=== PATIENT | female | born 1985 | race Caucasian/White ===

== ENCOUNTER 2022-01-23 22:54 | Emergency (ER) | payer OTHER, SELFPAY ==
[2022-01-23 22:58] VITALS: BP 123/83; PULSE 98; RESP 18; TEMP 36.6; O2SAT 100; BMI 31.1
--- NOTE | 2022-01-23 23:16 | ED.CHESTPAIN ---
HPI - Chest Pain General Time Seen by Provider: 23:16 Date Seen: 01/23/22 Chief Complaint: Chest Pain Stated Complaint: Chest Pain Time Seen by Provider: 01/23/22 23:16 Source: patient, RN notes reviewed and old records reviewed Mode of arrival: ambulatory Limitations: no limitations History of Present Illness HPI narrative: Noa is a very pleasant 36-year-old female not with a history of migraines who comes to the emergency room with chest pain. Patient notes that she has had lifelong episodes of chest pain that she cause anginal pains. She notes that when this happens she gets pain in her left anterior chest and it becomes hard to breathe. Traditionally these ring for approximately 1 minute. However she notes that over the past year she has had increasing pain. In the past 1-1/2 months she has had chest pain daily at baseline. She notes that pain will suddenly increased and she has caught her her heart rate exceeding 100 while at rest. This is been lasting up to 30 minutes. She states that she gets the ?bad pain? approximately 1 to 3 times a day. She did arrives it as sharp and under her left chest. She notes that she has never seen Cardiology nor has she had a stress test. This is associated with shortness of breath when it is at its worst. No nausea vomiting. Tonight approximately 2200 hours she awoke with pain in her chest radiating into her left shoulder and down her arm. She describes pins and needles in her arm and fingers. She states that this is persisting. She denies any neck pain. She has not had any trauma. She did have recent viral illness in early December. She describes this is a cold that was waxing and waning. She tested negative for COVID. She denies any lower extremity leg swelling history of DVT unusual cough. She has not had fever or chills. Patient also notes that she had a persistent migraine from December of 2020 until September of 2021. She states that during that time they tried multiple medications in the hopes that her headaches would improve. She did have chest pain at that time and the pain was blamed on medication. Related Data Home Medications Medication Instructions Recorded Confirmed clonazepam 1 mg tablet mg 01/23/22 duloxetine 20 mg capsule,delayed mg PO 01/23/22 release eletriptan 40 mg tablet mg 01/23/22 eptinezumab-jjmr 100 mg/mL mg IV 01/23/22 intravenous solution (Vyepti) escitalopram oxalate 5 mg tablet mg 01/23/22 hydroxyzine HCl 25 mg tablet mg 01/23/22 naproxen 500 mg tablet mg 01/23/22 olanzapine 10 mg tablet mg 01/23/22 onabotulinumtoxinA 200 unit unit 01/23/22 solution for injection (Botox) ondansetron 4 mg disintegrating mg 01/23/22 tablet promethazine 25 mg tablet mg 01/23/22 Allergies Allergy/AdvReac Type Severity Reaction Status Date / Time No Known Drug Allergies Allergy Verified 01/23/22 23:04 Review of Systems Status of ROS Reports: 10 or more systems reviewed and unremarkable except as noted in History and below PFSH [facility] Social History Smoking Status: Never smoker How often do you have a drink containing alcohol: monthly or less AUDIT-C Alcohol total score: 1 Non-prescribed substance use: denies use Exam Narrative 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 No tobacco or alcohol use No drug use Const Vital Signs, click to edit/add: Vital Signs - 24 hr 01/23/22 22:58 Temperature 97.8 F Pulse Rate [Left Pulse Oximeter] 98 Respiratory Rate 18 Blood Pressure [Right Upper Arm] 123/83 Pulse Oximetry 100 Oxygen Delivery Method Room Air Documenting provider has reviewed patient's vital signs: yes Common normals: no apparent distress, average body habitus, oriented x3 and no limitations General appearance: cooperative, comfortable and well kempt [facility] Common normals: head/scalp atraumatic Head and scalp: atraumatic Eye Common normals: PERRL General eye: normal appearance of both eyes Pupil: PERRL Neck & C-Spine Common normals: full ROM and supple Cervical spine: cervical ROM normal; no cervical spine tenderness Resp Common normals: normal respiratory effort and clear to auscultation bilaterally Effort & inspection: able to speak in complete sentences Auscultation: clear to auscultation bilaterally Cardio Common normals: regular rate and regular rhythm Rate: regular rate Rhythm: regular rhythm Heart sounds: no rubs Other: Patient did not note relief of her chest pain my leaning forward. No rub GI Common normals: soft to palpation Palpation: soft Common normals: no CVA tenderness Bladder/kidney exam: no CVA tenderness Back & Pelvis Common normals: no CVA tenderness Extremity Common normals: normal to inspection Neuro Common normals: oriented x3 Psych Common normals: mental status grossly normal and thought process normal Appearance: well kempt Thought process: normal thought process Course Course Hospital Course: Patient notes lifelong episodes of chest discomfort. Notes increasing episodes of this over the past 1 and half months with associated tachycardia but normal oximetry. We will do a rule out protocol with EKG and troponin x2. Will also check CBC, CRP, D-dimer, comprehensive panel and urinalysis. Chest x-ray pending. Will use Toradol 15 mg IV after initial troponin is negative. Vital Signs Vital signs: Initial Vital Signs Temperature 97.8 F 01/23/22 22:58 Temperature Source Temporal Artery Scan 01/23/22 22:58 Pulse Rate 98 01/23/22 22:58 Respiratory Rate 18 01/23/22 22:58 Blood Pressure 123/83 01/23/22 22:58 Blood Pressure Mean 96 01/23/22 22:58 Blood Pressure Position Sitting 01/23/22 22:58 Pulse Oximetry 100 01/23/22 22:58 Oxygen Delivery Method 01/23/22 22:58 Vital Signs Temperature 97.8 F 01/23/22 22:58 Pulse Rate 98 01/23/22 22:58 Respiratory Rate 18 01/23/22 22:58 Blood Pressure 123/83 01/23/22 22:58 Pulse Oximetry 100 01/23/22 22:58 Oxygen Delivery Method 01/23/22 22:58 Temperature 97.8 F 01/23/22 22:58 Pulse Rate 98 01/23/22 22:58 Respiratory Rate 18 01/23/22 22:58 Blood Pressure 123/83 01/23/22 22:58 Pulse Oximetry 100 01/23/22 22:58 Oxygen Delivery Method 01/23/22 22:58 MDM - Chest Pain MDM Narrative Medical decision making narrative: 1. Chest pain-patient has reassuring initial EKG and negative troponin. She is receiving Toradol at this time. No evidence of pericarditis, acute coronary syndrome. Awaiting D-dimer and inflammatory markers. If negative recommend follow-up with primary MD for stress test. Further disposition per my partner Dr. Barrientos. Medical Records Data Attestation: I reviewed the patient's medical records. Lab Data Attestation: I reviewed the patient's lab results. Labs: Lab Results 01/23/22 01/23/22 01/23/22 Range/Units 23:31 23:42 23:42 WBC 10.50 (4.50-11.00) K/uL RBC 4.46 (4.00-5.20) m/uL Hgb 13.0 (12.0-16.0) gm/dL Hct 38.8 (33.0-51.0) % MCV 87 (80-100) fL MCH 29 (26-34) pg MCHC 34 (32-36) gm/dL RDW Coeff of Yohan 13.1 (11.5-15.5) % Plt Count 373 (140-440) K/uL Neut % (Auto) 58.3 (42.0-72.0) % Lymph % (Auto) 29.0 (20-44) % Price % (Auto) 9.9 (0.0-11.0) % Eos % (Auto) 2.0 (0.0-7.0) % Baso % (Auto) 0.5 (0.0-3.0) % Neut # (Auto) 6.12 (1.7-7.0) K/uL Lymph # (Auto) 3.05 H (0.90-2.90) K/uL Price # (Auto) 1.00 H (0.00-0.90) K/UL Eos # (Auto) 0.21 (0.00-0.50) K/uL Baso # (Auto) 0.05 (0.00-0.30) K/uL Abs Immat Gran (auto) 0.03 (0.00-0.30) K/uL D-Dimer Quant (PE/DVT) 0.34 (0.00-0.50) ug/ml Sodium (135-149) mmol/L Potassium (3.6-5.1) mmol/L Chloride (96-114) mmol/L Carbon Dioxide (20-32) mmol/L BUN (5-24) mg/dL Creatinine (0.5-1.5) mg/dL Estimated Creat Clear Estimated GFR ml/min Glucose (60-115) mg/dL Calcium (8.4-10.6) mg/dL Total Bilirubin (0.1-1.5) mg/dL AST (12-35) U/L ALT (4-35) U/L Alkaline Phosphatase (40-150) U/L C-Reactive Protein (0.5-1.0) mg/dL Total Protein (6.0-8.3) g/dL Albumin (3.3-5.0) g/dL POC Troponin I 0.01 (0.01-0.04) ng/ml 01/23/22 Range/Units 23:42 WBC (4.50-11.00) K/uL RBC (4.00-5.20) m/uL Hgb (12.0-16.0) gm/dL Hct (33.0-51.0) % MCV (80-100) fL MCH (26-34) pg MCHC (32-36) gm/dL RDW Coeff of Yohan (11.5-15.5) % Plt Count (140-440) K/uL Neut % (Auto) (42.0-72.0) % Lymph % (Auto) (20-44) % Price % (Auto) (0.0-11.0) % Eos % (Auto) (0.0-7.0) % Baso % (Auto) (0.0-3.0) % Neut # (Auto) (1.7-7.0) K/uL Lymph # (Auto) (0.90-2.90) K/uL Price # (Auto) (0.00-0.90) K/UL Eos # (Auto) (0.00-0.50) K/uL Baso # (Auto) (0.00-0.30) K/uL Abs Immat Gran (auto) (0.00-0.30) K/uL D-Dimer Quant (PE/DVT) (0.00-0.50) ug/ml Sodium 138 (135-149) mmol/L Potassium 3.5 L (3.6-5.1) mmol/L Chloride 106 (96-114) mmol/L Carbon Dioxide 23 (20-32) mmol/L BUN 14 (5-24) mg/dL Creatinine 0.7 (0.5-1.5) mg/dL Estimated Creat Clear 89.56 Estimated GFR 116 ml/min Glucose 101 (60-115) mg/dL Calcium 10.2 (8.4-10.6) mg/dL Total Bilirubin 0.1 (0.1-1.5) mg/dL AST 25 (12-35) U/L ALT 25 (4-35) U/L Alkaline Phosphatase 71 (40-150) U/L C-Reactive Protein 1.1 H (0.5-1.0) mg/dL Total Protein 7.2 (6.0-8.3) g/dL Albumin 4.5 (3.3-5.0) g/dL POC Troponin I (0.01-0.04) ng/ml Imaging Data Chest x-ray: Attestation: I have reviewed the pertinent imaging results. My impression: No acute infiltrates or mediastinal widening. Radiologist's impression: INDINGS: The sensitivity and specificity of the exam are moderately limited by the patient`s body habitus.? Mediastinum: The mediastinum is normal in appearance. The heart silhouette is normal in size and morphology. Lung: Both lungs are unremarkable in appearance. The right apex is excluded. No sign of pleural effusion seen. No pneumothorax is identified. Bone and Soft tissue: Unremarkable for age. IMPRESSION: 1. No acute cardiopulmonary disease is seen. ECG Data Attestation: I personally reviewed and interpreted this ECG as follows: ECG interpretation date: 01/24/22 Interpretation: EKG 1. By my read shows sinus rhythm at a rate of 89. Isolated Q-wave in [address] or T-wave changes. No evidence of pericarditis or acute coronary syndrome. Discharge Plan Discharge Clinical Impression: Atypical chest pain Patient Disposition: Home, Self-Care Condition: Improved Additional Instructions: Follow-up with your primary MD or clinic. Would recommend stress testing. Return as needed or seek medical attention for worsening or onset of new symptoms. Prescriptions: No Action clonazepam 1 mg tablet olanzapine 10 mg tablet promethazine 25 mg tablet hydroxyzine HCl 25 mg tablet ondansetron 4 mg tablet,disintegrating naproxen 500 mg tablet eletriptan 40 mg tablet escitalopram oxalate 5 mg tablet duloxetine 20 mg capsule,delayed release(DR/EC) PO Botox 200 unit recon soln Label Comments: 200 unit every three months Vyepti 100 mg/mL solution IV Label Comments: 100 mg intravenously every three months Follow Up/Referrals: Olga Rivas, REMEDIATION PROJECT ENGINEER, EMISSIONS TESTING TECHNICIAN [Primary Care Provider] - Stand Alone Forms: [employer] Info Instructions
--- NOTE | 2022-01-23 23:31 | CRLHL7_ITS ---
For Patients: As a result of the Century Cures Act, medical imaging exams and procedure reports are released immediately into your electronic medical record. You may view this report before your referring provider. If you have questions, please contact your health care provider. INDICATION: Chest pain TECHNIQUE: Chest radiograph 1 view COMPARISON: None FINDINGS: The sensitivity and specificity of the exam are moderately limited by the patient`s body habitus. Mediastinum: The mediastinum is normal in appearance. The heart silhouette is normal in size and morphology. Lung: Both lungs are unremarkable in appearance. The right apex is excluded. No sign of pleural effusion seen. No pneumothorax is identified. Bone and Soft tissue: Unremarkable for age. IMPRESSION: 1. No acute cardiopulmonary disease is seen. Dictated by: Tevin Odonnell MD @ 01/23/2022 23:43:06 (Electronically Signed)
--- OUTSIDE RECORDS SUMMARY | 2022-01-23 23:47 | XMS_ITS | Encounter Summary ---
:1985 Author Organization [facility] Address [address] [place] [address] Care Team Providers Name Role Phone None, Pcp Primary Care Provider Unavailable Encounter Details Date Type Department Care Team Description 07/03/2020 Lab Luke Alas Sore throat [address] [place], [place] [address] Social History Tobacco Use Types Packs/Day Years Used Date Never Smoker Smokeless Tobacco: Never Used Alcohol Use Standard Drinks/Week Comments Yes 0 (1 standard drink = 0.6 oz pure alcoho l) social Alcohol Habits Answer Date Recorded How often do you have a drink containing alcohol? Not asked How many drinks containing alcohol do you have on a typical Not asked day when you are drinking? How often do you have six or more drinks on one occasion? No t asked Comment: social 07/03/2020 Sex Assigned at Date Recorded Not on file documented as of this encounter Plan of Treatment Not on filedocumented as of this encounter Procedures Procedure Name Priority Date/Time Associated Diagnosis Comme nts RAPID GROUP A STREP Routine 07/03/2020 2:50 PM Sore throat Re sults for this SCREEN PROFESSOR OF PHYSICS procedure are i n the results section. STREP A CULTURE, Routine 07/03/2020 2:50 PM Sore throat Resul ts for this THROAT PROFESSOR OF PHYSICS procedure are i n the results section. documented in this encounter Results Strep A culture, throat (07/03/2020 2:50 PM PROFESSOR OF PHYSICS) [facility] Method Time Signature Throat Strep Negative for 07/05/2020 [place] A Culture Group A 7:12 AM [facility] Strep at 48 LABORATORY hrs. Specimen Anatomical Collection Method Collection Time Receive d Time (Source) Location / / Volume Laterality Group A Strep 07/03/2020 2:50 PM 07/05/19 21 1:39 (Throat) PROFESSOR OF PHYSICS PM PROFESSOR OF PHYSICS Comment: GROUP A THROAT CULTURE Quinn Abraham MD LAB MICROBIOLOGY - GENERAL O AFTAB Performing Organization Address City/State/ZIP Code Phon e Number [facility] [address] [place] [id number] Rapid strep screen (07/03/2020 2:50 PM PROFESSOR OF PHYSICS) athologist Signature Strep A Ag, NEGATIVE Negative 07/03/2020 [facility] Rapid 3:41 PM PROFESSOR OF PHYSICS [place] Specimen Anatomical Collection Method Collection Time Receive d Time (Source) Location / / Volume Laterality Swab (Throat 07/03/2020 2:50 PM 2:59 Swab) PROFESSOR OF PHYSICS PM PROFESSOR OF PHYSICS Quinn Abraham MD LAB BODY FLUIDS AND STOOLS O AFTAB Performing Organization Address City/State/ZIP Code Phon e Number [facility] [address] [place] [address] documented in this encounter Visit Diagnoses Diagnosis Sore throat Acute pharyngitis documented in this encounter Care Teams Transit Planning Director Relationship Specialty Start Date End Date None, Pcp PCP - General Drywall Stripper 07/03/20 [address] [place] [address] documented as of this encounter
--- OUTSIDE RECORDS SUMMARY | 2022-01-23 23:47 | XMS_ITS | Encounter Summary ---
:1985 Author Organization [facility] Address [address] [place] [address] Care Team Providers Name Role Phone Sharon Mijares MD Primary Care Provider [phone] Reason for Visit Procedure/Equipment (Routine) - Incomplete Specialty Diagnoses / Procedures Referred By Contact Refer red To Contact Diagnoses Cervicogenic headache Chronic migraine without aura without status migrainosus, not intractable Josey Stringer, ELECTRICAL HARDWARE ENGINEER, Procedures MR Cervical Spine WO IV Cont HAND BINDER STRIPPER [address] [place], [place] [address] Referral ID Status Reason Start Date Expiration Date Visits V isits Requested Authorized [id number] Incomplete 03/27/2021 06/26/2022 1 1 Encounter Details Date Type Department Care Team Description 03/27/2021 [place] Josey Brice, Cervicoge roger headache; Procedure [place] [id number] ELECTRICAL HARDWARE ENGINEER, HAND BINDER STRIPPER Chronic migraine without aura without st atus migrainosus, not intractable Radiology MRI [address] [address] [place] [id number] [phone] Social History Tobacco Use Types Packs/Day Years Used Date Smoking Tobacco: Never Smokeless Tobacco: Never Alcohol Use Standard Drinks/Week Comments No 0 (1 standard drink = 0.6 oz pure alcoho l) Sex Assigned at Date Recorded Not on file documented as of this encounter Plan of Treatment Not on filedocumented as of this encounter Procedures Procedure Name Priority Date/Time Associated Diagnosis Comme nts MR CERVICAL SPINE Routine 03/27/2021 5:04 PM Cervicogeni c headache Results for this WO IV CONT UNIX SYSTEM ADMINISTRATOR Chronic migraine procedure a re in without aura without the res ults status migrainosus, section. not intractable documented in this encounter Results MR Cervical Spine WO IV Cont (03/27/2021 5:04 PM UNIX SYSTEM ADMINISTRATOR) Anatomical Region Laterality Modality Spine, C-Spine, Neck, Vascular Magnetic Resonance Specimen (Source) Anatomical Collection Method Collection Time Re ceived Time Location / / Volume Laterality 03/27/2021 4:47 PM UNIX SYSTEM ADMINISTRATOR Impressions 03/28/2021 7:57 AM UNIX SYSTEM ADMINISTRATOR INDICATION: cervicogenic headache, question upper cervical structural cause TECHNIQUE: ??MRI of the cervical spine w ithout contrast. COMPARISON: ??None. FINDINGS: ??The visualized midline poste rior fossa structures are unremarkable. ??Normal cord signal. ??Normal marrow signal. ??Normal alignment. The visualized paraspinal structures unremarkable. ? Axial: C2-3: Unremarkable. C3-4: Unremarkable. C4-5: Mild bilateral uncovertebral joint hypertrophy. No significant canal or foraminal stenosis. ?? C5-6: Slight bilateral uncovertebral randa nt hypertrophy. No significant canal or foraminal stenosis. C6-7: Mild bilateral uncovertebral joint hypertrophy. No significant canal or foraminal stenosis. C7-T1: Unremarkable. IMPRESSION: ?? 1. No significant canal or foraminal majo nosis. Procedure Note Bandar Miller MD - 03/28/2021For matting of this note might be different from the original. IMPRESSION INDICATION: cervicogenic headache, quest ion upper cervical structural cause TECHNIQUE: MRI of the cervical spine wit hout contrast. COMPARISON: None. FINDINGS: The visualized midline posteri or fossa structures are unremarkable. Normal cord signal. Normal marrow signal. Normal alignment. The visualized paraspinal structures unremarkable. Axial: C2-3: Unremarkable. C3-4: Unremarkable. C4-5: Mild bilateral uncovertebral joint hypertrophy. No significant canal or foraminal stenosis. C5-6: Slight bilateral uncovertebral randa nt hypertrophy. No significant canal or foraminal stenosis. C6-7: Mild bilateral uncovertebral joint hypertrophy. No significant canal or foraminal stenosis. C7-T1: Unremarkable. IMPRESSION: 1. No significant canal or foraminal majo nosis. Josey Stringer ELECTRICAL HARDWARE ENGINEER, HAND BINDER STRIPPER RAD MRI documented in this encounter Visit Diagnoses Diagnosis Cervicogenic headache Headache Chronic migraine without aura without st atus migrainosus, not intractable Chronic migraine without aura, without m ention of intractable migraine without mention of status migrainosus documented in this encounter Care Teams Nougat Cutter Machine Relationship Specialty Start Date End Date Sharon Mijares MD PCP - General 07/30/10 [address] [place] [address] documented as of this encounter
--- OUTSIDE RECORDS SUMMARY | 2022-01-23 23:47 | XMS_ITS | Encounter Summary ---
:1985 Author Organization [facility] Address [address], [place] [address] Care Team Providers Name Role Phone Sharon Mijares MD Primary Care Provider [phone] Reason for Visit Reason Comments HEADACHE Encounter Details Date Type Department Care Team Description 02/26/2021 Telephone Specialty [facility] [address] Riddhi Munoz LPN HEADACHE Neurology [address] [place], [place] [id number] Social History Tobacco Use Types Packs/Day Years Used Date Smoking Tobacco: Never Smokeless Tobacco: Never Alcohol Use Standard Drinks/Week Comments No 0 (1 standard drink = 0.6 oz pure alcoho l) Sex Assigned at Date Recorded Not on file documented as of this encounter Nursing Notes Riddhi Munoz LPN - 02/27/2021 4:11 PM CDT Left patient a detailed message with her permission Gave message from Myke and she she asked about how to use the DHE Riddhi Munoz LPN - 02/27/2021 11:12 AM CDT Left patient a message to return call. PA for DHE was approved Josey Stringer APRN, CNP - 02/26/2021 9:22 AM CDT I am sorry to hear she is still struggling. -As we discussed at her visit, I would like her to complete a 10 night regimen of tizanidine; she should continue this until complete. -DHE nasal spray was ordered at visit; can we check on the status of PA? If denied, can try rectal suppositories -She should limit OTC analgesics to no more than 2-3 days per week, she may have rebound headache ifshe takes more frequently - There are other headache medications we can try if the above is not successful, but additional analgesics or pain medications will not be recommended Riddhi Munoz LPN - 02/26/2021 8:56 AM CDT Patient left a message that her DIMAS were worse. She stated that the tizanidine is not working. She took tylenol and Ibuprofen but stopped due too taking the max and not wanting to take too much. Asking what else she can do. Trying to find the best way to manage the DIMAS's. Mentioned if there are other pain medications. Attempted to call patient and see if she would do a GD at 930. No answer. documented in this encounter Plan of Treatment Not on filedocumented as of this encounter Visit Diagnoses Not on filedocumented in this encounter Care Teams Naval Science Teacher Relationship Specialty Start Date End Date Sharon Mijares MD PCP - General 07/30/10 [address] [place], [place] [id number] documented as of this encounter
--- OUTSIDE RECORDS SUMMARY | 2022-01-23 23:47 | XMS_ITS | Clinical Summary ---
:1985 Author Organization [facility] [place] [address] Care Team Providers Name Role Phone [place] Primary Care Provider [phone] Allergies Active Allergy Reactions Severity Noted Date Comments Diphenhydramine Shortness Of Breath, High 04/26/2021 Barbie ent c/o sensation of Cough choking and kaylen bility to catch her breat h causing a severe coughi ng episode followi ng saline IV flush (about 3-4cc) after IV Benadr yl 50mg. Tachy during th at up to 160s. Anxious a nd emotional. Left arm feels stiff and painful after this (arm IV is in). She has to lerated Benadryl in the past, though, patient reports. Clindamycin Myalgia Low 12/06/2016 Glycolic Acid Other - Describe In Low 03/17/2017 Reactio n to vicryl Comment Field suture with valenzuela ture granuloma forma tion. Lactic Acid Rash Low 12/05/2016 Miconazole Rash Low 09/28/2013 Polyglactin 370 Other - Describe In 04/09/2019 disso lvable stitches Comment Field dont dissolve Prochlorperazine Anxiety Low 02/23/2021 Propranolol Hypotension Medium 02/14/2021 Other reaction( s): Hypotension Tioconazole Itching 09/04/2014 PN: Redness Redness Medications Medication Sig Dispensed Refills Start Date End Date Status Take 1 tablet by 100 tablet 0 07/06/2019 A ctive vitamin-folic acid 1 mouth once daily. mg ( RX) tablet/capsuleIndica tions: (spontaneous vaginal delivery) ondansetron (ZOFRAN Place 1 Tablet (4 20 Tablet 0 02/09/2021 Active ODT) 4 mg mg) on the tongue disintegrating every 8 hours if tabletIndications: needed. Nonintractable chronic migraine aspirin-acetaminophe Take 1-2 Tablets by 0 Active n-caffeine (EXCEDRIN mouth every 6 hours EX STR) 250-250-65 if needed for mg Headache. Max acetaminophen dose: 4000mg in 24 hrs. busPIRone (BUSPAR) Take 20 mg by mouth 0 04/10/2021 Active 10 mg tablet 3 times daily. clonazePAM Take 1 mg by mouth 0 03/26/2021 Active (KLONOPIN) 1 mg once daily if tablet needed. Emgality Pen 120 Inject 120 mg 0 04/02/2021 Active mg/mL pen subcutaneous every 4 weeks. promethazine Take 25 mg by mouth 0 04/01/2021 Active (PHENERGAN) 25 mg every 6 hours if tablet needed. For nausea (or rescue therapy for severe headache). Limit: 9 days/month. Nurtec ODT [address] 75 mg on the 0 04/11/2021 Active orally tongue once daily disintegrating if needed. tablet SUMAtriptan Inject 6 mg 0 04/03/2021 Activ e (IMITREX) 6 mg/0.5 subcutaneous 2 mL subcutaneous pen times daily if injector needed. Do not take more than 2 in 24 hours or 9 days per month. hydrOXYzine HCL Take 25 mg by mouth 0 02/20/2021 Active (ATARAX) 25 mg every 6 hours if tablet needed (Sleep). ibuprofen (ADVIL; Take 1 Tablet by 0 01/20/2021 Active MOTRIN) 600 mg mouth every 6 hours tablet if needed. LORazepam (ATIVAN) 1 Take 1 mg by mouth 0 02/20/2021 Active mg tablet once daily if needed. naproxen (NAPROSYN) Take 500 mg by 0 04/01/2021 Active 500 mg tablet mouth every 8 hours if needed. Max 2 tablets per day. OLANzapine (ZYPREXA, Take 1 Tablet (10 15 Tablet 0 04/15/2021 Active FILM COATED TABLET,) mg) by mouth 2 10 mg times daily if tabletIndications: needed (headache). Other migraine with status migrainosus, intractable albuterol HFA Inhale 2 Puffs by 1 Each 0 04/26/2021 Active (PRO-AIR; VENTOLIN; mouth every 6 hours PROVENTIL) 90 if needed for mcg/actuation Shortness of Breath inhalerIndications: 1st choice. Shortness of breath hydrOXYzine HCL Take 1 Tablet (25 10 Tablet 0 04/26/2021 Active (ATARAX) 25 mg mg) by mouth every tabletIndications: 8 hours if needed Adverse effect of for Anxiety. drug, initial encounter Active Problems Problem Noted Date Anxiety 02/07/2021 Depression 02/07/2021 Migraine 02/05/2021 Nonintractable chronic migraine 02/05/2021 (spontaneous vaginal delivery) 07/05/2019 Calculus of kidney 04/11/2019 Supervision of other normal 12/28/2018 Overview: 33 y.o. Medical concerns: Anxiety, Migraines Early GTT indicated: BMI >25 or >23 in A ann Americans and brother has type 2 diabetes H/O vag delivery X1 08/10/15 Marcell (oligohydramnios) Adopted son Vineet Genetic screening: checking insurance BMI:31; 15 to 20# Recommended wt gain Ultrasound findings: 11/22/18- 6w1d JAMIE 12/02/18- 7w3d JAMIE 07/18/19 Flu vaccine: advised Pertussis Vaccine: advised Peds: undecided : Zachary FOB: involved, name Plantar wart 05/26/2016 Verruca 04/30/2016 Overview: Formatting of this note might be differe nt from the original. Cryotherapy x4 (last 04/30/16) to wart on R heel Formatting of this note might be differe nt from the original. Formatting of this note might be differe nt from the original. Cryotherapy x4 (last 04/30/16) to wart on R heel Encounter for full-term uncomplicated delivery 016 Painful sexual intercourse 05/24/2015 Overweight (BMI 25.0-29.9) 09/28/2013 Resolved Problems Problem Noted Date Resolved Date Acute cystitis without hematuria 020 Immunizations Name Administration Dates Next Due Influenza Virus, Unspecified 01/29/2016, 04/03/2015 Influenza, IIV4 01/29/2016 Influenza,LAIV4 Live Intranasal (Flumist) 02/04/2014 Tdap 05/30/2019, 05/24/2015 Tuberculin Skin Test, Unspecified 06/04/2009 Family History Medical History Relation Name Comments Diabetes type II Brother Good Health Father Anxiety disorder Maternal Aunt Alzheimer's disease Maternal Grandfather COPD Maternal Grandmother tobacco use Anxiety disorder Mother Good Health Sister 1 Good Health Sister 2 Relation Name Status Comments Brother Father Alive Maternal Aunt Maternal Grandfather Maternal Grandmother Mother Alive Paternal Grandfather Alive Paternal Grandmother Alive Sister 1 Alive Sister 2 Alive Social History Tobacco Use Types Packs/Day Years Used Date Never Smoker Smokeless Tobacco: Never Used Tobacco Cessation: Counseling Given: Yes Alcohol Use Standard Drinks/Week Comments Not Currently 0 (1 standard drink = 0.6 oz pure alcoho l) Sex Assigned at Date Recorded Not on file Obstetrics History Para Term AB IAB SAB Ectopic Multiple Living Live Births 3 2 2 0 1 0 1 0 0 2 2 Date Outcome GA Total Labor/2nd/3rd Weight Sex Delivery Anes PTL Glory A 1 A5 Name Clin Labor 2014 SAB 5w0 d 08/09 Term F Vag Brenda /2015 ng Complications: PROM (premature rupture o f membranes) Comments: PROM, labor augmented wh en finally noted to be oligohydramnios 07/05/2019 Term 38w2d 0h 14m 3.48 kg M Vag Epidural N Living 8 9 HILDA FRANCO (7 lb NOA 10.8 oz) Complications: None Delivery Location: [facility] [address] MB L&D TRIAGE) Last Filed Vital Signs Vital Sign Reading Time Taken Comments Blood Pressure 120/69 04/26/2021 8:00 PM INDIRECT SALES EXEC Pulse 84 04/26/2021 9:00 PM INDIRECT SALES EXEC Temperature 36.7 ??C (98.1 ??F) 04/26/2021 4:25 PM INDIRECT SALES EXEC Respiratory Rate 18 04/26/2021 7:55 PM INDIRECT SALES EXEC Oxygen Saturation 98% 04/26/2021 9:00 PM INDIRECT SALES EXEC Inhaled Oxygen Concentration - - Weight 78 kg (172 lb) 04/26/2021 4:25 PM INDIRECT SALES EXEC Height 157.5 cm (5' 2) 04/26/2021 4:25 PM INDIRECT SALES EXEC Body Mass Index 31.46 04/26/2021 4:25 PM INDIRECT SALES EXEC Plan of Treatment Health Maintenance Due Date Last Done Comments COVID-19 vaccine series (#1) 03/09/1988 Pap test for age 21-65 09/06/2021 09/06/2018 BMI (ht and wt on same day) for 09/20/2021 09/20/2020, 12/28, age 18+ 01/06/2019, Additional history exists Depression screening for age 12+ 09/21/2021 09/21/2020, , 09/20/2020, Additional history exists Influenza for age 9-49 12/26/2021 01/29/2016, 01/29/2016, 04/03/2015, Additional history exists Tetanus booster 05/30/2029 05/30/2019, 05/24/2015 Hepatitis C screening for age Completed 01/06/2019, 2018 18-79 Tdap Completed 05/30/2019, 05/24/2015 Results Not on filefrom Last 3 Months Insurance Payer Benefit Plan / Subscriber ID Effective Dates Phone Addre ss Type Group [employer] [id number] 2016-Prese [address] [place] [address] [employer] [id number] 2018-Presen [address] [place] [address] Noa FRANCO Personal/Family Self [address] (Home) [place] [address] Advance Directives Latest Code Status on File Code Status Date Activated Date Inactivated Comments Full Code 04/13/2021 3:26 AM 04/14/2021 6:25 PM Code Status Discussion: Reviewed Preferences Full Code 02/07/2021 2:50 PM 02/09/2021 1:05 PM Code Status Discussion: Discussed Full Code 07/05/2019 3:46 AM 07/06/2019 2:50 PM Care Teams Esthetic Dermatologist Relationship Specialty Start Date End Date [facility] Luke Alas Ar PCP - General 02/05/21 [address] [address] [place] [address]
--- OUTSIDE RECORDS SUMMARY | 2022-01-23 23:47 | XMS_ITS | Clinical Summary ---
:1985 [facility] Address [address], [place] [address] Care Team Providers Name Role Phone Sharon Mijares MD Primary Care Provider [phone] Source Comments You are receiving this document as you are listed as the primary care provider,follow-up provider, or the patient has been referred to you for consultation.This is in compliance with the Medicare and Medicaid EHR Incentive Program,which states Providers who transition their patient to another setting of careor provider of care or refers their patient to another provider of care shouldprovide summarycare record for each transition of care or referral. [facility] Allergies Active Allergy Reactions Severity Noted Date Comments Tioconazole 09/04/2014 PN: Redness Medications Medication Sig Dispensed Refills Start Date End Date Status Take by mouth. 0 04/26/2015 Acti ve Fobbqzdj-Psn-Eq-FA (/IRON OR) cholecalciferol Take 1,000 Units 0 06/21/2015 Active (VITAMIN D3) 1000 UNITS by mouth Daily. tablet hydrOXYzine HCl Take 25 mg by 0 02/20/2021 Active (ATARAX) 25 MG tablet mouth every 6 hours as needed. citalopram (CELEXA) 10 Take 10 mg by 0 02/20/2021 Active MG tablet mouth. galcanezumab-gnlm 0 02/12/2021 A ctive (EMGALITY) 120 MG/ML injection ibuprofen (MOTRIN) 600 600 mg. 0 01/20/2021 Active MG tablet Rimegepant Sulfate 0 02/06/2021 Active (NURTEC) 75 MG TBDP tiZANidine (ZANAFLEX) 2 Take 1-2 tabs by 20 Tablet 1 1 Active MG tablet mouth at night for 10 nights. predniSONE (DELTASONE) Prednisone (20 mg 12 Tablet 0 1 Active 20 MG tablet tablets) 6 day taper for headache rescue: Take 3 tabs (60 mg) day 1 and 2, 2 tabs (40 mg) day 3 and 4, and 1 tab (20 mg) day 5 and 6. Take prednisone in the morning with breakfast, if taken late in the day you may not be able to sleep at night. To protect your stomach always take with food and if needed Prilosec OTC. Do NOT take Aleve or any NSAIDs while on prednisone, including ketorolac injections. SUMAtriptan Succinate 6 Inject at onset 12 Each 5 03/12/2021 Active MG/0.5ML SOAJ of migraine. May repeat in 1-2 hours if needed. Do not take more than two in 24 hours or 9 days per month. Active Problems Problem Noted Date Plantar wart 05/26/2016 Common wart 04/30/2016 Overview: Cryotherapy x4 (last 04/30/16) to wart on R heel Heartburn during 06/21/2015 Back pain in 05/24/2015 Painful sexual intercourse 05/24/2015 Acquired absence of teeth 12/06/2008 Overview: LW Onset: September2008 ; Teeth Loss Extraction Headache 12/06/2008 Overview: LW Modifier: resolved after wisdom teeth removed Resolved Problems Problem Noted Date Resolved Date Exposure to genital herpes 01/14/2015 10/01/2015 Overview: Partner with rare outbreaks, no sx or dx with pt. ?antivirals at 36 wks? Encounter for supervision of normal first in first 01/11/2015 10/01/2015 trimester Immunizations Name Administration Dates Next Due Influenza IIV4 (Quadrivalent) 0.5mL (73433) 01/29/2016 TB Skin Test (PPD) 06/04/2009 TDAP (BOOSTRIX) 05/24/2015 Family History Medical History Relation Name Comments Hypertension Father Osteoporosis Maternal Grandmother Relation Name Status Comments Father Alive Mother Alive Brother Alive Maternal Grandfather Maternal Grandmother Alive Paternal Grandfather Alive Paternal Grandmother Alive Sister Alive Social History Tobacco Use Types Packs/Day Years Used Date Smoking Tobacco: Never Smokeless Tobacco: Never Alcohol Use Standard Drinks/Week Comments No 0 (1 standard drink = 0.6 oz pure alcoho l) Sex Assigned at Date Recorded Not on file Last Filed Vital Signs Vital Sign Reading Time Taken Comments Blood Pressure 117/86 02/21/2021 2:02 PM CDT Pulse 92 02/21/2021 2:02 PM CDT Temperature 36.7 ??C (98 ??F) 10/17/2016 5:01 PM CDT Respiratory Rate 20 02/21/2021 2:02 PM CDT Oxygen Saturation 100% 10/17/2016 5:01 PM CDT Inhaled Oxygen Concentration - - Weight 71.2 kg (157 lb) 07/07/2016 9:05 AM CDT Height 157.5 cm (5' 2) 10/01/2015 9:25 AM CDT Body Mass Index 28.72 10/01/2015 9:25 AM CDT Plan of Treatment Health Maintenance Due Date Last Done Comments HepB (1) 1985 COVID-19 Vaccine (#1) 03/09/1988 Adult Preventive Visit 09/06/2005 Pap 01/11/2018 01/11/2015 Influenza (#1) 2021 01/29/2016, 01/29/2016, 04/03/2015, Additional history exists DTaP/Tdap/Td (9 - Tdap) 05/30/2029 05/30/2019, 05/24/2015, 11/25/2010, Additional history exists Zoster/Shingles (1 of 2) 09/06/2037 Hep C Screening (Preventive Completed 05/04/2009 Services) HIV Screening (Preventive Completed 01/11/2015, 05/04/2009 Services) HPV Vaccine Aged Out No longer eligib le based on patient 's age to complete this topic HepA Aged Out No longer eligib le based on patient 's age to complete this topic Hib Aged Out No longer eligib le based on patient 's age to complete this topic IPV (Polio) Aged Out No longer eligib le based on patient 's age to complete this topic MCV4 Aged Out No longer eligib le based on patient 's age to complete this topic Pneumococcal Aged Out No longer eligib le based on patient 's age to complete this topic Insurance Payer Benefit Plan Subscriber ID Effective Phone Address Typ e / Group Dates [employer] [id number] 2016-Pres Commercial INSURED ent [employer] [id number] Effective for Commercial DENTAL PLAN INSURED all dates DENTAL (Work) Noa Franco Personal/Family Self 1985 [id number] (Home) [place] [address] Noa Franco Personal/Family Self [address] (Home) [place] [address] Care Teams Youth Agent Relationship Specialty Start Date End Date Sharon Mijares MD PCP - General 07/30/10 [address] [place] [address]
--- OUTSIDE RECORDS SUMMARY | 2022-01-23 23:47 | XMS_ITS | Encounter Summary ---
:1985 Author Organization [facility] Address [address] [place] [address] Care Team Providers Name Role Phone Sharon Mijares MD Primary Care Provider [phone] Reason for Visit Reason Comments Headache Encounter Details Date Type Department Care Team Description 03/25/2021 Therapy [facility] Willam Mcrae , Chronic migraine w/o - Physical Therapy PT aura w/o status [address] migrainosus, [place], [place] [id number] [place] [address] intractable (Primary [phone] Dx) Social History Tobacco Use Types Packs/Day Years Used Date Smoking Tobacco: Never Smokeless Tobacco: Never Alcohol Use Standard Drinks/Week Comments No 0 (1 standard drink = 0.6 oz pure alcoho l) Sex Assigned at Date Recorded Not on file documented as of this encounter Progress Notes Willam Mcrae, PT - 03/25/2021 3:30 PM CST [facility] Physical Therapy Progress Note Visit Number: 2 Initial Certification Period: 03/19/2021 to 06/17/21 Referring Provider: Josey Stringer Visit Diagnosis: 1. Chronic migraine w/o aura w/o status migrainosus, not intractable ?? Precautions: Anxiety SUBJECTIVE: Patient reports that neurologist wants to put her on a new anxiety medication, where psychiatrist and primary say no. Is looking at getting genetic testing done to determine medications to use. Has hadawful headaches without any change. Can't control them, and her headaches have gotten more intense with the the SNAG technique. Over the weekend, she had one of her typical migraines. OBJECTIVE Current Objective Findings: CROM: Flexion: chin to chest, pulling Extension: 100%, stiffness Rotation left: 65 degrees Rotation right: 65 degrees Joint mobility: Upper Cervical Hypomobile, Pain reproduction Lower Cervical Hypomobile CT junction Hypomobile, Pain reproduction Treatment/Education Today: Therapeutic exercise x 14 minutes: Review of symptoms. Education on changes, while negative, suggest that we are addressing tissue important to her headache, just doing the wrong thing Seated SNAG cervical extension C1-C2 with towel 2x20 - tactile cues for technique, education on anatomy Seated sternocleidomastoid stretch R/L 2x30 seconds each - cues for technique Education on plan for therapy. ?? Manual therapy x 24 minutes: Supine R/L sternocleidomastoid stretch contract relax MET - cues for pressure, post isometric relaxation - decreased headache following Supine R/L suboccipital stretch with long hold - cues for relaxation, education on patient question about cervical MRI, and this being a reasonable ask for her neurologist as PT believes this is comingfrom cervical spine Supine C1 and C2 mobilization R/L - manipulation position, grade III - decreased headache following Timed Code Treatment Minutes: 38 Total Treatment Minutes: 38 Current Home Exercise Program List: Access Code: [email or web address] URL: [email or web address] Date: 03/25/2021 Prepared by: Willam Mcrae Exercises Upper Cervical Extension SNAG with Strap - 2-3 x daily - 5 x weekly - 1 sets - 10-20 reps - slow andcontrolled speed Sternocleidomastoid Stretch - 2-3 x daily - 5 x weekly - 1 sets - 2-3 reps - 30- 45 hold - slow and controlled speed ASSESSMENT/PROGRESS TOWARD GOALS: Noa has had an increase in her headaches since last session. [place] that SNAG was most irritating.Did well with manual therapy and exercise in session with resolution of her headache in session. Will add this for home. Patient would benefit from additional physical therapy for her to facilitate return to prior level of function??and improve??quality of life. Functional Goals/Outcomes: (ongoing) HEP/Independent Management: Demonstrate independence with HEP and self- management following each treatment session Activity Tolerance: Tolerate household/work activities, including being a mother, with 50% less paindisturbance within 8-12 weeks. Exercise: Increase exercise program to 2 days per week in order to decrease headache frequency/intensity in 6-10 weeks. PLAN: Loading as tolerated, manual therapy as needed, functional dry needling as needed ITY MECHANIC SUPERVISOR documented in this encounter Plan of Treatment Not on filedocumented as of this encounter Visit Diagnoses Diagnosis Chronic migraine w/o aura w/o status salazar rainosus, not intractable - Primary Chronic migraine without aura, without m ention of intractable migraine without mention of status migrainosus documented in this encounter Care Teams Brake Mechanic Relationship Specialty Start Date End Date Sharon Mijares MD PCP - General 07/30/10 [address] [place] [address] documented as of this encounter
--- OUTSIDE RECORDS SUMMARY | 2022-01-23 23:47 | XMS_ITS | Clinical Summary ---
:1985 Author Organization [facility] Address [address] [place] [address] Care Team Providers Name Role Phone None, Pcp Primary Care Provider Unavailable Allergies Active Allergy Reactions Severity Noted Date Comments Clindamycin Low 12/06/2016 Other reaction( s): Myalgia Dust Mite Extract 04/09/2019 disolvable Glycolic Acid Other (see comments) Low 03/17/2017 Reacti on to vicryl suture with suture gra nuloma formation. Lactic Acid Rash Low 12/05/2016 Miconazole Rash Low 09/28/2013 Prochlorperazine Anxiety Low 02/23/2021 Propranolol Medium 02/14/2021 Other reaction( s): Hypotension Tioconazole Itching 09/04/2014 PN: Redness Medications Medication Sig Dispensed Refills Start Date End Date Status acetaminophen (TYLENOL) Take 650 mg 0 02/09/2021 Active 325 MG tablet by mouth busPIRone (BUSPAR) 7.5 MG Take 7.5 mg 0 03/12/2021 1 05/12/2021 Active tablet by mouth 2 times daily clonazePAM (KlonoPIN) 1 Take 1 mg by 0 02/27/2021 Active MG tablet mouth daily dihydroergotamine 0 02/21/2021 A ctive (MIGRANAL) 4 MG/ML nasal spray fluconazole (DIFLUCAN) Take 150 mg 0 01/23/2021 Active 150 MG tablet by mouth Galcanezumab-gnlm 0 02/12/2021 A ctive (Emgality) 120 MG/ML solution auto-injector hydrOXYzine (ATARAX) 25 Take 25 mg by 0 02/20/2021 Active MG tablet mouth every 6 hours as needed ibuprofen (ADVIL) 600 MG TAKE 1 TABLET 0 01/20/2021 Active tablet BY MOUTH EVERY 6 TO 8 HOURS NEEDED FOR PAIN LORazepam (ATIVAN) 0.5 MG Take 0.5 mg 0 02/09/2021 Active tablet by mouth if needed ondansetron ODT 0 02/09/2021 Act salma (ZOFRAN-ODT) 4 MG dispersible tablet multivitamin () Take 1 tablet 0 Active 27-0.8 MG tablet by mouth daily Rimegepant Sulfate 0 02/06/2021 Active (Nurtec) 75 MG tablet dispersible rizatriptan (MAXALT) 10 0 01/14/2021 Active MG tablet SUMAtriptan (IMITRIX) 6 Inject at 0 03/12/2021 Active MG/0.5ML injection onset of migraine. May repeat in 1-2 hours if needed. Do not take more than two in 24 hours or 9 days per month. Active Problems Problem Noted Date Anxiety 02/07/2021 Depression 02/07/2021 Migraine, unspecified, not intractable, without status migrainosus 02/05/2021 Calculus of kidney 04/11/2019 Overweight (BMI 25.0-29.9) 09/28/2013 Acquired absence of all teeth 12/06/2008 Overview: Formatting of this note might be differe nt from the original. Formatting of this note might be differe nt from the original. LW Onset: September2008 ; Teeth Loss Extraction Immunizations Name Administration Dates Next Due Influenza 6mo-49yrs Quad Preservative Free IM 01/29/2016, Influenza, Quadrivalent 02/04/2014 Influenza, Unspecified 01/29/2016, 04/03/2015 PPD Test 06/04/2009 Tdap 05/30/2019, 05/24/2015 Family History Medical History Relation Comments Diabetes Brother Heart disease Brother Relation Status Comments Brother Alive Father Alive Mother Alive Sister 1 Alive Sister 2 Alive [...] Sign Reading Time Taken Comments Blood Pressure 112/76 03/22/2021 3:28 PM TRANSFER CAR OPERATOR Pulse 112 03/22/2021 3:28 PM TRANSFER CAR OPERATOR Temperature 36.7 ??C (98 ??F) 03/22/2021 3:28 PM TRANSFER CAR OPERATOR Respiratory Rate 16 03/22/2021 3:28 PM TRANSFER CAR OPERATOR Oxygen Saturation 96% 03/22/2021 3:28 PM TRANSFER CAR OPERATOR Inhaled Oxygen Concentration - - Weight 79.8 kg (176 lb) 03/22/2021 3:28 PM TRANSFER CAR OPERATOR Height 159 cm (5' 2.6) 03/22/2021 3:28 PM TRANSFER CAR OPERATOR Body Mass Index 31.58 03/22/2021 3:28 PM TRANSFER CAR OPERATOR Plan of Treatment Health Maintenance Due Date Last Done Comments Pap Smear 1985 COVID-19 Vaccine (#1) 03/09/1988 Pneumococcal Vaccine: Pediatrics 09/06/1993 (0 to 5 Years) and At-Risk Patients (6 to 64 Years) (1 - PCV) HPV Vaccines Aged Out No longer eligib le based on patient's age to complete this topic Insurance Payer Benefit Plan / Subscriber ID Effective Phone Address T ype Group Dates [employer] [facility] [id number] 2016-Pres [address] [place] [address] Care Teams Data Abstractor Relationship Specialty Start Date End Date None, Pcp PCP - General Skylights Assembler 07/03/20 [address] [place] [address]
--- OUTSIDE RECORDS SUMMARY | 2022-01-23 23:47 | XMS_ITS | Encounter Summary ---
:1985 Author Organization [facility] Address [address] [place] [address] Care Team Providers Name Role Phone None, Pcp Primary Care Provider Unavailable Reason for Visit Reason Comments Sinus pressure Encounter Details Date Type Department Care Team Description 03/22/2021 Office Visit [place] Mehreen Vincent Daily headache (Primary Dx); [address] MD Maninder Other migraine without status migrainosu s, not intractable [place], [place] [phone] [facility] [address] [place] [address] Social History Tobacco Use Types Packs/Day Years [...] on file documented as of this encounter Last Filed Vital Signs Vital Sign Reading Time Taken Comments Blood Pressure 112/76 03/22/2021 3:28 PM ACRYLIC FABRICATOR Pulse 112 03/22/2021 3:28 PM ACRYLIC FABRICATOR Temperature 36.7 ??C (98 ??F) 03/22/2021 3:28 PM ACRYLIC FABRICATOR Respiratory Rate 16 03/22/2021 3:28 PM ACRYLIC FABRICATOR Oxygen Saturation 96% 03/22/2021 3:28 PM ACRYLIC FABRICATOR Inhaled Oxygen Concentration - - Weight 79.8 kg (176 lb) 03/22/2021 3:28 PM ACRYLIC FABRICATOR Height 159 cm (5' 2.6) 03/22/2021 3:28 PM ACRYLIC FABRICATOR Body Mass Index 31.58 03/22/2021 3:28 PM ACRYLIC FABRICATOR documented in this encounter Progress Notes Mehreen Vincent MD - 03/22/2021 4:00 PM CST Estab Patient Visit Subjective Patient ID: Noa Franco is a 35 y.o. female. HPI the patient is here today with her son who has an ear infection and was treated. She just wantedto be sure that her ears did not contain any fluid that could be a possible source of headaches. She is an otherwise healthy 35-year-old who has a history of migraine headaches in her past though they have always been reasonably treatable. Unfortunately approximately 2 months or so ago she had theonset of headaches have now been relatively daily headaches and this was before she acquired COVID-19 infection from which she has now recovered. She has been evaluated by neurology and she has her next visit scheduled in a couple weeks. She has had numerous studies done including MRI scans including MR venogram to be sure she did not have a thrombotic episode causing intractable daily headaches. She has had at least 2 CAT scans done within thelast year that have been normal. In fact her CT scans as well as her MRI scans have not shown any sinus disease that could be causing these headaches. She is actually edentulous from I suspect a hereditary condition so she should not be having any undiagnosed dental infection that could be causing these chronic daily headaches. She has been on numerous medications including the Imitrex, Maxalt, muscle relaxers antianxiety medications Tylenol ibuprofen a trial of prednisone all with basically no significant benefit. She has not had any spinal tap as of this time. Review of Systems Objective Physical Exam she is alert she appears comfortable with a blood pressure 112/76 pulse 112 regular rate and rhythm temp 98 current weight is 176 pounds her BMI is 31.6 and her O2 sats 96% room air Per her request we examined her ears and right ear is totally normal left ear may be have a little bit of fluid behind it but nothing that would be causing her symptoms to recur. Assessment/Plan Diagnoses and all orders for this visit: Daily headache Other migraine without status migrainosus, not intractable The overall assessment is by history daily headaches with underlying history of migraine headaches. She has neurology working with her and she has had really quite a extensive evaluation and as such there is no need for me to do any further evaluation at this time but reassured her that her ears do not seem to be a likely source for any contribution to her headache. Consult time was 15 minutes and all 15 minutes was spent with spent discussing with her her previousongoing work-up reviewing the chart and just taken a quick look at her eardrums. LIC FABRICATOR documented in this encounter Plan of Treatment Not on filedocumented as of this encounter Visit Diagnoses Diagnosis Daily headache - Primary Other migraine without status migrainosu s, not intractable documented in this encounter Care Teams Software Security Consultant Relationship Specialty Start Date End Date None, Pcp PCP - General [facility] Home 07/03/20 [address] [place] [address] documented as of this encounter
--- OUTSIDE RECORDS SUMMARY | 2022-01-23 23:47 | XMS_ITS | Encounter Summary ---
:1985 Author Organization [facility] Address [address] [place] [address] Care Team Providers Name Role Phone None, Pcp Primary Care Provider Unavailable Reason for Visit Reason Comments Sore Throat Encounter Details Date Type Department Care Team Description 07/03/2020 Office Visit [facility] Quinn Abraham, Sore throat (Primary [address] MD Dx) [place], [place] [address] [place] [address] [place], [place] [phone] Social History Tobacco Use Types Packs/Day Years [...] Sign Reading Time Taken Comments Blood Pressure 104/60 07/03/2020 2:43 PM TANK TERMINAL GAUGER Pulse 80 07/03/2020 2:43 PM TANK TERMINAL GAUGER Temperature 36.6 ??C (97.9 ??F) 07/03/2020 2:43 PM TANK TERMINAL GAUGER Respiratory Rate 16 07/03/2020 2:43 PM TANK TERMINAL GAUGER Oxygen Saturation 99% 07/03/2020 2:43 PM TANK TERMINAL GAUGER Inhaled Oxygen Concentration - - Weight 81.8 kg (180 lb 6.4 oz) 07/03/2020 2:43 PM TANK TERMINAL GAUGER Height 159 cm (5' 2.6) 07/03/2020 2:43 PM TANK TERMINAL GAUGER Body Mass Index 32.37 07/03/2020 2:43 PM TANK TERMINAL GAUGER documented in this encounter Progress Notes Quinn Abraham MD - 07/03/2020 2:40 PM CST Subjective Patient ID: Noa Franco is a 34 y.o. female. Chief Complaint Patient presents with ??? Sore Throat HPI Patient reports symptoms of sore throat since last night. Seems like it is getting worse. No fevers or chills. No cough. She had recent bout of stomach flu with her and her household contacts. She is worried she may have strep and does not want to spread to her kids at home. She states she has no history of seasonal allergies. Denies congestion, sneezing, itchy eyes. She has a history of GERD but that only was symptomatic during . Has been using a tea called throat coat not helping. The following portions of the patient's chart were reviewed in this encounter and updated as appropriate: Tobacco Allergies Meds Med Hx Surg Hx Fam Hx Soc Hx ROS ROS done as noted in HPI Objective Visit Vitals BP 104/60 (BP Location: Left arm, Patient Position: Sitting) Pulse 80 Temp 36.6 ??C (97.9 ??F) (Temporal) Resp 16 Ht 1.59 m (5' 2.6) Wt 81.8 kg (180 lb 6.4 oz) SpO2 99% BMI 32.37 kg/m?? Smoking Status Never Smoker BSA 1.9 m?? Physical Exam GEN: well appearing, no acute distress, vital signs reviewed HEENT: Sinuses nontender to percussion, conjunctivae normal, External ears clear and TM's normal, Nasal mucosa normal, oropharynx, tongue and buccal mucosa without lesions, erythema or exudate NECK: Thyroid non-tender and normal size, no cervical or supraclavicular adenopathy Rapid strep negative Assessment/Plan Diagnosis Plan 1. Sore throat Rapid strep screen Exam benign. Strep negative. Symptomatic cares discussed. Try warm salt water gargling. Tylenol OTC for pain relief. Return if symptoms worsen or fail to improve. Note created using voice dictation software. TERMINAL GAUGER documented in this encounter Plan of Treatment Not on filedocumented as of this encounter Results Rapid strep screen (07/03/2020 2:50 PM TANK TERMINAL GAUGER) P athologist Signature Strep A Ag, NEGATIVE Negative 07/03/2020 [facility] Rapid 3:41 PM TANK TERMINAL GAUGER MILL NECK Specimen Anatomical Collection Method Collection Time Receive d Time (Source) Location / / Volume Laterality Swab (Throat 07/03/2020 2:50 PM 2:59 Swab) TANK TERMINAL GAUGER PM TANK TERMINAL GAUGER Quinn Abraham MD LAB BODY FLUIDS AND STOOLS O RDERABLES Performing Organization Address City/State/ZIP Code Phon e Number [facility] [address] [place] [address] documented in this encounter Visit Diagnoses Diagnosis Sore throat - Primary Acute pharyngitis documented in this encounter Care Teams Mule Rider Relationship Specialty Start Date End Date None, Pcp PCP - General Dredge Deckhand 07/03/[address] [place] [phone] documented as of this encounter
--- OUTSIDE RECORDS SUMMARY | 2022-01-23 23:47 | XMS_ITS | Encounter Summary ---
:1985 Author Organization [facility] Address [address] [place] [address] Care Team Providers Name Role Phone Sharon Mijares MD Primary Care Provider [phone] Reason for Visit Reason Comments Headache Therapies (Routine) - New Request Specialty Diagnoses / Procedures Referred By Contact Refer red To Contact Diagnoses Chronic migraine without aura without status migrainosus, not intractable Anxiety (HR[facility]) Josey Stringer, HEARING EXAMINER, PHARMACY SPECIALIST [address] [place], [place] [address] Referral ID Status Reason Start Date Expiration Date Visits V isits Requested Authorized [id number] New Request 02/21/2021 02/21/2022 1 1 Encounter Details Date Type Department Care Team Description 03/19/2021 Therapy [facility] Willam Mcrae , Chronic migraine w/o - Physical Therapy PT aura w/o status [id number] [place], [place] [address] [place] [address] intractable (Primary [phone] Dx) Social History Tobacco Use Types Packs/Day Years Used Date Smoking Tobacco: Never Smokeless Tobacco: Never Alcohol Use Standard Drinks/Week Comments No 0 (1 standard drink = 0.6 oz pure alcoho l) Sex Assigned at Date Recorded Not on file documented as of this encounter Progress Notes ThorGhadan T, PT - 03/19/2021 7:45 AM CST [facility] Physical Therapy Headache Evaluation/Plan of Care Initial Certification Period: 03/19/2021 to 06/17/21 Referring Provider: Josey Stringer Visit Diagnosis: 1. Chronic migraine w/o aura w/o status migrainosus, not intractable Precautions: Anxiety Orders: Evaluate & treat Onset/Referral Date: 02/21/2021 SUBJECTIVE Reason for Visit: Patient reports that she had COVID about 2 weeks ago, and they kept testing her for last few months as she has had this hard to deal with headache. Headache never goes. Has had migraines forever, takesthe rescue meds, but then goes away after laying down. Would maybe get 1-2/week. Now headaches are daily. This headaches feels like a different headache with similar symptoms. Migraines never used to be in the face, but now is in the face (eyes, nose). Can get the squeezing tension headache, and otherdays it is sharp, and sometimes starts in neck and goes over the head. Has had sinus checked, and next step is to get a full allergy panel to test for anything. Has been seeing a chiropractor, with shegets acupuncture, manipulated, and spinal decompression. Headaches have gotten worse with laying down, and when she lays on her side she can get worse headache on the opposite than she is lying down. Only thing they respond to is a THC oil, and she is on a lot of preventatives, and neurology keeps throwing meds at it. Sensitive to medications, so tired of this. 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 Headaches have made it hard to workout, which doesn't help her mental health, which makes her more anxious. Every time she works out, her headaches get worse. Doesn't control the pain with medication, so doesn't e njoy working out. Was doing classes, and used to do elliptical and weights. Doesn't do that with COVID anymore, because the gym she went to didn't have director of early childhood education. [place] best with working out, but priorto this headache, would get headache if working out to hard . Unsure if this was related to water intake, or overheated. Pain is 6/10, and if she takes the THC oil is can get to 0/10, but always comes back. Current Headache Frequency: constant Headache Duration: constant Patient Therapy Goals: Resume previous level of activity symptom free. Past Medical History: Patient has a current medication list which includes the following prescription(s): cholecalciferol, citalopram, emgality, hydroxyzine hcl, ibuprofen, prednisone, [id number], nurtec, sumatriptan succinate, and tizanidine. Patient has a past medical history of Migraine, unspecified, without mention of intractable migrainewithout mention of status migrainosus, Other external cause status, and Varicella. Recently Experienced (Red Flags): Increased headaches Risk Factors: Co-existing low back pain, Long history of neck pain, Anxiety/worrisome attitude and Psychosocial variables of high job demands Previous treatment: chiropractic treatment Benefited from previous treatment: not applicable Pain Details: Current pain intensity level: 6/10 Pain location: left side, right side, variable, front, forehead, eye, back or near neck, top of head Additional symptoms:fatigue Time of day worst pain: constant Pain quality: uncomfortable, aching, throbbing, cramping, pressure, sharp, shooting Aggravating Factors/Triggers: exertion, sleep, stress Relieving factors: None Stressors: homelife Stress Relievers: workingout Support System: family Sleep: 7 hours per night 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 Hands behind back within normal limits. Hands on opposite shoulders within normal Cervical Artery Screen: Hypertension: NO Recent Trauma: No Acute onset of pain (unlike any other): No Vertebral Artery Test: Negative Neurological Testing: Myotomes: Shoulder Elevation (C4): WNL Shoulder Abduction: (C5): WNL Elbow Flexion (C5, 6): WNL Elbow Extension (C5, 6): WNL Wrist Extension (C6): WNL Wrist Flexion (C7): WNL Finger Adduction (C8): WNL Finger Abduction (T1): WNL Cranial Nerve Screen: Refer to referring physician's examination CROM: Flexion: chin to chest, pulling Extension: 100%, stiffness Rotation left: 65 degrees Rotation right: 55 degrees Cervical Special Tests: Cervical flexion-rotation test left: Negative Cervical flexion-rotation test right: Positive Alar Ligament: Negative Transverse Ligament: Negative Cervical Strength: Supine neck flexion (tuck and lift) endurance test: 2 seconds Flexibility: Decreased flexibility in: Bilateral suboccipitals, cervical paraspinals, upper trapezius, levator scapula and sternocleidomastoid Joint mobility: Upper Cervical Hypomobile, Pain reproduction Lower Cervical Hypomobile CT junction Hypomobile, Pain reproduction Palpation: Tenderness to Bilateral suboccipitals, cervical paraspinals, upper trapezius, levator scapula and sternocleidomastoid TMJ Testing: Not Assessed Respiratory Testing/Mechanics: WNL Autonomic Nervous System Test: Did not perform No outcome data collected. Clinical Examination: Moderate Complexity: Addressed 3 elements from body structures and functions (see above), and/or functional limitations as noted below. Today's Intervention: Physical Therapy Evaluation was completed and the patient was educated on the condition, planned therapy intervention and expectations from treatment. Therapeutic exercise x 12 minutes: Patient was provided with a home exercise program. Patient was given verbal, visual, and tactile cues for exercise performance. Expressed optimism for patients her headaches, and that PT is the right place for them and that thiswill get better with time. Educated that PT has seen this before and that with some hard work patient will get back to their active lifestyle in no time. Encouraged patient to remain active. Seated SNAG R C1-C2 - tactile cues for technique, education on anatomy Discussed submaximal exercise and suggest wall squat. Quadruped cervical chin tuck 1x15 - cues for technique Manual therapy x 9 minutes: Supine R cervical C1-C2 contract relax MET - cues for pressure, post isometric relaxation Access Code: [email or web address] URL: [email or web address] Date: 03/19/2021 Prepared by: Willam Mcrae Exercises Wall Quarter Squat - 2-3 x daily - 5 x weekly - 1 sets - 3-5 reps - 60 seconds hold - slow and controlled speed Seated Assisted Cervical Rotation with Towel - 2-3 x daily - 5 x weekly - 1 sets - 10-20 reps - slowand controlled speed Quadruped Cervical Retraction - 2-3 x daily - 5 x weekly - 1 sets - 10-20 reps - slow and controlledspeed Timed Code Treatment Minutes: 21 Total Treatment Minutes: 45 ASSESSMENT Therapist Impression/Summary: Patient demonstrates cervical pain with headaches, limiting ability to participate in her active lifestyle. Signs and symptoms are consistent with tension, cervicogenic headaches. Patient tolerated manual therapy and exercise during today's session and demonstrated improved R cervical rotation. Patient would benefit from additional physical therapy for her to facilitate return to prior level of function and improve quality of life. PT Clinical Presentation: Moderate Complexity: Evolving Clinical Presentation with changing clinical characteristics Clinical Decision Making: Low Complexity Recommendations/Equipment: No additional recommendations at this time Significant Impairments: Pain, Joint hypomobility, Muscle tightness/decreased flexibility, Muscle imbalance, Muscle weakness/deconditioning, Myofascial restrictions, Central sensitization and autonomicnervous system dysregulation Functional Limitations:poor body mechanics, difficulty sleeping, difficulty dressing, difficulty with household tasks, difficulty meeting work demands and difficulty with sports/leisure activities Goals/Functional Outcomes: HEP/Independent Management: Demonstrate independence with HEP and self- management following each treatment session Activity Tolerance: Tolerate household/work activities, including being a mother, with 50% less paindisturbance within 8-12 weeks. Exercise: Increase exercise program to 2 days per week in order to decrease headache frequency/intensity in 6-10 weeks. Barriers to Goal Achievement or Learning: none Prognosis:good PLAN Planned Intervention/Education: ADL/Self Management, Aquatic therapy, Dry Needling, Education, Electrical Stimulation, Gait training, Heat/ice, Isokinetic/Performance Testing, Manual Therapy, Neuromuscular Re-education, Orthotics, TENS application/self treatment, Therapeutic Activities, Therapeutic Exercise, Vasopneumatic compression Frequency: 1 x week Duration: 90 days Discharge Plan: Patient will be discharged from therapy when goals are achieved or patient plateaus in progress. Informed Consent: The patient was educated on the condition, planned therapy intervention and expectations from treatment. Goals were a collaborative effort of the therapist and patient/caregiver. Risks, benefits and alternatives to treatment have been explained. Patient and/or family in agreement with the care plan. Plan for Next Treatment: loading as tolerated, manual therapy as needed The activity leader is completed by the therapist and the referring clinician's electronic signature certifies medical necessity for the plan above. K REPAIR LABORER documented in this encounter Plan of Treatment Scheduled Referrals Name Type Priority Associated Diagnoses Order S chedule Occupational Therapy Referral Routine Chronic migraine wit hout Ordered: 02/21/2021 aura without status migrainosus, not intractable Anxiety documented as of this encounter Visit Diagnoses Diagnosis Chronic migraine w/o aura w/o status salazar rainosus, not intractable - Primary Chronic migraine without aura, without m ention of intractable migraine without mention of status migrainosus documented in this encounter Care Teams Manager Commercial Real Estate Relationship Specialty Start Date End Date Sharon Mijares MD PCP - General 07/30/10 [address] [place] [address] documented as of this encounter
--- OUTSIDE RECORDS SUMMARY | 2022-01-23 23:48 | XMS_ITS | Encounter Summary ---
:1985 Author Organization [facility] Address [address] [address] Care Team Providers Name Role Phone Sharon Mijares MD Primary Care Provider [phone] Reason for Visit Reason Comments INGRID JHA Encounter Details Date Type Department Care Team Description 04/30/2016 Office Visit Erica Crowell Common w art (Primary Medicine/Pediatrics MD Dx) [address], [address] [place] [address] [place] [address] [address] [phone] Social History Tobacco Use Types Packs/Day Years Used Date Smoking Tobacco: Never Smokeless Tobacco: Never Alcohol Use Standard Drinks/Week Comments No 0 (1 standard drink = 0.6 oz pure alcoho l) not while Alcohol Habits Answer Date Recorded How often do you have a drink containing alcohol? Not asked How many drinks containing alcohol do you have on a Not aske d typical day when you are drinking? How often do you have six or more drinks on one Not asked occasion? Comment: not while 12/15/2015 Sex Assigned at Date Recorded Not on file documented as of this encounter Last Filed Vital Signs Vital Sign Reading Time Taken Comments Blood Pressure 108/72 04/30/2016 9:09 AM COSTUMING SUPERVISOR Pulse 76 04/30/2016 9:09 AM COSTUMING SUPERVISOR Temperature - - Respiratory Rate - - Oxygen Saturation - - Inhaled Oxygen Concentration - - Weight 72.3 kg (159 lb 4.8 oz) 04/30/2016 9:09 AM COSTUMING SUPERVISOR Height - - Body Mass Index 29.14 10/01/2015 9:25 AM CDT documented in this encounter Progress Notes Erica Good MD - 04/30/2016 9:05 AM CST Office Visit SUBJECTIVE: History of Present Illness: Noa is a 30 yo F who presents for wart removal. She initially noticed this wart approximately 7-8 months ago and she has had cryotherapy 3 times in that time span. She has been using pumice stone and topical kggg-gzu-fupmypd medications. She notes the wart has decreased in size considerably but remains. It is not painful but can be bothersome. She would like to have another round of cryotherapy today. Past Medical History: Reviewed and Updated Patient Problem List. Marked as reviewed Patient History Section Patient Active Problem List Diagnosis ??? Acquired absence of teeth ??? Headache ??? Back pain in ??? Painful sexual intercourse ??? Heartburn during Past Surgical History Procedure Laterality Date ??? Rosie teeth extraction Adverse Drug Reactions: Marked as Reviewed in Patient Allergy Section Allergies Allergen Reactions ??? Tioconazole PN: Redness Medications: Marked as Reviewed in Patient Medication Section. Current Outpatient Prescriptions Medication Sig Dispense Refill ??? cholecalciferol (VITAMIN D3) 1000 UNITS tablet Take 7,000 Units by mouth daily (every 24 hours). ??? cyclobenzaprine (FLEXERIL) 5 MG tablet Take 0.5-1 Tabs by mouth daily as needed for Muscle Spasms. 10 Tab 0 ??? Hwmebrff-Nlj-Wl-FA (/IRON OR) Take by mouth. No current facility-administered medications for this visit. Review of Systems: no pain, no other rashes or lesions, no redness or drainage OBJECTIVE: General: Comfortable, alert and interactive. NAD Vital Signs: Blood pressure 108/72, pulse 76, weight 159 lb 4.8 oz (00961 g), currently . Vitals reviewed in in Epic flow sheet section Extremities: No deformity or edema. 1.5 cm or on left heel, nonerythematous, non-tender, mild callussurrounding Neurologic: Normal Gait, sensation intact ASSESSMENT/ PLAN: Noa was seen today for wart, plantar. Common wart - Cryotherapy used to wart on left heel today. Patient tolerated procedure well. Instructed to continue to use pumice stone, okay to use mbim-nih-hnnrlte medications. Can continue cryotherapy treatments in 2-4 weeks if no resolution. If needing more than 6 consider possible referral to derm for removal. - DESTRUC BENIGN LESIONS; UP 14 Follow up: up 2-4 weeks for next treatment if wart remains Erica Good MD Internal Medicine and Pediatrics Gretchen [address] [phone] UMING SUPERVISOR documented in this encounter Plan of Treatment Not on filedocumented as of this encounter Visit Diagnoses Diagnosis Common wart - Primary Other specified viral warts documented in this encounter Care Teams Kitchen Steward Relationship Specialty Start Date End Date Sharon Mijares MD PCP - General 07/30/10 [address] [place] [address] documented as of this encounter
--- OUTSIDE RECORDS SUMMARY | 2022-01-23 23:48 | XMS_ITS | Encounter Summary ---
:1985 Author Organization [facility] Address [address] [place] [address] Care Team Providers Name Role Phone Sharon Mijares MD Primary Care Provider [phone] Reason for Visit Reason Comments HEAD INJURY HEADACHE Encounter Details Date Type Department Care Team Description 06/01/2020 Nurse Triage Careline Unknown, HEAD INJURY; HEADACHE [address] Physician [place], [place] [address] [phone] [place], [place] [id number] Social History Tobacco Use Types Packs/Day Years Used Date Smoking Tobacco: Never Smokeless Tobacco: Never Alcohol Use Standard Drinks/Week Comments No 0 (1 standard drink = 0.6 oz pure alcoho l) Sex Assigned at Date Recorded Not on file documented as of this encounter Nursing Notes Meera Pulido RN - 06/01/2020 12:58 PM CST Reason for Disposition ??? Can't remember what happened (amnesia) Protocols used: HEAD [id number] HING SORTER Meera Pulido RN - 06/01/2020 12:52 PM CST Verified patient identity: Yes Situation/Background (brief explanation of current symptoms/situation): The patient fell off a ski lift yesterday and does not remember falling, but she held on to the lift and it drops off. She fell and landed on her back. She also hit her head fairly hard. She was not wearing a helmet. She does not believe that she became unconscious but she also has amnesia about the event. She then skiied down the hill. She immediately had a headache. She felt unwell and nauseated all day. She also felt tired and tried not to fall asleep. She has been resting over the past day. She still has headache this morning. She does have a history of headaches and is treated for migraines. She is not sure if this feels like her usual migraines. She has extreme stiffness in back, neck, arms, and shoulders. Reviewed with patient pertinent medical history (as it related to the call): Yes Reviewed with patient pertinent medications (as they relate to call): Yes PLAN: I advised the patient to go to ED. She agreed to be seen but will start with primary clinic or UC, given cost of ED care. I did advise her to call back or be seen in ED right away with worsening symptoms. I offered continued CareLine assistance at any time 17/11. Meera Pulido RN 06/01/2020, 1:06 PM HING SORTER Freda Woods - 06/01/2020 12:50 PM CST Verified patient identity using three identifiers: Yes Caller's relationship to patient: Self At which care system or clinic is the patient normally seen? Other (Clinic Name)[facility] Symptoms Describe the reason for call/symptoms (include location and duration if applicable): Pt fell off of a ski lift yesterday and hit her head - fell about 6 ft. She has a bad headache, pain in neck and shoulders, very tired and feels foggy.. Plan:Caller transferred directly to CareLine nurse. HING SORTER documented in this encounter Plan of Treatment Not on filedocumented as of this encounter Visit Diagnoses Not on filedocumented in this encounter Care Teams Personal Investment Adviser Relationship Specialty Start Date End Date Sharon Mijares MD PCP - General 07/30/10 [address] [place] [address] documented as of this encounter
--- OUTSIDE RECORDS SUMMARY | 2022-01-23 23:48 | XMS_ITS | Encounter Summary ---
:1985 Author Organization [facility] Address [address], [place] [address] Care Team Providers Name Role Phone Sharon Mijares MD Primary Care Provider [phone] Reason for Referral Procedure/Equipment (Routine) - Closed Specialty Diagnoses / Procedures Referred By Contact Refer red To Contact Diagnoses care and examination of lactating mother MD Ainta Procedures Breast Pump [facility] [address] [place] [address] Referral ID Status Reason Start Date Expiration Date Visits Requ ested Visits Authorized [id number] Closed 06/07/2019 09/05/2020 1 1 Reason for Visit Reason Comments Breast Pump Encounter Details Date Type Department Care Team Description 06/07/2019 Notes/Orders [facility]is Becerra I care and Medical Equipment examination of [address] lactating mother [place], [place] (Primary Dx) [phone] Social History Tobacco Use Types Packs/Day Years Used Date Smoking Tobacco: Never Smokeless Tobacco: Never Alcohol Use Standard Drinks/Week Comments No 0 (1 standard drink = 0.6 oz pure alcoho l) Sex Assigned at Date Recorded Not on file documented as of this encounter Plan of Treatment Not on filedocumented as of this encounter Visit Diagnoses Diagnosis care and examination of lacta ting mother - Primary documented in this encounter Care Teams Refrigeration Specialist Relationship Specialty Start Date End Date Sharon Mijares MD PCP - General 07/30/10 [address] [place] [address] documented as of this encounter
--- OUTSIDE RECORDS SUMMARY | 2022-01-23 23:48 | XMS_ITS | Encounter Summary ---
:1985 Author Organization [facility] Address [address], [place] [address] Care Team Providers Name Role Phone Sharon Mijares MD Primary Care Provider [phone] Reason for Visit Reason Comments LAB RESULTS Encounter Details Date Type Department Care Team Description 06/26/2015 Telephone Tammy Brownlee MD LAB RESULTS Obstetrics/Gynecolog y [address] [facility] [address] [facility] [address] [place], [place] [address] [place] [address] [phone] (Wo rk) Social History Tobacco Use Types Packs/Day Years Used Date Smoking Tobacco: Never Assessed Sex Assigned at Date Recorded Not on file documented as of this encounter Nursing Notes Megan Eid - 06/26/2015 7:40 PM CST Patient calling, says she received her results from her wet prep on her MyChart and she wants to know if she needs to do anything about them. She was in L&D last night to see if her vaginal discharge was amniotic fluid, it wasn't. Had wet prep today at appointment, only abnormal results were many white blood cells, no sign of infection. Patient requesting president & ceo [employer] be paged. Spoke with Dr. Harika Covert and she said her results are normal. It is normal to have many white blood cells while . Relayed to patient, she verbalizes understanding. LE MACHINE OPERATOR documented in this encounter Plan of Treatment Not on filedocumented as of this encounter Visit Diagnoses Not on filedocumented in this encounter Care Teams Finger Grip Machine Operator Relationship Specialty Start Date End Date Sharon Mijares MD PCP - General 07/30/10 [address] [place] [address] documented as of this encounter
--- OUTSIDE RECORDS SUMMARY | 2022-01-23 23:48 | XMS_ITS | Encounter Summary ---
:1985 Author Organization [facility] Address [address] [address] Care Team Providers Name Role Phone Sharon Mijares MD Primary Care Provider [phone] Reason for Visit Reason Comments Travel Questions Encounter Details Date Type Department Care Team Description 07/09/2015 Telephone Ceci Delarosa Covert, Hariak Mcintyre MD Travel Questions Obstetrics/Gynecolog y [address] [place] [address] Dr Sharma [address] [place] [address] [place], [place] [phone] (Wo rk) [address] [phone] Social History Tobacco Use Types Packs/Day Years Used Date Smoking Tobacco: Never Assessed Sex Assigned at Date Recorded Not on file documented as of this encounter Nursing Notes Ally Murphy RN - 07/09/2015 12:26 PM CDT Patient informed of message below.. Maritza Murphy RN Covert, Harika Mcintyre MD - 07/09/2015 12:15 PM CDT That is going to be hard to answer given so close to due date -- If she starts to dilate her cervix - would not advise traveling on airline due to risk of Rupture ofmembranes or labor. Recommend we check her at her appt this week and if stable could discuss and consider writing a note. I am very sorry for her loss -- but we want to make sure she is ok before flying. Thanks T.Covert Ree De Dios RN - 07/09/2015 11:42 AM CDT General Information: Symptoms: Pt's EDC is 08/18/2015. Her grandma and the will be in [place] on 07/29. She is asking your opinion on her flying out a few days before the and back a few days after? She will be about 38 weeks then. The airline says they would need a note from her doctor okaying her to fly. Air Travel ?? Not recommended after 36 weeks. Overseas travel should be discussed with your provider. Emergencyair travel after 37 weeks may require additional written note from provider for the airline. Please verify with your individual airline if additional physician documentation is required for air travel;please attempt to request no less than 2 weeks in advance of your planned travel. Women with complicated pregnancies that may be exacerbated by flight conditions or require emergencycare should avoid air travel. Call Back if: any other questions or concerns. To provider. Status: Weeks gestation: 34. documented in this encounter Plan of Treatment Not on filedocumented as of this encounter Visit Diagnoses Not on filedocumented in this encounter Care Teams Funeral Pre Need Consultant Relationship Specialty Start Date End Date Sharon Mijares MD PCP - General 07/30/10 [address] [place] [address] documented as of this encounter
--- OUTSIDE RECORDS SUMMARY | 2022-01-23 23:48 | XMS_ITS | Encounter Summary ---
:1985 Author Organization [facility] Address [address], [place] [address] Care Team Providers Name Role Phone Sharon Mijares MD Primary Care Provider [phone] Reason for Visit Procedure/Equipment (Routine) - Incomplete Specialty Diagnoses / Procedures Referred By Contact Refer red To Contact Diagnoses Generalized abdominal pain John Guillen MD Procedures US Abd RUQ Organs [address] [place] [address] Referral ID Status Reason Start Date Expiration Date Visits V isits Requested Authorized [id number] Incomplete 10/17/2016 01/16/2018 1 1 Encounter Details Date Type Department Care Team Description 10/17/2016 Imaging [facility]eralized abdominal pain Center - Ultrasound [address] [place], [place] [address] Social History Tobacco Use Types Packs/Day Years Used Date Smoking Tobacco: Never Smokeless Tobacco: Never Alcohol Use Standard Drinks/Week Comments No 0 (1 standard drink = 0.6 oz pure alcoho l) Sex Assigned at Date Recorded Not on file documented as of this encounter Plan of Treatment Not on filedocumented as of this encounter Procedures Procedure Name Priority Date/Time Associated Diagnosis Comme nts US ABD RUQ ORGANS STAT 10/17/2016 6:44 PM Generalized abdom inal Results for this CDT pain procedure are i n the results section. documented in this encounter Results US Abd RUQ Organs (10/17/2016 6:44 PM CDT) Anatomical Region Laterality Modality Abdomen Ultrasound Specimen (Source) Anatomical Collection Method Collection Time Re ceived Time Location / / Volume Laterality 10/17/2016 6:33 PM CDT Impressions 10/17/2016 6:52 PM CDT IMPRESSION: 1. Subcentimeter gallstones along with a small amount of sludge within the gallbladder. No gallbladder wall thickening, pericholecystic fluid, positive sonographic Gonzalez's sign, or other sonographic evidence for acute cholecystitis. 2. No biliary dilatation. 3. The liver has an unremarkable echotex ture. Narrative 10/17/2016 6:52 PM CDT COMPARISON: ??None. FINDINGS: ?? Pancreas: Partially obscured by bowel ga s; visualized portions WNL. Liver: Contour appears unremarkable. Par enchyma appears unremarkable. Gallbladder: There are echogenic shadowi ng gallstones within the gallbladder. No gallbladder wall thickening or pericholecystic fluid. A few low-level echoes are seen within the gallbladder compatible with sludge.. Sonographic Gonzalez's Sign: No. CBD: 0.4 cm. Right Kidney: Measures 10.4 x 4.0 x 4.3 cm. Appears unremarkable. Ascites: None. Procedure Note Merritt Sandoval MD - 10/17/2016For matting of this note might be different from the original. COMPARISON: None. FINDINGS: Pancreas: Partially obscured by bowel ga s; visualized portions WNL. Liver: Contour appears unremarkable. Par enchyma appears unremarkable. Gallbladder: There are echogenic shadowi ng gallstones within the gallbladder. No gallbladder wall thickening or pericholecystic fluid. A few low-level echoes are seen within the gallbladder compatible with sludge.. Sonographic Gonzalez's Sign: No. CBD: 0.4 cm. Right Kidney: Measures 10.4 x 4.0 x 4.3 cm. Appears unremarkable. Ascites: None. IMPRESSION IMPRESSION: 1. Subcentimeter gallstones along with a small amount of sludge within the gallbladder. No gallbladder wall thickening, pericholecystic fluid, positive sonographic Gonzalez's sign, or other sonographic evidence for acute cholecystitis. 2. No biliary dilatation. 3. The liver has an unremarkable echotex ture. John Guillen MD [facility] documented in this encounter Visit Diagnoses Diagnosis Generalized abdominal pain Abdominal pain, generalized documented in this encounter Care Teams Instrument Checker Relationship Specialty Start Date End Date Sharon Mijares MD PCP - General 07/30/10 [address] [place] [address] documented as of this encounter
--- OUTSIDE RECORDS SUMMARY | 2022-01-23 23:48 | XMS_ITS | Encounter Summary ---
:1985 Author Organization [facility] Address [address] [place] [address] Care Team Providers Name Role Phone Sharon Mijares MD Primary Care Provider [phone] Reason for Visit Reason Comments INGRID JHA Encounter Details Date Type Department Care Team Description 05/26/[address] [facility] Meera Santos Plan tar wart (Primary Specialty Center Med PA-C Dx) Peds [address] [facility] [address] [facility] [address] [place], [place] [address] [phone] Social History Tobacco Use Types Packs/Day Years Used Date Smoking Tobacco: Never Smokeless Tobacco: Never Alcohol Use Standard Drinks/Week Comments No 0 (1 standard drink = 0.6 oz pure alcoho l) Sex Assigned at Date Recorded Not on file documented as of this encounter Last Filed Vital Signs Vital Sign Reading Time Taken Comments Blood Pressure 104/70 05/26/2016 9:10 AM INTERNATIONAL ACCOUNT EXECUTIVE Pulse 75 05/26/2016 9:10 AM INTERNATIONAL ACCOUNT EXECUTIVE Temperature - - Respiratory Rate - - Oxygen Saturation - - Inhaled Oxygen Concentration - - Weight 70.8 kg (156 lb) 05/26/2016 9:10 AM INTERNATIONAL ACCOUNT EXECUTIVE Height - - Body Mass Index 28.53 10/01/2015 9:25 AM CDT documented in this encounter Progress Notes Meera Santos PA-C - 05/26/2016 9:02 AM CST Over the benefit [facility] NOTE NAME: Noa Franco DATE: 05/26/2016 AGE: 30 y.o. : 1985 CHIEF COMPLAINT: wart HPI: Noa is here today for retreatment of the wart on her left heel. She has had this for almosta year. It has been treated with liquid nitrogen 5 times since then, but she has never had consistent treatments every 2 weeks. The last treatment was on 04/30/16. She tolerated this well. Noa has been using a pumice stone and OTC paint-on treatment in between her liquid nitrogen treatments. She feels the wart is likely almost gone. It does not hurt at all. She has no other concerns while she is here today. PAST MEDICAL HISTORY: Past Medical History Diagnosis Date ??? 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 Migraine, unspecified, without mention of intractable migraine without mention of status migrainosus ??? Varicella PROBLEM LIST: Patient Active Problem List Diagnosis ??? Acquired absence of teeth ??? Headache ??? Back pain in ??? Painful sexual intercourse ??? Heartburn during ??? Common wart ??? Plantar wart MEDICATIONS: Outpatient Prescriptions Marked as Taking for the 05/26/16 encounter (Office Visit) with Joshua Santos PA-C Medication Sig Dispense Refill ??? cholecalciferol (VITAMIN D3) 1000 UNITS tablet Take 7,000 Units by mouth daily (every 24 hours). ??? Srkvjjgr-Udf-Pv-FA (/IRON OR) Take by mouth. ALLERGIES: Allergies Allergen Reactions ??? Tioconazole PN: Redness PHYSICAL EXAM: VITALS: BP 104/70 mmHg Pulse 75 Wt 156 lb (75977 g) GENERAL: This is a 30 y.o. year old female who is alert and oriented in no acute distress. SKIN: Warm and dry. Examination of the skin on the lateral left heel reveals a 3 mm oval-shaped verrucous raised lesion with out surrounding erythema. ASSESSMENT AND PLAN: Noa was seen today for wart, plantar. Diagnoses and all orders for this visit: Plantar wart - DESTRUCT BENIGN SKIN LESIONS UP TO 14 [id number] - She gave verbal consent to have her words treated with liquid nitrogen for cryotherapy. The wart was first wipe down using alcohol and then was pared down using a scalpel. It was treated in a freeze-thaw pattern of 3 cycles using liquid nitrogen. She tolerated this well. A bandage was applied. She was encouraged to return in 2 weeks for retreatment. It is likely that this will require at least another 1-2 treatments. Since she has not been consistently treating the wart every 2 weeks, it does not appear as though she has met her limit for cryotherapy treatments. She understands and agrees and will make an appointment for follow-up in 2 weeks. RNATIONAL ACCOUNT EXECUTIVE documented in this encounter Plan of Treatment Not on filedocumented as of this encounter Visit Diagnoses Diagnosis Plantar wart - Primary documented in this encounter Care Teams Merchandise Appraiser Relationship Specialty Start Date End Date Sharon Mijares MD PCP - General 07/30/10 [address] [place] [address] documented as of this encounter
--- OUTSIDE RECORDS SUMMARY | 2022-01-23 23:48 | XMS_ITS | Encounter Summary ---
:1985 Author Organization [facility] Address [address], [place] [address] Care Team Providers Name Role Phone Sharon Mijares MD Primary Care Provider [phone] Encounter Details Date Type Department Care Team Description 01/29/2016 Immunization [facility] Need for prophylactic [address] [facility] ccination and [address] [place] [address] influenza (Primary Dx) [phone] Social History Tobacco Use Types Packs/Day Years [...] as of this encounter Visit Diagnoses Diagnosis Need for prophylactic vaccination and in oculation against influenza - Primary documented in this encounter Care Teams Project Engineer Chemicals Relationship Specialty Start Date End Date Sharon Mijares MD PCP - General 07/30/10 [address] [place] [address] (work) documented as of this encounter
--- OUTSIDE RECORDS SUMMARY | 2022-01-23 23:48 | XMS_ITS | Encounter Summary ---
:1985 Author Organization [facility] Address [address], [place] [address] Care Team Providers Name Role Phone Sharon Mijares MD Primary Care Provider [phone] Reason for Visit Reason Comments Concerns Encounter Details Date Type Department Care Team Description 06/22/2015 Nurse Triage [place] Covert, Harika S, Concerns Obstetrics/Gynecolog y [address] [place] [address], [address] [place] [address] [address] [place] [address] [phone] (Wo rk) Social History Tobacco Use Types Packs/Day Years Used Date Smoking Tobacco: Never Assessed Sex Assigned at Date Recorded Not on file documented as of this encounter Nursing Notes Ree De Dios RN - 06/25/2015 2:05 PM CST Pt calling back. Continues to have lower abd pain and now having some back pain. Baby moving. No bleeding. Scheduled with Ketan tomorrow to assess. Advised to call back if increased pain, bleeding, decreased FM. Pt expressed understanding and agreed with plan. L FRONT DESK ATTENDANT Ree De Dios RN - 06/22/2015 5:04 PM CST OB Minor Discomforts of IMPRESSION: Symptoms associated with : Pt is 32 weeks . c/o lower abd pain and groin pain since last night. Pretty constant pain, does get worse with movement. Rates pain a 5-6 out of10. No bleeding. Baby moving. Symptom: Round ligament pain. Round ligament pain is short, sharp pain in the groin, or lower quadrant of the abdomen. It may last a few seconds to several minutes, and can be on one or both sides. It is caused by stretching of ligaments that hold the uterus midline in the body and usually occurs at 18-24 weeks, and is worse with subsequent pregnancies. Round ligament pain is not harmful to mom or the baby, but can be quite uncomfortable. The pain can be most pronounced with coughing, sneezing, rising up from sitting or rolling over in bed. Start the day with some good stretching exercises to minimize the aches and pains of . Avoid sudden movements-twisting, turning. Move carefully and slowly. If spasms occur, lean toward the pain or put pressure on the painful areas. OK to try acetaminophen and warm baths. Call back if: associated with bleeding, decreased movement, fever, UTI symptoms or persistent contractions (always keep labor in the back of your mind). Call back if: symptoms persist or worsen or any other questions or concerns. Patient/Caller agrees with plan and denies additional questions. Status: Weeks gestation: 32. L FRONT DESK ATTENDANT documented in this encounter Plan of Treatment Not on filedocumented as of this encounter Visit Diagnoses Not on filedocumented in this encounter Care Teams Bull Ladle Tender Relationship Specialty Start Date End Date Sharon Mijares MD PCP - General 07/30/10 [address] [place] [address] documented as of this encounter
--- OUTSIDE RECORDS SUMMARY | 2022-01-23 23:48 | XMS_ITS | Encounter Summary ---
:1985 Author Organization [facility] Address [address], [place] [address] Care Team Providers Name Role Phone Sharon Mijares MD Primary Care Provider [phone] Reason for Visit Reason Comments Medication Questions Encounter Details Date Type Department Care Team Description 12/06/2015 Telephone Ceci Delarosa Covert, Harika Mcintyre Medicrg n Questions Obstetrics/Gynecolog y [address] [place] [address], [address] [place] [address] [address] [place] [address] [phone] (Wo rk) Social History Tobacco Use Types Packs/Day Years Used Date Smoking Tobacco: Never Assessed Sex Assigned at Date Recorded Not on file documented as of this encounter Nursing Notes Nery Aragon RN - 12/06/2015 3:57 PM CDT Patient notified. Patient verbalized understanding of instructions/ plan. ROENTEROLOGY MANAGER ArturotHarika MD - 12/06/2015 3:46 PM CDT There is not a lot of data. Some if the med does get into the breast milk -- I would choose some caffeine and Ibuprofen first if able. Would only use the med if headache intractable. Thanks T.Covert Therese Lord RN - 12/06/2015 1:31 PM CDT Reason for Call: Medication When Next Steps: Document further recommendations and route to appropriate person or pool. Caller IS expecting a call back from Care Team. Additional Information: Patient was prescribed Fioricet while for headaches. Baby is 4 months old now and mom is breast feeding. She is wondering if this medication is safe to take while ? Please advise. documented in this encounter Plan of Treatment Not on filedocumented as of this encounter Visit Diagnoses Not on filedocumented in this encounter Care Teams Compensation And Benefits Analyst Relationship Specialty Start Date End Date Sharon Mijares MD PCP - General 07/30/10 [address] [place] [address] documented as of this encounter
--- OUTSIDE RECORDS SUMMARY | 2022-01-23 23:48 | XMS_ITS | Encounter Summary ---
:1985 Author Organization [facility] Address [address], [place] [address] Care Team Providers Name Role Phone Sharon Miajres MD Primary Care Provider [phone] Reason for Visit Reason Comments Routine Visit Encounter Details Date Type Department Care Team Description 06/21/2015 Routine Harika Lucas Routine Obstetrics/Gynecolog MD Miguelina Visit y [address] [address] [address] [place] [id number] Social History Tobacco Use Types Packs/Day Years Used Date Smoking Tobacco: Never Assessed Sex Assigned at Date Recorded Not on file documented as of this encounter Last Filed Vital Signs Vital Sign Reading Time Taken Comments Blood Pressure 118/77 06/21/2015 8:54 AM PADDLE DYEING MACHINE OPERATOR Pulse - - Temperature - - Respiratory Rate - - Oxygen Saturation - - Inhaled Oxygen Concentration - - Weight 79.7 kg (175 lb 9.6 oz) 06/21/2015 8:54 AM PADDLE DYEING MACHINE OPERATOR Height 157.5 cm (5' 2) 06/21/2015 8:54 AM PADDLE DYEING MACHINE OPERATOR Body Mass Index 32.12 06/21/2015 8:54 AM PADDLE DYEING MACHINE OPERATOR documented in this encounter Progress Notes Covert, Harika Mcintyre MD - 06/21/2015 11:32 AM CST OB Follow-up Visit S: Patient is here for routine care. Reports good movement, no uterine contractions. No vaginal bleeding or loss of fluid. Complaints/concerns: some back pain. Occ headaches till - Fioricet helps. Acid Reflux. O: See flowsheet A: 29 y.o. female at 31w5d weeks gestation. Patient Active Problem List Diagnosis ??? Teeth Loss Extraction ??? Headache ??? Encounter for supervision of normal first in first trimester ??? Exposure to genital herpes ??? Back pain in ??? Painful sexual intercourse P: Return to clinic in 2 week(s). Fioricet refilled - headache precautions reviewed. Hydration, Massage. Discussed OTC medications for Acid Reflux. Dietary changes, etc Acyclovir Rx sent to start at 36 weeks Harika Mcintyre Covert 9:27 AM LE DYEING MACHINE OPERATOR documented in this encounter Plan of Treatment Not on filedocumented as of this encounter Visit Diagnoses Diagnosis Back pain in - Primary Other specified complication of pregnanc y, unspecified as to episode of care Exposure to genital herpes Contact with or exposure to other viral diseases Encounter for supervision of normal firs t in first trimester Supervision of normal first Headache in , third trimester Heartburn during , third trimes ter documented in this encounter Care Teams Plasterer Journeyman Relationship Specialty Start Date End Date Sharon Mijares MD PCP - General 07/30/10 [address] [place] [address] documented as of this encounter
--- OUTSIDE RECORDS SUMMARY | 2022-01-23 23:48 | XMS_ITS | Encounter Summary ---
:1985 Author Organization [employer] Address [address] [address] Care Team Providers Name Role Phone Sharon Mijares MD Primary Care Provider [phone] Reason for Visit Reason Comments Pain Encounter Details Date Type Department Care Team Description 08/13/2015 [facility] Mike Cummings PA-C dehiscence [address] [facility] [address] [place], [place] [address] [place], [place] [phone] [address] Social History Tobacco Use Types Packs/Day Years Used Date Smoking Tobacco: Never Assessed Sex Assigned at Date Recorded Not on file documented as of this encounter Last Filed Vital Signs Vital Sign Reading Time Taken Comments Blood Pressure 122/86 08/13/2015 8:03 PM CDT Pulse 82 08/13/2015 8:03 PM CDT Temperature 36.7 ??C (98.1 ??F) 08/13/2015 8:03 PM CDT Respiratory Rate 14 08/13/2015 8:03 PM CDT Oxygen Saturation - - Inhaled Oxygen Concentration - - Weight - - Height - - Body Mass Index - - documented in this encounter Medications at Time of Discharge Medication Sig Dispensed Refills Start Date End Date cholecalciferol (VITAMIN Take 1,000 Units 0 06/21 D3) 1000 UNITS tablet by mouth Daily. Take by mouth. 0 04/26/2015 Zcurcdbb-Opo-Dg-FA (/IRON OR) acyclovir (AKA ZOVIRAX) Take 1 tablet by 60 tablet 1 201508/14/2015 400 MG tablet mouth 2 times daily. xhfomrbtwh-ppkndpdzcvgqc-i Take 1 tablet by 30 tablet 4 09/21/2015 affeine (FIORICET) mouth every 4 50-325-40 MG tablet hours as needed for Headaches. cephALEXin (KEFLEX) 500 MG Take 1 capsule by 15 capsule 1 09/21/2015 capsule mouth 3 times daily. famotidine (AKA PEPCID) 10 Take 10 mg by 0 201508/14/2015 MG tablet mouth 2 times daily. taking 2 tablets once a day documented as of this encounter ED Notes Mike Ramos PA-C - 08/13/2015 8:25 PM CDT ED Provider Notes signed by Mike Ramos PA-C at 08/14/15 1223 Author: Mike Ramos PA-C Service: (none) Author Type: Physician Shoe Laster Filed: 08/14/15 1223 Note Time: 08/14/15 1017 Status: Signed [employer]vp [employer]: Mike Ramos PA-C (Physician Shoe Laster) NAME: NOA FRANCO MR#: [id number] CSN: [id number] AUTHENTICATING CLINICIAN: Mike Ramos PA-C CONFIRM #: [id number] LOC: 2320 URGENT CARE PROGRESS NOTE DATE OF VISIT: 08/13/2015 : 1985 CHIEF COMPLAINT: Vaginal bleeding. SUBJECTIVE: Cooperative 29-year-old presented to the Urgent Care Center 08/13/2015. Noa was told to come here from BATCH RECORDS CLERK. She had a baby on Thursday, had a second-degree tear. She had an episiotomy. She has been bleeding. She has been told that she could bleed up to 2 to 3 weeks. She just was not sure how to care for this area. She has also had a foul smell since yesterday. No fevers, no chills. No body aches. OBJECTIVE: GENERAL: Cooperative 29-year-old. Well developed, well nourished. ABDOMEN: Soft, flat, nontender. GYNECOLOGIC: On vaginal exam, she did have some dried blood. She did have an episiotomy with a little bit of dehiscence but she had good hemostasis at this time. She did not have any vaginal discharge.We did not do a speculum exam as she is very sensitive to the area. ASSESSMENT: Vaginal odor with bloody discharge secondary to episiotomy dehiscence. PLAN: She will do a Sitz bath. She will contact BATCH RECORDS CLERK if symptoms persist. I will place her on oral Keflex 500 mg 1 p.o. t.i.d. for 5 days 1 additional refill. She will clean the area as previously prescribed. She verbalizes understanding of treatment plan. IAS:MEDQ C: CONFIRM #: [id number] documented in this encounter Miscellaneous Notes Medication History - Soren Arevalo MD - 08/13/2015 8:22 PM CDT INPATIENT MEDS Encounter Date: 08/13/15 cephALEXin (KEFLEX) 500 mg capsule Start Date:08/13/15, End Date:09/21/15, Frequency:3 TIMES DAILY *No Administrations Recorded documented in this encounter Plan of Treatment Not on filedocumented as of this encounter Visit Diagnoses Diagnosis Episiotomy dehiscence Disruption of perineal wound, unspecifie d as to episode of care in Triage Assessment Note - Sonam Ruiz RN - 08/13/2015 8:02 PM CDT Pt had a vaginal delivery on Thursday at the [facility]. Pt said she had a second degree tear and an episiotomy. Today pt has episiotomy discomfort and last night pt noticed an foul odor to thevaginal discharge. MAN/PILE DRIVING AND ERECTION documented in this encounter Care Teams Shellfish Meat Separator Operator Relationship Specialty Start Date End Date Sharon Mijares MD PCP - General 07/30/10 [address] [place] [address] documented as of this encounter
--- OUTSIDE RECORDS SUMMARY | 2022-01-23 23:48 | XMS_ITS | Encounter Summary ---
:1985 Author Organization [facility] Address [address], [place] [address] Care Team Providers Name Role Phone Sharon Mijares MD Primary Care Provider Encounter Details Date Type Department Care Team Description 08/09/2015 Imaging [place] Ultrasou nd Abnormal heart rate [address] [facility], [address] [place], [place] [phone] Social History Tobacco Use Types Packs/Day Years Used Date Smoking Tobacco: Never Assessed Sex Assigned at Date Recorded Not on file documented as of this encounter Plan of Treatment Not on filedocumented as of this encounter Procedures Procedure Name Priority Date/Time Associated Diagnosis Comme nts US OB BPP / GLO Routine 08/09/2015 11:21 AM Abnormal hea rt Results for this SINGLE CDT rate procedure are i n the results section. documented in this encounter Results US OB BPP / GLO Single (08/09/2015 11:21 AM CDT) Anatomical Region Laterality Modality Pelvis Other Study GA Study Date Study JAMIE Working JAMIE (Source) W eight (Method) Result Name Value Comments FHR 127.00 bpm BPP 8.00 GLO 6.66 cm Specimen (Source) Anatomical Location Collection Method / Collectio n Time Received Time / Laterality Volume Narrative 08/09/2015 11:24 AM CDT TECHNIQUE: Limited ultrasound examinatio n was performed for evaluation of amniotic fIuid index (GLO) and biophysical profile (BPP). ? FINDINGS: Type of Gestation: Sanchez Presentation: ??Vertex Cardiac Rate: ??127 BPM Placental Position: ??Anterior. 4-quadrant GLO: ??6.7 cm. Q1: ??1.5 cm. Q2: ??1.9 cm. Q3: ??2.0 cm. Q4: ??1.3 cm. Other Findings: None. BPP breathing: ??2 (One episode of fet al breathing for 30 seconds) Gross movements: ??2 (3 body, limb , discrete or separate movements) tone: ??2 (One episode of extensio n/flexion of limbs, head or trunk) Amniotic fluid single deepest pocket: ?? 2 (> 2 cm (>36 weeks), > 3 cm (< 36 weeks)) TOTAL SCORE: 8 Procedure Note Jeffry Dumas MD - 10/14/2015Format ting of this note might be different from the original. TECHNIQUE: Limited ultrasound examinatio n was performed for evaluation of amniotic fIuid index (GLO) and biophysical profile (BPP). FINDINGS: Type of Gestation: Sanchez Presentation: Vertex Cardiac Rate: 127 BPM Placental Position: Anterior. 4-quadrant GLO: 6.7 cm. Q1: 1.5 cm. Q2: 1.9 cm. Q3: 2.0 cm. Q4: 1.3 cm. Other Findings: None. BPP breathin (One episode of breathing for 30 seconds) Gross movements: 2 (3 body, limb, discrete or separate movements) tone: 2 (One episode of extension/ flexion of limbs, head or trunk) Amniotic fluid single deepest pocket: 2 (> 2 cm (>36 weeks), > 3 cm (< 36 weeks)) TOTAL SCORE: 8 Harika S Covert MD WOLF documented in this encounter Visit Diagnoses Diagnosis Abnormal heart rate documented in this encounter Care Teams Central Office Mechanic Relationship Specialty Start Date End Date Sharon Mijares MD PCP - General 07/30/10 [address] [place] [address] documented as of this encounter
--- OUTSIDE RECORDS SUMMARY | 2022-01-23 23:48 | XMS_ITS | Encounter Summary ---
:1985 Author Organization [facility] Address [address], [place] [address] Care Team Providers Name Role Phone Sharon Mijares MD Primary Care Provider [phone] Encounter Details Date Type Department Care Team Description 06/07/2019 Correspondence Mikal Page ed EQUIPMENT CLOTH BLEACHING RANGE TENDER [facility] [address] [place], [place] [address] [address] [place], [place] [phone] [address] (Work) [phone] Social History Tobacco Use Types Packs/Day Years [...] on filedocumented in this encounter Care Teams Mainframe Developer Relationship Specialty Start Date End Date Sharon Mijares MD PCP - General 07/30/10 [address] [place] [address] documented as of this encounter
--- OUTSIDE RECORDS SUMMARY | 2022-01-23 23:48 | XMS_ITS | Encounter Summary ---
:1985 Author Organization [facility] Address [address], [place] [address] Care Team Providers Name Role Phone Sharon Mijares MD Primary Care Provider [phone] Reason for Visit Reason Comments Concerns Encounter Details Date Type Department Care Team Description 08/09/2015 Nurse Triage Harika Lucas, Concerns Obstetrics/Gynecolog y [address] [place] [address], [address] [place] [address] [address] [place] [address] [phone] (Wo rk) Social History Tobacco Use Types Packs/Day Years Used Date Smoking Tobacco: Never Assessed Sex Assigned at Date Recorded Not on file documented as of this encounter Nursing Notes Nilam Argueta RN - 08/09/2015 6:59 PM CDT Protocol: - RUPTURE OF [id number] Affirmative: Rupture of membranes, questions about Disposition of Home Care suggested. Pt. calling, concerned about amniotic fluid level at 6.7 - pt. was seen by Dr. Crockett today. Advised pt. to follow plan of care from OV today with Dr. Crockett. documented in this encounter Plan of Treatment Not on filedocumented as of this encounter Visit Diagnoses Not on filedocumented in this encounter Care Teams Column Precaster Relationship Specialty Start Date End Date Sharon Mijares MD PCP - General 07/30/10 [address] [place] [address] documented as of this encounter
--- OUTSIDE RECORDS SUMMARY | 2022-01-23 23:48 | XMS_ITS | Encounter Summary ---
:1985 Author Organization [facility] Address [address], [place] [address] Care Team Providers Name Role Phone Sharon Mijares MD Primary Care Provider Reason for Visit Reason Comments Follow-up Encounter Details Date Type Department Care Team Description 10/01/2015 Visit aHrika Lucas Postpart um Follow-up Obstetrics/Gynecolog MD Miguelina y [address] [address] [address] [place] [phone] Social History Tobacco Use Types Packs/Day Years Used Date Smoking Tobacco: Never Assessed Sex Assigned at Date Recorded Not on file documented as of this encounter Last Filed Vital Signs Vital Sign Reading Time Taken Comments Blood Pressure 107/78 10/01/2015 9:25 AM CDT Pulse 85 10/01/2015 9:25 AM CDT Temperature - - Respiratory Rate - - Oxygen Saturation - - Inhaled Oxygen Concentration - - Weight 74.3 kg (163 lb 12.8 oz) 10/01/2015 9:25 AM CDT Height 157.5 cm (5' 2) 10/01/2015 9:25 AM CDT Body Mass Index 29.96 10/01/2015 9:25 AM CDT documented in this encounter Progress Notes CovertHarika MD - 10/01/2015 10:34 AM CDT .. VISIT Chief Complaint: visit, discuss plan for contraception Date of Delivery: 08/10/15 Type of Delivery: normal spontaneous vaginal delivery Place of Delivery: [facility] Sex:female Weight: 5 lb 12 oz Pt ?: SUBJECTIVE: 30 y.o. female presents for exam. She is 6 weeks after normal spontaneous vaginal delivery. Her and delivery were complicated by Low GLO at end of . . She is feeling very well and reports ambulating, tolerating a regular diet, voiding without difficulty and having regular bowel movements. Her plan for contraception is: condoms and NFP - does not tolerated hormones well. She is planning another in the future. Review of Systems: A complete Review of Systems was negative except for as listed above/below Past OB Hx: Obstetric History T1 TAB0 SAB1 E0 M0 L1 # Outcome Date GA Lbr Shorty/2nd Weight Sex Delivery Anes PTL Lv 2 Term 08/10/15 38w6d 5 lb 12 oz (2.608 kg) F Vag-Spont EPI N Y Name: Sue Lloyd Apgar1: 8 Apgar5: 8 1 SAB 09/04/14 4w0d Obstetric Comments FOB has 5year old son, lives multimedia producer with them Past Medical Hx: Past Medical History Diagnosis Date ??? 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 Migraine, unspecified, without mention of intractable migraine without mention of status migrainosus ??? Varicella Past Surgical Hx: Past Surgical History Procedure Laterality Date ??? [place] tooth extraction Social Hx: History Social History ??? Marital Status: Spouse Name: Zachary ??? Number of Children: 1 ??? 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 Smoking status: Never Smoker ??? Smokeless tobacco: Never Used ??? Alcohol Use: No Comment: not while ??? Drug Use: No ??? Sexual Activity: Partners: Male Other Topics Concern ??? Bike Helmet Yes ??? [place] Yes ??? Exercise Yes ??? Guns In Home Yes ??? Seat Belt Yes ??? Special Diet No ??? Weight Concern No Social History Narrative Medications: Outpatient Prescriptions Prior to Visit Medication Sig Dispense Refill ??? all purpose nipple ointment (APNO) Apply sparingly after each feeding so that areola shines 30.6g prn ??? cholecalciferol (VITAMIN D3) 1,000 unit tablet Take 7,000 Units by mouth daily (every 24 hours). ??? no.98-bjbm-KU-dha 27mg iron- 800 mcg-250 mg Cap Take by mouth. ??? pyridoxine (VITAMIN B6) 25 mg tablet Take 1 tablet by mouth daily (every 24 hours) for 30 days. 60 tablet 0 No facility-administered medications prior to visit. Adverse Drug Reactions: Allergies Allergen Reactions ??? Monistat 1 (Tioconazole) [Tioconazole] Redness OBJECTIVE: Vital Signs: LMP Vitals Item Reading ??? BP 107/78 ??? Pulse 85 ??? Ht 5' 2 (1.575 m) ??? Wt 163 lb 12.8 oz (74.299 kg) ??? LMP 11/11/2014 [place] Depression Screening Score: Pt is well-appearing, in no acute distress Her affect is appropriate. She appears well Benefits Coordinator exam: EXTERNAL GENITALIA : normal, well-healed, without lesions or masses, VAGINA : normal, well-healed, physiologic discharge, without lesions, CERVIX : normal, well-healed, without lesions, UTERUS : normal size, well involuted, firm, non-tender, ADNEXA : no masses palpable and nontender Abd exam: benign non-tender, without masses or organomegaly palpable Breast exam: Engorged, otherwise without masses bilaterally. The axillae are without masses. Extremities are without calf pain or edema bilaterally ASSESSMENT: 30 y.o. female, now 6 weeks . PLAN: 1. Contraception: condoms and NFP. Discussed IUD options -- Pamplets given 2. Immunizations As below given 3. Follow up annual exam or sooner prn 10/01/2015 10:28 AM documented in this encounter Plan of Treatment Not on filedocumented as of this encounter Visit Diagnoses Diagnosis Encounter for routine follow- up - Primary Routine follow-up documented in this encounter Care Teams Veterinary Practice Manager Relationship Specialty Start Date End Date Sharon Mijares MD PCP - General 07/30/10 [address] [place] [address] documented as of this encounter
--- OUTSIDE RECORDS SUMMARY | 2022-01-23 23:48 | XMS_ITS | Encounter Summary ---
:1985 Author Organization [facility] Address [address] [address] Care Team Providers Name Role Phone Sharon Mijares MD Primary Care Provider [phone] Reason for Visit Reason Comments Headache Encounter Details Date Type Department Care Team Description 03/28/2016 Office Visit [facility] Quinn Moran Ch nonintractable [facility] Med I, WELT SLASHER, CN P headache, unspecified Peds [address] [place] headache type (Primary [address] Dx) [place], [place] [address] [phone] Social History Tobacco Use Types Packs/Day Years [...] Sign Reading Time Taken Comments Blood Pressure 121/83 03/28/2016 8:56 AM LAND LEASES AND RENTALS MANAGER Pulse 77 03/28/2016 8:56 AM LAND LEASES AND RENTALS MANAGER Temperature - - Respiratory Rate - - Oxygen Saturation - - Inhaled Oxygen Concentration - - Weight 72.1 kg (159 lb) 03/28/2016 8:56 AM LAND LEASES AND RENTALS MANAGER Height - - Body Mass Index 29.08 10/01/2015 9:25 AM CDT documented in this encounter Patient Instructions Patient InstructionsQuinn Moran I, WELT SLASHER, FELLER SEAM OPERATOR - 03/28/2016 9:33 AM LAND LEASES AND RENTALS MANAGER Tension Headache: Care Instructions Your Care Instructions Most headaches are tension headaches. These headaches tend to happen again, especially if you are under stress. A tension headache may cause pain or a feeling of pressure all over your head. You probably can't pinpoint the center of the pain. If you keep getting tension headaches, the best thing you can do to limit them is to find out what is causing them and then make changes in those areas. Follow-up care is a rand part of your treatment and safety. Be sure to make and go to all appointments, and call your doctor if you are having problems. It???s also a good idea to know your test resultsand keep a list of the medicines you take. How can you care for yourself at home? ?? Rest in a quiet, dark room with a cool cloth on your forehead until your headache is gone. Close your eyes, and try to relax or go to sleep. Don't watch TV or read. Avoid using the computer. ?? Use a warm, moist towel or a heating pad set on low to relax tight shoulder and neck muscles. ?? Have someone gently massage your neck and shoulders. ?? Take pain medicines exactly as directed. ?? If the doctor gave you a prescription medicine for pain, take it as prescribed. ?? If you are not taking a prescription pain medicine, ask your doctor if you can take an cogf-rxb-afufmmn medicine. ?? Be careful not to take pain medicine more often than the instructions allow, because you may get worse or more frequent headaches when the medicine wears off. ?? If you get another tension headache, stop what you are doing and sit quietly for a moment. Close your eyes and breathe slowly. Try to relax your head and neck muscles. ?? Do not ignore new symptoms that occur with a headache, such as fever, weakness or numbness, vision changes, or confusion. These may be signs of a more serious problem. To help prevent headaches ?? Keep a headache diary so you can figure out what triggers your headaches. Avoiding triggers may help you prevent headaches. Record when each headache began, how long it lasted, and what the pain waslike (throbbing, aching, stabbing, or dull). List anything that may have triggered the headache, such as being physically or emotionally stressed or being anxious or depressed. Other possible triggers are hunger, anger, fatigue, poor posture, and muscle strain. ?? Find healthy ways to deal with stress. Headaches are most common during or right after stressful times. Take time to relax before and after you do something that has caused a headache in the past. ?? Exercise daily to relieve stress. Relaxation exercises may help reduce tension. ?? Get plenty of sleep. ?? Eat regularly and well. Long periods without food can trigger a headache. ?? Treat yourself to a massage. Some people find that massages are very helpful in relieving tension. ?? Try to keep your muscles relaxed by keeping good posture. Check your jaw, face, neck, and shoulder muscles for tension, and try to relax them. When sitting at a desk, change positions often, and stretch for 30 seconds each hour. ?? Reduce eyestrain from computers by blinking frequently and looking away from the computer screen every so often. Make sure you have proper eyewear and that your monitor is set up properly, about an arm???s length away. When should you call for help? Call 911 anytime you think you may need emergency care. For example, call if: ?? You have signs of a stroke. These may include: ?? Sudden numbness, paralysis, or weakness in your face, arm, or leg, especially on only one side ofyour body. ?? Sudden vision changes. ?? Sudden trouble speaking. ?? Sudden confusion or trouble understanding simple statements. ?? Sudden problems with walking or balance. ?? A sudden, severe headache that is different from past headaches. Call your doctor now or seek immediate medical care if: ?? You have new or worse nausea and vomiting. ?? You have a new or higher fever. ?? Your headache gets much worse. Watch closely for changes in your health, and be sure to contact your doctor if: ?? You are not getting better after 2 days (48 hours). Where can you learn more? 1. Go to [facility] or [employer]. 2. Enter C544 in the search box. Current as of: June 15, 2015 Content Version: 109 ?? 2060-9940 [employer] LEASES AND RENTALS MANAGER documented in this encounter Progress Notes Quinn Moran APRN, CNP - 03/28/2016 10:05 AM CST Clinic Progress Note SUBJECTIVE: 30 y.o. female presents to the clinic for evaluation of headaches. She has been dealing with headaches since high school. She will typically experience a dull, ache in the back of the head. She denies any vision changes or neurological changes. She has been on several medications in the past. She is currently 7 months and breast-feeding. She was given Fioricet by her ObGyn while and she is continued to use that medication on an intermittent basis in her and while breast-feeding. She has noticed that her 7-month-old seems increasingly fussy after taking the medication.She will typically experience a headache 2-5 times a month and these can last up to a day. She has been using ibuprofen and Tylenol as needed but this regimen is not as effective. She does have neck tension and has used heating pad and ice in the past with minimal relief. Denies any fevers or chills. No current upper respiratory symptoms. Review of Systems: Negative except for those items listed in the HPI. OBJECTIVE: Vital Signs: BP 121/83 mmHg Pulse 77 Wt 159 lb (53988 g) General: 30 y.o. female in no distress. Neck: Supple, without goiter or significant adenopathy. Tense through the trapezius muscles. No spinal tenderness. Full range of motion. Chest: Normal respiratory effort. Lungs are clear with good breath sounds bilaterally. No wheezes orrales. Heart: Regular rate. No murmur or gallop. Neuro: Cranial nerves II through XII grossly intact. No focal deficits. Psych: Alert, oriented. Mood stable. Jugdement and insight appropriate. Assessment: ICD-10-CM 1. Chronic nonintractable headache, unspecified headache type R51 cyclobenzaprine (FLEXERIL) 5 MG tablet Plan: We had a lengthy discussion reviewing multiple medications to help with current headaches. We also discussed medications to help prevent headaches. I recommended that we stop using Fioricet and try something that is not controlled substance. We reviewed medicines like Imitrex, propranolol, and muscle relaxer. Since she has neck tension, her headaches could be on the tension side. Therefore we will consider a small trial of Flexeril muscle relaxer2.5 mg to 5 mg once daily, preferably at bedtime to help with headache control and relief. We reviewed the side effects. She will continue to monitor her 7-month-old for any changes in behavior. Handout was given with list of information about headaches. Follow up if not improving or any concerns. Seek Urgent care if new complications arise. LEASES AND RENTALS MANAGER documented in this encounter Plan of Treatment Not on filedocumented as of this encounter Visit Diagnoses Diagnosis Chronic nonintractable headache, unspeci fied headache type - Primary documented in this encounter Care Teams Metal Forger'S Assistant Relationship Specialty Start Date End Date Sharon Mijares MD PCP - General 07/30/10 [address] [place] [address] documented as of this encounter
--- OUTSIDE RECORDS SUMMARY | 2022-01-23 23:48 | XMS_ITS | Encounter Summary ---
:1985 Author Organization [facility] Address [address] [place] [address] Care Team Providers Name Role Phone Sharon Mijares MD Primary Care Provider [phone] Reason for Visit Reason Comments Routine Visit Encounter Details Date Type Department Care Team Description 07/05/2015 Routine [place] Ketan Rees Routin e Obstetrics/Gynecolo QUIQUE SOARES Visit gy [address], [address] [phone] Social History Tobacco Use Types Packs/Day Years Used Date Smoking Tobacco: Never Assessed Sex Assigned at Date Recorded Not on file documented as of this encounter Last Filed Vital Signs Vital Sign Reading Time Taken Comments Blood Pressure 118/85 07/05/2015 8:54 AM MINE SHIFTER Pulse 105 07/05/2015 8:54 AM MINE SHIFTER Temperature - - Respiratory Rate - - Oxygen Saturation - - Inhaled Oxygen Concentration - - Weight 80.2 kg (176 lb 12.8 oz) 07/05/2015 8:54 AM MINE SHIFTER Height 157.5 cm (5' 2) 07/05/2015 8:54 AM MINE SHIFTER Body Mass Index 32.34 07/05/2015 8:54 AM MINE SHIFTER documented in this encounter Progress Notes Cabrera, Ketan Kinney APRN, CNM - 07/05/2015 9:18 AM CST Subjective: 29 y.o. is being seen today for her routine visit. She is doing well, no change or issues with her discharge. Pepcid not helping as much, takes it daily, but having heartburn during the night, can increase her dosing. Active FM. GBS at next visit. Objective: see flowsheet Assessment: at 33.5 weeks Heartburn Plan: -Follow-up: 2 weeks, prn SHIFTER documented in this encounter Plan of Treatment Not on filedocumented as of this encounter Visit Diagnoses Diagnosis Encounter for supervision of normal firs t in third trimester - Primary Supervision of normal first Heartburn during , third trimes ter documented in this encounter Care Teams Education And Training Coordinator Relationship Specialty Start Date End Date Sharon Mijares MD PCP - General 07/30/10 [address] [place] [address] documented as of this encounter
--- OUTSIDE RECORDS SUMMARY | 2022-01-23 23:48 | XMS_ITS | Encounter Summary ---
:1985 Author Organization [facility] Address [address], [place] [address] Care Team Providers Name Role Phone Sharon Mijares MD Primary Care Provider [phone] Reason for Visit Reason Onset Date Comments MASTITIS 08/28/2016 Patient Calling Back 08/28/2016 Encounter Details Date Type Department Care Team Description 08/28/2016 Telephone Clayton Younger Sharon Mijares IS; Patient Medicine MD Anil Calling Back [address] [facility] [address] [place] [address] [place] [address] (Wo rk) Social History Tobacco Use Types Packs/Day Years Used Date Smoking Tobacco: Never Smokeless Tobacco: Never Alcohol Use Standard Drinks/Week Comments No 0 (1 standard drink = 0.6 oz pure alcoho l) Sex Assigned at Date Recorded Not on file documented as of this encounter Nursing Notes Zandra Noel RN - 08/28/2016 9:59 AM CDT Called and reviewed message from provider with the patient. Patient verbalized understanding and agrees with recommendations and has no further questions. Covert, Harika Mcintyre MD - 08/28/2016 9:57 AM CDT Rx for Dicloxacillin sent to pharmacy - however - if not getting any better - we should see her. Thanks\ T.covert Zandra Noel RN - 08/28/2016 9:39 AM CDT Reason for Call: Clinician input needed on symptom based concern. and Medication Request. Next Steps: Document further recommendations and route to appropriate person or pool. Caller IS expecting a call back from Care Team. Additional Information: Patient called with concerns of mastitis, confirmed symptoms with patient from note below. States she would normally come in but does not have insurance at this time. Please advise if antibiotic can besent in for patient or if she need appointment. Thank you! Post 10/01/15 Shantell Dodge RN - 08/28/2016 8:48 AM CDT Reason for Call: Medication Request. Next Steps: Document further recommendations and route to appropriate person or pool. Caller IS expecting a call back from Care Team. Additional Information: Routing to OBG. Pt has no consistent PCP. Pt feels she has mastitis, sx's started around 2 am this morning. . States her breast is red/warm, tender, feels hard areas on top. She is nursing baby on both breasts, this ga help some. She has usedheat and massage also a little helpful. Pt said last time she was able to treat at home, this time she has a low grade fever, not checked, and chills. The pain is much worse than it was last time. Feels unusually tired and achy. Pt has problem with insurance. They are between coverage at this time. Without coverage for 30 days.She is hoping to get abx over the phone. Pharmacy verified. Kaylyn Crow - 08/28/2016 8:42 AM CDT Can leave a message if possible Therese Lord RN - 08/28/2016 8:19 AM CDT Attempted to call patient, unable to leave message. Caitlin Cui - 08/28/2016 7:05 AM CDT Patient would like to talk about mastitis. documented in this encounter Plan of Treatment Not on filedocumented as of this encounter Visit Diagnoses Not on filedocumented in this encounter Care Teams Electronic Masking System Operator Relationship Specialty Start Date End Date Sharon Mijares MD PCP - General 07/30/10 [address] [place] [address] documented as of this encounter
--- OUTSIDE RECORDS SUMMARY | 2022-01-23 23:48 | XMS_ITS | Encounter Summary ---
:1985 Author Organization [employer] Address [address], [place] [address] Care Team Providers Name Role Phone Sharon Mijares MD Primary Care Provider [phone] Reason for Visit Reason Comments Concerns Encounter Details Date Type Department Care Team Description 06/15/2015 Nurse Triage Ceci Delarosa Covert, Harika S, Concerns Obstetrics/Gynecolog y [address] [facility], [address] [place] [address] [address] [place] [address] [phone] (Wo rk) Social History Tobacco Use Types Packs/Day Years Used Date Smoking Tobacco: Never Assessed Sex Assigned at Date Recorded Not on file documented as of this encounter Nursing Notes Ree De Dios RN - 06/15/2015 8:57 AM CST OB Minor Discomforts of IMPRESSION: Symptoms associated with : Had HAs first trimester and was given Fioricet to take. 2nd trimester had DIMAS a few times and had to take some Fioricet. Now has had a headache since 4 am. Has taken Fioricet x 2 and still has a headache. Symptom: Headaches. Get adequate rest- fatigue can aggravate a headache. Eat small, frequent meals. Carry high complex carbohydrates and high protein snacks. Seek peace and quiet- keep volume down on television, telephones and radio. Avoid noisy congested offices & department stores. Don???t get stuffy. Stay in well ventilated areas. Avoid smoke-filled areas. Apply hot & cold compresses to the aching area, alternating 30 seconds of each for a total of 10minutes, 4 times a day. Call back if: symptoms persist or worsen or any other questions or concerns. Patient/Caller agrees with plan and denies additional questions. Status: EDC: Estimated Date of Delivery: 08/18/15. GRATION JUDGE documented in this encounter Plan of Treatment Not on filedocumented as of this encounter Visit Diagnoses Not on filedocumented in this encounter Care Teams Manager Ethics Relationship Specialty Start Date End Date Sharon Mijares MD PCP - General 07/30/10 [address] [place] [address] documented as of this encounter
--- OUTSIDE RECORDS SUMMARY | 2022-01-23 23:48 | XMS_ITS | Encounter Summary ---
:1985 Author Organization [facility] Address [address], [place] [address] Care Team Providers Name Role Phone Sharon Mijares MD Primary Care Provider [phone] Reason for Visit Reason Comments Skin Check Encounter Details Date Type Department Care Team Description 09/13/2015 Office Visit [facility] Nena Benavides (Primary Dx); Specialty Center Anshu Kinney PA-C Skin change; Peds [address] Plantar wart [address] [place], [place] [address] [phone] Social History Tobacco Use Types Packs/Day Years Used Date Smoking Tobacco: Never Assessed Sex Assigned at Date Recorded Not on file documented as of this encounter Last Filed Vital Signs Vital Sign Reading Time Taken Comments Blood Pressure 112/65 09/13/2015 9:00 AM CDT Pulse 72 09/13/2015 9:00 AM CDT Temperature - - Respiratory Rate - - Oxygen Saturation - - Inhaled Oxygen Concentration - - Weight 74.4 kg (164 lb) 09/13/2015 9:00 AM CDT Height - - Body Mass Index 30 08/14/2015 11:11 AM CDT documented in this encounter Progress Notes Nena Benavides PA-C - 09/13/2015 10:11 AM CDT Clinic Visit Note Reason for visit: Chief Complaint Patient presents with ??? Skin Check HPI: This is a 30 y.o. female who comes in today with concerns of the following: Multiple mole checkand wart. Pt is 4 weeks post and states she has never had a mole check before and would like this. Has two sisters that have had multiple moles removed but non of them have ever come back with abnormal cells. Mom and Dad have no history of skin cancer. Pt describes her skin as very fair. Pt hasnot specifically noted any change in any of the moles, has not specifically had any pain or discomfort but states she just does not make it a priority to watch these so she is not even sure where they all are. Left foot has had an area of thickened skin on the lateral heel. This has been present for 2-3 years. Is sometime painful with prolonged walking. Has never tried any treatment at home. Lesion does continue to get bigger. Medication: Outpatient Prescriptions Prior to Visit Medication Sig ??? all purpose nipple ointment (APNO) Apply sparingly after each feeding so that areola shines ??? spagkeymcr-ygctlznymhbim-nxnttxas (FIORICET, ESGIC) 50 mg-325 mg-40 mg per tablet Take 1 tablet by mouth every 4 hours as needed for Headaches. ??? cephALEXin (KEFLEX) 500 mg capsule Take 1 capsule by mouth 3 times daily. ??? cholecalciferol (VITAMIN D3) 1,000 unit tablet Take 7,000 Units by mouth daily (every 24 hours). ??? no.87-pmck-FJ-dha 27mg iron- 800 mcg-250 mg Cap Take by mouth. ??? pyridoxine (VITAMIN B6) 25 mg tablet Take 1 tablet by mouth daily (every 24 hours) for 30 days. No facility-administered medications prior to visit. ROS: A comprehensive review of systems was negative except for items mentioned in HPI. FH/SH/PMH: Reviewed see EPIC Patient Active Problem List Diagnosis ??? Teeth Loss Extraction ??? Headache ??? Encounter for supervision of normal first in first trimester ??? Exposure to genital herpes ??? Back pain in ??? Painful sexual intercourse ??? Heartburn during Physical Exam: BP 112/65 mmHg Pulse 72 Wt 164 lb (37646 g) LMP 11/11/2014 General appearance: alert, cooperative, no distress, appears stated age Head: Normocephalic, without obvious abnormality, atraumatic Eyes: conjunctivae/corneas clear. PERRL, EOM's intact. Nose: no discharge Lungs: no increased respiratory rate, no accessory muscles used in breathing Skin: Multiple dark, etienne and skin colored nevi on the body: Face - Dark irregular colored nevi on the left inferior chin. There is hair in this nevi, approximately 0.5 cm in diameter. -Dark nevi approximately 0.3 cm in diameter on right upper cheek -Skin colored nevi scattered on lateral sides of face. Chest - 5 - 6 nevi on chest. 3-4 in between breasts, 2 on upper chest. One nevi on right inner breast appears inflamed. Back - 4 - 5 scattered nevi on the back. One nevi in the lower center back is elevated approximately0.4 cm. Does not appear irritated or inflamed. Arms - Multiple skin colored nevi on bilateral upper arms. Legs - few scattered freckles and nevi. Enlarged blue nevi on right inner knee. Left foot - plantars wart present on the lateral heel. Approximately 1 cm in diameter, elevated 0.4 cm. Assessment/Plan: This is a 30 y.o. female in clinic for mole check and plantar wart. 1. Mole check: discussed with pt the only mole that appears concerning at this time in the one on her right inner breast. Despite this pt does have many moles that are very elevated and do catch and bleed at times. Recommended consultation with dermatology to have all moles evaluated and possibly getting multiple removed. 2. Plantar wart on left foot: -The viral etiology and natural history has been discussed. - Various treatment methods, side effects and failure rates have been discussed. - A choice of liquid nitrogen was made, and the expected blistering or scabbing reaction explained. - Liquid nitrogen was applied to 1 wart(s) for three 10 second freeze/thaw cycles. - The patient will return at 2-4 week intervals for retreatments as needed. Nena Benavides PA-C Internal Medicine-Pediatrics This note was created by a voice recognition dictation system. documented in this encounter Plan of Treatment Not on filedocumented as of this encounter Visit Diagnoses Diagnosis Nevus - Primary Benign neoplasm of skin, site unspecifie d Skin change Other symptoms involving skin and integu mentary tissues Plantar wart documented in this encounter Care Teams Telegraphic Typewriter Repairer Relationship Specialty Start Date End Date Sharon Mijares MD PCP - General 07/30/10 [address] [place] [address] documented as of this encounter
--- OUTSIDE RECORDS SUMMARY | 2022-01-23 23:48 | XMS_ITS | Encounter Summary ---
:1985 Author Organization [facility] Address [address] [place] [address] Care Team Providers Name Role Phone Sharon Mijares MD Primary Care Provider [phone] Reason for Visit Reason Comments Routine Visit Encounter Details Date Type Department Care Team Description 06/07/2015 Routine [place] Ketan Rees Routin e Obstetrics/Gynecolo QUIQUE SOARES Visit gy [address], [address] [phone] Social History Tobacco Use Types Packs/Day Years Used Date Smoking Tobacco: Never Assessed Sex Assigned at Date Recorded Not on file documented as of this encounter Last Filed Vital Signs Vital Sign Reading Time Taken Comments Blood Pressure 119/68 06/07/2015 8:50 AM MAIL DELIVERY SUPERVISOR Pulse 90 06/07/2015 8:50 AM MAIL DELIVERY SUPERVISOR Temperature - - Respiratory Rate - - Oxygen Saturation - - Inhaled Oxygen Concentration - - Weight 79.1 kg (174 lb 6.4 oz) 06/07/2015 8:50 AM MAIL DELIVERY SUPERVISOR Height 157.5 cm (5' 2) 06/07/2015 8:50 AM MAIL DELIVERY SUPERVISOR Body Mass Index 31.9 06/07/2015 8:50 AM MAIL DELIVERY SUPERVISOR documented in this encounter Progress Notes Cabrera, Ketan Kinney APRN, CNM - 06/07/2015 9:09 AM CST Subjective: 29 y.o. is being seen today for her routine visit. She is doing well. She is signedup for [facility], will work on pre-registration and picking peds. Active FM. She denies LOF or VB. GCT [id number], but passed GTT. Objective: see flowsheet Assessment: at 29.5 weeks Plan: -28-week labs reviewed, elevated GCT, but passed GTT. -Follow-up: 2 weeks, prn DELIVERY SUPERVISOR documented in this encounter Plan of Treatment Not on filedocumented as of this encounter Visit Diagnoses Diagnosis Encounter for supervision of normal firs t in third trimester - Primary Supervision of normal first documented in this encounter Care Teams Pin Drafter Operator Relationship Specialty Start Date End Date Sharon Mijares MD PCP - General 07/30/10 [address] [place] [address] documented as of this encounter
--- OUTSIDE RECORDS SUMMARY | 2022-01-23 23:48 | XMS_ITS | Encounter Summary ---
:1985 Author Organization [employer] [facility] Address [address], [place] [address] Care Team Providers Name Role Phone Sharon Mijares MD Primary Care Provider [phone] Reason for Referral Specialty Diagnoses / Procedures Referred By Contact Refer red To Contact Nena Benavides PA-C [address] [place], [place] [address] Referral ID Status Reason Start Date Expiration Date Visits Requ ested Visits Authorized Reason for Visit Reason Comments SKIN LESION Encounter Details Date Type Department Care Team Description 09/21/2015 Initial Consult Gretchen Esteban & Cindy Cazares, Dermato fibroma of right lower extremity (Primary Dx); [facility] - Multiple pigmented nevi; Dermatology [address] Screening for malignant neoplasm of skin [address] [place] [address] Social History Tobacco Use Types Packs/Day Years Used Date Smoking Tobacco: Never Assessed Sex Assigned at Date Recorded Not on file documented as of this encounter Progress Notes Cindy Cazares MD - 09/21/2015 10:20 AM CDT DERMATOLOGY PATIENT VISIT NOTE Chief Complaint: Skin Cancer Screening Examination. Referring Provider: Nena Benavides PA-C HPI: Noa Franco is a 30 y.o.female who desires a total body skin cancer screening examinationtoday of her many moles. She has noticed none actively changing. She is 5 weeks . Her history is reviewed as follows: Changing Moles: No Blistering Sunburns: one, grew up on the [facility] History of Dysplastic Nevi: No Tanning Bed Use: rare Sunscreen Use: Yes FHx: The patient has no family history of skin cancer or melanoma. ROS: The patient denies any other concerning skin lesions, changing moles, or rashes. Otherwise feeling well at baseline state of health. PMH: Reviewed in [facility]. Medications: Reviewed in [facility]. Allergies: Reviewed In Epic. Physical Examination: GENERAL:The patient is alert & oriented x3 in NAD, pleasant and cooperative, displaying a Britt Skin Type 3. CUTANEOUS: A total body skin examination was performed including the scalp, face, ears, neck, chest,abdomen, back, buttocks, perianal area, external genitalia, and all four extremities including the hands and feet. Palpation and visual inspection of the nails was done. Mucous membranes were not examined. Assessment & Plan: 1. Screening for Malignant Neoplasms of the Skin/Benign Nevi: There are no suspicious lesions for skin cancer or melanoma on examination today. There are multiple benign appearing < 1 cm regular solid to targetoid light to dark brown papulesrandomly scattered on the trunk and extremities. There is a benign firm dermatofibroma on the right inner knee (she states has been present unchangedfor years) Plan: Continue self surveillance. Patient Education: re ABCDE's, need for regular self examination and sun protection with sunscreen use and protective clothing. An appointment should be made if any of the moles change in color, shape, size, thickness, itch, or bleed. RTC p.r.n. Cindy Cazares MD (Primary Provider) This ibm bpm developer was created by voice recognition software and may contain typographical errors. documented in this encounter Plan of Treatment Scheduled Referrals Name Type Priority Associated Diagnoses Order S chedule Dermatology Referral Routine Dermatofibroma of right Orde red: Consult-Adult/Peds lower extremity 2015, Expires: 2015 documented as of this encounter Visit Diagnoses Diagnosis Dermatofibroma of right lower extremity - Primary Multiple pigmented nevi Benign neoplasm of skin, site unspecifie d Screening for malignant neoplasm of skin Screening for malignant neoplasm of the skin documented in this encounter Care Teams Flame Cutter Relationship Specialty Start Date End Date Sharon Mijares MD PCP - General 07/30/10 [address] [place] [address] documented as of this encounter
--- OUTSIDE RECORDS SUMMARY | 2022-01-23 23:48 | XMS_ITS | Encounter Summary ---
:1985 Author Organization [facility] Address [address], [place] [address] Care Team Providers Name Role Phone Sharon Mijares MD Primary Care Provider [phone] Reason for Visit Reason Comments Follow-up Encounter Details Date Type Department Care Team Description 08/13/2015 Nurse Triage [facility] Sharon Mijares Follow-up Specialty Center Anshu Ma MD Peds [address] [address] [address] [place], [place] [phone] (Wo rk) Social History Tobacco Use Types Packs/Day Years Used Date Smoking Tobacco: Never Assessed Sex Assigned at Date Recorded Not on file documented as of this encounter Nursing Notes Angelita Olson RN - 08/13/2015 7:00 PM CDT Protocol: - EPISIOTOMY [id number] Affirmative: Foul smelling discharge from vagina (i.e., lochia) or episiotomy site Disposition of See Physician Within 4 Hours (Or PCP Triage) suggested. Pt calling about foul smelling discharge that began yesterday. Pt gave 1 week ago and has had normal lochia until yesterday. Pt had an episiotomy done. No fever present and no change in bleeding.Advised to be seen within 4 hours. Pt stated that she will go to . No further questions or concerns noted. documented in this encounter Plan of Treatment Not on filedocumented as of this encounter Visit Diagnoses Not on filedocumented in this encounter Care Teams Dry Drug Worker Relationship Specialty Start Date End Date Sharon Mijares MD PCP - General 07/30/10 [address] [place] [address] documented as of this encounter
--- OUTSIDE RECORDS SUMMARY | 2022-01-23 23:48 | XMS_ITS | Encounter Summary ---
:1985 Author Organization [employer] Address [address] [place] [address] Care Team Providers Name Role Phone Sharon Mijares MD Primary Care Provider [phone] Reason for Referral Consult/Transfer Care (Routine) - Incomplete Specialty Diagnoses / Procedures Referred By Contact Refer red To Contact Diagnoses Chronic migraine without aura without status migrainosus, not intractable Anxiety ([facility]) Josey Stringer, RESISTOR COATER, MANAGER OF COMMUNITY RELATIONS [address] [place], [place] [address] Referral ID Status Reason Start Date Expiration Date Visits V isits Requested Authorized [id number] Incomplete 02/21/2021 05/23/2022 1 1 Scheduling Instructions Your provider has recommended an appoint ment with Behavioral Health. You may call [phone] to schedule your appointmen t. This recommended service/s may not be covered by your health plan (health insu tavon). To find out your specific benefit coverage, please call the number on your insurance card.?? Please note that in order to maintain access for all patients, [facility] does have a late cancellation policy. In order to avoid being restrict ed from scheduling future appointments in Behavioral Health you will need to cance l at least 24 hours in advance. We request you that you arrive 30 minutes before yo ur first appointment to complete paperwork. Therapies (Routine) - New Request Specialty Diagnoses / Procedures Referred By Contact Refer red To Contact Diagnoses Chronic migraine without aura without status migrainosus, not intractable Anxiety ([facility]) Josey Stringer APRN, CNP [address] [place], [place] [address] Referral ID Status Reason Start Date Expiration Date Visits V isits Requested Authorized [id number] New Request 02/21/2021 02/21/2022 1 1 Scheduling Instructions Your provider has recommended an appoint ment with [facility] Occupational Therapy. You may call [phone] to schedule yo ur appointment. We suggest you call your health insurance company about your cove rage and benefits for this appointment. Encounter Details Date Type Department Care Team Description 02/21/2021 Office Visit [facility] Josey Stringer, Chronic migraine without aur a without status migrainosus, not intractable (Primary Dx); [address] [place] [address] [address] [facility] [phone] [place] [address] (Wo rk) Social History Tobacco Use Types [...] Pulse 92 02/21/2021 2:02 PM CDT Temperature - - Respiratory Rate 20 02/21/2021 2:02 PM CDT Oxygen Saturation - - Inhaled Oxygen Concentration - - Weight - - Height - - Body Mass Index - - documented in this encounter Patient Instructions Patient InstructionsJosey Stringer APRN, CNP - 02/21/2021 2:00 PM CDT 1. For headache rescue: Tizanidine 1-2 tabs nightly for 10 nights -do not take with hydroxyzine 2. Continue Emgality 3. Start DHE nasal spray/ Migranal 1 spray each nostril at onset of typical headache. (tip head forward and following sprays plug nose-breath thru mouth and count to 30 to decrease possible side effect of unpleasant taste). Repeat in 15-30 minutes. May repeat in 2 or more hours. Max 1 bottle per day. Max 9 days per month. May use 12-15 days per month for 1-2 months while prevention getting established then return to 9 days per month maximum. -this cannot be used within 24 hours of rizatriptan 4. Occupational therapy for headaches #[phone] 5. Refer you to psychiatry for anxiety management #[phone] 6. I would suggest reintroducing gentle exercises 7. Talk with your and family about making space for you to heal and get better 8. Follow up on April 11, 2021 at 12:30 Please call the nurse line at #[phone] with any new/changing symptoms, questions or concerns. documented in this encounter Progress Notes Josey Stringer APRN, CNP - 02/21/2021 2:00 PM CDT Neurology Consultation Date of Visit: 02/21/2021 Date of : 1985 Reason for Visit: headache Noa Franco is a 35 y.o. female with a history of anxiety, migraine who presents for evaluation of headache. RECORDS REVIEW: Noa is self-referred for evaluation of migraine. Of note, she was seen in the primary care clinic 02/20/2021 with concerns of ongoing migraine and worsening anxiety. She endorsed difficulty sleeping and increased tearfulness. It was recommended that she initiate Celexa for anxiety and utilize hydr oxyzine/lorazepam for significant breakthrough symptoms. CURRENT SITUATION: Description of headaches: Onset: childhood; very frequent since January 12 (essentially constant) Location/radiation of pain: variable; most often in temporal region and neck Unilateral pain?: no Duration: constant since January 12 Multiple times per day: no Aura/prodrome: no Severity/character of pain: sharp and squeezing Accompanying symptoms:Light sensitivity, Noise sensitivity, Nausea or no appetite, I vomit, I have difficulty thinking, neck stifness; No focal neurological symptoms such as visual loss/diplopia, sensory changes, weakness, problem with speech. Autonomic symptoms: no Precipitating factors: stress; They are not induced with Valsalva/cough/sneeze, positional changes, or with exertion. Relation to menstrual cycle: yes Rapidity of onset:gradual; They are not of sudden/thunderclap onset. Worst time of day: no clear pattern Frequency of pain: 30 days per month, with 100% being moderate to severe. Current use of medications to treat headaches: Abortive meds: nurtec, ativan Overuse: no Prophylactic meds: Emgality (started last week) Additional Relevant History: History of head/neck trauma or surgery: no History of endocrine, autoimmune or hypercoagulable disorders: no Family h/o headache/neurologic problems: sister with headaches Use of meds that might worsen DIMAS's: no Substance use: alcohol: no; illicit drugs: no; tobacco: no; caffeine: 0-1 cup per day Sleep: Patient sleeps 6-8 hours/night on average. 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 planning/contraceptive: no plans for additional children; using condoms and plans to get vasectomy Prior headache treatments tried: IV Depakote with mild benefit ONB with mild/temporary relief Hydroxyzine associated with sleepiness Zofran Lorazepam Nurtec reduced severity Fioricet IN sumatriptan PO sumatriptan ineffective Rizatriptan partially effective Topiramate (25mgQHS with significant fatigue) Excedrin Gabapentin without benefit Propranolol (hypotension and bradycardia) Oxycodone manager respiratory care Acupuncture Excedrin Radiographic imaging: Brain MRI (W) 02/07/2021: ???Impression: No acute intracranial process. MRV (ANW) 02/07/2021: ???IMPRESSION: No dural venous sinus thrombosis is identified.?? Review of Systems: Pertinent positives as summarized above in history of present illness. Remainder of complete review of systems is negative. Past Medical History: Diagnosis Date ??? Migraine, unspecified, without mention of intractable migraine without mention of status migrainosus ??? 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 Varicella Past Surgical History: Procedure Laterality Date ??? WISDOM TEETH EXTRACTION Allergies Allergen Reactions ??? Tioconazole PN: Redness Outpatient Encounter Medications as of 02/21/2021 Medication Sig Dispense Refill ??? cholecalciferol (VITAMIN D3) 1000 UNITS tablet Take 1,000 Units by mouth Daily. ??? citalopram (CELEXA) 10 MG tablet Take 10 mg by mouth. ??? dihydroergotamine mesylate (MIGRANAL) 4 MG/ML nasal solution Migranal NS- 1 spray each nostril at onset of typical headache. (tip head forward and following sprays plug nose-breath thru mouth and count to 30 to decrease possible side effect of unpleasant taste). Repeat in 15-30 minutes. May repeatin 2 or more hours. Max 1 bottle per day. Max 9 days per month. May use 12-15 days per month for 1-2months while prevention getting established then return to 9 days per month maximum. 8 mL 11 ??? galcanezumab-gnlm (EMGALITY) 120 MG/ML injection ??? hydrOXYzine HCl (ATARAX) 25 MG tablet Take 25 mg by mouth every 6 hours as needed. ??? ibuprofen (MOTRIN) 600 MG tablet 600 mg. ??? LORazepam (ATIVAN) 1 MG tablet Take 1 mg by mouth two times daily as needed. ??? Nailvcua-Pve-On-FA (/IRON OR) Take by mouth. ??? Rimegepant Sulfate (NURTEC) 75 MG TBDP ??? tiZANidine (ZANAFLEX) 2 MG tablet Take 1-2 tabs by mouth at night for 10 nights. 20 Tablet 1 ??? [DISCONTINUED] cyclobenzaprine (FLEXERIL) 5 MG tablet Take 0.5-1 Tabs by mouth daily as needed for Muscle Spasms. (Patient not taking: Reported on 10/17/2016) 10 Tab 0 ??? [DISCONTINUED] dihydroergotamine mesylate (MIGRANAL) 4 MG/ML nasal solution Migranal NS- 1 sprayeach nostril at onset of typical headache. (tip head forward and following sprays plug nose-breath thru mouth and count to 30 to decrease possible side effect of unpleasant taste). Repeat in 15-30 minutes. May repeat in 2 or more hours. Max 1 bottle per day. Max 9 days per month. May use 12-15 days per month for 1-2 months while prevention getting established then return to 9 days per month maximum. 8 mL 11 ??? [DISCONTINUED] tiZANidine (ZANAFLEX) 2 MG tablet Take 1-2 tabs by mouth at night for 10 nights. 20 Tablet 1 No facility-administered encounter medications on file as of 02/21/2021. Family History Problem Relation Age of Onset ??? Hypertension Father ??? Osteoporosis Maternal Grandmother Social History Tobacco Use ??? Smoking status: Never Smoker ??? Smokeless tobacco: Never Used Vaping Use ??? Vaping Use: Never used Substance Use Topics ??? Alcohol use: No ??? Drug use: No PHYSICAL EXAM: Vital signs: Blood pressure 117/86, pulse 92, resp. rate 20, currently . Estimated bodymass index is 28.72 kg/m?? as calculated from the following: Height as of 10/01/15: 5' 2 (1.575 m). Weight as of 07/07/16: 157 lb (71.2 kg). General: Pleasant, age-appropriate patient resting comfortably, no acute distress. HEENT: Normocephalic, atraumatic. No scleral icterus. Neck: Supple and the trachea is midline. Respiratory: breaths even and unlabored. No respiratory distress. NEUROLOGICAL EXAM: Mental Status: Alert . Oriented to person place and situation. Fluent speech. No paraphasic errors. No dysarthria. Able to discuss recent and more remote medical history without apparent difficulty. Tearful at times. Cranial nerves: EOMI, no nystagmus.Normal hearing to conversation. Motor: Bulk and tone intact. There is no resting or postural tremor in the arms. Strength grossly intact. Gait: Narrow based gait with normal leg lift, stride and distance with each step. There is normal arm swing bilaterally. Assessment: ICD-10-CM 1. Chronic migraine without aura without status migrainosus, not intractable G43.709 Occupational Therapy Behavioral Health 2. Anxiety ([facility]) F41.9 Occupational Therapy Behavioral Health Noa presents for evaluation of headaches. She has prior history of episodic migraine without aura and has now been stuck in status migrainosusfor the past 6 weeks despite multiple emergency room visits and hospitalizations. Fortunately, recent cranial imaging including MRI and MRV were negative/normal with no suggestion of a secondary headache syndrome. In addition, she does not describe any additional atypical/red flag features that would suggest a secondary headache syndrome. We discussed that there is no simple or quick fix for these protracted headaches. Will be important that we take a holistic approach to management of her migraine to break this current headache cycle and manage migraines moving forward. For headache rescue treatment, recommend initiating tizanidine 2-4 mg nightly for 10 night. I have asked her to avoid other sedating medications (i.e. hydroxyzine) while on the tizanidine. She just started Emgality for migraine prophylaxis last week; I do feel this medication is a very good choice for her but it may take up to 3 months to see full benefit. I encouraged her to continue itfor the time being. If this is not effective, then will likely consider transition to Botox for management of chronic migraine. She is finding Nurtec moderately beneficial for migraine acute treatment, but it is not fully aborting her headaches. She has tried and failed multiple Triptan medications. As such, recommend transitioning to DHE nasal spray for migraine abortive therapy. She notes that if the nasal spray formulation is not covered, she would be willing to transition to the rectal suppositories provided by the compounding pharmacy. I have referred her to Occupational therapy to discuss mind/body approach and consider biofeedback for management of migraine. In addition, I think underlying anxiety and psychosocial stressors are huge contributing factors to her ongoing status migrainosus. I have encouraged her to continue the Celexa recently started by her primary care provider (she does have multiple concerns regarding this medication and I have recommended that she follow-up with her primary care provider regarding this). In addition, I recommended a formal referral to Psychiatry for discussion of pharmacologic treatments for anxiety along with consideration of starting counseling/therapy. I would encourage her to start reintroducing gentle exercise on a regular basis. Finally, I encouraged her to sit down with her /family and discuss ways that some of her current responsibilities can be removed to allow her some additional space for healing until she feels better. It is worth noting that the current status migrainosus started around the time that she came home schooling 2 of her children. Plan: 1. Ten night tizanidine burst for migraine rescue (do not take with other sedating medications) 2. Continue Emgality for migraine prophylaxis 3. Initiate DHE nasal spray for migraine acute treatment 4. Occupational therapy for management of chronic migraine 5. Referral for Psychiatry for further discussion of treatment of anxiety 6. Discussed strategies with /family regarding reduced responsibilities and allowing more space for recovery/healing 7. Follow-up in Neurology in 6 weeks, sooner if needed She voiced understanding and agreement with the plan. I encouraged her to contact our office with questions, concerns or new/worsening symptoms. Josey Stringer APRN, CNP, 02/21/2021 Total time spent was 60 minutes, which included reviewing patient records (including available diagnostic results), discussing history and current symptoms, and preparing and coordinating plan of care. documented in this encounter Plan of Treatment Scheduled Referrals Name Type Priority Associated Diagnoses Order S chedule Occupational Therapy Referral Routine Chronic migraine wit hout Ordered: 02/21/2021 aura without status migrainosus, not intractable Anxiety Behavioral Health Referral Routine Chronic migraine withou t Ordered: 02/21/2021 aura without status migrainosus, not intractable Anxiety documented as of this encounter Visit Diagnoses Diagnosis Chronic migraine without aura without st atus migrainosus, not intractable - Primary Chronic migraine without aura, without m ention of intractable migraine without mention of status migrainosus Anxiety ([facility]C) Anxiety state, unspecified documented in this encounter Care Teams Varnish Filterer Relationship Specialty Start Date End Date Sharon Mijares MD PCP - General 07/30/10 [address] [place] [address] documented as of this encounter
--- OUTSIDE RECORDS SUMMARY | 2022-01-23 23:48 | XMS_ITS | Encounter Summary ---
:1985 Author Organization [facility] Address [address] [address] Care Team Providers Name Role Phone Sharon Mijares MD Primary Care Provider [phone] Reason for Visit Reason Comments Routine Visit Encounter Details Date Type Department Care Team Description 08/09/2015 Routine ErwinHarika Deleon Routine Obstetrics/Gynecolog MD Miguelina Visit y [address] [address] [address] [place] [id number] Social History Tobacco Use Types Packs/Day Years Used Date Smoking Tobacco: Never Assessed Sex Assigned at Date Recorded Not on file documented as of this encounter Last Filed Vital Signs Vital Sign Reading Time Taken Comments Blood Pressure 122/79 08/09/2015 8:49 AM CDT Pulse 101 08/09/2015 8:49 AM CDT Temperature - - Respiratory Rate - - Oxygen Saturation - - Inhaled Oxygen Concentration - - Weight 80.8 kg (178 lb 1.6 oz) 08/09/2015 8:49 AM CDT Height 157.5 cm (5' 2) 08/09/2015 8:49 AM CDT Body Mass Index 32.58 08/09/2015 8:49 AM CDT documented in this encounter Progress Notes Covert, Harika Mcintyre MD - 08/09/2015 12:27 PM CDT OB Follow-up Visit S: Patient is here for routine care. Reports good movement, no regular uterine contractions. No vaginal bleeding or loss of fluid. Complaints/concerns: none Her Grandma recently - just went on Road trip to [place]. Does take Acyclovir for with HSV -- admits to not remembering to take at times. . Patient thought baby might have flipped O: See flowsheet NST: 120's, Mod LTV, +accels, no decels, reactive and reassuring. Bedside scan: Vertex, GLO ? Borderline A: 29 y.o. female at 38w5d weeks gestation. Patient Active Problem List Diagnosis ??? Teeth Loss Extraction ??? Headache ??? Encounter for supervision of normal first in first trimester ??? Exposure to genital herpes ??? Back pain in ??? Painful sexual intercourse ??? Heartburn during P: Return to clinic in one week(s). BPP GLO after appt to check fluid. Forma BPP done -- BPP 8/8 but fluid borderline at 6.7 Plan to hydrate over next 24 hours - repeat BPP tomorrow. Otherwise NST reassuring and good 2cm fluid pocket. Discussed SROM precautions, movement checkts, etc. Harika Mcintyre Covert 8:59 AM documented in this encounter Plan of Treatment Not on filedocumented as of this encounter Visit Diagnoses Diagnosis GLO (amniotic fluid index) borderline lo w - Primary Nonspecific abnormal finding in amniotic fluid Exposure to genital herpes Contact with or exposure to other viral diseases Encounter for supervision of normal firs t in first trimester Supervision of normal first Abnormal heart rate documented in this encounter Care Teams Rubber Liner Relationship Specialty Start Date End Date Sharon Mijares MD PCP - General 07/30/10 [address] [place] [address] documented as of this encounter
--- OUTSIDE RECORDS SUMMARY | 2022-01-23 23:48 | XMS_ITS | Encounter Summary ---
:1985 Author Organization [facility] Address [address], [place] [address] Care Team Providers Name Role Phone Sharon Mijares MD Primary Care Provider [phone] Reason for Visit Reason Comments Concerns Pre-Eclampsia Encounter Details Date Type Department Care Team Description 07/22/2015 Nurse Triage Ceci Delarosa Covert, Harika S, Concerns; Obstetrics/Gynecolog y Pre-Eclampsia [address] [facility] [address] [facility] HIEN Wright [address] [place] [address] (Wo rk) Social History Tobacco Use Types Packs/Day Years Used Date Smoking Tobacco: Never Assessed Sex Assigned at Date Recorded Not on file documented as of this encounter Nursing Notes Jazlyn Simental RN - 07/22/2015 10:30 PM CDT Reason for Call: Medication sign off needed Next Steps: If agree with below medication telephone order and no further recommendations, close encounter. Caller is NOT expecting a return call. Additional Information: Protocol: - [id number] Affirmative: [1] MODERATE headache (e.g., interferes with normal activities) AND [2] present > 24hours AND [3] unexplained (Exceptions: analgesics not tried, typical migraine, or headache part of viral illness) Disposition of See Physician Within 24 Hours suggested. Pt. having headache today, took a Fioricet tablet 4 hrs. apart with one fairly recently. Usually hersx. would be gone but are instead worse. She is now feeling nauseated with is unusual for her. She is traveling in the car and is 2 1/2 hrs. from the [facility]. She drinking plenty of fluids, no swelling in her legs or hands, no vision changes or dizziness. She doesn't know if her weight has changedor what her current B/P is but her B/P has been okay. Asking if she can take another Fioricet even though it is too soon? Called Dr. Mariza Haas, yard conductor for Dr. Crockett. She ordered the pt. could take one extra tablet now of Fioricet. She also ordered Benadryl 25 mg. to 50 mg. for the headache. Starting at 25 mg. If headache is unusual or worsening the pt. needs to be seen. Wrote down and read back the information to the provider. Called pt. back and gave her this information. Pt. has plenty of Fioricet with her and will get a benadryl over the counter. No further questions at this time and agreed to go into ER if sx. severe or be evaluated tomorrow if sx. not much better. documented in this encounter Plan of Treatment Not on filedocumented as of this encounter Visit Diagnoses Not on filedocumented in this encounter Care Teams Sister Superior Relationship Specialty Start Date End Date Sharon Mijares MD PCP - General 07/30/10 [address] [place] [address] documented as of this encounter
--- OUTSIDE RECORDS SUMMARY | 2022-01-23 23:48 | XMS_ITS | Encounter Summary ---
:1985 Author Organization [facility] Address [address], [place] [address] Care Team Providers Name Role Phone Sharon Mijares MD Primary Care Provider [phone] Reason for Visit Reason Comments Dental Conversion Legacy EDR to [place] convers ion Encounter Details Date Type Department Care Team Description 10/02/2016 Dental Conversion [place] [facility] DDS [address] [place] [address] [place] [address] Social History Tobacco Use Types Packs/Day Years Used Date Smoking Tobacco: Never Smokeless Tobacco: Never Alcohol Use Standard Drinks/Week Comments No 0 (1 standard drink = 0.6 oz pure alcoho l) Sex Assigned at Date Recorded Not on file documented as of this encounter Discharge Summaries Interface, In Edr Dental Conversion - 01/03/2017 12:00 AM CDT 01/03/2017: EDR Pt Notes: 05/30/15 snc- see contacts 10-15-15 pt failed 05-05-16 pt rescheduled this a.m. w/ another location, this appt at was not cancelled however Interface, In Edr Dental Conversion - 05/13/2016 12:00 AM CST EDR dismissed Clerical Popup Note, entered 05/13/2016: update consent form UCER ASSISTANT documented in this encounter Miscellaneous Notes Miscellaneous - Interface, In Edr Dental Conversion - 05/15/2016 12:00 AM PRODUCER ASSISTANT 05/15/2016: SNC/NS Notification: pt called at 8:14 for 12:00 appt--has no compliance spec UCER ASSISTANT Miscellaneous - Interface, In Edr Dental Conversion - 05/15/2016 12:00 AM PRODUCER ASSISTANT 05/15/2016: [facility] Discussion: pt has had 3 missed appts--went over policy UCER ASSISTANT Miscellaneous - Interface, In Edr Dental Conversion - 05/05/2016 12:00 AM PRODUCER ASSISTANT 05/05/2016: FF Discussion: went over hp snc no policy UCER ASSISTANT Miscellaneous - Interface, In Edr Dental Conversion - 10/15/2015 12:00 AM CDT 10/15/2015: SNC/NS Notification: 10-15-15 attempted to contact pt. Miscellaneous - Interface, In Edr Dental Conversion - 09/28/2015 12:00 AM CDT 09/28/2015: In Person Contact: At check in we informed her the insurance pkg cancelled 09/25/15. She said she would rather get it straightened out and reschedule then Miscellaneous - Interface, In Edr Dental Conversion - 05/30/2015 12:00 AM PRODUCER ASSISTANT 05/30/2015: No Show Call: Pt called to say she was stuck in traffic and would be here in 10-15 minutes. Pt never arrived. I tried calling her, went to voice mail.Sent 1st fail letter. UCER ASSISTANT documented in this encounter Plan of Treatment Not on filedocumented as of this encounter Visit Diagnoses Not on filedocumented in this encounter Care Teams Foil Operator Relationship Specialty Start Date End Date Sharon Mijares MD PCP - General 07/30/10 [address] [place] [address] documented as of this encounter
--- OUTSIDE RECORDS SUMMARY | 2022-01-23 23:48 | XMS_ITS | Encounter Summary ---
:1985 Author Organization [facility] Address [address] [place] [address] Care Team Providers Name Role Phone Sharon Mijares MD Primary Care Provider [phone] Reason for Visit Reason Comments Follow-up Encounter Details Date Type Department Care Team Description 08/13/2015 Nurse Triage [facility] [address] Sharon Mijares st[address] Follow-up Family Medicine MD Anil [address] [address] [phone] (Wo rk) Social History Tobacco Use Types Packs/Day Years Used Date Smoking Tobacco: Never Assessed Sex Assigned at Date Recorded Not on file documented as of this encounter Nursing Notes Rip Landeros RN - 08/13/2015 8:01 PM CDT See previous note. Nurse sent pt to and she is at . Questioning if she should be a [facility] ER instead. Denied heavy bleeding and is there for foul smelling discharge. Asked her to be seen as advised and if they believe she needs to come to the ER they can refer her over. Agreed. Protocol: - EPISIOTOMY [id number](08/12) Affirmative: Foul smelling discharge from vagina (i.e., lochia) or episiotomy site Disposition of See Physician Within 4 Hours (Or PCP Triage) suggested. documented in this encounter Plan of Treatment Not on filedocumented as of this encounter Visit Diagnoses Not on filedocumented in this encounter Care Teams Lead Shipper Relationship Specialty Start Date End Date Sharon Mijares MD PCP - General 07/30/[id number] [place] [address] documented as of this encounter
--- OUTSIDE RECORDS SUMMARY | 2022-01-23 23:48 | XMS_ITS | Encounter Summary ---
:1985 Author Organization [facility] Address [address], [place] [address] Care Team Providers Name Role Phone Sharon Mijares MD Primary Care Provider [phone] Reason for Visit Reason Giovanni JHA Encounter Details Date Type Department Care Team Description 10/23/2015 Office Visit Eric Green, Fela duffy (Primary Medicine/Pediatrics DO Dx) [address] [facility], [address] [facility] [address] [place] [address] HI[place] Parker [address] [phone] Social History Tobacco Use Types Packs/Day Years Used Date Smoking Tobacco: Never Assessed Sex Assigned at Date Recorded Not on file documented as of this encounter Last Filed Vital Signs Vital Sign Reading Time Taken Comments Blood Pressure 110/73 10/23/2015 8:28 AM CDT Pulse 79 10/23/2015 8:28 AM CDT Temperature - - Respiratory Rate - - Oxygen Saturation - - Inhaled Oxygen Concentration - - Weight 74.4 kg (164 lb) 10/23/2015 8:28 AM CDT Height - - Body Mass Index 30 10/01/2015 9:25 AM CDT documented in this encounter Progress Notes Eric Parker - 10/23/2015 9:11 AM CDT Images from the original note were not included. Today, I saw Noa Franco regarding Chief Complaint Chief Complaint Patient presents with ??? Verrucous Vulgaris Subjective: Noa Franco is a 30 y.o. with the below past medical history who presents to clinic today for issues with wart on her left heel. Noted that it has been frozen twice and she has been using kaea-dqe-bsvihrt treatments with pumice stone. Notes that it has been decreasing in size. Here today for evaluation for repeat freezing. No other warts noted. No other concerns voiced. ROS: Wart on left heel, no other rash PMHx: Past Medical History Diagnosis Date ??? 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 Migraine, unspecified, without mention of intractable migraine without mention of status migrainosus ??? Varicella Patient Active Problem List Diagnosis ??? Teeth Loss Extraction ??? Headache ??? Back pain in ??? Painful sexual intercourse ??? Heartburn during Meds: Outpatient Prescriptions Prior to Visit Medication Sig ??? all purpose nipple ointment (APNO) Apply sparingly after each feeding so that areola shines ??? cholecalciferol (VITAMIN D3) 1,000 unit tablet Take 7,000 Units by mouth daily (every 24 hours). ??? no.48-vkum-GH-dha 27mg iron- 800 mcg-250 mg Cap Take by mouth. No facility-administered medications prior to visit. Allergies: is allergic to monistat 1 (tioconazole). Family HX: Family History Problem Relation Age of Onset ??? Hypertension Father ??? Osteoporosis Maternal Grandmother Social Hx: reports that she has never smoked. She has never used smokeless tobacco. History Social History ??? Marital Status: Spouse [...] ??? Weight Concern No Social History Narrative Vitals: BP 110/73 mmHg Pulse 79 Wt 164 lb (00373 g) Gen: alert, NAD HEENT: sclera anicteric CV: good perfusion Lungs: Normal WOB Skin: pink and warm; several coalescing small warts on left heel. Neuro: Gait is steady; cn 2-12 grossly intact Psych: mood appropriate and calm affect Musculoskeletal: appropriate muscle bulk. no atrophy or hypertonicity noted. Labs and Images: Assessment and Plan ICD-10-CM 1. Plantar wart B07.0 Tolerated moderate freezing wart. Continue regimen at home. May need 1 more follow-up however this may be the last treatment. Follow Up: As needed Patient encouraged to call or send a [employer] message with any questions or concerns. Eric Parker DO Internal Medicine and Pediatrics [facility] Keith [phone] documented in this encounter Plan of Treatment Not on filedocumented as of this encounter Visit Diagnoses Diagnosis Plantar wart - Primary documented in this encounter Care Teams Wringer And Setter Relationship Specialty Start Date End Date Sharon Mijares MD PCP - General 07/30/10 [address] [place] [address] documented as of this encounter
--- OUTSIDE RECORDS SUMMARY | 2022-01-23 23:48 | XMS_ITS | Encounter Summary ---
:1985 Author Organization [facility] Address [address] [place] [address] Care Team Providers Name Role Phone Sharon Mijares MD Primary Care Provider [phone] Reason for Visit Reason Comments Routine Visit Encounter Details Date Type Department Care Team Description 07/18/2015 Routine [facility] Obstetrics/Gynecolog MD Nirmal Visit y [address] [facility] [address] [address] [address] [place] [phone] Social History Tobacco Use Types Packs/Day Years Used Date Smoking Tobacco: Never Assessed Sex Assigned at Date Recorded Not on file documented as of this encounter Last Filed Vital Signs Vital Sign Reading Time Taken Comments Blood Pressure 121/77 07/18/2015 11:27 AM CDT Pulse 95 07/18/2015 11:27 AM CDT Temperature - - Respiratory Rate - - Oxygen Saturation - - Inhaled Oxygen Concentration - - Weight 80.3 kg (177 lb) 07/18/2015 11:27 AM CDT Height 157.5 cm (5' 2) 07/18/2015 11:27 AM CDT Body Mass Index 32.37 07/18/2015 11:27 AM CDT documented in this encounter Patient Instructions Patient InstructionsFarida Flores LPN - 07/18/2015 11:27 AM CDT Thank you for choosing [facility] for your care. We recommend you review the following information in the book Preparing for Childbirth: ?? Circumcision information (if appropriate) ?? True Labor vs. False Labor ?? Repeat / Planned Section () preparation and recover tips Pack your books in your labor bag and bring to the hospital at your time of delivery. Your care teammay refer to helpful topics during your hospital stay. As a small gift of our appreciation for trusting your care to [facility], please accept [employer] advisor-a health die cutting machine operator. This fun deck of cards, full of bite sized health information, can help guide you in the days, weeks and months following childbirth. documented in this encounter Progress Notes Alfreda Moran MD - 07/18/2015 12:07 PM CDT OB Visit S: Feeling well overall. Her grandmother - she was sick for some time. Patient and her are planning to drive to [place] for the . They were going to fly but given concernsregarding this they will drive. Her sister is there, is and has an C2 TACTICAL ANALYSIS TECHNICIAN physician that she follows with and so would have care in [place] if needed. No other concerns. No contractions. +FM. O: BP 121/77 mmHg Pulse 95 Ht 5' 2 (1.575 m) Wt 177 lb (80.287 kg) BMI 32.37 kg/m2 LMP 11/11/2014 see flowsheet Vertex by BS A: IUP @ 35+4 weeks here for OB visit, doing well. P: 1. GBS done today 2. Labor precautions discussed 3. Discussed planning route of travel where hospitals available. Stop frequently. She has C2 TACTICAL ANALYSIS TECHNICIAN that her sister sees in [place] if she has any concerns. Kick counts, s/sx of preE discussed and should be seen if any concerning symptoms. 4. Start acyclovir for herpes prophylaxis - partner is +. Patient without history of this. 5. RTC as soon as returning home - will be ~ 2 weeks. Alfreda Moran documented in this encounter Plan of Treatment Not on filedocumented as of this encounter Procedures Procedure Name Priority Date/Time Associated Diagnosis Comme nts GROUP B STREP Routine 07/18/2015 11:55 screening Res ults for this SCREEN (OB PTS) AM CDT for streptococcus B proce dure are in the results section. documented in this encounter Results Group B Strep Screen (OB Pts) (07/18/2015 11:55 AM CDT) Component Value Ref Test Analysis Performed At [facility] gist Range Method Time Signature Source Vag/Rec HP CONVERSION Site HP CONVERSION Culture Strep No Group B HP CONVERSION Screen Other Streptococcus Source Isolated Specimen (Source) Anatomical Collection Method Collection Time Re ceived Time Location / / Volume Laterality Vag/Rec: 07/18/2015 11:55 AM CDT Narrative HP CONVERSION - 07/21/2015 8:31 PM CDT Performed at [facility], [address] [place] [address], CLIA Number [id number] Alfreda Moran MD LAB_1 Performing Organization Address City/State/ZIP Code Phon e Number HP CONVERSION documented in this encounter Visit Diagnoses Diagnosis Encounter for supervision of normal firs t in third trimester - Primary Supervision of normal first Exposure to genital herpes Contact with or exposure to other viral diseases screening for streptococcus B screening for Streptococcus B documented in this encounter Care Teams Zipper Machine Operator Relationship Specialty Start Date End Date Sharon Mijares MD PCP - General 07/30/10 [address] [place] [address] documented as of this encounter
--- OUTSIDE RECORDS SUMMARY | 2022-01-23 23:48 | XMS_ITS | Encounter Summary ---
:1985 Author Organization [facility] Address [address] [address] Care Team Providers Name Role Phone Sharon Mijares MD Primary Care Provider [phone] Reason for Visit Reason INGRID Nolasco Encounter Details Date Type Department Care Team Description 07/07/2016 Office Visit [facility] Meera Santos Plan tar wart ([facility] Med PA-C Dx) Peds [address] [facility] [address] [facility] [address] [place], [place] [address] [phone] Social History Tobacco Use Types Packs/Day Years Used Date Smoking Tobacco: Never Smokeless Tobacco: Never Alcohol Use Standard Drinks/Week Comments No 0 (1 standard drink = 0.6 oz pure alcoho l) Sex Assigned at Date Recorded Not on file documented as of this encounter Last Filed Vital Signs Vital Sign Reading Time Taken Comments Blood Pressure 105/80 07/07/2016 9:05 AM CDT Pulse 76 07/07/2016 9:05 AM CDT Temperature - - Respiratory Rate - - Oxygen Saturation - - Inhaled Oxygen Concentration - - Weight 71.2 kg (157 lb) 07/07/2016 9:05 AM CDT Height - - Body Mass Index 28.72 10/01/2015 9:25 AM CDT documented in this encounter Progress Notes Meera Santos PA-C - 07/07/2016 9:23 AM CDT Over the benefit [facility] NOTE NAME: Noa Franco DATE: 07/07/2016 AGE: 30 y.o. : 1985 CHIEF COMPLAINT: wart HPI: Noa is here today for retreatment of the wart on her left heel. She has had this for almosta year. It has been treated with liquid nitrogen 5 times since then, but she has never had consistent treatments every 2 weeks. She has now had three consistent treatments on 04/30/16, 05/26/16 and 06/09/16. She tolerated these well. She has no other concerns while she [...] Outpatient Prescriptions Marked as Taking for the 07/07/16 encounter (Office Visit) with Joshua Santos PA-C Medication Sig Dispense Refill ??? cholecalciferol (VITAMIN D3) 1000 UNITS tablet Take 1,000 Units by mouth Daily. ??? cyclobenzaprine (FLEXERIL) 5 MG tablet Take 0.5-1 Tabs by mouth daily as needed for Muscle Spasms. 10 Tab 0 ??? Iykckzjp-Ech-Gt-FA (/IRON OR) Take by mouth. ALLERGIES: Allergies Allergen Reactions ??? Tioconazole PN: Redness PHYSICAL EXAM: VITALS: BP 105/80 mmHg Pulse 76 Wt 157 lb (15079 g) GENERAL: This is a 30 y.o. year old female who is alert and oriented in no acute distress. SKIN: Warm and dry. Examination of the skin on the lateral left heel reveals a 6 mm oval-shaped verrucous raised black lesion with out surrounding erythema. This area was pared down to reveal a 3 mm verrucous lesion and disruption in the skin lines. ASSESSMENT AND PLAN: Noa was seen today for wart, plantar. Diagnoses and all orders for this visit: Plantar wart - DESTRUCT BENIGN SKIN LESIONS UP TO 14 [id number] - She gave verbal consent to have her wart retreated with liquid nitrogen for cryotherapy. The wart was first pared down using a scalpel. It was treated in a freeze-thaw pattern of 3 cycles using liquid nitrogen. She tolerated this well. A bandage was applied. She was encouraged to return in 2-3 weeksfor retreatment. This will likely require 1-2 more treatments. Since she has not been consistently treating the wart every 2 weeks, it does not appear as though she has met her limit for cryotherapy treatments. Today's treatment would be considered the 4th. She understands and agrees and will make an appointment for follow-up in 2-3 weeks. documented in this encounter Plan of Treatment Not on filedocumented as of this encounter Visit Diagnoses Diagnosis Plantar wart - Primary documented in this encounter Care Teams Technical Publications Manager Relationship Specialty Start Date End Date Sharon Mijares MD PCP - General 07/30/10 [address] [place] [address] documented as of this encounter
--- OUTSIDE RECORDS SUMMARY | 2022-01-23 23:48 | XMS_ITS | Encounter Summary ---
:1985 Author Organization [facility] Address [address], [place] [address] Care Team Providers Name Role Phone Sharon Mijares MD Primary Care Provider [phone] Reason for Visit Procedure/Equipment (Routine) - Incomplete Specialty Diagnoses / Procedures Referred By Contact Refer red To Contact Diagnoses Generalized abdominal pain John Guillen MD Procedures XR Abd Flat And Upright [address] [place] [address] Referral ID Status Reason Start Date Expiration Date Visits V isits Requested Authorized [id number] Incomplete 10/17/2016 01/16/2018 1 1 Encounter Details Date Type Department Care Team Description 10/17/2016 Imaging [facility] - Radiology [address] [place], [place] [address] Social History Tobacco Use Types [...] Name Priority Date/Time Associated Diagnosis Comme nts XR ABD FLAT AND Routine 10/17/2016 6:17 PM Generalized Result s for this UPRIGHT CDT abdominal pain procedure are in the results section. documented in this encounter Results XR Abd Flat And Upright (10/17/2016 6:17 PM CDT) Anatomical Region Laterality Modality Abdomen Computed Radiography Specimen (Source) Anatomical Collection Method Collection Time Re ceived Time Location / / Volume Laterality 10/17/2016 6:05 PM CDT Narrative 10/17/2016 6:32 PM CDT COMPARISON: ??None. FINDINGS: ??Prominent stool in the nondi stended right colon. No significant bowel dilatation or air-fluid levels. Overall nonspecific, nonobstructive bowel gas pattern. No giorgio free air or pneumatosis intestinalis. Lung bases clear. Procedure Note Yon Ellis, DO - 10/17/2016For matting of this note might be different from the original. COMPARISON: None. FINDINGS: Prominent stool in the nondist ended right colon. No significant bowel dilatation or air-fluid levels. Overall nonspecific, nonobstructive bowel gas pattern. No giorgio free air or pneumatosis intestinalis. Lung bases clear. John Guillen MD RAD GD documented in this encounter Visit Diagnoses Not on filedocumented in this encounter Care Teams Mortgage Collector Relationship Specialty Start Date End Date Sharon Mijares MD PCP - General 07/30/10 [address] [place] [address] documented as of this encounter
--- OUTSIDE RECORDS SUMMARY | 2022-01-23 23:48 | XMS_ITS | Encounter Summary ---
:1985 Author Organization [facility] Address [address] [place] [address] Care Team Providers Name Role Phone Sharon Mijares MD Primary Care Provider [phone] Reason for Visit Reason Comments INGRID JHA Encounter Details Date Type Department Care Team Description 06/09/2016 Office Visit [facility] Meera Santos Plan tar wart ([facility] PA-C Dx) Peds [address] [facility] [address] [facility] [place], [place] [address] [phone] Social History Tobacco Use Types Packs/Day Years Used Date Smoking Tobacco: Never Smokeless Tobacco: Never Alcohol Use Standard Drinks/Week Comments No 0 (1 standard drink = 0.6 oz pure alcoho l) Sex Assigned at Date Recorded Not on file documented as of this encounter Last Filed Vital Signs Vital Sign Reading Time Taken Comments Blood Pressure 114/69 06/09/2016 8:55 AM CABLE TOOL DRILLER Pulse 82 06/09/2016 8:55 AM CABLE TOOL DRILLER Temperature - - Respiratory Rate - - Oxygen Saturation - - Inhaled Oxygen Concentration - - Weight - - Height - - Body Mass Index - - documented in this encounter Progress Notes Meera Santos PA-C - 06/09/2016 9:21 AM CST Over the benefit [facility] OUT[facility] NOTE NAME: Noa Franco DATE: 06/09/2016 AGE: 30 y.o. : 1985 CHIEF COMPLAINT: wart HPI: Noa is here today for retreatment of the wart on her left heel. She has had this for almosta year. It has been treated with liquid nitrogen 5 times since then, but she has never had consistent treatments every 2 weeks. She has now had two consistent treatments on 04/30/16 and 05/26/16. She tolerated these well. She has no [...] Outpatient Prescriptions Marked as Taking for the 06/09/16 encounter (Office Visit) with Joshua Santos PA-C Medication Sig Dispense Refill ??? cholecalciferol (VITAMIN D3) 1000 UNITS tablet Take 7,000 Units by mouth daily (every 24 hours). ??? cyclobenzaprine (FLEXERIL) 5 MG tablet Take 0.5-1 Tabs by mouth daily as needed for Muscle Spasms. 10 Tab 0 ??? Gaczsrpj-Jml-Zc-FA (/IRON OR) Take by mouth. ALLERGIES: Allergies Allergen Reactions ??? Tioconazole PN: Redness PHYSICAL EXAM: VITALS: BP 114/69 mmHg Pulse 82 GENERAL: This is a 30 y.o. year old female who is alert and oriented in no acute distress. SKIN: Warm and dry. Examination of the skin on the lateral left heel reveals a 4 mm oval-shaped verrucous raised lesion with out surrounding erythema, larger than last week. ASSESSMENT AND PLAN: Noa was seen today for wart, plantar. Diagnoses and all orders for this visit: Plantar wart - [place] [address] - She gave verbal consent to have her wart retreated with liquid nitrogen for cryotherapy. The wart was first pared down using a scalpel. It was treated in a freeze-thaw pattern of 3 cycles using liquid nitrogen. She tolerated this well. A bandage was applied. She was encouraged to return in 2 weeks for retreatment. It does appear larger than it did last visit and will likely require a few more treatments. Since she has not been consistently treating the wart every 2 weeks, it does not appear as though she has met her limit for cryotherapy treatments. Today's treatment would be considered the 3rd. She understands and agrees and will make an appointment for follow-up in 2 weeks. E TOOL DRILLER documented in this encounter Plan of Treatment Not on filedocumented as of this encounter Visit Diagnoses Diagnosis Plantar wart - Primary documented in this encounter Care Teams Literature Teacher Relationship Specialty Start Date End Date Sharon Mijares MD PCP - General 07/30/10 [address] [place] [address] documented as of this encounter
--- OUTSIDE RECORDS SUMMARY | 2022-01-23 23:48 | XMS_ITS | Encounter Summary ---
:1985 Author Organization [facility] Address [address] [place] [address] Care Team Providers Name Role Phone Sharon Mijares MD Primary Care Provider [phone] Reason for Visit Reason Comments CONSULT Encounter Details Date Type Department Care Team Description 08/14/2015 Initial Consult Mariza Weiss Disruption of perineal laceration repair in the puerperium (Primary Dx); Obstetrics/Gynecolog migue Robison MD symptom [address] [place] [address] [address] [place] [phone] Social History Tobacco Use Types Packs/Day Years Used Date Smoking Tobacco: Never Assessed Sex Assigned at Date Recorded Not on file documented as of this encounter Last Filed Vital Signs Vital Sign Reading Time Taken Comments Blood Pressure 123/85 08/14/2015 11:11 AM CDT Pulse 79 08/14/2015 11:11 AM CDT Temperature - - Respiratory Rate - - Oxygen Saturation - - Inhaled Oxygen Concentration - - Weight 78.6 kg (173 lb 3.2 oz) 08/14/2015 11:11 AM CDT Height 157.5 cm (5' 2) 08/14/2015 11:11 AM CDT Body Mass Index 31.68 08/14/2015 11:11 AM CDT documented in this encounter Patient Instructions Patient InstructionsMariza Haas - 08/14/2015 11:20 AM CDT Acetaminophen 1000 mg every 6 hours as needed for pain (maximum acetaminophen dosing 4000 mg daily) documented in this encounter Progress Notes Mariza Haas - 08/15/2015 11:09 AM CDT Add on exam: 29 y.o. female presents for perineal incision check. She had a on 08/10/15 of a baby girl weighing 5 pounds, 11 ounces . The baby's name is Kira. Vaginal bleeding continues and is mod-mild. She is breast and bottle. Presents today to have check up on her perineal incision. Had been really active this weekend and then her bottom suddenly felt more sore and felt tearing type pain at her sutures. Is tolerable and does not feel like she needs pain medications. Went to and they eamined her and felt her incision wasslightly and prescribed keflex for concern for superficial skin infection. She is taking the keflex. Is tolerating this well. No fevers. Nursing has been slightly difficult as baby sleepy. She had to given baby bottle of pumped milk today as not wanting to nurse. She is small and had some weight loss but now doing well. Her nipples are sore. She wants to continue . [place] Depression Screening Score: Score: 3 Review of systems: Denies bowel or bladder problems. Medications: Outpatient Prescriptions Prior to Visit Medication Sig ??? [DISCONTINUED] acyclovir (ZOVIRAX) 400 mg tablet Take 1 tablet by mouth 2 times daily. ??? dptwlnkmsl-zcwlydjnmkgen-nabbevjl (FIORICET, ESGIC) 50 mg-325 mg-40 mg per tablet Take 1 tablet by mouth every 4 hours as needed for Headaches. ??? cephALEXin (KEFLEX) 500 mg capsule Take 1 capsule by mouth 3 times daily. ??? cholecalciferol (VITAMIN D3) 1,000 unit tablet Take 1,000 Units by mouth daily (every 24 hours). ??? [DISCONTINUED] famotidine (PEPCID) 10 mg tablet Take 10 mg by mouth 2 times daily. taking 2 tablets once a day ??? no.23-qzgw-GB-dha 27mg iron- 800 mcg-250 mg Cap Take by mouth. ??? pyridoxine (VITAMIN B6) 25 mg tablet Take 1 tablet by mouth daily (every 24 hours) for 30 days. No facility-administered medications prior to visit. Allergies: Allergies Allergen Reactions ??? Monistat 1 (Tioconazole) [Tioconazole] Redness Examination: Healthy appearing female in no distress. BP 123/85 mmHg Pulse 79 Ht 5' 2 (1.575 m) Wt 173 lb 3.2 oz (78.563 kg) BMI 31.67 kg/m2 LMP 11/11/2014 Abdomen soft without organomegaly,hernia, masses or tenderness. Vulva is normal. Perineum is slightly about 6 mm in size at incision and appears to be granulating in well by secondary intention. Area is slightly tender to palpation and with mild odor. Slightly erythema at incision edges, appears mostly granulation in nature. Lab Results Component Value Date/Time HEMOGLOBIN 13.3 01/11/2015 0934 HEMOGLOBIN 14.7 10/01/20062003 OB HEMOGLOBIN 11.9 05/24/2015 0950 Assessment: Slightly perineal incision- healing by secondary intention. Possible low gradecellulitis. Plan: Discussed perineal cares in detail. Discussed healing by secondary intention. Discussed need for sitz baths TID as best treatment modality and to take it easy for next 1-2 weeks. Continue keflex as prescribed. Offered topical lidocaine or pain medications but declines. Recheck in 1 week with or myself. Given sore nipples, given APNO ointment, told to call [facility] to have mailed to her.Offered support for , she will see collective bargaining specialist. More than 15 minutes was spent with patient with greater than 10 minutes in face to face consultation in regards to new problem of perineal incision separation and concerns. Orders Placed This Encounter ??? all purpose nipple ointment (APNO) Mariza Haas MD 08/15/2015 10:54 AM documented in this encounter Plan of Treatment Not on filedocumented as of this encounter Visit Diagnoses Diagnosis Disruption of perineal laceration repair in the puerperium - Primary Disruption of perineal wound, unspecifie d as to episode of care in symptom Unspecified disorder of , unspe cified as to episode of care documented in this encounter Care Teams Chief Mechanical Officer Relationship Specialty Start Date End Date Sharon Mijares MD PCP - General 07/30/10 [address] [place] [address] documented as of this encounter
--- OUTSIDE RECORDS SUMMARY | 2022-01-23 23:48 | XMS_ITS | Encounter Summary ---
:1985 Author Organization [facility] Address [address], [place] [address] Care Team Providers Name Role Phone Sharon Mijares MD Primary Care Provider [phone] Reason for Visit Reason Comments Concerns Encounter Details Date Type Department Care Team Description 06/12/[address] [facility] Sharon Mijares egnan Concerns [facility] MD [facility]il [address] [facility] [address] [place] [address] [phone] [place], [place] [address] (Wo rk) Social History Tobacco Use Types Packs/Day Years Used Date Smoking Tobacco: Never Assessed Sex Assigned at Date Recorded Not on file documented as of this encounter Nursing Notes Ofelia Pritchett RN - 06/12/2015 11:47 PM CST Protocol: - ABDOMINAL PAIN GREATER THAN 20 WEEKS [id number] Affirmative: MODERATE-SEVERE abdominal pain (e.g., interferes with normal activities, awakens from sleep) Disposition of Go To LD Now suggested. Pt. calling, is 30 wks. . Pt. has history of reflux. C/O constant severe upper abdominal pain tonight, since @ 10 pm. Appetite fair, not usually hungry in the evenings. Is afebrile, no vomiting. Has tried Tums and Pepcid and elevated HOB, with no relief. Pt. unsure if she is having contractions. Has good movement. No unusual vaginal drainage. Afebrile. Voiding well, BM's normal. Call transferred to meat press operator to speak with CNM diamond die maker ARAT DEALER documented in this encounter Plan of Treatment Not on filedocumented as of this encounter Visit Diagnoses Not on filedocumented in this encounter Care Teams Recoverer Relationship Specialty Start Date End Date Sharon Mijares MD PCP - General 07/30/10 [address] [place], [place] [id number] documented as of this encounter
--- OUTSIDE RECORDS SUMMARY | 2022-01-23 23:48 | XMS_ITS | Encounter Summary ---
:1985 Author Organization [facility] Address [address], [place] [address] Care Team Providers Name Role Phone Sharon Mijares MD Primary Care Provider [phone] Reason for Visit Reason Comments INGRID JHA Encounter Details Date Type Department Care Team Description 10/01/2015 Office Visit [facility] Richie Mcintyre P lantar wart ([facility] Med DO Dx) Peds [address] [place] [address] [address] [place], [place] [address] [phone] Social History Tobacco Use Types Packs/Day Years Used Date Smoking Tobacco: Never Assessed Sex Assigned at Date Recorded Not on file documented as of this encounter Last Filed Vital Signs Vital Sign Reading Time Taken Comments Blood Pressure 114/67 10/01/2015 10:41 AM CDT Pulse - - Temperature - - Respiratory Rate - - Oxygen Saturation - - Inhaled Oxygen Concentration - - Weight 74.1 kg (163 lb 7 oz) 10/01/2015 10:41 AM CDT Height - - Body Mass Index 29.89 10/01/2015 9:25 AM CDT documented in this encounter Progress Notes Richie Mcintyre DO - 10/01/2015 11:09 AM CDT PROCEDURE NOTE: SKIN LESION DESTRUCTION CHIEF COMPLAINT: SKIN WART(S) 30 y.o. female here for wart treatment. Allergies Allergen Reactions ??? Monistat 1 (Tioconazole) [Tioconazole] Redness Current Outpatient Prescriptions Medication Sig Dispense Refill ??? all purpose nipple ointment (APNO) Apply sparingly after each feeding so that areola shines 30.6g prn ??? cholecalciferol (VITAMIN D3) 1,000 unit tablet Take 7,000 Units by mouth daily (every 24 hours). ??? no.50-qzfr-GW-dha 27mg iron- 800 mcg-250 mg Cap Take by mouth. ??? pyridoxine (VITAMIN B6) 25 mg tablet Take 1 tablet by mouth daily (every 24 hours) for 30 days. 60 tablet 0 No current facility-administered medications for this visit. BP 114/67 mmHg Wt 163 lb 7 oz (54489 g) LMP 11/11/2014 LOCATION #1: left heel LOCATION #2: n/a HISTORY: LESION HAS BEEN PRESENT FOR months-- s/p treatment with cryo x 1 with Nena Saladin DESCRIPTION: VERRUCOUS PAPULE CONSISTENT WITH A BENIGN WART. NUMBER OF LESIONS TREATED @ THIS SITE: 1 SIZE OF LARGEST LESION: 10 MM. ASSESSMENT: WART(S) (078.10) PROCEDURE NOTE: DISCUSSED RISK OF PAIN, BLISTERING, INFECTION, SCARRING, HYPOPIGMENTATION, HYPERPIGMENTATION, AND RECURRENCE OR NEED FOR RETREATMENT. BENEFITS OF TREATMENT AND ALTERNATIVE TREATMENTS WERE ALSO DISCUSSED. LESION SWABBED WITH ALCOHOL AND SKIN WAS PARED AWAY WITH A #15 BLADE SCALPEL. LIQUID NITROGEN APPLIED TO FREEZE THE ENTIRE LESION(S) INCLUDING A NARROW MARGIN OF SURROUNDING SKIN. AFTER THAWING, FREEZING WAS REPEATED X 1. PLAN: RETURN TO CLINIC IF THERE IS NOT COMPLETE RESOLUTION OF THE LESION OVER THE NEXT 2-3 WEEKS. documented in this encounter Plan of Treatment Not on filedocumented as of this encounter Visit Diagnoses Diagnosis Plantar wart - Primary documented in this encounter Care Teams Flame Cutting Machine Operator Helper Relationship Specialty Start Date End Date Sharon Mijares MD PCP - General 07/30/10 [address] [place] [address] documented as of this encounter
--- OUTSIDE RECORDS SUMMARY | 2022-01-23 23:48 | XMS_ITS | Encounter Summary ---
:1985 Author Organization [facility] Address [address], [place] [address] Care Team Providers Name Role Phone Sharon Mijares MD Primary Care Provider [phone] Reason for Visit Reason Comments LABOR Encounter Details Date Type Department Care Team Description 06/25/2015 Telephone [place] Tammy Mijares MD LABOR Obstetrics/Gynecolog y [address] [facility] [address] [place], [place] [address] [place] [address] [phone] (Wo rk) Social History Tobacco Use Types Packs/Day Years Used Date Smoking Tobacco: Never Assessed Sex Assigned at Date Recorded Not on file documented as of this encounter Nursing Notes Lissa Stallings RN - 06/25/2015 8:43 PM CST Patient calling in She is 32 weeks and leaking amonic fluid. She will go into [facility] to be evaluated. NESS CONTROL SPECIALIST documented in this encounter Plan of Treatment Not on filedocumented as of this encounter Visit Diagnoses Not on filedocumented in this encounter Care Teams Advance Seal Delivery System Maintainer Relationship Specialty Start Date End Date Sharon Mijares MD PCP - General 07/30/10 [address] [place] [address] documented as of this encounter
--- OUTSIDE RECORDS SUMMARY | 2022-01-23 23:48 | XMS_ITS | Encounter Summary ---
:1985 Author Organization [facility] Address [address] [address] Care Team Providers Name Role Phone Sharon Mijares MD Primary Care Provider [phone] Reason for Referral Consult/Transfer Care (Routine) - Closed Specialty Diagnoses / Procedures Referred By Contact Refer red To Contact Diagnoses [place] [address] [place] [address] Referral ID Status Reason Start Date Expiration Date Visits Requ ested Visits Authorized [id number] Closed 10/17/2016 01/16/2018 1 1 Scheduling Instructions Your provider has recommended an appoint ment with [facility]. You may call [phone] to schedule your a ppointment. If you do not schedule an appointment within the next 1 to 3 busin ess days, we will call you to help arrange your appointment. We suggest you call [employer] about your coverage and benefits for this appointme nt. Procedure/Equipment (Routine) - Incomplete Specialty Diagnoses / Procedures Referred By Contact Refer red To Contact Diagnoses Generalized abdominal pain John Guillen MD Procedures US Abd RUQ Organs [address] [address] [place] [address] Referral ID Status Reason Start Date Expiration Date Visits V isits Requested Authorized [id number] Incomplete 10/17/2016 01/16/2018 1 1 Procedure/Equipment (Routine) - Incomplete Specialty Diagnoses / Procedures Referred By Contact Refer red To Contact Diagnoses Generalized abdominal pain John Guillen MD Procedures XR Abd Flat And Upright [address] [place] [address] Referral ID Status Reason Start Date Expiration Date Visits V isits Requested Authorized [id number] Incomplete 10/17/2016 01/16/2018 1 1 Reason for Visit Reason Comments Abdominal Pain Back Pain Encounter Details Date Type Department Care Team Description 10/17/2016 Hospital Encounter John Tovar Sympt omatic cholelithiasis (Primary Dx); [facility] Generalized abdominal pain Urgent Care [id number] [place] [phone] Social History Tobacco Use Types Packs/Day Years Used Date Smoking Tobacco: Never Smokeless Tobacco: Never Alcohol Use Standard Drinks/Week Comments No 0 (1 standard drink = 0.6 oz pure alcoho l) Sex Assigned at Date Recorded Not on file documented as of this encounter Last Filed Vital Signs Vital Sign Reading Time Taken Comments Blood Pressure 128/77 10/17/2016 5:01 PM CDT Pulse 85 10/17/2016 5:01 PM CDT Temperature 36.7 ??C (98 ??F) 10/17/2016 5:01 PM CDT Respiratory Rate 16 10/17/2016 5:01 PM CDT Oxygen Saturation 100% 10/17/2016 5:01 PM CDT Inhaled Oxygen Concentration - - Weight - - Height - - Body Mass Index - - documented in this encounter Discharge Instructions Discharge InstructionsJohn Guillen MD - 10/17/2016 7:05 PM CDT Images from the original note were not included. Biliary Colic: Care Instructions Your Care Instructions Biliary (say YCRU-sk-utb-ilia) colic is belly pain caused by gallbladder problems. It is usually caused by a gallstone moving through or blocking the common bile duct or cystic duct. Gallstones are stones that form in the gallbladder. They are made of cholesterol and other substances. The gallbladder is a small sac located just under the liver. It stores bile released by the liver.Bile helps you digest fats. Gallstones also can form in the common bile duct or cystic duct. These ducts carry bile from the gallbladder and the liver to the small intestine. Gallstones may be as small as a grain of sand or as large as a golf ball. Gallstones that cause severe symptoms usually are treated with surgery to remove the gallbladder. Ifthe first attack of biliary colic is mild, it is often safe to wait until you have had another attack before you think about having surgery. The doctor has checked you carefully, but problems can develop later. If you notice any problems or new symptoms, get medical treatment right away. Follow-up care is a rand part of your treatment and safety. Be sure to make and go to all appointments, and call your doctor if you are having problems. It's also a good idea to know your test results and keep a list of the medicines you take. How can you care for yourself at home? ?? Take pain medicines exactly as directed. ?? If the doctor gave you a prescription medicine for pain, take it as prescribed. ?? If you are not taking a prescription pain medicine, ask your doctor if you can take an ymri-iiw-ruqskdm medicine. Read and follow all instructions on the label. ?? Avoid foods that cause symptoms, especially fatty foods. These can cause biliary colic. ?? You may need more tests to look at your gallbladder. When should you call for help? Call your doctor now or seek immediate medical care if: ?? You have a fever. ?? You have new belly pain, or your pain gets worse. ?? There is a new or increasing yellow tint to your skin or the whites of your eyes. ?? Your urine is dark yellow-brown, or your stools are light-colored or white. ?? You cannot keep down fluids. Watch closely for changes in your health, and be sure to contact your doctor if: ?? You do not get better as expected. ?? You are not getting better after 1 day (24 hours). Where can you learn more? 1. Go to F[employer]phere/[employer]k Fans or [employer]/apstrataraGreen Energy Options. 2. Enter X038 in the search box. Current as of: December 04, 2015 Content Version: 11.2 ?? [id number] [employer]. Low-Fat Diet for Gallbladder Disease: Care Instructions Your Care Instructions When you eat, the gallbladder releases bile, which helps you digest the fat in food. If you have an inflamed gallbladder, this may cause pain. A low-fat diet may give your gallbladder a rest so you canstart to heal. Your doctor and dietitian can help you make an eating plan that does not irritate your digestive system. Always talk with your doctor or dietitian before you make changes in your diet. Follow-up care is a rand part of your treatment and safety. Be sure to make and go to all appointments, and call your doctor if you are having problems. It's also a good idea to know your test results and keep a list of the medicines you take. How can you care for yourself at home? ?? Eat many small meals and snacks each day instead of three large meals. ?? Choose lean meats. ?? Eat no more than 5 to 6?? ounces of meat a day. ?? Cut off all fat you can see. ?? Eat chicken and turkey without the skin. ?? Many types of fish, such as salmon, yoder trout, tuna, and miles, provide healthy omega-3 fat. But, avoid fish canned in oil, such as sardines in olive oil. ?? Bake, broil, or grill meats, poultry, or fish instead of frying them in butter or fat. ?? Drink or eat nonfat or low-fat milk, yogurt, cheese, or other milk products each day. ?? Read the labels on cheeses, and choose those with less than 5 grams of fat an ounce. ?? Try fat-free sour cream, cream cheese, or yogurt. ?? Avoid cream soups and cream sauces on pasta. ?? Eat low-fat ice cream, frozen yogurt, or sorbet. Avoid regular ice cream. ?? Eat whole-grain cereals, breads, crackers, rice, or pasta. Avoid high-fat foods such as croissants, scones, biscuits, waffles, doughnuts, muffins, granola, and high-fat breads. ?? Flavor your foods with herbs and spices (such as basil, tarragon, or mint), fat-free sauces, or lemon juice instead of butter. You can also use butter substitutes, fat-free mayonnaise, or fat-free dressing. ?? Try applesauce, prune puree, or mashed bananas to replace some or all of the fat when you bake. ?? Limit fats and oils, such as butter, margarine, mayonnaise, and salad dressing, to no more than 1tablespoon a meal. ?? Avoid high-fat foods, such as: ?? Chocolate, whole milk, ice cream, and processed cheese. ?? Fried or buttered foods. ?? Sausage, salami, and mohan. ?? Cinnamon rolls, cakes, pies, cookies, and other pastries. ?? Prepared snack foods, such as potato chips, nut and granola bars, and mixed nuts. ?? Coconut and avocado. ?? Learn how to read food labels for serving sizes and ingredients. Fast-food and convenience-food meals often have lots of fat. Where can you learn more? 1. Go to Finsphere/MyWealthrary or [employer]/apstratarary. 2. Enter Z797 in the search box. Current as of: November 20, 2015 Content Version: 11.2 ?? [employer]. Gallbladder and Liver: Anatomy Sketch Current as of: May 01, 2016 Content Version: 11.2 ?? 7 [employer]. documented in this encounter Medications at Time of Discharge Medication Sig Dispensed Refills Start Date End Date cholecalciferol (VITAMIN Take 1,000 Units 0 06/21 D3) 1000 UNITS tablet by mouth Daily. Emslsfvy-Wyq-He-FA Take by mouth. 0 03/29 (/IRON OR) cyclobenzaprine (FLEXERIL) Take 0.5-1 Tabs by 10 Tab 0 1 05/29/2015 02/21/2021 5 MG tabletIndications: mouth daily as Chronic nonintractable needed for Muscle headache, unspecified Spasms. headache type documented as of this encounter ED Notes John Guillen MD - 10/17/2016 7:07 PM CDT Subjective: Patient ID: Noa Franco is an 31 y.o. female. Chief Complaint: Abdominal and back pain HPI 31-year-old female presents with acute onset 3 PM today of abdominal pain. Abdominal pain is generalized but seems to be worse on the right side. Pain does shoot to her back diffusely, she states the pain is more in the left side. She has been eating fatty or any increase your foods recently. Some nausea but no vomiting. Pain is 8 out of 10 and has been constant. No fevers or chills. No black tarry stools or light stools. She states she occasionally gets similar episodes of pain but not this bad. Noprevious history of gallstones, she denies any previous abdominal surgery. She does not believe she is , last menstrual period was 2 weeks ago but she has been active without using any contraception. She does feel bloated. No associated urinary symptoms. No new vaginal symptoms. Pain is not worse or relieved with movement. No new heartburn symptoms. No associated chest pain or shortness of breath. Past Medical History: Diagnosis Date ??? Migraine, unspecified, without mention of intractable migraine without mention of status migrainosus ??? 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 Varicella Patient Active Problem List Diagnosis ??? Acquired absence of teeth ??? Headache ??? Back pain in ??? Painful sexual intercourse ??? Heartburn during ??? Common wart ??? Plantar wart Past Surgical History: Procedure Laterality Date ??? WISDOM TEETH EXTRACTION No current facility-administered medications for this encounter. Current Outpatient Prescriptions Medication Sig Dispense Refill ??? cholecalciferol (VITAMIN D3) 1000 UNITS tablet Take 1,000 Units by mouth Daily. ??? cyclobenzaprine (FLEXERIL) 5 MG tablet Take 0.5-1 Tabs by mouth daily as needed for Muscle Spasms. (Patient not taking: Reported on 10/17/2016) 10 Tab 0 ??? Aacsvmyn-Yta-Kt-FA (/IRON OR) Take by mouth. Allergies for Magiera,Noa L Status Agent Date Noted Reaction Type Active TIOCONAZOLE 09/04/2014 Review of Systems All other systems reviewed and are negative except as noted in HPI. Objective: BP 128/77 Pulse 85 Temp 36.7 ??C (98 ??F) (Oral) Resp 16 SpO2 100% Physical Exam Nursing note and vitals reviewed. Constitutional: Patient appears well-developed and well-nourished. HENT: Head: Normocephalic and atraumatic. Right Ear: Tympanic membrane and ear canal normal. Left Ear: Tympanic membrane and ear canal normal. Mouth/Throat: Oropharynx is clear and moist. Eyes: Conjunctivae are normal. Nose: Normal. Neck: Normal range of motion. Neck supple. Cardiovascular: Normal rate and regular rhythm. Pulmonary/Chest: Effort normal and breath sounds normal. No respiratory distress. No wheezes. Patient has no rales. Abdominal: Soft. Bowel sounds are normal. Patient exhibits no distension. There is generalized tenderness with palpation, does seem to be worse in the right upper quadrant and epigastric region. No rebound or guarding, no hepatosplenomegaly. No CVA tenderness with palpation. Neurological: Patient is alert. Skin: Skin is warm and dry. No erythema or rash present. No lower extremity edema or calf tenderness with palpation. Procedures none. Results for orders placed or performed during the hospital encounter of 10/17/16 Complete Blood Count W/Diff (CBC) Result Value Ref Range White Blood Cell Count 13.8 (H) 3.8 - 11.0 k/cmm Red Blood Cell Count 4.67 3.70 - 5.20 m/cmm Hemoglobin 13.9 11.8 - 15.5 g/dL Hematocrit 40.3 35.0 - 46.0 % Mean Corpuscular Volume 86.3 80.0 - 100.0 fL RDW 12.9 11.0 - 15.0 % Platelet Count 379 140 - 450 k/cmm Hepatic Function Panel (HFPA) Result Value Ref Range Alk Phos 95 40 - 150 U/L Bilirubin Total 0.5 0.2 - 1.2 mg/dL Bilirubin, Direct 0.2 0.0 - 0.5 mg/dL Protein Total, Serum 7.6 6.4 - 8.3 g/dL Albumin 4.3 3.4 - 5.0 g/dL Aspartate Aminotransferase 179 (H) 10 - 40 U/L Alanine Aminotransferase 113 (H) 9 - 55 U/L Lipase (LIPAS) Result Value Ref Range Lipase 42 8 - 78 U/L Urinalysis Routine(Micro If Pos) (UR) Result Value Ref Range Urine Type URINE:clean cat Turbidity Sl Cloudy (A) Clear U BILI Negative Negative Blood Urine Negative Neg - Trace Glucose, Qualitative U Negative Neg-30 mg/dL Ketones Negative Negative Leukocyte Esterase Urine Negative Negative Nitrite Urine Negative Negative pH Urine 6.0 5.0 - 8.0 Protein Urine Negative Neg - Trace mg/dL U Specific [place] 1.010 1.005 - 1.030 Urobilinogen Urine Negative Negative Eu/dL Test Screen Urine (UPREG) Result Value Ref Range Urine Test Negative Differential Result Value Ref Range Absolute Neutrophils 10.6 (H) 1.8 - 8.0 k/cmm Absolute Lymphocytes 1.9 1.1 - 4.0 k/cmm Absolute Monocytes 1.1 (H) 0.2 - 0.8 k/cmm Absolute Eosinophils 0.1 0.0 - 0.5 k/cmm Absolute Basophils 0.1 0.0 - 0.2 k/cmm Urine Microscopic Result Value Ref Range Urine WBC 0-2 0 - 4 /HPF Urine RBC 0-2 0 - 2 /HPF Epithelial Cells Few /HPF Us Abd Ruq Organs Result Date: 10/17/2016 COMPARISON: None. FINDINGS: Pancreas: Partially obscured by bowel gas; visualized portions WNL. Liver: Contour appears unremarkable. Parenchyma appears unremarkable. Gallbladder: There are echogenic shadowing gallstones within the gallbladder. No gallbladder wall thickening or pericholecystic fluid. Afew low- level echoes are seen within the gallbladder compatible with sludge.. Sonographic Gonzalez's Sign: No. CBD: 0.4 cm. Right Kidney: Measures 10.4 x 4.0 x 4.3 cm. Appears unremarkable. Ascites: None. IMPRESSION: 1. Subcentimeter gallstones along with a small amount of sludge within the gallbladder. No gallbladder wall thickening, pericholecystic fluid, positive sonographic Gonzalez's sign, or other sonographic evidence for acute cholecystitis. 2. No biliary dilatation. 3. The liver has an unremarkable echotexture. Xr Abd Flat And Upright Result Date: 10/17/2016 COMPARISON: None. FINDINGS: Prominent stool in the nondistended right colon. No significant bowel dilatation or air-fluid levels. Overall nonspecific, nonobstructive bowel gas pattern. No giorgio free air or pneumatosis intestinalis. Lung bases clear. Assessment: The primary encounter diagnosis was Symptomatic cholelithiasis. A diagnosis of Generalized abdominalpain was also pertinent to this visit. symptomatic cholelithiasis confirmed on ultrasound, no signs of any acute cholecystitis at this time. Slight leukocytosis and mildly elevated LFTs as above. Minimal improvement after GI cocktail today. MDM Plan: Surgery consult ordered, information provided. Patient will try to arrange this for sometime next week. See discharge instructions for further recommendations. Low-fat diet in the meantime. Symptomatic cares for now. Jers-sau-akbsfod analgesics as directed as needed. If acutely worsens, to emergency department. Warning signs and symptoms discussed. John Guillen MD documented in this encounter Plan of Treatment Scheduled Referrals Name Type Priority Associated Diagnoses Order S chedule Surgery Referral Routine Symptomatic cholelithiasis O rdered: 10/17/2016 Consult-Adults documented as of this encounter Procedures Procedure Name Priority Date/Time Associated Diagnosis Comme nts XR ABD FLAT AND Routine 10/17/2016 6:17 PM Generalized Result s for this UPRIGHT CDT abdominal pain procedure are in the results section. COMPLETE BLOOD STAT 10/17/2016 5:39 PM Generalized Results for this COUNT-W/DIFF CDT abdominal pain procedure are in the results section. LIVER PANEL(HEPATIC STAT 10/17/2016 5:39 PM Generalized Re sults for this FUNCTION PANEL) CDT abdominal pain procedure are in the results section. DIFFERENTIAL STAT 10/17/2016 5:39 PM Results f or this CDT procedure are i n the results section. LIPASE STAT 10/17/2016 5:39 PM Generalized Results f or this CDT abdominal pain procedure are in the results section. URINE MICROSCOPIC STAT 10/17/2016 5:20 PM Resu lts for this CDT procedure are i n the results section. URINALYSIS STAT 10/17/2016 5:20 PM Generalized Results f or this ROUTINE(MICRO IF POS) CDT abdominal pain proc edure are in the results section. TEST STAT 10/17/2016 5:20 PM Generalized Results for this (URINE) CDT abdominal pain procedure are in the [...] an unremarkable echotex ture. John Guillen MD RAD US XR Abd Flat And Upright (10/17/2016 6:17 [...] bases clear. John Guillen MD RAD GD (ABNORMAL) Differential (10/17/2016 5:39 PM CDT) [facility] g[facility] Method Time Signature Absolute 10.6 (H) 1.8 - 8.0 PN SOFT Neutrophils k/cmm Absolute 1.9 1.1 - 4.0 PN SOFT Lymphocytes k/cmm Absolute 1.1 (H) 0.2 - 0.8 PN SOFT Monocytes k/cmm Absolute 0.1 0.0 - 0.5 PN SOFT Eosinophils k/cmm Absolute 0.1 0.0 - 0.2 PN SOFT Basophils k/cmm Specimen Anatomical Collection Method Collection Time Receive d Time (Source) Location / / Volume Laterality 10/17/2016 5:39 PM 7 5:39 CDT PM CDT Narrative PN SOFT - 10/17/2016 5:42 PM CDT Performed at [facility], [address] [place] [address] ??[id number] CLIA# [id number] John Guillen MD LAB_1 Performing Organization Address City/[facility]/ZIP Code Phon e Number PN SOFT [address] [place] [address] Lipase (LIPAS) (10/17/2016 5:39 PM CDT) P athologist Signature Lipase 42 8 - 78 U/L PN SOFT Specimen Anatomical Collection Method Collection Time Receive d Time (Source) Location / / Volume Laterality 10/17/2016 5:39 PM 7 5:39 CDT PM CDT Narrative PN SOFT - 10/17/2016 6:02 PM CDT Performed at [facility], [address] [place] [address] ??[id number] CLIA# [id number] John Guillen MD LAB_1 Performing Organization Address City/[facility]/ZIP Code Phon e Number PN SOFT [address] [place] [address] (ABNORMAL) Hepatic Function Panel (HFPA) (10/17/2016 5:39 PM CDT) Patholo gist Method Time Signature Alk Phos 95 40 - 150 PN SOFT U/L Bilirubin Total 0.5 0.2 - 1.2 PN SOFT mg/dL Bilirubin, Direct 0.2 0.0 - 0.5 PN SOFT mg/dL Protein Total, Serum 7.6 6.4 - 8.3 PN SOFT g/dL Albumin 4.3 3.4 - 5.0 PN SOFT g/dL Aspartate 179 (H) 10 - 40 PN SOFT Aminotransferase U/L Alanine 113 (H) 9 - 55 PN SOFT Aminotransferase U/L Specimen Anatomical Collection Method Collection Time Receive d Time (Source) Location / / Volume Laterality 10/17/2016 5:39 PM 7 5:39 CDT PM CDT Narrative PN SOFT - 10/17/2016 6:02 PM CDT Performed at [facility], [address] [place] [address] ??[id number] CLIA# [id number] John Guillen MD LAB_1 Performing Organization Address City/[facility]/ZIP Code Phon e Number PN SOFT [address] [place] [address] (ABNORMAL) Complete Blood Count W/Diff (CBC) (10/17/2016 5:39 PM CDT) Patholo gist Method Time Signature White Blood Cell 13.8 (H) 3.8 - 11.0 PN SOFT Count k/cmm Red Blood Cell 4.67 3.70 - PN SOFT Count 5.20 m/cmm Hemoglobin 13.9 11.8 - PN SOFT 15.5 g/dL Hematocrit 40.3 35.0 - PN SOFT 46.0 % Mean Corpuscular 86.3 80.0 - PN SOFT Volume 100.0 fL RDW 12.9 11.0 - PN SOFT 15.0 % Platelet Count 379 140 - 450 PN SOFT k/cmm Specimen Anatomical Collection Method Collection Time Receive d Time (Source) Location / / Volume Laterality 10/17/2016 5:39 PM 7 5:39 CDT PM CDT Narrative PN SOFT - 10/17/2016 5:42 PM CDT Performed at [facility], [address] [place] [address] ??[id number] IA# [id number] John Guillen MD LAB_1 Performing Organization Address [facility]/ZIP Code Phon e Number PN SOFT [address] [place] [address] [phone] Urine Microscopic (10/17/2016 5:20 PM CDT) P athologist Signature Urine WBC 0-2 0 - 4 /HPF PN SOFT Urine RBC 0-2 0 - 2 /HPF PN SOFT Epithelial Cells Few /HPF PN SOFT Specimen Anatomical Collection Method Collection Time Receive d Time (Source) Location / / Volume Laterality 10/17/2016 5:20 PM 7 5:41 CDT PM CDT Narrative PN SOFT - 10/17/2016 5:59 PM CDT Performed at [facility], [address] [place] [address] ??[id number] CLIA# [id number] John Guillen MD LAB_1 Performing Organization Address City/[facility]/ZIP Code Phon e Number PN SOFT [address] [place] [address] Test Screen Urine (UPREG) (10/17/2016 5:20 PM CDT) athologist Signature Urine Negative PN SOFT Test Specimen Anatomical Collection Method Collection Time Receive d Time (Source) Location / / Volume Laterality Urine specimen 10/17/2016 5:20 PM 017 5:41 (specimen) CDT PM CDT Narrative PN SOFT - 10/17/2016 5:53 PM CDT Performed at [facility], [address] [place] [address] ??[phone] CLIA# [id number] John Guillen MD LAB_1 Performing Organization Address City/[facility]/ZIP Code Phon e Number PN SOFT [address] [place] [address] (ABNORMAL) Urinalysis Routine(Micro If Pos) (UR) (10/17/2016 5:20 PM CDT) [facility] gist Method Time Signature Urine Type URINE:clean PN SOFT cat Turbidity Sl Cloudy Clear PN SOFT (A) U BILI Negative Negative PN SOFT Blood Urine Negative Neg - Trace PN SOFT Glucose, Negative Neg-30 PN SOFT Qualitative U mg/dL Ketones Negative Negative PN SOFT Leukocyte Negative Negative PN SOFT Esterase Urine Nitrite Urine Negative Negative PN SOFT pH Urine 6.0 5.0 - 8.0 PN SOFT Protein Urine Negative Neg - Trace PN SOFT mg/dL U Specific 1.010 1.005 - PN SOFT [place] 1.030 Urobilinogen Negative Negative PN SOFT Urine Eu/dL Specimen Anatomical Collection Method Collection Time Receive d Time (Source) Location / / Volume Laterality Urine 10/17/2016 5:20 PM 7 5:41 CDT PM CDT Narrative PN SOFT - 10/17/2016 5:59 PM CDT Performed at [facility], [address] [place] [address] ??[phone] IA# [id number] John Guillen MD LAB_1 Performing Organization Address City/State/ZIP Code Phon e Number PN SOFT [address] [place] [address] documented in this encounter Visit Diagnoses Diagnosis Symptomatic cholelithiasis - Primary Calculus of gallbladder without mention of cholecystitis or obstruction Generalized abdominal pain Abdominal pain, generalized Generalized abdominal pain Abdominal pain, generalized Triage Assessment Note - Sondra Wheeler RN - 10/17/2016 4:57 PM CDT Pt states she has had abdominal pain since 3pm right side of abdomen mainly does radiate up the backworse on the left side. Pt states she did take Tylenol with no relief. Pt sates there is no positionthat makes it better. Pt denies urinary symptoms. Pt rates her pain 8/10. documented in this encounter Administered Medications Inactive Administered Medications - up to 3 most recent administrations Medication Order MAR Action Action Date Dose Rate Site aluminum-magnesium Given 10/17/2016 5:26 PM CDT 15 mL hydroxide-simethicone (MAALOX) 200-200-20 MG/5ML suspension 15 mL 15 mL, Oral, ONCE, On Thu10/17/16 at 1745, For 1 dose, Mix with 15 mL Viscous Lidocaine 2% for GI Cocktail lidocaine viscous (XYLOCAINE) 2 % oral liquid Given 5:26 PM CDT 15 mL 15 mL 15 mL, Oral, ONCE, On Thu10/17/16 at 1745, For 1 dose, Mix with Mylanta 15ml for GI Cocktail. documented in this encounter Active and Recently Administered Medications Times are shown in CDT. Scheduled Medication Order 10/15/2016 10/16/2016 10/17/2016 aluminum-magnesium hydroxide-simethicone (MAALOX) 200-200-20 MG/5ML suspension 15 mL (COMPLETED) 1726 (Given - Provid er: Sondra Wheeler RN) 15 mL, Oral, ONCE, Thu10/17/16 at 1745, For 1 dose, Mix with 15 mL Viscous Lidocaine 2% for GI Cocktail lidocaine viscous (XYLOCAINE) 2 % oral liquid 15 mL (COMPLETED) 1726 (Given - Provider: Sondra Wheeler RN) 15 mL, Oral, ONCE, Thu10/17/16 at 1745, For 1 dose, Mix with Mylanta 15ml for GI Cocktail. documented in this encounter Care Teams City Planner Relationship Specialty Start Date End Date Sharon Mijares MD PCP - General 07/30/10 [address] [place], [place] [id number] documented as of this encounter
--- OUTSIDE RECORDS SUMMARY | 2022-01-23 23:48 | XMS_ITS | Encounter Summary ---
:1985 Author Organization [email or web address] Address [address] [place] [address] Care Team Providers Name Role Phone Sharon Mijares MD Primary Care Provider [phone] Reason for Visit Reason Comments Routine Visit Encounter Details Date Type Department Care Team Description 06/26/2015 Routine [place] Ketan Rees Routin e Obstetrics/Gynecolo QUIQUE SOARES Visit gy [address], [address] [phone] Social History Tobacco Use Types Packs/Day Years Used Date Smoking Tobacco: Never Assessed Sex Assigned at Date Recorded Not on file documented as of this encounter Last Filed Vital Signs Vital Sign Reading Time Taken Comments Blood Pressure 115/78 06/26/2015 3:49 PM LINE ASSEMBLER AIRCRAFT Pulse 86 06/26/2015 3:49 PM LINE ASSEMBLER AIRCRAFT Temperature - - Respiratory Rate - - Oxygen Saturation - - Inhaled Oxygen Concentration - - Weight 80.5 kg (177 lb 6.4 oz) 06/26/2015 3:49 PM LINE ASSEMBLER AIRCRAFT Height 157.5 cm (5' 2) 06/26/2015 3:49 PM LINE ASSEMBLER AIRCRAFT Body Mass Index 32.45 06/26/2015 3:49 PM LINE ASSEMBLER AIRCRAFT documented in this encounter Progress Notes Cabrera, Ketan Kinney APRN, CNM - 06/29/2015 1:04 PM CST Subjective: 29 y.o. is being seen today for an add on visit. She was in L & D last night for r/o ROM, negative amnisure, no other testing done. She reports occasional discharge, not need to use a pad, not having continuous leaking. Sx of ROM reviewed, call with any. She denies vaginitis sx aswell. She had a negative GC/CT, UA/UC and wet prep on 05/25/15. Active FM. No VB or ctx. She's noticed more pelvic pressure/back pain. Support belt given today. Objective: see flowsheet VE: negative pooling, negative nitrazine, small amount of normal appearing white discharge noted. Wet prep done. Assessment: at 32.3 weeks Vaginal discharge Plan: -Wet prep -Follow-up: 2 weeks/routine visit, prn ASSEMBLER AIRCRAFT documented in this encounter Plan of Treatment Not on filedocumented as of this encounter Procedures Procedure Name Priority Date/Time Associated Diagnosis Comme nts WET PREP Routine 06/26/2015 4:31 PM Discharge from the Res ults for this LINE ASSEMBLER AIRCRAFT vagina procedure are i n the results section . documented in this encounter Results (ABNORMAL) WET PREP (06/26/2015 4:31 PM LINE ASSEMBLER AIRCRAFT) [facility] Method Time Signature WETPR White Many (A) None Seen - HP CONVERSION Blood Cells Moderate WETPR Many HP CONVERSION Epithelial Cells WETPR Yeast None Seen None Seen - HP CONVERSION Rare WETPR None Seen None Seen HP CONVERSION Trichomonas WETPR Clue None Seen None Seen - HP CONVERSION Cells Few Wet Prep Source Cervix/Va HP CONVERSION ginal: Specimen Anatomical Collection Method Collection Time Receive d Time (Source) Location / / Volume Laterality 06/26/2015 4:31 PM 6 4:41 LINE ASSEMBLER AIRCRAFT PM LINE ASSEMBLER AIRCRAFT Narrative HP CONVERSION - 06/26/2015 4:47 PM LINE ASSEMBLER AIRCRAFT Performed at [facility], [address] [place] [address] CLIA number [id number] Ketan Rees APRN, CNM LAB_1 Performing Organization Address City/State/ZIP Code Phon e Number HP CONVERSION documented in this encounter Visit Diagnoses Diagnosis Encounter for supervision of normal firs t in third trimester - Primary Supervision of normal first Discharge from the vagina Leukorrhea, not specified as infective Back pain in Other specified complication of pregnanc y, unspecified as to episode of care documented in this encounter Care Teams Agricultural Plow Operator Relationship Specialty Start Date End Date Sharon Mijares MD PCP - General 07/30/10 [address] [place] [address] documented as of this encounter
--- OUTSIDE RECORDS SUMMARY | 2022-01-23 23:49 | XMS_ITS | Encounter Summary ---
:1985 Author Organization [facility] Address [address], [place] [address] Care Team Providers Name Role Phone Sharon Mijares MD Primary Care Provider [phone] Encounter Details Date Type Department Care Team Description 05/25/2015 Lab Visit [facility] Laboratory PN Women' s Dysuria Srv [address] [facility], [address] [place], [place] [phone] Social History Tobacco Use Types Packs/Day Years Used Date Smoking Tobacco: Never Assessed Sex Assigned at Date Recorded Not on file documented as of this encounter Plan of Treatment Not on filedocumented as of this encounter Procedures Procedure Name Priority Date/Time Associated Comments Diagnosis URINALYSIS Routine 05/25/2015 9:54 AM Dysuria Results f or this ROUTINE(MICRO IF FOOD AND BEVERAGE ATTENDANT procedure a re in POS) the results section. URINE CULTURE Routine 05/25/2015 9:54 AM Dysuria Results for this FOOD AND BEVERAGE ATTENDANT procedure are i n the results section. documented in this encounter Results Urine Culture (05/25/2015 9:54 AM FOOD AND BEVERAGE ATTENDANT) [facility] gist Method Time Signature Source Urine HP CONVERSION Site clean catch HP CONVERSION Urine Culture No Growth HP CONVERSION After 1 Day Specimen (Source) Anatomical Collection Method Collection Time Re ceived Time Location / / Volume Laterality Urine:clean catch 05/25/2015 9:54 AM FOOD AND BEVERAGE ATTENDANT Narrative HP CONVERSION - 05/26/2015 12:57 PM FOOD AND BEVERAGE ATTENDANT Performed at [facility], [address] [place] [address], CLIA Number [id number] Ketan Rees APRN, CNM LAB_1 Performing Organization Address City/[facility] Code Phon e Number HP CONVERSION URINALYSIS ROUTINE(MICRO IF POS) (05/25/2015 9:54 AM FOOD AND BEVERAGE ATTENDANT) [facility] Method Time Signature Urine Type Urine:clean HP CONVERSION cat Turbidity Clear Clear HP CONVERSION U BILI Negative Negative HP CONVERSION Blood Urine Negative Negative HP CONVERSION Glucose, Negative Neg-30 HP CONVERSION Qualitative U mg/dL Ketones Negative Negative HP CONVERSION Leukocyte Negative Negative HP CONVERSION Esterase Urine Nitrite Urine Negative Negative HP CONVERSION pH Urine 7.0 5.0 - 8.0 HP CONVERSION Protein Urine Negative Neg - Trace HP CONVERSION mg/dL U Specific 1.015 1.005 - HP CONVERSION [place] 1.030 Urobilinogen Negative Negative HP CONVERSION Urine Eu/dL Specimen Anatomical Collection Method Collection Time Receive d Time (Source) Location / / Volume Laterality Urine: 05/25/2015 9:54 AM 6 9:54 FOOD AND BEVERAGE ATTENDANT AM FOOD AND BEVERAGE ATTENDANT Narrative HP CONVERSION - 05/25/2015 10:01 AM FOOD AND BEVERAGE ATTENDANT Performed at [place] [address], [address] [place] [phone] CLIA number [id number] Ketan Rese APRN, CNM LAB_1 Performing Organization Address [facility] Phon e Number HP CONVERSION documented in this encounter Visit Diagnoses Diagnosis Dysuria documented in this encounter Care Teams Pizza [employer] Assistant Relationship Specialty Start Date End Date Sharon Mijares MD PCP - General 07/30/10 [address] [place] [address] documented as of this encounter
--- OUTSIDE RECORDS SUMMARY | 2022-01-23 23:49 | XMS_ITS | Encounter Summary ---
:1985 Author Organization [email or web address] Address [address], [place] [address] Care Team Providers Name Role Phone Sharon Mijares MD Primary Care Provider [phone] Encounter Details Date Type Department Care Team Description 04/12/2015 [facility] [place] [facility] Specialty En counter for supervision of normal first in second trimester (Primary Dx); Center - Ultrasound Encounter for supervision of normal first in first trimester [address] [place], [place] [address] Social History Tobacco Use Types Packs/Day Years Used Date Smoking Tobacco: Never Assessed Sex Assigned at Date Recorded Not on file documented as of this encounter Plan of Treatment Not on filedocumented as of this encounter Procedures Procedure Name Priority Date/Time Associated Diagnosis Comme [facility] US OB FOLLOW-UP FOR Routine 04/12/2015 9:24 AM Encounter for R esults for this ANATOMY SINGLE FOOD SERVICES COORDINATOR supervision of procedure a re in normal first the results in first section. trimester documented in this encounter Results US OB Follow-Up For Anatomy Single (04/12/2015 9:24 AM FOOD SERVICES COORDINATOR) Anatomical Region Laterality Modality Pelvis Other Specimen (Source) Anatomical Location Collection Method / Collectio n Time Received Time / Laterality Volume Narrative 04/12/2015 9:33 AM FOOD SERVICES COORDINATOR COMPARISON: ??03/29/2015 FINDINGS: ??A follow-up OB ultrasound wa s performed. Transabdominal imaging was performed. Type of Gestation: ??Sanchez. Presentation: VERTEX Movement Present: ??Yes ?? Cardiac Rate: 143 bpm and is regular Amniotic Fluid: Normal. Placental Position: ??POSTERIOR. Normal. LIMITED ANATOMIC SURVEY RESULTS: ??Persi stent suboptimal visualization of the ventricular outflow tracts. Consider echocardiogram within 7-10 days. Procedure Note Yon Ellis, DO - 10/14/2015For matting of this note might be different from the original. COMPARISON: 03/29/2015 FINDINGS: A follow-up OB ultrasound was performed. Transabdominal imaging was performed. Type of Gestation: Sanchez. Presentation: VERTEX Movement Present: Yes Cardiac Rate: 143 bpm and is regular Amniotic Fluid: Normal. Placental Position: POSTERIOR. Normal. LIMITED ANATOMIC SURVEY RESULTS: Persist ent suboptimal visualization of the ventricular outflow tracts. Consider echocardiogram within 7-10 days. Harkia Mcintyre Covert MD WOLF documented in this encounter Visit Diagnoses Diagnosis Encounter for supervision of normal firs t in second trimester - Primary Supervision of normal first Encounter for supervision of normal firs t in first trimester Supervision of normal first documented in this encounter Care Teams Warehouse Specialist Relationship Specialty Start Date End Date Sharon Mijares MD PCP - General 07/30/10 [address] [place] [address] documented as of this encounter
--- OUTSIDE RECORDS SUMMARY | 2022-01-23 23:49 | XMS_ITS | Encounter Summary ---
:1987 Author Organization [facility] Address [address], [place] [address] Care Team Providers Name Role Phone Sharon Mijares MD Primary Care Provider [phone] Reason for Visit Reason Comments Routine Visit Encounter Details Date Type Department Care Team Description 05/24/2015 Routine Mcewen Covert, Harika Routine Obstetrics/Gynecolog SMD Visit y [address] [facility] [address] [place] [address] [address] [place] [phone] Social History Tobacco Use Types Packs/Day Years Used Date Smoking Tobacco: Never Assessed Sex Assigned at Date Recorded Not on file documented as of this encounter Last Filed Vital Signs Vital Sign Reading Time Taken Comments Blood Pressure 120/71 05/24/2015 8:58 AM ACCOUNT SUPPORT SPECIALIST Pulse 94 05/24/2015 8:58 AM ACCOUNT SUPPORT SPECIALIST Temperature - - Respiratory Rate - - Oxygen Saturation - - Inhaled Oxygen Concentration - - Weight 78 kg (172 lb) 05/24/2015 8:58 AM ACCOUNT SUPPORT SPECIALIST Height 157.5 cm (5' 2) 05/24/2015 8:58 AM ACCOUNT SUPPORT SPECIALIST Body Mass Index 31.46 05/24/2015 8:58 AM ACCOUNT SUPPORT SPECIALIST documented in this encounter Patient Instructions Patient InstructionsAntonella Richardson LPN - 05/24/2015 9:01 AM CST Thank you for choosing [facility] for your care. We recommend you review the following information in the book Preparing for Childbirth and additional materials: ?? Discomforts in ?? Information about the hospital where you plan to deliver ?? Caring for You and Your Baby (Information on selecting a [facility] provider) ?? Buckle Up Kids brochure ?? [place] Screening brochure ?? First Day Photo Remember to pre-register at the hospital where you plan to deliver. UNT SUPPORT SPECIALIST documented in this encounter Progress Notes Covert, Harika Mcintyre MD - 05/24/2015 10:21 AM CST OB Follow-up Visit S: Patient is here for routine care. Reports good movement, no uterine contractions. No vaginal bleeding or loss of fluid. Complaints/concerns: still having some occ headaches. better with fioricet. SOme discomfort with intercourse - concerned regarding yeast - allergic to topical OTC meds - request Rx for diflucan SOme lower back pain. O: See flowsheet A: 29 y.o. female at 27w5d weeks gestation. Patient Active Problem List Diagnosis ??? Teeth Loss Extraction ??? Headache ??? Encounter for supervision of normal first in first trimester ??? Exposure to genital herpes P: Return to clinic in 2 week(s). OGTT and Hgb today Tdap today [place] discomfort - Rx given - recommend OTC lubrication Labor precautions reviewed - taking labor classes in next couple weeks Headaches stable Harika Mcintyre Covert 9:13 AM UNT SUPPORT SPECIALIST documented in this encounter Plan of Treatment Not on filedocumented as of this encounter Visit Diagnoses Diagnosis Back pain in - Primary Other specified complication of pregnanc y, unspecified as to episode of care Exposure to genital herpes Contact with or exposure to other viral diseases Encounter for supervision of normal firs t in first trimester Supervision of normal first Encounter for supervision of normal firs t in third trimester Supervision of normal first Painful sexual intercourse Dyspareunia Need for Tdap vaccination Need for prophylactic vaccination with c ombined dcaswwnosu-sydjwbd-msoxsblgy (DTP) vaccine documented in this encounter Care Teams Perianesthesia Manager Relationship Specialty Start Date End Date Sharon Mijares MD PCP - General 07/30/10 [address] [place] [address] documented as of this encounter
--- OUTSIDE RECORDS SUMMARY | 2022-01-23 23:49 | XMS_ITS | Encounter Summary ---
:1987 Author Organization [facility] Address [address], [place] [address] Care Team Providers Name Role Phone Sharon Mijares MD Primary Care Provider Encounter Details Date Type Department Care Team Description 03/29/2015 Imaging [place] [facility] Encounter for supervision of [address] [facility] first in [address] first trimester [place], [place] [phone] Social History Tobacco Use Types Packs/Day Years Used Date Smoking Tobacco: Never Assessed Sex Assigned at Date Recorded Not on file documented as of this encounter Plan of Treatment Not on filedocumented as of this encounter Procedures Procedure Name Priority Date/Time Associated Diagnosis Comme nts US OB 20 WEEKS Routine 03/29/2015 10:12 AM Encounter for Resul ts for this COMPLETE SINGLE LODGING FACILITIES ATTENDANT supervision of procedure are in normal first the results in first section. trimester documented in this encounter Results US OB 20 Weeks Complete Single (03/29/2015 10:12 AM LODGING FACILITIES ATTENDANT) Anatomical Region Laterality Modality Pelvis Other Specimen (Source) Anatomical Location Collection Method / Collectio n Time Received Time / Laterality Volume Impressions 03/29/2015 10:19 AM LODGING FACILITIES ATTENDANT IMPRESSION: 1. Single living IUP vertex position 19 weeks 1 day gestation. 2. Incomplete anatomy survey relat salma to the heart as noted due to lie. Recommend repeat limited follow-up within the next week for completion of survey. Narrative 03/29/2015 10:19 AM LODGING FACILITIES ATTENDANT COMPARISON: ??None. ?? TECHNIQUE: A level 1 ultrasound was perf ormed. Transabdominal imaging was performed. FINDINGS: ??Type of Gestation: ??Singlet on. Presentation: vertex Movement Present: ??Yes ?? Cardiac Rate: 136 bpm and is regular Amniotic Fluid Volume: ??Normal Placental Position: ??posterior . Normal . Cervical Length (cm): ??3.2 ??normal ANATOMIC SURVEY RESULTS: ??Suboptimal im aging of the four-chamber heart and left and right ventricular outflow tracts due to the lie. Remainder of the anatomy survey was well visualized and within normal limits. ?? The anatomic survey includes assessment of: Cranium, Lateral Ventricles, Cerebellum, Cisterna Magna, Nuchal Fold, Face: Orbits, Upper Lip, Profile, Spine: Long C,T,L,S, Transverse Sacrum, Heart: 4 Chamb er View, M-Mode, Right ventricular outfl ow tract, Left ventricular outflow tract, Abdomen: Cord Insertion, 3-Vessel Cord, Bladder, Stomach, Diaphragm, Kidneys, Extremities: presence of arms and legs. Measurements (Source Hadlock): BPD: ??4.4 cm = 19w3d HC: 16.2 cm = 19w0d AC: ??13.4 cm = 18w6d FL: ??3.1 cm = 19w5d Anatomic Ratios: ??Within normal limits. Estimated Weight: No estimate when less than 24 weeks. ?? Other Findings: None. GA by LMP: ??19w5d GA by Prior US: ??19w2d GA by today's US: ??19w1d JAMIE by today's US: ??08-22-2015 Procedure Note Tyrese Gregory MD - 10/14/2015Formatti ng of this note might be different from the original. COMPARISON: None. TECHNIQUE: A level 1 ultrasound was perf ormed. Transabdominal imaging was performed. FINDINGS: Type of Gestation: Sanchez. Presentation: vertex Movement Present: Yes Cardiac Rate: 136 bpm and is regular Amniotic Fluid Volume: Normal Placental Position: posterior . Normal. Cervical Length (cm): 3.2 normal ANATOMIC SURVEY RESULTS: Suboptimal imag ing of the four-chamber heart and left and right ventricular outflow tracts due to the lie. Remainder of the anatomy survey was well visualized and within normal limits. The anatomic survey includes assessment of: Cranium, Lateral Ventricles, Cerebellum, Cisterna Magna, Nuchal Fold, Face: Orbits, Upper Lip, Profile, Spine: Long C,T,L,S, Transverse Sacrum, Heart: 4 Chamber View, M-Mode, Right ventricular outflow tract, Left ventricular outflow tract, Abdomen: Cord Insertion, 3-Vessel Cord, Bladder, Stomach, Diaphragm, Kidneys, Extremities: presence of arms and legs. Measurements (Source [place]lock): BPD: 4.4 cm = 19w3d HC: 16.2 cm = 19w0d AC: 13.4 cm = 18w6d FL: 3.1 cm = 19w5d Anatomic Ratios: Within normal limits. Estimated Weight: No estimate when less than 24 weeks. Other Findings: None. GA by LMP: 19w5d GA by Prior US: 19w2d GA by today's US: 19w1d JAMIE by today's US: 08-22-2015 IMPRESSION IMPRESSION: 1. Single living IUP vertex position 19 weeks 1 day gestation. 2. Incomplete anatomy survey relat salma to the heart as noted due to lie. Recommend repeat limited follow-up within the next week for completion of survey. Harika S Covert MD WOLF documented in this encounter Visit Diagnoses Diagnosis Encounter for supervision of normal firs t in first trimester Supervision of normal first documented in this encounter Care Teams Form Presser Relationship Specialty Start Date End Date Sharon Mijares MD PCP - General 07/30/10 [address] [place] [address] documented as of this encounter
--- OUTSIDE RECORDS SUMMARY | 2022-01-23 23:49 | XMS_ITS | Encounter Summary ---
:1987 Author Organization [facility] [employer] Address [address], [place] [address] Care Team Providers Name Role Phone Sharon Mijares MD Primary Care Provider [phone] Reason for Visit Reason Comments Symptoms Encounter Details Date Type Department Care Team Description 04/04/2015 Nurse Triage [facility] in[facility] Sharon Mijares, Symptoms [address] [address] [place] [address] [address] [phone] [place], [place] [address] (Wo rk) Social History Tobacco Use Types Packs/Day Years Used Date Smoking Tobacco: Never Assessed Sex Assigned at Date Recorded Not on file documented as of this encounter Nursing Notes Shahla Hart RN - 04/04/2015 8:17 AM CST Protocol: [id number] Affirmative: Colds with no complications Disposition of Home Care suggested. Noa bledsoe, she is 20 weeks with cold symptoms that started 2 1/2 weeks ago. No fever, no SOB, symptoms are not worsening. Advised adequate fluids, good handwashing, good nutrition and sleep. Needs appt if symptoms worsen or don't resolve. Advised no medications for cold HERMAL SHEET METAL WORKER Rochelle [place] RN - 04/04/2015 8:14 AM CST Left message for return call. HERMAL SHEET METAL WORKER Laureen Farmer - 04/04/2015 8:08 AM CST Pt states she is experiencing a cold/cough. States she is 20 weeks . States to speak to nurse if she should come in for a check up. Please advise, Thank You. HERMAL SHEET METAL WORKER documented in this encounter Plan of Treatment Not on filedocumented as of this encounter Visit Diagnoses Not on filedocumented in this encounter Care Teams Director Post Relationship Specialty Start Date End Date Sharon Mijares MD PCP - General 07/30/10 [address] [place] [address] documented as of this encounter
--- OUTSIDE RECORDS SUMMARY | 2022-01-23 23:49 | XMS_ITS | Encounter Summary ---
:[address] [address] [facility] Address [address], [place] [address] Care Team Providers Name Role Phone Sharon Mijares MD Primary Care Provider [phone] Reason for Visit Reason Comments Dysuria Encounter Details Date Type Department Care Team Description 05/25/2015 Nurse Triage Ketan Garcia, BARREL CLEANER, Dysu reilly Obstetrics/Gynecolog y [address], [address] [place] [address] [address] [place] [address] [place], [place] [phone] (Wo rk) [phone] Social History Tobacco Use Types Packs/Day Years Used Date Smoking Tobacco: Never Assessed Sex Assigned at Date Recorded Not on file documented as of this encounter Nursing Notes Ree De Dios RN - 05/25/2015 9:16 AM CST Pt had her obck yesterday and given rx for possible yeast infection. Now she thinks she has a uti rather than yeast infection. Increased vdg during the night and now it is burning. Scheduled with Ketan today. Will stop in lab first and give urine sample. PING CAR CONDUCTOR documented in this encounter Plan of Treatment Not on filedocumented as of this encounter Visit Diagnoses Not on filedocumented in this encounter Care Teams Cafeteria Team Leader Relationship Specialty Start Date End Date Sharon Mijares MD PCP - General 07/30/10 [address] [place] [address] documented as of this encounter
--- OUTSIDE RECORDS SUMMARY | 2022-01-23 23:49 | XMS_ITS | Encounter Summary ---
:1985 Author Organization [facility] Address [address], [place] [address] Care Team Providers Name Role Phone Sharon Mijares MD Primary Care Provider [phone] Reason for Visit Reason Comments Routine Visit Encounter Details Date Type Department Care Team Description 03/29/2015 Routine Harika Lucas Routine Obstetrics/Gynecolog MD Miguelina Visit y [address] [facility] [address] [address] [address] [place] [phone] Social History Tobacco Use Types Packs/Day Years Used Date Smoking Tobacco: Never Assessed Sex Assigned at Date Recorded Not on file documented as of this encounter Last Filed Vital Signs Vital Sign Reading Time Taken Comments Blood Pressure 107/71 03/29/2015 10:34 AM CADMIUM PLATER Pulse 93 03/29/2015 10:34 AM CADMIUM PLATER Temperature - - Respiratory Rate - - Oxygen Saturation - - Inhaled Oxygen Concentration - - Weight 74.8 kg (165 lb) 03/29/2015 10:34 AM CADMIUM PLATER Height 157.5 cm (5' 2) 03/29/2015 10:34 AM CADMIUM PLATER Body Mass Index 30.18 03/29/2015 10:34 AM CADMIUM PLATER documented in this encounter Progress Notes Covert, Harika Mcintyre MD - 03/29/2015 12:44 PM CST OB Follow-up Visit S: Patient is here for routine care. Reports not feeling movement yet , nouterine contractions. No vaginal bleeding or loss of fluid. Complaints/concerns: doing well. . O: See flowsheet Level 1 scan normal but did not see all images A: 29 y.o. female at 19w5d weeks gestation. Patient Active Problem List Diagnosis ??? Teeth Loss Extraction ??? Headache ??? Encounter for supervision of normal first in first trimester ??? Exposure to genital herpes P: Return to clinic in 4 week(s). - REscan in 1-2 weeks Follow up in 4 weeks Harika Mcintyre Covert 10:52 AM IUM PLATER documented in this encounter Plan of Treatment Not on filedocumented as of this encounter Visit Diagnoses Diagnosis Encounter for supervision of normal firs t in first trimester - Primary Supervision of normal first Exposure to genital herpes Contact with or exposure to other viral diseases Encounter for supervision of normal firs t in second trimester Supervision of normal first documented in this encounter Care Teams Vault Person Relationship Specialty Start Date End Date Sharon Mijares MD PCP - General 07/30/10 [address] [place] [address] documented as of this encounter
--- OUTSIDE RECORDS SUMMARY | 2022-01-23 23:49 | XMS_ITS | Encounter Summary ---
:1985 Author Organization [facility] Address [address] [place] [address] Care Team Providers Name Role Phone Sharon Mijares MD Primary Care Provider [phone] Reason for Visit Reason Comments Routine Visit Encounter Details Date Type Department Care Team Description 03/01/2015 Routine [place] Ketan Rees Routin e Obstetrics/Gynecolo QUIQUE SOARES Visit gy [address], [address] [phone] Social History Tobacco Use Types Packs/Day Years Used Date Smoking Tobacco: Never Assessed Sex Assigned at Date Recorded Not on file documented as of this encounter Last Filed Vital Signs Vital Sign Reading Time Taken Comments Blood Pressure 105/76 03/01/2015 10:08 AM FULL CHARGE BOOKKEEPER Pulse 79 03/01/2015 10:08 AM FULL CHARGE BOOKKEEPER Temperature - - Respiratory Rate - - Oxygen Saturation - - Inhaled Oxygen Concentration - - Weight 71.8 kg (158 lb 4.8 oz) 03/01/2015 10:08 AM FULL CHARGE BOOKKEEPER Height 157.5 cm (5' 2) 03/01/2015 10:08 AM FULL CHARGE BOOKKEEPER Body Mass Index 28.95 03/01/2015 10:08 AM FULL CHARGE BOOKKEEPER documented in this encounter Progress Notes Cabrera, Ketan Kinney APRN, CNM - 03/01/2015 10:37 AM CST Subjective: 29 y.o. is being seen today for her routine visit. She is doing OK, a GI bug is going through her house and she was seen in UC yesterday. She has a 5 yr old step son, he was sick as well. Her UC was negative and overall her GI sx are improving. She's had issues with nausea/vomiting inthis before, recently having issues with diarrhea for the past few days as well. She has zofran if needed. She is able to eat/drink, voiding well. No severe diarrhea. No cramping today. Able to eat oatmeal today without issue. No chills, fevers or other pain. No LOF or VB. She denies vaginitis or UTI sx. BRAT diet reviewed, call if unable to eat/drink for 24 hrs, prn. Routine scan with next visit. She declines the quad screen. She has a hx of migraines, has rx for fioricet if needed. Objective: see flowsheet Assessment: at 15.5 weeks Plan: -OB ultrasound with next visit -Quad screen discussed: declined -BRAT diet -Follow up: 4 weeks, prn CHARGE BOOKKEEPER documented in this encounter Plan of Treatment Not on filedocumented as of this encounter Visit Diagnoses Diagnosis Encounter for supervision of normal firs t in second trimester - Primary Supervision of normal first Abdominal pain, unspecified abdominal lo cation documented in this encounter Care Teams State Historical Society Director Relationship Specialty Start Date End Date Sharon Mijares MD PCP - General 07/30/10 [address] [place] [address] documented as of this encounter
--- OUTSIDE RECORDS SUMMARY | 2022-01-23 23:49 | XMS_ITS | Encounter Summary ---
:1985 Author Organization [facility] Address [address] [place] [address] Care Team Providers Name Role Phone Sharon Mijares MD Primary Care Provider [phone] Reason for Visit Reason Comments Routine Visit Encounter Details Date Type Department Care Team Description 05/25/2015 Routine [place] Ketan Rees Routin e Obstetrics/Gynecolo QUIQUE SOARES Visit gy [address], [address] [phone] Social History Tobacco Use Types Packs/Day Years Used Date Smoking Tobacco: Never Assessed Sex Assigned at Date Recorded Not on file documented as of this encounter Last Filed Vital Signs Vital Sign Reading Time Taken Comments Blood Pressure 110/71 05/25/2015 10:14 AM DECK OFFICER Pulse 87 05/25/2015 10:14 AM DECK OFFICER Temperature - - Respiratory Rate - - Oxygen Saturation - - Inhaled Oxygen Concentration - - Weight 78.2 kg (172 lb 6.4 oz) 05/25/2015 10:14 AM DECK OFFICER Height 157.5 cm (5' 2) 05/25/2015 10:14 AM DECK OFFICER Body Mass Index 31.53 05/25/2015 10:14 AM DECK OFFICER documented in this encounter Progress Notes Cabrera, Ketan Kinney APRN, CNM - 05/28/2015 7:49 AM CST Subjective: 29 y.o. is being seen today for an add on visit. See phone note. She reports some burning with urination, wondering about a UTI. Her partner has HSV, no dx with pt. She denies any constant pain or burning, no lesions. She was treated for a yeast infection a few days ago and took diflucan. She denies vaginal odor with itching, odor or burning. Her UA from today is negative, results reviewed with pt. She denies any odor, blood or cloudiness with urine. Active FM. She denies LOF or VB. Her GCT was 139, pt still needs to do GTT and she agrees to schedule. Objective: see flowsheet VE: External genitalia WNL, no lesions or excoriations. Moderate amount of milky discharge noted. Wet prep and GC/CT. Assessment: at 27.6 weeks Plan: -GTT -Wet prep, GC/CT -Follow up: 2 weeks, prn OFFICER documented in this encounter Plan of Treatment Not on filedocumented as of this encounter Procedures Procedure Name Priority Date/Time Associated Diagnosis Comme nts WET PREP Routine 05/25/2015 11:08 AM Vaginal burning Resul ts for this DECK OFFICER procedure are i n the results section. CHLAMYDIA & GC (14 Routine 05/25/2015 11:08 AM Vaginal burning Results for this YEARS AND OLDER) DECK OFFICER procedure a re in the results section. documented in this encounter Results Chlamydia & GC (05/25/2015 11:08 AM DECK OFFICER) [facility] Method Time Signature Chlamydia Negative Negative HP CONVERSION Trachomatis STD Comment: Test Performed by Plant Anatomist Mediated Amplification CLIA Number [id number] N. gonorrhoeae STD Negative Negative HP CONVERSI ON Comment: Test Performed by Plant Anatomist Mediated Amplification Performed at [facility], [address] [place] [id number] CLIA Number [id number] Source STD Cervix HP CONVERSION Comment: CLIA Number [id number] Specimen Anatomical Collection Method Collection Time Receive d Time (Source) Location / / Volume Laterality 05/25/2015 11:08 05/25/2015 7:00 AM DECK OFFICER PM DECK OFFICER Ketan Rees APRN, QUIQUE LAB_1 Performing Organization Address [facility] Phon e Number HP CONVERSION WET PREP (05/25/2015 11:08 AM DECK OFFICER) [facility] Method Time Signature WETPR White Moderate None Seen - HP CONVERSION Blood Cells Moderate WETPR Moderate HP CONVERSION Epithelial Cells WETPR Yeast None Seen None Seen - HP CONVERSION Rare WETPR None Seen None Seen HP CONVERSION Trichomonas WETPR Clue None Seen None Seen - HP CONVERSION Cells Few Wet Prep Source Cervix/Vagin HP CONVERSI ON al: Specimen Anatomical Collection Method Collection Time Receive d Time (Source) Location / / Volume Laterality 05/25/2015 11:08 05/25/2015 AM DECK OFFICER 11:13 AM DECK OFFICER Narrative HP CONVERSION - 05/25/2015 11:21 AM DECK OFFICER Performed at [facility], [address] [address] CLIA number [id number] Ketan Rees APRN, QUIQUE LAB_1 Performing Organization Address [facility] Phon e Number HP CONVERSION documented in this encounter Visit Diagnoses Diagnosis Vaginal burning - Primary Other specified symptom associated with female genital organs documented in this encounter Care Teams Stoker Installer Relationship Specialty Start Date End Date Sharon Mijares MD PCP - General 07/30/10 [address] [place] [address] documented as of this encounter
--- OUTSIDE RECORDS SUMMARY | 2022-01-23 23:49 | XMS_ITS | Encounter Summary ---
:1985 Author Organization [facility] Address [address], [place] [address] Care Team Providers Name Role Phone Sharon Mijares MD Primary Care Provider [phone] Encounter Details Date Type Department Care Team Description 05/28/2015 Lab Visit [facility] glucose Speciality Center - complica ting Laboratory [address] [place], [place] [address] Social History Tobacco Use Types Packs/Day Years Used Date Smoking Tobacco: Never Assessed Sex Assigned at Date Recorded Not on file documented as of this encounter Progress Notes Jany Giraldo RN - 05/29/2015 9:04 AM JUVENILE DETENTION OFFICER Quick Note: see encounter NILE DETENTION OFFICER documented in this encounter Miscellaneous Notes Miscellaneous - 06/04/2016 10:22 PM CSTNotes Recorded by Jany Giraldo RN on 05/29/2015 at 9:04 AMsee encounter NILE DETENTION OFFICER documented in this encounter Plan of Treatment Not on filedocumented as of this encounter Procedures Procedure Name Priority Date/Time Associated Diagnosis Comme nts GTT 2HR ORAL Routine 05/28/2015 8:46 AM Abnormal glucose Resul ts for this GESTATIONAL JUVENILE DETENTION OFFICER complicating procedure are i n the results section. documented in this encounter Results GTT 2HR ORAL GESTATIONAL (05/28/2015 8:46 AM JUVENILE DETENTION OFFICER) [facility] Method Time Signature Glucose, Fasting 76 mg/dL HP CONVERSION Glucose, GTT - 1 130 mg/dL HP CONVERSION Hour Glucose, GTT - 2 106 mg/dL HP CONVERSION Hour Glucose see below HP CONVERSION Tolerance Gestational Interp Comment: Glucose data are non-diagnostic for Gest ational Diabetes. The diagnosis of GDM is made when any of the following plasma glucose values ARE EQUAL TO OR EX CEED: Fasting: >=92 mg/dl 1 h: >=180 mg/dl 2 h: >=153 mg/dl Specimen Anatomical Collection Method Collection Time Receive d Time (Source) Location / / Volume Laterality 05/28/2015 8:46 AM 6 8:46 JUVENILE DETENTION OFFICER AM JUVENILE DETENTION OFFICER Narrative HP CONVERSION - 05/28/2015 3:58 PM JUVENILE DETENTION OFFICER Performed at [facility], [address] [place] [address] IA# [id number] Transcriptions 06/04/2016 10:22 PM CSTNotes Recorded by Jany Giraldo RN on 05/29/2015 at 9:04 AMsee encounter Ketan Rees APRN, CNM LAB_1 Performing Organization Address City/State/ZIP Code Phon e Number HP CONVERSION documented in this encounter Visit Diagnoses Diagnosis Abnormal glucose complicating Abnormal maternal glucose tolerance, com plicating , childbirth, or the puerperium, unspecified as to episode of care documented in this encounter Care Teams Director Of Assessment Relationship Specialty Start Date End Date Sharon Mijaers MD PCP - General 07/30/10 [address] [place] [address] documented as of this encounter
--- OUTSIDE RECORDS SUMMARY | 2022-01-23 23:49 | XMS_ITS | Encounter Summary ---
:1985 Author Organization [facility] Address [address], [place] [address] Care Team Providers Name Role Phone Sharon Mijares MD Primary Care Provider [phone] Reason for Visit Reason Comments LAB RESULTS Encounter Details Date Type Department Care Team Description 05/29/2015 Telephone Ketan Garcia APRN, LAB RESULTS Obstetrics/Gynecolog y [address], [address] [place] [phone] Social History Tobacco Use Types Packs/Day Years Used Date Smoking Tobacco: Never Assessed Sex Assigned at Date Recorded Not on file documented as of this encounter Nursing Notes Jany Giraldo RN - 05/29/2015 9:07 AM CST Pt. informed of results below per SO. Patient verbalizes understanding of instructions/plan. Component Latest Ref Rng 05/28/2015 Glucose, Fasting 76 Glucose, GTT - 1 Hour 130 Glucose, GTT - 2 Hour 106 Glucose Tolerance Gestational Interp see below [employer] BI[employer] SALES documented in this encounter Plan of Treatment Not on filedocumented as of this encounter Visit Diagnoses Not on filedocumented in this encounter Care Teams Bellows Charger Assembler Relationship Specialty Start Date End Date Sharon Mijares MD PCP - General 07/30/10 [address] [place] [address] documented as of this encounter
--- OUTSIDE RECORDS SUMMARY | 2022-01-23 23:49 | XMS_ITS | Encounter Summary ---
:1985 Author Organization [facility] Address [address], [place] [address] Care Team Providers Name Role Phone Sharon Mijares MD Primary Care Provider [phone] Encounter Details Date Type Department Care Team Description 05/25/2015 Notes/Orders Ketan Garcia, Dysuria (P rimary Dx) Obstetrics/Gynecolog y GRAPHIC DESIGNER, [address], [address] [place], [place] [address] [place] [id number] [phone] Social History Tobacco Use Types Packs/Day Years Used Date Smoking Tobacco: Never Assessed Sex Assigned at Date Recorded Not on file documented as of this encounter Plan of Treatment Not on filedocumented as of this encounter Visit Diagnoses Diagnosis Dysuria - Primary documented in this encounter Care Teams Software Quality Test Engineer Relationship Specialty Start Date End Date Sharon Mijares MD PCP - General 07/30/10 [address] [place] [address] documented as of this encounter
--- OUTSIDE RECORDS SUMMARY | 2022-01-23 23:49 | XMS_ITS | Encounter Summary ---
:1985 Author Organization [facility] Address [address], [place] [address] Care Team Providers Name Role Phone Sharon Mijares MD Primary Care Provider [phone] Reason for Visit Reason Comments Abdominal Pain Encounter Details Date Type Department Care Team Description 02/28/2015 Telephone [facility] Sharon Mijares, Abdominal Pain [address] [address] [place] [address] [address] [phone] [place], [place] [address] (Wo rk) Social History Tobacco Use Types Packs/Day Years Used Date Smoking Tobacco: Never Assessed Sex Assigned at Date Recorded Not on file documented as of this encounter Nursing Notes Cindy Sandoval RN - 02/28/2015 2:48 PM CST State she is 15 wks preg. See triage note from short time ago from OB. State that her son has been having upset stomach and diarrhea for the past couple weeks and today when she picked him up from school was noted he was in nursing office today for upset stomach. Also has had diarrhea for past4d. She is wondering if she should really be seen or is this a GI bug. Discuss that if son having [id number] he needs to be seen for evaluation, most likely her sx are similar to his but hate to assume viral during . State that they will both go to at this time. ING [place] Hoa Bess - 02/28/2015 2:39 PM CST Pt states she has stomach and lower back cramps and is uncertain if she should be seen. documented in this encounter Plan of Treatment Not on filedocumented as of this encounter Visit Diagnoses Not on filedocumented in this encounter Care Teams Surgical Attendant Relationship Specialty Start Date End Date Sharon Mijares MD PCP - General 07/30/10 [address] [place] [address] documented as of this encounter
--- OUTSIDE RECORDS SUMMARY | 2022-01-23 23:49 | XMS_ITS | Encounter Summary ---
:1985 Author Organization [employer] Address [address], [place] [address] Care Team Providers Name Role Phone Sharon Mijares MD Primary Care Provider Reason for Visit Reason Comments ABDOMINAL CRAMPS Encounter Details Date Type Department Care Team Description 02/28/2015 Hospital Encounter [facility] Alexey Felix , Abdominal pain Center Urgent Care during [address] [facility] (Primary Dx) [facility] [address] [address] [place], [place] [id number] Social History Tobacco Use Types Packs/Day Years Used Date Smoking Tobacco: Never Assessed Sex Assigned at Date Recorded Not on file documented as of this encounter Last Filed Vital Signs Vital Sign Reading Time Taken Comments Blood Pressure 166/77 02/28/2015 3:29 PM MANAGER OF DEVELOPMENT Pulse 85 02/28/2015 3:29 PM MANAGER OF DEVELOPMENT Temperature 36.6 ??C (97.9 ??F) 02/28/2015 3:29 PM MANAGER OF DEVELOPMENT Respiratory Rate 14 02/28/2015 3:29 PM MANAGER OF DEVELOPMENT Oxygen Saturation - - Inhaled Oxygen Concentration - - Weight - - Height - - Body Mass Index - - documented in this encounter Medications at Time of Discharge Medication Sig Dispensed Refills Start Date End Date butalbital-acetaminophen- Take 1 tablet by 30 tablet 0 01/2607/18/2015 caffeine (AKA FIORICET) mouth every 4 hours 50-325-40 MG tablet as needed for Headaches. [id number] OR Take 1 tablet by 30 tablet 1 015 04/26/2015 mouth at bedtime as needed for Sleep. magnesium hydroxide (MILK Take 5 mLs by mouth 0 1 06/21/2015 OF MAGNESIA) 400 MG/5ML daily (every 24 suspension hours). metoCLOPRAMIDE (AKA Take 1 tablet by 30 tablet 0 02/14/2015 03/01/2015 REGLAN) 10 MG tablet mouth 4 times daily (before meals and bedtime). ondansetron (AKA ZOFRAN) Take 4 mg by mouth 0 04/26/2015 4 MG tablet every 8 hours as needed for Nausea or Vomiting. 1-2 tablets as needed Indications: EXCESSIVE VOMITING IN Vit-Fe Take by mouth. 0 12/27/201403/29 Fumarate-FA ( OR) documented as of this encounter ED Notes Alexey Felix MD - 02/28/2015 5:19 PM CST CHIEF COMPLAINT Abdominal cramping SUBJECTIVE 29-year-old female, nonsmoker, 16 weeks gestation presents complaining of abdominal cramping radiating to her back starting 5 days ago. She complains of intermittent diarrhea but denies fever, chills, dysuria, hematuria, vaginal spotting or vaginal discharge. Patient was experiencing nauseousness with vomiting until 14 weeks gestation. She continues on Unisom and vitamin B6 at this time. Past medical history significant for migraines and surgery for wisdom tooth extraction. She does notuse tobacco, alcohol or other drugs. Patient is and she and her are expecting their first child. He has a 5-year-old son from a previous relationship. OBJECTIVE GENERAL: Alert, well-nourished, well-developed, gravid female in no obvious distress. VITALS: T. 36.6, BP 166/77, P. 85, R. 14 LUNGS: Normal and equal breath sounds. CARDIAC: Regular rate and rhythm with normal heart sounds. ABDOMEN: Gravid with heart tones in the normal range. Uterine fundus approximately 4 cm below the elbow like his. Uterus is nontender to palpation. Patient reported tenderness to palpation in theleft side of the abdomen without masses or organomegaly noted on palpation. No flank tenderness to palpation. LAB: 1) UA = normal ASSESSMENT 1. Abdominal cramping likely secondary to viral enteritis. PLAN 1. Clear liquid diet for 24 hours. 2. Followup appointment was ditch tender as planned. 3. Return immediately for worsening pain or vaginal spotting. documented in this encounter Miscellaneous Notes ED AVS Snapshot - Soren Arevalo MD - 02/28/2015 5:19 PM CST Images from the original note were not included. [facility] - URGENT CARE [address] [facility] [address] Dept: [phone] [email or web address] [facility] Salvador 02/28/2015 3:17 PM Hospital Encounter Description: Female : 1985 Department: [facility] - Urgent Care Dept Thank you for choosing [facility] for your health care visit with Alexey Felix MD. We are happy to care for you and provide this summary of your visit. Your primary rn wound care is currently listed as Sharon Mijares MD. HERE IS WHAT YOU NEED TO KNOW To learn how you can take steps to stay as healthy as you can be visit [email or web address] Discharge Instructions Follow a clear liquid diet for the next 24 hrs. HERE IS WHAT YOU NEED TO DO Call your clinic if: You develop new symptoms Your symptoms worsen unexpectedly You are not improving as expected You have questions about your visit or medications Your to do list Future Appointments Provider Department Dept Phone 03/01/2015 10:15 AM Ketan Rees APRN, [facility] Obstetrics/Gynecology [phone] Please arrive 15 minutes early with your insurance card, photo ID, and copay should one apply to your visit. Should the office visit results in a procedure or any type of surgery financial clearance the office will contact you with an estimate. Should you need to cancel your appointment, please do sobefore 48 hours of your appointment. 03/29/2015 9:30 AM [facility] 1 Ceci Delarosa [facility] [phone] CHECK IN: Please arrive 15 min prior to your exam. PREPARATION INSTRUCTIONS: If you are less than 25 weeks of gestation: Drink 16 ounces of water to be finished 45 minutes before the exam. Keep your bladder full. If you are greater than 25 weeks of gestation: You will not need a full bladder, and do not need to drink additional water. 03/29/2015 10:30 AM MD Ceci Tabares Obstetrics/Gynecology [phone] Please arrive 15 minutes early with your insurance card, photo ID, and copay should one apply to your visit. Should the office visit results in a procedure or any type of surgery financial clearance the office will contact you with an estimate. Should you need to cancel your appointment, please do sobefore 48 hours of your appointment. 04/26/2015 9:45 AM Ketan Rees APRN, [facility] Obstetrics[facility]Gynecology [phone] Please arrive 15 minutes early with your insurance card, photo ID, and copay should one apply to your visit. Should the office visit results in a procedure or any type of surgery financial clearance the office will contact you with an estimate. Should you need to cancel your appointment, please do sobefore 48 hours of your appointment. 05/24/2015 9:00 AM MD Ceci Tabares Obstetrics/Gynecology [phone] Please arrive 15 minutes early with your insurance card, photo ID, and copay should one apply to your visit. Should the office visit results in a procedure or any type of surgery financial clearance the office will contact you with an estimate. Should you need to cancel your appointment, please do sobefore 48 hours of your appointment. 06/07/2015 9:00 AM Ketan Rees APRN, [facility] [phone] Please arrive 15 minutes early with your insurance card, photo ID, and copay should one apply to your visit. Should the office visit results in a procedure or any type of surgery financial clearance the office will contact you with an estimate. Should you need to cancel your appointment, please do sobefore 48 hours of your appointment. 06/21/2015 9:00 AM MD Ceci Tabares Obstetrics/Gynecology [phone] Please arrive 15 minutes early with your insurance card, photo ID, and copay should one apply to your visit. Should the office visit results in a procedure or any type of surgery financial clearance the office will contact you with an estimate. Should you need to cancel your appointment, please do sobefore 48 hours of your appointment. 07/06/2015 9:00 AM Ketan Rees APRN, CN [facility] Obstetrics/Gynecology [phone] Please arrive 15 minutes early with your insurance card, photo ID, and copay should one apply to your visit. Should the office visit results in a procedure or any type of surgery financial clearance the office will contact you with an estimate. Should you need to cancel your appointment, please do sobefore 48 hours of your appointment. 07/20/2015 9:00 AM MD Ceci Damon Obstetrics/Gynecology [phone] Please arrive 15 minutes early with your insurance card, photo ID, and copay should one apply to your visit. Should the office visit results in a procedure or any type of surgery financial clearance the office will contact you with an estimate. Should you need to cancel your appointment, please do sobefore 48 hours of your appointment. Future Orders Complete By Ordering Dept. US OB Early Single < 14 Weeks 09/11/2014 (Approximate) [place] hCG, Quant [HCG] 09/13/2014 (Approximate) [facility] BB Antibody Screen As directed [facility] Rubella IgG As directed Ceci Del[facility] Obstetrics/Gynecology Type and Screen (TST) As directed [facility]Gyne[facility] US OB Comp Single (> 18 weeks) As directed Ceci Delarosa Obstetrics/Gynecology Recurring Lab Work Interval Ordering Dept. hCG, Quant [HCG] 1 week until 09/05/2015 Ceci Delarosa Obstetrics/Gynecology Follow-up Information Follow up with Harika Crockett MD In 1 day. Specialty: OBSTETRICS AND GYNECOLOGY Contact information: [address] [place] [address] [place] [address] HERE IS INFORMATION FROM TODAY'S VISIT Reason for Visit Abdominal Cramping Reason for Visit History Health issues considered by your clinician today Abdominal pain during If you had any tests, you will be notified of your abnormal results by your clinic. We Performed the Following Urinalysis Routine(Micro If Pos): Urine Microscopic: Results Urinalysis Routine(Micro If Pos): Component Value Standard Range & Units Urine Type Urine:clean cat Turbidity Clear Clear U Bili Negative Negative Blood Urine Negative Negative Glucose, Qualitative U Negative Neg-30 mg/dL Ketones Negative Negative Leukocyte Esterase Urine Negative Negative Nitrite Urine Negative Negative pH Urine 7.5 5.0-8.0 Protein Urine Negative Neg - Trace mg/dL U Specific [place] 1.010 1.005 - 1.030 Urobilinogen Urine Negative Negative Eu/dL Urine Microscopic: Component Value Standard Range & Units Urine WBC 0-2 0 - 4 /HPF Urine RBC None seen 0 - 2 /HPF Epithelial Cells Occasional /HPF Amorphous Crystals Occasional /HPF Medications administered today None MEDICATIONS As of today's visit, these are your current medications DOSAGE yfjvfftfla-rvkdomdqxxiye-zmrtnlom (FIORICET, ESGIC) 50 mg-325 mg-40 mg per tablet (Taking) Take 1 tablet by mouth every 4 hours as needed for Headaches. doxylamine succinate (UNISOM) 25 mg tablet (Taking) Take 1 tablet by mouth at bedtime as needed forSleep. magnesium hydroxide (MILK OF MAGNESIA) 400 mg/5 mL suspension Take 5 mLs by mouth daily (every 24 hours). metoclopramide (REGLAN) 10 mg tablet Take 1 tablet by mouth 4 times daily (before meals and bedtime). ondansetron (ZOFRAN) 4 mg tablet (Taking) Take 4 mg by mouth every 8 hours as needed for Nausea or Vomiting. 1-2 tablets as needed Indications: EXCESSIVE VOMITING IN VIT W-CA,FE,FA,<1 MG, ( #2 ORAL) (Taking) Take by mouth. pyridoxine (VITAMIN B6) 25 mg tablet Take 1 tablet by mouth daily (every 24 hours) for 30 days. Vital signs from your visit Your Vital Signs Were BP Pulse Temp(Src) Resp Last Period Smoking Status 166/77 mmHg 85 36.6 ??C (97.9 ??F) (Oral) 14 11/11/2014 Never Smoker Allergies as of 02/28/2015 Monistat 1 (Tioconazole) [Tioconazole] 09/04/2014 Redness Immunization History Reviewed on 02/16/2015 PPD 06/04/2009 About You Date Of Sex Race Ethnicity Preferred Language 1985 Female White Non- Malay This document contains confidential information about your health and care. It is provided directlyto you for your personal, private use only. GER OF DEVELOPMENT documented in this encounter Plan of Treatment Not on filedocumented as of this encounter Procedures Procedure Name Priority Date/Time Associated Comments Diagnosis URINE MICROSCOPIC STAT 02/28/2015 4:23 PM Abdominal pain Re sults for this MANAGER OF DEVELOPMENT during procedure a re in the results section. URINALYSIS STAT 02/28/2015 4:23 PM Abdominal pain Results for this ROUTINE(MICRO IF POS) MANAGER OF DEVELOPMENT during pr ocedure are in the results section. documented in this encounter Results URINE MICROSCOPIC (02/28/2015 4:23 PM MANAGER OF DEVELOPMENT) [facility] Method Time Signature Urine WBC 0-2 0 - 4 HP CONVERSION /HPF Urine RBC None seen 0 - 2 HP CONVERSION /HPF Epithelial Occasional /HPF HP CONVERSION Cells Amorphous Occasional /HPF HP CONVERSION Crystals Specimen Anatomical Collection Method Collection Time Receive d Time (Source) Location / / Volume Laterality 02/28/2015 4:23 PM 5 4:33 MANAGER OF DEVELOPMENT PM MANAGER OF DEVELOPMENT Narrative HP CONVERSION - 02/28/2015 4:54 PM MANAGER OF DEVELOPMENT Performed at [facility], [address] [place] [address] ??[address] [place]# [id number] Alexey Felix MD LAB_1 Performing Organization Address City/State/ZIP Code Phon e Number HP CONVERSION URINALYSIS ROUTINE(MICRO IF POS) (02/28/2015 4:23 PM MANAGER OF DEVELOPMENT) [facility] Method Time Signature Urine Type Urine:clean HP CONVERSION cat Turbidity Clear Clear HP CONVERSION U BILI Negative Negative HP CONVERSION Blood Urine Negative Negative HP CONVERSION Glucose, Negative Neg-30 HP CONVERSION Qualitative U mg/dL Ketones Negative Negative HP CONVERSION Leukocyte Negative Negative HP CONVERSION Esterase Urine Nitrite Urine Negative Negative HP CONVERSION pH Urine 7.5 5.0 - 8.0 HP CONVERSION Protein Urine Negative Neg - Trace HP CONVERSION mg/dL U Specific 1.010 1.005 - HP CONVERSION [place] 1.030 Urobilinogen Negative Negative HP CONVERSION Urine Eu/dL Specimen Anatomical Collection Method Collection Time Receive d Time (Source) Location / / Volume Laterality Urine: 02/28/2015 4:23 PM 5 4:33 MANAGER OF DEVELOPMENT PM MANAGER OF DEVELOPMENT Narrative HP CONVERSION - 02/28/2015 4:35 PM MANAGER OF DEVELOPMENT Performed at [facility] and [facility], [address] [place] [address] ??[address] [place]# [id number] Alexey Felix MD LAB_1 Performing Organization Address City/State/ZIP Code Phon e Number HP CONVERSION documented in this encounter Visit Diagnoses Diagnosis Abdominal pain during - Primar y Triage Assessment Note - Sonam Ruiz RN - 02/28/2015 3:31 PM CST Abdominal cramping radiating to her back for the past two hours. No spotting. EDC August 17. Pt called her ditch tender and pt was told to watch it. Pt has an appointment with her ditch tender tomorrow. GER OF DEVELOPMENT documented in this encounter Care Teams Parole Agent Relationship Specialty Start Date End Date Sharon Mijares MD PCP - General 07/30/10 [address] [place] [address] documented as of this encounter
--- OUTSIDE RECORDS SUMMARY | 2022-01-23 23:49 | XMS_ITS | Encounter Summary ---
:1985 [facility] Address [address], [place] [address] Care Team Providers Name Role Phone Sharon Mijares MD Primary Care Provider [phone] Encounter Details Date Type Department Care Team Description 05/02/2015 [facility] [address] [place] [address] for supervision of Maternal Medic ine normal first in [address] [place] [address] second trimester [place], [place] [address] Social History Tobacco Use Types Packs/Day Years Used Date Smoking Tobacco: Never Assessed Sex Assigned at Date Recorded Not on file documented as of this encounter Plan of Treatment Not on filedocumented as of this encounter Procedures Procedure Name Priority Date/Time Associated Diagnosis Comme [facility] US ECHO Routine 05/02/2015 11:10 AM Encounter for Re maribellts for this MGMT CONSULTANT supervision of normal proced ure are in first in the [facility] ts second trimester section. documented in this encounter Results [facility] US Echo (05/02/2015 11:10 AM MGMT CONSULTANT) Anatomical Region Laterality Modality Pelvis Other Study GA Study Date Study JAMIE Working JAMIE (Source) W eight (Method) 24w4d 05/02/2015 0 g (Other Sour ce) Result Name Value Comments GA by US Calc BPD HC AC FL HL FL/BPD FL/AC HC/AC CI GLO Lateral Ventricle CER Foot Max Vertical Pocket FHR 140 bpm UAR - PSV UAR - S/D Ratio UAR - RI UAR - PI MCA - PSV MCA - S/D Ratio MCA - PI Specimen (Source) Anatomical Location Collection Method / Collectio n Time Received Time / Laterality Volume Narrative 05/02/2015 11:28 AM MGMT CONSULTANT Patient Name: Noa Franco ??Sonogr apher: Stephania Ram RDMS Patient ??GA Prior to Exam : 24w4d , Age: 5 1985, 29 y.o. ??GA by Tod ay's US: N/A LMP: Patient's last menstrual period was 11/11/2014. ??GA Selected: 24w4d by LMP Pregnancies: ??JAMIE Selected: 07/27 Hx/Indications: Suboptimal heart images ? Gestation Type: Sanchez Heart Rate: 140 bpm Anatomy Finding Normal Abnormal Inadequately Vis ualized Heart Heart Rhythm Regular ? 4 Chamber Heart X ? Cardiac [place] X ? Cardiac Position X ? Visceral/Abdominal Situs X ? AV Valves X ? Valve Motion X ? LVOT/AO X ? RVOT/PA X ? Aortic Arch X ? Ductal Arch X ? IVC/SVC X ? 3 Vessel View X ? 3 Vessel Trachea View X ? Short [place] View X ? Foramen Ovale X ? Pulmonary Veins X ? Short [place] of Ventricles X ? Short [place] of Great Vessels X ? Pericardial Effusion Absent ? Intraventricular Septum X ? Ductus Venosus X ? Impression Patient here for echocardiogram. ? ? 1. ??Intrauterine at 24w4d wee ks by EDC 2. ??Normal echocardiogram. 3. ??Normal growth and amniotic fl uid volume. ?? The results of the echocardiogram were discussed with the parents. ??The findings are normal, and are reassuring. ??Although ?? echocardiograms can not rule out some issues, the overall risk is less than the baseline risk. ??Normal post delivery assessment of the is sufficient in terms of follow-up, unless there is other clinical concerns before then. ?? Some findings seen in the or lat er in life not detectable on echocardiogram include: ??some ventricular septal defects, persistent patent ductus arteriosus, atrial septal defect, some abno rmalities of systemic and pulmonary veno us return, coarctation of the aorta, and minor valv e abnormalities. ?? Harika S Covert MD [facility] US documented in this encounter Visit Diagnoses Diagnosis Encounter for supervision of normal firs t in second trimester Supervision of normal first documented in this encounter Care Teams Pediatric Cardiologist Relationship Specialty Start Date End Date Sharon Mijares MD PCP - General 07/30/10 [address] [place] [address] documented as of this encounter
--- OUTSIDE RECORDS SUMMARY | 2022-01-23 23:49 | XMS_ITS | Encounter Summary ---
:1985 Author Organization [facility] Address [address], [place] [address] Care Team Providers Name Role Phone Sharon Mijares MD Primary Care Provider [phone] Reason for Visit Reason Comments LAB RESULTS Encounter Details Date Type Department Care Team Description 05/24/2015 Telephone Ketan Garcia APRN, LAB RESULTS Obstetrics/Gynecolog y [address], [id number] [place] [address] [phone] Social History Tobacco Use Types Packs/Day Years Used Date Smoking Tobacco: Never Assessed Sex Assigned at Date Recorded Not on file documented as of this encounter Nursing Notes Ree De Dios RN - 05/24/2015 3:31 PM CST Pt informed of elevated O'Shaw and need for 2hr GTT. Transferred to lab scheduling. CHILI Jany Giraldo RN - 05/24/2015 12:55 PM CST LMTCB Component Latest Ref Rng 05/24/2015 Glucose O'Shaw Screen 50 - 134 mg/dL 139 (H) Hemoglobin 11.9 CHILI Jany Giraldo, RN - 05/24/2015 12:51 PM CST ----- Message from Ketan Rees APRN, CNM sent at 05/24/2015 12:19 PM COOK CHILI ----- Please inform pt of elevated GCT and need to do GTT. Thanks CHILI documented in this encounter Plan of Treatment Not on filedocumented as of this encounter Visit Diagnoses Diagnosis Abnormal glucose complicating - Primary Abnormal maternal glucose tolerance, com plicating , childbirth, or the puerperium, unspecified as to episode of care documented in this encounter Care Teams Coke Handling Supervisor Relationship Specialty Start Date End Date Sharon Mijares MD PCP - General 07/30/10 [address] [place] [address] documented as of this encounter
--- OUTSIDE RECORDS SUMMARY | 2022-01-23 23:49 | XMS_ITS | Encounter Summary ---
:1985 Author Organization [facility] Address [address], [place] [address] Care Team Providers Name Role Phone Sharon Mijares MD Primary Care Provider [phone] Encounter Details Date Type Department Care Team Description 04/24/2015 Notes/Orders Ketan Garcia, Diabetes m ellitus screening (Primary Dx); Obstetrics/Gynecolog y CORPORATE RESPONSIBILITY OFFICER, CNM Screening for deficiency anemia [address] [place] [address] [address] [place] [phone] Social History Tobacco Use Types Packs/Day Years Used Date Smoking Tobacco: Never Assessed Sex Assigned at Date Recorded Not on file documented as of this encounter Plan of Treatment Not on filedocumented as of this encounter Visit Diagnoses Diagnosis Diabetes mellitus screening - Primary Screening for diabetes mellitus Screening for deficiency anemia Screening for other and unspecified defi ciency anemia documented in this encounter Care Teams Egg Processor Relationship Specialty Start Date End Date Sharon Mijares MD PCP - General 07/30/10 [address] [place] [address] documented as of this encounter
--- OUTSIDE RECORDS SUMMARY | 2022-01-23 23:49 | XMS_ITS | Encounter Summary ---
:1985 Author Organization [facility] Address [address] [place] [address] Care Team Providers Name Role Phone Sharon Mijares MD Primary Care Provider [phone] Reason for Visit Reason Comments Routine Visit Encounter Details Date Type Department Care Team Description 04/26/2015 Routine [place] Ketan Rees Routin e Obstetrics/Gynecolo CARPENTRY TEACHER, CNM Visit gy [address], [address] [phone] Social History Tobacco Use Types Packs/Day Years Used Date Smoking Tobacco: Never Assessed Sex Assigned at Date Recorded Not on file documented as of this encounter Last Filed Vital Signs Vital Sign Reading Time Taken Comments Blood Pressure 114/71 04/26/2015 9:31 AM SECURITIES UNDERWRITER Pulse 92 04/26/2015 9:31 AM SECURITIES UNDERWRITER Temperature - - Respiratory Rate - - Oxygen Saturation - - Inhaled Oxygen Concentration - - Weight 76.8 kg (169 lb 6.4 oz) 04/26/2015 9:31 AM SECURITIES UNDERWRITER Height 157.5 cm (5' 2) 04/26/2015 9:31 AM SECURITIES UNDERWRITER Body Mass Index 30.98 04/26/2015 9:31 AM SECURITIES UNDERWRITER documented in this encounter Patient Instructions Patient InstructionsNayan Lindquist LPN - 04/26/2015 9:34 AM CST Thank you for choosing [facility] for your care. We recommend you review the following information in the book Your Guide to : ?? Labor ?? Testing: ?? Routine Tests- Glucose Tolerance Test ?? Monitoring Tests- Non-Stress Test ?? Monitoring Tests- Biophysical Profile Remember to schedule your one-hour glucose testing to be completed around 28 weeks. Please arrive 20 minutes early at your 28 week visit for your glucose testing. Check in at the frontdesk and they will notify the lab of you lab appointment. After you have received the glucose you will have you blood drawn 1 hour later. During this time we will have you see your provider for your OBvisit. Results will be given to you at your next visit, unless abnormal. If you are Rh Negative it may be necessary to have an antibody screen drawn at 28 weeks of . RITIES UNDERWRITER documented in this encounter Progress Notes Ketan Rees APRN, CNM - 04/26/2015 10:04 AM CST Subjective: 29 y.o. is being seen today for her routine visit. She is doing well. Persistent suboptimal cardiac views, shabnam f/u scan on 05/02. GCT/hgb at next visit. BT: A pos. Objective: see flowsheet Assessment: at 23.5 weeks Plan: -1hr GCT, hgb for next visit -Shabnam f/u scan 05/02 -Follow up: 4 weeks, prn RITIES UNDERWRITER documented in this encounter Plan of Treatment Not on filedocumented as of this encounter Visit Diagnoses Diagnosis Encounter for supervision of normal firs t in second trimester - Primary Supervision of normal first documented in this encounter Care Teams Billiard Parlor Manager Relationship Specialty Start Date End Date Sharon Mijares MD PCP - General 07/30/10 [address] [place] [address] documented as of this encounter
--- OUTSIDE RECORDS SUMMARY | 2022-01-23 23:49 | XMS_ITS | Encounter Summary ---
:1985 Author Organization [facility] Address [address], [place] [address] Care Team Providers Name Role Phone Sharon Mijares MD Primary Care Provider [phone] Encounter Details Date Type Department Care Team Description 05/24/2015 Lab Visit [facility] Diabete s mellitus screening; Laboratory PN Women' s Srv Screening for deficiency ane [address], [address] [place], [place] [phone] Social History Tobacco Use Types Packs/Day Years Used Date Smoking Tobacco: Never Assessed Sex Assigned at Date Recorded Not on file documented as of this encounter Progress Notes Jany Giraldo RN - 05/24/2015 12:43 PM SHANK TAPER Quick Note: see encounter K TAPER documented in this encounter Miscellaneous Notes Miscellaneous - 06/04/2016 10:31 PM CSTNotes Recorded by Jany Giraldo RN on 05/24/2015 at 12:43 PMsee encounter------Notes Recorded by Ketan Rees APRN, CNAmi on 05/24/2015 at 12:19 PMPlease inform pt of elevated GCT and need to do GTT. Thanks K TAPER Miscellaneous - 06/04/2016 10:31 PM CSTNotes Recorded by Jany Giraldo RN on 05/24/2015 at 12:43 PMsee encounter------Notes Recorded by Ketan Rees APRN, CNM on 05/24/2015 at 12:19 PMPlease inform pt of elevated GCT and need to do GTT. Thanks K TAPER documented in this encounter Plan of Treatment Not on filedocumented as of this encounter Procedures Procedure Name Priority Date/Time Associated Comments Diagnosis HEMOGLOBIN OB Routine 05/24/2015 9:50 AM Screening for Results for this SHANK TAPER deficiency anemia procedure are in the results section. GLUCOSE - 1 HR. P.C. Routine 05/24/2015 9:50 AM Diabetes melli tus Results for this PREG SHANK TAPER screening procedure are i n the results section. documented in this encounter Results HEMOGLOBIN OB (05/24/2015 9:50 AM SHANK TAPER) athologist Signature OB Hemoglobin 11.9 gm/dL HP CONVERSION Comment: Reference Ranges Gestational Hemoglobin level measured in gm/dL First Trimester (Week 12) ?? 11.0-13.4 Second Trimester (Week 20) ??10.5-12.7 Third Trimester (Week 32) ?? 11.0-13.2 From MMWR 1989;38(22):400-4 Specimen Anatomical Collection Method Collection Time Receive d Time (Source) Location / / Volume Laterality 05/24/2015 9:50 AM 6 SHANK TAPER 11:06 AM SHANK TAPER Narrative HP CONVERSION - 05/24/2015 11:25 AM SHANK TAPER Performed at [facility], [address] [place] [id number] CLIA# [id number] Transcriptions 06/04/2016 10:31 PM CSTNotes Recorded by Jany Giraldo RN on 05/24/2015 at 12:43 PMsee encounter------Notes Recorded by Ketan Rees APRN, CNM on 05/24/2015 at 12:19 PMPlease inform pt of elevated GCT and need to do GTT. Thanks Ketan Rees APRN, CNM LAB_1 Performing Organization Address City/State/ZIP Code Phon e Number HP CONVERSION (ABNORMAL) Glucose - 1 Hr. P.C. Preg (05/24/2015 9:50 AM SHANK TAPER) P athologist Signature Glucose 139 (H) 50 - 134 HP CONVERSION [place]aw mg/dL Screen Specimen Anatomical Collection Method Collection Time Receive d Time (Source) Location / / Volume Laterality 05/24/2015 9:50 AM 6 SHANK TAPER 11:06 AM SHANK TAPER Narrative HP CONVERSION - 05/24/2015 11:23 AM SHANK TAPER Performed at [facility], [address] [place] [address] ??[address] CLIA# [id number] Transcriptions 06/04/2016 10:31 PM CSTNotes Recorded by Jany Giraldo RN on 05/24/2015 at 12:43 PMsee encounter------Notes Recorded by Ketan Rees APRN, CNM on 05/24/2015 at 12:19 PMPlease inform pt of elevated GCT and need to do GTT. Thanks Ketan Rees APRN, CNM LAB_1 Performing Organization Address City/State/[facility] Code Phon e Number HP CONVERSION documented in this encounter Visit Diagnoses Diagnosis Diabetes mellitus screening Screening for diabetes mellitus Screening for deficiency anemia Screening for other and unspecified defi ciency anemia documented in this encounter Care Teams Burlap Man Relationship Specialty Start Date End Date hSaron Mijares MD PCP - General 07/30/10 [address] [place] [address] documented as of this encounter
--- OUTSIDE RECORDS SUMMARY | 2022-01-23 23:49 | XMS_ITS | Encounter Summary ---
:1987 Author Organization [facility] Address [address], [place] [address] Care Team Providers Name Role Phone Sharon Mijares MD Primary Care Provider [phone] Reason for Visit Reason Comments Concerns Encounter Details Date Type Department Care Team Description 02/28/2015 Nurse Triage Ceci Delarosa Covert, Harika S, Concerns Obstetrics/Gynecolog y [address] [place] [address], [address] [place] [address] [address] [place] [address] [phone] (Wo rk) Social History Tobacco Use Types Packs/Day Years Used Date Smoking Tobacco: Never Assessed Sex Assigned at Date Recorded Not on file documented as of this encounter Nursing Notes Arabella Estrella, RN - 02/28/2015 2:25 PM CST Protocol: - ABDOMINAL PAIN LESS THAN 20 WEEKS [id number] Affirmative: Patient wants to be seen Disposition of See Within 12 - 24 Hours (Office or Urgent Care) suggested. Pt reports abdominal cramping for the last hour. Pt states it is intermittent, moderately painful. Pt denies VB, urinary sx, unusual vaginal discharge. Pt does state she is fighting a GI bug and has had diarrhea on and off the last two weeks. Mass Communications Instructor advised pt she should be seen in FM or IM to address the ongoing diarrhea. Also advised that pt be seen in OBGYN clinic to r/o UTI; pt states she has an appt tomorrow and wants to see if the cramping stops. Pt states if her cramping continues past 2 hours, she will seek further evaluation in UC. Reviewed s/sx of when to call back with pt. She is agreeable with plan. Patient verbalizes understanding of instructions/plan. TECHNICIAN documented in this encounter Plan of Treatment Not on filedocumented as of this encounter Visit Diagnoses Not on filedocumented in this encounter Care Teams Java Sdet Relationship Specialty Start Date End Date Sharon Mijares MD PCP - General 07/30/10 [address] [place] [address] documented as of this encounter
--- OUTSIDE RECORDS SUMMARY | 2022-01-23 23:50 | XMS_ITS | Encounter Summary ---
:1985 Author Organization [facility] Address [address], [place] [address] Care Team Providers Name Role Phone Moisés Mijares MD Primary Care Provider [phone] Reason for Visit Reason Comments Other Encounter Details Date Type Department Care Team Description 08/28/2010 Telephone [facility], Message Other [address] [place] [address] Social History Tobacco Use Types Packs/Day Years Used Date Smoking Tobacco: Never Assessed Sex Assigned at Date Recorded Not on file documented as of this encounter Progress Notes Center, Message - 08/28/2010 3:28 PM CDT Phone Note filed by [employer] at 09/02/10 2673 Author: [employer] Service: (none) Author Type: (none) Filed: 09/02/10 1537 Note Time: 08/28/101527 Status: Addendum Population Geneticist: [employer] (Resource) Related Notes: Original Note by Maycol Andrade (Physician) filed at 09/02/10 9350 Lab/Radiology Requests Caller Name/Relationship:paula Latham Primary Air Cargo Ground Operations Supervisor:Dr. 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 *If symptom related, send to triage Production Maintenance Technician:pt Best call back number:[phone] Is it OK to leave a confidential message on this voicemail?yes *ECODE~[email or web address] Created on 28Aug2010 3:28pm by JAN AVINA J On 28Aug2010 3:28pm CONNIE NATH wrote: Forwarding to [facility]. On 28Aug2010 3:33pm CELESTINE OWENS wrote: reviewed and forwarded On 28Aug2010 4:43pm MOISÉS MIJARES wrote: please call she should be seen last visit >1 year; need to discuss blood test and interpretation Acknowledged by MOISÉS MIJARES on 4:43pm On 28Aug2010 4:47pm AMBER NICK wrote: Please call patient to schedule an appt with Dr. Mijares. See above note. On 29Aug2010 9:47am JEFFREY MESSER wrote: Left message that an office appt is needed. Reminded her to bring any forms she may have. MAINTENANCE MANAGER documented in this encounter Plan of Treatment Not on filedocumented as of this encounter Visit Diagnoses Not on filedocumented in this encounter Care Teams Small Offset Printer Relationship Specialty Start Date End Date Moisés Mijares MD PCP - General 07/30/10 [address] [place] [address] documented as of this encounter
--- OUTSIDE RECORDS SUMMARY | 2022-01-23 23:50 | XMS_ITS | Encounter Summary ---
:1985 Author Organization [facility] Address [address] [address] Care Team Providers Name Role Phone Sharon Mijares MD Primary Care Provider [phone] Reason for Visit Reason Comments Other Encounter Details Date Type Department Care Team Description 02/21/2009 Telephone [facility], Message Other [address] [place], [place] [address] Social History Tobacco Use Types Packs/Day Years Used Date Smoking Tobacco: Never Assessed Sex Assigned at Date Recorded Not on file documented as of this encounter Progress Notes Center, Message - 02/21/2009 12:36 PM CDT Phone Note filed by [employer] at 08/16/10 9307 Author: [employer] Service: (none) Author Type: (none) Filed: 08/16/10 1508 Note Time: 02/21/09 1236 Status: Signed Plaster Pattern Caster: [employer] (Resource) Front Line Sx Call Caller Name/Relationship:maira Primary Wharf Builder:abisai Symptom or request?abdominal pain Is appointment scheduled & when?no Back Hand:maira Best call back number:[phone] Is it OK to leave a confidential message on this voicemail?yes *ECODE~PNSX2 Created on 21Feb2009 12:36pm by HALLUSKA, CHASITY L On 21Feb2009 1:32pm LENI POPE wrote: number provided not working On 22Feb2009 5:25pm DEON OTTO wrote: C/B line not working. Will wait callback. Number checked on L.W.demographic review. EMAKER documented in this encounter Plan of Treatment Not on filedocumented as of this encounter Visit Diagnoses Not on filedocumented in this encounter Care Teams Baggage Porter Relationship Specialty Start Date End Date Sharon Mijares MD PCP - General 07/30/10 [address] [place] [address] documented as of this encounter
--- OUTSIDE RECORDS SUMMARY | 2022-01-23 23:50 | XMS_ITS | Encounter Summary ---
:1985 Author Organization [employer] Address [address] [address] Care Team Providers Name Role Phone Unavailable Primary Care Provider Unavailable Encounter Details Date Type Department Care Team Description 02/19/2009 Hospital Encounter CONGREGATION CONVERSION Amy Castillo, OPTICAL FABRICATOR, SCRAP BALLER [address] [facility] [address] [place], [place] [address] (Wo rk) Social History Tobacco Use Types Packs/Day Years Used Date Smoking Tobacco: Never Assessed Sex Assigned at Date Recorded Not on file documented as of this encounter Medications at Time of Discharge Medication Sig Dispensed Refills Start Date End Date HYDROcodone-acetaminophen Take 1 tablet by 20 0 06/0 10/200605/04/2009 (VICODIN) 5-500 MG tablet mouth every 4 hours as needed. LW Addl Instr:Maximum of 8 tablets/24 hours. unknown medication Indications: PN: 0 02/13/2009 01/11/2015 unknown medication Indications: PN: 0 02/18/2008 05/04/2009 unknown medication Indications: PN: 0 02/09/2008 05/04/2009 documented as of this encounter Plan of Treatment Not on filedocumented as of this encounter Procedures Procedure Name Priority Date/Time Associated Diagnosis Comme nts US ABD RUQ ORGANS Routine 02/19/2009 4:26 PM Resu lts for this CDT procedure are i n the results section. documented in this encounter Results US Abd RUQ Organs (02/19/2009 4:26 PM CDT) Anatomical Region Laterality Modality Abdomen Other Specimen (Source) Anatomical Location Collection Method / Collectio n Time Received Time / Laterality Volume Impressions 02/19/2009 4:26 PM CDT : ?Negative right upper quadrant ultrasound. Dictating ALEXEY SOMMERS RADIOLOGIST Narrative 02/19/2009 4:26 PM CDT COMPARISON: ?None. FINDINGS: PANCREAS: ?? Normal. LIVER: ?? Normal. GALLBLADDER: ?? Normal, no stones. CBD: ?? Normal. RIGHT KIDNEY: ?? Not hydronephrotic, neg ative. Procedure Note Alexey Sommer - 10/12/2015Formattin g of this note might be different from the original. COMPARISON: None. FINDINGS: PANCREAS: Normal. LIVER: Normal. GALLBLADDER: Normal, no stones. CBD: Normal. RIGHT KIDNEY: Not hydronephrotic, negati ve. IMPRESSION : Negative right upper quadrant ultrasou nd. Dictating ALEXEY SOMMERS RADIOLOGIST Amy Castillo OPTICAL FABRICATOR, SCRAP BALLER RAD US documented in this encounter Visit Diagnoses Not on filedocumented in this encounter
--- OUTSIDE RECORDS SUMMARY | 2022-01-23 23:50 | XMS_ITS | Encounter Summary ---
:1985 Author Organization [facility] Address [address], [place] [address] Care Team Providers Name Role Phone Sharon Mijares MD Primary Care Provider [phone] Reason for Visit Reason Comments SKIN PROBLEM Encounter Details Date Type Department Care Team Description 12/12/2014 Nurse Triage [facility] Sharon Mijares, SKIN PROBLEM [address] [facility] [address] [place] [address] [facility] [phone] [place], [place] [address] (Wo rk) Social History Tobacco Use Types Packs/Day Years Used Date Smoking Tobacco: Never Assessed Sex Assigned at Date Recorded Not on file documented as of this encounter Nursing Notes Kellee Lechuga, RN - 12/12/2014 6:19 PM CDT Protocol: BODY [id number] Affirmative: Minor local infection (e.g., slight localized redness, minor discharge) (all triage questions negative) Disposition of Home Care suggested. Pt got a nose piercing a few days ago. She is noting increase redness and slight yellow pus. No streaking or fever present. Nose is slightly tender to the touch. No other symptoms reported at this time. Care advice given per protocol. Advised to call back directly if there are further questions, or ifthese symptoms fail to improve as anticipated or worsen. documented in this encounter Plan of Treatment Not on filedocumented as of this encounter Visit Diagnoses Not on filedocumented in this encounter Care Teams Bus Operator Relationship Specialty Start Date End Date Sharon Mijares MD PCP - General 07/30/10 [address] [place], [place] [address] documented as of this encounter
--- OUTSIDE RECORDS SUMMARY | 2022-01-23 23:50 | XMS_ITS | Encounter Summary ---
:1985 Author Organization [employer] Address [address], [place] [address] Care Team Providers Name Role Phone Sharon Mijares MD Primary Care Provider [phone] Reason for Visit Reason Comments Concerns Encounter Details Date Type Department Care Team Description 09/01/2014 Nurse Triage Ceci Clement Walker, Con tiffany Obstetrics/Gynecolog y MD Olga [address] [facility], [address] [place] [address] [address] [place] [address] [phone] (Wo rk) Social History Tobacco Use Types Packs/Day Years Used Date Smoking Tobacco: Never Assessed Sex Assigned at Date Recorded Not on file documented as of this encounter Nursing Notes Ree De Dios RN - 09/01/2014 10:10 AM CDT Protocol: - VAGINAL BLEEDING LESS THAN 20 WEEKS [id number] Affirmative: MILD vaginal bleeding (i.e., clots or similar to menstrual period; not just spotting) Disposition of See in Primary Care Office within 36-48 hours suggested. 5 weeks . Noticing some bright red bldg today. Thinks it is more than spotting. No recent intercourse. Slight abdominal pain. Unsure of blood type. Scheduled with Dr. Pritchett today to assess. documented in this encounter Plan of Treatment Not on filedocumented as of this encounter Visit Diagnoses Not on filedocumented in this encounter Care Teams Crate Maker Relationship Specialty Start Date End Date Sharon Mijares MD PCP - General 07/30/10 [address] [place] [address] documented as of this encounter
--- OUTSIDE RECORDS SUMMARY | 2022-01-23 23:50 | XMS_ITS | Encounter Summary ---
:1985 Author Organization [facility] Address [address] [address] Care Team Providers Name Role Phone Sharon Mijares MD Primary Care Provider [phone] Encounter Details Date Type Department Care Team Description 05/04/2009 PN Conversion Only [facility] CONVERSION [address] [place] [address] Social History Tobacco Use Types Packs/Day Years Used Date Smoking Tobacco: Never Assessed Sex Assigned at Date Recorded Not on file documented as of this encounter Plan of Treatment Not on filedocumented as of this encounter Visit Diagnoses Not on filedocumented in this encounter Care Teams Senior Sustainability Consultant Relationship Specialty Start Date End Date Sharon Mijares MD PCP - General 07/30/10 [address] [place] [address] documented as of this encounter
--- OUTSIDE RECORDS SUMMARY | 2022-01-23 23:50 | XMS_ITS | Encounter Summary ---
:1985 Author Organization [facility] Address [address] [place] [address] Care Team Providers Name Role Phone Sharon Mijares MD Primary Care Provider [phone] Encounter Details Date Type Department Care Team Description 06/04/2009 Nursing Visit [facility] Antonella Laird MD [address] [place] [address] [place] [address] [phone] (Wo rk) Social History Tobacco Use Types Packs/Day Years Used Date Smoking Tobacco: Never Assessed Sex Assigned at Date Recorded Not on file documented as of this encounter Plan of Treatment Not on filedocumented as of this encounter Visit Diagnoses Not on filedocumented in this encounter Care Teams Plastic Technician Relationship Specialty Start Date End Date Sharon Mijares MD PCP - General 07/30/10 [address] [place] [address] documented as of this encounter
--- OUTSIDE RECORDS SUMMARY | 2022-01-23 23:50 | XMS_ITS | Encounter Summary ---
:1985 Author Organization [facility] Address [address], [place] [address] Care Team Providers Name Role Phone Sharon Mijares MD Primary Care Provider [phone] Reason for Visit Reason Comments LAB RESULTS Encounter Details Date Type Department Care Team Description 09/04/2014 Telephone Kaitlyn Vizcaino MD LAB RESULTS Obstetrics/Gynecolog y [address] [facility] [address] [facility] [address] [place] [address] [place] [address] [phone] Social History Tobacco Use Types Packs/Day Years Used Date Smoking Tobacco: Never Assessed Sex Assigned at Date Recorded Not on file documented as of this encounter Nursing Notes Maribell Loving APRN, CNP - 09/04/2014 4:39 PM CDT I called pt and we discussed results. Likely SAB Ree De Dios RN - 09/04/2014 3:53 PM CDT HCG was 186 today, 140 on 09/01. Please address. Radha Clark - 09/04/2014 3:45 PM CDT Non -Symptom Message from Front Line Primary Care Provider: Sharon Mijares MD/Shreyas Message: Pt would like a callback today from a Nurse with her lab results. Pt does have voicemail. Please call & advise. documented in this encounter Plan of Treatment Not on filedocumented as of this encounter Visit Diagnoses Not on filedocumented in this encounter Care Teams Tube Bending Machine Operator Relationship Specialty Start Date End Date Sharon Mijares MD PCP - General 07/30/10 [address] [place] [address] documented as of this encounter
--- OUTSIDE RECORDS SUMMARY | 2022-01-23 23:50 | XMS_ITS | Encounter Summary ---
:1985 Author Organization [facility] Address [address] [address] Care Team Providers Name Role Phone Sharon Mijares MD Primary Care Provider [phone] Reason for Visit Reason Comments Other Encounter Details Date Type Department Care Team Description 05/07/2009 Telephone [facility], Message Other [address] [place] [place] [address] Social History Tobacco Use Types Packs/Day Years Used Date Smoking Tobacco: Never Assessed Sex Assigned at Date Recorded Not on file documented as of this encounter [facility], Message - 05/07/2009 12:01 PM CST Phone Note filed by [employer] at 08/16/102045 Author: [employer] Service: (none) Author Type: (none) Filed: 08/16/102045 Note Time: 05/07/09 1201 Status: Signed Digital Production Manager: [employer] (Resource) Lab/Radiology Results Caller Name/Relationship: Annemarie Primary Acrylic Fabricator: Maryana What test result is needed? blood work and urine When and where was test done? 05/04/09 Asad gonzalez Who ordered the test? Maryana Power Reactor Operator: Annemarie Best call back number: [phone] Is it OK to leave a confidential message on this voicemail? yes *[id number] Created on 07May2009 12:01pm by RICHARD ARECHIGA On 07May2009 12:39pm NANCY BOUDREAUX Yeimi wrote: [facility] On 07May2009 1:25pm GERMAN CASANOVA wrote: pt returning nurse call - [phone] cell On 07May2009 3:29pm CHASITY BERNABE wrote: Called and notified pt of normal lab results. ACQUISITION SPECIALIST documented in this encounter Plan of Treatment Not on filedocumented as of this encounter Visit Diagnoses Not on filedocumented in this encounter Care Teams Pattern Developer Relationship Specialty Start Date End Date Sharon Mijares MD PCP - General 07/30/10 [address] [place] [address] documented as of this encounter
--- OUTSIDE RECORDS SUMMARY | 2022-01-23 23:50 | XMS_ITS | Encounter Summary ---
:1985 [facility] Address [address] [address] Care Team Providers Name Role Phone Sharon Mijares MD Primary Care Provider [phone] Reason for Visit Reason Comments RESULTS, TEST Encounter Details Date Type Department Care Team Description 09/01/2014 Telephone [facility] Sharon Mijares, RESULTS, TEST [address] [address] [place] [address] [address] [phone] [place], [place] [address] (Wo rk) Social History Tobacco Use Types Packs/Day Years Used Date Smoking Tobacco: Never Assessed Sex Assigned at Date Recorded Not on file documented as of this encounter Nursing Notes Florence David RN - 09/01/2014 8:21 PM CDT Pt calling, wanting to know her lab results. Reviewed results: Results for orders placed in visit on 09/01/14 LAB HCG FOR -QUANTITATIVE Result Value Ref Range HCG For 140 (*) 0 - 6 mIU/L Pt verbalized understanding, states she will have repeat level done on Thursday. Romy Mancini RN - 09/01/2014 6:32 PM CDT Pt calling. She had lab work done today. She was told to call for results. Advised this was still inprocess and asked her to call back around 8-8:30 to check again. She agreed to the plan. documented in this encounter Plan of Treatment Not on filedocumented as of this encounter Visit Diagnoses Not on filedocumented in this encounter Care Teams Horseback Excavator Relationship Specialty Start Date End Date Sharon Mijares MD PCP - General 07/30/10 [address] [place] [address] documented as of this encounter
--- OUTSIDE RECORDS SUMMARY | 2022-01-23 23:50 | XMS_ITS | Encounter Summary ---
:1985 Author Organization [facility] Address [address] [place] [address] Care Team Providers Name Role Phone Sharon Mijares MD Primary Care Provider [phone] Reason for Visit Reason Comments INITIAL VISIT Encounter Details Date Type Department Care Team Description 01/11/2015 [place] [facility] [facility] Obstetrics/Gynecolo TOMBSTONE ERECTOR HELPER, CNM VISIT gy [address], [address] [phone] Social History Tobacco Use Types Packs/Day Years Used Date Smoking Tobacco: Never Assessed Sex Assigned at Date Recorded Not on file documented as of this encounter Last Filed Vital Signs Vital Sign Reading Time Taken Comments Blood Pressure 110/70 01/11/2015 8:43 AM CDT Pulse 105 01/11/2015 8:43 AM CDT Temperature - - Respiratory Rate - - Oxygen Saturation - - Inhaled Oxygen Concentration - - Weight 71.7 kg (158 lb 1.6 oz) 01/11/2015 8:43 AM CDT Height 157.5 cm (5' 2) 01/11/2015 8:43 AM CDT Body Mass Index 28.92 01/11/2015 8:43 AM CDT documented in this encounter Patient Instructions Patient InstructionsKetan Rees, TOMBSTONE ERECTOR HELPER, CNM - 01/11/2015 9:00 AM CDT Images from the original note were not included. Thank you for choosing [facility] for your care. We recommend you review the following information in the book Your Guide to and the additional materials you received: ?? Emotional Changes ?? Keeping Track of Your Baby's Health- Testing ?? Baby's Development ?? Caring for Yourself ?? Diet and Nutrition ?? A Family Guide to Eating Fish brochure ?? [facility] brochure ?? Additional [facility] resources Weeks 6 to 10 of Your : After Your Visit Your Care Instructions Congratulations on your . This is an exciting and important time for you. During the first 6 to 10 weeks of your , your body goes through many changes. Your baby grows very fast, even though you cannot feel it yet. You may start to notice that you feel different, both in your body and your emotions. Because each woman's is unique, there is no right way tofeel. You may feel the healthiest you have ever been, or you may feel tired or sick to your stomach (morning sickness). These early weeks are a time to make healthy choices and to eat the best foods for you and your baby. This care sheet will give you some ideas. This is also a good time to think about defects testing. These are tests done during pregnancyto look for possible problems with the baby. First trimester tests for defects can be done between 10 and 13 weeks of , depending on the test. Talk with your doctor about what kinds of te sts are available. Follow-up care is a rand part of your treatment and safety. Be sure to make and go to all appointments, and call your doctor if you are having problems. It's also a good idea to know your test results and keep a list of the medicines you take. How can you care for yourself at home? Eat well ?? Eat at least 3 meals and 2 healthy snacks every day. Eat fresh, whole foods, including: ?? 7 or more servings of bread, tortillas, cereal, rice, pasta, or oatmeal. ?? 3 or more servings of vegetables, especially leafy green vegetables. ?? 2 or more servings of fruits. ?? 3 or more servings of milk, yogurt, or cheese. ?? 2 or more servings of meat, turkey, chicken, fish, eggs, or dried beans. ?? Drink plenty of fluids, especially water. Avoid sodas and other sweetened drinks. ?? Choose foods that have important vitamins for your baby, such as calcium, iron, and folate. ?? Dairy products, tofu, canned fish with bones, almonds, broccoli, dark leafy greens, corn tortillas, and fortified orange juice are good sources of calcium. ?? Beef, poultry, liver, spinach, lentils, dried beans, fortified cereals, and dried fruits are richin iron. ?? Dark leafy greens, broccoli, asparagus, liver, fortified cereals, orange juice, peanuts, and almonds are good sources of folate. ?? Avoid foods that could harm your baby. ?? Do not eat raw or undercooked meat, chicken, or fish (such as sushi or raw oysters). ?? Do not eat raw eggs or foods that contain raw eggs, such as Caesar dressing. ?? Do not eat soft cheeses and unpasteurized dairy foods, such as Brie, feta, or blue cheese. ?? Do not eat fish that contains a lot of mercury, such as shark, swordfish, tilefish, or betty mackerel. Do not eat more than one small can of tuna each week. ?? Do not eat raw sprouts, especially alfalfa sprouts. ?? Cut down on caffeine, such as coffee, tea, and cola. Protect yourself and your baby ?? Do not touch elyse litter or cat feces. They can cause an infection that could harm your baby. ?? High body temperature can be harmful to your baby. So if you want to use a sauna or hot tub, be sure to talk to your doctor about how to use it safely. [place] with morning sickness ?? Sip small amounts of water, juices, or shakes. Try drinking between meals, not with meals. ?? Eat 5 or 6 small meals a day. Try dry toast or crackers when you first get up, and eat breakfast a little later. ?? Avoid spicy, greasy, and fatty foods. ?? When you feel sick, open your windows or go for a short walk to get fresh air. ?? Try nausea wristbands. These help some women. ?? Tell your doctor if you think your vitamins make you sick. Where can you learn more? Go to [employer] and enter G112 in the search box. Current as of: January 03, 2014 Content Version: 10.4 ?? [id number] [employer]. Managing Morning Sickness: After Your Visit Your Care Instructions For many women, the toughest part of early is morning sickness. Morning sickness can rangefrom mild nausea to severe nausea with bouts of vomiting. Symptoms may be worse in the morning, although they can strike at any time of the day or night. If you have nausea, vomiting, or both, look for safe measures that can bring you relief. You can take simple steps at home to manage morning sickness. These steps include changing what and when you eatand avoiding certain foods and smells. Some women find that acupuncture and acupressure wristbands also help. Follow-up care is a rand part of your treatment and safety. Be sure to make and go to all appointments, and call your doctor if you are having problems. It's also a good idea to know your test results and keep a list of the medicines you take. How can you care for yourself at home? ?? Keep food in your stomach, but not too much at once. Your nausea may be worse if your stomach is empty. Eat five or six small meals a day instead of three large meals. ?? For morning nausea, eat a small snack, such as a couple of crackers or dry biscuits, before rising. Allow a few minutes for your stomach to settle before you get out of bed slowly. ?? Drink plenty of fluids, enough so that your urine is light yellow or clear like water. If you have kidney, heart, or liver disease and have to limit fluids, talk with your doctor before you increasethe amount of fluids you drink. Some women find that peppermint tea helps with nausea. ?? Eat more protein, such as chicken, fish, lean meat, beans, nuts, and seeds. ?? Eat carbohydrate foods, such as potatoes, whole-grain cereals, rice, and pasta. ?? Avoid smells and foods that make you feel nauseated. Spicy or high-fat foods, citrus juice, milk,coffee, and tea with caffeine often make nausea worse. ?? Do not drink alcohol. ?? Do not smoke. Try not to be around others who smoke. If you need help quitting, talk to your doctor about stop-smoking programs and medicines. These can increase your chances of quitting for good. ?? If you are taking iron supplements, ask your doctor if they are necessary. Iron can make nausea worse. ?? Get lots of rest. Stress and fatigue can make your morning sickness worse. ?? Ask your doctor about taking prescription medicine, or pwfd-tmz-[id number] products such as vitamin B6, doxylamine, or luigi, to relieve your symptoms. Your doctor can tell you the doses that are safefor you. ?? Take your vitamins at night on a full stomach. When should you call for help? Call your doctor now or seek immediate medical care if: ?? You are too sick to your stomach to drink any fluids. ?? You have symptoms of dehydration, such as: ?? Dry eyes and a dry mouth. ?? Passing only a little dark urine. ?? Feeling thirstier than usual. ?? You have new symptoms such as diarrhea, fever, or belly pain. Watch closely for changes in your health, and be sure to contact your doctor if: ?? You lose weight. ?? You have ongoing nausea and vomiting. Where can you learn more? Go to [employer] and enter W450 in the search box. Current as of: September 28, 2013 Content Version: 10.4 ?? [id number] [employer]. documented in this encounter Progress Notes Mindy Diallo RN - 02/02/2015 9:12 AM CDT Quick Note: Dear Noa, I am writing to let you know that your PAP result is negative. This means that your test result wasnormal. No cancer or precancerous cells were seen. Based on current cervical cancer screening recommendations, your next PAP and HPV should be in 3 years. Continue to schedule your annual preventive exams for your overall health. If you have questions about cervical cancer screening or your test results, call Cervical Cancer Screening and Management Team [phone] Sincerely, Mindy Diallo, RN on behalf of Dr. Radha Rivas, Software Validation Technician [facility] Cervical Cancer Screening and Management Cabrera Ketan Nirmal, TOMBSTONE ERECTOR HELPER, CN - 01/14/2015 9:45 AM CDT Subjective: Noa Franco 29 y.o. is being seen today for her first obstetrical visit. She was seen on 12/27 for N/V, has rx for zofran. Overall her nausea is OK, able to eat/drink some. She had a dating/viabilty scan on 12/27, 6.1 wk IUP. Her has a hx of genital HSV, rare outbreaks. She has no sx or dx. May do antivirals at 36 wks for prevention. Pt aware of C/S if has outbreak at time of labor. Hx of anxiety, no med/feels stable. Hx of migraines, so far feeling well/no migraines. Symptoms since LMP: nausea, vomiting, fatigue. All other complete ROS negative. Menstrual History: Patient's last menstrual period was 11/11/2014.. She is sure of LMP date. Menses typically q 33 days. +UPT 12/13/14. Voip Network Technician History: Last pap: unsure, pap done today. Hx of abnormal pap: none. Obstetric History T0 TAB0 SAB1 E0 M0 L0 # Outcome Date GA Lbr Shorty/2nd Weight Sex Delivery Anes PTL Lv 2 Current 1 SAB Social History: History Social History ??? Marital Status: Single Spouse Name: N/A Number of Children: N/A ??? 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 Smoking status: Never Smoker ??? Smokeless tobacco: Not on file ??? Alcohol Use: No Comment: Alcoholic Drinks/day: Amount:1-2 drinks; Freq:2-4/Month ; ??? Drug Use: No ??? Sexual Activity: Partners: Male Comment: Other Topics Concern ??? Bike Helmet Yes ??? City Water Yes ??? Exercise Yes ??? Guns In Home Yes ??? Seat Belt Yes ??? Special Diet No ??? Weight Concern No Social History Narrative Past Medical History: Past Medical History Diagnosis Date ??? 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 Migraine, unspecified, without mention of intractable migraine without mention of status migrainosus Surgeries: Past Surgical History Procedure Laterality Date ??? R[place] tooth extraction Family/Genetic History: significant for: none noted. Allergies/medications/family/genetic history reviewed and updated as needed in Epic. Objective: Body mass index is 28.91 kg/(m^2). See flow sheet. See physical. Assessment: 29 y.o. at 8.2 wks Patient Active Problem List Diagnosis ??? Teeth Loss Extraction ??? Headache Plan: Initial labs drawn. Pap, GC/CT. vitamins. DHA, vitamin D. NOB teaching completed/see check list. Genetic screening discussed: pt aware of options, timing. Ultrasound for dating reviewed. [facility]/OB orientation/phone #s reviewed. Follow-up in 4 weeks, prn Total time: 50 minutes Counseling time 40 minutes as detailed in plan above. documented in this encounter Miscellaneous Notes Miscellaneous - 06/05/2016 2:45 AM CSTNotes Recorded by Mindy Diallo RN on 02/02/2015 at 9:12 Daly Latham,I am writing to let you know that your PAP result is negative. This means that your test result was normal. No cancer or precancerous cells were seen.Based on current cervical cancer screening recommendations, your next PAP and HPV should be in 3 years. Continue to schedule your annual preventive exams for your overall health.If you have questions about cervical cancer screening or your test results, callCervical Cancer Screening and Management [phone],Gina M Dudley, RN on behalf ofDr. Radha Rivas, Medical DirectorAcmc Healthcare Systemyan ThompsonChic[place] Cervical Cancer Screening and Management TER ATTENDANT documented in this encounter Plan of Treatment Not on filedocumented as of this encounter Procedures Procedure Name Priority Date/Time Associated Diagnosis Comme nts PAP TEST ORDER Routine 01/11/2015 9:48 AM Screening for Result s for this CDT malignant neoplasm procedure are in of the cervix the results section. ANATOMICAL PATH Routine 01/11/2015 9:48 AM Result s for this LIQUID BASED CDT procedure are i n the results section. URINALYSIS Routine 01/11/2015 9:48 AM Encounter for Results for this ROUTINE(MICRO IF CDT supervision of other pro cedure are in POS) normal , the result s unspecified section. trimester CHLAMYDIA & GC (14 Routine 01/11/2015 9:48 AM Screen for STD R esults for this YEARS AND OLDER) CDT (sexually procedure a re in transmitted disease) the res ults section. URINE CULTURE Routine 01/11/2015 9:48 AM Encounter for Results for this CDT supervision of other procedu re are in normal , the result s unspecified section. trimester documented in this encounter Results Chlamydia & GC (01/11/2015 9:48 AM CDT) [facility] Method Time Signature Chlamydia Negative Negative HP CONVERSION Trachomatis STD Comment: Test Performed by Manager Analytical Mediated Amplification CLIA Number [id number] N. gonorrhoeae STD Negative Negative HP CONVERSI ON Comment: Test Performed by Manager Analytical Mediated Amplification Performed at [address] ??[address] CLIA Number [id number] Source STD Cervix HP CONVERSION Comment: CLIA Number [id number] Specimen Anatomical Collection Method Collection Time Receive d Time (Source) Location / / Volume Laterality 01/11/2015 9:48 AM 5 CDT 12:59 PM CDT Ketan Rees APRN, CNM LAB_1 Performing Organization Address City/State/ZIP Code Phon e Number HP CONVERSION Urine Culture (01/11/2015 9:48 AM CDT) [facility] Method Time Signature Source Urine HP CONVERSION Site clean catch HP CONVERSION Urine Culture No growth HP CONVERSION Specimen (Source) Anatomical Collection Method Collection Time Re ceived Time Location / / Volume Laterality Urine:clean catch 01/11/2015 9:48 AM CDT Narrative HP CONVERSION - 01/12/2015 8:36 AM CDT Performed at [facility] , ??[address] [place] [address], ?? CLIA Number [id number] Ketan Rees APRN, CNM LAB_1 Performing Organization Address City/State/ZIP Code Phon e Number HP CONVERSION Pap Smear (01/11/2015 9:48 AM CDT) Specimen (Source) Anatomical Collection Method Collection Time Re ceived Time Location / / Volume Laterality 01/11/2015 9:48 AM CDT Narrative HP CONVERSION - 01/15/2015 11:38 AM CDT Performed at [facility], [address] [place] [address] FINAL GYNECOLOGICAL CYTOLOGY REPORT Pathology #: [id number] ?Date Obtained: 01/11/2015 ? Date Received: 01/12/2015 INTERPRETATION/RESULTS: Negative for Intraepithelial Lesion or M alignancy. SPECIMEN ADEQUACY: Satisfactory for Evaluation. ??Endocervi dru cells/transformation zone component present. Verified on 01/15/2015 ??by CLOTILDE RALPH(ASCP) (electronic signature) CLINICAL NOTES: ?Abnormal bleeding: No, LMP: 7-1 8-15, Menstrual status: , ?Current form of therapy: None a pply LIQUID BASED PAP SMEAR SPECIMEN TYPE: ?ROUTINE CERVICAL PAP TEST PLEASE NOTE: The pap smear is a screening test design ed to aid in the detection of cervical cancer and its pre cursor lesions. It is not a diagnostic procedure and augustus uld not be used as the sole means of detecting cervical cancer. Both false-positive and false-negative report s may occur. ? End of Report Transcriptions 06/05/2016 2:45 AM CSTNotes Recorded by Mindy Diallo RN on 02/02/2015 at 9:12 Daly Latham, I am writing to let you know that your PAP result is negative. This means that your test result was normal. No cancer or precancerous cells were seen. Based on current cervical cancer screeni ng recommendations, your next PAP and HPV should be in 3 years. Continue to schedule your annual preventive exams for your overall health. If you have questions about cervical can cer screening or your test results, call Cervical Cancer Screening and Management [phone] Brantley RN on behalf ofDr. Radha Rivas, Software Validation Technician [facility] Cervical Cancer Screening and Management Ketan Rees APRN, QUIQUE LAB_1 Performing Organization Address City/[facility] Phon e Number HP CONVERSION Pap Test Order (01/11/2015 9:48 AM CDT) [facility] Method Time Signature Pap Smear Collected HP CONVERSION Monolayer tracking test Specimen Anatomical Collection Method Collection Time Receive d Time (Source) Location / / Volume Laterality 01/11/2015 9:48 AM 5 5:07 CDT AM CDT Narrative HP CONVERSION - 01/15/2015 11:33 [place] [address] Ketan Rees APRN, QUIQUE LAB_1 Performing Organization Address City/[facility] Phon e Number HP CONVERSION URINALYSIS ROUTINE(MICRO IF POS) (01/11/2015 9:48 AM CDT) [facility] Method Time Signature Urine Type Urine:clean HP [...] U Specific 1.015 1.005 - HP CONVERSION [place] 1.030 Urobilinogen Negative Negative HP CONVERSION Urine Eu/dL Specimen Anatomical Collection Method Collection Time Receive d Time (Source) Location / / Volume Laterality Urine: 01/11/2015 9:48 AM 5 CDT 10:39 AM CDT Narrative HP CONVERSION - 01/11/2015 10:46 AM CDT Performed at [facility],[address], [address] [place] [address] Ketan Rees APRN, QUIQUE LAB_1 Performing Organization Address City/State/ZIP Code Phon e Number HP CONVERSION documented in this encounter Visit Diagnoses Diagnosis Encounter for supervision of other sadie l , unspecified trimester - Primary Screening for malignant neoplasm of the cervix Screen for STD (sexually transmitted dis ease) Screening examination for venereal disea se Irregular periods/menstrual cycles Irregular menstrual cycle Screening for diabetes mellitus screening for isoimmunization Screening for unspecified disorder of bl ood and blood-forming organs Special screening examination for other specified viral diseases Screening examination for venereal disea se Screening examination for rubella Encounter for supervision of normal firs t in first trimester Supervision of normal first documented in this encounter Care Teams Torque Tester Relationship Specialty Start Date End Date Sharon Mijares MD PCP - General 07/30/10 [address] [place] [address] documented as of this encounter
--- OUTSIDE RECORDS SUMMARY | 2022-01-23 23:50 | XMS_ITS | Encounter Summary ---
:1985 Author Organization [facility] Address [address], [place] [address] Care Team Providers Name Role Phone Sharon Mijares MD Primary Care Provider [phone] Encounter Details Date Type Department Care Team Description 05/04/2009 PN Conversion Only ALIDA CONVERSION Sharon Mijares [address] [place] [address] [place], [place] [address] (Wo rk) Social History Tobacco Use Types Packs/Day Years Used Date Smoking Tobacco: Never Assessed Sex Assigned at Date Recorded Not on file documented as of this encounter Plan of Treatment Not on filedocumented as of this encounter Procedures Procedure Name Priority Date/Time Associated Comments Diagnosis HIV ANTIBODY Routine 05/04/2009 3:58 PM Results f or this CERTIFIED NOVELL ADMINISTRATOR procedure are i n the results section. RPR BLOOD Routine 05/04/2009 3:58 PM Results f or this CERTIFIED NOVELL ADMINISTRATOR procedure are i n the results section. SEXUALLY TRANSMITTED Routine 05/04/2009 3:58 PM R esults for this DISEASE PROBE CERTIFIED NOVELL ADMINISTRATOR procedure are in the results section. HEPATITIS C ANTIBODY, Routine 05/04/2009 3:58 PM Results for this WITH REFLEX CERTIFIED NOVELL ADMINISTRATOR procedure are i n the results section. documented in this encounter Results Sexually Transmitted Disease Probe (05/04/2009 3:58 PM CERTIFIED NOVELL ADMINISTRATOR) Patholo gist Method Time Signature Sexually SEE TEXT HP CONVERSION Transmitted Disease Probe Comment: Patient: NOA FRAGOSO Sexually Trans Disease Probe ?Collected: ??[id number] ??[id number] Source: Urine ? Processed: ??[id number] ??[id number] Final Report ------ ?[id number] ??[id number] No Chlamydia trachomatis detected by amp lified DNA assay No Neisseria gonorrhoeae detected by amp lified DNA assay Testing urine specimens from female dora ents as the sole test for chlamydial or gonoccocal infec tions may miss 17% and 13.8%, respectively, of infecte d individuals. The ProbePrepair Amplified DNA assay is juan red by the FDA for non-medicolegal diagnostic testing in the adult population. Specimen (Source) Anatomical Collection Method Collection Time Re ceived Time Location / / Volume Laterality 05/04/2009 3:58 PM CERTIFIED NOVELL ADMINISTRATOR Sharon Mijares MD LAB_1 Performing Organization Address City/State/ZIP Code Phon e Number HP CONVERSION Hepatitis C Antibody, with Reflex (05/04/2009 3:58 PM CERTIFIED NOVELL ADMINISTRATOR) Analysis Performed At Patho logist Time Signature Hepatitis C Non Reac Non Reac HP CONVERSION Antibody Specimen (Source) Anatomical Collection Method Collection Time Re ceived Time Location / / Volume Laterality 05/04/2009 3:58 PM CERTIFIED NOVELL ADMINISTRATOR Sharon Mijares MD LAB_1 Performing Organization Address City/State/ZIP Code Phon e Number HP CONVERSION HIV ANTIBODY (05/04/2009 3:58 PM CERTIFIED NOVELL ADMINISTRATOR) athologist Signature HIV 1/HIV 2 Non Reac Non Reac HP CONVERSION Specimen (Source) Anatomical Collection Method Collection Time Re ceived Time Location / / Volume Laterality 05/04/2009 3:58 PM CERTIFIED NOVELL ADMINISTRATOR Sharon Mijares MD LAB_1 Performing Organization Address City/[facility]/ZIP Code Phon e Number HP CONVERSION RPR BLOOD (05/04/2009 3:58 PM CERTIFIED NOVELL ADMINISTRATOR) athologist Signature RPR Non Reac Non Reac HP CONVERSION Specimen (Source) Anatomical Collection Method Collection Time Re ceived Time Location / / Volume Laterality 05/04/2009 3:58 PM CERTIFIED NOVELL ADMINISTRATOR Sharon Mijares MD LAB_1 Performing Organization Address City/[facility]/ZIP Code Phon e Number HP CONVERSION documented in this encounter Visit Diagnoses Not on filedocumented in this encounter Care Teams Sales Ambassador Relationship Specialty Start Date End Date Sharon Mijares MD PCP - General 07/30/10 [address] [place] [address] documented as of this encounter
--- OUTSIDE RECORDS SUMMARY | 2022-01-23 23:50 | XMS_ITS | Encounter Summary ---
:1985 Author Organization [facility] Address [address], [place] [address] Care Team Providers Name Role Phone Sharon Mijares MD Primary Care Provider [phone] Encounter Details Date Type Department Care Team Description 09/06/2014 Notes/Orders [place] Maribell Loving SAB (spontan eous Obstetrics/Gynecolog y MIXING SUPERVISOR, DIRECTOR MUSEUM OR ZOO ) (Primary Dx) [address] [facility] [address] [facility] [address] [place] [address] [phone] Social History Tobacco Use Types Packs/Day Years Used Date Smoking Tobacco: Never Assessed Sex Assigned at Date Recorded Not on file documented as of this encounter Plan of Treatment Not on filedocumented as of this encounter Visit Diagnoses Diagnosis SAB (spontaneous ) - Primary Unspecified spontaneous without mention of complication documented in this encounter Care Teams Automation Qa Analyst Relationship Specialty Start Date End Date Sharon Mijares MD PCP - General 07/30/10 [address] [place] [address] documented as of this encounter
--- OUTSIDE RECORDS SUMMARY | 2022-01-23 23:50 | XMS_ITS | Encounter Summary ---
:1985 Author Organization [facility] Address [address] [address] Care Team Providers Name Role Phone Sharon Mijares MD Primary Care Provider [phone] Encounter Details Date Type Department Care Team Description 09/04/2014 Notes/Orders [place] Maribell Loving, CUSTOMER MANAGER, Obstetrics/Gynecolog y CRANE SERVICE TECHNICIAN [address] [place] [address], [address] [place], [place] [address] [place] [phone] Social History Tobacco Use Types Packs/Day Years Used Date Smoking Tobacco: Never Assessed Sex Assigned at Date Recorded Not on file documented as of this encounter Plan of Treatment Not on filedocumented as of this encounter Visit Diagnoses Not on filedocumented in this encounter Care Teams Medical Concierge Relationship Specialty Start Date End Date Sharon Mijares MD PCP - General 07/30/10 [address] [place] [address] documented as of this encounter
--- OUTSIDE RECORDS SUMMARY | 2022-01-23 23:50 | XMS_ITS | Encounter Summary ---
:[address] [facility] Address [address], [place] [address] Care Team Providers Name Role Phone Sharon Mijares MD Primary Care Provider [phone] Reason for Visit Reason Comments Other Encounter Details Date Type Department Care Team Description 02/20/2009 Telephone [facility] Mariah Graff, SALES INSPECTOR, Other [address] [place], [place] [address] [place] [address] [address] [place], [place] [address] (Wo rk) Social History Tobacco Use Types Packs/Day Years Used Date Smoking Tobacco: Never Assessed Sex Assigned at Date Recorded Not on file documented as of this encounter [facility], Message - 02/20/2009 3:20 PM CDT Phone Note filed by [employer] at 08/16/10 1502 Author: [employer] Service: (none) Author Type: (none) Filed: 08/16/10 1502 Note Time: 02/20/09 1520 Status: Signed [employer] Oven Mason: [employer] (Resource) Lab/Radiology Results Caller Name/Relationship: Noa mitchell Primary Card Services Specialist: Mariah Graff What test result is needed? US When and where was test done? 02/19/09 [facility] Who ordered the test? Mariah Graff Environmental Geologist: Noa pt Best call back number: [phone] Is it OK to leave a confidential message on this voicemail? yes *[id number] Created on 20Feb2009 3:20pm by KAMRYN ROSALES P On 20Feb2009 3:23pm LENI POPE wrote: pt calling for results of US done today On 20Feb2009 4:29pm MARIAH GRAFF wrote: normal, she is doing better. continue Miralax Acknowledged by MARIAH GRAFF on 4:29pm OR MAID documented in this encounter Plan of Treatment Not on filedocumented as of this encounter Visit Diagnoses Not on filedocumented in this encounter Care Teams Front End Driver Relationship Specialty Start Date End Date Sharon Mijares MD PCP - General 07/30/10 [address] [place] [address] documented as of this encounter
--- OUTSIDE RECORDS SUMMARY | 2022-01-23 23:50 | XMS_ITS | Encounter Summary ---
:1985 Author Organization [facility] Address [address], [place] [address] Care Team Providers Name Role Phone Sharon Mijares MD Primary Care Provider [phone] Encounter Details Date Type Department Care Team Description 09/01/2014 Hospital Encounter [facility] Vaginal bleeding in pregnanc y, first trimester; [address] Unspecified antepartum hemor rhage, antepartum [place], [place] [address] Social History Tobacco Use Types Packs/Day Years Used Date Smoking Tobacco: Never Assessed Sex Assigned at Date Recorded Not on file documented as of this encounter Medications at Time of Discharge Medication Sig Dispensed Refills Start Date End Date unknown medication Indications: PN: 0 02/13/2009 01/11/2015 documented as of this encounter Progress Notes Mariza Haas - 09/01/2014 11:59 PM CDT Quick Note: Left message for patient by phone and sent mychart message. Blood type is A positive. documented in this encounter Miscellaneous Notes Miscellaneous - 09/01/2014 11:59 PM CDTNotes Recorded by Mariza Haas MD on 09/02/2014 at 1:07 PMLeft message for patient by phone and sent mychart message. Blood type is A positive. NESS LIAISON OFFICER Miscellaneous - 09/01/2014 11:59 PM CDTNotes Recorded by Mariza Haas MD on 09/02/2014 at 1:07 PMLeft message for patient by phone and sent [employer] message. Blood type is A positive. NESS LIAISON OFFICER documented in this encounter Plan of Treatment Not on filedocumented as of this encounter Procedures Procedure Name Priority Date/Time Associated Diagnosis Comme nts BLOOD GROUP & RH Routine 09/01/2014 1:45 PM Vaginal bleeding i n Results for this (BT) CDT , first procedure a re in trimester the results Unspecified section. antepartum hemorrhage, antepartum ANTIBODY SCREEN Routine 09/01/2014 1:45 PM Result s for this CDT procedure are i n the results section. documented in this encounter Results ANTIBODY SCREEN (09/01/2014 1:45 PM CDT) athologist Signature Antibody Screen NEG HP CONVERSION Specimen Anatomical Collection Method Collection Time Receive d Time (Source) Location / / Volume Laterality 09/01/2014 1:45 PM 5 9:20 CDT AM CDT Narrative HP CONVERSION - 09/02/2014 10:47 AM CDT Performed at [address] [address] Transcriptions 09/01/2014 11:59 PM CDTNotes Recorded by Mariza Haas MD on 09/02/2014 at 1:07 PMLeft message for patient by phone and sent [employer] message. Blood type is A positive. Kaitlyn Pritchett MD PN BLOOD BANK ORDERS Performing Organization Address City/State/ZIP Code Phon e Number HP CONVERSION BLOOD GROUP & RH (BT) (09/01/2014 1:45 PM CDT) athologist Signature Blood Type A POS HP CONVERSION Specimen Anatomical Collection Method Collection Time Receive d Time (Source) Location / / Volume Laterality 09/01/2014 1:45 PM 5 9:20 CDT AM CDT Narrative HP CONVERSION - 09/02/2014 10:47 AM CDT Performed at [address], [place] [address] Transcriptions 09/01/2014 11:59 PM CDTNotes Recorded by Mariza Haas MD on 09/02/2014 at 1:07 PMLeft message for patient by phone and sent [employer] message. Blood type is A positive. Kaitlyn Pritchett MD PN BLOOD BANK ORDERS Performing Organization Address City/State/ZIP Code Phon e Number HP CONVERSION documented in this encounter Visit Diagnoses Diagnosis Vaginal bleeding in , first tri mester Unspecified antepartum hemorrhage, antep artum documented in this encounter Care Teams Canoe Maker Relationship Specialty Start Date End Date Sharon Mijares MD PCP - General 07/30/10 [address] [place] [address] documented as of this encounter
--- OUTSIDE RECORDS SUMMARY | 2022-01-23 23:50 | XMS_ITS | Encounter Summary ---
:1985 Author Organization [facility] Address [address] [place] [address] Care Team Providers Name Role Phone Sharon Mijares MD Primary Care Provider [phone] Encounter Details Date Type Department Care Team Description 09/06/2014 Lab Visit [facility] Threatened miscarriage [address] [place], [place] [address] Social History Tobacco Use Types Packs/Day Years Used Date Smoking Tobacco: Never Assessed Sex Assigned at Date Recorded Not on file documented as of this encounter Plan of Treatment Not on filedocumented as of this encounter Procedures Procedure Name Priority Date/Time Associated Diagnosis Comme nts HCG, QUANTITATIVE, Routine 09/06/2014 9:55 AM Threatened Res ults for this SERUM CDT miscarriage procedure ar e in the results section. documented in this encounter Results (ABNORMAL) HCG, Quantitative, Serum (09/06/2014 9:55 AM CDT) P athologist Signature HCG For 64 (H) 0 - 6 HP CONVERSION mIU/L Comment: ? Reference Ranges 0-1 week ? 5-50 1-2 weeks ?50-500 2-3 weeks ?100-5,000 3-4 weeks ?500-10,000 1-2 months ? 1,000-200,0 00 2-3 months ? 15,000-200, 000 2nd trimester ? - - - - 3rd trimester ? - - - - Tumor marker ? <5 Consider heterophile antibody interferen ce in women of child-bearing age if serum HCG is persis tently elevated to a mild degree over a period of several wee ks or months. Confirmation with a urine test or serum HCG by an alternate test method may be helpful. He terophile antibodies occur in 1% of the general population an d may interfere with any serum immunoassay (many common prote in, hormone, and tumor marker tests). Specimen Anatomical Collection Method Collection Time Receive d Time (Source) Location / / Volume Laterality 09/06/2014 9:55 AM 5 CDT 12:33 PM CDT Narrative HP CONVERSION - 09/06/2014 1:41 PM CDT Performed at [facility], [address] [place] [address] Maribell Loving APRN, CONFERENCE SERVICES DIRECTOR LAB_1 Performing Organization Address City/State/[facility] Code Phon e Number HP CONVERSION documented in this encounter Visit Diagnoses Diagnosis Threatened miscarriage Threatened , unspecified as to e pisode of care documented in this encounter Care Teams Blood Bank Technologist Relationship Specialty Start Date End Date Sharon Mijares MD PCP - General 07/30/10 [address] [place] [address] documented as of this encounter
--- OUTSIDE RECORDS SUMMARY | 2022-01-23 23:50 | XMS_ITS | Encounter Summary ---
:1985 Author Organization [facility] Address [address] [address] Care Team Providers Name Role Phone Sharon Mijares MD Primary Care Provider [phone] Reason for Visit Reason Comments Refill Encounter Details Date Type Department Care Team Description 02/14/2015 Refill [place] MD Refill Obstetrics/Gynecolog [address], [place] [address] [address] [place], [place] [phone] Social History Tobacco Use Types Packs/Day Years Used Date Smoking Tobacco: Never Assessed Sex Assigned at Date Recorded Not on file documented as of this encounter Nursing Notes Ally Murphy RN - 02/14/2015 1:55 PM CDT Patient called and states that she started Zofran last week for her nausea. She states that this is giving her headaches that are not relieved by tylenol. She states that she has her first appointment with Dr. Crockett on Thursday but would like to try something else for her nausea before then- please advise in Dr. Crockett's absence. Maritza Murphy RN documented in this encounter Plan of Treatment Not on filedocumented as of this encounter Visit Diagnoses Not on filedocumented in this encounter Care Teams Quality Control Projectionist Relationship Specialty Start Date End Date Sharon Mijares MD PCP - General 07/30/10 [address] [place] [address] documented as of this encounter
--- OUTSIDE RECORDS SUMMARY | 2022-01-23 23:50 | XMS_ITS | Encounter Summary ---
:1985 Author Organization [employer] Address [address], [place] [address] Care Team Providers Name Role Phone Sharon Mijares MD Primary Care Provider [phone] Encounter Details Date Type Department Care Team Description 09/02/2014 Notes/Orders [place] Shreyas, Kaitlyn A, Vaginal bl eeding in , first trimester (Primary Dx); Obstetrics/Gynecolog y MD Unspecified antepartum hemorrhage, antep artum [address] [place] [address] Social History Tobacco Use Types Packs/Day Years Used Date Smoking Tobacco: Never Assessed Sex Assigned at Date Recorded Not on file documented as of this encounter Plan of Treatment Not on filedocumented as of this encounter Visit Diagnoses Diagnosis Vaginal bleeding in , first tri mester - Primary Unspecified antepartum hemorrhage, antep artum documented in this encounter Care Teams Immunology Teacher Relationship Specialty Start Date End Date Sharon Mijares MD PCP - General 07/30/10 [address] [place] [address] documented as of this encounter
--- OUTSIDE RECORDS SUMMARY | 2022-01-23 23:50 | XMS_ITS | Encounter Summary ---
:[address] Address [address] [address] Care Team Providers Name Role Phone Sharon Mijares MD Primary Care Provider [phone] Encounter Details Date Type Department Care Team Description 09/01/2014 Lab Visit [facility] Vaginal bleeding in [address] [place] [address] [address] , first [place] [address] [facility] [phone] Social History Tobacco Use Types Packs/Day Years Used Date Smoking Tobacco: Never Assessed Sex Assigned at Date Recorded Not on file documented as of this encounter Plan of Treatment Not on filedocumented as of this encounter Procedures Procedure Name Priority Date/Time Associated Diagnosis Comme nts ABO BLOOD TYPE Routine 09/01/2014 1:45 PM Vaginal bleeding in Results for this CDT , first procedure a re in trimester the results section. HCG, QUANTITATIVE, Routine 09/01/2014 1:45 PM Vaginal bleeding in Results for this SERUM CDT , first procedur e are in trimester the results section. documented in this encounter Results ABO BLOOD TYPE (09/01/2014 1:45 PM CDT) P athologist Signature ABO Blood Type A HP CONVERSION Specimen Anatomical Collection Method Collection Time Receive d Time (Source) Location / / Volume Laterality 09/01/2014 1:45 PM 5 6:16 CDT PM CDT Narrative HP CONVERSION - 09/02/2014 7:28 AM CDT Performed at [facility], [facility] [place] [address] Kaitlyn Pritchett MD PN BLOOD BANK ORDERS Performing Organization Address [facility] Phon e Number HP CONVERSION (ABNORMAL) HCG, Quantitative, Serum (09/01/2014 1:45 PM CDT) athologist Signature HCG For 140 (H) 0 - 6 HP CONVERSION mIU/L [...] / Volume Laterality 09/01/2014 1:45 PM 5 6:18 CDT PM CDT Narrative HP CONVERSION - 09/01/2014 7:13 PM CDT Performed at [facility], [address] [place] [address] Kaitlyn Pritchett MD LAB_1 Performing Organization Address [facility] Phon e Number HP CONVERSION documented in this encounter Visit Diagnoses Diagnosis Vaginal bleeding in , first tri mester documented in this encounter Care Teams Print Line Inspector Relationship Specialty Start Date End Date Sharon Mijares MD PCP - General 07/30/10 [address] [place] [address] documented as of this encounter
--- OUTSIDE RECORDS SUMMARY | 2022-01-23 23:50 | XMS_ITS | Encounter Summary ---
:1985 Author Organization [facility] Address [address], [place] [address] Care Team Providers Name Role Phone Sharon Mijares MD Primary Care Provider [phone] Reason for Visit Reason Comments Follow-up Encounter Details Date Type Department Care Team Description 09/04/2014 Initial Consult Maribell Harris Threatene d in early (Primary Dx); Obstetrics/Gynecolog y GABBY SOARES Gestational age unknown [address] [facility] [address] [facility] [address] [place] [address] [phone] Social History Tobacco Use Types Packs/Day Years Used Date Smoking Tobacco: Never Assessed Sex Assigned at Date Recorded Not on file documented as of this encounter Last Filed Vital Signs Vital Sign Reading Time Taken Comments Blood Pressure 122/59 09/04/2014 10:06 AM CDT Pulse 79 09/04/2014 10:06 AM CDT Temperature - - Respiratory Rate - - Oxygen Saturation - - Inhaled Oxygen Concentration - - Weight 72 kg (158 lb 11.2 oz) 09/04/2014 10:06 AM CDT Height - - Body Mass Index - - documented in this encounter Patient Instructions Patient InstructionsMaribell Loving APRN, CNP - 09/04/2014 10:43 AM CDT HCG today should be around 400, give or take. Plan US on or after next Thursday. If you have any questions, please call [phone]. Thank you! Maribell Loving APRN, CNP [facility] documented in this encounter Progress Notes Maribell Loving APRN, CNP - 09/04/2014 11:03 AM CDT Clinic Visit CC: Patient presents for follow up threatened AB. History of present illness: 28 YO here for follow up threatened AB. Was seen on 09/01/[address] Pritchett. HCG level was 140 on 09/01/14. Since 09/01/14, she has only occasional brown spotting with wiping. No cramping or pain. Constipated. Past Medical History: History reviewed. No pertinent past medical history. Surgical History: History reviewed. No pertinent past surgical history. Adverse Drug Reactions: Monistat 1 (tioconazole) Medications: Current Outpatient Prescriptions Medication Sig Dispense Refill ??? patient not taking any chronic medication No current facility-administered medications for this visit. Social History: History Social History ??? Marital Status: Single Spouse Name: N/A Number of Children: N/A ??? Years of Education: N/A Social History Main Topics ??? Smoking status: Never Smoker ??? Smokeless tobacco: None ??? Alcohol Use: None Comment: Alcoholic Drinks/day: Amount:1-2 drinks; Freq:2-4/Month ; ??? Drug Use: None ??? Sexual Activity: None Other Topics Concern ??? None Social History Narrative Review of Systems: Pertinent items are noted in HPI. OBJECTIVE: Vital Signs: LMP Vitals Item Reading ??? BP 122/59 ??? Pulse 79 ??? Wt 158 lb 11.2 oz (71.986 kg) ??? LMP 07/27/2014 General: Patient is well-appearing and in no acute distress, She moves easily about the room and hasan appropriate affect. No exam performed today, no exam indicated. ASSESSMENT/PLAN: Follow up Threatened AB: Will get HCG today and plan on US in one week. warning sx reviewed. Total time: 15 min. Counseling time: 15min. Counseled on SAB sx, plan for follow up. Maribell Loving APRN, CNP 09/04/2014 documented in this encounter Plan of Treatment Not on filedocumented as of this encounter Visit Diagnoses Diagnosis Threatened in early - Primary Threatened , unspecified as to e pisode of care Gestational age unknown Unspecified weeks of gestation documented in this encounter Care Teams Creative Resource Manager Relationship Specialty Start Date End Date Sharon Mijares MD PCP - General 07/30/10 [address] [place] [address] documented as of this encounter
--- OUTSIDE RECORDS SUMMARY | 2022-01-23 23:50 | XMS_ITS | Encounter Summary ---
:1985 [facility] Address [address], [place] [address] Care Team Providers Name Role Phone Sharon Mijares MD Primary Care Provider [phone] Encounter Details Date Type Department Care Team Description 01/11/2015 Imaging [facility] Ul[facility]ound Irregular periods/menstrual [address] [place] [address] Social History Tobacco Use Types Packs/Day Years Used Date Smoking Tobacco: Never Assessed Sex Assigned at Date Recorded Not on file documented as of this encounter Plan of Treatment Not on filedocumented as of this encounter Procedures Procedure Name Priority Date/Time Associated Diagnosis Comme nts US OB <14 WEEKS W Routine 01/11/2015 10:53 AM Irregular Res ults for this EV SINGLE CDT periods/menstrual procedure are in cycles the results section. documented in this encounter Results US OB <14 Weeks W EV Single (01/11/2015 10:53 AM CDT) Anatomical Region Laterality Modality Pelvis Other Specimen (Source) Anatomical Location Collection Method / Collectio n Time Received Time / Laterality Volume Impressions 01/11/2015 11:02 AM CDT IMPRESSION: Single living intrauterine with ultrasound gestational age of 8 weeks 5 days. Narrative 01/11/2015 11:02 AM CDT COMPARISON: 12/27/2014 TECHNIQUE: ??Transabdominal and transvag inal imaging was performed. ?? FINDINGS: Gestational sac: Unremarkable. Yolk sac measures 4 mm. [place]-rump length measures 2.1 cm, corre sponding to 8w5d gestational age. ?? JAMIE 08/18/2015. ?? Embryonic/ cardiac activity is iden tified with heart rate 178 bpm. ?? Right Ovary: Measures 2.2 x 1.3 x 1.9 cm and appears unremarkable with normal blood flow. Left Ovary: Measures 3.3 x 2.1 x 2.2 cm and demonstrates a probable 2.1 cm corpus luteum cyst. There is normal blood flow to the left ovary. No suspicious adnexal masses. Free Fluid: No significant free fluid. Procedure Note Manoj Mckinley MD - 10/14/2015Formatti ng of this note might be different from the original. COMPARISON: 12/27/2014 TECHNIQUE: Transabdominal and transvagin al imaging was performed. FINDINGS: Gestational sac: Unremarkable. Yolk sac measures 4 mm. [place]-rump length measures 2.1 cm, corre sponding to 8w5d gestational age. JAMIE 08/18/2015. Embryonic/ cardiac activity is iden tified with heart rate 178 bpm. Right Ovary: Measures 2.2 x 1.3 x 1.9 cm and appears unremarkable with normal blood flow. Left Ovary: Measures 3.3 x 2.1 x 2.2 cm and demonstrates a probable 2.1 cm corpus luteum cyst. There is normal blood flow to the left ovary. No suspicious adnexal masses. Free Fluid: No significant free fluid. IMPRESSION IMPRESSION: Single living intrauterine p regnancy with ultrasound gestational age of 8 weeks 5 days. Ketan Rees APRN, CNM RAD US documented in this encounter Visit Diagnoses Diagnosis Irregular periods/menstrual cycles Irregular menstrual cycle documented in this encounter Care Teams Car Washer Relationship Specialty Start Date End Date Sharon Mijares MD PCP - General 07/30/10 [address] [place] [address] documented as of this encounter
--- OUTSIDE RECORDS SUMMARY | 2022-01-23 23:50 | XMS_ITS | Encounter Summary ---
:1985 Author Organization [facility] Address [address] [address] Care Team Providers Name Role Phone Sharon Mijares MD Primary Care Provider [phone] Reason for Visit Reason Comments CONSULT Encounter Details Date Type Department Care Team Description 09/01/2014 Initial Consult Kaitlyn Vizcaino Vaginal bl eeding in Obstetrics/Gynecolog migue Cummings MD , first [address] ster ([address]) [place] [address] [phone] Social History Tobacco Use Types Packs/Day Years Used Date Smoking Tobacco: Never Assessed Sex Assigned at Date Recorded Not on file documented as of this encounter Progress Notes Kaitlyn Pritchett MD - 09/01/2014 1:52 PM CDT Clinic Visit CC: Vaginal bleeding in early History of present illness: This is a 28 y.o.R3O7tmbbjg who presents for evaluation of the above. She reports a certain LMP of 07/27/14. She had a positive test on Thursday. She was having a little bit of cramping throughout the week, and then had some bright red blood this morning when she woke up. She wiped it was brightred, but since then has been more of a light brown. She describes a mild amount of left abdominal pain but states it is much higher up. She states that her cycles are fairly regular. He is to always beevery 28 days however recently she occasionally has them every 33 days. This would put her at somewhere between 4 and 5 weeks . Her spotting is mild. She denies any severe pain. Past Medical History: History reviewed. No pertinent past medical history. Surgical History: History reviewed. No pertinent past surgical history. Adverse Drug Reactions: Review of patient's allergies indicates no known allergies. Medications: Current Outpatient Prescriptions Medication Sig Dispense [...] Systems: Pertinent items are noted in HPI. Family History: History reviewed. No pertinent family history. OBJECTIVE: Vital Signs: LMP Vitals Item Reading ??? LMP 07/27/2014 BMI@ Physical exam: [facility] 07/27/2014 General: patient is well groomed, normal body habitus Abdomen: soft, nontender, no guarding; no liver or spleen enlargement; no hernias Gynecologic: External - Normal appearance without skin changes or lesions. Bartholin's, Meno's glands and urethral meatus normal. Speculum - Normal vagina and cervix with healthy appearing mucosa and no lesions. No abnormal discharge. Small amount of dark blood in the vagina Cervix normal and closed Bimanual - Uterus: Anteverted and normal in size, shape, and consistency. Uterus mobile. No CMT Adenexa: No masses or tenderness bilaterally. Bladder: Nontender, no palpable masses Rectal: no external lesions Assessment: Vaginal bleeding in early Plan: Informal ultrasound done that shows good decidual reaction. No obvious adnexal masses. Plan to get ablood type today and a beta-hCG. We discussed serial quants. We discussed what constituted an appropriate rise. Given her reassuring exam and no pain today, will plan on a followup beta hCG on Thursday. Ectopic precautions were given. Discussed the 3 possible outcomes are a viable , miscarriage, or ectopic . Given her exam today, I am cautiously optimistic. If she experiences significantly heavier bleeding, she should come in. She should call if she starts to soak through more than apad an hour for 2 hours, or if she gets dizzy or lightheaded. She should call with severe pain. She had her questions answered to her satisfaction. Blood type today. We discussed Rhogam. More than 25 minutes total time was spent with patient with greater than 50% or 20 minutes in face to face counseling and coordination of care. Kaitlyn Pritchett HASHER MACHINE OPERATOR [facility] 1:36 PM documented in this encounter Plan of Treatment Not on filedocumented as of this encounter Visit Diagnoses Diagnosis Vaginal bleeding in , first tri mester - Primary documented in this encounter Care Teams Communication Professor Relationship Specialty Start Date End Date Sharon Mijares MD PCP - General 07/30/10 [address] [place] [address] documented as of this encounter
--- OUTSIDE RECORDS SUMMARY | 2022-01-23 23:50 | XMS_ITS | Encounter Summary ---
:1985 Author Organization [facility] Address [address], [place] [address] Care Team Providers Name Role Phone Sharon Mijares MD Primary Care Provider [phone] Reason for Visit Reason Comments Routine Visit Encounter Details Date Type Department Care Team Description 02/16/2015 Routine MasuryHarika Deleon Routine Obstetrics/Gynecolog MD Miguelina Visit y [address] [address] [address] [place] [id number] Social History Tobacco Use Types Packs/Day Years Used Date Smoking Tobacco: Never Assessed Sex Assigned at Date Recorded Not on file documented as of this encounter Last Filed Vital Signs Vital Sign Reading Time Taken Comments Blood Pressure 110/76 02/16/2015 3:29 PM CDT Pulse - - Temperature - - Respiratory Rate - - Oxygen Saturation - - Inhaled Oxygen Concentration - - Weight 71.7 kg (158 lb) 02/16/2015 3:29 PM CDT Height - - Body Mass Index 28.9 01/11/2015 8:43 AM CDT documented in this encounter Progress Notes Covert, Harika Mcintyre MD - 02/17/2015 7:18 PM CDT NOB2 - SECOND OB VISIT Chief Complaint: HPI: 29 y.o. female at 13w6d by her LMP (Patient's last menstrual period was 11/11/2014.) that is consistent with a 8 week US. Her EDC is: Estimated Date of Delivery: 08/18/15. She is a new patient to me. She is a new patient to our clinic for this . She is here for her second visit this - first with an MD. She is feeling marginally. She complains of nausea and morning sickness. Taking Unisom, Vit B6, Also zofran - gets headache with the zofran. Not taking reglan due to mood effects. Laboratory Review: Routine NOB labs were Normal. Blood type is A pos. Review of Systems: A complete Review of Systems was negative except for as listed above/below Problem List: Patient Active Problem List Diagnosis ??? Teeth Loss Extraction ??? Headache ??? Encounter for supervision of normal first in first trimester ??? 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 Migraine, unspecified, without mention of intractable migraine without mention of status migrainosus ??? Varicella Past Surgical Hx: Past Surgical History Procedure Laterality Date ??? [place] tooth extraction Social Hx: History Social History ??? Marital Status: Spouse Name: Zachary Number of Children: N/A ??? Years of [...] ??? Weight Concern No Social History Narrative Family Hx: Family History Problem Relation Age of Onset ??? Hypertension Father ??? Osteoporosis Maternal Grandmother Medications: Current Outpatient Prescriptions on File Prior to Visit Medication Sig Dispense Refill ??? doxylamine succinate (UNISOM) 25 mg tablet Take 1 tablet by mouth at bedtime as needed for Sleep. 30 tablet 1 ??? metoclopramide (REGLAN) 10 mg tablet Take 1 tablet by mouth 4 times daily (before meals and bedtime). 30 tablet 0 ??? ondansetron (ZOFRAN) 4 mg tablet Take 4 mg by mouth every 8 hours as needed for Nausea or Vomiting. 1-2 tablets as needed Indications: EXCESSIVE VOMITING IN ? ? VIT W-CA,FE,FA,<1 MG, ( #2 ORAL) Take by mouth. ??? pyridoxine (VITAMIN B6) 25 mg tablet Take 1 tablet by mouth daily (every 24 hours) for 30 days. 60 tablet 0 No current facility-administered medications on file prior to visit. Allergies: Allergies Allergen Reactions ??? Monistat 1 (Tioconazole) [Tioconazole] Redness Physical Exam: LMP Vitals Item Reading ??? LMP 11/11/2014 Pt is well-appearing, in no acute distress. Her affect is appropriate. She appears well. Abd exam: Soft, nontender. heart tones are auscultated with doptone at 160 beats per minute. Extremities are without calf pain or edema bilaterally ASSESSMENT: 29 y.o. female at 13w6d weeks EGA. is not complicated. PLAN: 1. Patient counseled about current - including routine counseling about healthy diet, exercise, fluid intake and sleep in . We discussed the importance of avoiding tobacco, alcohol and drug use during , as well as the importance of taking vitamins with DHA daily. We discussed childbirth education classes and hospital tours. We discussed typical schedule for visits. The patient was encouraged to call the clinic at any time with questions or concerns. 2. Plan delivery [place] [facility] 3. All routine labs were reviewed. Patient was counseled about aneuploidy screening options, genetic counseling and this testing is: Declined by the patient. 4. Level I is planned for 19-21 weeks. 5. Next visit is to be scheduled in 4 weeks. 6. Nausea - continue with unisom and vit b6 - has rx for zofran prn -- gave rx for Fioricet for headaches as needed. 7. with HSV - will use antivirals for patient last month of . Harika Mcintyre Covert 02/16/2015 3:29 PM documented in this encounter Plan of Treatment Not on filedocumented as of this encounter Visit Diagnoses Diagnosis Encounter for supervision of normal firs t in first trimester - Primary Supervision of normal first Exposure to genital herpes Contact with or exposure to other viral diseases Needs flu shot Need for prophylactic vaccination and in oculation against influenza Tension-type headache, not intractable, unspecified chronicity pattern documented in this encounter Care Teams Rn Research Relationship Specialty Start Date End Date Sharon Mijares MD PCP - General 07/30/10 [address] [place] [address] documented as of this encounter
--- OUTSIDE RECORDS SUMMARY | 2022-01-23 23:50 | XMS_ITS | Encounter Summary ---
:1985 Author Organization [facility] Address [address], [place] [address] Care Team Providers Name Role Phone Moisés Mijares MD Primary Care Provider [phone] Encounter Details Date Type Department Care Team Description 05/04/2009 Office Visit [facility] Moisés Mijares, [address] [place] [place] [address] [facility] [phone] [place], [place] [address] (Wo rk) Social History Tobacco Use Types Packs/Day Years Used Date Smoking Tobacco: Never Assessed Sex Assigned at Date Recorded Not on file documented as of this encounter Last Filed Vital Signs Vital Sign Reading Time Taken Comments Blood Pressure 132/87 05/04/2009 3:28 PM UNDERWATER WELDER Pulse 72 05/04/2009 3:28 PM UNDERWATER WELDER Temperature - - Respiratory Rate - - Oxygen Saturation - - Inhaled Oxygen Concentration - - Weight - - Height - - Body Mass Index - - documented in this encounter Progress Notes Moisés Mijares MD - 05/04/2009 12:01 AM CST Progress Notes signed by Moisés Mijares MD at 05/19/09 8021 Author: Moisés Mijares MD Service: (none) Author Type: Physician Filed: 08/17/10 192 Note Time: 05/04/09 0001 Status: Signed Special Systems Technician: Moisés Mijares MD (Physician) NAME: NOA FRAGOSO MR#: [id number] ACCT: [id number] VISIT: [id number] DICTATING CLINICIAN: MOISÉS MIJARES MD CONFIRM #: [id number] LOC: 2802 CLINIC PROGRESS NOTE DATE OF VISIT: 05/04/2009 SUBJECTIVE: CHIEF COMPLAINT: Multiple concerns. HPI: A 23-year-old new patient to me comes in for several things. First, she has had some abdominal pain. This was 1st noted back in January. She ended up being seen and having an ultrasound and a CT scan of her abdomen, both of which were normal. She relates now that it seems like it is occurring around the time of her menses, within the 1st few days prior to and through her menses. She just sort of figured that out. Her periods are regular. She is not currently sexually active. She is not doing anything for contraception. She has never been on the pill. Her periods in general are fairly regular. She has not tried doing ibuprofen prior to the onset of the pain or onset of menses to alleviate this. She has no change in bowel movements associated with the pain. Her bowel movements do tend to be more loose when she is actually menstruating. She has had no nausea or vomiting. Wonders about reflux. It happens intermittently. It may happen once and be terrible for a day the whole day and then get better for 3 or 4 days, then come back. She is not choking on food or has any food sticking. She has never tried Prilosec. She has had no black or bloody stools. Complains of a rash on her left shoulder. It has been present for several months. It does not itch that she knows of but maybe does every once in a while. A little bit on her left forearm. She has not tried anything for it. It has not spread. Has never had a Pap smear. Has an STD concern. She has been sexually active on 1 occasion. It was a consensual event associated with alcohol use back more than a year ago. She thinks she would like to have STD screen but has not been sure she has wanted to do a Pap smear. OBJECTIVE: VS: Reviewed in LastWord flow sheet. Well appearing. She is alert and oriented. Affect is normal. Lids and conjunctivae are normal. NECK: Supple. No adenopathy. No thyromegaly. CARDIOVASCULAR: Regular rate and rhythm without murmur. CHEST: Clear to auscultation bilaterally. ABDOMEN: Soft, nontender, nondistended. No hepatosplenomegaly appreciated. EXTREMITIES: Well perfused. There is no edema. SKIN: She has thickened, hypertrophic skin on her left shoulder and on her right wrist consistent with eczema. ASSESSMENT: Dysmenorrhea, reflux, eczema, STD concern. PLAN: Will get a urine GC and chlamydia screen, encouraged Pap smear. Start doing NSAID 5 days prior to onset of cramping. Prilosec on a daily basis for 3-4 weeks. Follow up for Pap smear. DARIN:[id number] C: 05/05/09 08:04 CONFIRM #: [id number] RWATER WELDER documented in this encounter Plan of Treatment Not on filedocumented as of this encounter Visit Diagnoses Not on filedocumented in this encounter Care Teams Resourcing Consultant Relationship Specialty Start Date End Date Moisés Mijares MD PCP - General 07/30/10 [address] [place] [address] documented as of this encounter
--- OUTSIDE RECORDS SUMMARY | 2022-01-23 23:50 | XMS_ITS | Encounter Summary ---
:1985 Author Organization [facility] Address [address] [address] Care Team Providers Name Role Phone Sharon Mijares MD Primary Care Provider [phone] Reason for Visit Reason Comments Questions Encounter Details Date Type Department Care Team Description 01/11/2015 Telephone Ketan Garcia APRN, Ques tions Obstetrics/Gynecolog y [address], [id number] [place] [phone] Social History Tobacco Use Types Packs/Day Years Used Date Smoking Tobacco: Never Assessed Sex Assigned at Date Recorded Not on file documented as of this encounter Nursing Notes Jany Giraldo RN - 01/15/2015 8:53 AM CDT Informed pt of Cabrera's message below, Patient verbalizes understanding of instructions/plan. Arabella Estrella RN - 01/15/2015 8:46 AM CDT Left Voicemail message for patient to call back. Ketan Rees APRN, CNM - 01/14/2015 5:31 PM CDT Rx for vitamin B6 and unisom. We won't change her due date since its just 3 days off from her LMP dating. Thanks Ally Murphy RN - 01/11/2015 3:15 PM CDT Noa Franco was seen today and she had a question regarding the dating on her Ultrasound and if her JAMIE will change since today's US is different. She also had a question about if Vit B6 and Unisom can be called as a RX-please advise Maritza Murphy RN documented in this encounter Plan of Treatment Not on filedocumented as of this encounter Visit Diagnoses Not on filedocumented in this encounter Care Teams Senior Sharepoint Architect Relationship Specialty Start Date End Date Sharon Mijares MD PCP - General 07/30/10 [address] [place] [address] documented as of this encounter
--- OUTSIDE RECORDS SUMMARY | 2022-01-23 23:50 | XMS_ITS | Encounter Summary ---
:1985 Author Organization [email or web address] Address [address], [place] [address] Care Team Providers Name Role Phone Sharon Mijares MD Primary Care Provider [phone] Encounter Details Date Type Department Care Team Description 12/27/2014 Imaging [place] Ultrasound History of miscarriage [address] [address] [place] [phone] Social History Tobacco Use Types Packs/Day Years Used Date Smoking Tobacco: Never Assessed Sex Assigned at Date Recorded Not on file documented as of this encounter Progress Notes Maribell Loving APRN, CNP - 12/27/2014 11:05 AM CDT Quick Note: Notified at visit documented in this encounter Miscellaneous Notes Miscellaneous - 06/05/2016 4:09 AM CSTNotes Recorded by Maribell Loving APRN, CNP on 12/27/2014 at 11:[address] CARE STAFFER documented in this encounter Plan of Treatment Not on filedocumented as of this encounter Procedures Procedure Name Priority Date/Time Associated Diagnosis Comme nts US OB <14 WEEKS W Routine 12/27/2014 10:18 AM History of Res ults for this EV SINGLE CDT miscarriage procedure are i n the results section. documented in this encounter Results US OB <14 Weeks W EV Single (12/27/2014 10:18 AM CDT) Anatomical Region Laterality Modality Pelvis Other Specimen (Source) Anatomical Location Collection Method / Collectio n Time Received Time / Laterality Volume Impressions 12/27/2014 10:26 AM CDT IMPRESSION: Single living IUP 6 weeks 1 day gestation. Narrative 12/27/2014 10:26 AM CDT COMPARISON: None TECHNIQUE: ??Transabdominal and transvag inal imaging was performed. ?? FINDINGS: ? Gestational sac: Unremarkable. Myrtle-rump length measures 0.4 cm, corre sponding to 6w1d gestational age. ?? JAMIE . ?? Embryonic/ cardiac activity is iden tified with heart rate 122 bpm. ?? Right Ovary: Measures 2.1 x 1.2 x 1.9 cm and Appears unremarkable. Left Ovary: Measures 3.5 x 2.0 x 3.1 cm and Probable corpus luteum. No suspicious adnexal masses. Free Fluid: No significant free fluid. Procedure Note Tyrese Gregory MD - 10/14/2015Formatti ng of this note might be different from the original. COMPARISON: None TECHNIQUE: Transabdominal and transvagin al imaging was performed. FINDINGS: Gestational sac: Unremarkable. Myrtle-rump length measures 0.4 cm, corre sponding to 6w1d gestational age. JAMIE . Embryonic/ cardiac activity is iden tified with heart rate 122 bpm. Right Ovary: Measures 2.1 x 1.2 x 1.9 cm and Appears unremarkable. Left Ovary: Measures 3.5 x 2.0 x 3.1 cm and Probable corpus luteum. No suspicious adnexal masses. Free Fluid: No significant free fluid. IMPRESSION IMPRESSION: Single living IUP 6 weeks 1 day gestation. Transcriptions Tyrese Gregory MD - 06/05/2016 4:09 AM CSTNotes Recorded by Maribell Loving APRN, CNP on 12/27/2014 at 11:05 AMNotified at visit Maribell Loving APRN, CNP [facility] documented in this encounter Visit Diagnoses Diagnosis History of miscarriage Personal history of other genital system and obstetric disorders documented in this encounter Care Teams Web Designer Relationship Specialty Start Date End Date Sharon Mijares MD PCP - General 07/30/10 [address] [place], [place] [id number] documented as of this encounter
--- OUTSIDE RECORDS SUMMARY | 2022-01-23 23:50 | XMS_ITS | Encounter Summary ---
:1985 Author Organization [facility] Address [address] [address] Care Team Providers Name Role Phone Sharon Mijares MD Primary Care Provider [phone] Reason for Visit Reason Comments Questions Encounter Details Date Type Department Care Team Description 12/27/2014 Nurse Triage [facility] Sharon Mijares, Questions [address] [place] [address] [facility] [phone] [place], [place] [address] (Wo rk) Social History Tobacco Use Types Packs/Day Years Used Date Smoking Tobacco: Never Assessed Sex Assigned at Date Recorded Not on file documented as of this encounter Nursing Notes Megan Eid - 12/27/2014 8:39 PM CDT Protocol: [id number] Affirmative: [1] < 20 Weeks AND [2] nausea/vomiting began in early (i.e., 4-8 weeks ) Protocol: - MORNING SICKNESS (NAUSEA AND VOMITING OF )-ADULT-AH Affirmative: Nausea or vomiting (all triage questions negative) Disposition of Home Care suggested. Patient calling, is 6 weeks and was seen today in clinic today by OBGYN. Patient says she she thinks it may be the stomach -flu since she is having some diarrhea also. She is wondering if her treatment would be different if it was the stomach flu or morning sickness. She is not worse thanwhen she was seen today. Advised the treatment would be pretty similar, making sure she was drinkingfluids and watching for s/sx of dehydration, eating crackers and bland starchy foods. The stomach flu is caused by a virus, and would expect improvement over the next few days. She verbalizes understanding. She also says she doesn't know how comfortable she is with taking zofran. She was doing some r esearch and found it could be linked to some heart defects, she is wondering if there is something else that could be prescribed. Advised she would have to call the clinic tomorrow to speak with her provider about that. Patient agrees. Advised to call back directly if there are further questions, or if these symptoms fail to improve as anticipated or worsen. documented in this encounter Plan of Treatment Not on filedocumented as of this encounter Visit Diagnoses Not on filedocumented in this encounter Care Teams Coffee Grinder Relationship Specialty Start Date End Date Sharon Mijares MD PCP - General 07/30/10 [address] [place] [address] documented as of this encounter
--- OUTSIDE RECORDS SUMMARY | 2022-01-23 23:50 | XMS_ITS | Encounter Summary ---
:1985 Author Organization [facility] Address [address], [place] [address] Care Team Providers Name Role Phone Sharon Mijares MD Primary Care Provider [phone] Encounter Details Date Type Department Care Team Description 02/14/2009 PN Conversion Only [facility] [address] [place], [place] [address] Social History Tobacco Use Types Packs/Day Years Used Date Smoking Tobacco: Never Assessed Sex Assigned at Date Recorded Not on file documented as of this encounter Plan of Treatment Not on filedocumented as of this encounter Procedures Procedure Name Priority Date/Time Associated Diagnosis Comme nts CT PELVIS WO IV Routine 02/14/2009 8:47 AM Result s for this CONT CDT procedure are i n the results section. CT ABD WO IV CONT Routine 02/14/2009 8:47 AM Resu lts for this CDT procedure are i n the results section. documented in this encounter Results CT Pelvis WO IV Cont (02/14/2009 8:47 AM CDT) Anatomical Region Laterality Modality Pelvis, Abdomen Other Specimen (Source) Anatomical Location Collection Method / Collectio n Time Received Time / Laterality Volume Impressions 02/14/2009 8:47 AM CDT : 1. Unremarkable noncontrast CT of the ab domen and pelvis. ?Question minimal sludge in the gallbladder. Dictating YON LEE DO Narrative 02/14/2009 8:47 AM CDT TECHNIQUE: ??Images were obtained through the abdomen and pelvis without intravenous contrast. COMPARISON: ??None. FINDINGS: ??Lung bases clear. ??Liver, s pleen, pancreas, gallbladder, adrenals and kidneys demonstrate unremar kable noncontrast appearance. There is a gallbladder phrygian cap with question minimal sludge in the gallbladder fundus. Bowel unremarkab le. ??What is felt to be a normal appearing appendix is identified on images 88-60 extending superiorly along the right psoas muscle. ??No adenopathy. ??No hernias. Bones unremarkable Procedure Note Yon Ellis, DO - 10/12/2015For matting of this note might be different from the original. TECHNIQUE: Images were obtained through the abdomen and pelvis without intravenous contrast. COMPARISON: None. FINDINGS: Lung bases clear. Liver, splee n, pancreas, gallbladder, adrenals and kidneys demonstrate unremar kable noncontrast appearance. There is a gallbladder phrygian cap with question minimal sludge in the gallbladder fundus. Bowel unremarkab le. What is felt to be a normal appearing appendix is identified on images 88-60 extending superiorly along the right psoas muscle. No adenopathy. No hernias. Bones unremarkable IMPRESSION : 1. Unremarkable noncontrast CT of the ab domen and pelvis. Question minimal sludge in the gallbladder. Dictating YON LEE DO Amy Castillo TAXICAB DRIVER, DEDICATED LOCAL TRUCK DRIVER RAD CT CT Abd WO IV Cont (02/14/2009 8:47 AM CDT) Anatomical Region Laterality Modality Abdomen, Pelvis Other Specimen (Source) Anatomical Location Collection Method / Collectio n Time Received Time / Laterality Volume Impressions 02/14/2009 8:47 AM CDT : 1. Unremarkable noncontrast CT of the ab domen and pelvis. ?Question minimal sludge in the gallbladder. Dictating YON LEE DO Narrative 02/14/2009 8:47 AM CDT TECHNIQUE: ??Images were obtained through the abdomen and pelvis without intravenous contrast. COMPARISON: ??None. FINDINGS: ??Lung bases clear. ??Liver, s pleen, pancreas, gallbladder, adrenals and kidneys demonstrate unremar kable noncontrast appearance. There is a gallbladder phrygian cap with question minimal sludge in the gallbladder fundus. Bowel unremarkab le. ??What is felt to be a normal appearing appendix is identified on images 88-60 extending superiorly along the right psoas muscle. ??No adenopathy. ??No hernias. Bones unremarkable Procedure Note Yon Ellis, - 10/12/2015For matting of this note might be different from the original. TECHNIQUE: Images were obtained through the abdomen and pelvis without intravenous contrast. COMPARISON: None. FINDINGS: Lung bases clear. Liver, splee n, pancreas, gallbladder, adrenals and kidneys demonstrate unremar kable noncontrast appearance. There is a gallbladder phrygian cap with question minimal sludge in the gallbladder fundus. Bowel unremarkab le. What is felt to be a normal appearing appendix is identified on images 88-60 extending superiorly along the right psoas muscle. No adenopathy. No hernias. Bones unremarkable IMPRESSION : 1. Unremarkable noncontrast CT of the ab domen and pelvis. Question minimal sludge in the gallbladder. Dictating YON LEE DO Amy Castillo TAXICAB DRIVER, DEDICATED LOCAL TRUCK DRIVER RAD CT documented in this encounter Visit Diagnoses Not on filedocumented in this encounter Care Teams Outdoor Studies Director Relationship Specialty Start Date End Date Sharon Mijares MD PCP - General 07/30/10 [address] [place] [address] documented as of this encounter
--- OUTSIDE RECORDS SUMMARY | 2022-01-23 23:50 | XMS_ITS | Encounter Summary ---
:1985 Author Organization [facility] Address [address] [address] Care Team Providers Name Role Phone Sharon Mijares MD Primary Care Provider [phone] Reason for Visit Reason Comments Questions Encounter Details Date Type Department Care Team Description 12/14/2014 Nurse Triage AndersonMaribell Sheppard, Toro SOARES ons Obstetrics/Gynecolog y VENEER GLUE JOINTER FEEDBACK [address] [place] [address], [place] [address] [address] [place], [place] [address] [place], [place] [phone] Social History Tobacco Use Types Packs/Day Years Used Date Smoking Tobacco: Never Assessed Sex Assigned at Date Recorded Not on file documented as of this encounter Nursing Notes Jany Giraldo, LYLE - 12/14/2014 11:07 AM CDT Informed pt of Inder's message below, Patient verbalizes understanding of instructions/plan. Warm transferred to radiology scheduling. Jany Giraldo RN - 12/14/2014 10:56 AM CDT LMTCB Maribell Loving APRN, GABBY - 12/14/2014 10:26 AM CDT Exciting! She may do a dating US with clinician appt immediately after when she is 6.5 to 7 weeks. This is not the NOB 1. Order placed. Jany Giraldo, LYLE - 12/14/2014 9:10 AM CDT Reason for Call: Clinician input needed on symptom based concern. Next Steps: Route to Triage Nurse pool for patient follow up. Additional Information: Pt. had a m/c 08/2014 and is calling to report that she is currently again. LMP 11/11/14. Is wondering if she should be seen earlier than 8wks or do labs/US. States she is feeling well, no discomforts at this time. Please advise. documented in this encounter Plan of Treatment Not on filedocumented as of this encounter Visit Diagnoses Diagnosis History of miscarriage - Primary Personal history of other genital system and obstetric disorders documented in this encounter Care Teams Experimental Machining Lab Manager Relationship Specialty Start Date End Date Sharon Mijares MD PCP - General 07/30/10 [address] [place] [address] documented as of this encounter
--- OUTSIDE RECORDS SUMMARY | 2022-01-23 23:50 | XMS_ITS | Encounter Summary ---
:1985 Author Organization [facility] Address [address] [place] [address] Care Team Providers Name Role Phone Sharon Mijares MD Primary Care Provider [phone] Reason for Visit Reason Comments ULTRASOUND Encounter Details Date Type Department Care Team Description 12/27/2014 Office Visit Maribell Harris, Nausea/vomit ing in (Primary Dx); Obstetrics/Gynecolog y GROUND SCHOOL INSTRUCTOR, SCHOOL DIRECTOR Viable , first trimester [address] [facility] [address] [facility] [address] [place] [address] Social History Tobacco Use Types Packs/Day Years Used Date Smoking Tobacco: Never Assessed Sex Assigned at Date Recorded Not on file documented as of this encounter Last Filed Vital Signs Vital Sign Reading Time Taken Comments Blood Pressure 119/72 12/27/2014 10:19 AM CDT Pulse 77 12/27/2014 10:19 AM CDT Temperature - - Respiratory Rate - - Oxygen Saturation - - Inhaled Oxygen Concentration - - Weight 70.4 kg (155 lb 2.2 oz) 12/27/2014 10:19 AM CDT Height 157.5 cm (5' 2) 12/27/2014 10:19 AM CDT Body Mass Index 28.38 12/27/2014 10:19 AM CDT documented in this encounter Progress Notes Maribell Loving, GROUND SCHOOL INSTRUCTOR, SCHOOL DIRECTOR - 12/27/2014 11:00 AM CDT Clinic Visit CC: US f/u Subjective: 29 YO Female here following a dating OB ultrasound. Today's scan shows single viable IUP at 6w1d with a heart rate of 122. Her LMP was 11/11/14 which is not c/w her US dates per dating algorithm. Her new EDC is 08/21/15. She has not had any bleeding since LMP. She is feeling very nauseated over the past couple of days. She cannot keep any food down. Interested in trying antiemetic or at least having one on hand. Comfortable with Zofran. Past Medical History: Past Medical History Diagnosis Date ??? Pap smear abnormality of cervix Surgical History: Past Surgical History Procedure Laterality Date ??? [place] tooth extraction Adverse Drug Reactions: Monistat 1 (tioconazole) Medications: Current Outpatient Prescriptions Medication Sig Dispense Refill ??? patient not taking any chronic medication ? ? VIT W-CA,FE,FA,<1 MG, ( #2 ORAL) Take by mouth. No current facility-administered medications for this visit. Social History: History Social History ??? Marital Status: Single Spouse Name: N/A Number of Children: N/A ??? Years of Education: N/A Social History Main Topics ??? Smoking status: Never Smoker ??? Smokeless tobacco: None ??? Alcohol Use: No Comment: Alcoholic Drinks/day: Amount:1-2 drinks; Freq:2-4/Month ; ??? Drug Use: No ??? Sexual Activity: Partners: Male Other Topics Concern ??? None Social History Narrative Review of Systems: Pertinent items are noted in HPI. OBJECTIVE: Vital Signs: LMP Vitals Item Reading ??? BP 119/72 ??? Pulse 77 ??? Ht 5' 2 (1.575 m) ??? Wt 155 lb 2.2 oz (70.37 kg) ??? LMP 11/11/2014 General: Patient is well-appearing and in no acute distress, She moves easily about the room and hasan appropriate affect. No exam performed today, no exam indicated. ASSESSMENT: Follow up US: Single IUP, viable N/V in preg PLAN: US results reviewed. Very reassuring results, c/w viable . We will use 08/21/15 as EDC because it is 4 days different from LMP date. Also, pt's cycles are 33days so it makes more sense to use the later EDC. Will set up NOB 1 in 2-4 weeks. Rx in for Zofran. Instructions given. Total time: 15 min. Counseling time: 15min. Counseled on US results, plan of care, N/V med options. Maribell Loving APRN, CNP 12/27/2014 documented in this encounter Plan of Treatment Not on filedocumented as of this encounter Visit Diagnoses Diagnosis Nausea/vomiting in - Primary Unspecified vomiting of , unspe cified as to episode of care Viable , first trimester documented in this encounter Care Teams Entry Level Paralegal Relationship Specialty Start Date End Date Sharon Mijares MD PCP - General 07/30/10 [address] [place] [address] documented as of this encounter
--- OUTSIDE RECORDS SUMMARY | 2022-01-23 23:50 | XMS_ITS | Encounter Summary ---
:1985 Author Organization [employer] Address [address], [place] [address] Care Team Providers Name Role Phone Sharon Mijares MD Primary Care Provider [phone] Encounter Details Date Type Department Care Team Description 01/11/2015 Lab Visit [facility] Screeni ng for diabetes mellitus; Laboratory PN Women' s Srv screening for isoi mmunization; [address], [address] creening for unspecified disorder of blood and blood-forming organs; [address] Special screening examinatio n for other specified viral diseases; [place], [place] [phone] Screening examination for ve nereal disease [phone] Social History Tobacco Use Types Packs/Day Years Used Date Smoking Tobacco: Never Assessed Sex Assigned at Date Recorded Not on file documented as of this encounter Plan of Treatment Not on filedocumented as of this encounter Procedures Procedure Name Priority Date/Time Associated Diagnosis Comme nts ANTIBODY SCREEN Routine 01/11/2015 9:34 screening fo r Results for this AM CDT isoimmunization procedure ar e in the results section. HIV ANTIBODY Routine 01/11/2015 9:34 Special screening Results for this AM CDT examination for other proced ure are in specified viral the results diseases section. Screening examination for venereal disease TREPONEMA SCREEN Routine 01/11/2015 9:34 Screening examination Results for this AM CDT for venereal disease procedu re are in the results section. HEP B SURFACE Routine 01/11/2015 9:34 Special screening Result s for this ANTIGEN, NO REFLEX AM CDT examination for other procedure are in specified viral the results diseases section. Screening examination for venereal disease COMPLETE BLOOD Routine 01/11/2015 9:34 Screening for Results f or this COUNT-W/DIFF AM CDT unspecified disorder of proc edure are in blood and blood-forming the results organs section. DIFFERENTIAL Routine 01/11/2015 9:34 Results for this AM CDT procedure are i n the results section. HGB A1C Routine 01/11/2015 9:34 Screening for diabetes Re sults for this AM CDT mellitus procedure are i n the results section. documented in this encounter Results Differential (01/11/2015 9:34 AM CDT) athologist Signature Absolute 6.3 1.8 - 8.0 HP CONVERSION Neutrophils k/cmm Absolute 1.8 1.1 - 4.0 HP CONVERSION Lymphocytes k/cmm Absolute 0.8 0.2 - 0.8 HP CONVERSION Monocytes k/cmm Absolute 0.1 0.0 - 0.5 HP CONVERSION Eosinophils k/cmm Absolute 0.0 0.0 - 0.2 HP CONVERSION Basophils k/cmm Specimen Anatomical Collection Method Collection Time Receive d Time (Source) Location / / Volume Laterality 01/11/2015 9:34 AM 5 CDT 11:52 AM CDT Narrative HP CONVERSION - 01/11/2015 11:59 AM CDT Performed at [facility], [address] [address] [place] [address] Ketan Rees APRN, QUIQUE LAB_1 Performing Organization Address City/State/ZIP Code Phon e Number HP CONVERSION Treponema Screen (01/11/2015 9:34 AM CDT) [facility] gist Method Time Signature Treponema Non Reactive Non Reactive HP CONVERSION Screen Specimen Anatomical Collection Method Collection Time Receive d Time (Source) Location / / Volume Laterality 01/11/2015 9:34 AM 5 CDT 12:50 PM CDT Narrative HP CONVERSION - 01/11/2015 2:41 PM CDT Performed at [facility], [address] [place] [address] Ketan Rees APRN, CNM LAB_1 Performing Organization Address City/[facility] Phon e Number HP CONVERSION HIV ANTIBODY (01/11/2015 9:34 AM CDT) athologist Signature HIV 1/HIV 2 Non-React Non-Reacti HP CONVERSION ve Specimen Anatomical Collection Method Collection Time Receive d Time (Source) Location / / Volume Laterality 01/11/2015 9:34 AM 5 CDT 12:50 PM CDT Narrative HP CONVERSION - 01/11/2015 3:22 PM CDT Performed at [facility], [address] [place] [address] Ketan Rees APRN, CNM LAB_1 Performing Organization Address City/[facility] Phon e Number HP CONVERSION Hep B Surface Antigen, No Reflex (01/11/2015 9:34 AM CDT) Analysis Performed At [facility] Hep B Surf Ag Negative Negative HP CONVERSION Specimen Anatomical Collection Method Collection Time Receive d Time (Source) Location / / Volume Laterality 01/11/2015 9:34 AM 5 CDT 12:50 PM CDT Narrative HP CONVERSION - 01/11/2015 3:09 PM CDT Performed at [facility], [address] [place] [address] Ketan Rees APRN, CNM LAB_1 Performing Organization Address City/[facility] Phon e Number HP CONVERSION Complete Blood Count W/Diff (01/11/2015 9:34 AM CDT) athologist Signature White Blood Cell 9.1 3.8 - 11.0 HP CONVERSIO N Count k/cmm Red Blood Cell 4.46 3.70 - HP CONVERSION Count 5.20 m/cmm Hemoglobin 13.3 11.8 - HP CONVERSION 15.5 g/dL Hematocrit 38.6 35.0 - HP CONVERSION 46.0 % Mean Corpuscular 86.5 80.0 - HP CONVERSION Volume 100.0 fL RDW 12.8 11.0 - HP CONVERSION 15.0 % Platelet Count 423 140 - 450 HP CONVERSION k/cmm Specimen Anatomical Collection Method Collection Time Receive d Time (Source) Location / / Volume Laterality 01/11/2015 9:34 AM 5 CDT 11:52 AM CDT Narrative HP CONVERSION - 01/11/2015 11:59 AM CDT Performed at [facility], [address] [place] [address] Ketan Rees APRN, CNM LAB_1 Performing Organization Address [facility] Phon e Number HP CONVERSION ANTIBODY SCREEN (01/11/2015 9:34 AM CDT) athologist Signature Antibody Screen NEG HP CONVERSION Specimen Anatomical Collection Method Collection Time Receive d Time (Source) Location / / Volume Laterality 01/11/2015 9:34 AM 5 CDT 12:44 PM CDT Narrative HP CONVERSION - 01/11/2015 3:32 PM CDT Performed at [facility], [address] [place] [address] Ketan Rees APRN, CNM PN BLOOD BANK ORDERS Performing Organization Address [facility] Phon e Number HP CONVERSION Hgb A1c (01/11/2015 9:34 AM CDT) athologist Signature HGB A1C 5.0 4.0 - 5.6 % HP CONVERSION Specimen Anatomical Collection Method Collection Time Receive d Time (Source) Location / / Volume Laterality 01/11/2015 9:34 AM 5 CDT 12:50 PM CDT Narrative HP CONVERSION - 01/11/2015 2:51 PM CDT Performed at [facility], [address] [place] [address] Ketan Rees APRN, CNM LAB_1 Performing Organization Address [facility] Phon e Number HP CONVERSION documented in this encounter Visit Diagnoses Diagnosis Screening for diabetes mellitus screening for isoimmunization Screening for unspecified disorder of bl ood and blood-forming organs Special screening examination for other specified viral diseases Screening examination for venereal disea se documented in this encounter Care Teams Frame Gate Mortiser Operator Relationship Specialty Start Date End Date Sharon Mijares MD PCP - General 07/30/10 [address] [place] [address] documented as of this encounter
--- OUTSIDE RECORDS SUMMARY | 2022-01-23 23:50 | XMS_ITS | Encounter Summary ---
:1987 Author Organization [facility] Address [address] [address] Care Team Providers Name Role Phone Sharon Mijares MD Primary Care Provider [phone] Reason for Visit Reason Comments Vaginal Discharge Encounter Details Date Type Department Care Team Description 09/25/2013 Nurse Triage Clayton Younger Sharon Mijares Vagina l Discharge Medicine [place] [address] [facility] [address] [place] [address] [place] [address] [phone] (Wo rk) Social History Tobacco Use Types Packs/Day Years Used Date Smoking Tobacco: Never Assessed Sex Assigned at Date Recorded Not on file documented as of this encounter Nursing Notes Morena Bear RN - 09/25/2013 7:54 AM CDT Protocol: VAGINAL [id number] Affirmative: Genital area looks infected (e.g., draining sore, spreading redness) Disposition of See Physician Within 24 Hours suggested. Patient calling who thought she was having a vaginal yeast infection so took a Diflucan yesterday and used some OTC cream even though she has reacted to the cream before. Said now around her vaginal area is red and sore and painful. Denies fever or abdominal pain. Had some clear vaginal drainage but nothing else. Pain comes and goes and when at the worst is a 7-8 on scale of 1-10. Offered to make appointment for tomorrow or she can go to Urgent Care. She will think about it and call back if she needs an appointment as she may go to Urgent Care today. documented in this encounter Plan of Treatment Not on filedocumented as of this encounter Visit Diagnoses Not on filedocumented in this encounter Care Teams Postmaster Relief Relationship Specialty Start Date End Date Sharon Mijares MD PCP - General 07/30/10 [address] [place], [place] [id number] documented as of this encounter
--- OUTSIDE RECORDS SUMMARY | 2022-01-23 23:50 | XMS_ITS | Encounter Summary ---
:1985 Author Organization [employer] Address [address], [place] [address] Care Team Providers Name Role Phone Sharon Mijares MD Primary Care Provider [phone] Reason for Visit Reason Comments Medication Questions Encounter Details Date Type Department Care Team Description 02/14/2015 Nurse Triage Mobileeliza Younger Sharon Mijares [facility] cation Questions [facility] [place] [address] [place] [address] [phone] (Wo rk) Social History Tobacco Use Types Packs/Day Years Used Date Smoking Tobacco: Never Assessed Sex Assigned at Date Recorded Not on file documented as of this encounter Nursing Notes Marisol Hull RN - 02/14/2015 6:32 PM CDT Pt is calling back see note from today. Pt will wait to hear back from OB. documented in this encounter Plan of Treatment Not on filedocumented as of this encounter Visit Diagnoses Not on filedocumented in this encounter Care Teams Community Outreach Director Relationship Specialty Start Date End Date Sharon Mijares MD PCP - General 07/30/10 [address] [place] [address] documented as of this encounter
--- OUTSIDE RECORDS SUMMARY | 2022-01-23 23:50 | XMS_ITS | Encounter Summary ---
:1985 Author Organization [facility] Address [address], [place] [address] Care Team Providers Name Role Phone Sharon Mijares MD Primary Care Provider [phone] Encounter Details Date Type Department Care Team Description 08/29/2010 PN Conversion Only [facility] Charity Caballero, Medicine [address] [place] [address] [place] [address] [phone] (Wo rk) Social History Tobacco Use Types Packs/Day Years Used Date Smoking Tobacco: Never Assessed Sex Assigned at Date Recorded Not on file documented as of this encounter Plan of Treatment Not on filedocumented as of this encounter Visit Diagnoses Not on filedocumented in this encounter Care Teams Camera Prototyping Engineer Relationship Specialty Start Date End Date Sharon Mijares MD PCP - General 07/30/10 [address] [place] [address] documented as of this encounter
--- OUTSIDE RECORDS SUMMARY | 2022-01-23 23:50 | XMS_ITS | Encounter Summary ---
:1985 Author Organization [facility] Address [address], [place] [address] Care Team Providers Name Role Phone Sharon Mijares MD Primary Care Provider Reason for Visit Reason Comments ERRONEOUS ENTRY Encounter Details Date Type Department Care Team Description 09/04/2014 Telephone [facility] Pcp, Assignment ERRONEOUS ENTRY [address] [address] [place] [address] [phone] Social History Tobacco Use Types Packs/Day Years Used Date Smoking Tobacco: Never Assessed Sex Assigned at Date Recorded Not on file documented as of this encounter Nursing Notes Allison Valentine - 09/04/2014 3:42 PM CDT error documented in this encounter Plan of Treatment Not on filedocumented as of this encounter Visit Diagnoses Not on filedocumented in this encounter Care Teams Technician Anatomic Pathology Relationship Specialty Start Date End Date Sharon Mijares MD PCP - General 07/30/10 [address] [place], [place] [address] documented as of this encounter
--- OUTSIDE RECORDS SUMMARY | 2022-01-23 23:50 | XMS_ITS | Encounter Summary ---
:1985 Author Organization [facility] Address [address], [place] [address] Care Team Providers Name Role Phone Sharon Mijares MD Primary Care Provider [phone] Reason for Visit Reason Comments Symptoms Encounter Details Date Type Department Care Team Description 12/04/2013 Nurse Triage [facility] Sharon Mijares, Symptoms [address] [address] [place] [address] [address] [phone] [place], [place] [address] (Wo rk) Social History Tobacco Use Types Packs/Day Years Used Date Smoking Tobacco: Never Assessed Sex Assigned at Date Recorded Not on file documented as of this encounter Nursing Notes Savannah Bear RN - 12/04/2013 2:35 AM CDT Pt. calling. Currently being treated with Bactrim for a UTI by a non-PN UC. Noted that the vulva is red,irritated and slightly swollen with some white vaginal discharge. Afebrile. UTI symptoms have improved. Pt. is calling for home care advised. Reviewed home management per protocol. CALL BACK IF: * Discharge becomes yellow or green * Discharge becomes foul smelling or itchy * Fever or abdominal pain occur * You become worse. Verbalized understanding and agreed with plan. Protocol: VULVAR [id number] Affirmative: [1] Symptoms of a yeast infection (i.e., itchy, white discharge, not bad smelling) AND [2] feels like prior vaginal yeast infections Disposition of Home Care suggested. documented in this encounter Plan of Treatment Not on filedocumented as of this encounter Visit Diagnoses Not on filedocumented in this encounter Care Teams Qa Auditor Relationship Specialty Start Date End Date Sharon Mijares MD PCP - General 07/30/10 [address] [place] [address] documented as of this encounter
--- OUTSIDE RECORDS SUMMARY | 2022-01-23 23:50 | XMS_ITS | Encounter Summary ---
:1985 Author Organization [facility] Address [address], [place] [address] Care Team Providers Name Role Phone Sharon Mijares MD Primary Care Provider [phone] Encounter Details Date Type Department Care Team Description 09/04/2014 Notes/Orders [place] Maribell Loving, Geno m jeannine Obstetrics/Gynecolog y SEWER AND DRAIN TECHNICIAN, RN CARDIOLOGY (Primary Dx) [address] [place] [address] [address] [place] [address] [phone] Social History Tobacco Use Types Packs/Day Years Used Date Smoking Tobacco: Never Assessed Sex Assigned at Date Recorded Not on file documented as of this encounter Plan of Treatment Not on filedocumented as of this encounter Visit Diagnoses Diagnosis Threatened miscarriage - Primary Threatened , unspecified as to e pisode of care documented in this encounter Care Teams Unix Manager Relationship Specialty Start Date End Date Sharon Mijares MD PCP - General 07/30/10 [address] [place] [address] documented as of this encounter
--- OUTSIDE RECORDS SUMMARY | 2022-01-23 23:50 | XMS_ITS | Encounter Summary ---
:1985 Author Organization [facility] Address [address], [place] [address] Care Team Providers Name Role Phone Sharon Mijares MD Primary Care Provider [phone] Reason for Visit Reason Comments Refill Encounter Details Date Type Department Care Team Description 02/08/2015 Refill [place] [facility] Maribell Loving, INSIGHT LEADER, LINE ORDERING CLINICIAN Refill [address] [facility] [address] [facility] [address] [place] [address] [place] [address] [phone] (Wo rk) Social History Tobacco Use Types Packs/Day Years Used Date Smoking Tobacco: Never Assessed Sex Assigned at Date Recorded Not on file documented as of this encounter Nursing Notes Ally Murphy, RN - 02/08/2015 8:58 AM CDT Patient called and states that she has been using Unisom and Vit B6 for nausea and vomiting in . Spoke with Maribell Loving ans she agreed with trying Zofran. Late entry due to network outage and Rx was called into [facility] per verbal order from Maribell Loving. Maritza Murphy RN documented in this encounter Plan of Treatment Not on filedocumented as of this encounter Visit Diagnoses Not on filedocumented in this encounter Care Teams Product Specialist Relationship Specialty Start Date End Date Sharon Mijares MD PCP - General 07/30/10 [address] [place] [address] documented as of this encounter
--- OUTSIDE RECORDS SUMMARY | 2022-01-23 23:50 | XMS_ITS | Encounter Summary ---
:1985 Author Organization [facility] Address [address], [place] [address] Care Team Providers Name Role Phone Sharon Mijares MD Primary Care Provider [phone] Reason for Visit Reason Comments Other Encounter Details Date Type Department Care Team Description 02/14/2009 Telephone [facility] John Willson LPN Other [address] [place], [place] [address] Social History Tobacco Use Types Packs/Day Years Used Date Smoking Tobacco: Never Assessed Sex Assigned at Date Recorded Not on file documented as of this encounter Progress Notes Mariah Graff APRN, PIPE PRODUCTION WORKER - 02/14/2009 5:53 PM CDT Phone Note filed by MEGAN Nelson at 08/16/101435 Author: MEGAN Nelson Service: (none) Author Type: Nurse Practitioner Filed: 08/16/101435 Note Time: 02/14/091752 Status: Signed Protective Services Case Worker: MEGAN Nelson (Nurse Practitioner) left message to return call about CT scan results. transfer ext [phone] Created on 14Feb2009 5:53pm by MARIAH GRAFF On 15Feb2009 9:33am MARIAH GRAFF wrote: Reviewed results. she is still having pain and stopped vicodin. No BM yet from Miralax, she will continue. schedule RUQ ultrasound for abdominal pain and gallbladder sludge. evaluate gallstones. code 789.00 On 15Feb2009 9:49am JOHN TAN wrote: Patient contacted and updated on above appointment at [facility] Thu. at 820am. Prep given with number to clinic. Acknowledged by JOHN TAN on 9:49am SHOP SUPERVISOR documented in this encounter Plan of Treatment Not on filedocumented as of this encounter Visit Diagnoses Not on filedocumented in this encounter Care Teams Estate Planning Director Relationship Specialty Start Date End Date Sharon Mijares MD PCP - General 07/30/10 [address] [place] [address] documented as of this encounter
--- OUTSIDE RECORDS SUMMARY | 2022-01-23 23:50 | XMS_ITS | Encounter Summary ---
:1985 Author Organization [facility] Address [address] [address] Care Team Providers Name Role Phone Sharon Mijares MD Primary Care Provider [phone] Encounter Details Date Type Department Care Team Description 09/04/2014 Lab Visit [facility] Threatened in [address] [place] [address] [address] [place] [address] [facility] [phone] Social History Tobacco Use Types Packs/Day Years Used Date Smoking Tobacco: Never Assessed Sex Assigned at Date Recorded Not on file documented as of this encounter Plan of Treatment Not on filedocumented as of this encounter Procedures Procedure Name Priority Date/Time Associated Diagnosis Comme nts HCG, QUANTITATIVE, Routine 09/04/2014 10:52 AM Threatened abor tion Results for this SERUM CDT in early proced ure are in the results section. documented in this encounter Results (ABNORMAL) HCG, Quantitative, Serum (09/04/2014 10:52 AM CDT) P athologist Signature HCG For 186 (H) 0 - 6 HP CONVERSION mIU/L [...] Time (Source) Location / / Volume Laterality 09/04/2014 10:52 09/04/2014 2:50 AM CDT PM CDT Narrative HP CONVERSION - 09/04/2014 3:45 PM CDT Performed at [facility], [address] [place] [address] Maribell Loving APRN, TRAVEL MONEY ADVISOR LAB_1 Performing Organization Address City/State/[facility] Phon e Number HP CONVERSION documented in this encounter Visit Diagnoses Diagnosis Threatened in early Threatened , unspecified as to e pisode of care documented in this encounter Care Teams Landscaping Manager Relationship Specialty Start Date End Date Sharon Mijares MD PCP - General 07/30/10 [address] [place] [address] documented as of this encounter
--- OUTSIDE RECORDS SUMMARY | 2022-01-23 23:50 | XMS_ITS | Encounter Summary ---
:1985 Author Organization [facility] Address [address] [address] Care Team Providers Name Role Phone Sharon Mijares MD Primary Care Provider [phone] Reason for Visit Reason Comments Constipation Encounter Details Date Type Department Care Team Description 12/28/2014 Nurse Triage [facility] Sharon Mijares, Constipation [address] Ziggy Barrera MD [place], [place] [address] [facility] [phone] [place], [place] [address] (Wo rk) Social History Tobacco Use Types Packs/Day Years Used Date Smoking Tobacco: Never Assessed Sex Assigned at Date Recorded Not on file documented as of this encounter Nursing Notes Lissa Stallings RN - 12/28/2014 6:50 PM CDT Protocol: - [id number] Affirmative: Mild constipation (all triage questions negative) Disposition of Home Care suggested. Patient calling in. She is 5 weeks . She was seen in the clinic on 12/27/2014. Patient states she has had diarrhea, and took Imodium. She c/o of being constipated. Encouraged patient to increase fluids and eat vegetables and fruits. Care advice given per protocol, and pt verbalizes understanding. Call completed. Medications with Triage Reference SYMPTOMS Constipation. Laxatives/Stool Softners: First Choice: Prune juice or fiber products (example Metamucil or Fiber-Con). Take a full 8 oz glass of water with fiber products. Second Choice: Colace, Senekot, Milk of Magnesia. Avoid daily or prolonged use of laxatives. Ok to use Milk of Magnesia as needed. OK to use Miralax (Miralax is not a laxative) daily. Advised to call back if any of the following occur: symptoms worsen, any other questions or concerns. Patient/Caller agrees with plan and denies additional questions. Problem List: Reviewed today in the EMR. Allergies: Reviewed/updated today in the EMR. Medications: Reviewed/updated today in the EMR. Status 5 -6 weeks. PLAN: US results reviewed. Very reassuring results, c/w viable . We will use 08/21/15 as EDC because it is 4 days different from LMP date. Also, pt's cycles are 33days so it makes more sense to use the later EDC. Will set up NOB 1 in 2-4 weeks. Rx in for Zofran. Instructions given. documented in this encounter Plan of Treatment Not on filedocumented as of this encounter Visit Diagnoses Not on filedocumented in this encounter Care Teams City Administrator Relationship Specialty Start Date End Date Sharon Mijares MD PCP - General 07/30/10 [address] [place] [address] documented as of this encounter
--- OUTSIDE RECORDS SUMMARY | 2022-01-23 23:50 | XMS_ITS | Encounter Summary ---
:1985 Author Organization [facility] Address [address], [place] [address] Care Team Providers Name Role Phone Sharon Mijares MD Primary Care Provider [phone] Encounter Details Date Type Department Care Team Description 09/04/2014 Lab Visit [facility] Vaginal bleeding in [address] [place] [address] [address] , [place] [address] Social History Tobacco Use Types Packs/Day Years Used Date Smoking Tobacco: Never Assessed Sex Assigned at Date Recorded Not on file documented as of this encounter Plan of Treatment Not on filedocumented as of this encounter Visit Diagnoses Diagnosis Vaginal bleeding in , first tri mester documented in this encounter Care Teams Metal Model Builder Relationship Specialty Start Date End Date Sharon Mijares MD PCP - General 07/30/10 [address] [place] [address] documented as of this encounter
--- OUTSIDE RECORDS SUMMARY | 2022-01-23 23:50 | XMS_ITS | Encounter Summary ---
:1985 Author Organization [facility] Address [address], [place] [address] Care Team Providers Name Role Phone Sharon Mijares MD Primary Care Provider [phone] Reason for Visit Reason Comments Other Encounter Details Date Type Department Care Team Description 02/15/2010 Telephone [facility] [address] Lona Muir LPN Other Neurology [address] [place] [address] Social History Tobacco Use Types Packs/Day Years Used Date Smoking Tobacco: Never Assessed Sex Assigned at Date Recorded Not on file documented as of this encounter Progress Notes Lona Muir LPN - 02/15/2010 3:30 PM CDT Phone Note filed by Lona Muir LPN at 08/17/102022 Author: Lona Muir LPN Service: (none) Author Type: (none) Filed: 08/17/102022 Note Time: 02/15/101529 Status: Signed Labor Delivery Specialist: Maycol Andrade (Physician) Purging appt. from the headache center file. Patient did not return required questionnaire. (Mailed 02/14/09) Created on 15Feb2010 3:30pm by LONA MUIR RED CAR GUARD AND DRIVER documented in this encounter Plan of Treatment Not on filedocumented as of this encounter Visit Diagnoses Not on filedocumented in this encounter Care Teams Dining Server Relationship Specialty Start Date End Date Sharon Mijares MD PCP - General 07/30/10 [address] [place] [address] documented as of this encounter
--- OUTSIDE RECORDS SUMMARY | 2022-01-23 23:51 | XMS_ITS | Encounter Summary ---
:1985 Author Organization [facility] Address [address], [place] [address] Care Team Providers Name Role Phone Sharon Mijares MD Primary Care Provider [phone] Encounter Details Date Type Department Care Team Description 02/13/2009 PN Conversion Only [facility] CONVERSION Amy Castillo, [address] PHILANTHROPY OFFICER, [place] [address] [phone] (Wo rk) Social History Tobacco Use Types Packs/Day Years Used Date Smoking Tobacco: Never Assessed Sex Assigned at Date Recorded Not on file documented as of this encounter Plan of Treatment Not on filedocumented as of this encounter Procedures Procedure Name Priority Date/Time Associated Comments Diagnosis URINALYSIS ROUTINE, Routine 02/13/2009 4:33 PM Re sults for this MICRO/CULTURE IF POS CDT procedu re are in the results section. URINALYSIS Routine 02/13/2009 4:33 PM Results f or this MICROSCOPIC CDT procedure are i n the results section. URINE CULTURE Routine 02/13/2009 4:33 PM Results for this CDT procedure are i n the results section. documented in this encounter Results Urine Culture (02/13/2009 4:33 PM CDT) Analysis Performed At [facility] Time Signature Urine Culture SEE TEXT HP CONVERSION Comment: Patient: NOA FRAGOSO Culture, Urine ?Collected: ??[id number] ??[id number] Source: Clean Ca ?Processed: ??[id number] ??[id number] ? 1P Final Report ------ ?[id number] ??[id number] 10-50,000 CFU/mL mixed gram positive org anisms No further workup Specimen (Source) Anatomical Collection Method Collection Time Re ceived Time Location / / Volume Laterality 02/13/2009 4:33 PM CDT Amy Castillo APRN, LOCK MASTER LAB_1 Performing Organization Address City/State/ZIP Code Phon e Number HP CONVERSION (ABNORMAL) URINALYSIS MICROSCOPIC (02/13/2009 4:33 PM CDT) P athologist Signature White Blood 0-2/HPF 0 - 3 HP CONVERSION Cells Urine Comment: Urine culture has been ordered per r eflex test protocol. Red Blood Cells Urine Negative 0 - 2 HP CONVE RSION Comment: Urine culture has been ordered per r eflex test protocol. Bacteria Urine Few (A) None HP CONVERSION Comment: Urine culture has been ordered per r eflex test protocol. Epithelial Cells Few Few /HPF HP CONVERSION Comment: Urine culture has been ordered per r eflex test protocol. Specimen (Source) Anatomical Collection Method Collection Time Re ceived Time Location / / Volume Laterality 02/13/2009 4:33 PM CDT Amy Kinney Anna SOARES, LOCK MASTER LAB_1 Performing Organization Address [facility] Phon e Number HP CONVERSION (ABNORMAL) URINALYSIS ROUTINE, MICRO/CULTURE IF POS (02/13/2009 4:33 PM CDT) [facility] Method Time Signature Turbidity Hazy (A) No normal HP CONVERSION range pH Urine 6.5 4.5 - 7.5 HP CONVERSION Protein Urine Negative Neg-Trac HP CONVERSION Glucose, Negative Neg-Trac HP CONVERSION Qualitative U Ketones Negative Negative HP CONVERSION U BILI Negative Negative HP CONVERSION Blood Urine Negative Negative HP CONVERSION Nitrite Urine Negative Negative HP CONVERSION Leukocyte Negative Negative HP CONVERSION Esterase Urine Urobilinogen Negative 0.2 - 1.0 HP CONVERSION Urine U Specific 1.010 1.005 - 25 HP CONVERSION [place] Specimen (Source) Anatomical Collection Method Collection Time Re ceived Time Location / / Volume Laterality 02/13/2009 4:33 PM CDT Amy Kinney Anna SOARES, LOCK MASTER LAB_1 Performing Organization Address City/[facility] Phon e Number HP CONVERSION documented in this encounter Visit Diagnoses Not on filedocumented in this encounter Care Teams Waterworks Employee Relationship Specialty Start Date End Date Sharon Mijares MD PCP - General 07/30/10 [address] [place] [address] documented as of this encounter
--- OUTSIDE RECORDS SUMMARY | 2022-01-23 23:51 | XMS_ITS | Clinical Summary ---
:1985 Author Organization [facility] Address [address] [place] [address] Care Team Providers Name Role Phone Clinic, [facility] Primary Care Provider [phone] Allergies Active Allergy Reactions Severity Noted Date Comments Clindamycin Muscle Pain (Myalgia) Low 12/06/2016 Prochlorperazine Anxiety Low 02/23/2021 Glycolic Acid Other (See Comments) Low 03/17/2017 Reacti on to vicryl suture with suture gra nuloma formation. Lactic Acid Rash Low 12/05/2016 Miconazole Rash Low 09/28/2013 Suture 04/09/2019 disolvable Medications Medication Sig Dispensed Refills Start Date End Date Status Vit-Fe Take 1 tablet by 0 Active Fumarate-FA ( mouth daily MULTIVITAMIN W/IRON) 27-0.8 MG tablet acetaminophen (TYLENOL) Take 2 tablets 0 04/11/2019 Active 325 MG (650 mg) by mouth tabletIndications: every 4 hours as Kidney stone needed for mild pain or fever oxyCODONE (ROXICODONE) Take 1-2 tablets 20 tablet 0 04/11/2019 Active 5 MG tabletIndications: (5-10 mg) by Kidney stone mouth every 6 hours as needed for moderate to severe pain senna-docusate Use while taking 20 tablet 0 04/11/2019 Active (SENOKOT-S/PERICOLACE) narcotic 8.6-50 MG tabletIndications: Kidney stone Active Problems Problem Noted Date Kidney stone 04/11/2019 Dysuria 12/05/2013 Overweight (BMI 25.0-29.9) 09/28/2013 Resolved Problems Problem Noted Date Resolved Date Pyelonephritis affecting in third trimester 201804/11/2019 Immunizations Name Administration Dates Next Due DTAP (<7y) 01/17/1999, 11/11/1989, 03/24/1988, 09/27 Hib (PRP-T) 05/06/1989 Influenza (IIV3) PF 01/27/2012 MMR 11/24/1988 Poliovirus, inactivated (IPV) 10/24/1998, 11/11/1989, 1987 Tdap (Adacel,Boostrix) 11/25/2010, 06/14/2010 Varicella 09/10/2010 Social History Tobacco Use Types Packs/Day Years Used Date Never Smoker Smokeless Tobacco: Never Used Alcohol Use Standard Drinks/Week Comments Yes 0 (1 standard drink = 0.6 oz pure alcoho l) Sex Assigned at Date Recorded Not on file Last Filed Vital Signs Vital Sign Reading Time Taken Comments Blood Pressure 136/93 02/22/2021 11:40 PM CDT Pulse 96 02/22/2021 11:40 PM CDT Temperature 36.2 ??C (97.2 ??F) 02/22/2021 11:40 PM CDT Respiratory Rate 16 02/23/2021 1:00 AM CDT Oxygen Saturation 99% 02/23/2021 1:00 AM CDT Inhaled Oxygen Concentration - - Weight 67.2 kg (148 lb 3.2 oz) 09/28/2013 9:03 AM CDT Height 156.8 cm (5' 1.75) 09/28/2013 9:03 AM CDT Body Mass Index 27.33 09/28/2013 9:03 AM CDT Plan of Treatment Health Maintenance Due Date Last Done Comments ADVANCE CARE PLANNING 1987 ANNUAL REVIEW OF HM ORDERS 1987 PREVENTIVE CARE VISIT 1987 COVID-19 Vaccine (#1) 03/09/1988 HIV SCREENING 09/06/2002 HEPATITIS C SCREENING 09/06/2005 PAP 09/28/2016 09/28/2013 PHQ-2 (once per calendar 04/27/2021 year) INFLUENZA VACCINE (#1) 2021 01/29/2016, 01/29/2016, 04/03/2015, Additional history exists DTAP/TDAP/TD IMMUNIZATION 05/30/2029 05/30/2019, 05/24/2015 , (9 - Td or Tdap) 11/25/2010, Additional history exists IPV IMMUNIZATION Completed 10/24/1998, 11/11/1989, 03/24/1988 HEPATITIS B IMMUNIZATION Aged Out No long er eligible based on patient 's age to complete this topic MENINGITIS IMMUNIZATION Aged Out No longe r eligible based on patient 's age to complete this topic Pneumococcal Vaccine: Aged Out No longer eligible Pediatrics (0 to 5 Years) based on patient's age and At-Risk Patients (6 to to co mplete this topic 64 Years) Insurance Payer Benefit Plan / Subscriber ID Effective Phone Address T ype Group Dates ADENTS [facility]ICOPrecise SoftwareREHABILITATION HOSP[facility] OF S[facility]THERN NEW MEXICORotech Healthcare [id number] 2017-Pres [phone] [address] O OPEN ACCESS ent [address] [place] [address] Care Teams Suppression Crew Leader Relationship Specialty Start Date End Date Clinic, [facility] PCP - General 02/23/[address] [place] [address] [place] [address]
--- OUTSIDE RECORDS SUMMARY | 2022-01-23 23:51 | XMS_ITS | Encounter Summary ---
:1985 Author Organization [facility] Address [address] [address] Care Team Providers Name Role Phone Sharon Mijares MD Primary Care Provider [phone] Encounter Details Date Type Department Care Team Description 10/01/2006 PN Conversion Only [place] CONVERSION [address] [place] [address] Social History Tobacco Use Types Packs/Day Years Used Date Smoking Tobacco: Never Assessed Sex Assigned at Date Recorded Not on file documented as of this encounter Plan of Treatment Not on filedocumented as of this encounter Visit Diagnoses Not on filedocumented in this encounter Care Teams Nut Roaster Helper Relationship Specialty Start Date End Date Sharon Mijares MD PCP - General 07/30/10 [address] [place] [address] documented as of this encounter
--- OUTSIDE RECORDS SUMMARY | 2022-01-23 23:51 | XMS_ITS | Encounter Summary ---
:1985 Author Organization [place] Address [address] [place] [address] Care Team Providers Name Role Phone Stephania Morin APRN ASSEMBLIES AND INSTALLATIONS INSPECTOR Primary Care Provider [phone] Encounter Details Date Type Department Care Team Description 02/22/2021 Travel Social History Tobacco Use Types Packs/Day Years Used Date Never Smoker Smokeless Tobacco: Never Used Alcohol Use Standard Drinks/Week Comments Yes 0 (1 standard drink = 0.6 oz pure alcoho l) Sex Assigned at Date Recorded Not on file COVID-19 Exposure Response Date Recorded In the last month, have you been in contact with No / Unsure 02/22/2021 11:37 PM CDT someone who was confirmed or suspected to have Coronavirus / COVID-19? documented as of this encounter Plan of Treatment Not on filedocumented as of this encounter Visit Diagnoses Not on filedocumented in this encounter Care Teams Gravity Prospecting Operator Helper Relationship Specialty Start Date End Date Stephania Morin APRN PCP - General Nurse Practitioner - Family 02/22/[address] [address] documented as of this encounter
--- OUTSIDE RECORDS SUMMARY | 2022-01-23 23:51 | XMS_ITS | Encounter Summary ---
:1985 Author Organization [facility] Address [address] [address] Care Team Providers Name Role Phone Sharon Mijares MD Primary Care Provider [phone] Reason for Visit Reason Comments Other Encounter Details Date Type Department Care Team Description 11/22/2008 Telephone [facility], Message Other [address] [place], [place] [address] Social History Tobacco Use Types Packs/Day Years Used Date Smoking Tobacco: Never Assessed Sex Assigned at Date Recorded Not on file documented as of this encounter [facility], Message - 11/22/2008 2:16 PM CDT Phone Note filed by Corrupt Lace at 08/16/10 0734 Author: Corrupt Lace Service: (none) Author Type: (none) Filed: 08/16/10 0734 Note Time: 11/22/08 1416 Status: Signed Advisory Intern: Corrupt Lace (Resource) Front Line Sx Call Caller Name/Relationship:paula Latham Primary Investment Underwriter:non-established Symptom or request?pt states she has been sick with nauseous and vomtting for two day, feels fine today but wants to know if it is ok for her to go back to work. Is appointment scheduled & when?n Molder:Noa Best call back number:[phone] Is it OK to leave a confidential message on this voicemail? *ECODE~PNSX2 Created on 22Nov2008 2:16pm by AMBER WILLIS On 22Nov2008 3:17pm DEON OTTO wrote: C/B requested a callback On 22Nov2008 4:09pm VICTORINA ROCKWELL wrote: Pt is calling back and is requesting to speak with a nurse. Please advise.[phone] vm y. On 22Nov2008 4:19pm DEON OTTO wrote: Caller concerned that she had the swine flu. Symptoms have resolved, after two days of nausea and vomiting. Reassured her. She will return to work as states she is feeling fine now. RNATIONAL ACCOUNT EXECUTIVE documented in this encounter Plan of Treatment Not on filedocumented as of this encounter Visit Diagnoses Not on filedocumented in this encounter Care Teams Boom Cat Operator Relationship Specialty Start Date End Date Sharon Mijares MD PCP - General 07/30/10 [address] [place] [address] documented as of this encounter
--- OUTSIDE RECORDS SUMMARY | 2022-01-23 23:51 | XMS_ITS | Encounter Summary ---
:1985 Author Organization [facility] Address [address], [place] [address] Care Team Providers Name Role Phone Sharon Mijares MD Primary Care Provider [phone] Encounter Details Date Type Department Care Team Description 02/09/2008 Office Visit [place] [facility] Jose Caballero MD [place] [address] [address] [place] [address] [place] [address] [phone] Social History Tobacco Use Types Packs/Day Years Used Date Smoking Tobacco: Never Assessed Sex Assigned at Date Recorded Not on file documented as of this encounter Last Filed Vital Signs Vital Sign Reading Time Taken Comments Blood Pressure 116/68 02/09/2008 10:24 AM CDT Pulse 76 02/09/2008 10:24 AM CDT Temperature - - Respiratory Rate - - Oxygen Saturation - - Inhaled Oxygen Concentration - - Weight 67.8 kg (149 lb 6.1 oz) 02/09/2008 10:24 AM C: 6 7.8kg CDT Height - - Body Mass Index - - documented in this encounter Progress Notes Charity Caballero MD - 02/09/2008 12:01 AM CDT Progress Notes signed by Charity Caballero MD at 02/28/08 1737 Author: Charity Davalos MD Service: (none) Author Type: Physician Filed: 08/17/10 0801 Note Time: 02/09/08 0001 Status: Signed Mapping Analyst: Charity Davalos MD (Physician) NAME: NOA FRAGOSO MR#: [id number] ACCT: [id number] VISIT: [id number] DICTATING CLINICIAN: Charity Davalos MD CONFIRM #: [id number] LOC: 706 CLINIC PROGRESS NOTE DATE OF VISIT: 02/09/2008 SUBJECTIVE: CHIEF COMPLAINT: Headaches. HISTORY OF PRESENT ILLNESS: A 22-year-old female comes into clinic today for the above. Why she made the appointment, she has now had a headache for the past 4 days. This occurred Thursday and she first associated with doing some painting at her parent's home; however, it has persisted despite all the windows being open and she actually thinks it is more part of her headaches. Of note, she does live in a basement level of the home and does not think there are any other fumes, etc. there and they had painted in a well-ventilated area. She says the headache is over her frontal and scalp area. The place of headaches can change. There is no focal neurologic symptoms with this. There is no vision changes. Light and noise makes it worse. She does not have any nausea associated today, but at times does. She is taking 400 mg of Advil and 1000 mg of Tylenol. She alternates these and has not relieved the headache. She has had intermittent headaches now for the past 4 or 5 years, usually again lights in particularly do make it worse. She does not think they are associated with menstrual cycle or foods that she eats. At one point she had gone to a chiropractor for some neck discomfort. She thought possibly it had made them better. She has not seen a physician for this in the past. Has not noted trying any medications as prior they had not affected school or work. 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 She is finishing up some preliminary classes at this time. Lives with her parents. Is a life-long nonsmoker. Rare alcohol and tries to get regular exercise. Previously very healthy. REVIEW OF SYSTEMS: No other complaints. PAST MEDICAL HISTORY: Healthy. MEDICATIONS: As needed Advil and Tylenol. ADR/ALLERGIES: NO DRUG ALLERGIES. FAMILY HISTORY: No headaches or migraines in her family. No malignancies. OBJECTIVE: VS: BP: 116/68. P: 76. Wt: 149. GENERAL: Appears well, does not appear in acute pain. Eyes: Pupils are equal and reactive. Extraocular motions intact. NECK: Supple. HEART: Regular. No murmurs. LUNGS: Clear. Locomotive Operator strength is equal. Sensation normal to touch upper and lower extremities. Gait normal. There is no arm drift. ASSESSMENT: A 22-year-old female came to clinic today with headaches due to light sensitivity. Could be consistent with migraines; however, the last headache has lasted nearly 4 days, could be a cluster headache as well. Do a medication trial of Imitrex as well as Tylenol No. 3 if needed, limited number. Use, benefits, and side effects of both discussed. If she develops any worrisome signs, such as vision changes or focal neurologic complaints, would then proceed with imaging. If headaches further impact her work, or school, or other activities she would like to do, a consultation would be then placed for headache clinic. Declines a flu shot today. She will follow up for preventive health. PLAN: LIN:[id number] C: 02/09/08 14:15 CONFIRM #: [id number] ER SUPERVISOR documented in this encounter Plan of Treatment Not on filedocumented as of this encounter Visit Diagnoses Not on filedocumented in this encounter Care Teams Special Programs Director Relationship Specialty Start Date End Date Sharon Mijares MD PCP - General 07/30/10 [address] [place] [address] documented as of this encounter
--- OUTSIDE RECORDS SUMMARY | 2022-01-23 23:51 | XMS_ITS | Encounter Summary ---
:1985 Author Organization [place] Address [address] [place] [address] Care Team Providers Name Role Phone [facility], [facility] Primary Care Provider Encounter Details Date Type Department Care Team Description 02/23/2021 Documentation Only INTERFACED REPORT Unknown, Provider Social History Tobacco Use Types Packs/Day Years [...] on filedocumented in this encounter Care Teams Longwall Headgate Operator Relationship Specialty Start Date End Date [facility], [facility] PCP - General 02/23/[address] [place] [address] documented as of this encounter
--- OUTSIDE RECORDS SUMMARY | 2022-01-23 23:51 | XMS_ITS | Encounter Summary ---
:1985 Author Organization [facility] Address [address], [place] [address] Care Team Providers Name Role Phone Sharon Mijares MD Primary Care Provider [phone] Reason for Visit Reason Comments Other Encounter Details Date Type Department Care Team Description 02/09/2008 Telephone [facility] [place], Message Other [address] [place], [place] [address] Social History Tobacco Use Types Packs/Day Years Used Date Smoking Tobacco: Never Assessed Sex Assigned at Date Recorded Not on file documented as of this encounter [facility], Message - 02/09/2008 12:13 PM CDT Phone Note filed by Leaf at 08/15/1045 Author: Leaf Service: (none) Author Type: (none) Filed: 08/15/10 0745 Note Time: 02/09/08 1213 Status: Signed Type Caster: Leaf Medication Issue/Refill Caller Name/Relationship:Noa/pt Primary Compliance Auditor:Charity Treadwell Comment/Symptom:Pt is calling requesting to speak to a nurse in regards to some migraine rx she was prescribed today by Dr. Federico Davalos. Pt states that the rx is too expensive and she is wondering if there is a generic brand she could take instead. Pharmacy Name & Phone #:Unknown Pharmacy Street or City:Unknown Drug Name:Migraine rx Strength:Unknown Dose/Route/Freq:NA Marriage And Family Counselor:Noa/pt Best call back number:[phone] Is it OK to leave a confidential message on this voicemail?Y Created on 09Feb2008 12:13pm by ROOPA SHANE M On 09Feb2008 12:27pm STARLA MCLAIN wrote: Pt. is looking for an alternative for Imitrex due to the cost. spoke w/ the pharmacist who advised pt.needs to contact her insurance co.to ck.what medication is covered as they do no know. this nurse relayed this to pt. . INSERTER documented in this encounter Plan of Treatment Not on filedocumented as of this encounter Visit Diagnoses Not on filedocumented in this encounter Care Teams Animal Damage Control Agent Relationship Specialty Start Date End Date Sharon Mijares MD PCP - General 07/30/10 [address] [place] [address] documented as of this encounter
--- OUTSIDE RECORDS SUMMARY | 2022-01-23 23:51 | XMS_ITS | Encounter Summary ---
:1985 Author [facility] Address [address] [address] Care Team Providers Name Role Phone Sharon Mijares MD Primary Care Provider [phone] Encounter Details Date Type Department Care Team Description 02/13/2009 Office Visit [facility] Amy Castillo, [address] APRN, [place] [address] [place] [address] [address] [place], [place] [address] (Wo rk) Social History Tobacco Use Types Packs/Day Years Used Date Smoking Tobacco: Never Assessed Sex Assigned at Date Recorded Not on file documented as of this encounter Last Filed Vital Signs Vital Sign Reading Time Taken Comments Blood Pressure 123/86 02/13/2009 4:10 PM CDT Pulse 74 02/13/2009 4:10 PM CDT Temperature 36.7 ??C (98.1 ??F) 02/13/2009 4:10 PM CDT C: 36 .7 C Respiratory Rate - - Oxygen Saturation - - Inhaled Oxygen Concentration - - Weight 69.8 kg (153 lb 15.9 oz) 02/13/2009 4:10 PM CDT C: 69.9kg Height - - Body Mass Index - - documented in this encounter Progress Notes Amy Castillo, FANY, PROTEOMICS SCIENTIST - 02/13/2009 12:01 AM CDT Progress Notes signed by MEGAN Nelson at 02/13/09 8944 Author: MEGAN Nelson Service: (none) Author Type: Nurse Practitioner Filed: 08/17/10 1725 Note Time: 02/13/09 0001 Status: Signed Head Teller: MEGAN Nelson (Nurse Practitioner) SUBJECTIVE: 23-year-old female here for couple concerns. For the past week has had abdominal pain alternating from left to right. Constant pain 8/10 scale that is worse on the right side today and the left. Over the weekend. It was a sharp, shooting pain. She has bilateral flank pain. Denies any bladder problems. No rectal bleeding. No nausea, vomiting, or fevers. She had small pebbly stools one week ago, and has been since. A laxative only caused runny stools. She also has chronic headaches. Can occur 3 to 4 times a week and last 3 to 4 days. Has been using a lot of Tylenol. Denies any URI symptoms. She did see a doctor in the past and treated for sinusitis. Brother has kidney stones. Nonsmoker. Rare caffeine. Adverse Drug Reactions: None Medications: None. OBJECTIVE: Vital Signs : BP 123/86, pulse 74, temp 98.1, weight 154 pounds. General: Alert, healthy appearing female in distress. Ears: Canals and TM's normal without lesions. Neck: Supple, without masses, lymphadenopathy or tenderness. Heart: RR without murmurs, rubs, or gallops. Respiratory: Normal respiratory effort. Lungs are clear with good breath sounds. Abdomen: Tenderness over the entire abdomen especially the right mid abdomen. There is no obvious masses or organomegaly. Back: Mild tenderness over distal bilateral flank area. Extremities: Full ROM without limitation, deformity or edema. Labs: Urinalysis was unremarkable ASSESSMENT: 1. Abdominal pain and flank pain. 2. Chronic headaches. PLAN: Vicodin was given for nighttime pain. Recommend starting MiraLax. CT scan abdomen and pelvis without contrast for kidney stone protocol, will contact results. Keep a log of headache symptoms and follow up in the headache clinic. Recommend decreasing her Tylenol use. The patient was discharged ambulatory and in stable condition. *SH~DNS~SOAP documented in this encounter Plan of Treatment Not on filedocumented as of this encounter Visit Diagnoses Not on filedocumented in this encounter Care Teams Scrap Crusher Relationship Specialty Start Date End Date Sharon Mijares MD PCP - General 07/30/10 [address] [place] [address] documented as of this encounter
--- OUTSIDE RECORDS SUMMARY | 2022-01-23 23:51 | XMS_ITS | Encounter Summary ---
:1985 Author Organization [facility] Address [address] [address] Care Team Providers Name Role Phone Sharon Mijares MD Primary Care Provider [phone] Encounter Details Date Type Department Care Team Description 12/06/2008 Office Visit [facility] Amy Castillo, [address] Barrera [place], [place] [address] [place] [address] [address] [place], [place] [address] (Wo rk) Social History Tobacco Use Types Packs/Day Years Used Date Smoking Tobacco: Never Assessed Sex Assigned at Date Recorded Not on file documented as of this encounter Last Filed Vital Signs Vital Sign Reading Time Taken Comments Blood Pressure 100/60 12/06/2008 9:48 AM CDT Pulse 60 12/06/2008 9:48 AM CDT Temperature - - Respiratory Rate - - Oxygen Saturation - - Inhaled Oxygen Concentration - - Weight 67.6 kg (148 lb 15.8 oz) 12/06/2008 9:48 AM CDT C: 67.6kg Height - - Body Mass Index - - documented in this encounter Progress Notes Amy Castillo APRN, GABBY - 12/06/2008 12:01 AM CDT Progress Notes signed by MEGAN Nelson at 12/06/08 1258 Author: MEGAN Nelson Service: (none) Author Type: Nurse Practitioner Filed: 08/17/10 1540 Note Time: 12/06/08 0001 Status: Signed Scrap Drop Operator: MEGAN Nelson (Nurse Practitioner) Acute Clinic Visit IMPRESSION: Uncomplicated urinary tract infection (599.0) SUBJECTIVE: History of Present Illness: Symptom(s): 23 yr old female here with possible UTI. Dysuria and urinary frequency x 2 days. No abdominal pain, flank pain or fever. Became sexually active for the first time 2 weeks ago with one night stand after drinking. This was unprotected and used Plan B. Currently has menses. Denies vaginal itching or discharge. Past Medical History: Current Medications: None Adverse Drug Reactions: None Chronic Medications: None: OBJECTIVE: Weight: 149 lbs. Pulse: 60 Blood Pressure: 100/60 General Appearance: Well-appearing Abdomen: Normoactive bowel sounds, soft, nontender without organomegaly or masses Back: Nontender to palpation and percussion Labs: Urinalysis consistent with UTI, see lab results in the Electronic Medical Record. ASSESSMENT: Uncomplicated urinary tract infection (599.0) PLAN: Urine culture Ciprofloxacin (Cipro) 250 mg PO BID x 3 days UTI instructions: Reviewed common medication side effects. Take medication as directed. Push fluids. Return if symptoms aren't resolved or markedly improved in 48 hours. Return if fever, chills or flank pain develop. Encouraged a pap smear and STD testing, she declines today and plans on rescheduling *SH~PC~UTI ~[place] Note completed on: 12/06/2008 12:57 PM documented in this encounter Plan of Treatment Not on filedocumented as of this encounter Visit Diagnoses Not on filedocumented in this encounter Care Teams Technical Writing Lead/Mgr Relationship Specialty Start Date End Date Sharon Mijares MD PCP - General 07/30/10 [address] [place] [address] documented as of this encounter
--- OUTSIDE RECORDS SUMMARY | 2022-01-23 23:51 | XMS_ITS | Encounter Summary ---
:1985 Author Organization [facility] Address [address] [address] Care Team Providers Name Role Phone Sharon Mijares MD Primary Care Provider [phone] Encounter Details Date Type Department Care Team Description 12/06/2008 PN Conversion Only [place] CONVERSION Amy Castillo, [address] [address] [facility] [address] FINE ARTIST, [place] [address] [address] (Wo rk) Social History Tobacco Use Types Packs/Day Years Used Date Smoking Tobacco: Never Assessed Sex Assigned at Date Recorded Not on file documented as of this encounter Plan of Treatment Not on filedocumented as of this encounter Procedures Procedure Name Priority Date/Time Associated Comments Diagnosis URINALYSIS ROUTINE, Routine 12/06/2008 9:52 AM Re sults for this MICRO/CULTURE IF POS CDT procedu re are in the results section. URINALYSIS Routine 12/06/2008 9:52 AM Results f or this MICROSCOPIC CDT procedure are i n the results section. URINE CULTURE Routine 12/06/2008 9:52 AM Results for this CDT procedure are i n the results section. documented in this encounter Results Urine Culture (12/06/2008 9:52 AM CDT) [facility] Time Signature Urine Culture SEE TEXT HP CONVERSION Comment: Patient: NOA FRAGOSO Culture, Urine ?Collected: ??[id number] ??[id number] Source: Clean Ca ?Processed: ??[id number] ??[id number] ? 1P Final Report ------ ?[id number] ??[id number] 10-50,000 CFU/mL mixed gram positive org anisms No further workup Specimen (Source) Anatomical Collection Method Collection Time Re ceived Time Location / / Volume Laterality 12/06/2008 9:52 AM CDT Amy Castillo APRN, AUTO BODY ESTIMATOR LAB_1 Performing Organization Address City/State/ZIP Code Phon e Number HP CONVERSION (ABNORMAL) Urinalysis Routine, Micro/Culture if Pos (12/06/2008 9:52 AM CDT) [facility] gist Method Time Signature Turbidity Clear No normal HP CONVERSION range pH Urine 7.0 4.5 - 7.5 HP CONVERSION Protein Urine Negative Neg-Trac HP CONVERSION Glucose, Negative Neg-Trac HP CONVERSION Qualitative U Ketones Negative Negative HP CONVERSION U BILI Negative Negative HP CONVERSION Blood Urine Large (A) Negative HP CONVERSION Nitrite Urine Negative Negative HP CONVERSION Leukocyte Trace (A) Negative HP CONVERSION Esterase Urine Urobilinogen Negative 0.2 - 1.0 HP CONVERSION Urine U Specific <=1.005 1.005 - 25 HP CONVERSION [place] Specimen (Source) Anatomical Collection Method Collection Time Re ceived Time Location / / Volume Laterality 12/06/2008 9:52 AM CDT Amy Nirmal Castillo APRN, GABBY LAB_1 Performing Organization Address [facility] Phon e Number HP CONVERSION (ABNORMAL) Urinalysis Microscopic (12/06/2008 9:52 AM CDT) P athologist Signature White Blood 3-4/HPF 0 - 3 HP CONVERSION Cells Urine Comment: Urine culture has been ordered per r eflex test protocol. Red Blood Cells Urine 25-49/HP (A) 0 - 2 HP CO NVERSION Comment: Urine culture has been ordered per r eflex test protocol. Bacteria Urine Few (A) None HP CONVERSION Comment: Urine culture has been ordered per r eflex test protocol. Epithelial Cells Moderate Few /HPF HP CONVERSION Comment: Urine culture has been ordered per r eflex test protocol. Specimen (Source) Anatomical Collection Method Collection Time Re ceived Time Location / / Volume Laterality 12/06/2008 9:52 AM CDT Amy Castillo APRN, CNP LAB_1 Performing Organization Address [facility] Phon e Number HP CONVERSION documented in this encounter Visit Diagnoses Not on filedocumented in this encounter Care Teams Emergency Service Restorer Relationship Specialty Start Date End Date Sharon Mijares MD PCP - General 07/30/10 [address] [place] [address] documented as of this encounter
--- OUTSIDE RECORDS SUMMARY | 2022-01-23 23:51 | XMS_ITS | Encounter Summary ---
:1985 [facility] Address [address], [place] [address] Care Team Providers Name Role Phone Sharon Mijares MD Primary Care Provider [phone] Encounter Details Date Type Department Care Team Description 10/01/2006 Office Visit [facility] Car e Teri Albert MD [address] [place] [address] [place] [address] [phone] Social History Tobacco Use Types Packs/Day Years Used Date Smoking Tobacco: Never Assessed Sex Assigned at Date Recorded Not on file documented as of this encounter Last Filed Vital Signs Vital Sign Reading Time Taken Comments Blood Pressure 116/73 10/01/2006 7:42 PM CDT Pulse 101 10/01/2006 7:42 PM CDT Temperature 36.7 ??C (98.1 ??F) 10/01/2006 7:42 PM ORAL C: 3 6.7 C CDT Respiratory Rate 16 10/01/2006 7:42 PM CDT Oxygen Saturation - - Inhaled Oxygen Concentration - - Weight - - Height - - Body Mass Index - - documented in this encounter Progress Notes Teri Albert MD - 10/01/2006 12:01 AM CDT Progress Notes signed by Teri Albert MD at 10/15/06 5605 Author: Teri Albert MD Service: (none) Author Type: Physician Filed: 08/16/102002 Note Time: 10/01/062010 Status: Signed Ceramic Tile Setter: Teri Albert MD (Physician) NAME: NOA FRAGOSO MR#: [id number] ACCT: [id number] VISIT: [id number] DICTATING CLINICIAN: TERI ALBERT MD JOB: [id number] LOC: 820 CLINIC PROGRESS NOTE DATE OF VISIT: 10/01/2006 SUBJECTIVE: : 1985. CHIEF COMPLAINT: Left-sided abdominal pain. HISTORY OF PRESENT ILLNESS: A 21-year-old female here with friend, presents with abdominal pain. One week ago she had some generalized bloating. For now the last 3 days, has had some left-sided deep pelvic pain. Underlying pain 4/10 at times lasting for up to a few hours. She feels best if bends over. She is also on her period. She has some cramps and this feels worse than her cramps. She has no dysuria, frequency or urgency. No flank pain, no right lower quadrant pain. She is not sexually active. She is ??right in her period now?? and the bloating started about mid cycle. No history of ovarian cyst, no history of similar pain in the past, no previous abdominal surgery. No other acute or chronic problems of significance. MEDS: None. ADR/ALLERGIES: NONE. REVIEW OF SYSTEMS: Noa is a nonsmoker, ? 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 Review of systems otherwise completely negative. OBJECTIVE: VS: BP: 116/73. T: 98.1. P: 101. R: 16. ABDOMEN: Soft, tender left lower quadrant without rebound, guarding or mass. PELVIC: Recommended but she was on period and she declined at this point. She understands that the purpose of this is that more diagnostic decisions regarding pelvic pain and so forth. No right-sided pain, no rebound tenderness. Lab was done. Shows a white count of 10,600, hemoglobin 14.7, 64 polys, 26 lymphs. ASSESSMENT: Left lower quadrant pelvic pain most likely ovarian cyst. PLAN: 1. 2. She will use Advil for pain 800 t.i.d. For pain that is not relieved by Advil she was given Vicodin 5/500, 1 up to t.i.d. Sedative precautions. No driving or alcohol, 20 tablets with no refills. 3. If pain should become excessive, develop fever, excessive bleeding, return to the closest emergency room for re-evaluation. Possible emergency ultrasound or CAT scan. RWJ:[id number] C: 10/02/06 11:28 DOCUMENT: [id number] documented in this encounter Plan of Treatment Not on filedocumented as of this encounter Visit Diagnoses Not on filedocumented in this encounter Care Teams Moving Van Driver Relationship Specialty Start Date End Date Sharon Mijares MD PCP - General 07/30/10 [address] [place] [address] documented as of this encounter
--- OUTSIDE RECORDS SUMMARY | 2022-01-23 23:51 | XMS_ITS | Encounter Summary ---
:1985 [facility] Address [address], [place] [address] Care Team Providers Name Role Phone Sharon Mijares MD Primary Care Provider [phone] Reason for Visit Reason Comments Other Encounter Details Date Type Department Care Team Description 01/16/2009 Telephone [facility], Message Other [address] [place], [place] [address] Social History Tobacco Use Types Packs/Day Years Used Date Smoking Tobacco: Never Assessed Sex Assigned at Date Recorded Not on file documented as of this encounter [facility], Message - 01/16/2009 3:18 PM CDT Phone Note filed by [employer] at 08/16/10 9266 Author: [employer] Service: (none) Author Type: (none) Filed: 08/16/10 1831 Note Time: 01/16/09 1518 Status: Signed Apprentice Cosmetologist: [employer] (Resource) Front Line Sx Call Caller Name/Relationship: Noa mitchell [employer] Parts Sales Counterperson: Amy Castillo Symptom or request? Noa states her throat feels swollen and it feels like there is something stuck in it. States its been like this for the past few days. Is appointment scheduled & when? No Knockdown Worker: Noa pt Best call back number: [phone] Is it OK to leave a confidential message on this voicemail? yes *[id number] Created on 16Jan2009 3:18pm by KAMRYN ROSALES On 16Jan2009 3:29pm SANGEETA BURKETT wrote: Pt calling. She tells me that she has had some right sided throat sensation of throat fullness for about two days. She denies pain, swelling, visible redness, foul taste in the mouth or other symptoms. She does not recall eating anything that may have become stuck or burned. Denies other symptoms. She is swallowing and breathing without difficulty.She does have issues with seasonal allergies and has had issues with acid reflux in the past. Offered appt tomorrow, but pt declined and scheduled for 01/18/09. She will call back with new or worsening symptoms. She agrees with plan. OLOGIC TECHNOLOGY INSTRUCTOR documented in this encounter Plan of Treatment Not on filedocumented as of this encounter Visit Diagnoses Not on filedocumented in this encounter Care Teams Epic Cadence Specialists Relationship Specialty Start Date End Date Sharon Mijares MD PCP - General 07/30/10 [address] [place] [address] documented as of this encounter
--- OUTSIDE RECORDS SUMMARY | 2022-01-23 23:51 | XMS_ITS | Encounter Summary ---
:1985 Author Organization [facility] Address [address], [place] [address] Care Team Providers Name Role Phone Sharon Mijares MD Primary Care Provider [phone] Encounter Details Date Type Department Care Team Description 10/01/2006 PN Conversion Only [facility] Cristopher Rees, [address] [place], [place] [address] [facility] [id number] [place] [address] Social History Tobacco Use Types Packs/Day Years Used Date Smoking Tobacco: Never Assessed Sex Assigned at Date Recorded Not on file documented as of this encounter Plan of Treatment Not on filedocumented as of this encounter Procedures Procedure Name Priority Date/Time Associated Diagnosis Comme nts COMPLETE BLOOD Routine 10/01/2006 8:04 PM Results for this COUNT-W/DIFF CDT procedure are i n the results section. documented in this encounter Results (ABNORMAL) Complete Blood Count-W/Diff (10/01/2006 8:04 PM CDT) [facility] Method Time Signature White Blood Cell 10.6 3.8 - 11.0 HP CONVERSIO N Count K/cmm Red Blood Cell 4.84 3.70 - HP CONVERSION Count 5.20 m/cmm Hemoglobin 14.7 11.8 - HP CONVERSION 15.5 gm/dL Hematocrit 42.0 35.0 - HP CONVERSION 46.0 % Mean Corpuscular 86.7 80.0 - HP CONVERSION Volume 100.0 fl Mean Corpuscular 30.3 27.0 - HP CONVERSION Hemoglobin 34.0 pg Mean Corpuscular 35.0 32.0 - HP CONVERSION Hemoglobin Conc 36.5 gm/dL [place] RDW 12.1 11.0 - HP CONVERSION 15.0 % Platelet Count 479 (H) 140 - 450 HP CONVERSION k/cmm Differential Auto-Dif No normal HP CONVERSION Verify range Neutrophils 6.8 2.0 - 7.5 HP CONVERSION Absolute Count K/cmm Neutrophil 64.4 50.0 - HP CONVERSION 75.0 % Lymphocyte % 26.2 20.0 - HP CONVERSION 40.0 % Monocyte 8.3 5.0 - 14.0 HP CONVERSION % Eosinophil 0.8 0.0 - 6.0 HP CONVERSION % Basophil % 0.3 0.0 - 2.0 HP CONVERSION % Specimen (Source) Anatomical Collection Method Collection Time Re ceived Time Location / / Volume Laterality 10/01/2006 8:04 PM CDT Cristopher Rees MD LAB_1 Performing Organization Address City/State/[facility] Code Phon e Number HP CONVERSION documented in this encounter Visit Diagnoses Not on filedocumented in this encounter Care Teams Batch Attendant Relationship Specialty Start Date End Date Sharon Mijares MD PCP - General 07/30/10 [address] [place] [address] documented as of this encounter
--- OUTSIDE RECORDS SUMMARY | 2022-01-23 23:51 | XMS_ITS | Encounter Summary ---
:1985 Author Organization [facility] Address [address] [place] [address] Care Team Providers Name Role Phone Stephania Morin APRN [facility] Primary Care Provider [phone] [facility] Primary Care Provider [phone] Encounter Details Date Type Department Care Team Description 02/22/2021 - [facility] Ozzy Demarco MD Other migraine 02/23/2021 [facility] Emergency [facility] hout status Dept [place] migrainosus, not [address] her [facility] [address] [id number] [place] [address] (Wo rk) Social History Tobacco Use Types [...] / COVID-19? documented as of this encounter Last Filed [...] documented in this encounter Discharge Instructions Discharge InstructionsOzzy Demarco MD - 02/23/2021 1:19 AM CDT Discharge Instructions Migraine You were seen today for a headache that your provider thinks is likely a migraine. At this time yourprovider does not find that your headache is a sign of anything dangerous or life-threatening. However, sometimes the signs of serious illness do not show up right away. Generally, every Emergency Department visit should have a follow-up clinic visit with either a primary or a specialty clinic/provider. Please follow-up as instructed by your emergency provider today. Return to the Emergency Department if: You get a fever of 100.4??F or higher. You get a stiff neck with your headache. You get a new headache that is different or worse than headaches you have had before. You are vomiting (throwing up) and cannot keep food or water down. You have blurry or double vision or other problems with your eyes. You have a new weakness on one side of your body. You have difficulty with balance which is new. You or your family thinks you are confused. You have a seizure. Treatment: Often, treatment for your migraine will take some time to make you headache stop. Going home to sleep can be very effective. Use your medications as directed; overuse of medications can actually cause headaches. Once your headache has gone away, avoid triggers such as certain foods, skipping meals, bright lights, changes in sleep, exercise and stress. Migraine headaches can have symptoms before the pain starts, like vision changes, funny smells/tastes, dizziness or other symptoms. Treating a headache as soon as the first symptoms come on is very important and gives the best chance of stopping the headache. If headaches are severe or frequent, you may need to start daily medication to prevent the headaches. Carbon monoxide can cause headaches, so not burning things in your home is important. Also get a carbon monoxide detector. Some medications for migraines may raise your blood pressure, so use with caution if you have high blood pressure or heart problems. If you were given a prescription for medicine here today, be sure to read all of the information (including the package insert) that comes with your prescription. This will include important information about the medicine, its side effects, and any warnings that you need to know about. The pharmacist who fills the prescription can provide more information and answer questions you may have about the medicine. If you have questions or concerns that the pharmacist cannot address, please call or return to the Emergency Department. Remember that you can always come back to the Emergency Department if you are not able to see your regular provider in the amount of time listed above, if you get any new symptoms, or if there is anything that worries you. documented in this encounter Medications at Time of Discharge Medication Sig Dispensed Refills Start Date End Date acetaminophen (TYLENOL) Take 2 tablets (650 0 325 MG tabletIndications: mg) by mouth every 4 Kidney stone hours as needed for mild pain or fever oxyCODONE (ROXICODONE) 5 Take 1-2 tablets 20 tablet 0 04/11 MG tabletIndications: (5-10 mg) by mouth Kidney stone every 6 hours as needed for moderate to severe pain Vit-Fe Take 1 tablet by 0 Fumarate-FA ( mouth daily MULTIVITAMIN W/IRON) 27-0.8 MG tablet senna-docusate Use while taking 20 tablet 0 04/11/2019 (SENOKOT-S/PERICOLACE) narcotic 8.6-50 MG tabletIndications: Kidney stone documented as of this encounter ED Notes Ozzy Demarco MD - 02/23/2021 2:02 AM CDT Visit Date: 02/22/2021 CHIEF COMPLAINT: Headache. HISTORY OF PRESENT ILLNESS: A 35-year-old female with known history of migraines, who is here for evaluation of continued migraines at the end of December. She has been seen at [facility] of recent and had admission for continuous migraine with treatment. She had MRI imaging that was performed there thatwas otherwise negative. She notes that she is having continued headache that she describes as starting from her bilateral lower neck, radiating into her bilateral temples. Describes it as sharp, aching, and pounding sensation, currently a 10/10. It has gradually progressed since the end of December. She denies any nausea, vomiting, nor any photophobia. No fevers. She is requesting further interventions to help treat her headache. ALLERGIES: SUTURE, CLINDAMYCIN, GLYCOLIC ACID, LACTIC ACID, MONISTAT. MEDICATIONS: Prometrium, multivitamin, Ativan, Pyridium. PAST MEDICAL HISTORY: Migraine headache, anxiety. SOCIAL HISTORY: The patient is not a smoker. Denies any drug use. REVIEW OF SYSTEMS: CONSTITUTIONAL: Negative for fever. NEUROLOGIC: Positive for headache. All other review of systems are negative. PHYSICAL EXAMINATION: VITAL SIGNS: Blood pressure is 136/93, temperature 97.2 degrees Fahrenheit, pulse is 96, respiratoryrate 16, pulse ox 99% on room air. GENERAL: The patient is in mild distress secondary due to pain. EYES: Pupils are equal, react to light. Extraocular motors intact. EARS: TMs are clear. HEENT: Oral moist mucous membrane. No erythema. NECK: Supple. HEART: S1, S2 regular rate and rhythm. No murmurs, rubs, or gallops. LUNGS: Clear to auscultation bilaterally. No wheeze, rales, or rhonchi. ABDOMEN: Bowel sounds are positive, nontender, nondistended, no organomegaly. MUSCULOSKELETAL: 2+ distal pulses, no leg calf swelling, tenderness or edema. NEUROLOGIC: The patient is awake, alert and oriented x3, moves all 4 extremities spontaneously. Cranial nerves are grossly intact. She has no meningeal signs noted. DERMATOLOGIC: No rash. EMERGENCY DEPARTMENT COURSE AND TREATMENT: The patient was seen by ED physician and ED nurse. All findings were reviewed. All questions were answered. The patient was noted to have improved headache and was discharged home. INTERVENTIONS: 1. Valproic acid 500 mg IV. 2. Normal saline, 1 liter IV. 3. Benadryl 75 mg IV. 4. Ativan 1 mg IV. 5. Decadron 10 mg IV. 6. Compazine 10 mg IV. 7. Lidocaine 4% intranasal 11 mL bilateral nares. 8. Toradol 10 mg IV. MEDICAL DECISION MAKING: This is a 35-year-old female with a known history of migraines, complainingof a recurrent migraine ongoing since end december. She has had a large workup and admission that was done recently at [facility]. I see no reason to repeat this. I would highly doubt intracranial hemorrhage or meningitis and her need for further imaging or workup here today. Fortunately after interventions, her headache is currently feeling improved. At this time, I do believe she is otherwise appropriate for outpatient management. She already has established care with Neurology who itwas discussed she follow up with. She will return for worsening headache, fever, nausea, vomiting, any new symptoms or concerns. DISPOSITION: Home. Follow up with Neurology. DIAGNOSIS: Migraine. Ozzy Demarco MD MT: [id number] Name: NOA FRANCO Account: [id number] : 1985 Visit Date: 02/22/2021 Document: [id number] Safia Abraham RN - 02/23/2021 12:45 AM CDT Pt states feeling anxious and restless after compazine given - Updated Dr. Demarco. Compazine added to pt allergy list. Aileen Rees RN - 02/22/2021 11:39 PM CDT Pt to ER with c/o DIMAS that has last since Jan 12, frontal DIMAS pr states was admitted to [facility] to try infusions now DIMAS worse documented in this encounter Plan of Treatment Not on filedocumented as of this encounter Visit Diagnoses Diagnosis Other migraine without status migrainosu s, not intractable documented in this encounter Administered Medications Inactive Administered Medications - up to 3 most recent administrations Medication Order MAR Action Action Date Dose Rate Site 0.9% sodium chloride BOLUS New Bag 02/23/2021 12:21 AM 1,000 mLs 1000 mL/hr Intravenous, 1,000 mL, CDT ONCE, at 1,000 mL/hr, Administer over 1 Hours, On 02/23/21 at 0005, For 1 dose dexamethasone PF (DECADRON) injection 10 mg Given 02/23/2021 12:20 AM CDT 10 mg 10 mg, Intravenous, ONCE, Administer over 1 Minutes, On 02/23/21 at 0005, For 1 dose diphenhydrAMINE (BENADRYL) injection 25 mg Given 02/23/2021 12:57 AM CDT 25 mg 25 mg, Intravenous, ONCE, On 02/23/21 at 0050, For 1 dose diphenhydrAMINE (BENADRYL) injection 50 mg Given 02/23/2021 12:20 AM CDT 50 mg 50 mg, Intravenous, ONCE, On 02/23/21 at 0005, For 1 dose ketorolac (TORADOL) injection 10 mg Given 02/23/2021 12:20 AM CDT 10 mg 10 mg, Intravenous, ONCE, On 02/23/21 at 0005, For 1 dose, Can cause pain on injection. If ordered intravenously (IV) : administer through a running maintenance fluid over 1 minute followed by a flush. If patient complains of pain on injection, may dilute 15-30 mg in 5 mL and push over 1 to 2 minutes. lidocaine 4 % injection 0.5-1 mL Given 02/23/2021 12:19 AM CDT 0.5 mLs 0.5-1 mL, Intranasal, ONCE, On 02/23/21 at 0005, For 1 dose, Have patient lay down in supine position, with head tilted back (chin pointing toward the ceiling) and turned toward the side of the headache. Drip 0.5 mL into nare on side of headache and have patient sniff. If bilateral headache, repeat in other nare 1-2 minutes following first administration. LORazepam (ATIVAN) injection 1 mg Given 02/23/2021 12:57 AM CDT 1 mg 1 mg, Intravenous, ONCE, On 02/23/21 at 0050, For 1 dose, This drug may cause significant respiratory depression. Monitor respiratory status and vital signs carefully for 1 hour after each dose. prochlorperazine (COMPAZINE) injection 1 0 mg Given 02/23/2021 12:20 AM CDT 10 mg 10 mg, Intravenous, ONCE, Administer over 1-2 Minutes, On 02/23/21 at 0005, For 1 dose valproate (DEPACON) 500 mg in New Bag 02/23/2021 12:43 AM CDT 500 mg 100 mL/hr sodium chloride 0.9 % 50 mL intermittent infusion 500 mg, Intravenous, Administer over 30 Minutes, at 100 mL/hr, ONCE, On 02/23/21 at 0005, For 1 dose, Do not refrigerate. documented in this encounter Active and Recently Administered Medications Times are shown in CDT. Scheduled Medication Order 02/21/2021 02/22/2021 02/23/2021 0.9% sodium chloride BOLUS (COMPLETED) 002 (New Bag - Provider: Safia Abraham RN)0155 (Stopped - Provider: Safia Abraham RN) Intravenous, 1,000 mL, ONCE, at 1,000 mL /hr, Administer over 1 Hours, On 02/23/21 at 0005, For 1 dose dexamethasone PF (DECADRON) injection 10 mg (COMPLETED) 002 (Given - Provider: Safia Abraham, RN) 10 mg, Intravenous, ONCE, Administer ove r 1 Minutes, On 02/23/21 at 0005, For 1 dose diphenhydrAMINE (BENADRYL) injection 25 mg (COMPLETED) 005 (Given - Provider: Safia Abraham RN) 25 mg, Intravenous, ONCE, On 02/23/21 at 0050, For 1 dose diphenhydrAMINE (BENADRYL) injection 50 mg (COMPLETED) 002 (Given - Provider: Safia Abraham RN) 50 mg, Intravenous, ONCE, On 02/23/21 at 0005, For 1 dose ketorolac (TORADOL) injection 10 mg (COMPLETED) 19 (Given - Provider: Safia Abraham RN) 10 mg, Intravenous, ONCE, On Sat 1 at 0005, For 1 dose, Can cause pain on injection. If ordered intravenously (IV) : administer through a running maintenance fluid over 1 minute followed by a flu sh. If patient complains of pain on inje ction, may dilute 15-30 mg in 5 mL and push over 1 to 2 minutes. lidocaine 4 % injection 0.5-1 mL (COMPLETED) 0019 (Given - Provider: Safia Abraham RN) 0.5-1 mL, Intranasal, ONCE, On Sat 02/23 at 0005, For 1 dose, Have patient lay down in supine position, with head tilted back (chin pointing toward the ceiling) and turned toward the side of the head ache. Drip 0.5 mL into nare on side of h eadache and have patient sniff. If bilateral headache, repeat in other nare 1-2 minutes following first administration. LORazepam (ATIVAN) injection 1 mg (COMPLETED) 0057 (Given - Provider: Safia Abraham, LYLE) 1 mg, Intravenous, ONCE, On 02/23/21 at 0050, For 1 dose, This drug may cause significant respiratory depression. Monitor respiratory status and vital signs carefully for 1 hour after each dose. prochlorperazine (COMPAZINE) injection 10 mg (COMPLETED) 0020 (Given - Provider: Safia Abraham, LYLE) 10 mg, Intravenous, ONCE, Administer ove r 1-2 Minutes, On 02/23/21 at 0005, For 1 dose valproate (DEPACON) 500 mg in sodium chl oride 0.9 % 50 mL intermittent infusion (COMPLETED) 0043 (New Bag - Prov ider: Safia Abraham RN)0155 (Stopped - Provider: Safia Abraham RN) 500 mg, Intravenous, Administer over 30 Minutes, at 100 mL/hr, ONCE, On 02/23/21 at 0005, For 1 dose, Do not refrigerate. documented in this encounter Care Teams Breakdown Person Relationship Specialty Start Date End Date Stephania Morin APRN PCP - General Nurse Practitioner - Family 02/22/21 [facility] [address] [place] [address] [facility] PCP - General 02/23/[address] [address] documented as of this encounter
--- OUTSIDE RECORDS SUMMARY | 2022-01-23 23:51 | XMS_ITS | Encounter Summary ---
:[address] [facility] Address [address] [address] Care Team Providers Name Role Phone Sharon Mijares MD Primary Care Provider [phone] Encounter Details Date Type Department Care Team Description 02/09/2008 PN Conversion Only [facility] CONVERSION [address] [facility] [place] [address] Social History Tobacco Use Types Packs/Day Years Used Date Smoking Tobacco: Never Assessed Sex Assigned at Date Recorded Not on file documented as of this encounter Plan of Treatment Not on filedocumented as of this encounter Visit Diagnoses Not on filedocumented in this encounter Care Teams Sales And Service Associate Relationship Specialty Start Date End Date Sharon Mijares MD PCP - General 07/30/10 [address] [place] [address] documented as of this encounter
--- OUTSIDE RECORDS SUMMARY | 2022-01-23 23:51 | XMS_ITS | Encounter Summary ---
:1985 [facility] Address [address], [place] [address] Care Team Providers Name Role Phone Sharon Mijares MD Primary Care Provider [phone] Encounter Details Date Type Department Care Team Description 02/18/2008 Office Visit [facility] [place] [address] [facility] [address] [place] [address] [place] [address] [phone] (Wo rk) Social History Tobacco Use Types Packs/Day Years Used Date Smoking Tobacco: Never Assessed Sex Assigned at Date Recorded Not on file documented as of this encounter Plan of Treatment Not on filedocumented as of this encounter Visit Diagnoses Not on filedocumented in this encounter Care Teams Cath Lab Radiology Technician Relationship Specialty Start Date End Date Sharon Mijares MD PCP - General 07/30/10 [address] [place] [address] documented as of this encounter
--- OUTSIDE RECORDS SUMMARY | 2022-01-23 23:51 | XMS_ITS | Encounter Summary ---
:1985 Author Organization [facility] Address [address], [place] [address] Care Team Providers Name Role Phone Sharon Mijares MD Primary Care Provider [phone] Reason for Visit Reason Comments Other Encounter Details Date Type Department Care Team Description 12/07/2008 Telephone [facility], Message Other [address] [place], [place] [id number] Social History Tobacco Use Types Packs/Day Years Used Date Smoking Tobacco: Never Assessed Sex Assigned at Date Recorded Not on file documented as of this encounter [facility], Message - 12/07/2008 1:10 PM CDT Phone Note filed by [email or web address] at 08/16/10 7684 Author: [email or web address] Service: (none) Author Type: (none) Filed: 08/16/10 0814 Note Time: 12/07/08 1310 Status: Signed Cell Room Operator: [email or web address] (Resource) Front Line Sx Call Caller Name/Relationship:Noa Primary Manager Report:Mariah Graff Symptom or request?Pt is requesting to speak with a nurse regarding the pt's antibiotic that she states was prescribed to her yesterday, 12-06-08 for a bladder infection. Pt would like to know how soon the antibiotics are supposed to take effect. Please advise. Is appointment scheduled & when?no Customer Marketing Manager:Pt Best call back number:[phone] c Is it OK to leave a confidential message on this voicemail?yes *ECODE~PNSX2 Created on 07Dec2008 1:10pm by VICTORINA ROCKWELL On 07Dec2008 1:23pm KWADWO SANGEETA Emiliano wrote: Pt calling. She was seen 12/06/08 and diagnosed with UTI. She was given Cipro 250mg bid. She has taken three doses of medication and her symptoms remain the same as yesterday. Denies new or worsening symptoms. Advised she may need to wait 48 hours for antibiotic to start relieving symptoms. She is concerned that she only has one more day of Cipro left after today. She is asking if another med may be needed. She uses [facility] #738. On 07Dec2008 1:37pm MARIAH GRAFF wrote: the culture didn't really grow much. i would recommend finishing antibiotic and return for STD testing or checking and checking for yeast. Acknowledged by MARIAH GRAFF on 1:37pm On 07Dec2008 3:37pm KAMRYN WEEKS wrote: patient will finish antibiotic and call for appt if no improvement Acknowledged by KAMRYN WEEKS on 3:37pm On 08Dec2008 12:03pm KAMRYN ROSALES wrote: Pt calling back regarding above.[phone] On 08Dec2008 12:15pm SONJA FLORES wrote: PT calling back; Informed her of the above that she should be seen again if her sx are persisting; Pt asked what other things could be possible ; Went over note again from Mariah Graff and pt stated she will think about coming in; D TECHNICIAN documented in this encounter Plan of Treatment Not on filedocumented as of this encounter Visit Diagnoses Not on filedocumented in this encounter Care Teams Marine Underwriter Relationship Specialty Start Date End Date Sharon Mijares MD PCP - General 07/30/10 [address] [place] [address] documented as of this encounter
--- OUTSIDE RECORDS SUMMARY | 2022-01-23 23:51 | XMS_ITS | Encounter Summary ---
:1985 [facility] Address [address], [place] [address] Care Team Providers Name Role Phone Sharon Mijares MD Primary Care Provider [phone] Reason for Visit Reason Comments Other Encounter Details Date Type Department Care Team Description 11/28/2006 Telephone [facility] David Simental RN Other [address] [place] [address] Social History Tobacco Use Types Packs/Day Years Used Date Smoking Tobacco: Never Assessed Sex Assigned at Date Recorded Not on file documented as of this encounter Progress Notes David Simental RN - 11/28/2006 8:07 AM CDT Phone Note filed by David Simental RN at 08/14/10119 Author: David Simental RN Service: (none) Author Type: (none) Filed: 08/14/10119 Note Time: 11/28/06806 Status: Signed Yarn Salvager: Maycol Andrade CLINICIAN FOLLOW-UP: None IMPRESSION: Genital/Urinary symptom SEMI-URGENT SYMPTOMS: Urinary frequency, urgency or burning. Vaginal discharge and home management has been ineffective. Additional Symptoms: Patient calling with lower abdominal pressure. Said she thought it was a yeast infection so has been tx. with Monistat. Doesn't feel much different and wonders if the medication is working. Afebrile. Burning after urinating. Said has had lower abdominal pain before and was told has a cyst on one of her ovaries. Wants to know what to do? Denies any emergent, urgent symptoms PATIENT INFORMATION: Other Patient Information: g INTERIM/HOME MANAGEMENT RECOMMENDATIONS: Interim/Home Management not given: Patient is unclear about sx. so told could be several things and should be evaluated at Urgent Care. Advised to call back if: any other questions or concerns. PLAN: SCHEDULE APPOINTMENT WITHIN 12 HOURS Patient/Caller agrees with plan and denies additional questions. Reference(s) Used: [facility] Genital/Urinary Nursing Reference - Adult, Call Complete. *SH~PNNL~ GENITAL~ Created on 28Nov2006 8:07am by DAVID SIMENTAL T SERVICES ATTENDANT documented in this encounter Plan of Treatment Not on filedocumented as of this encounter Visit Diagnoses Not on filedocumented in this encounter Care Teams Director Of Recruitment And Admissions Relationship Specialty Start Date End Date Sharon Mijares MD PCP - General 07/30/10 [address] [place] [address] documented as of this encounter
--- OUTSIDE RECORDS SUMMARY | 2022-01-23 23:51 | XMS_ITS | Encounter Summary ---
:1985 [facility] Address [address] [address] Care Team Providers Name Role Phone Sharon Mijares MD Primary Care Provider [phone] Reason for Visit Reason Comments Other Encounter Details Date Type Department Care Team Description 07/18/2008 Telephone [facility] Sugar Lopez MD Other [address] [place] [address] [place], [place] [id number] (Wo rk) Social History Tobacco Use Types Packs/Day Years Used Date Smoking Tobacco: Never Assessed Sex Assigned at Date Recorded Not on file documented as of this encounter [facility], Message - 07/18/2008 8:13 AM CDT Phone Note filed by [employer] at 08/15/101942 Author: [employer] Service: (none) Author Type: (none) Filed: 08/15/101942 Note Time: 07/18/08812 Status: Signed Stations Superintendent: [employer] (Resource) Front Line Sx Call Caller Name/Relationship:paula Latham Primary Commissioning Editor:does not have one Symptom or request? burned tongue while drinking hot tea Is appointment scheduled & when?n Senior Behavioral Scientist:Noa Best call back number:[phone] c Is it OK to leave a confidential message on this voicemail?y *ECODE~PNSX2 Created on 18Jul2008 8:13am by GREGOR CHOE On 18Jul2008 8:19am ALEXSANDER ESTEVEZ wrote: Patient drank some Hot tea yesterday and felt her tongue was burned. Denies any blisters or redness. Tongue is bumpy and sensitive today.Able to eat and drink. Encouraged patient to drink cold liquids today and that mouths heal pretty quickly. Patient comfortable with plan. FYI On 18Jul2008 8:56am CANDIS DAVIDSON wrote: Please forward to Charity Davalos MD. Acknowledged by CANDIS DAVIDSON on 8:56am On 18Jul2008 3:51pm LUIS FELIPE LOPEZ wrote: Forwarded to marilou SHERMAN for review and completion Acknowledged by SUGAR LOPEZ on 5:18pm On 27Jul2008 1:13pm CHARITY WILLINGHAM wrote: noted. Acknowledged by CHARITY WILLINGHAM on 1:13pm Y MIXER documented in this encounter Plan of Treatment Not on filedocumented as of this encounter Visit Diagnoses Not on filedocumented in this encounter Care Teams Organizational Development Specialist Relationship Specialty Start Date End Date Sharon Mijares MD PCP - General 07/30/10 [address] [place], [place] [id number] documented as of this encounter
--- OUTSIDE RECORDS SUMMARY | 2022-01-23 23:52 | XMS_ITS | Encounter Summary ---
:1985 Author Organization [facility] Address [address] [place] [address] Care Team Providers Name Role Phone Mer Hoang APRN C.N.P., D.N.P. Primary Care Provider Reason for Visit Reason Comments Med Refill Encounter Details Date Type Department Care Team Description 12/25/2021 Refill Department of Family Medicine, Enriqueta Lock, Med Refill [facility], in [place] [address] [phone] Social History Tobacco Use Types Packs/Day Years Used Date Smoking Tobacco: Never Smokeless Tobacco: Never Alcohol Use Standard Drinks/Week Comments Not Currently 3 (1 standard drink = 0.6 oz pure alcoho l) Alcohol Habits Answer Date Recorded How often do you have a drink containing alcohol? Never 05/31/2021 How many drinks containing alcohol do you have on a typical 3 or 4 04/01/2021 day when you are drinking? How often do you have six or more drinks on one occasion? Ne marni 04/01/2021 Comment: Not asked Social Isolation Answer Date Recorded In a typical week, how many times do you More than three susannah es a week 05/31/2021 talk on the phone with family, friends, or neighbors? How often do you get together with friends More than three t imes a week 05/31/2021 or relatives? How often do you attend gnosticist or More than 4 times per year 05/31/2021 congregation services? Do you belong to any clubs or Yes 05/31/2021 organizations such as gnosticist groups, unions, fraternal or athletic groups, or school groups? How often do you attend meetings of the More than 4 times pe r year 05/31/2021 clubs or organizations you belong to? Are you now , , , 05/31/2021 , never or living with a partner? Physical Activity Answer Date Recorded On average, how many days per week do you engage in moderate to 3 days 05/31/2021 strenuous exercise (like walking fast, running, jogging, dancing, swimming, biking, or other activities that cause a light or heavy sweat)? On average, how many minutes do you engage in exercise at th is 30 min 05/31/2021 level? Stress Answer Date Recorded Do you feel stress - tense, restless, nervous, or Only a lit tle 04/01/2021 anxious, or unable to sleep at night because your mind is troubled all the time - these days? Financial Resource Strain Answer Date Recorded How hard is it for you to pay for the very basics like Not h jaja at all 05/31/2021 food, housing, medical care, and heating? Intimate Partner Violence Answer Date Recorded Within the last year, have you been afraid of your partner o r No 05/31/2021 ex-partner? Within the last year, have you been humiliated or emotionall y No 05/31/2021 abused in other ways by your partner or ex-partner? Within the last year, have you been kicked, hit, slapped, or No 05/31/2021 otherwise physically hurt by your partner or ex-partner? Within the last year, have you been raped or forced to have any No 05/31/2021 kind of sexual activity by your partner or ex-partner? Food Insecurity Answer Date Recorded Within the past 12 months, you worried that your food would Never true 05/31/2021 run out before you got money to buy more. Within the past 12 months, the food you bought just didn't N ever true 05/31/2021 last and you didn't have money to get more. Transportation Needs Answer Date Recorded In the past 12 months, has lack of transportation kept you f rom No 05/31/2021 medical appointments or from getting medications? In the past 12 months, has lack of transportation kept you f rom No 05/31/2021 meetings, work, or getting things needed for daily living? Housing Stability Answer Date Recorded In the last 12 months, was there a time when you were Patien t refused 05/31/2021 not able to pay the mortgage or rent on time? In the last 12 months, how many places have you lived? 1 05/31/2021 In the last 12 months, was there a time when you did No 05/31/2021 not [address] to sleep or slept in a penitentiary (including now)? Education Answer Date Recorded What is the highest level of school Bachelor's degree (e.g., BA, AB, 03/21/2021 you have completed or the highest BS) degree you have received? Sex Assigned at Date Recorded Female 01/23/2021 7:15 AM CDT documented as of this encounter Miscellaneous Notes Telephone Encounter - Vane Morris - 12/26/2021 7:42 AM CDT Duplicate request documented in this encounter Plan of Treatment Not on filedocumented as of this encounter Visit Diagnoses Not on filedocumented in this encounter Additional Health Concerns Assessment Noted Time PHQ-9 Depression Total Score: 8 06/24/2021 3:34 PM SENIOR IT BUSINESS ANALYST documented as of this encounter Care Teams Virtual Assistant Relationship Specialty Start Date End Date Mer Hoang, FANY, C.N.P., PCP - General Family Medicine D.N.P. [address] [address] documented as of this encounter
--- OUTSIDE RECORDS SUMMARY | 2022-01-23 23:52 | XMS_ITS | Encounter Summary ---
:1985 Author Organization [facility] Address [address] [place] [address] Care Team Providers Name Role Phone Therese Lock P.A.-C., P.A. Primary Care Provider Unavaila ble Reason for Visit Reason Comments Parental segregation studies for child with genetic te sting Encounter Details Date Type Department Care Team Description 08/22/2021 Documentation Department of Medical Amber Davidson segregation Genetics in [place], Sushant MClarisaS., [facility] studies for child with [place] [address] [facility] genetic testing [address] [place] [phone] Social History Tobacco Use Types Packs/Day Years [...] or relatives? How often do you attend congregational or More than 4 times per year 05/31/2021 sabianism services? Do you belong to any clubs or Yes 05/31/2021 organizations such as congregational groups, unions, fraternal or athletic groups, or [...] place to sleep or slept in a skilled nursing (including now)? Education Answer Date Recorded What is the highest level of school Bachelor's degree (e.g., BA, AB, 03/21/2021 you have completed or the highest BS) degree you have received? Sex Assigned at Date Recorded Female 01/23/2021 7:15 AM CDT documented as of this encounter Progress Notes Amber Davidson M.S., [facility] - 08/22/2021 11:07 AM CDT CHIEF COMPLAINT/PURPOSE OF VISIT Note created for documentation purposes. Discussed collection of buccal sample sample for the purposes of clarifying Noa Franco's child's genetic testing results. The patient's child was seen in the Department of Clinical Genomics for a Genetic Counseling and Testing consultation. During that consultation, a large multi-gene testing panel for Short stature was recommended for the patient's child. IMPRESSION/REPORT/PLAN #1 Parental sample collection recommended for segregation studies to aid in the interpretation of proband (child of patient) genetic testing Genetic counseling was provided to facilitate genetic testing on the patient's child. During this consultation, we discussed the role of genetic testing as a potential means to identify an underlying genetic cause for the child's medical concerns. Informed consent was obtained verbally from the patient. As part of this process, we discussed obtaining a DNA sample from both parents, including Noa Franco (the proband's mother). This is commonly referred to as segregation analysis and was recommended for the purposes of clarifying and interpreting the proband (child's) genetic test results. The testing lab will be evaluating 53 genes in the proband; however, the lab will only test the parent for specific variants identified in the proband to determine inheritance patterns. This reduces but does not eliminate the risk for an incidental finding in the parent. Verbal consent was obtained during the child's appointment. An informed consent was sent to the patient for review. Results of parental testing will be included on the proband report only. There is no charge for parental testing if samples are submitted prior to the start of proband testing. PLAN A buccal sample sample will be collected and used to facilitate interpretation of the child's genetic testing. Results of genetic testing will be reported for the child only, under the child's name anddocumented in the child's medical record. PATIENT EDUCATION Ready to learn, no apparent learning barriers were identified. Entire time was spent counseling the patient. Patient and/or his parents expressed understanding of the content discussed. documented in this encounter Plan of Treatment Not on filedocumented as of this encounter Visit Diagnoses Not on filedocumented in this encounter Additional Health Concerns Assessment Noted Time PHQ-9 Depression Total Score: 8 06/24/2021 3:34 PM BOX TOE BUFFER documented as of this encounter Care Teams Pan Operator Relationship Specialty Start Date End Date Therese Lock P.A.Maximiliano., P.A. PCP - General Family Medicine 1 09/26/21 documented as of this encounter
--- OUTSIDE RECORDS SUMMARY | 2022-01-23 23:52 | XMS_ITS | Encounter Summary ---
:1985 Author Organization [facility] Address [address] [place] [address] Care Team Providers Name Role Phone Stephania Morin APRN, CNP Primary Care Provider Reason for Visit Reason Onset Date Comments Panel Management 12/23/2012 PAP Encounter Details Date Type Department Care Team Description 12/23/[address] [facility] Stephania Morin Pane l Management (PAP) [facility] [address] [facility] [address] [place] [address] [phone] (Wo rk) Social History Tobacco Use Types Packs/Day Years Used Date Never Smoker Smokeless Tobacco: Never Used Alcohol Use Standard Drinks/Week Comments Yes 0 (1 standard drink = 0.6 oz pure alcoho l) Sex Assigned at Date Recorded Not on file documented as of this encounter Miscellaneous Notes Telephone Encounter - Elvis Barnes - 02/09/2013 1:39 PM CDT Left message for patient to call back. Letter sent. Elvis Barnes MA Telephone Encounter - Tammy Denton - 12/23/2012 10:14 AM CDT Panel Management Review Date of last visit with a [facility] provider: NATAN MORIN REFRIGERATION PERSON on 11/16/12. Date of next visit with a [facility] provider: None. Problem List There is no problem list on file for this patient. Health Maintenance List Health Maintenance Topic Date Due ??? Pap Screening Q3 Yr (System Assigned) 09/06/2008 ??? Influenza Vaccine (System Assigned) 01/25/2013 ??? Tetanus Immunization ( [facility] Assigned) 11/25/2020 For diabetic patients with hypertension and/or hyperlipidemia, only choose diabetes. Patient has the following on her problem list: NA Composite cancer screening Chart review shows that this patient is due/due soon for the following Pap Smear No results found for this basename: pap No past surgical history on file. Is hysterectomy listed in surgical history? No Is mastectomy listed in surgical history? No Tobacco History History Smoking status ??? Never Smoker Smokeless tobacco ??? Never Used Summary: Patient is due/failing the following: PAP and PHYSICAL Action needed: Patient needs office visit for PAP AND PHYSICAL. Type of outreach: Phone, left message for patient to call back. Questions for provider review: None Please indicate office visit, lab, MTM, or nurse appt if needed. Indicate fasting or not fasting. Tammy Denton MA Chart routed to Care Team . documented in this encounter Plan of Treatment Not on filedocumented as of this encounter Visit Diagnoses Not on filedocumented in this encounter Care Teams Virtual Customer Assistant Relationship Specialty Start Date End Date Stephania Morin APRN PCP - General Nurse Practitioner - Family 02/22/[address] [address] documented as of this encounter
--- OUTSIDE RECORDS SUMMARY | 2022-01-23 23:52 | XMS_ITS | Encounter Summary ---
:1985 Author Organization [facility] Address [address] [place] [address] Care Team Providers Name Role Phone Unavailable Primary Care Provider Unavailable Reason for Visit Reason Comments Vaginal Problem Encounter Details Date Type Department Care Team Description 11/16/2012 Office Visit [facility] Stephania Morin, Leuk orrhea, not specified as infective (Primary Dx); [facility] [employer] Vaginitis [id number] [facility] [address] [place] [phone] (Wo rk) Social History Tobacco Use Types Packs/Day Years Used Date Never Smoker Smokeless Tobacco: Never Used Alcohol Use Standard Drinks/Week Comments Yes 0 (1 standard drink = 0.6 oz pure alcoho l) Sex Assigned at Date Recorded Not on file documented as of this encounter Last Filed Vital Signs Vital Sign Reading Time Taken Comments Blood Pressure 110/72 11/16/2012 8:27 AM CDT Pulse 70 11/16/2012 8:27 AM CDT Temperature 36.2 ??C (97.2 ??F) 11/16/2012 8:27 AM CDT Respiratory Rate - - Oxygen Saturation 100% 11/16/2012 8:27 AM CDT Inhaled Oxygen Concentration - - Weight 64 kg (141 lb) 11/16/2012 8:27 AM CDT Height 157.5 cm (5' 2) 11/16/2012 8:27 AM CDT Body Mass Index 25.79 11/16/2012 8:27 AM CDT documented in this encounter Patient Instructions Patient InstructionsStephania Mroin, INTEGRITY DIRECTOR - 11/16/2012 9:17 AM CDT Images from the original note were not included. Home Back SP Vaginal Infection: Understanding the Vaginal Environment The vagina is a canal. It connects the uterus (womb) to the outside of the body. The vagina is home to many types of bacteria and other tiny organisms. These different bacteria most often stay balancedin number. This keeps the vagina healthy. If the balance changes, an infection may result. A Healthy Environment Many types of bacteria are present in a healthy vagina. They don???t cause problems if their amountsstay balanced. Small amounts of yeast may also be present without causing problems. The most common type of bacteria in the vagina is lactobacillus. It helps keep the vagina at a low pH. A low pH keepsbad bacteria from taking over. Normal Vaginal Discharge The vagina makes fluid. It is sent out as discharge. This keeps the vagina healthy. Normal dischargecan be clear, white, or yellowish. Most women find that normal discharge varies in amount and color through the month. An Unhealthy Environment The vaginal environment may get out of balance. This may result in a vaginal infection. There are a few reasons this can happen. The pH may have changed. The amount of one organism, such as yeast, may increase. Or an outside organism may get into the vagina and throw off the balance. ?? Bacterial vaginosis (BV). BV is due to an imbalance in the normal bacteria in the vagina. Lactobacillus bacteria decrease. As a result, the numbers of bad bacteria increase. ?? Candidiasis(yeast infection). Yeast is a type of fungus. A yeast infection occurs when yeast cells in the vagina increase. They then attack vaginal tissues. A type of yeast called Lynda albicans is often involved. ?? Trichomoniasis (???trich?? ). Trich is a parasite. It is passed from one person to another duringsex. Men with trich often don???t have any symptoms. In women, it can take weeks or months before symptoms appear. ?? [id number] Tomeka Sharma, [address] [place] [address], [place] [address]. All rights reserved. This information is not intended as a substitute for professional medical care. Always follow your healthcare professional's instructions. documented in this encounter Progress Notes Stephania Morin NP - 11/16/2012 8:25 AM CDT SUBJECTIVE: Noa Scruggs is a 27 year old female who presents to clinic today for the following health issues: She got engaged last weekend, denies having had intercourse but has had genital- genital contact withher lopez who has HSV. Patient does not have insurance/wants minimal testing done today, denies genital lesions or pain but has thick white creamy curdy vaginal discharge, vagina feels swollen, denies odor. She used Monistat last night but had significant burning so washed it out. No urinary symptoms. Vaginal Symptoms ?? Onset: x5 days ?? Description: Vaginal Discharge: white creamy curd-like Itching (Pruritis): YES Burning sensation: YES Odor: no ?? Accompanying Signs & Symptoms: Pain with Urination: YES Abdominal Pain: no Fever: no ?? History: Sexually active: YES New Partner: no Possibility of : No ?? Precipitating factors: Recent Antibiotic Use: no ?? Alleviating factors: NA ?? Therapies Tried and outcome: Monistat OTC this AM with burning Problem list and histories reviewed & adjusted, as indicated. Additional history: as documented There is no problem list on file for this patient. History reviewed. No pertinent past surgical history. History Substance Use Topics ??? Smoking status: Never Smoker ??? Smokeless tobacco: Never Used ??? Alcohol Use: Yes History reviewed. No pertinent family history. Current Outpatient Prescriptions Medication Sig ??? fluconazole (DIFLUCAN) 150 MG tablet Take 1 tablet by mouth once for 1 dose. No Known Allergies Problem list, Medication list, Allergies, and Medical/Social/Surgical histories [facility] andupdated as appropriate. ROS: CONSTITUTIONAL:NEGATIVE for fever, chills, change in weight INTEGUMENTARY/SKIN: NEGATIVE for worrisome rashes, moles or lesions EYES: NEGATIVE for vision changes or irritation ENT/MOUTH: NEGATIVE for ear, mouth and throat problems RESP:NEGATIVE for significant cough or SOB CV: NEGATIVE for chest pain, palpitations or peripheral edema GI: NEGATIVE for nausea, abdominal pain, heartburn, or change in bowel habits : normal menstrual cycles MUSCULOSKELETAL: NEGATIVE for significant arthralgias or myalgia ENDOCRINE: NEGATIVE for temperature intolerance, skin/hair changes PSYCHIATRIC: NEGATIVE for changes in mood or affect OBJECTIVE: BP 110/72 Pulse 70 Temp 97.2 ??F (36.2 ??C) (Oral) Ht 5' 2 (1.575 m) Wt 141 lb (63.957 kg) BMI 25.79 kg/m2 SpO2 100% LMP 11/07/2012 Body mass index is 25.79 kg/(m^2). GENERAL APPEARANCE: healthy, alert and no distress EYES: Eyes grossly normal to inspection, PERRL and conjunctivae and sclerae normal HENT: ear canals and TM's normal and nose and mouth without ulcers or lesions NECK: no adenopathy, no asymmetry, masses, or scars and thyroid normal to palpation RESP: lungs clear to auscultation - no rales, rhonchi or wheezes CV: regular rates and rhythm, normal S1 S2, no S3 or S4 and no murmur, click or rub LYMPHATICS: normal ant/post cervical and supraclavicular nodes inguinal: no adenopathy ABDOMEN: soft, nontender, without hepatosplenomegaly or masses and bowel sounds normal (female): normal cervix- no CMT, adnexae, and uterus without masses and thick white creamy vaginal discharge, no odor MS: extremities normal- no gross deformities noted SKIN: no suspicious lesions or rashes NEURO: Normal strength and tone, mentation intact and speech normal PSYCH: mentation appears normal and affect normal/bright Diagnostic test results: Results for orders placed in visit on 11/16/12 (from the past 24 hour(s)) WET PREP Component Value Range Specimen Description Vagina Wet Prep Value: No yeast seen No clue cells seen No Trichomonas seen Micro Report Status FINAL 11/16/2012 ASSESSMENT/PLAN: 623.5 Leukorrhea, not specified as infective (primary encounter diagnosis) Comment: Plan: Chlamydia trachomatis PCR, Neisseria gonorrhoeae PCR, Wet prep 616.10 Vaginitis Comment: Will treat with Diflucan,instructed to avoid douching, always use condoms unless trying to conceive to Lessen risk of HSV infection. Return to clinic if not improved, new, or worsening symptoms. Plan: fluconazole (DIFLUCAN) 150 MG tablet See Patient Instructions Stephania Morin NP [facility] documented in this encounter Nursing Notes 11/16/2012 8:20 AM CDT >> MICHEL Harrison Nov 16, 2012 8:29 AM Patient presents with: Vaginal Problem Initial BP 110/72 Pulse 70 Temp 97.2 ??F (36.2 ??C) (Oral) Ht 5' 2 (1.575 m) Wt 141 lb (63.957 kg) BMI 25.79 kg/m2 SpO2 100% LMP 11/07/2012 Estimated Body mass index is 25.79 kg/(m^2) ascalculated from the following: Height as of this encounter: 5' 2(1.575 m). Weight as of this encounter: 141 lb(63.957 kg). BP completed using cuff size: regular Michel Platt MA documented in this encounter Plan of Treatment Not on filedocumented as of this encounter Procedures Procedure Name Priority Date/Time Associated Comments Diagnosis WET PREPARATION Routine 11/16/2012 8:44 AM Leukorrhea, not Res ults for this CDT specified as procedure are i n infective the results section. NEISSERIA GONORRHOEAE Routine 11/16/2012 8:44 AM Leukorrhea, n ot Results for this PCR CDT specified as procedure are i n infective the results section. CHLAMYDIA TRACHOMATIS Routine 11/16/2012 8:44 AM Leukorrhea, n ot Results for this PCR CDT specified as procedure are i n infective the results section. documented in this encounter Results Wet prep (11/16/2012 8:44 AM CDT) [facility] Method Time Signature Specimen Vagina [place] Description [facility] Wet Prep No yeast seen [place] No clue cells seen [facility] No Trichomonas seen Micro Report FINAL [place] Status 11/16/2012 [facility] Specimen Anatomical Collection Method Collection Time Receive d Time (Source) Location / / Volume Laterality 11/16/2012 8:44 AM 3 8:57 CDT AM CDT Stephania Morin APRN [facility] - MICRO GENERAL ORDERABL ES Performing Organization Address City/State/ZIP Code Phon e Number [facility] [place]EVEN SM[place] [address] [address] [address] [facility] [address] [place] [address] Neisseria gonorrhoeae PCR (11/16/2012 8:44 AM CDT) Component Value Ref Test Analysis Performed At [facility] Range Method Time Signature Specimen Cervix [facility] N Gonorrhea Negative for N. gonorrhoeae rRNA by electrical maintenance man mediated amplification. [facility] PCR A negative result by transc ription mediated amplification does not preclude the MICROBIOLOGY presence of N. gonorrhoeae infection because re sults are dependent on proper and adequate collection, absence of inhibitors, and suffici ent rRNA to be detected. Specimen Anatomical Collection Method Collection Time Receive d Time (Source) Location / / Volume Laterality Cervical swab 11/16/2012 8:44 AM 11/17/19 13 8:57 (specimen) CDT AM CDT Stephania Morin APRN, CNP LAB - MICRO GENERAL ORDERABL ES Performing Organization Address City/[facility]/ZIP Code Phon e Number [address] [address] [place] [address] [facility] MICROBIOLOGY Chlamydia trachomatis PCR (11/16/2012 8:44 AM CDT) Component Value Ref Test Analysis Performed At [facility] Method Time Signature Specimen Cervix [facility] Chlamydia Negative for C. trachomatis rRNA by electrical maintenance man mediated amplification. [facility] Trachomatis A negative result by transc ription mediated amplification does not preclude the MICROBIOLOGY PCR presence of C. trachomatis infection because results are dependent on proper and adequate collection, absence of inhibitors, and suffici ent rRNA to be detected. Specimen Anatomical Collection Method Collection Time Receive d Time (Source) Location / / Volume Laterality Cervical swab 11/16/2012 8:44 AM 11/17/19 13 8:57 (specimen) CDT AM CDT Stephania Morin APRN, CNP LAB - MICRO GENERAL ORDERABL ES Performing Organization Address City/[facility]/ZIP Code Phon e Number [address] [address] [place] [address] [phone] [facility] MICROBIOLOGY documented in this encounter Visit Diagnoses Diagnosis Leukorrhea, not specified as infective - Primary Vaginitis Vaginitis and vulvovaginitis, unspecifie d documented in this encounter
--- OUTSIDE RECORDS SUMMARY | 2022-01-23 23:52 | XMS_ITS | Encounter Summary ---
:1985 Author Organization [facility] Address [address] [place] [address] Care Team Providers Name Role Phone Irina Morin APRN CHIEF LIFESTYLE OFFICER Primary Care Provider [phone] Reason for Visit Reason Comments RECHECK seen in Urgent Care for yeas t Infection still have same symptoms Encounter Details Date Type Department Care Team Description 09/28/2013 Office Visit [facility] Irina Morin, Vagi nal pain (Primary Dx); [facility] [place] APRN CHIEF LIFESTYLE OFFICER Screen for STD (sexually transmitted dis ease); [address] [facility] for malignant neoplasm of the cervix; [facility] Overweight (BMI 25.0-29.9) [place] [address] [id number] (Wo rk) Social History Tobacco Use Types Packs/Day Years Used Date Never Smoker Smokeless Tobacco: Never Used Alcohol Use Standard Drinks/Week Comments Yes 0 (1 standard drink = 0.6 oz pure alcoho l) Sex Assigned at Date Recorded Not on file documented as of this encounter Last Filed Vital Signs Vital Sign Reading Time Taken Comments Blood Pressure 123/85 09/28/2013 9:03 AM CDT Pulse 105 09/28/2013 9:03 AM CDT Temperature 36.9 ??C (98.5 ??F) 09/28/2013 9:03 AM CDT Respiratory Rate - - Oxygen Saturation 100% 09/28/2013 9:03 AM CDT Inhaled Oxygen Concentration - - Weight 67.2 kg (148 lb 3.2 oz) 09/28/2013 9:03 AM CDT Height 156.8 cm (5' 1.75) 09/28/2013 9:03 AM CDT Body Mass Index 27.33 09/28/2013 9:03 AM CDT documented in this encounter Patient Instructions Patient InstructionsIrina Morin NP - 09/28/2013 10:10 AM CDT Images from the original note were not included. Preventing Vaginitis Vaginitis is irritation or infection of the vagina or vulva. It can be caused by bacteria, viruses, or yeast. Chemicals (such as in perfumes or soaps) can sometimes be a cause. You can help prevent vaginitis. Follow the tips below. And see your healthcare provider if you have any symptoms. Hygiene Use mild, unscented soap when you bathe or shower to avoid irritating your vagina. ?? Avoid chemicals. Do not use vaginal sprays. Do not use scented toilet paper or tampons that are scented. Sprays and scents have chemicals that can irritate your vagina. ?? Do not douche unless you are told to by your healthcare provider. Douching is rarely needed. And it upsets the normal balance in the vagina. ?? Wash yourself well. Wash the outer vaginal area (vulva) every day with mild, unscented soap. Keepit as dry as possible. ?? Wipe correctly. Make sure to wipe from front to back after a bowel movement. This helps keep fromspreading bacteria from your anus to your vagina. ?? Change your tampon often. During your period, make sure to change your tampon as often as directed on the package. This allows the normal flow of vaginal discharge. Lifestyle ?? Limit your number of sexual partners. The more partners you have, the greater your risk of infection. Using condoms helps reduce your risk. ?? Get enough sleep. Sleep helps keep your body???s immune system healthy. This helps you fight infection. ?? Lose weight, if needed. Excess weight can reduce air circulation around your vagina. This can increase your risk of infection. ?? Exercise regularly. Regular activity helps keep your body healthy. Clothing ?? Don???t sit in wet clothes. Yeast thrive when it???s warm and damp. ?? Don???t wear tight pants. And don???t wear tights, leggings, or hose without a cotton crotch. These types of clothing trap warmth and moisture. ?? Wear cotton underwear. Cotton lets air circulate around the vagina. Symptoms of Vaginitis ?? Irritation, swelling, or itching of the genital area ?? Vaginal discharge ?? Bad vaginal odor ?? Pain or burning during urination ?? [phone] [facility], [address] [place] [address]. All rights reserved. This information is not intended as a substitute for professional medical care. Always follow your healthcare professional's instructions. documented in this encounter Progress Notes Irina Morin NP - 09/29/2013 1:48 PM CDT Quick Note: Reviewed. Likely contaminated urine specimen. Irina Morin RN, CHIEF LIFESTYLE OFFICER Irina Morin NP - 09/28/2013 9:49 AM CDT Quick Note: Discussed/treated at visit. Irina Morin RN, CHIEF LIFESTYLE OFFICER Irina Morin NP - 09/28/2013 9:03 AM CDT SUBJECTIVE: Noa Fragoso is a 28 year old female who presents to clinic today for the following health issues: Patient seen in on Thursday for vaginal itching/burning- states she had negative wet prep but was given 4 day course of Diflucan. She continues to have itching and burning, with white discharge (not curdy), burning with urination and states genitals feel swollen. Her partner has history of HSV and they use condoms only when he has a rash which occurs infrequently. She Reports history of Monistat allergy (rash) and she did use Monistat externally 3 days ago for the itching. Vaginal Symptoms ?? Onset: 4 days ?? Description: Vaginal Discharge: white discharge Itching (Pruritis): YES Burning sensation: yes Odor: no ?? Accompanying Signs & Symptoms: Pain with Urination: no Abdominal Pain: no Fever: no ?? History: Sexually active: YES New Partner: YES Possibility of : No ?? Precipitating factors: Recent Antibiotic Use: YES ?? Alleviating factors: ?? Therapies Tried and outcome: Problem list and histories reviewed & adjusted, as indicated. Additional history: as documented Problem list, Medication list, Allergies, and Medical/Social/Surgical histories reviewed in EPIC andupdated as appropriate. ROS: Constitutional, HEENT, cardiovascular, pulmonary, gi and gu systems are negative, except as otherwise noted. OBJECTIVE: BP 123/85 Pulse 105 Temp(Src) 98.5 ??F (36.9 ??C) (Oral) Ht 5' 1.75 (1.568 m) Wt 148 lb 3.2oz (67.223 kg) BMI 27.34 kg/m2 SpO2 100% Body mass index is 27.34 kg/(m^2). GENERAL APPEARANCE: healthy, alert and no [...] rhythm, normal S1 S2, no S3 or S4, no murmur, click or rub and peripheral pulses strong LYMPHATICS: normal ant/post cervical and supraclavicular nodes inguinal: no adenopathy ABDOMEN: soft, nontender, without hepatosplenomegaly or masses and bowel sounds normal (female): Introitus with hypopigmented macular lesion with surrounding erythema, no ulceration, at 0600, otherwise, normal external genitalia, normal cervix, adnexae, and uterus without masses or discharge, pap obtained MS: extremities normal- no gross deformities noted SKIN: no suspicious lesions or rashes Diagnostic test results: Results for orders placed in visit on 09/28/13 (from the past 24 hour(s)) WET PREP Result Value Range Specimen Description Vagina Wet Prep Value: No Trichomonas seen No clue cells seen No yeast seen Micro Report Status FINAL 09/28/2013 UA MACROSCOPIC WITH REFLEX TO MICROSCOPIC AND CULTURE Result Value Range Color Urine Yellow Appearance Urine Clear Glucose Urine Negative NEG mg/dL Bilirubin Urine Negative NEG Ketones Urine Negative NEG mg/dL Specific [place] Urine 1.010 1.003 - 1.035 Blood Urine Negative NEG pH Urine 6.0 5.0 - 7.0 pH Protein Albumin Urine Negative NEG mg/dL Urobilinogen Urine 0.2 0.2 - 1.0 EU/dL Nitrite Urine Negative NEG Leukocyte Esterase Urine Trace (*) NEG Source Midstream Urine URINE MICROSCOPIC Result Value Range WBC Urine O - 2 0 - 2 /HPF RBC Urine O - 2 0 - 2 /HPF Squamous Epithelial /LPF Urine Moderate (*) FEW /LPF Bacteria Urine Few (*) NEG /HPF ASSESSMENT/PLAN: ICD-9-CM 1. 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 Screen for STD (sexually transmitted disease) V74.5 NEISSERIA GONORRHOEA PCR CHLAMYDIA TRACHOMATIS PCR *UA reflex to Microscopic and Culture 3. Screening for malignant neoplasm of the cervix V76.2 PAP imaged thin layer, screen Negative wet prep and UA is likely contaminated specimen. Await remainder of results, advised sitz baths, no douching, vaginal rest until symptoms are resolved, Ok to apply vaseline sparingly prn priorto urination to help with pain. If remainder of results negative, and lesion persists will send to [facility] for evaluation for possible lichen sclerosis. See Patient Instructions Return to clinic 2 weeks, sooner if not improved, new,. Or worsening symptoms. Irina Morin NP [facility] documented in this encounter Nursing Notes Renay Payton MA - 09/28/2013 9:06 AM CDT Chief Complaint Patient presents with ??? RECHECK seen in Urgent Care for yeast Infection still have same symptoms Initial BP 123/85 Pulse 105 Temp(Src) 98.5 ??F (36.9 ??C) (Oral) Ht 5' 1.75 (1.568 m) Wt 148 lb 3.2 oz (67.223 kg) BMI 27.34 kg/m2 SpO2 100% Estimated body mass index is 27.34 kg/(m^2) as calculated from the following: Height as of this encounter: 5' 1.75 (1.568 m). Weight as of this encounter: 148 lb 3.2 oz (67.223 kg). BP completed using cuff size: regular Renay Payton MA documented in this encounter Plan of Treatment Not on filedocumented as of this encounter Procedures Procedure Name Priority Date/Time Associated Comments Diagnosis URINE MICROSCOPIC Routine 09/28/2013 9:35 AM Vaginal pain Resu lts for this CDT procedure are i n the results section. UA MACROSCOPIC WITH Routine 09/28/2013 9:35 AM Screen for STD Results for this REFLEX TO MICROSCOPIC CDT (sexually proced ure are in AND CULTURE transmitted the results disease) section. HERPES SIMPLEX VIRUS Routine 09/28/2013 9:33 AM Vaginal pain R esults for this TYPE 1 AND 2 IGG CDT procedure a re in the results section. [place] MISCELLANEOUS Routine 09/28/2013 9:33 AM Vaginal pain Res ults for this TEST CDT procedure are i n the results section. WET PREPARATION Routine 09/28/2013 9:30 AM Vaginal pain Result s for this CDT procedure are i n the results section. NEISSERIA GONORRHOEAE Routine 09/28/2013 9:[address] D Results for this PCR CDT (sexually procedure are i n transmitted the results disease) section. CHLAMYDIA TRACHOMATIS Routine 09/28/2013 9:[address] D Results for this PCR CDT (sexually procedure are i n transmitted the results disease) section. PAP IMAGED THIN LAYER Routine 09/28/2013 12:00 Screening for R esults for this SCREEN AM CDT malignant neoplasm procedure are in of the cervix the results section. documented in this encounter Results (ABNORMAL) Urine Microscopic (09/28/2013 9:35 AM CDT) [facility] gist Method Time Signature WBC Urine O - 2 0 - 2 [facility] /HPF CLINICS [facility] RBC Urine O - 2 0 - 2 [facility] /HPF [facility] Squamous Moderate (A) FEW /LPF [facility] Epithelial CLINICS /LPF Urine [facility] Bacteria Urine Few (A) NEG /HPF [facility] Specimen Anatomical Collection Method Collection Time Receive d Time (Source) Location / / Volume Laterality 09/28/2013 9:35 AM 201 4 9:40 CDT AM CDT Irina Morin APRN CHIEF LIFESTYLE OFFICER LAB - URINE ORDERABLES Performing Organization Address City/[facility]/ZIP Code Phon e Number [facility] [id number] [address] [id number] (ABNORMAL) *UA reflex to Microscopic and Culture (09/28/2013 9:35 AM CDT) [facility] Method Time Signature Color Urine Yellow [facility] Appearance Urine Clear [facility] Glucose Urine Negative NEG mg/dL [facility] Bilirubin Urine Negative NEG [facility] Ketones Urine Negative NEG mg/dL [facility] Specific [place] 1.010 1.003 - [place] Urine 1.035 [facility] Blood Urine Negative NEG [facility] pH Urine 6.0 5.0 - 7.0 [place] pH [facility] Protein Albumin Negative NEG mg/dL [place] Urine [facility] Urobilinogen 0.2 0.2 - 1.0 [place] Urine EU/dL [facility] Nitrite Urine Negative NEG [facility] Leukocyte Trace (A) NEG [facility] Esterase Urine [facility] Source Midstream [place] Urine [facility] Specimen Anatomical Collection Method Collection Time Receive d Time (Source) Location / / Volume Laterality Urine specimen 09/28/2013 9:35 AM 2 014 9:40 (specimen) CDT AM CDT Irina Morin APRN, CNP LAB - URINE ORDERABLES Performing Organization Address City/[facility]/ZIP Code Phon e Number [facility] [address] [address] [id number] Herpes Simplex Virus 1 and 2 IgG (09/28/2013 9:33 AM CDT) [facility] gist Method Time Signature Herpes <0.2 0.0 - 0.8 [facility] Simplex Virus No HSV-1 IgG antibodies detected. [facility] Type 1 IgG CAMP[facility] LABS Herpes <0.2 0.0 - 0.8 [facility] Simplex Virus No HSV-2 IgG antibodies detected. [facility] 2 IgG [facility] Specimen Anatomical Collection Method Collection Time Receive d Time (Source) Location / / Volume Laterality 09/28/2013 9:33 AM 4 9:34 CDT AM CDT Irina Morin DIRECTOR BUSINESS DEVELOPMENT CHIEF LIFESTYLE OFFICER LAB - BLOOD ORDERABLES Performing Organization Address City/State/ZIP Code Phon e Number [facility] [address] [place], [place] [phone] [place] [address] LABS [place] Miscellaneous Test (09/28/2013 9:33 AM CDT) [facility] Method Time Signature Result SEE NOTE [facility] (Note) CLINICS Test name ?Result Flag ??Units ??RefIntvl KEVEN SMITH HSV 1 and/or 2 Abs, IgM by JOSE ?0.65 ?IV <=0.89 INTERPRETIVE INFORMATION: Herpes Simplex Virus Type 1 and/or 2 Antibodies, IgM by JOSE 0.89 IV or Less .......... Not Detected 0.90 - 1.09 IV ........... Indeterminate- Repeat testing in ?10-14 days may be helpful. 1.10 IV or Greater ....... Detected-IgM antibody to HSV ?detected, which ma y indicate a ?current or recent infection. ?However, low level s of IgM ?antibodies may occ asionally ?persist for more t medina 12 ?months post-infect ion. Performed by [facility], [address] [place] [id number] [email or web address], Luis Batres MD, Lab. Director Test Name HSV IGM BY JOSE [facility] Send Outs 50,641 [facility] Test [place] Code [facility] Send Outs Serum [facility] Specimen [facility] Specimen Anatomical Collection Method Collection Time Receive d Time (Source) Location / / Volume Laterality 09/28/2013 9:33 AM 4 9:34 CDT AM CDT Irina Morin APRN, CNP LAB - BLOOD ORDERABLES Performing Organization Address City/State/ZIP Code Phon e Number [facility] [address] [place], [place] [phone] [place] [address] [address] [address] [facility] Wet prep (09/28/2013 9:30 AM CDT) [facility] gist Method Time Signature Specimen Vagina [facility] Description [facility] Wet Prep No Trichomonas seen [facility] No clue cells seen [facility] No yeast seen [facility] Micro Report FINAL [facility] Status 09/28/2013 [facility] Specimen Anatomical Collection Method Collection Time Receive d Time (Source) Location / / Volume Laterality 09/28/2013 9:30 AM 4 9:41 CDT AM CDT Irina Morin APRN, CNP LAB - MICRO GENERAL ORDERABL ES Performing Organization Address City/State/ZIP Code Phon e Number [facility] [address] [address] [id number] CHLAMYDIA TRACHOMATIS PCR (09/28/2013 9:30 AM CDT) Component Value Ref Test Analysis Performed At [facility] [place] Range Method Time Signature Specimen Cervix [facility] Chlamydia Negative NEG [facility] Trachomatis Negative for C. trachomatis rRNA by spring coiler hand mediated amplification. MICROBIOLOGY PCR A negative result by transc ription mediated amplification does not preclude the presence of C. trachomatis infection because re sults are dependent on proper and adequate collection, absence of inhibitors, and suffici ent rRNA to be detected. Specimen Anatomical Collection Method Collection Time Receive d Time (Source) Location / / Volume Laterality Cervical swab 09/28/2013 9:30 AM 09/29/19 14 9:40 (specimen) CDT AM CDT Irina Morin APRN, CNP LAB - MICRO GENERAL ORDERABL ES Performing Organization Address City/[facility] Code Phon e Number [address] [address] [address] [address] [facility] MICROBIOLOGY NEISSERIA GONORRHOEA PCR (09/28/2013 9:30 AM CDT) Component Value Ref Test Analysis Performed At [facility] Method Time Signature Specimen Cervix [facility] N Gonorrhea Negative NEG [facility] PCR Negative for N. gonorrhoeae rRNA by transcripti on mediated amplification. MICROBIOLOGY A negative result by transc ription mediated amplification does not preclude the presence of N. gonorrhoeae infection because re sults are dependent on proper and adequate collection, absence of inhibitors, and suffici ent rRNA to be detected. Specimen Anatomical Collection Method Collection Time Receive d Time (Source) Location / / Volume Laterality Cervical swab 09/28/2013 9:30 AM 09/29/19 14 9:40 (specimen) CDT AM CDT Irina Morin APRN, CNP LAB - MICRO GENERAL ORDERABL ES Performing Organization Address City/[facility] Phon e Number [address] [address] [address] [address] [facility] MICROBIOLOGY PAP imaged thin layer, screen (09/28/2013 12:00 AM CDT) Component Value Ref Test Analysis Performed At [facility] Range Method Time Signature PAP NIL [facility] Copath Report [facility] Patient Name: NOA FRAGOSO MR#: [id number] Specimen #: [id number] Collected: 09/28/2013 Received: 09/28/2013 Reported: 09/30/2013 14:13 Ordering Phy(s): IRINA MORIN SPECIMEN/STAIN PROCESS: Pap imaged thin layer prep screening (Surepath, FocalPoint w ith guided screening) ? Pap-Cyto x 1 SOURCE: Cervical, endocervical ---- Pap imaged thin layer prep screening (Surepath, FocalPoint with guided screening) SPECIMEN ADEQUACY: Satisfactory for evaluation. -Transformation zone component absent. CYTOLOGIC INTERPRETATION: Negative for Intraepithelial Lesion or Malignancy Electronically signed out by: CLOTILDE Rosas ??(ASCP) Processed and screened at [facility] CLINICAL HISTORY: Oral Control Pill, Papanicolaou Test Limitations: ??Cervical cytology is a scre ening test with limited sensitivity; regular screening is critical for cancer prevention; Pap tests are primarily effective for the diagnosis/prevention of squamous cell carcinoma, not adenoca rcinomas or other cancers. TESTING LAB LOCATION: [address] [address] COLLECTION SITE: Client: ??[facility] Location: [facility] (B) Specimen (Source) Anatomical Collection Method Collection Time Re ceived Time Location / / Volume Laterality Cytologic 09/28/2013 09/28/2013 3:28 material PM CDT (specimen) Irina Morin DIRECTOR BUSINESS DEVELOPMENT CHIEF LIFESTYLE OFFICER LAB - OPTIME CLINICAL SPECIM EN Performing Organization Address City/State/ZIP Code Phon e Number [facility] documented in this encounter Visit Diagnoses Diagnosis Vaginal pain - Primary Unspecified symptom associated with fema le genital organs Screen for STD (sexually transmitted dis ease) Screening examination for venereal disea se Screening for malignant neoplasm of the cervix Overweight (BMI 25.0-29.9) Overweight documented in this encounter Care Teams Shirt Marker Relationship Specialty Start Date End Date Irina Morin APRN PCP - General Nurse Practitioner - Family 02/22/21 [facility] [address] [place] [address] documented as of this encounter
--- OUTSIDE RECORDS SUMMARY | 2022-01-23 23:52 | XMS_ITS | Encounter Summary ---
:1985 Author Organization [facility] Address [address] [place] [address] Care Team Providers Name Role Phone Brandan Ferreira M.D. Primary Care Provider Encounter Details Date Type Department Care Team Description 10/16/2021 Nurse Triage Department of [facility] Shaji Farmer R.N. [facility], [place] [phone] (Work ) [facility], in [address] [phone] Social History Tobacco Use [...] or relatives? How often do you attend yarsanism or More than 4 times per year 05/31/2021 synagogue services? Do you belong to any clubs or Yes 05/31/2021 organizations such as yarsanism groups, unions, fraternal or athletic groups, or [...] place to sleep or slept in a fci (including now)? Education Answer Date Recorded What is the highest level of school Bachelor's degree (e.g., BA, AB, 03/21/2021 you have completed or the highest BS) degree you have received? Sex Assigned at Date Recorded Female 01/23/2021 7:15 AM CDT documented as of this encounter Miscellaneous Notes Telephone Encounter - Shaji Farmer R.N. - 10/16/2021 3:08 PM CDT Chief Complaint / Reason for Call Patient is a 36 y.o. female calling regarding No chief complaint on file.. Assessment Concern: Lower abdominal pain rated 7/10. Just received Pfizer COVID vaccine at 1130 am today. 3 hours later patient started experiencing abdominal pain. She denies fevers, chills, nausea, vomiting. She denies diarrhea, constipation, urinary concerns. If she moves pain is worse. Pain is worse when taking a deep breath. She also feels pain is in her back. Pain is worse on left side. Pain is constant. Present for: 1 hour Home cares tried: None Calling to request: an appointment The recommended disposition is See a health care provider within 4 hours. Discussed as it is later in the day if there are no appointments available can schedule an appointemnt for tomorrow. If symptoms worsen patient should go to Emergency department. Patient/caller verbalized understanding with no further questions. * Caller/Patient encouraged to call back with questions,concerns, or new/worsening symptoms at any time Also spoke to COVID provider of the day who recommends patient to be seen in clinic. If no explanation is found for abdominal pain this should be noted as adverse affect. In the process of waiting for pharmacy scheduler to answer to help schedule an appointment patient disconnected the phone. Left message on for patient to return call to schedule an appointment. COVID-19 Post Vaccine Symptoms Screening ASSESSMENT COVID Vaccine Symptom Screen Which vaccine did you receive?: Foap AB/Evodental COVID 19 Vaccine What date did you receive the vaccine?: 10/16/21 What number was your most recent COVID vaccine dose?: Second Dose How long after the vaccine did you start experiencing symptoms? : Within 4 hours Urgent Symptom Review Possible Anaphylaxis*: No Vasovagal symptoms*: No Shortness of breath : No Facial weakness and/or asymetry : No Seizure: No Difficulty moving arms and/or legs : No Severe headache, severe backache, neurological deficit, abdominal pain, leg pain, shortness of breath or unexpected bruising or petechia after receiving Cabrera [employer] Cabrera vaccine: Yes, symptoms within 72 hrs of vaccine. Provide recommendations based on symptoms. COVID-19 Infection Symptoms Do any of the following apply: fever, headache, muscle pain, chills, nausea and/or vomiting?: No Do any of the following apply: sore throat, cough, loss of taste or smell?: No Other Symptoms Do any of the following apply: injection site pain, redness or swelling, joint pain, or fatigue? : No Lymphadenopathy: No Diarrhea : No PLAN Endpoint Final Recommendations Recommendation : Provide self care instructions and recommendations if symptoms worsen. Care Points: Local injection site pain/swelling: Apply a cold pack or ice in a wet washcloth to the area for 20 minutes. Repeat in 1 hour. Then apply as needed for the first 48 hours after the injection. , For pain relief, take acetaminophen, ibuprofen, or naproxen. Use the lowest amount that makes your pain feel better. , To reduce discomfort from Fever; drink plenty of fluids and dress lightly, Side effects may feel like the flu and even affect your ability to do daily activities, but they should go away in a few days., Get extra rest if feeling fatigued., Lymph node swelling: Apply a warm, wet compress., With most COVID-19 vaccines, you will need 2 shots in order for them to work. Get the second shot even if you have side effects after the first shot, unless a vaccination provider or your doctor tells you not to get a second shot. , Call back if symptoms worsen. , If these symptoms do not resolve within 7 days, we recommend an appointment with your PCP. and If these symptoms are significant e nough that they prevent you from normal daily activities, such as eating, sleeping or going to work,contact your health care provider. Education: Patient/caregiver able to teach back Patient agreeable to plan of care: Yes The following references were used: Foap AB/Evodental Vaccine Information Statement: [email or web address] Reason for Disposition ? ? 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 PCP - General 09/27/21 12/18/[address] [place] [phone] documented as of this encounter
--- OUTSIDE RECORDS SUMMARY | 2022-01-23 23:52 | XMS_ITS | Encounter Summary ---
:1985 Author Organization [facility] Address [address] [place] [address] Care Team Providers Name Role Phone Stephania Morin APRN HOSPICE SUPERINTENDENT Primary Care Provider [phone] Encounter Details Date Type Department Care Team Description 12/04/2013 Virtual Visit [facility] up Clayton Lerma, [address] [place] [address] Vinicius Duong [place] [address] [place] [address] [address] [place] [address] [place] [address] [phone] Social History Tobacco Use Types Packs/Day Years Used Date Never Assessed Sex Assigned at Date Recorded Not on file documented as of this encounter Progress Notes Amy Lindo PA-C - 12/04/2013 1:54 PM CDT Date: 12-04-2013 01:54:39 Clinician: Amy Golden Clinician NPI: [id number] Patient: Noa Franco Patient : 1985 Patient Address: [address] [place] [address] Patient Phone: [phone] Clinic Name: [facility] Visit Protocol: Yeast Infection Patient Summary: Noa is a 28 year old ( : 1985 ) female who initiated a Zip for a presumed vaginal yeast infection. When asked the question Do you have a [facility] primary care physician?, Noa responded No. 0-5 days ago she began noticing perivulvar puritus and vaginal pruritus . She denies having fever, perivulvar rash, abdominal pain, and vaginal discharge or lesions. She has had one (1) occurrence in the past year and the current symptoms are similar to previous yeast infections. She is currently taking or has taken antibiotics in the past 2 weeks. She prefers a fluconazole (Diflucan) Pill. She denies and is not currently . She denies risk factors for sexually transmitted diseases. She does NOT smoke or use smokeless tobacco. CURRENT MEDICATIONS: No current medications ALLERGIES: NKDA Clinician Response: Dear Noa , Based on the information you have provided, you likely have a vaginal yeast infection which is a common infection of the vagina caused by a fungus. I am prescribing: Fluconazole (Diflucan) 150 mg pill to treat your yeast infection. Swallow one (1) tablet as a single dose. There are no refills with this prescription. While you have yeast infection symptoms, do the following: Avoid irritants such as scented bath products, tampons, pads, or vaginal sprays and powders.Avoid douching. Wear cotton underwear and if you are comfortable doing so, do not wear underwear to bed. Avoid hot tubs and whirlpool spas. Diagnosis: Lynda Vulvovaginitis Diagnosis ICD: 112.1 Additional Clinician Notes: Prescription: fluconazole( Diflucan) 150mg oral tablet 1 tablets, 1 days supply. Take one tablet by mouth one time a day for 1 day. Refills: 0, Refill as needed: no, Allow substitutions: yes documented in this encounter Plan of Treatment Not on filedocumented as of this encounter Visit Diagnoses Not on filedocumented in this encounter Care Teams Carrier Driver Relationship Specialty Start Date End Date Stephania Morin APRN PCP - General Nurse Practitioner - Family 02/22/[address] [address] documented as of this encounter
--- OUTSIDE RECORDS SUMMARY | 2022-01-23 23:52 | XMS_ITS | Encounter Summary ---
:1985 Author Organization [facility] Address [address] [place] [address] Care Team Providers Name Role Phone Therese Lock P.A.-C., P.A. Primary Care Provider Unavaila ble Reason for Visit Reason Comments Med Management Would like to go over medica tion list. Immunizations Would like to discuss COVID vaccine. Appointment Request (Routine) - Closed Specialty Diagnoses / Procedures Referred By Contact Refer red To Contact Family Medicine Referral ID Status Reason Start Date Expiration Date Visits Requ ested Visits Authorized [id number] Closed 09/11/2021 09/11/2022 1 1 Encounter Details Date Type Department Care Team Description 09/12/2021 Comprehensive Visit Department of [facility] Migra ine Headache (Primary Dx); Family Medicine [facility], Headache Un specified; [place] [facility], in [address] [address] [place], [place] [phone] (Work) [phone] Social History Tobacco Use Types Packs/Day Years [...] or relatives? How often do you attend pentecostalism or More than 4 times per year 05/31/2021 scientology services? Do you belong to any clubs or Yes 05/31/2021 organizations such as pentecostalism groups, unions, [employer] or athletic groups, or school groups? How [...] place to sleep or slept in a senior living (including now)? Education Answer Date Recorded What is the highest level of school Bachelor's degree (e.g., BA, AB, 03/21/2021 you have completed or the highest BS) degree you have received? Sex Assigned at Date Recorded Female 01/23/2021 7:15 AM CDT documented as of this encounter Last Filed Vital Signs Vital Sign Reading Time Taken Comments Blood Pressure 121/83 09/12/2021 11:33 AM CDT Pulse 72 09/12/2021 11:33 AM CDT Temperature 36.4 ??C (97.5 ??F) 09/12/2021 11:33 AM CDT Respiratory Rate - - Oxygen Saturation 99% 09/12/2021 11:33 AM CDT Inhaled Oxygen Concentration - - Weight 81.4 kg (179 lb 7.3 oz) 09/12/2021 11:33 AM CDT Height 162 cm (5' 3.78) 09/12/2021 11:33 AM CDT Body Mass Index 31.02 09/12/2021 11:33 AM CDT documented in this encounter Progress Notes Mer Hoang APRN, C.N.P., D.N.P. - 09/12/2021 11:30 AM CDT SUBJECTIVE CHIEF COMPLAINT/REASON FOR VISIT Noa Franco is a 36 y.o. female who presents for evaluation of Med Management (Would like to go over medication list. ) and Immunizations (Would like to discuss COVID vaccine. ). HISTORY OF PRESENT ILLNESS Noa Franco presents for medication follow up. She has been struggling since fall of last year with daily headaches and migraines. She has been working with an outside neurologist for resolution. She has finally had improvement in her headaches in the past month. She is currently on botox injections, verapamil and Vyepi infusions every 3 months. She is also taking Cymbalta 60mg daily. She has been having nausea throughout the day, without vomiting or pain. She takes the cymbalta in the morning on an empty stomach, and verapamil in the evening. She does not have any correlation to the type of food she eats and if she gets nausea. She does not have any symptoms of acid reflux. Bowel movements have been regular except for when she has to take her ondansetron which causes constipation. 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 She is looking for a job but she is unvaccinated against Covid-19. She has been hesitant to get the vaccine as she was afraid that she did not want her headaches coming back. OBJECTIVE PHYSICAL EXAMINATION Vital Signs: BP 121/83 (BP Location: Left arm, Patient Position: Sitting, Cuff Size: Regular) Pulse 72 Temp 36.4 ??C (Temporal) Ht 162 cm Wt 81.4 kg SpO2 99% BMI 31.02 kg/m?? Body mass index is 31.02 kg/m??. General: No acute distress. HEENT: Normocephalic. EOMI, PERRL, Canals patent, TMs normal. Oropharynx without lesion of mucosa. Neck: No nodes, no thyromegaly. No bruit auscultated. Heart: Regular rate and rhythm. No murmurs, gallops or rubs noted. Lungs: Non-labored breathing. Clear to auscultation bilaterally. No expiratory wheeze. Abdomen: Nontender to palpation. No hepato-splenomegaly. No mass. Normal bowel sounds in all 4 quadrants. Extremities: No ROBBI. No neurovascular compromise. No cyanosis, clubbing or edema. Skin: No atypical moles or skin changes. Neuro: Alert and oriented x3, nonfocal, moving all 4 extremities. CN II-XII grossly intact. Psych: Affect is appropriate. ASSESSMENT / PLAN 1. Migraine Headache 2. Headache Unspecified Continue to follow with outside neurologist. Recommend continuing on the verapamil at this time. 3. Anxiety She wants to continue on the Cymbalta as she has had improvement in her mood while on it. Did discuss that this is likely the culprit for her nausea. Recommend eating a meal 15-30 minutes prior to taking her dose of medicatin in the morning. Patient was instructed to follow up in primary care if symptoms are worsening or there is no improvement over the next several days. Plan was discussed with patient and is in agreement with plan. All questions were answered, side effects of any/all new medications were discussed. Patient left in no acute distress. Ready to learn. No apparent learning barriers were identified. Learning preferences include listening. Explained diagnosis and treatment plan. Patient/Child/Caregiver expressed understanding of the content. Mer Hoang APRN, Yeimi.N.P., D.N.P. Total time: 25 minutes documented in this encounter Plan of Treatment Not on filedocumented as of this encounter Visit Diagnoses Diagnosis Migraine Headache - Primary Headache Unspecified Anxiety documented in this encounter Additional Health Concerns Assessment Noted Time PHQ-9 Depression Total Score: 8 06/24/2021 3:34 PM MATH SPECIALIST documented as of this encounter Care Teams Software Support Specialist Relationship Specialty Start Date End Date Therese Lock P.A.-C., P.A. PCP - General Family Medicine 1 09/26/21 documented as of this encounter
--- OUTSIDE RECORDS SUMMARY | 2022-01-23 23:52 | XMS_ITS | Encounter Summary ---
:1985 Author Organization [facility] Address [address] [place] [address] Care Team Providers Name Role Phone Stephania Morin APRN PROFILING MACHINE SET UP OPERATOR TOOL Primary Care Provider Reason for Visit Reason Onset Date Comments Call Back 12/05/2013 Encounter Details Date Type Department Care Team Description 12/05/2013 Telephone [facility] Stephania Morin APRN Call Back [place] [facility] [address] [facility] [place] [address] [place] [phone] Social History Tobacco Use Types Packs/Day Years Used Date Never Smoker Smokeless Tobacco: Never Used Alcohol Use Standard Drinks/Week Comments Yes 0 (1 standard drink = 0.6 oz pure alcoho l) Sex Assigned at Date Recorded Not on file documented as of this encounter Miscellaneous Notes Telephone Encounter - Janay Chaudhry RN - 12/06/2013 9:05 AM CDT Patient called back and was notified of the message below. She will follow up as indicated. Ramirez, Clinical RN Yohana Godinez. Telephone Encounter - Stephania Morin NP - 12/05/2013 4:39 PM CDT Will give another course of Septra. If patient continues to be symptomatic, she'll need to be seen. Stephania Morin RN, PROFILING MACHINE SET UP OPERATOR TOOL Telephone Encounter - Felisha Mesa RN - 12/05/2013 3:29 PM CDT Patient called back stating she doesn't have money for an office visit so she is hoping a prescription could be done. Explained the request has been sent to Stephania Morin NP. Felisha Mesa RN Telephone Encounter - Janay Chaudhry RN - 12/05/2013 2:59 PM CDT Patient called back. Was treated for UTI. SX improved but still symptomatic. Sx include burning and pressure. No hematuria, flank pain, fever or chills. Onset was 6 days ago. She would like another round of abx if possible. Please advise. Ramirez, Clinical RN Yohana Godinez. Telephone Encounter - Nilam Min RN - 12/05/2013 2:31 PM CDT Left message on machine to call back with direct number and office hours. Nilam Min RN, [facility] Triage Telephone Encounter - Cindy Colon - 12/05/2013 9:49 AM CDT Patient called regarding (reason for call): call back Phone Number Pt can be reached at: Home number on file [phone] (home) Best Time: any Can we leave a detailed message on this number?: yes Please call pt regarding more antibiotics She was given BACTRIM 6 quantity 2 per day for 3 doses Through [facility] Thank you documented in this encounter Plan of Treatment Not on filedocumented as of this encounter Visit Diagnoses Diagnosis Dysuria - Primary documented in this encounter Care Teams Bowl Sander Relationship Specialty Start Date End Date Stephania Morin APRN PCP - General Nurse Practitioner - Family 02/22/21 [facility] [address] [place] [address] documented as of this encounter
--- OUTSIDE RECORDS SUMMARY | 2022-01-23 23:52 | XMS_ITS | Encounter Summary ---
:1985 Author Organization [facility] Address [address] [place] [address] Care Team Providers Name Role Phone Brandan Ferreira M.D. Primary Care Provider Reason for Visit Reason Comments Med Refill Encounter Details Date Type Department Care Team Description 10/08/2021 Refill Department of Family Medicine, Enriqueta Lock, Med Refill [facility], in [place], .[address] [phone] Social History Tobacco Use [...] or relatives? How often do you attend yazdanism or More than 4 times per year 05/31/2021 amish services? Do you belong to any clubs or Yes 05/31/2021 organizations such as yazdanism groups, unions, fraternal or athletic groups, or [...] this encounter Miscellaneous Notes Telephone Encounter - Marge Hester L.P.N. - 10/08/2021 1:44 PM CDT SUBJECTIVE CHIEF COMPLAINT / REASON FOR CALL Med Refill Information Discussed Contacted patient to verify if this is something she requested as the chart indicates it was discontinued 05/31/21. Patient states that she would like a refill and was given this medication to help with sleep when she has migraines that last a few days and she only takes them as needed. LV- 02/20/21 LF- 02/20/21 Order pended. PLAN Disposition/Recommendation: recommended continue engagement in self-management activities Information/Education: patient/caller able to teach back Caller agreeable to plan of care: yes The following references were used: nursing clinical judgement Telephone Encounter - Vane Morris - 10/08/2021 1:04 PM CDT Nurse review: Unable to forward request to provider; Discrepancy: Verification Required. Medication Discontinued. Primary Provider: Brandan Ferreira M.D. Requested Prescriptions Pending Prescriptions Disp Refills ??? hydrOXYzine (ATARAX) 25 mg tablet [Pharmacy Med Name: HYDROXYZINE HCL 25MG TABS] 30 tablet 0 Sig: TAKE 1 TABLET (25 MG) BY MOUTH EVERY 6 HOURS NEEDED FOR ANXIETY Pharmacy (include location):Family Anival Alas documented in this encounter Plan of Treatment Not on filedocumented as of this encounter Visit Diagnoses Not on filedocumented in this encounter Additional Health Concerns Assessment Noted Time PHQ-9 Depression Total Score: 8 06/24/2021 3:34 PM ASSOCIATE GENETICS PROFESSOR documented as of this encounter Care Teams Second Class Welder Relationship Specialty Start Date End Date Brandan Ferreira M.D. PCP - General 09/27/21 12/18/[address] [place] [address] HIEN Simpson [phone] documented as of this encounter
--- OUTSIDE RECORDS SUMMARY | 2022-01-23 23:52 | XMS_ITS | Encounter Summary ---
:1985 Author Organization [facility] Address [address] [place] [id number] Care Team Providers Name Role Phone Stephania Morin APRN PRINCIPAL JAVA DEVELOPER Primary Care Provider [phone] Reason for Visit Reason Comments Flank Pain Auth/Cert Specialty Diagnoses / Procedures Referred By Contact Refer red To Contact customer service trainer Diagnoses Pyelonephritis affecting in third trimester [facility] [address] [place], [place] [address] Phone: Fax: Referral ID Status Reason Start Date Expiration Date Visits Requ ested Visits Authorized [id number] 1 1 Encounter Details Date Type Department Care Team Description 04/09/2019 - [facility] Omar Galaviz MD [facility] [address] [place] [address] Kidney stone (Primary Dx); 04/11/2019 Encounter [facility] Renata Garvey MD [facility] [address] [place], [place] [id number] Pyelonephritis affecting in th ird trimester [address] [place] [address] Social History Tobacco Use Types Packs/Day Years Used Date Never Smoker Smokeless Tobacco: Never Used Alcohol Use Standard Drinks/Week Comments Yes 0 (1 standard drink = 0.6 oz pure alcoho l) Sex Assigned at Date Recorded Not on file documented as of this encounter Last Filed Vital Signs Vital Sign Reading Time Taken Comments Blood Pressure 103/64 04/11/2019 7:52 AM LAUNDRY FOLDER Pulse 87 04/11/2019 7:52 AM LAUNDRY FOLDER Temperature 36.7 ??C (98.1 ??F) 04/11/2019 7:52 AM LAUNDRY FOLDER Respiratory Rate 16 04/11/2019 7:52 AM LAUNDRY FOLDER Oxygen Saturation 98% 04/09/2019 4:24 PM LAUNDRY FOLDER Inhaled Oxygen Concentration - - Weight - - Height - - Body Mass Index - - documented in this encounter Discharge Summaries Radha Garvin MD - 04/11/2019 8:12 AM CST OB Inpatient Progress Note S: Patient states pain still waxing and waning. Rates it a 6 currently but she is sitting in bed talking with me without signs of discomfort or restlessness. Baby is moving. No regular contractions. Voiding. Feels discomfort is lower and more anterior today. O: Vitals: 04/10/19 0731 04/10/19 1524 04/10/19 2336 04/11/19 0752 BP: 105/66 97/66 97/54 103/64 BP Location: Left arm Pulse: 87 Resp: Temp: 98.5 ??F (36.9 ??C) 97.9 ??F (36.6 ??C) 98.9 ??F (37.2 ??C) 98.1 ??F (36.7 ??C) TempSrc: Oral Oral Oral Oral SpO2: Gen: sitting comfortably in bed Abdomen: soft Uterus nontender Left flank pain. A: 33 year old at 26 1/7 weeks Probable renal stone No evidence for pyelonephritis P: Will discharge home Stop taking TUMs or any additional calcium Had an extended discussion regarding renal stones ( natural course, expectations for passing, warning signs on when to call or be seen) She will follow up this week with her primary OB who is through [facility]. Discussed risks of prolonged narcotic use - try to minimize use. Explained we want her comfortable but pain will not be absent until passed. MD Gretchen Oakley WAISTLINE JOINER 04/11/2019 8:12 AM DRY FOLDER documented in this encounter Discharge Instructions Discharge InstructionsVesna Neumann RN - 04/11/2019 10:04 AM CST Images from the original note were not included. Make an appointment with your primary care provider and return to clinic Thursday for follow up. Understanding Hydronephrosis?? Hydronephrosis is when your kidneys fill with too much urine and swell up. It???s cause by a problemin the urinary tract that stops urine from draining normally. ?? How to say it [id number] How hydronephrosis happens?? Urine usually flows from the kidneys down through the ureters, bladder, and out of the body through the urethra. Hydronephrosis occurs when something blocks this flow of urine.?? What causes hydronephrosis??? The condition has many possible causes. They include: ?? Narrowing (stricture) in a tube that drains urine (ureter or urethra) ?? Kidney stone ?? Blood clot ?? Enlarged prostate ?? Cancer growth ?? Infection ? Fibroids in the uterus ?? Injury?? Symptoms of hydronephrosis?? Symptoms may include: ?? Pain in your side and back ?? Pain when urinating ?? Nausea and vomiting ?? Small amount of urine or no urine ?? Urinating often or feeling the urge to urinate often ?? Urinary incontinence ?? Blood in urine ?? Fever?? Symptoms will depend on the cause of the blockage and how serious it is.?? Diagnosing hydronephrosis?? Your healthcare provider will ask about your symptoms and health history. He or she will give you a physical exam. The physical exam may include a rectal exam or a pelvic exam. You may also have tests such as: ?? Blood tests. These are done to see how well your kidneys are filtering the blood. ?? Urine test. This is done to look for infections and other problems.? Imaging test. You may have an ultrasound, MRI, or CT scan. These tests make images of your organsand other tissues. They can show blockages, growths, and other problems. ?? Other imaging tests. You may also have a cystourethrogram, ureterogram, or renogram. These tests create special detailed images of the bladder, ureters, and kidneys.?? Treatment for hydronephrosis?? Treatment depends on what is causing the problem. Your healthcare providers will need to drain the urine, and treat the cause. You may also see a urologist, bobbin stripper, or oncologist for treatment.?? Treatment may include: ?? Tube to drain urine. A thin, flexible tube (catheter) may be put into your urethra or through a small cut in the abdomen, and up into the kidney. A small tube (stent) may be put in near the kidney to keep the urine draining. Or a tube may be put through a cut in the skin directly into your kidney. ?? Surgery. You may need surgery to fix something blocking urine, such as a growth or stricture.?? You may also be treated with: ?? Medicines to treat pain, nausea, and vomiting ?? Antibiotics to treat an infection?? Possible complications of hydronephrosis?? In some cases, hydronephrosis may cause long-term (permanent) kidney damage.? When to call your healthcare provider?? Call your healthcare provider if you have any of the following: ?? Fever of 100.4??F (38??C) or higher, or as directed by your healthcare provider ?? Pain that gets worse ?? Symptoms that don???t get better, or get worse ?? New symptoms Date Last Reviewed: 03/27/2017 ?? [id number] [employer]. [address] [place] [address]. All rights reserved. This information is not intended as a substitute for professional medical care. Always follow your healthcare professional's instructions. DRY FOLDER documented in this encounter Medications at Time [...] Kidney stone documented as of this encounter Progress Notes Lala Cochran MD - 04/10/2019 7:12 PM CST Late entry note. Discussed with RN. Urine culture is negative. Most likely pt is passing a stone. Left hydronephrosis on ultrasound. Pain control will be the mainstay management at this point. Plan to discharge pt home tomorrow on PO pain killers. Dr. Liza Cochran [phone] DRY FOLDER Lala Cochran MD - 04/10/2019 7:37 AM CST AUTOMOTIVE TECHNICIAN PROGRESS NOTE Pt doing moderately well. Pain has been controlled only with IV dilaudid that she requests almost every 30 min per RN report. Pt states that there is no position in particular that makes her pain better or worse. Predominantly at her Lt flank. She is also complaining of sensation of not fully emptyingher bladder and frequency. She has remained afebrile since yesterday. Pt also complaining of having been told that she had water in her left ear she has mild decrease of hearing. Wonders if this is worsened by IVF. I reassured pt that is not the case. She was told it would drain on its own. Vitals: 04/09/19 2127 04/10/19 0205 04/10/19 0504 04/10/19 0731 BP: 105/69 112/67 105/66 Pulse: Resp: 18 Temp: 98.3 ??F (36.8 ??C) 98.1 ??F (36.7 ??C) 98.3 ??F (36.8 ??C) 98.5 ??F (36.9 ??C) TempSrc: Oral Oral Oral Oral SpO2: General A&O x 3, cooperative CVS RRR, no MRG Respiratory CTAB, no WCR Abdomen soft, NTGR, gravid, no uterine irritability Genitorunary deferred Extremities no CT, pulses + A/P 33 year old HD#1 here with pylenonephritis - on Rocephin 1 g Q 24 hrs - pain control with dilaudid and fentanyl. Which I counseled pt should be used only when extremely necessary. Will wean her from using dilaudid only. - Oxycodone 5-10 mg q 4 hrs for breakthrough pain - Tylenol and ibuprofen (alternating every 3 hours) - Atarax as an adjuvant for pain control 25 mg q 6 hrs - GI ppx - tums - bowel ppx - senna-docusate PRN -DVT prophylaxis with SCDs -Diet - regular -Encourage incentive spirometry -Encourage ambulation Plan; goal for pt to be discharge home tomorrow on oral medications. She is tolerating PO adequatelyand OB li she is stable. Pt aware. Dr. Liza Cochran [phone] DRY FOLDER documented in this encounter H&P Notes Renata Garvey MD - 04/09/2019 6:27 PM CST Labor & Delivery History & Physical Patient Name: Noa Franco Age: [age] year old Date of : 1985 Subjective: Noa Franco is a 33 year old at 25+6 wga who presented to ED for back and abdominal painin setting of known UTI. She is a patient of [facility]. Her symptoms started on 04/03; she was having some urinary urgency. She was then seen on 04/06 for symptoms of frequency but decreased output. She was started on macrobid on 04/08. Today, she started to have extreme back pain, chills, and n/v. She presented to ED for these symptoms and was started on ceftriaxone for pyelo. She reports LOF x1 earlier today. Denies any overt contractions or VB. +FM. care with [facility] care complicated by: - progesterone therapy early in , resulting in suicidal thoughts Issues: none Problem List No episode was linked to this visit. OB History No obstetric history on file. No past medical history on file. No past surgical history on file. Social History Tobacco Use ??? Smoking status: Never Smoker ??? Smokeless tobacco: Never Used Substance Use Topics ??? Alcohol use: Yes ??? Drug use: No History Drug Use No No family history on file. @ALGSIMPLE@ Medications Prior to Admission Medication Sig Dispense Refill Last Dose ??? LORazepam (ATIVAN) 0.5 MG tablet Take 0.5 mg by mouth every 6 hours as needed for anxiety Past Month at Unknown time ??? nitroFURantoin macrocrystal-monohydrate (MACROBID) 100 MG capsule Take 100 mg by mouth 2 times daily 10 day course, started yesterday 04/09/2019 at Unknown time ??? oxyCODONE (ROXICODONE) 5 MG tablet Take 5 mg by mouth every 4 hours as needed for severe pain 04/09/2019 at 1030 ??? Vit-Fe Fumarate-FA ( MULTIVITAMIN W/IRON) 27-0.8 MG tablet Take 1 tablet by mouth daily 04/09/2019 at Unknown time Most Recent Immunizations Administered Date(s) Administered ? ? DTAP (<7y) 01/17/1999 ??? Hib (PRP-T) 05/06/1989 ??? Influenza (IIV3) PF 01/27/2012 ??? MMR 11/24/1988 ??? Poliovirus, inactivated (IPV) 10/24/1998 ??? Tdap (Adacel,Boostrix) 11/25/2010 ??? Varicella 09/10/2010 Review of Systems - NEGATIVE FOR Fevers Chills Headache Visual changes Ear pain Sore throat Cough Shortness of breath Chest pain Palpitations Constipation Diarrhea Vomiting Bloody stools Hematuria Dysuria Muscle weakness Gait disturbance Objective: 04/09/19 1820 -- -- -- -- -- -- -- -- -- 9 -- EL 04/09/19 1725 -- -- -- -- -- 18 -- -- None (Room air) -- -- ML 04/09/19 1724 -- -- -- -- -- -- -- -- -- 9 -- ML 04/09/19 1624 -- -- -- 85 bpm -- -- 98 % -- -- 8 -- ML 04/09/19 1540 -- -- -- -- -- -- -- -- -- 10 -- ML 04/09/19 1523 -- 81 -- 86 bpm 114/74 -- 100 % -- -- -- -- ML 04/09/19 1352 98.4 ??F (36.9 ??C) -- 101 -- 128/87 22 100 % -- None (Room air) 10 -- TE General: General appearance: nad. Lungs: unlabored back +cvat on left side abd Soft, gravid, nontender fundus [place]: Contraction Frequency (min): infrequent Contraction Duration (sec): FHT: Baseline 130 BPM heart variability:moderate heart rate accelerations: Present 10 x 10 heart rate decelerations: none heart rate interpretation: Category I Cervix: Dilation: closed Effacement: thick Station: high Extremities: Trace to 1+ edema bilateral, symmetric edema; neg Jeevan's sign rom plus collected Lab Review: Hemoglobin Date Value Ref Range Status 04/09/2019 12.7 11.7 - 15.7 g/dL Final Hematocrit Date Value Ref Range Status 04/09/2019 37.7 35.0 - 47.0 % Final Assessment Noa Franco is a 33 year old at 25+6 wga with pyelo Plan - Pyelo: cont ceftriaxone IV q daily. Urine culture pending. Supportive care with zofran, tylenol, pain meds. US to rule out stones. Straight cath to assess for retention. - gestation: no concern for PTL. dopplers q shift - dispo: cont inpatient care DRY FOLDER documented in this encounter ED Notes Marisol Leahy - 04/09/2019 3:59 PM CST Bladder scanned because she felt like she couldn't urinate. About 80ml. RN present. DRY FOLDER Carlos Fry RN - 04/09/2019 3:44 PM CST [facility] ED Nurse Handoff Report Noa Franco is a 33 year old female ED Chief complaint: Flank Pain . ED Diagnosis: Final diagnoses: None Allergies: Allergies Allergen Reactions ??? Suture disolvable ??? Clindamycin Muscle Pain (Myalgia) ??? Glycolic Acid Other (See Comments) Reaction to vicryl suture with suture granuloma formation. ??? Lactic Acid Rash ??? Monistat [Miconazole] Rash Code Status: Full Code Activity level - Baseline/Home: Independent. Activity Level - Current: Stand by Assist. Lift room needed: No. Bariatric: No Wax Bleacher Needed: No Isolation: No. Infection: Not Applicable. Vital Signs: Vitals: 04/09/19 1352 04/09/19 1523 BP: 128/87 114/74 Pulse: 81 Resp: 22 Temp: 98.4 ??F (36.9 ??C) TempSrc: Oral SpO2: 100% 100% Cardiac Rhythm: , Pain level: 0-10 Pain Scale: 10(Pt states pain remains unchanged. Pt appears more comfortable. States she is feeling increased nausea at this time.) Patient confused: No. Patient Falls Risk: Yes. Elimination Status: Has voided Patient Report - Initial Complaint: Flank Pain. Focused Assessment: Left sided flank pain radiating to the groin. Significant pain with left side percussion Tests Performed: Labs Ordered and Resulted from Time of ED Arrival Up to the Time of Departure from the ED CBC WITH PLATELETS DIFFERENTIAL - Abnormal; Notable for the following components: Result Value WBC 11.6 (*) Absolute Neutrophil 8.8 (*) All other components within normal limits COMPREHENSIVE METABOLIC PANEL - Abnormal; Notable for the following components: Potassium 3.3 (*) Creatinine 0.51 (*) All other components within normal limits ROUTINE UA WITH MICROSCOPIC - Abnormal; Notable for the following components: Ketones Urine 60 (*) Protein Albumin Urine 30 (*) Leukocyte Esterase Urine Trace (*) WBC Urine 10 (*) RBC Urine 12 (*) Bacteria Urine Few (*) Yeast Urine Few (*) Squamous Epithelial /HPF Urine 29 (*) Mucous Urine Present (*) Amorphous Crystals Few (*) All other components within normal limits LACTIC ACID WHOLE BLOOD ROUTINE UA WITH MICROSCOPIC DRUG ABUSE SCRN 7 UR (/) (RH, SH, UR) PERIPHERAL IV CATHETER PULSE OXIMETRY NURSING INTAKE AND OUTPUT VITAL SIGNS ASSESS TEMPERATURE NOTIFY PHYSICIAN AND UTERINE MONITORING ABO/RH TYPE AND SCREEN BLOOD CULTURE BLOOD CULTURE URINE CULTURE AEROBIC BACTERIAL No orders to display Treatments provided: See MAR Family Comments: SO at bedside OBS brochure/video discussed/provided to patient: N/A ED Medications: Medications 0.9% sodium chloride BOLUS (1,000 mLs Intravenous New Bag 04/09/19 1443) Followed by 0.9% sodium chloride BOLUS (has no administration in time range) Followed by sodium chloride 0.9% infusion (has no administration in time range) ondansetron (ZOFRAN) injection 4 mg (4 mg Intravenous Given 04/09/19 1443) HYDROmorphone (PF) (DILAUDID) injection 0.5 mg (has no administration in time range) ondansetron (ZOFRAN) injection 4 mg (has no administration in time range) senna-docusate (SENOKOT-S/PERICOLACE) 8.6-50 MG per tablet 1 tablet (has no administration in time range) Or senna-docusate (SENOKOT-S/PERICOLACE) 8.6-50 MG per tablet 2 tablet (has no administration in time range) No Tdap Needed - Assessment: Patient does not need Tdap vaccine (has no administration in time range) cefTRIAXone (ROCEPHIN) 1 g vial to attach to NS 100 mL bag for ADULTS or NS 50 mL bag for PEDS (has no administration in time range) HYDROmorphone (PF) (DILAUDID) injection 0.5 mg (0.5 mg Intravenous Given 04/09/19 152) cefTRIAXone (ROCEPHIN) 1 g vial to attach to NS 100 mL bag for ADULTS or NS 50 mL bag for PEDS (0 g Intravenous Stopped 04/09/19 152) Drips infusing: Yes For the majority of the shift, the patient's behavior Green. Interventions performed were Monitor. Severe Sepsis OR Septic Shock Diagnosis Present: No ED Nurse Name/Phone Number: Carlos Fry RN, 3:44 PM DRY FOLDER Farhan Tabares, LYLE - 04/09/2019 1:51 PM CST A&O x4, ABCs intact. Pt presents with left sided flank pain, diarrhea, N/V. Pt states L&D diagnosed her with bladder infection yesterday with fluid building around her kidney. Pt is on oxycodone, but it's not helping. Pt is 27wks . DRY FOLDER Omar Galaviz MD - 04/09/2019 1:48 PM CST History Chief Complaint: Flank Pain HPI Noa Franco is a 33 year old female currently 27 weeks gravid who presents to the emergency department today for evaluation of flank pain. The patient reports five days prior she developed crampingand thought she was leaking some amniotic fluid. She says she later developed left sided flank pain,diarrhea. Yesterday she saw her customer service trainer where she was diagnosed with a UTI with fluid around her kidney on ultrasound, and was started on 100 mg Macrobid 2x and oxycodone. She reports today she developed worsening back pain, and for the past hour has had episodes of vomiting. Due to these worsening symptoms she presented to the emergency department today. Her WAISTLINE JOINER is Domonique Watkins at [facility]. Allergies: Suture Clindamycin Glycolic Acid Lactic Acid Monistat [Miconazole] Medications: Prometrium Iesahtvl-Yx-Jff-[id number]-FA Ativan Pyridium Past Medical History: Anxiety Migraine Headache Past Surgical History: Cholecystectomy [place] teeth Family History: Diabetes Social History: The patient was accompanied to the ED by significant other. Smoking Status: Never Smoker Smokeless Tobacco: Never used Alcohol Use: Yes Marital Status: Single [1] Review of Systems Gastrointestinal: Positive for diarrhea, nausea and vomiting. Genitourinary: Positive for flank pain (left). Musculoskeletal: Positive for back pain (left). All other systems reviewed and are negative. Physical Exam First Vitals: BP: 128/87 Pulse: 81 Heart Rate: 101 Temp: 98.4 ??F (36.9 ??C) Resp: 22 SpO2: 100 % Physical Exam GEN: alert, writhing uncomfortably HEAD: atraumatic EYES: pupils reactive, extraocular muscles intact, conjunctivae normal ENT: TMs normal as are EACs; nares patent; normal posterior pharynx and oral mucosa NECK: Exquisite left CVA tenderness, no posterior midline tenderness, no meningeal signs, trachea midline RESPIRATORY: no tachypnea, breath sounds clear to auscultation CVS: normal S1/S2, no murmurs/rubs/gallops ABDOMEN: soft, nontender, no masses or organomegaly, no rebound, positive bowel sounds MUSCULOSKELETAL: no deformities SKIN: warm and dry, no acute rashes or ulceration, no erythema NEURO: GCS 15, cranial nerves intact. Motor and sensory- good tone; normal gait and coordination LYMPH: no lymphadenopathy Emergency Department Course Laboratory: Laboratory findings were communicated with the patient who voiced understanding of the findings. CBC: WBC 11.6 (H), HGB 12.7, PLT 344 CMP: Potassium 3.3 (L), Creatinine 0.51 (L) o/w WNL. Lactic Acid: 1.2 Drug screen Urine /[place]: Opiates Qualitative Urine Positive 1) UA: Yellow and Slightly Cloudy. Urineketon 60, Protein Albumin Urine 30, Leukocyte Esterase Urine, WBC/HPF 10 (H), RBC/HPF 12 (H), Bacteria Few, Yeast Urine Few, Squamous Epithelial/HPF Urine 29 (H), Mucous Urine, Amorphous Crystals o/w WNL 2) UA: Yellow and Slightly Cloudy. Urineketon >150, Protein Albumin Urine 30, Squamous Epithelial/HPF Urine 9 (H), Mucous Urine Present o/w WNL Urine Culture Aerobic Bacterial: Pending Blood cultures: Pending Interventions: 1443 NS Bolus 1,000mL IV 1443 Zofran 4mg IV 1521 Hydromorphone 0.5 mg IV 1521 Rocephin IV Emergency Department Course: Nursing notes and vitals reviewed. 1435: I performed an exam of the patient as documented above. IV was inserted and blood was drawn for laboratory testing, results above. The patient provided a urine sample here in the emergency department. This was sent for laboratory testing, findings above. [address] Garvey of the WAISTLINE JOINER service regarding patient's presentation, findings, and plan of care. Findings and plan explained to the Patient who consents to admission. Discussed the patient with , who will admit the patient to a bed for further monitoring, evaluation, and treatment. I personally reviewed the laboratory results with the Patient and answered all related questions prior to discharge. Impression & Plan Medical Decision Making: Noa Franco is a 33 year old female who is in her third trimester of who presents withUTI and now pyelonephritis, and severe left CVA pain. Her urine from clinic yesterday showed only nitrites. She provided very minimal specimen here which was very contaminated, and we're waiting on a second specimen. She has slightly elevated white count with a left shift. Blood cultures were done. She had a renal ultrasound done yesterday that showed no giorgio obstruction, but showed some left hydronephrosis. I felt the adverse effects of radiation in this patient far outweighed the incremental reassurance of a non-obstructed CT scan. The patient did respond to dilaudid here as well, and she looked visibly more comfortable but said she was still having pain. I spoke with Dr. Garvey the web content producer WAISTLINE JOINER as this patient is an [facility] patient, and was told to come here after calling her OB clinic. Blood cultures have been done, and was given Rocephin 1 g IV. She is being admitted. She is currently hemodynamically stable, and appears more comfortable. Diagnosis: No diagnosis found. Disposition: Admitted under the supervision of Dr. Garvey Scribe Disclosure: I, Marisela Pryor, am serving as a scribe at 2:25 PM on 04/09/2019 to document services personally performed by Omar Galaviz MD based on my observations and the provider's statements to me. Marisela Pryor 04/09/2019 [facility] EMERGENCY DEPARTMENT Omar Galaviz MD 04/10/19 1926 DRY FOLDER documented in this encounter Miscellaneous Notes Provider Notification - Vesna Neumann RN - 04/11/2019 9:58 AM CST 04/11/19 0937 Provider Notification Provider Name/Title Dr Garvin Method of Notification In Department Request Evaluate-Remote Notification Reason Other Updated Dr Garvin patient asked about the status of the ENT consult she thought she was having today and should she continue the pyridium after discharge. Patient to follow up with them outpatient for the ear pain and patient may discontinue the pyridium. DRY FOLDER Plan of Care - Vesna Neumann RN - 04/11/2019 9:48 AM CST VSS, voiding without difficulty. Output has been adequate. Rating pain a 6 on the pain scale. Utilizing tylenol, oxycodone, and heat for pain interventions. Patient stated she is feeling baby movement today. Discharged to home today at 1035 with all patient belongings. AVS read to patient. All questions and concerns addressed. DRY FOLDER Plan of Care - Ya Chavis RN - 04/11/2019 6:12 AM CST VSS, afebrile. Up independently. Pt c/o constant Lt flank pain overnight rated 6-8/10, PRN Tylenol, oxycodone, and atarax given. Pt concerned about constant pain and requested that she have the pain medication when it is available. Pt also expressed concern about going home today because she is still having pain. Voiding good amounts, pt mentioned that it felt like her bladder wasn't emptying all theway and felt full, reassured pt with a bladder scan that had a PVR of 4ml. BS audible/active x4, tolerating PO, denies N/V. Pt also requesting a Urology consult for today. Will continue to monitor and provide supportive cares. DRY FOLDER Plan of Care - Ya Chavis RN - 04/11/2019 12:07 AM CST Pt c/o her bladder feeling full or that it is not emptying all the way when she voids. Pt voiding good amounts of urine. Offered to bladder scan patient. Pt voided 150 and PVR was 4ml. Will continue tomonitor and provide supportive cares. DRY FOLDER Plan of Care - Teresa Kate RN - 04/10/2019 6:44 PM CST Patient would like to have a urology consultation to determine the reason for the continued pain. Patient continues to state pain 7/10, able to eat, drink and ambulate but feels as though she will be returning to an ER for a 4th time if she is to discharge home on Thursday. DRY FOLDER Plan of Care - Teresa Kate RN - 04/10/2019 5:29 PM CST Patient updated regarding the POC to discharge continuous IVF, saline lock IV and discontinue IV medications including antibiotics. Patient updated regarding negative UC. Patient's questions answered. DRY FOLDER Plan of Care - Teresa Kate RN - 04/10/2019 5:[address] Cochran sent text page regarding patient's wishes to rotate IV placement if planning to continue IVF. DRY FOLDER Plan of Care - Solange Mas RN - 04/10/2019 2:01 PM CST Pt receiving IV Rocephin, IV fluids, and pain medication. Pt requiring frequent doses of IV Fentanylover night and this AM with little improvement in discomfort. L flank pain 7-910. Pt also has intermittent nausea with no emesis. Per Dr. Cochran, plan to try oral pain medications today (Oxycodone and Atarax) as well as Pyridium. ENT consult per pt request for L ear pain. Plan to keep overnight again with hopeful discharge tomorrow. DRY FOLDER Provider Notification - Solange Mas RN - 04/10/2019 10:55 AM CST 04/10/19 1055 Provider Notification Provider Name/Title Dr. Berger Method of Notification Phone Updated Dr. Berger on ENT consult request from Dr. Cochran. 33 yo, at 26w0d gestation who is beingtreated for L pyelonephrosis and is receiving IV Rocephin and pain medication. Pt also complains of L sided ear pain, swishing and inability to hear out of her L ear. Pt requests to be seen by ENT while she is in the hospital. states I won't see an ear pain pt inpatient--it is like consulting neurology on a pt who has a headache. If she is still in the hospital tomorrow morning someone will see her, if not, we would be happy to see her in clinic or you could have a hospitalist look at her ear as well. POC reviewed withpt who is agreeable to plan. DRY FOLDER Provider Notification - Solange Mas RN - 04/10/2019 8:30 AM CST 04/10/19826 Provider Notification Provider Name/Title Dr. Cochran Method of Notification In Department Updated Dr. Cochran in department that pt is requiring IV Fentanyl every 1-1.5 hours for 8-9/10 L sided flank pain. Pt has frequent questions and requests. states she will round and see pt to discuss POC. DRY FOLDER Plan of Care - Therese Ortiz RN - 04/10/2019 5:29 AM CST Afebrile. Continues to c/o left flank pain, 7-10. Patient says the pain is near constant and wakesher up from sleeping often. She reports that taking 100 mcg of fentanyl every 2 hours takes the tipof the pain away but she cannot go any longer between doses. Patient also c/o heartburn unrelieved by tums. Added bicitra and prilosec with some improvement. Patient has not vomited on this shift but does dry heave. Zofran given. UO is starting to increase tonight. Patient is tolerating PO fluids andNS at 125 ml/hr. SO at bedside, supportive. Patient does seem anxious and asking many questions and concerned about when she will discharge and what the plan of care will be. DRY FOLDER Provider Notification - Therese Ortiz RN - 04/10/2019 1:27 AM CST 04/10/19 0126 Provider Notification Provider Name/Title Dr. Garvey Method of Notification In Department Notification Reason Vital Signs Change Vital signs q8h. DRY FOLDER Provider Notification - Therese Ortiz RN - 04/10/2019 12:53 AM CST 04/10/19 0053 Provider Notification Provider Name/Title Dr. Garvey Method of Notification Phone Request Evaluate-Remote Notification Reason Medication Request Request medication for heartburn since tums is not helping. Orders received for bicitra. DRY FOLDER Plan of Care - Becca Barnhart RN - 04/09/2019 7:04 PM CST Pt transferred to PP unit room 446 from ED for treatment of plausible pyelonephritis at 1745. Pt haspain of 01/04, goals for medication pain management. IV fluids started. Pt voiding in small amounts; Scx1 per MD for 25ml - clear vera urine. Pt experiencing nausea r/t pain medications - zofran ordered. Pt given peppermint and lavender aromatherapy for treatment of pain/nausea. Pt given heat packs toflank pain. Pt to ultrasound for renal US; awaiting results. NST completed by L&D RNShannanRoutine cares for pain/comfort management. Will continue to monitor and adjust plan of care accordingly. DRY FOLDER Pharmacy-Admission Medication History - Claire Dumont, [facility] - 04/09/2019 5:39 PM CST .Admission medication history interview status for this patient is complete. See [facility] admission navigator for allergy information, prior to admission medications and immunization status. Medication history interview source(s):Patient Medication history resources (including written lists, pill bottles, clinic record):None Primary pharmacy:[facility] Changes made to [facility] medication list: Added: mvi, ativan, macrobid, oxycodone Deleted: none Changed: none Actions taken by pharmacist (provider contacted, etc):None Additional medication history information:None Medication reconciliation/reorder completed by provider prior to medication history? No Do you take OTC medications (eg tylenol, ibuprofen, fish oil, eye/ear drops, etc)? No Prior to Admission medications Medication Sig Last Dose Taking? Auth Provider LORazepam (ATIVAN) 0.5 MG tablet Take 0.5 mg by mouth every 6 hours as needed for anxiety Past Monthat Unknown time Yes Unknown, Entered By History nitroFURantoin macrocrystal-monohydrate (MACROBID) 100 MG capsule Take 100 mg by mouth 2 times daily10 day course, started yesterday 04/09/2019 at Unknown time Yes Unknown, Entered By History oxyCODONE (ROXICODONE) 5 MG tablet Take 5 mg by mouth every 4 hours as needed for severe pain 04/09/2019 at 1030 Yes Unknown, Entered By History Vit-Fe Fumarate-FA ( MULTIVITAMIN W/IRON) 27-0.8 MG tablet Take 1 tablet by mouth daily 04/09/2019 at Unknown time Yes Unknown, Entered By History DRY FOLDER documented in this encounter Plan of Treatment Not on filedocumented as of this encounter Procedures Procedure Name Priority Date/Time Associated Diagnosis Comme nts US RENAL COMPLETE STAT 04/09/2019 7:17 Results for this PM LAUNDRY FOLDER procedure are i n the results section. RUPTURE OF STAT 04/09/2019 6:10 Results for this [facility] BY [facility] PL[facility] PM LAUNDRY FOLDER proced ure are in the results section. ABO/RH TYPE AND Routine 04/09/2019 5:04 Results f or this SCREEN PM LAUNDRY FOLDER procedure are i n the results section. ROUTINE UA WITH STAT 04/09/2019 3:53 Results f or this MICROSCOPIC PM LAUNDRY FOLDER procedure are i n the results section. OPIATES QUANTITATIVE Routine 04/09/2019 3:53 Kidney stone Resu lts for this URINE PM LAUNDRY FOLDER procedure are i n the results section. DRUG ABUSE SCRN 7 UR Routine 04/09/2019 3:53 Kidney stone Resu lts for this (/) PM LAUNDRY FOLDER procedur e are in (RH, SH, UR) the results section. URINE CULTURE Routine 04/09/2019 3:53 Pyelonephritis Results f or this PM LAUNDRY FOLDER affecting in proce dur are in third trimester the results section. BLOOD CULTURE STAT 04/09/2019 3:18 Pyelonephritis Results f or this PM LAUNDRY FOLDER affecting in proce dure are in third trimester the results section. BLOOD CULTURE STAT 04/09/2019 3:12 Pyelonephritis Results f or this PM LAUNDRY FOLDER affecting in [facility] are in third trimester the results section. ROUTINE UA WITH STAT 04/09/2019 2:44 Results f or this MICROSCOPIC PM LAUNDRY FOLDER procedure are i n the results section. LACTIC ACID WHOLE STAT 04/09/2019 2:17 Results for this BLOOD PM LAUNDRY FOLDER procedure are i n the results section. CBC WITH PLATELETS & STAT 04/09/2019 2:16 Resu lts for this DIFFERENTIAL PM LAUNDRY FOLDER procedure are i n the results section. COMPREHENSIVE STAT 04/09/2019 2:16 Results for this METABOLIC PANEL PM LAUNDRY FOLDER procedure ar e in the results section. documented in this encounter Results US Renal Complete (04/09/2019 7:17 PM LAUNDRY FOLDER) Anatomical Region Laterality Modality Abdomen/Pelvis Ultrasound Specimen (Source) Anatomical Collection Method Collection Time Re ceived Time Location / / Volume Laterality 04/09/2019 6:55 PM LAUNDRY FOLDER Impressions 04/09/2019 7:27 PM LAUNDRY FOLDER IMPRESSION: 1. ??Mild left hydronephrosis. Narrative 04/09/2019 7:27 PM LAUNDRY FOLDER EXAM: US RENAL COMPLETE LOCATION: [facility] DATE/TIME: 04/09/2019 6:55 PM INDICATION: Left pyelonephritis, left fl ank pain, COMPARISON: None. TECHNIQUE: Routine Bilateral Renal and B ladder Ultrasound. FINDINGS: RIGHT KIDNEY: 11.3 x 4.9 x 5.5 cm. Vannessa l without hydronephrosis or masses. LEFT KIDNEY: 10.9 x 5.8 x 6.4 cm. Mild h ydronephrosis. Cortex preserved. No mass. No abscess identified. BLADDER: Decompressed and not well seen. Procedure Note Cristopher Toussaint MD - 04/09/2019F ormatting of this note might be different from the original. EXAM: US RENAL COMPLETE LOCATION: [facility] DATE/TIME: 04/09/2019 6:55 PM INDICATION: Left pyelonephritis, left fl ank pain, COMPARISON: None. TECHNIQUE: Routine Bilateral Renal and B ladder Ultrasound. FINDINGS: RIGHT KIDNEY: 11.3 x 4.9 x 5.5 cm. Vannessa l without hydronephrosis or masses. LEFT KIDNEY: 10.9 x 5.8 x 6.4 cm. Mild h ydronephrosis. Cortex preserved. No mass. No abscess identified. BLADDER: Decompressed and not well seen. IMPRESSION: 1. Mild left hydronephrosis. Renata Garvey MD IMG US ORDERABLES Rupture of Membranes by ROM Plus (04/09/2019 6:10 PM LAUNDRY FOLDER) athologist Signature Rupture of Negative NEG^Negati 04/09/2019 [place] ve 6:54 PM LAUNDRY FOLDER [facility] by [facility] ROM Plus Specimen Anatomical Collection Method Collection Time Receive d Time (Source) Location / / Volume Laterality Amniotic fluid 04/09/2019 6:10 PM 019 6:32 specimen LAUNDRY FOLDER PM LAUNDRY FOLDER (specimen) Renata Garvey MD LAB - BODY FLUIDS ORDERABLES Performing Organization Address City/[facility]/ZIP Code Phon e Number [place] [address] [place], [place] [address] [facility] [address] [phone] ABO/Rh type and screen (04/09/2019 5:04 PM LAUNDRY FOLDER) [facility] Method Time Signature ABO A 04/09/2019 [place] 5:55 PM [facility] RH(D) Pos [facility] Antibody Neg 04/09/2019 [place] Screen 5:55 PM [facility] Test Valid [place] 04/09/2019 [facility] Only At [facility] 5:23 PM [facility] Specimen 04/12/2019 04/09/2019 [place] Expires 5:23 PM [facility] Specimen Anatomical Collection Method Collection Time Receive d Time (Source) Location / / Volume Laterality Blood specimen 04/09/2019 5:04 PM 019 5:16 (specimen) LAUNDRY FOLDER PM LAUNDRY FOLDER Renata Garvey MD LAB - BLOOD BANK TEST ORDER Performing Organization Address City/[facility]/ZIP Code Phon e Number M [facility] [address], [place] [address] [facility] [address] [place], [place] [address], [facility] [phone] Opiates quantitative urine (04/09/2019 3:53 PM LAUNDRY FOLDER) Analysis Performed At [facility] logist Time Signature Codeine, Urine Negative ng/ml 04/18/2019 [place] 9:29 AM [facility] Morphine, Urine Negative ng/ml 04/18/2019 [place] 9:29 AM [facility] 6-Acetylmorphin Negative ng/ml 04/18/2019 [place] e Metabolite 9:29 AM [facility] Comment: (Note) Quantitative confirmation of analytes is performed by GC/MS (Gas Chromatography with Mass Spectromet ry). Results are reported to the limit of quantitation fo r the analysis. Drugs Codeine, Morphine, 6-Acetylmorphine This test was developed and its performa nce characteristics determined by [employer]. It has not been c leared or approved by the Food and Drug Administration. Analysis performed by [employer], [address] [place] [address] Specimen Anatomical Collection Method Collection Time Receive d Time (Source) Location / / Volume Laterality 04/09/2019 3:53 PM 9 4:01 LAUNDRY FOLDER PM LAUNDRY FOLDER Omar Galaviz MD LAB - URINE ORDERABLES Performing Organization Address City/State/ZIP Code Phon e Number [place] [address], [place] [address] [facility] [address] [place], [place] [address] [facility] [phone] (ABNORMAL) Drug Screen Urine / (04/09/2019 3:53 PM LAUNDRY FOLDER) [facility] Method Time Signature Amphetamine Qual Negative NEG^Negati 04/09/2019 [place] Urine ve 4:21 PM [facility] Comment: Cutoff for a negative amphetami ne is 500 ng/mL or less. Cannabinoids Qual Negative NEG^Negative 04/09/2019 4:21 PM [facility] Comment: Cutoff for a negative cannabino id is 50 ng/mL or less. Cocaine Qual Urine Negative NEG^Negative 04/09/2019 4:20 PM [facility] Comment: Cutoff for a negative cocaine i s 300 ng/mL or less. Opiates Positive, sent to NEG^Negative 04/09/2019 4:20 [facility] Qualitative Urine [employer] for PM [facility] Comment: Cutoff for a positive opiate is greater than 300 ng/mL. This is an unconfirmed screening result to be used for medical purposes only. Pcp Qual Urine Negative NEG^Negative 04/09/2019 4:21 PM [facility] Comment: Cutoff for a negative PCP is 25 ng/mL or less. Specimen Anatomical Collection Method Collection Time Receive d Time (Source) Location / / Volume Laterality Urine specimen 04/09/2019 3:53 PM 019 4:01 (specimen) LAUNDRY FOLDER PM LAUNDRY FOLDER Renata Garvey MD LAB - URINE ORDERABLES Performing Organization Address City/State/ZIP Code [facility] e Number [place] [address] [place] [address] [facility] [address] [phone] (ABNORMAL) UA with Microscopic (04/09/2019 3:53 PM LAUNDRY FOLDER) [facility] Method Time Signature Color Urine Yellow 04/09/2019 [place] 4:09 PM [facility] Appearance Urine Slightly 04/09/2019 [place] Cloudy 4:09 PM [facility] Glucose Urine Negative NEG^Negat 04/09/2019 [place] salma mg/dL 4:09 PM [facility] Bilirubin Urine Negative NEG^Negat 04/09/2019 [place] salma 4:09 PM [facility] Ketones Urine >150 (A) NEG^Negat 04/09/2019 [place] salma mg/dL 4:09 PM [facility] Specific [place] 1.027 1.003 - 04/09/2019 [place] Urine 1.035 4:09 PM [facility] Blood Urine Negative NEG^Negat 04/09/2019 [place] salma 4:09 PM [facility] pH Urine 6.0 5.0 - 7.0 04/09/2019 [place] pH 4:09 PM [facility] Protein Albumin 30 (A) NEG^Negat 04/09/2019 [place] Urine salma mg/dL 4:09 PM [facility] Urobilinogen Normal 0.0 - 2.0 04/09/2019 [place] mg/dL mg/dL 4:09 PM [facility] Nitrite Urine Negative NEG^Negat 04/09/2019 [place] salma 4:09 PM [facility] Leukocyte Negative NEG^Negat 04/09/2019 [place] Esterase Urine salma 4:09 PM [facility] Source Midstream 04/09/2019 [place] Urine 3:53 PM [facility] WBC Urine 6 (H) 0 - 5 04/09/2019 [facility] /HPF 4:09 PM [facility] RBC Urine 3 (H) 0 - 2 04/09/2019 [facility] /HPF 4:09 PM [facility] Squamous 9 (H) 0 - 1 04/09/2019 [place] Epithelial /HPF /HPF 4:09 PM [facility] Mucous Urine Present (A) NEG^Negat 04/09/2019 [place] /LPF 4:09 PM [facility] Specimen (Source) Anatomical Location Collection Method Collection Time Received Time / Laterality / Volume Examination of URINE SPECIMEN 04/09/2019 3:53 04/09/20 19 midstream urine COLLECTION, PM LAUNDRY FOLDER 4:01 PM LAUNDRY FOLDER specimen CATHETERIZED / (procedure) Unknown Omar Galaviz MD LAB - URINE ORDERABLES Performing Organization Address City/State/ZIP Code Phon e Number [place] [address] [place] [address] [phone] Urine Culture Aerobic Bacterial (04/09/2019 3:53 PM LAUNDRY FOLDER) Component Value Ref Test Analysis Performed At [facility] Range Method Time Signature Specimen Midstream Urine INFECTIOUS Description DISEASES DIAGNOSTIC LABORATORY Special Specimen 04/09/2019 INFECTIOUS Requests received in 5:59 PM LAUNDRY FOLDER DISEASES preservative DIAGNOSTIC LABORATORY Culture Micro No growth 04/10/2019 INFECTIOUS 9:27 PM LAUNDRY FOLDER DISEASES DIAGNOSTIC LABORATORY Specimen (Source) Anatomical Collection Method Collection Time Re ceived Time Location / / Volume Laterality Examination of URINE SPECIMEN / 04/09/2019 3:53 2018 4:01 midstream urine Unknown PM LAUNDRY FOLDER PM LAUNDRY FOLDER specimen (procedure) Omar Galaviz MD LAB - MICRO GENERAL ORDERABL ES Performing Organization Address [facility] Phon e Number INFECTIOUS DISEASES [address] [place] [address] DIAGNOSTIC LABORATORY, [facility] INFECTIOUS DISEASES [address] [place] [address], A DIAGNOSTIC LABORATORY Blood culture ONE site (04/09/2019 3:18 PM LAUNDRY FOLDER) [facility] Method Time Signature Specimen Blood INFECTIOUS Description Right Hand DISEASES DIAGNOSTIC LABORATORY Culture Micro No growth 04/16/2019 INFECTIOUS 3:15 PM LAUNDRY FOLDER DISEASES DIAGNOSTIC LABORATORY Specimen Anatomical Collection Method Collection Time Receive d Time (Source) Location / / Volume Laterality Blood specimen 04/09/2019 3:18 PM 019 3:19 (specimen) LAUNDRY FOLDER PM LAUNDRY FOLDER Comment: Right Hand Omar Galaviz MD LAB - MICRO GENERAL ORDERABL ES Performing Organization Address [facility] Phon e Number INFECTIOUS DISEASES [address] [place] [address] DIAGNOSTIC LABORATORY, [facility] INFECTIOUS DISEASES [address] [place] [address], A DIAGNOSTIC LABORATORY Blood culture ONE site (04/09/2019 3:12 PM LAUNDRY FOLDER) [facility] Method Time Signature Specimen Blood INFECTIOUS Description Right Arm DISEASES DIAGNOSTIC LABORATORY Culture Micro No growth 04/16/2019 INFECTIOUS 3:15 PM LAUNDRY FOLDER DISEASES DIAGNOSTIC LABORATORY Specimen Anatomical Collection Method Collection Time Receive d Time (Source) Location / / Volume Laterality Blood specimen 04/09/2019 3:12 PM 019 3:13 (specimen) LAUNDRY FOLDER PM LAUNDRY FOLDER Comment: Right Arm Omar Galaviz MD LAB - MICRO GENERAL ORDERABL ES Performing Organization Address [facility] Phon e Number INFECTIOUS DISEASES [address] [place] [address] DIAGNOSTIC LABORATORY, [facility] INFECTIOUS DISEASES [address] [place] [address], A DIAGNOSTIC LABORATORY (ABNORMAL) UA with Microscopic (04/09/2019 2:44 PM LAUNDRY FOLDER) [facility] Method Time Signature Color Urine Yellow 04/09/2019 [facility] 3:16 PM [facility] Appearance Urine Slightly 04/09/2019 [facility] Cloudy 3:16 PM [facility] Glucose Urine Negative NEG^Negat 04/09/2019 [facility] salma mg/dL 3:16 PM [facility] Bilirubin Urine Negative NEG^Negat 04/09/2019 [facility] salma 3:16 PM [facility] Ketones Urine 60 (A) NEG^Negat 04/09/2019 [facility] salma mg/dL 3:16 PM [facility] Specific [place] 1.025 1.003 - 04/09/2019 [facility] Urine 1.035 3:16 PM [facility] Blood Urine Negative NEG^Negat 04/09/2019 [facility] salma 3:16 PM [facility] pH Urine 6.0 5.0 - 7.0 04/09/2019 [facility] pH 3:16 PM [facility] Protein Albumin 30 (A) NEG^Negat 04/09/2019 [facility] Urine salma mg/dL 3:16 PM [facility] Urobilinogen Normal 0.0 - 2.0 04/09/2019 [facility] mg/dL mg/dL 3:16 PM [facility] Nitrite Urine Negative NEG^Negat 04/09/2019 [facility] salma 3:16 PM [facility] Leukocyte Trace (A) NEG^Negat 04/09/2019 [facility] Esterase Urine salma 3:16 PM [facility] Source Midstream 04/09/2019 [facility] Urine 2:44 PM [facility] WBC Urine 10 (H) 0 - 5 04/09/2019 [facility] /HPF 3:16 PM [facility] RBC Urine 12 (H) 0 - 2 04/09/2019 [facility] /HPF 3:16 PM [facility] Bacteria Urine Few (A) NEG^Negat 04/09/2019 [facility] salma /HPF 3:16 PM [facility] Yeast Urine Few (A) NEG^Negat 04/09/2019 [facility] salma /HPF 3:16 PM [facility] Squamous 29 (H) 0 - 1 04/09/2019 [facility] Epithelial /HPF /HPF 3:16 PM [facility] Mucous Urine Present (A) NEG^Negat 04/09/2019 [facility] salma /LPF 3:16 PM [facility] Amorphous Few (A) NEG^Negat 04/09/2019 [facility] Crystals salma /HPF 3:16 PM [facility] Specimen (Source) Anatomical Collection Method Collection Time Re ceived Time Location / / Volume Laterality Examination of URINE SPECIMEN / 04/09/2019 2:44 2018 2:51 midstream urine Unknown PM LAUNDRY FOLDER PM LAUNDRY FOLDER specimen (procedure) Omar Galaviz MD LAB - URINE ORDERABLES Performing Organization Address City/[facility]/ZIP [facility] Phon e Number [facility] [address], [place] [address] [facility] [address] [place], [place] [address], [facility] [phone] Lactic acid whole blood (04/09/2019 2:17 PM LAUNDRY FOLDER) P athologist Signature Lactic Acid 1.2 0.7 - 2.0 04/09/2019 [facility] mmol/L 2:46 PM [facility] Specimen Anatomical Collection Method Collection Time Receive d Time (Source) Location / / Volume Laterality Blood specimen 04/09/2019 2:17 PM 019 2:41 (specimen) LAUNDRY FOLDER PM LAUNDRY FOLDER Omar Galaviz MD LAB - BLOOD ORDERABLES Performing Organization Address City/[facility] Phon e Number [facility] [address], [place] [address] [facility] [address] [place], [place] [address], [facility] [phone] (ABNORMAL) Comprehensive metabolic panel (04/09/2019 2:16 PM LAUNDRY FOLDER) Analysis Performed At Patho logist Time Signature Sodium 138 133 - 144 04/09/2019 [facility] mmol/L 3:14 PM [facility] Potassium 3.3 (L) 3.4 - 5.3 04/09/2019 [facility] mmol/L 3:14 PM [facility] Chloride 106 94 - 109 04/09/2019 [facility] mmol/L 3:14 PM [facility] Carbon Dioxide 21 20 - 32 04/09/2019 [facility] mmol/L 3:20 PM [facility] Anion Gap 11 3 - 14 04/09/2019 [facility] mmol/L 3:20 PM [facility] Glucose 86 70 - 99 04/09/2019 [facility] mg/dL 3:20 PM [facility] Urea Nitrogen 8 7 - 30 04/09/2019 [facility] mg/dL 3:20 PM LAUNDRY FOLDER [facility] Creatinine 0.51 (L) 0.52 - 04/09/2019 [place] 1.04 mg/dL 3:20 PM [facility] GFR Estimate >90 >60 04/09/2019 [place] mL/min/{1. 3:20 PM [facility] 73_m2} HOSPITAL Comment: Non GFR Calc Starting 04/13/2018, serum creatinine ba sed estimated GFR (eGFR) will be calculated using the Chronic Kidney Dise [facility] Epidemiology Collaboration (CKD-EPI) equation. GFR Estimate If >90 >60 mL/min/{1.73_m2} 04/09/2019 3: 20 PM [facility] Comment: GFR Calc Starting 04/13/2018, serum creatinine ba sed estimated GFR (eGFR) will be calculated using the Chronic Kidney Dise [facility] Epidemiology Collaboration (CKD-EPI) equation. Calcium 9.3 8.5 - 10.1 mg/dL 04/09/2019 3:20 PM [facility] Bilirubin Total 0.2 0.2 - 1.3 mg/dL 04/09/2019 3:22 PM [facility] Albumin 3.4 3.4 - 5.0 g/dL 04/09/2019 3:22 PM [facility] [facility] Protein Total 7.4 6.8 - 8.8 g/dL 04/09/2019 3:22 PM [facility] Alkaline Phosphatase 90 40 - 150 U/L 04/09/2019 3:22 PM [facility] ALT 20 0 - 50 U/L 04/09/2019 3:22 PM [facility] AST 18 0 - 45 U/L 04/09/2019 3:22 PM [facility] Specimen Anatomical Collection Method Collection Time Receive d Time (Source) Location / / Volume Laterality Blood specimen 04/09/2019 2:16 PM 019 2:40 (specimen) [facility] Omar Galaviz MD LAB - BLOOD ORDERABLES Performing Organization Address City/State/ZIP Code Phon e Number [place] [address] [address] [place], [place] [address] [facility] [address] [phone] (ABNORMAL) CBC with platelets differential (04/09/2019 2:16 PM [facility]) [facility] Method Time Signature WBC 11.6 (H) 4.0 - 04/09/2019 [facility] 11.0 2:48 PM [facility] 10e9/L [facility] RBC Count 4.23 3.8 - 5.2 04/09/2019 [facility] 10e12/L 2:48 PM [facility] Hemoglobin 12.7 11.7 - 04/09/2019 [facility] 15.7 g/dL 2:48 PM [facility] Hematocrit 37.7 35.0 - 04/09/2019 [facility] 47.0 % 2:48 PM [facility] MCV 89 78 - 100 04/09/2019 [facility] fl 2:48 PM [facility] MCH 30.0 26.5 - 04/09/2019 [facility] 33.0 pg 2:48 PM [facility] MCHC 33.7 31.5 - 04/09/2019 [facility] 36.5 g/dL 2:48 PM [facility] RDW 13.5 10.0 - 04/09/2019 [facility] 15.0 % 2:48 PM [facility] Platelet Count 344 150 - 450 04/09/2019 [facility] 10e9/L 2:48 PM [facility] Diff Method Automated 04/09/2019 [facility] Method 2:48 PM [facility] % Neutrophils 76.5 % 04/09/2019 [facility] 2:48 PM [facility] % Lymphocytes 14.2 % 04/09/2019 [facility] 2:48 PM [facility] % Monocytes 7.5 % 04/09/2019 [facility] 2:48 PM [facility] % Eosinophils 0.6 % 04/09/2019 [facility] 2:48 PM [facility] % Basophils 0.4 % 04/09/2019 [facility] 2:48 PM [facility] % Immature 0.8 % 04/09/2019 [facility] Granulocytes 2:48 PM [facility] Nucleated RBCs 0 0 /100 04/09/2019 [facility] 2:48 PM [facility] Absolute 8.8 (H) 1.6 - 8.3 04/09/2019 [facility] Neutrophil 10e9/L 2:48 PM [facility] Absolute 1.6 0.8 - 5.3 04/09/2019 [facility] Lymphocytes 10e9/L 2:48 PM [facility] Absolute 0.9 0.0 - 1.3 04/09/2019 [facility] Monocytes 10e9/L 2:48 PM [facility] Absolute 0.1 0.0 - 0.7 04/09/2019 [place] Eosinophils 10e9/L 2:48 PM [facility] Absolute 0.1 0.0 - 0.2 04/09/2019 [place] Basophils 10e9/L 2:48 PM [facility] Abs Immature 0.1 0 - 0.4 04/09/2019 [place] Granulocytes 10e9/L 2:48 PM [facility] Absolute 0.0 04/09/2019 [place] Nucleated RBC 2:48 PM [facility] Specimen Anatomical Collection Method Collection Time Receive d Time (Source) Location / / Volume Laterality Blood specimen 04/09/2019 2:16 PM 019 2:40 (specimen) [facility] PM [facility] Omar Galaviz MD LAB - BLOOD ORDERABLES Performing Organization Address City/State/ZIP Code Phon e Number [place] [address] [phone] documented in this encounter Visit Diagnoses Diagnosis Kidney stone - Primary Calculus of kidney Pyelonephritis affecting in th ird trimester documented in this encounter Administered Medications Inactive Administered Medications - up to 3 most recent administrations Medication Order MAR Action Action Date Dose Rate Site 0.9% sodium chloride BOLUS New Bag 04/09/2019 2:43 PM [facility] 1,000 mLs 1000 mL/hr Intravenous, 1,000 mL, ONCE, at 1,000 mL/hr, Administer over 1 Hours, On 04/09/19 at 1434, For 1 dose acetaminophen (TYLENOL) tablet 650 mg Given 04/11/2019 8:19 AM [facility]OL[facility] 650 mg 650 mg, Oral, EVERY 4 HOURS PRN, mild pain, fever, Starting on 04/09/19 at 1641, Maximum acetaminophen dose from all sources = 75 mg/kg/day not to exceed 4 grams/day. Given 04/11/2019 4:23 AM [facility] 650 mg Given 04/10/2019 11:44 PM [facility] 650 mg calcium carbonate (TUMS) chewable tablet Given 04/09/2019 9:55 P M [facility] 1,000 mg 1,000 mg 1,000 mg, Oral, 3 TIMES DAILY PRN, heartburn, Starting on 04/09/19 at 2133 cefTRIAXone (ROCEPHIN) 1 g vial to attach to New Bag 9 2:52 PM [facility] 1 g NS 100 mL bag for ADULTS or NS 50 mL bag for PEDS STAT, 1 g, Intravenous, ONCE, On 04/09/19 at 1439, For 1 dose, Indications: Pyelonephritis cefTRIAXone (ROCEPHIN) 1 g vial to attach to New Bag 9 3:24 PM [facility] 1 g NS 100 mL bag for ADULTS or NS 50 mL bag for PEDS Routine, 1 g, Intravenous, EVERY 24 HOURS, First dose on 04/10/19 at 1500, Indications: Pyelonephritis fentaNYL (PF) (SUBLIMAZE) injection 50-100 Given 04/10/2019 9:49 AM [facility] 100 mcg mcg 50-100 mcg, Intravenous, EVERY 1 HOUR PRN, moderate to severe pain, Starting on 04/09/19 at 1933, For ordered IV doses 1-100 mcg give IV Push undiluted over a minimum of 3-5 minutes. Given 04/10/2019 8:26 AM [facility]OLDER 100 mcg Given 04/10/2019 6:51 AM [facility] 100 mcg HYDROmorphone (PF) (DILAUDID) injection 0.5 Given 04/09/2019 3:21 PM [facility] 0.5 mg mg 0.5 mg, Intravenous, EVERY 15 MIN PRN, other, pain control or improvement in physical function. Hold dose for analgesic side effects., Starting on 04/09/19 at 1433, For 3 doses, Notify the provider to assess for uncontrolled pain or analgesic side effects. Hold while on IV HIGH DENSITY PRESS LABORER or with regular IV opioid dosing. For ordered IV doses 0.1-4 mg give IV Push undiluted. Administer each 2mg over 2-5 minutes. Given 04/09/2019 3:04 PM [facility] 0.5 mg Given 04/09/2019 2:43 PM [facility] 0.5 mg HYDROmorphone (PF) (DILAUDID) injection 0.5 Given 04/09/2019 6:20 PM [facility] 0.5 mg mg 0.5 mg, Intravenous, EVERY 15 MIN PRN, other, pain control or improvement in physical function. Hold dose for analgesic side effects., Starting on 04/09/19 at 1510, For 3 doses, Notify the provider to assess for uncontrolled pain or analgesic side effects. Hold while on IV HIGH DENSITY PRESS LABORER or with regular IV opioid dosing. For ordered IV doses 0.1-4 mg give IV Push undiluted. Administer each 2mg over 2-5 minutes. Given 04/09/2019 4:51 PM [facility] 0.5 mg Given 04/09/2019 4:03 PM [facility] 0.5 mg hydrOXYzine (ATARAX) tablet 25 mg 25 mg, Oral, EVERY 6 HOURS PRN, other, a djuvant pain, Starting on 04/10/19 at 1023 hydrOXYzine (ATARAX) tablet 50 mg Given 04/11/2019 2:40 AM [facility] 50 mg 50 mg, Oral, EVERY 6 HOURS PRN, other, adjuvant pain, Starting on 04/10/19 at 1023 Given 04/10/2019 5:23 PM [facility] 50 mg Given 04/10/2019 11:02 AM [facility] 50 mg naloxone (NARCAN) injection 0.1-0.4 mg 0.1-0.4 mg, Intravenous, EVERY 2 MIN PRN , opioid reversal, Starting on 04/09/19 at 1937, For respiratory rate LESS than or EQUAL to 8. Partial reversal dose: 0.1 mg titrated q 2 minutes for Analgesia Si de Effects Monitoring Sedation Level of 3 (frequently drowsy, arousable, drifts to sleep during conversation).Full reversal dose: 0.4 mg bolus for Analgesia Side Effects Monitori ng Sedation Level of 4 (somnolent, minimal or no response to st imulation). For ordered IV doses 0.1-2mg give IVP. Give each 0.4mg over 15 second s in emergency situations. For non-emergent situations further dilute in 9mL of NS to facilitate t itration of response. No Tdap Needed - Assessment: Patient ga s not need Tdap vaccine CONTINUOUS PRN, Starting on 04/09/19 at 1542, Unti l 04/11/19 at 1236, Assessment: Patient does not need Tdap immunization omeprazole (priLOSEC) CR capsule 20 mg Given 04/11/2019 8:12 AM [facility] 20 mg 20 mg, Oral, EVERY MORNING BEFORE BREAKFAST, First dose on 04/10/19 at 0145 Given 04/10/2019 1:58 AM [facility] 20 mg ondansetron (ZOFRAN) injection 4 mg Given 04/09/2019 3:50 PM [facility] 4 mg 4 mg, Intravenous, EVERY 30 MIN PRN, nausea, vomiting, Administer over 2-5 Minutes, Starting on 04/09/19 at 1433, For 3 doses, May repeat in 30 minutes as needed, up to 3 doses. Irritant. For ordered IV doses 0.1-4 mg, give IV Push undiluted over 2-5 minutes. Given 04/09/2019 2:43 PM [facility] 4 mg ondansetron (ZOFRAN) injection 4 mg Given 04/10/2019 4:57 AM [facility] 4 mg 4 mg, Intravenous, EVERY 6 HOURS PRN, nausea, vomiting, Administer over 2-5 Minutes, Starting on 04/09/19 at 1539, If nausea not resolved in 15 minutes, notify provider before proceeding to prochlorperazine (COMPAZINE) [if ordered]. Irritant. For ordered IV doses 0.1-4 mg, give IV Push undiluted over 2-5 minutes. Given 04/09/2019 9:19 PM [facility] 4 mg oxyCODONE (ROXICODONE) tablet 5-10 mg Given 04/11/2019 8:19 AM [facility] 10 mg 5-10 mg, Oral, EVERY 4 HOURS PRN, moderate to severe pain, Starting on 04/10/19 at 1023 Given 04/11/2019 4:23 AM [facility] 10 mg Given 04/10/2019 11:44 PM [facility] 10 mg phenazopyridine (PYRIDIUM) tablet 100 mg Given 04/11/2019 9:33 AM [facility] 100 mg 100 mg, Oral, 3 TIMES DAILY WITH MEALS, First dose on 04/10/19 at 1200 Given 04/10/2019 6:32 PM [facility] 100 mg Given 04/10/2019 1:10 PM [facility] 100 mg senna-docusate (SENOKOT-S/PERICOLACE) Given 04/10/2019 7:[address] 1 tablet 8.6-50 MG per tablet 1 tablet 1 tablet, Oral, 2 TIMES DAILY, First dose on 04/09/19 at 2000, If no bowel movement in 24 hours, increase to 2 tablets PO. Hold for loose stools. Hold for loose stools. Given 04/10/2019 9:56 AM [facility] 1 tablet Given 04/09/2019 9:13 PM [facility] 1 tablet senna-docusate (SENOKOT-S/PERICOLACE) Given 04/11/2019 8:[address] 2 tablets 8.6-50 MG per tablet 2 tablet 2 tablet, Oral, 2 TIMES DAILY, First dose on 04/09/19 at 2000, Hold for loose stools. Hold for loose stools. sodium chloride 0.9% infusion New Bag 04/10/2019 9:57 AM [facility] 125 mL/hr at 125 mL/hr, Intravenous, CONTINUOUS, Administer after the boluses., Starting on 04/09/19 at 1534, Until 04/10/19 at 1727 New Bag 04/10/2019 1:45 AM [facility] 125 mL/hr New Bag 04/09/2019 6:21 PM [facility] 125 mL/hr sodium citrate-citric acid (BICITRA) solution Given 1:48 AM [facility] 30 mLs 30 mL 30 mL, Oral, ONCE, On 04/10/19 at 0145, For 1 dose documented in this encounter Active and Recently Administered Medications Times are shown in [facility]. Scheduled Medication Order 04/09/2019 04/10/2019 04/11/2019 0.9% sodium chloride BOLUS (COMPLETED) 1443 (New Bag - Provider: Carlos Fry RN)1724 (Stopped - Provider: Carlos Fry, RN) Intravenous, 1,000 mL, ONCE, at 1,000 mL /hr, Administer over 1 Hours, 04/09/19 at 1434, For 1 dose cefTRIAXone (ROCEPHIN) 1 g vial to attac h to NS 100 mL bag for ADULTS or NS 50 mL bag for PEDS (COMPLETED) 1452 (New Bag - Provider: Carlos Fry, LYLE)1521 (Stopped - Provider: Carlos Fry, RN) STAT, 1 g, Intravenous, ONCE, Sat at 1439, For 1 dose, Indications: Pyelonephritis cefTRIAXone (ROCEPHIN) 1 g vial to attac h to NS 100 mL bag for ADULTS or NS 50 mL bag for PEDS (CANCELED) 1524 (New Bag - Provider: Mikal Kate, LYLE) Routine, 1 g, Intravenous, EVERY 24 HOUR S, First dose on 04/10/19 at 1500, Indications: Pyelonephritis omeprazole (priLOSEC) CR capsule 20 mg 0 158 (Given - Provider: Therese Ortiz RN)0721 (Canceled Entry - Provider: Solange Mas RN) 0812 (Given - Provider: Vesna Neumann RN) 20 mg, Oral, EVERY MORNING BEFORE BREAKFAST, First dos e on 04/10/19 at 0145 phenazopyridine (PYRIDIUM) tablet 100 mg 1310 (Given - Provider: Solange Mas RN)1832 (Given - Provider: Teresa Kate, LYLE) 0933 (Given - Provider: Vesna Neumann RN)1200 (Canceled Entry - Provider: Orders Generic Provider - Comment: Automatically canceled at discontinue of medication order) 100 mg, Oral, 3 TIMES DAILY WITH MEALS, First dose on Sun at 1200 senna-docusate (SENOKOT-S/PERICOLACE) 8. 6-50 MG per tablet 1 tablet(Linked Group 1) 2112 (Given - Provider: Becca Barnhart RN) 09 (Not Given - Provider: Solange Mas RN - Reason: Patient/family refused)0956 (Given - Provider: Solange Mas RN)1951 (Given - Provider: Ya Chavis RN) 0812 (See Alternative - Provider: Vesna Neumann RN) 1 tablet, Oral, 2 TIMES DAILY, First dos e on 04/09/19 at 2000, If no bowel movement in 24 hours, increase to 2 tablets PO. Hold for loose stools. Hold for loose stools. senna-docusate (SENOKOT-S/PERICOLACE) 8. 6-50 MG per tablet 2 tablet(Linked Group 1) 2112 (See Alternative - Provider: Becca Barnhart RN) 0941 (See Alternative - Provider: Solange Mas RN)0956 (See Alternative - Provider: Solange Mas RN)1951 (See Alternative - Provider: Ya Chavis RN) 0812 (Given - Provider: Vesna Neumann RN) 2 tablet, Oral, 2 TIMES DAILY, First dos e on 04/09/19 at 2000, Hold for loose stools. Hold for loose stools. sodium citrate-citric acid (BICITRA) solution 30 mL (COMPLET ED) 0148 (Given - Provider: Therese Ortiz, LYLE) 30 mL, Oral, ONCE, 04/10/19 at 0145, For 1 dose Continuous Medication Order 04/09/2019 04/10/2019 04/11/2019 sodium chloride 0.9% infusion (CANCELED) 1821 (New Bag - Provider: Becca Barnhart RN) 0145 (New Bag - Provider: Therese Ortiz , LYLE)0957 (New Bag - Provider: Solange Mas, LYLE) at 125 mL/hr, Intravenous, CONTINUOUS, A dminister after the boluses., Starting 04/09/19 at 1534, Until 04/10/19 at 1727 PRN Medication Order 04/09/2019 04/10/2019 04/11/2019 acetaminophen (TYLENOL) tablet 650 mg 182 (Given - Pr ovider: Becca Barnhart RN)2342 (Given - Provider: Therese Ortiz, LYLE) 0441 (Given - Provider: Therese Ortiz, LYLE)0827 (Given - Provider: Solange Mas, LYLE)1524 (Given - Provider: Teresa Kate RN)1952 (Given - Provider: Ya Chavis, LYLE)2344 (Given - Provider: Ya Chavis, LYLE) 0423 (Given - Provider: Ya Chavis , LYLE)0819 (Given - Provider: Vesna Neumann RN) 650 mg, Oral, EVERY 4 HOURS PRN, mild pa in, fever, Starting 04/09/19 at 1641, Maximum acetaminophen dose from all sources = 75 mg/kg/day not to exceed 4 grams/day. calcium carbonate (TUMS) chewable tablet 1,000 mg 2154 (Given - Provider: Becca Barnhart, LYLE) 1,000 mg, Oral, 3 TIMES DAILY PRN, heartburn, Starting Sat 04/09 at 2133 fentaNYL (PF) (SUBLIMAZE) injection 50-100 mcg (CANCEL ED) 1956 (Given - Provider: Becca Barnhart RN)2112 (Given - Provider: Becca Barnhart RN)2342 (Given - Provider: Therese Ortiz, RN) 0159 (Given - Provider: Therese Ortiz, RN)0441 (Given - Provider: Therese Ortiz, RN)0651 (Given - Provider: Therese Ortiz, RN)0826 (Given - Provider: Solange Mas, RN)0949 (Given - Provider: Solange Mas, RN) 50-100 mcg, Intravenous, EVERY 1 HOUR OH N, Starting 04/09/19 at 1933, moderate to severe pain, For ordered IV doses 1-100 mcg give IV Push undiluted over a minimum of 3-5 minutes. HYDROmorphone (PF) (DILAUDID) injection 0.5 mg (COMPLE SANDER) 1443 (Given - Provider: Carlos Fry RN)1504 (Given - Provider: Carlos Fry, RN)1521 (Given - Provider: Carlos Fry RN) 0.5 mg, Intravenous, EVERY 15 MIN PRN, 3 doses, Starting 04/09/19 at 1433, Until Discontinued, other, pain control or improvement in physical function. Hold dose for analgesic side effects., Notify the provider to assess for uncontrolled pain or analgesic side effects. Hold while on IV HIGH DENSITY PRESS LABORER or with regular IV opioid dosing. For ordered IV doses 0.1-4 mg give IV Push undiluted. Administer each 2mg over 2-5 minutes. HYDROmorphone (PF) (DILAUDID) injection 0.5 mg (COMPLE SANDER) 1603 (Given - Provider: Carlos Fry RN)1651 (Given - Provider: Carlos Fry, RN)1820 (Given - Provider: Becca Barnhart RN) 0.5 mg, Intravenous, EVERY 15 MIN PRN, 3 doses, Starting 04/09/19 at 1510, Until Discontinued, other, pain control or improvement in physical function. Hold dose for analgesic side effects., Notify the provider to assess for uncontrolled pain or analgesic side effects. Hold while on IV HIGH DENSITY PRESS LABORER or with regular IV opioid dosing. For ordered IV doses 0.1-4 mg give IV Push undiluted. Administer each 2mg over 2-5 minutes. hydrOXYzine (ATARAX) tablet 25 mg(Linked Group 2) 1102 (See Alternative - Provider: Solange Msa RN)1723 (See Alternative - Provider: Teresa Kate, LYLE) 0240 (See Alternative - Provider: Ya Chavis, LYLE) 25 mg, Oral, EVERY 6 HOURS PRN, other, a djuvant pain, Starting 04/10/19 at 1023 hydrOXYzine (ATARAX) tablet 50 mg(Linked Group 2) 1102 (Given - Provider: Solange Mas RN)1723 (Given - Provider: Teresa Kate, LYLE) 0240 (Given - Provider: Ya Chavis, LYLE) 50 mg, Oral, EVERY 6 HOURS PRN, other, a djuvant pain, Starting 04/10/19 at 1023 naloxone (NARCAN) injection 0.1-0.4 mg 0.1-0.4 mg, Intravenous, EVERY 2 MIN PRN , opioid reversal, Starting 04/09/19 at 1937, For respiratory rate LESS than or EQUAL to 8. Partial reversal dose: 0.1 mg titrated q 2 minutes for Analgesia S mireille Effects Monitoring Sedation Level of 3 (frequently drowsy, arousable, drifts to sleep during conversation).Full reversal dose: 0.4 mg bolus for Analgesia Side Effects Monitoring Sedation Level of 4 (somnolent, minimal or no response to st imulation). For ordered IV doses 0.1-2mg give IVP. Give each 0.4mg over 15 seconds in emergency situations. For non- emergent situations further dilute in 9mL of NS to facilitate titration of response. No Tdap Needed - Assessment: Patient does not need Tdap vaccine CONTINUOUS PRN, Starting 04/09/19 at 1542, Until 04/11/19 at 1236, Assessment: Patient does not need Tdap immunization ondansetron (ZOFRAN) injection 4 mg (CANCELED) 1443 (G iven - Provider: Carlos Fry, LYLE)1550 (Given - Provider: Carlos Fry, LYLE) 4 mg, Intravenous, EVERY 30 MIN PRN, jass sea, vomiting, Administer over 2-5 Minutes, Starting 04/09/19 at 1433, For 3 doses, May repeat in 30 minutes as needed, up to 3 doses. Irritant. For ordered I V doses 0.1-4 mg, give IV Push undiluted over 2-5 minutes. ondansetron (ZOFRAN) injection 4 mg (CANCELED) 2118 (G iven - Provider: Becca Barnhart, RN) 045 (Given - Provider: Therese Ortiz, LYLE) 4 mg, Intravenous, EVERY 6 HOURS PRN, na usea, vomiting, Administer over 2-5 Minutes, Starting 04/09/19 at 1539, If nausea not resolved in 15 minutes, notify provider before proceeding to prochlorper azine (COMPAZINE) [if ordered]. Irritant . For ordered IV doses 0.1-4 mg, give IV Push undiluted over 2-5 minutes. oxyCODONE (ROXICODONE) tablet 5-10 mg 11 (Given - Provider: Solange Mas, LYLE)152 (Given - Provider: Teresa Kate, LYLE)195 (Given - Provider: Ya Chavis RN)2344 (Given - Provider: Ya Chavis RN) 0423 (Given - Provider: Ya Chavis, LYLE)0819 (Given - Provider: Vesna Neumann RN) 5-10 mg, Oral, EVERY 4 HOURS PRN, modera te to severe pain, Starting 04/10/19 at 1023 Linked Groups Order Group 1: senna-docusate (SENOKOT-S/PERICOLACE) 8.6-50 MG per tablet 1 tabletJump to med 1 tablet, Oral, 2 TIMES DAILY, First dos e on 04/09/19 at 1999
If no bowel movement in 24 hours, increase to 2 tablets PO. Hold for loose stools. Hold for loose stools.
Or senna-docusate (SENOKOT-S/PERICOLACE) 8.6-50 MG per tablet 2 tabletJump to med 2 tablet, Oral, 2 TIMES DAILY, First dos e on 04/09/19 at 1999
Hold for loose stools. Hold for loose stools.
Group 2: hydrOXYzine (ATARAX) tablet 25 mgJump to med 25 mg, Oral, EVERY 6 HOURS PRN, other, a djuvant pain, Starting 04/10/19 at 1023 Or hydrOXYzine (ATARAX) tablet 50 mgJump to med 50 mg, Oral, EVERY 6 HOURS PRN, other, a djuvant pain, Starting 04/10/19 at 1023 documented in this encounter Care Teams Tube Bending Machine Operator Relationship Specialty Start Date End Date Stephania Morin APRN PCP - General Nurse Practitioner - Family [birth year] [employer] [address] [place] [address] documented as of this encounter
--- OUTSIDE RECORDS SUMMARY | 2022-01-23 23:52 | XMS_ITS | Encounter Summary ---
:1985 Author Organization [facility] Address [address] [place] [id number] Care Team Providers Name Role Phone Stephania Morin APRN PERSONNEL COUNSELOR Primary Care Provider Reason for Visit Reason Onset Date Comments Vaginal Problem 01/04/2013 Encounter Details Date Type Department Care Team Description 01/04/2013 Telephone [facility] Stephania Morin APRN Vaginal Problem [facility] [address] [facility] [place] [address] [place] [address] [id number] [phone] Social History Tobacco Use Types Packs/Day Years Used Date Never Smoker Smokeless Tobacco: Never Used Alcohol Use Standard Drinks/Week Comments Yes 0 (1 standard drink = 0.6 oz pure alcoho l) Sex Assigned at Date Recorded Not on file documented as of this encounter Miscellaneous Notes Telephone Encounter - Meera Solorio - 01/04/2013 5:05 PM CDT Patient informed. Meera Solorio RN, AE-C Telephone Encounter - Solange Valderrama PA-C - 01/04/2013 4:57 PM CDT Filled. 1 tab now. May repeat in 1 week. Solange Valderrama PA-C Telephone Encounter - Osmin Meera - 01/04/2013 4:26 PM CDT Spoke to patient- Burning, painful urination, urinary frequency and a little cloudy discharge. Was on antibiotic for strep throat and last dose is tomorrow. Using Azithromycin for strep throat. Patient reports this is how she feels when she has a yeast infection. I explained this also sounds like a possible UTI but sheagain states she has this same feeling with yeast infection. Okay to refill the Diflucan? She is currently in [place]. PCP is out of office today. Patient is requesting a different provider review as she is uncomfortable. Meera Solorio RN, AE-C Telephone Encounter - Kaylan Coon - 01/04/2013 3:30 PM CDT Please call patient at [phone]. As patient has another yeast infection and states that she is allergic to the over counter medication Monistat . Wants to if she can get a refill on Difflucan .[facility] [phone] documented in this encounter Plan of Treatment Not on filedocumented as of this encounter Visit Diagnoses Diagnosis Vulvovaginal candidiases - Primary Candidiasis of vulva and vagina documented in this encounter Care Teams Personal Investment Adviser Relationship Specialty Start Date End Date Stephania Morin APRN PCP - General Nurse Practitioner - Family [birth year][address] [address] documented as of this encounter
--- OUTSIDE RECORDS SUMMARY | 2022-01-23 23:52 | XMS_ITS | Encounter Summary ---
:1985 Author Organization [facility] Address [address] [place] [address] Care Team Providers Name Role Phone Brandan Ferreira M.D. Primary Care Provider Reason for Referral Specialty Diagnoses / Procedures Referred By Contact Refer red To Contact Brandan Ferreira M. D. [address] [phone] Referral ID Status Reason Start Date Expiration Date Visits Requ ested Visits Authorized Encounter Details Date Type Department Care Team Description 11/04/2021 Orders Only [facility] PCP [facility] Brandan Ferreiar M.D. [address] [place] [phone] (Wo rk) Social History Tobacco Use Types [...] or relatives? How often do you attend alevism or More than 4 times per year 05/31/2021 protestant services? Do you belong to any clubs or Yes 05/31/2021 organizations such as alevism groups, unions, fraternal or athletic groups, or [...] place to sleep or slept in a detention (including now)? Education Answer Date Recorded What is the highest level of school Bachelor's degree (e.g., BA, AB, 03/21/2021 you have completed or the highest BS) degree you have received? Sex Assigned at Date Recorded Female 01/23/2021 7:15 AM CDT documented as of this encounter Plan of Treatment Scheduled Referrals Name Type Priority Associated Order Schedule Diagnoses Covid immunization Outpatient Referral Routine Ex pected: office visit 11/04/2021 Immuno/Booster (Approximate) , Expires: 11/04/2022 documented as of this encounter Visit Diagnoses Not on filedocumented in this encounter Additional Health Concerns Assessment Noted Time PHQ-9 Depression Total Score: 8 06/24/2021 3:34 PM GAS STATION MANAGER documented as of this encounter Care Teams Stitchdown Thread Laster Relationship Specialty Start Date End Date Brandan Ferreira M.D. PCP - General 09/27/21 12/18/[address] [place] [address] [phone] documented as of this encounter
--- OUTSIDE RECORDS SUMMARY | 2022-01-23 23:52 | XMS_ITS | Encounter Summary ---
:1985 Author Organization [facility] Address [address] [place] [address] Care Team Providers Name Role Phone Stephania Morin APRN, CNP Primary Care Provider [phone] Encounter Details Date Type Department Care Team Description 04/23/2014 Virtual Visit [facility] Sarah Holcomb MD [address] [place] [address] [place] [address] [address] [place] [address] [phone] Social History Tobacco Use Types Packs/Day Years Used Date Never Smoker Smokeless Tobacco: Never Used Alcohol Use Standard Drinks/Week Comments Yes 0 (1 standard drink = 0.6 oz pure alcoho l) Sex Assigned at Date Recorded Not on file documented as of this encounter Progress Notes Sarah Holcomb MD - 04/23/2014 9:09 AM CST Date: 04-23-2014 09:09:36 Clinician: Sarah Holcomb Clinician NPI: [id number] Patient: Noa Franco Patient : 1985 Patient Address: [address] [place] [address] Patient Phone: [phone] Clinic Name: [facility] Clinic Visit Protocol: URI Patient Summary: Noa is a 28 year old ( : 1985 ) female who initiated a Zip for a presumed sinus infection. When asked the question Do you have a [facility] primary care physician?, Noa responded No. Her symptoms started 8-10 days ago and consist of post-nasal drainage, cough, malaise, nasal congestion, and ear pain. She denies anorexia, fever, nausea, rhinitis, vomiting, hoarse voice, sore throat, chills, myalgias, and chest pain. She denies dyspnea and dysphagia and shortness ofbreath. She denies a history of facial surgery. Her moderate nasal secretions are green and yellow. Her severe facial pressure started after the onset of other URI symptoms. she has teeth pain and is confident the tooth pain is not from a cavity, recent dental work or other mouth problems. She also has a moderate headache. When asked to feel her neck she could not tell if lymph nodes were enlarged. She could not tell if lymphadenopathy is present. Her bilateral moderate ear pain started 5-7 days ago after the onset of URI symptoms. No fluid is draining from the ear(s). Her mild (a few coughs/hr) non-productive cough is more bothersome at night. She belives the cough is caused by post-nasal drainage. She has tried medications to help the cough and found them to be effective. The patient denies COPD or daily asthma inhaler use. Pulse: self-reported pulse rate as: 10 beats in 10 seconds. The patient does not smoke or use smokeless tobacco. Patient denies . She denies . The patient has not recently traveled internationally. CURRENT MEDICATIONS: No current medications ALLERGIES:NKDA Clinician Response: Dear Noa , Based on the information you have provided, you likely have acutesinusitis, otherwise known as a sinus infection. I am prescribing amoxicillin 500 mg. Take two tablets by mouth three times a day for 10 days. There are no refills with this prescription. Sinus pressure occurs when the tissues lining your sinuses become swollen and inflamed. Afrin nasal spray decreases the swelling to provide the quickest and most effective relief from sinus pressure. Use oxymetazoline (Afrin, or store brand) nasal spray. [place] once in each nostril twice per day for a maximum of 3 days. This is an [id number]-[id number] medication you can find at most any pharmacies. Consider using a sinus irrigation kit such as Sinus Rinse, Neti Pot, SinuCleanse (or store brand). Be sure to use sterileor previously boiled water to prevent unwanted infections. Taking 1-3 Ibuprofen 200mg tablets (200-600mg) every 8 hours will help with discomfort. Make sure to take the ibuprofen with food. Do not exceed 2400mg in 24 hours. Mild ear pain or pressure is common when you have a head cold or a sinus infection. The pain is caused by fluid and inflammation in your sinus passages. If your ear pain persists more than 3 days or if you notice drainage from your ears, please be seen in a clinic to get your ears examined. Drink plenty of liquids, especially water and take time to rest your body. This may mean taking a nap or going to bed earlier. Your body is fighting an infection and liquids and rest will improve the pace of recovery. Remember to regularly wash your hands and avoid close contact with othersto prevent spreading your infection. Some women develop a yeast infection as a side effect of takingantibiotics. If you notice symptoms of a yeast infection, please use [facility] to get treatment. If you become during this course of treatment with medication, stop taking the medication and contact your primary care provider. Diagnosis: Acute Sinusitis Diagnosis ICD: 461.9 Additional Clinician Notes: Please use Afrin twice daily for 2-3 days before starting the antibiotic. Many times sinusitis clears with just Afrin, and this gives you a chance to avoid the stomach upsetand side effects of an antibiotic. Prescription: amoxicillin 500mg oral tablet 60 tablets, 10 days supply. Take two tablets by mouth three times a day for 10 days. 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
--- OUTSIDE RECORDS SUMMARY | 2022-01-23 23:52 | XMS_ITS | Encounter Summary ---
:1985 Author Organization [facility] Address [address] [place] [address] Care Team Providers Name Role Phone Stephania Morin APRN, CNP Primary Care Provider [phone] Encounter Details Date Type Department Care Team Description 04/21/2014 Virtual Visit [facility] Ally Aldrich MD [address] [place] [address] [address] [place] [address] [phone] Social History Tobacco Use Types Packs/Day Years Used Date Never Smoker Smokeless Tobacco: Never Used Alcohol Use Standard Drinks/Week Comments Yes 0 (1 standard drink = 0.6 oz pure alcoho l) Sex Assigned at Date Recorded Not on file documented as of this encounter Progress Notes Ally Aldrich MD - 06/07/2014 4:08 AM CST Date: 06-07-2014 04:08:55 Clinician: Ally Aldrich Clinician NPI: [id number] Patient: Noa Franco Patient : 1985 Patient Address: [address] [place] [address] Patient Phone: [phone] Clinic Name: [facility] Clinic Visit Protocol: URI Patient Summary: Noa is a 28 year old ( : 1985 ) female who initiated a Zip for suspected Strep throat. When asked the question Do you have a [facility] primary care physician?, Noa responded No. Her symptoms started 48 hours ago and consist of post-nasal drainage, cough, nasal conge stion, rhinitis, ear pain, hoarse voice, and sore throat. She denies anorexia, fever, nausea, malaise, vomiting, chills, myalgias, and chest pain. She denies recent development of rash, dyspnea and dysphagia and shortness of breath. She denies a history of facial surgery. Her minimal nasal secretions are clear. Her mild facial pressure preceded the onset of other URI symptoms. she also has a mild headache. She has a moderately painful sore throat. The patient claims to have white spots on tonsils like the ones in this photo: she might have been exposed to Strep. When asked to feel her neck she reported enlarged lymph nodes. Noa noted that the enlarged lymph nodes were first noticed now when prompted to check for lymphadenopathy. She could not tell if lymphadenopathy is present. Her bilateral mild ear pain started 1 day ago after the onset of URI symptoms. No fluid is draining from the ear(s). Her mild (a few coughs/hr) non-productive cough is more bothersome at night. She belives the cough is caused by post-nasal drainage. She has tried medications to help the cough and found them to be eff ective. The patient denies COPD or daily asthma inhaler use. Pulse: self- reported pulse rate as: 13 beats in 10 seconds. The patient does not smoke or use smokeless tobacco. Patient denies . She denies . The patient has not recently traveled internationally. CURRENT MEDICATIONS: No current medications ALLERGIES:NKDA Clinician Response: Dear Noa , Your [facility] lab test results show that fortunately you DO NOT have a Strep Throat infection. This means that your condition should resolve within a few days. Try the following to help with your pain and discomfort: Use throat lozenges Gargle with warm salt water (1/4 teaspoon of salt per 8 ounce glass of water) Suck on frozen items such as Popsicles or ice cubes Take ibuprofen (such as Advil or store brand) or acetaminophen (Tylenol or store brand) for discomfort or fever Follow-up with your primary care provider if your symptoms are not improving in 3-4 days. Mild ear pain or pressure is common when you have a head cold or a sinus infection. The pain is caused by fluid and inflammation in your sinus passages. If your ear pain persists more than 3 days or if you notice drainage from your ears, please be seen in a clinic to get your ears examined. Diagnosis: ZIP TICKET STREP Diagnosis ICD: 462.0 Additional Clinician Notes: Addendum created: 04-23-2014 02:32:17 by Sarah Holcomb - Her strep culture is negative; this is the gold standard for diagnosing strep throat. There is no laboratory evidence that she has contracted strep. We cannot prescribe antibiotics in this situation through [facility]; it is outside our protocols to d o so. If she feels that antibiotics are necessary, she needs to be seen in person in a clinic, but there's no guarantee that any provider is going to prescribe antibiotics for her condition. [facility]: Updated: 04-21-2014 08:11:05; Location: [facility]; Federal District Clerk: Lindsay Noble; Result: Strep Test - Negative: no group a streptococcal antigen detected by immunoassay, await culture result; Strep Culture - Negative: no beta streptococcus isolated; Checked in at: 2013 09:38; Lab completed at: April 21, 2014 09:38; Results saved at: April 21, 2014 09:39; Secondary results saved at: April 23, 2014 14:10; Review completed at: April 23, 2014 14:32 Ally Aldrich MD - 04/21/2014 10:53 AM CST Date: 04-21-2014 10:53:32 Clinician: Ally Aldrich Clinician NPI: [id number] Patient: Noa Franco Patient : 1985 Patient Address: [address] [place] [address] Patient Phone: [phone] Clinic Name: [facility] Clinic Visit Protocol: URI Patient Summary: Noa is a 28 year old ( : 1985 ) female who initiated a Zip for evaluation of bronchitis. When asked the question Do you have a [facility] primary care physician?, Noa responded No. Her symptoms started 3-6 days ago and consist of anorexia, post-nasal drainage, cough, malaise, nasal congestion, rhinitis, ear pain, hoarse voice, sore throat, and myalgias. She denies fever, nausea, vomiting, chills, and chest pain. She denies recent development of rash, dyspnea and dysphagia and shortness of breath. She denies a history of facial surgery. Her moderate nasal secretions are clear. She also has a mild headache. She has a moderately painful sore throat. The patient denies having white spots on tonsils like the ones in this photo: she has not been exposed to Strep. When asked to feel her neck she could not tell if lymph nodes were enlarged. She could not tell if lymphadenopathy is present. Her right moderate ear pain started 2-4 days ago after the onset of URI symptoms. No fluid is draining from the ear(s). Her moderately severe (cough every 5-10 minutes) productivecough is more bothersome at night. She belives the cough is not caused by post-nasal drainage. Her cough produces clear sputum. She has tried medications to help the cough and found them to be partially effective. The patient denies COPD or daily asthma inhaler use. Pulse: self-reported pulse rate as:15 beats in 10 seconds. The patient does not smoke or use smokeless tobacco. Patient denies . She denies . The patient has not recently traveled internationally. CURRENT MEDICATIONS: No current medications ALLERGIES:NKDA Clinician Response: Dear Noa , Based on the information you have provided, you likely have a viral upper respiratory infection, otherwise known as a 'cold'. I recommend using a saline nasal spray (such as [place] or store brand). Use 1-2 sprays in each nostril 3 times a day as needed for congestion.I recommend using guaifenesin + dextromethormphan (Robitussin DM, Mucinex DM). Mild ear pain or pressure is common [...] your hands and avoid close contact with others to prevent spreading your infection. 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
--- OUTSIDE RECORDS SUMMARY | 2022-01-23 23:52 | XMS_ITS | Encounter Summary ---
:1985 Author Organization [facility] Address [address] [place] [address] Care Team Providers Name Role Phone Stephania Morin APRN [facility] Primary Care Provider [phone] Encounter Details Date Type Department Care Team Description 04/09/2019 Travel Social History Tobacco Use Types Packs/Day [...] on filedocumented in this encounter Care Teams Weigher Bulker Relationship Specialty Start Date End Date Stephania Morin APRN PCP - General Nurse Practitioner - Family 02/22/21 [facility] [address] [place] [address] documented as of this encounter
--- OUTSIDE RECORDS SUMMARY | 2022-01-23 23:52 | XMS_ITS | Encounter Summary ---
:1985 Author Organization [facility] Address [address] [place] [address] Care Team Providers Name Role Phone Stephania Morin PAINTER POUND KEEPER Primary Care Provider [phone] Reason for Visit Reason Onset Date Comments Medication Question 01/04/2013 Encounter Details Date Type Department Care Team Description 01/04/2013 Telephone [facility] Stephania Morin, Medi cation Question Clinic [place] PAINTER POUND KEEPER [address] [facility] [place] [address] [address] [facility] [address] [place], [place] [phone] (Wo rk) Social History Tobacco Use Types Packs/Day Years Used Date Never Smoker Smokeless Tobacco: Never Used Alcohol Use Standard Drinks/Week Comments Yes 0 (1 standard drink = 0.6 oz pure alcoho l) Sex Assigned at Date Recorded Not on file documented as of this encounter Miscellaneous Notes Telephone Encounter - Alex Platt - 01/05/2013 8:53 AM CDT Reviewed chart. Called pharmacy; unable to talk to pharmacy as they at not open yet. Message left with verbal orders for script. Informed pt, left message on pt phone. Alex Platt MA Telephone Encounter - Kaylan Coon - 01/04/2013 5:42 PM CDT Please call patient at [phone]. As patient is waiting at the pharmacy for the RX for Diflucan that she was told would be callled in. documented in this encounter Plan of Treatment Not on filedocumented as of this encounter Visit Diagnoses Not on filedocumented in this encounter Care Teams Nursing Project Coordinator Relationship Specialty Start Date End Date Stephania Morin APRN PCP - General Nurse Practitioner - Family 02/22/[address] [address] documented as of this encounter
--- OUTSIDE RECORDS SUMMARY | 2022-01-23 23:52 | XMS_ITS | Encounter Summary ---
:1985 Author Organization [facility] Address [address] [place] [address] Care Team Providers Name Role Phone Stephania Morin APRN PATIENT NAVIGATOR Primary Care Provider Reason for Visit Reason Onset Date Comments Results 09/30/2013 Encounter Details Date Type Department Care Team Description 09/30/2013 Telephone [facility] Stephania Morin APRN Results [facility] [address] [facility] [address] [place] [id number] [phone] Social History Tobacco Use Types Packs/Day Years Used Date Never Smoker Smokeless Tobacco: Never Used Alcohol Use Standard Drinks/Week Comments Yes 0 (1 standard drink = 0.6 oz pure alcoho l) Sex Assigned at Date Recorded Not on file documented as of this encounter Miscellaneous Notes Telephone Encounter - Stephania Morin NP - 10/03/2013 2:42 PM CDT Spoke with patient about her lab results which were reviewed in detail. All questions answered to patients satisfaction. Stephania Morin RN, PATIENT NAVIGATOR Telephone Encounter - Brisa Maharaj - 10/03/2013 2:16 PM CDT Noa returned your call. [phone]. Thank you Telephone Encounter - Stephania Morin NP - 10/03/2013 9:38 AM CDT Left message for patient to return my call. Stephania Morin RN, PATIENT NAVIGATOR Telephone Encounter - Stephania Morin NP - 09/30/2013 7:02 PM CDT Left message on patients voicemail for her to return my call. Stephania Morin RN, PATIENT NAVIGATOR Telephone Encounter - Nilam Min RN - 09/30/2013 12:24 PM CDT Patient called back and was given the information below. She would like to speak directly with the provider. Informed it maybe later in the day when she gets a call. Nilam Min RN, [facility] Triage Telephone Encounter - Felisha Mesa RN - 09/30/2013 12:17 PM CDT Left a message to call back at [phone] and ask for Felisha in triage. Felisha Mesa RN Telephone Encounter - Brisa Maharaj - 09/30/2013 10:37 AM CDT Pt called to check if the results are available from the visit on 09-30. Please call cell [phone], anytime or leave message Thank you Telephone Encounter - Stephania Morin NP - 09/30/2013 9:45 AM CDT Please call patient and tell her: I do not yet Have results on your herpes test or your pap. All your other labs were normal. Your urine was likely a contaminated specimen. I'll let you know your other results as they become available. Stephania Morin RN, PATIENT NAVIGATOR Telephone Encounter - Zahraa Bradley - 09/30/2013 8:38 AM CDT Patient would like results of blood work. Please call. What is the best number to contact you? home [phone] What time works best to contact you? janene Bradley documented in this encounter Plan of Treatment Not on filedocumented as of this encounter Visit Diagnoses Not on filedocumented in this encounter Care Teams Stone Dresser Relationship Specialty Start Date End Date Stephania Morin APRN PCP - General Nurse Practitioner - Family 02/22/21 PATIENT NAVIGATOR [address] [place] [address] documented as of this encounter
--- OUTSIDE RECORDS SUMMARY | 2022-01-23 23:52 | XMS_ITS | Clinical Summary ---
:1985 Author Organization [facility] Address [address] [place] [address] Care Team Providers Name Role Phone Mer Hoang APRN, C.N.P., D.N.P. Primary Care Provider Source Comments Patient records contain information from all sites at [facility]. For routine questions regarding patient records, call [phone] during business hours, M-F 8:00 AM - 5:00 PM Central Time. Record requests for emergency care only can be directed to [phone] at any time.[facility] Allergies Active Allergy Reactions Severity Noted Date Comments Clindamycin Myalgia Low 12/06/2016 Diphenhydramine Cough, Shortness of High 04/26/2021 Patie nt c/o sensation breath of choking and inability to ca tch her breath causing a severe coughing episode followi ng saline IV flush (about 3-4cc) after IV Benadryl 50mg. Tachy during that up to 160s. Anxious a nd emotional. Left arm feels stiff and painful after t his (arm IV is in). She has tolerated B enadryl in the past, , patient reports . Propranolol Hypotension Medium 02/14/2021 Miconazole Rash Low 09/28/2013 Prochlorperazine Anxiety Low 02/23/2021 Suture (Absorbable) Other (see comments) 04/09/2019 dissolvable stitches dont dissolve Glycolic Acid Other (see comments) Low 03/17/2017 Reacti on to vicryl suture with sut ure granuloma forma tion. Lactic Acid Rash Low 12/05/2016 Tioconazole Itching 09/04/2014 Redness Medications Medication Sig Dispensed Refills Start End Date Status Date CHOLECALCIFEROL, Take 1 tablet 0 Active VITAMIN D3, by mouth 7 (VITAMIN D3 ORAL) daily. PNV NO.95/FERROUS Take 1 capsule 0 Active FUM/FOLIC AC by mouth 7 ( daily. MULTIVITAMINS ORAL) sennosides-docusate 8.6-50 tablets 0 Active sodium (SENOKOT-S) as needed. 9 8.6-50 mg per tablet ibuprofen 600 mg as 0 Active (ADVIL,MOTRIN) 600 needed. 1 mg tablet acetaminophen Take 650 mg by 0 A ctive (TYLENOL) 325 mg mouth as 9 tablet needed. ondansetron ODT as needed. 0 Act salma (ZOFRAN-ODT) 4 mg 1 disintegrating tablet naproxen (NAPROSYN) Take one 20 tablet 5 Active 500 mg tablet tablet (500 1 mg) by mouth at onset of headache, may repeat in 8 hours, no more than 2 per day or 5 per week. DULoxetine Take 1 capsule 90 capsule 3 Act salma (CYMBALTA) [address] (20 mg total) 1 capsule by mouth daily. aspirin-acetaminoph Take 1-2 0 Active en-caffeine tablets by (EXCEDRIN MIGRAINE) mouth. 250-250-65 mg per tablet verapamiL (CALAN) 1 tab qPM for 100 tablet 12 Active 80 mg tablet 1 week. If 2 symptoms not better, increase every week by 1 tab daily as needed per med sched to max of 1 tab TID. promethazine Take 1 tablet 30 tablet 3 Act salma (PHENERGAN) 25 mg (25 mg total) 2 tablet by mouth every 6 (six) hours as needed for nausea (or rescue therapy for severe headache). Limit: 9 days/month. eletriptan (RELPAX) Treat with 12 tablet 3 Active 40 mg tablet eletriptan 2 (Relpax) 40 mg at onset of severe headache. May repeat one time after 2 hours if needed. Limit: 9 days/month. DULoxetine Take 1 capsule 90 capsule 3 Act salma (CYMBALTA) [address] (60 mg total) 2 capsule by mouth daily. hydrOXYzine TAKE 1 TABLET 30 tablet 0 Acti ve (ATARAX) 25 mg (25 MG) BY 2 tablet MOUTH EVERY 6 HOURS NEEDED FOR ANXIETY clonazePAM Take 1 tablet 30 tablet 0 01/25/20 Activ e (KlonoPIN) 1 mg (1 mg total) 2 22 tablet by mouth as needed for seizures. citalopram (CeleXA) Take 1 tablet 30 tablet 0 Discontinued 10 mg tablet (10 mg total) 1 21 by mouth daily. clonazePAM Take 1 tablet 30 tablet 0 12/26/19 Disco ntinued (KlonoPIN) 1 mg (1 mg total) 1 22 ( Reorder) tablet by mouth daily. 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 Cryotherapy x4 (last 04/30/16) to wart on R heel Delivery Vaginal Normal Spontaneous 08/11/2015 Other Abnormal Findings On Screening Of [facility] er 08/10/2015 Other Specified Related Conditions Unspecifi ed Trimester 06/21/2015 Other Specified Diseases And Conditions Complicating P regnancy 05/24/2015 Dysuria 12/05/2013 Overweight Body Mass Index 25-29.9 Adult 09/28/2013 Edentulism Complete 12/06/2008 Overview: Formatting of this note might be differe nt from the original. LW Onset: September2008 ; Teeth Loss Extraction Headache Unspecified 12/06/2008 Overview: Formatting of this note might be differe nt from the original. LW Modifier: resolved after wisdom teeth removed Encounters Date Type Specialty Care Team Description 01/08/2022 Nurse Triage Family Medicine Nayan Jones, R.N. M edication Question 12/25/2021 Refill Family Medicine Therese Lock P.A.-C., Med Refill P.A. 11/04/2021 Orders Only Brandan Ferreira M.D. from Last 3 Months Immunizations Name Administration Dates Next Due DTaP (Infanrix, Tripedia) 01/17/1999, 11/11/1989, 03/24/1988 , 1987 Hib (PRP-T) (ACTHIB, HIBERIX) 05/06/1989 IPV 10/24/1998, 11/11/1989, 03/24/1988 Influenza TIV (IM) 01/27/2012 Influenza, Unspecified 01/29/2016, 04/03/2015 MMR 11/24/1988 PPD Test 06/04/2009, 06/04/2009 Tdap 05/30/2019, 05/24/2015, 11/25/2010, 06/14/2010 Tuberculin Skin Test, Unspecified 06/04/2009 CHRISTIANO 09/10/2010 influenza LAIV (Nasal) (2 years 02/04/2014 through 49 years) influenza vaccine quad 01/29/2016, 02/04/2014 (FLUZONE/FLUARIX) (6 months and older)(PF) Family History Medical History Relation Name Comments Diabetes Brother Hemanth Anxiety disorder Mother Mom Relation Name Status Comments Brother Hemanth Mother Mom Social History Tobacco Use Types Packs/Day Years Used Date Smoking Tobacco: Never Smokeless Tobacco: Never Tobacco Cessation: Counseling Given: No Alcohol Use Standard Drinks/Week Comments Not Currently [...] or relatives? How often do you attend zoroastrianism or More than 4 times per year 05/31/2021 sikhism services? Do you belong to any clubs or Yes 05/31/2021 organizations such as zoroastrianism groups, unions, fraternal or athletic groups, or [...] place to sleep or slept in a care home (including now)? Education Answer Date Recorded What is the highest level of school Bachelor's degree (e.g., BA, AB, 03/21/2021 you have completed or the highest BS) degree you have received? Sex Assigned at Date Recorded Female 01/23/2021 7:15 AM CDT Last Filed Vital Signs Vital Sign Reading Time Taken Comments Blood Pressure 121/83 09/12/2021 11:33 AM CDT Pulse 72 09/12/2021 11:33 AM CDT Temperature 36.4 ??C (97.5 ??F) 09/12/2021 11:33 AM CDT Respiratory Rate 16 03/08/2021 3:37 PM BEADER TENDER Oxygen Saturation 99% 09/12/2021 11:33 AM CDT Inhaled Oxygen Concentration - - Weight 81.4 kg (179 lb 7.3 oz) 09/12/2021 11:33 AM CDT Height 162 cm (5' 3.78) 09/12/2021 11:33 AM CDT Body Mass Index 31.02 09/12/2021 11:33 AM CDT Plan of Treatment Health Maintenance Due Date Last Done Comments Cervical Cancer Screening 1985 HIV Screening 1985 Hepatitis B Vaccines (1 of 1985 3 - 3-dose series) Hepatitis C Screening 1985 COVID-19 Vaccine (3 - 12/11/2021 10/16/2021, 09/17/2021 Booster for Pfizer series) Influenza Vaccine (#1) 2022 01/29/2016, 01/29/2016, 04/03/2015, Additional history exists DTaP,Tdap,and Td Vaccines 05/30/2029 05/30/2019, 05/24/2015 , (9 - Td or Tdap) 11/25/2010, Additional history exists Depression Screening Completed 06/24/2021 (Annual PHQ-2) Pneumococcal vaccine (0-64 Aged Out No lo nger eligible years) based on patient 's age to complete this topic Insurance Payer Benefit Plan / Subscriber ID Effective Phone Address T ype Group Dates [facility] [id number] 2016-Pre [phone] [address] PPO DISTINCTIONS III sent [address] [place] [address] Care Teams Cobol Developer Relationship Specialty Start Date End Date Mer Hoang APRN, C.N.P., PCP - General Family Medicine D.N.P. [address] [address]
--- OUTSIDE RECORDS SUMMARY | 2022-01-23 23:52 | XMS_ITS | Encounter Summary ---
:1985 Author Organization [facility] Address [address] [place] [address] Care Team Providers Name Role Phone Mer Hoang APRN, C.N.P., D.N.P. Primary Care Provider Reason for Visit Reason Comments Medication Question Encounter Details Date Type Department Care Team Description 01/08/2022 Nurse Triage Department of [facility] Nayan Jones M edication Question Medicine, [facility], in [place] [address] [place] [address] [place], [place] [phone] (Work) [phone] Social History Tobacco Use Types Packs/Day Years [...] or relatives? How often do you attend voodoo or More than 4 times per year 05/31/2021 scientologist services? Do you belong to any clubs or Yes 05/31/2021 organizations such as voodoo groups, unions, fraternal or athletic groups, or school groups? How often do you attend meetings of the More than 4 times r year 05/31/2021 clubs or organizations you [...] place to sleep or slept in a intermediate (including now)? Education Answer Date Recorded What is the highest level of school Bachelor's degree (e.g., BA, AB, 03/21/2021 you have completed or the highest BS) degree you have received? Sex Assigned at Date Recorded Female 01/23/2021 7:15 AM CDT documented as of this encounter Miscellaneous Notes Telephone Encounter - Nayan Jones R.N. - 01/08/2022 11:02 AM CDT Chief Complaint / Reason for Call Patient is a 36 y.o. female calling regarding Medication Question. Assessment Concern: Noa calls in today with questions regarding very specific questions about her Cymbalta.Patient has stopped her Cymbalta cold turkey 6 days ago and continues to have withdrawal symptoms of, stomach issues, headaches, insomnia and brain fog. Patient requesting medical advice. Encouraged patient to message pcp on the portal for specific answers to her questions. The recommended disposition is Call PCP When Office is Open. Reason for Disposition [1] Caller has NON-URGENT medicine question about med that PCP prescribed AND [2] triager unable toanswer question Protocols used: Medication Question [id number] Care Advice Patient/Caregiver understands and will follow care advice?: Yes, able to teach back CALL PCP WHEN OFFICE IS OPEN: * You need to discuss this with your doctor (or GEODESIST/PA) within the next few days. * Call the office when it is open. CALL BACK IF: * You have more questions or concerns * You become worse CARE ADVICE given per Medication Question Call (Adult) guideline. documented in this encounter Plan of Treatment Not on filedocumented as of this encounter Visit Diagnoses Not on filedocumented in this encounter Additional Health Concerns Assessment Noted Time PHQ-9 Depression Total Score: 8 06/24/2021 3:34 PM SUPERVISOR COMMUNICATIONS AND SIGNALS documented as of this encounter Care Teams Director Business Management Relationship Specialty Start Date End Date Mer Hoang APRN, C.N.P., PCP - General Family Medicine D.N.P. [address] [phone] documented as of this encounter
--- OUTSIDE RECORDS SUMMARY | 2022-01-23 23:52 | XMS_ITS | Encounter Summary ---
:1985 Author Organization [facility] Address [address] [place] [address] Care Team Providers Name Role Phone Stephania Morin APRN GAS COMPRESSOR TURBINE OPERATOR Primary Care Provider Reason for Visit Reason Onset Date Comments Patient Inquiry 09/26/2013 Encounter Details Date Type Department Care Team Description 09/26/2013 Telephone [facility] Stephania Morin APRN Patient Inquiry [facility] [address] [facility] [address] [place] [id number] [phone] Social History Tobacco Use Types Packs/Day Years Used Date Never Smoker Smokeless Tobacco: Never Used Alcohol Use Standard Drinks/Week Comments Yes 0 (1 standard drink = 0.6 oz pure alcoho l) Sex Assigned at Date Recorded Not on file documented as of this encounter Miscellaneous Notes Telephone Encounter - Felisha Mesa RN - 09/26/2013 12:16 PM CDT Went to urgent care last night. Given Medication yet symptoms persist. Scheduled patient with Stephania Morin NP today. Felisha Mesa RN Telephone Encounter - Olu Barnes - 09/26/2013 9:11 AM CDT Pt seen at a different site and states she was treated for a yeast infection though her wet prep came back negative. States she was told that though the results come back negative, it won't always show up on a wet prep. Pt has all the signs and symptoms and states she's had this twice since last year. Has a few questions for Susi Morin. Pls advise. Thank you What is the best number to contact you? Home [phone] What time works best to contact you? anytime Olu Barnes documented in this encounter Plan of Treatment Not on filedocumented as of this encounter Visit Diagnoses Not on filedocumented in this encounter Care Teams Pathology Laboratory Aides Teacher Relationship Specialty Start Date End Date Stephania Morin APRN PCP - General Nurse Practitioner - Family 02/22/[address] [address] documented as of this encounter
--- OUTSIDE RECORDS SUMMARY | 2022-01-23 23:52 | XMS_ITS | Encounter Summary ---
:1985 Author Organization [facility] Address [address] [place] [address] Care Team Providers Name Role Phone Stephania Morin APRN ROLL CLEANER Primary Care Provider [phone] Encounter Details Date Type Department Care Team Description 07/05/2016 Virtual Visit [facility] Pedro West PA-C [address] [place] [address] [address] [place] [address] [place] [address] [phone] Social History Tobacco Use Types Packs/Day Years Used Date Never Smoker Smokeless Tobacco: Never Used Alcohol Use Standard Drinks/Week Comments Yes 0 (1 standard drink = 0.6 oz pure alcoho l) Sex Assigned at Date Recorded Not on file documented as of this encounter Progress Notes Pedro West PA-C - 07/05/2016 4:38 PM CST Date: Clinician: Pedro West Clinician Patient: Noa Franco Patient : 1985 Patient Address: [address] [place] [address] Patient Visit Protocol: Yeast infection Patient Summary: Noa is a 30 year old ( : 1985 ) female who initiated a Zip for a presumed vaginal yeast infection. When asked the question Do you have a [facility] primary care physician?, Noa responded Yes. 0-5 days ago she began noticing vaginal discharge, vaginal pruritus, and perivulvar pruritus . She denies having perivulvar rash, fever, and abdominal pain or lesions. She hashad one (1) occurrence in the past year and the current symptoms are similar to previous yeast infections. She has not tried to treat her current symptoms with any medication. She has a more than normal amount of chunky (like cottage cheese), clear or white, thick, malodorous discharge. She denies taking antibiotics in the past 2 weeks. She prefers a fluconazole (Diflucan) Pill. She states she is not and is . She has menstruated in the past month. She denies risk factors for sexually transmitted infections. She does NOT smoke or use smokeless tobacco. MEDICATIONS: No current medications , ALLERGIES: NKDA Clinician Response: Dear Noa, Based on the information you have provided, you likely have a vaginal yeast infection which is a common infection of the vagina caused by a fungus. I am prescribing: Fluconazole (Diflucan) 150 mg oral tablet to treat your yeast infection. Swallow one (1) tablet as a single dose. There are no refills with this prescription. While you have yeast infection symptoms, do the following: Avoid irritants such as scented bath products, tampons, pads, or vaginal sprays and powders. Avoid douching. Wear cotton underwear and if you are comfortable doing so, do not wear underwear to bed. Avoid hot tubs and whirlpool spas. Most women notice improvement in their symptoms within 1-2 days after starting treatment with complete clearing in 5-7 days. If your symptoms have not improved in 3 days or not resolved in 10 days, please schedule an appointment to see your primary healthcare administration intern for an evaluation as your symptoms may be caused by an infection other than yeast. Sometimes yeast infections can be associated with othervaginal infections or with sexually transmitted infections (STIs). If you think you may be at risk for a STI please be seen in a clinic. Diagnosis: Lynda Vulvovaginitis Diagnosis ICD: B37.3 Prescription: fluconazole (Diflucan) 150mg oral tablet 1 tablet, 1 days supply. Take one tablet by mouth one time a day for 1 day. Refills: 0, Refill as needed: no, Allow substitutions: yes Prescription Sent At: July 05 16:43:07, 2017 Pharmacy: [facility] [id number] - - [id number] [facility] BRIGIDAEnriqueta JuanCHAPITOHIEN [id number] DROPPER documented in this encounter Plan of Treatment Not on filedocumented as of this encounter Visit Diagnoses Not on filedocumented in this encounter Care Teams Manager Alliance Relationship Specialty Start Date End Date Stephania Morin APRN PCP - General Nurse Practitioner - Family 02/22/[address] [address] documented as of this encounter
--- OUTSIDE RECORDS SUMMARY | 2022-01-23 23:52 | XMS_ITS | Encounter Summary ---
:1985 Author Organization [facility] Address [address] [place] [address] Care Team Providers Name Role Phone Stephania Morin APRN POURER OFF Primary Care Provider [phone] Reason for Visit Reason Onset Date Comments Vaginal Problem 09/28/2013 Encounter Details Date Type Department Care Team Description 09/28/2013 Telephone [facility] Stephania Morin APRN Vaginal Problem [facility] [address] [facility] [place] [address] [place] [phone] Social History Tobacco Use Types Packs/Day Years Used Date Never Smoker Smokeless Tobacco: Never Used Alcohol Use Standard Drinks/Week Comments Yes 0 (1 standard drink = 0.6 oz pure alcoho l) Sex Assigned at Date Recorded Not on file documented as of this encounter Miscellaneous Notes Telephone Encounter - Stephania Morin NP - 09/29/2013 6:58 AM CDT Spoke with patient yesterday-she had increased vaginal pain after walking at the park this am, somewhat improved now. Advised her to do sitz bath, pat with warm washcloth after voiding Instead of wiping which causes pain, OIK to take Tyelnol or Ibuprofen prn pain. After Further discussion, patient stated that her has a piercing on his penis, that she has a nickel allergy, and wonders if this could contribute to her pain. Instructed her not to have intercourse with Penis piercing in place as her allergy could be playing a part in her symptoms as well. She is to return to clinic if not improved, new, or worsening symptoms. 2 weeks. Telephone Encounter - Kaylan Coon - 09/28/2013 3:17 PM CDT Patient called and said that she was returning your call. Telephone Encounter - Olu Barnes - 09/28/2013 1:53 PM CDT Pt seen this morning for yeast infection symptoms. States nothing was found and pt came home. After a walk at the park, pt states the pain came back and it was excruciating and burning. Pt states no matter what she does, she cant relieve the pain. Pls advise. Thank you What is the best number to contact you? Home [phone] What time works best to contact you? anytime Olu Barnes documented in this encounter Plan of Treatment Not on filedocumented as of this encounter Visit Diagnoses Not on filedocumented in this encounter Care Teams Supervisor Pipe Joints Relationship Specialty Start Date End Date Stephania Morin APRN PCP - General Nurse Practitioner - Family 02/22/[address] [address] documented as of this encounter
--- OUTSIDE RECORDS SUMMARY | 2022-01-23 23:52 | XMS_ITS | Encounter Summary ---
:1985 Author Organization [facility] Address [address] [place] [address] Care Team Providers Name Role Phone Stephania Morin APRN, CNP Primary Care Provider [phone] Reason for Visit Reason Onset Date Comments Nurse Advice Line 11/20/2012 Lab results 11/17/12 Encounter Details Date Type Department Care Team Description 11/20/2012 Telephone [facility] Stephania Morin, Nurs e Advice Line (Lab Clinic [place] APRN MALT LOADER results 11/17/12) [address] [facility] [address] [place] [address] (Wo rk) Social History Tobacco Use Types Packs/Day Years Used Date Never Smoker Smokeless Tobacco: Never Used Alcohol Use Standard Drinks/Week Comments Yes 0 (1 standard drink = 0.6 oz pure alcoho l) Sex Assigned at Date Recorded Not on file documented as of this encounter Miscellaneous Notes Telephone Encounter - Meera Neves - 11/20/2012 10:36 AM CDT Clinic Action Needed:None Reason for Call:Patient is requesting lab results from 11/16/12. Reviewed letter dated 11/17/12 in [facility] LAB RESULTS: The results of your recent vaginal cultures were NORMAL. If you have any further questions or problems, please contact our office. Thank you for allowing me to Participate in your care. Routed to:Not Routed Meera Neves RN [facility] Nurse Advisors documented in this encounter Plan of Treatment Not on filedocumented as of this encounter Visit Diagnoses Not on filedocumented in this encounter Care Teams Slipman Relationship Specialty Start Date End Date Stephania Morin APRN PCP - General Nurse Practitioner - Family 02/22/[address] [address] documented as of this encounter
--- OUTSIDE RECORDS SUMMARY | 2022-01-23 23:52 | XMS_ITS | Encounter Summary ---
:1985 Author Organization [facility] Address [address] [place] [address] Care Team Providers Name Role Phone Stephania Morin APRN, CNP Primary Care Provider [phone] Encounter Details Date Type Department Care Team Description 12/01/2013 Virtual Visit [facility] up Genevieve Gomez APRN SHIPPING SERVICES SALES REPRESENTATIVE [address] [place] [address] [address] [place] [address] [phone] Social History Tobacco Use Types Packs/Day Years Used Date Never Assessed Sex Assigned at Date Recorded Not on file documented as of this encounter Progress Notes Genevieve Gomez, OFFICE WORKFORCE PLANNER - 12/01/2013 6:45 PM CDT Date: 12-01-2013 06:45:28 Clinician: Genevieve Gomez Clinician NPI: [id number] Patient: Noa Franco Patient : 1985 Patient Address: [address] [place] [address] Patient Phone: [phone] Clinic Name: [facility] Visit Protocol: UTI Patient Summary: Noa is a 28 year old ( : 1985 ) female who initiated a Zip for a presumed bladder infection. When asked the question Do you have a [facility] primary care physician?, Noa responded No. Her symptoms began yesterday and consist of frequency, malaise, foul smelling urine, vaginal discharge, and urgency. She denies hesitation, dysuria, fever, urinary incontinence, abdominal pain, hematuria, flank pain, anorexia, chills, nausea, vomiting, and bladder spasms. She has not been hospitalized, taken antibiotics or had a catheter in the past month. She has menstruated in the past month. She denies risk factors for sexually transmitted disease. Symptom Details Urinary Frequency: several times each hour Vaginal Discharge: She notes a scant amount amount of thin , non-odorous , clear or white discharge. Previous UTI: Her last UTI was several years ago and her current symptoms are similar to the previous UTI symptoms She took an antibiotic but does not remember which one for her last infection Noa has no medication preference. She is not and denies or . She does NOT smoke or use smokeless tobacco. CURRENT MEDICATIONS: No current medications ALLERGIES: NKDA Clinician Response: Dear Noa , Based on the information you have provided, you likely have a bladder infection, also called an acute urinary tract infection (UTI). To treat your infection, I am prescribing: Bactrim/Septra DS. Swallow one (1) tablet twice a day for 3 days to treat your bladder infection. Continue taking the tablets even if you feel better before all the medicine is gone. There is no refill with this prescription. To treat your discomfort with urination, I am recommending an wkyk-srq-xnmwnzu medication called Phenazopyridine (Pyridium). Swallow one (1) tablet three times a day for 2 days. Take the pills after a meal. You will notice that Pyridium adds an orange/red color to yoururine which may stain fabric. If your skin or the whites of your eyes develop a yellowish color, it may indicate that your kidneys are not correctly removing the medication. Although this is uncommon, stop using the Pyridium and immediately contact your clinic if this happens. To help treat your current UTI and prevent future occurrences remember to: Drink 8-10, 8-ounce glasses of water daily. Urinate after sexual intercourse. Wipe front to back after using the bathroom. Drinking cranberry juice also may reduce the risk of another bladder infection by preventing bacteria from sticking to your bladder wall. It is common for women to develop a yeast infection while taking antibiotics. If you notice yeast infection symptoms, you can use [facility] for treatment. Some people develop allergies to antibiotics. If you notice a new rash, significant swelling or difficulty breathing, stop the medicine immed iately and go into a clinic for physical evaluation. You should visit a clinic for a follow-up visitif your symptoms do not improve or if you experience another urinary tract infection soon after completing this treatment. If you become during this course of treatment with medication, stop taking the medication and contact your primary care provider. Diagnosis: Acute Uncomplicated Bladder Infection Diagnosis ICD: 599.0 Additional Clinician Notes: Prescription: sulfamethoxazole-TMP DS (Bactrim DS) 800-160mg oral tablet 6 tablets, 3 days supply. Take one tablet by mouth two times a day for 3 days. Refills: 0, Refill as needed: no, Allow substitutions: yes documented in this encounter Plan of Treatment Not on filedocumented as of this encounter Visit Diagnoses Not on filedocumented in this encounter Care Teams Catalogue And Special Products Manager Relationship Specialty Start Date End Date Stephania Morin APRN PCP - General Nurse Practitioner - Family 02/22/[address] [address] documented as of this encounter
--- OUTSIDE RECORDS SUMMARY | 2022-01-23 23:52 | XMS_ITS | Encounter Summary ---
:1985 Author Organization [facility] Address [address] [place] [address] Care Team Providers Name Role Phone Brandan Ferreira M.D. Primary Care Provider Reason for Referral Outpatient (Routine) - Authorized Specialty Diagnoses / Procedures Referred By Contact Refer red To Contact Diagnoses Migraine Headache Rui Rogel M.D. [facility] Procedures Botox for Chronic Migraine FL INJECTION,ONABOTULINUMTOXINA FL CHEMODENERV FACIAL TRIGEM JADE 200 units every 12 weeks [address] [place] [address] Referral ID Status Reason Start Date Expiration Date Visits V isits Requested Authorized [id number] Authorized 04/01/2021 04/01/2022 12 3 Reason for Visit Outpatient (Routine) - Authorized Specialty Diagnoses / Procedures Referred By Contact Refer red To Contact Diagnoses Migraine Headache Chronic Rui Hernandez M.D. [facility] Procedures Botox for Chronic Migraine FL INJECTION,ONABOTULINUMTOXINA FL CHEMODENERV FACIAL TRIGEM JADE 200 units every 12 weeks [address] [place] [address] Referral ID Status Reason Start Date Expiration Date Visits V isits Requested Authorized [id number] Authorized 04/01/2021 04/01/2022 12 3 Encounter Details Date Type Department Care Team Description 10/10/2021 Hospital Encounter Department of Rui Hernandez M.D. [address] [place] [phone] Migraine Headache Neurology in Leona Vaca M.D. [address] [place] [phone] Chronic [place], [place] [address] [place] [phone] Social History Tobacco Use Types Packs/Day Years [...] or relatives? How often do you attend episcopal or More than 4 times per year 05/31/2021 yazdanism services? Do you belong to any clubs or Yes 05/31/2021 organizations such as episcopal groups, unions, fraternal or athletic groups, or [...] place to sleep or slept in a custodial (including now)? Education Answer Date Recorded What is the highest level of school Bachelor's degree (e.g., BA, AB, 03/21/2021 you have completed or the highest BS) degree you have received? Sex Assigned at Date Recorded Female 01/23/2021 7:15 AM CDT documented as of this encounter Medications at Time of Discharge Medication Sig Dispensed Refills Start Date End Date acetaminophen (TYLENOL) Take 650 mg by mouth 0 325 mg tablet as needed. mltkdye-hinxrchcnazdf-un Take 1-2 tablets by 0 ffeine (EXCEDRIN mouth. MIGRAINE) 250-250-65 mg per tablet CHOLECALCIFEROL, VITAMIN Take 1 tablet by 0 11/05 D3, (VITAMIN D3 ORAL) mouth daily. DULoxetine (CYMBALTA) 20 Take 1 capsule ([address] capsule mg total) by mouth daily. DULoxetine (CYMBALTA) 60 Take 1 capsule ([address] capsule mg total) by mouth daily. eletriptan (RELPAX) 40 Treat with 12 tablet 3 06/28/2021 mg tablet eletriptan (Relpax) 40 mg at onset of severe headache. May repeat one time after 2 hours if needed. Limit: 9 days/month. hydrOXYzine (ATARAX) 25 TAKE 1 TABLET (25 30 tablet 0 10/08 mg tablet MG) BY MOUTH EVERY 6 HOURS NEEDED FOR ANXIETY ibuprofen (ADVIL,MOTRIN) 600 mg as needed. 0 12/27 600 mg tablet naproxen (NAPROSYN) 500 Take one tablet (500 20 tablet 5 mg tablet mg) by mouth at onset of headache, may repeat in 8 hours, no more than 2 per day or 5 per week. ondansetron ODT as needed. 0 02/09/2021 (ZOFRAN-ODT) 4 mg disintegrating tablet PNV NO.95/FERROUS Take 1 capsule by 0 11/05/2016 FUM/FOLIC AC ( mouth daily. MULTIVITAMINS ORAL) promethazine (PHENERGAN) Take 1 tablet (25 mg 30 tablet 3 0 06/24/2021 25 mg tablet total) by mouth every 6 (six) hours as needed for nausea (or rescue therapy for severe headache). Limit: 9 days/month. sennosides-docusate 8.6-50 tablets as 0 9 sodium (SENOKOT-S) needed. 8.6-50 mg per tablet verapamiL (CALAN) 80 mg 1 tab qPM for 1 100 tablet 022 tablet week. If symptoms not better, increase every week by 1 tab daily as needed per med sched to max of 1 tab TID. clonazePAM (KlonoPIN) 1 Take 1 tablet (1 mg 30 tablet 0 12/25/2021 mg tablet total) by mouth daily. documented as of this encounter Procedure Notes Leona Vaca M.D. - 10/10/2021 1:30 PM CDTAssociated Order(s): Botox for Chronic Migraine Pre-Procedure Diagnose(s): Migraine Headache Chronic Post-Procedure Diagnose(s): Migraine Headache Chronic Botox for Chronic Migraine Date/Time: 10/10/2021 1:33 PM Performed by: Leona Vaca M.D. Authorized by: Rui Hernandez M.D. Care team members present 1. Leona Vaca M.D. 3. Tomy Garcia L.PClarisaNClarisa PROCEDURE DETAILS Pre-procedure pain score: 5/10 Injection of: 100 Units onabotulinumtoxinA 100 unit; 50 Units onabotulinumtoxinA 100 unit Needle gauge: 30 Needle length: 0.5 in Injection site details Concrete Building Assembler / Procerus muscle(s): 5 units into the left dye range tender muscle, 5 units into the right dye range tender muscle and 5 units into the procerus muscle (15 units total). Superior Frontalis muscle(s): 5 units into the left superior frontalis muscle and 5 units into the right superior frontalis muscle (2 injection sites per muscle) (10 units total). Temporalis muscle(s): 25 units into the left temporalis muscle and 25 units into the right temporalis muscle (4 injection sites per muscle) (50 units total). Splenius Capitis muscle(s): 12.5 units into the left splenius capitis muscle and 12.5 units into theright splenius capitis muscle (2 injection sites per muscle) (25 units total). Occipitalis muscle(s): 25 units into the left occipitalis muscle and 25 units into the right occipitalis muscle (4 injection sites per muscle) (50 units total). Trapezius muscle(s): 25 units into the left trapezius muscle and 25 units into the right trapezius muscle (3 injection sites per muscle) (50 units total). Total units wasted: 0 Total units injected: 200 CONSENT Consent obtained: written UNIVERSAL PROTOCOL All relevant documentation and testing were reviewed and available. All required blood products, implants, devices and or special equipment were made available as applicable. Pre-procedure verificationwas conducted and the correct site was marked if required. A fire risk assessment was done as applicable. The procedural time-out to verify correct patient, correct side/site, and procedure was conducted prior to performing the procedure and confirmed in a procedural pause. PRE-PROCEDURE DETAILS Reason for injections: chronic migraine Appropriate hand hygiene, gown, cap, mask, protective eyewear, sterile gloves, skin preparation, sterile drape, and strict aseptic technique were utilized as applicable for the procedure: yes Site preparation: alcohol Clinical history: Patient was made aware that they may be responsible for any and all costs associated with injection of Botulinum Toxin Type A that is not covered by a third republican. Prior to treatment with Botox, the frequency of headaches was greater than 15 days per month and with significant impairment in the quality of life. Please see the initial Botox injection note and Headache consultation note regarding specific details of the headache history prior to the start of treatment. Any other daily migraine prophylactic treatments taken over the last 3 months: Duloxetine (Cymbalta)and verapamil (Vitamin D3) Headache frequency when Botox is most effective (middle month in between rounds). Headache days per month: 8 days Severe headache days per month: 4 days Wearing off phenomenon prior to this round of Botox: yes Duration: 1 weeks Patient finds Botox treatment helpful and wants to repeat the treatment? yes Patient had migraine headache frequency reduction by at least 7 days per month compared to pretreatment level, or migraine headache duration reduction of at least 100 hours per month compared to pretreatment level? yes POST-PROCEDURE DETAILS Procedure completed successfully: yes Complications: no apparent complications Comments Assisted by, and closely supervised, Dr. Felipe PLAN: The patient has had good response for treatment of their chronic migraine with onabotulinumtoxin A injections at 200 units every 12 weeks in that the patient had migraine headache frequency reduction by at least 7 days per month compared to pretreatment level, or migraine headache duration reduction of at least 100 hours per month compared to pretreatment level. Therefore, I have encouraged the patient to schedule their next round of injections 200 units in 12 weeks. documented in this encounter Plan of Treatment Not on filedocumented as of this encounter Procedures Procedure Name Priority Date/Time Associated Comments Diagnosis FL CHEMODENERV FACIAL Routine 10/10/2021 1:33 PM Migraine Head ache Results for this TRIGEM JADE CDT Chronic procedure are i n the results section. documented in this encounter Results FL CHEMODENERV FACIAL TRIGEM JADE (10/10/2021 1:33 PM CDT) Narrative [facility] - 10/10/2021 1:33 PM CDT Leona Vaca M.D. ? 10/10/2021 ??1:53 PM Botox for Chronic Migraine Date/Time: 10/10/2021 1:33 PM Performed by: Leona Vaca M.D. Authorized by: Rui Hernandez M.D. Care team members present 1. Leona Vaca M.D. 3. Tomy Garcia L.P.N. PROCEDURE DETAILS ?? Pre-procedure pain score: 5/10 Injection of: 100 Units onabotulinumtoxi nA 100 unit; 50 Units onabotulinumtoxinA 100 unit Needle gauge: 30 Needle length: 0.5 in Injection site details Concrete Building Assembler / Procerus muscle(s): 5 units into the left dye range tender muscle, 5 units into the right dye range tender muscle and 5 units into the procerus muscle ??(15 units total). Superior Frontalis muscle(s): 5 units in to the left superior frontalis muscle and 5 units into the right superi or frontalis muscle ?? (2 injection sites per muscle) (10 units total). Temporalis muscle(s): 25 units into the left temporalis muscle and 25 units into the right temporalis muscle ? ? (4 injection sites per muscle) ?? (50 units total). Splenius Capitis muscle(s): 12.5 units i nto the left splenius capitis muscle and 12.5 units into the right spl enius capitis muscle ?? (2 injection sites per muscle) ??(25 units total). Occipitalis muscle(s): 25 units into the left occipitalis muscle and 25 units into the right occipitalis muscle ??(4 injection sites per muscle) ?? (50 units total). Trapezius muscle(s): 25 units into the l eft trapezius muscle and 25 units into the right trapezius muscle ??(3 inj ection sites per muscle) ??(50 units total). Total units wasted: 0 Total units injected: 200 CONSENT Consent obtained: written UNIVERSAL PROTOCOL All relevant documentation and testing w ere reviewed and available. All required blood products, implants, devic es and or special equipment were made available as applicable. Pre-proced ure verification was conducted and the correct site was marked if required. A fire risk assessment was done as applicable. The procedural time-out t o verify correct patient, correct side/site, and procedure was conducted p rior to performing the procedure and confirmed in a procedural pause. PRE-PROCEDURE DETAILS ?? Reason for injections: chronic migraine Appropriate hand hygiene, gown, cap, mas k, protective eyewear, sterile gloves, skin preparation, sterile drape, and strict aseptic technique were utilized as applicable for the procedure : yes Site preparation: alcohol Clinical history: Patient was made aware that they may be responsible for any and all costs associated with inject ion of Botulinum Toxin Type A that is not covered by a third republican. ?? Prior to treatment with Botox, the frequ ency of headaches was greater than 15 days per month and with significant i mpairment in the quality of life. ?? Please see the initial Botox injection n ote and Headache consultation note regarding specific details of the headac he history prior to the start of treatment. Any other daily migraine prophylactic tr eatments taken over the last 3 months: ??Duloxetine (Cymbalta) and vera pamil (Vitamin D3) Headache frequency when Botox is most ef fective (middle month in between rounds). Headache days per month: 8 days Severe headache days per month: 4 days Wearing off phenomenon prior to this rou nd of Botox: yes Duration: 1 weeks Patient finds Botox treatment helpful an d wants to repeat the treatment? yes Patient had migraine headache frequency reduction by at least 7 days per month compared to pretreatment level, or migraine headache duration reduction of at least 100 hours per wali h compared to pretreatment level? yes POST-PROCEDURE DETAILS ?? Procedure completed successfully: yes ?? Complications: no apparent complications Comments Assisted by, and closely supervised, Dr. Felipe PLAN: The patient has had good response for tr eatment of their chronic migraine with onabotulinumtoxin A injections at 2 00 units every 12 weeks in that the patient had migraine headache freque ncy reduction by at least 7 days per month compared to pretreatment level , or migraine headache duration reduction of at least 100 hours per wali h compared to pretreatment level. ?? Therefore, I have encouraged the patient to schedule their next round of injections 200 units in 12 weeks. Rui Hernandez M.D. NEUROLOGY ORDERABLES Performing Organization Address City/State/ZIP Code Phon e Number [facility] NA documented in this encounter Visit Diagnoses Diagnosis Migraine Headache Chronic documented in this encounter Administered Medications Inactive Administered Medications - up to 3 most recent administrations Medication Order MAR Action Action Date Dose Rate Site onabotulinumtoxinA injection 100 Given 10/10/2021 1:33 PM 100 Un its Units (BOTOX) CDT 100 Units, injection, One-Time Injection, Starting on [place] 10/10/21 at 1333, For 1 dose onabotulinumtoxinA injection 50 Units Given 10/10/2021 1:33 PM C DT 50 Units (BOTOX) 50 Units, injection, One-Time Injection, Starting on [place] 10/10/21 at 1333, For 1 dose documented in this encounter Additional Health Concerns Assessment Noted Time PHQ-9 Depression Total Score: 8 06/24/2021 3:34 PM BENZENE WORKER documented as of this encounter Care Teams Cnc Maintenance Mechanic Relationship Specialty Start Date End Date Brandan Ferreira M.D. PCP - General 09/27/21 12/18/[id number] [phone] documented as of this encounter
--- OUTSIDE RECORDS SUMMARY | 2022-01-23 23:52 | XMS_ITS | Encounter Summary ---
:1985 Author Organization [facility] Address [address] [place] [address] Care Team Providers Name Role Phone Stephania Morin APRN, CNP Primary Care Provider Reason for Visit Reason Onset Date Comments Panel Management 08/12/2013 pap Encounter Details Date Type Department Care Team Description 08/12/2013 Telephone [facility] Stephania Morin [facility] [address] [facility] [address] [place] [id number] (Wo rk) Social History Tobacco Use Types Packs/Day Years Used Date Never Smoker Smokeless Tobacco: Never Used Alcohol Use Standard Drinks/Week Comments Yes 0 (1 standard drink = 0.6 oz pure alcoho l) Sex Assigned at Date Recorded Not on file documented as of this encounter Miscellaneous Notes Telephone Encounter - Carolyn Carrasquillo MA - 08/12/2013 12:09 PM CDT Panel Management Review Date of last visit with a [facility] provider: Patience on 11/16/12. Date of next visit with a [facility] provider: None. Problem List There is no problem list on file for this patient. Health Maintenance List Health Maintenance Topic Date Due ??? PAP SCREENING Q3 YR (SYSTEM ASSIGNED) 09/06/2008 ??? INFLUENZA VACCINE (SYSTEM ASSIGNED) 01/25/2013 ??? TETANUS IMMUNIZATION (SYSTEM ASSIGNED) 11/25/2020 For diabetic patients with hyperlipidemia, only choose diabetes. Patient has the following on her problem list: Composite cancer screening Chart review shows that [...] Summary: Patient is due/failing the following: PAP Action needed: Patient needs to do Pap Type of outreach: 08/12/13 Phone, left message for patient to call back. 08/15/13 left a 2nd message. Sent a letter. Carolyn Carrasquillo MA Questions for provider review: None Please indicate office visit, lab, MTM, or nurse appt if needed. Indicate fasting or not fasting. Carolyn Carrasquillo MA documented in this encounter Plan of Treatment Not on filedocumented as of this encounter Visit Diagnoses Not on filedocumented in this encounter Care Teams Lead Generation Specialist Relationship Specialty Start Date End Date Stephania Morin APRN PCP - General Nurse Practitioner - Family 02/22/[address] [address] documented as of this encounter
--- OUTSIDE RECORDS SUMMARY | 2022-01-23 23:53 | XMS_ITS | Encounter Summary ---
:1985 Author Organization [facility] Address [address] [place] [id number] Care Team Providers Name Role Phone Therese Lock P.A.-C., P.A. Primary Care Provider Unavaila ble Reason for Visit Physical Therapy (Routine) - Closed Specialty Diagnoses / Procedures Referred By Contact Refer red To Contact Diagnoses Migraine Headache Therese Lock P.A.-C., [facility] Procedures PT Evaluate and treat P.A. [address] [place] [address] Referral ID Status Reason Start Date Expiration Date Visits Requ ested Visits Authorized [id number] Closed 04/10/2021 04/10/2022 1 1 Encounter Details Date Type Department Care Team Description 05/01/2021 Comprehensive Visit Department of Therese Lock P.A .-C., P.A. Migraine Headache Rehabilitation Lizet Howe P.T. Services in [address] [phone] Social History Tobacco Use Types Packs/Day Years [...] or relatives? How often do you attend judaism or More than 4 times per year 05/31/2021 amish services? Do you belong to any clubs or Yes 05/31/2021 organizations such as judaism groups, unions, fraternal or athletic groups, or [...] place to sleep or slept in a jail (including now)? Education Answer Date Recorded What is the highest level of school Bachelor's degree (e.g., BA, AB, 03/21/2021 you have completed or the highest BS) degree you have received? Sex Assigned at Date Recorded Female 01/23/2021 7:15 AM CDT documented as of this encounter Consult Notes Lizet Howe PJanice, D.P.T. - 05/01/2021 1:00 PM CST Physical Therapy Outpatient Evaluation/Treatment By co-signing this note, the provider certifies the therapy being provided to this patient is reasonable and necessary for the diagnosis or treatment of this patient. SUBJECTIVE Patient's Name: Noa Bibimae Franco Referring Provider: Therese Lock P.A.-C.* Visit Diagnosis: 1. Migraine Headache Reason for Referral: Patient was referred to physical therapy for treatment of Migraine. Onset Date: 01/10/21 Payor: [employer] / Plan: [employer] DISTINCTIONS III / Product Type: PPO / Epic Visit Count: 1 PERTINENT MEDICAL / SURGICAL HISTORY: Patient Active Problem List Diagnosis ??? Migraine Headache ??? Anxiety ??? Delivery Vaginal Normal Spontaneous (HCC) ??? Depression ??? Dysuria ??? Edentulism Complete ??? Headache Unspecified ??? Other Abnormal Findings On Screening Of Mother ??? Other Specified Diseases And Conditions Complicating ??? Other Specified Related Conditions Unspecified Trimester ??? Other Viral Warts ??? Overweight Body Mass Index 25-29.9 Adult ??? Stone Kidney ??? Wart Plantar Past Surgical History: Procedure Laterality Date ??? CHOLECYSTECTOMY N/A 11/24/2016 Cholecystectomy ??? CHOLECYSTECTOMY IMAGING: EXAM: CT HEAD WITHOUT IV CONTRAST COMPARISON: None. FINDINGS: No acute intracranial hemorrhage, mass effect, abnormal extra axial fluid collection, or evidence of infarction. No hydrocephalus. Basilar cisterns are patent. ??Paranasal sinuses and mastoid air cells are well-aerated. The orbits and visualized nasopharynx are negative. Reminder extracranial soft tissue and osseous structures are negative. IMPRESSION: No acute intracranial findings. No finding to account for headache. EXAM: DX CHEST AP OR PA AND LATERAL 2 VIEWS IMPRESSION: Chest is negative. Noa Franco is a 35 y.o. female who presents to outpatient physical therapy for evaluation.Her symptoms consist of: 1. Migraine Overall she reports her status remains the same. 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 Previous headaches lasted <24 hours. On 01/10/21 patient experienced a migraine that has yet to go away. She reports no RAMANDEEP or incident that caused this migraine. She reports having increased stress since early 2019 when the pandemic hit and she started homeschooling her kids. Since December she has been seen at [facility] for treatment, she has seen a physical therapist in [place], and has undergone Botox for her chronic migraine on 04/08/21. Patient is now having all of her care transferred over to [facility]. 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 Recently she says at home with her kids and home schools Patient goals:Symptom free Contact monitoring: PPE used during therapy: Therapist was wearing the following PPE throughout entire session: surgicalmask and eye protection Patient was wearing a mask during therapy session: yes OBJECTIVE REVIEW OF SYSTEMS History obtained from chart review PHYSICAL EXAM Pain: Patient has migraine pain at rest, reports tenderness to palpation at upper trap, scalenes, suboccipitals. Observation/Inspection: Patient ambulates into clinic without assistive device. Appears to have protective posturing with bilateral shoulder elevation and rounded shoulders. Patient demonstrates excessive upper cervical extension and lower cervical flexion. Palpation: Patient has bilateral soft tissue impairments and myofascial restrictions in upper trap, scalenes, suboccipitals. Range of Motion: Cervical: -Flexion: 55 degrees -Extension: 50 degrees -Sidebending: R: 42; L: 35 -Rotation: 85 bilaterally Shoulder active range of motion: all WNL TREATMENT Treatment today consisted of: Manual Therapy: -Gentle cervical distraction -Passive manual upper trap and scalene stretch -Trigger point release and soft tissue release for upper trap, suboccipitals, scalenes, levator scapulae Therapeutic Exercise: -Seated Cervical Sidebending Stretch -Gentle Levator Scapulae Stretch -Seated Scapular Retraction -Supine Chin Tuck -Supine Deep Neck Flexor Training -Supine Isometric Neck Extension Home Exercise Program/Education: Access Code: [email or web address] URL: [email or web address] Exercises Seated Cervical Sidebending Stretch - 1 x daily - 7 x weekly - 2 sets - 60 hold Gentle Levator Scapulae Stretch - 1 x daily - 7 x weekly - 2 sets - 60 hold Seated Scapular Retraction - 1 x daily - 7 x weekly - 3 sets - 10 reps Supine Chin Tuck - 1 x daily - 7 x weekly - 1 sets - 10 reps Supine Deep Neck Flexor Training - Repetitions - 1 x daily - 7 x weekly - 1 sets - 10 reps Supine Isometric Neck Extension - 1 x daily - 7 x weekly - 2 sets - 10 reps Assessment Clinical Impression: Ms. Franco presents to physical therapy with signs and symptoms consistent with Migraine. Impairments include decreased cervical range of motion, decreased cervical tissue flexibility, and headache pain. Patient's physical and mental health/wellness is impacted by pain. Patient would benefit from skilled therapy to improve tissue flexibility, decrease occurrence and severity of headache pain. Rehab Potential: Ms. Franco has Good potential to achieve established physical therapy goals withinthe time frame outlined below, provided she actively participates in her physical therapy treatment plan and home program. Clinical Presentation: Evolving Examination elements: 3 Clinical Decision Making: Moderate complexity clinical decision making Functional Goals and Timeframes: PT Outpatient Goals PT Goal #1: Patient will report less than 4/10 migraine pain consistently for 1 week PT Goal #1 Date: 05/22/21 PT Goal #2: Patient will increase upper trap flexibility in order to have 50 degrees of cervical sidebending bilaterally. PT Goal #2 Date: 06/05/21 Plan Ms. Franco was educated regarding evaluative findings, diagnosis, prognosis, potential risks and benefits of rehabilitation interventions. A collaborative effort was used to establish goals and plan of care. She was informed of her right to make decisions regarding her care, including refusal of examination or treatment or selection of services from another provider if desired. The treatment plan may be progressed or modified based upon her response to treatment. Physical Therapy Attestation Statement: Patient agrees with the plan of care and goals. Treatment Plan: Plan: Plan of care initiated Start of Plan of Care: 05/01/2021 Number of Visits:10 visits PT Duration: 60 days PT Frequency: PT Frequency: 1 time per week Treatment interventions may include: Treatment/Interventions: Therapeutic exercise,Therapeutic functional activity,Manual therapy,Therapeutic modalities as needed Plan for next session: Assess tolerance to HEP, trial manual therapy. 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 PCP - General Family Medicine 1 09/26/21 documented as of this encounter
--- OUTSIDE RECORDS SUMMARY | 2022-01-23 23:53 | XMS_ITS | Encounter Summary ---
:1985 Author Organization [facility] Address [address] [place] [address] Care Team Providers Name Role Phone Therese Lock P.A.-C. P.AClarisa Primary Care Provider Laura ballard Encounter Details Date Type Department Care Team Description 06/27/2021 Orders Only Pharmacy Prior Auth Kaylyn Miller [phone] Social History Tobacco Use Types Packs/Day Years [...] More than 4 times per year 05/31/2021 mandaeism services? Do you belong to any clubs or Yes 05/31/2021 organizations such as pentecostalism groups, unions, fraternal or athletic groups, or [...] place to sleep or slept in a long term (including now)? 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 PCP - General Family Medicine 1 09/26/21 documented as of this encounter
--- OUTSIDE RECORDS SUMMARY | 2022-01-23 23:53 | XMS_ITS | Encounter Summary ---
:1985 Author Organization [facility] Address [address] [place] [address] Care Team Providers Name Role Phone Therese Lock P.A.-C., P.A. Primary Care Provider Unavaila ble Reason for Visit Reason Comments ED Visit Encounter Details Date Type Department Care Team Description 04/15/2021 Clinical Communication Department of [facility] Enriqueta Lock, ED Visit Medicine, [facility], in [address] [phone] Social History Tobacco Use Types Packs/Day Years [...] this encounter Miscellaneous Notes Telephone Encounter - Jackeline Dennis R.N. 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 Patient was to have a procedure done, andit got cancelled. Please call patient back at [phone], and you can leave a detailed message at this number if she does not answer. ATOR REPAIR MECHANIC documented in this encounter Plan of Treatment Not on filedocumented as of this encounter Visit Diagnoses Not on filedocumented in this encounter Additional Health Concerns Assessment Noted Time PHQ-9 Depression Total Score: 5 04/01/2021 12:27 PM CS T documented as of this encounter Care Teams Instructional Material Director Relationship Specialty Start Date End Date Therese Lock P.A.-C., P.A. PCP - General Family Medicine 1 09/26/21 documented as of this encounter
--- OUTSIDE RECORDS SUMMARY | 2022-01-23 23:53 | XMS_ITS | Encounter Summary ---
:1985 Author Organization [facility] Address [address] [place] [address] Care Team Providers Name Role Phone Therese Lock P.A.-C., P.A. Primary Care Provider Unavaila ble Reason for Referral Outpatient (Routine) - Closed Specialty Diagnoses / Procedures Referred By Contact Refer red To Contact Video Medicine Diagnoses Migraine Headache Therese Lock [facility] P.A. [address] [place] [address] Referral ID Status Reason Start Date Expiration Date Visits Requ ested Visits Authorized [id number] Closed 05/13/2021 05/13/2022 1 1 MEDIC Reason for Visit Reason Comments Migraine Headache continues and would like to talk to Therese about where things stand and Neurology recommendation s. See Neurology notes from 05/08/21. Outpatient (Routine) - Closed Specialty Diagnoses / Procedures Referred By Contact Refer red To Contact Family Medicine Therese Lock P.A.-C., [facility] [address] [place] [address] Referral ID Status Reason Start Date Expiration Date Visits Requ ested Visits Authorized [id number] Closed 02/28/2021 02/28/2022 1 1 Encounter Details Date Type Department Care Team Description 05/13/2021 Telemedicine Department of Therese Weiss Mig raine Headache Medicine, [facility] in [address] [place] [address] Social History Tobacco Use Types Packs/Day Years [...] or relatives? How often do you attend advent or More than 4 times per year 05/31/2021 jainism services? Do you belong to any clubs or Yes 05/31/2021 organizations such as advent groups, unions, fraternal or athletic groups, or [...] place to sleep or slept in a prison (including now)? Education Answer Date Recorded What is the highest level of school Bachelor's degree (e.g., BA, AB, 03/21/2021 you have completed or the highest BS) degree you have received? Sex Assigned at Date Recorded Female 01/23/2021 7:15 AM CDT documented as of this encounter Progress Notes Therese Lock P.A.-C., P.A. - 05/13/2021 2:30 PM CST SUBJECTIVE CHIEF COMPLAINT/REASON FOR VISIT Noa Franco is a 35 y.o. female who presents for evaluation of Migraine (Headache continuesand would like to talk to Therese about where things stand and Neurology recommendations. See Neurologynotes from 05/08/21. ). Consult conducted via real-time audio/video technology by Therese Lock P.A.-C[facility]. HISTORY OF PRESENT ILLNESS Noa is a pleasant 35-year-old female who presents today for a video visit for ongoing migraines.She is following with Neurology out of [place]. She initially endorse some improvement with her headaches after starting Botox injections but now feels as though these are worsening again. She was trialed on DHE at the beginning of April but had difficulty with her heart rate on this medication this was discontinued. She also continues on Emgality for about 3-4 months. She also is now on Cymbalta 40 mg daily for her mood. She does notice an improvement with this and does feel overall less anxious. She is noticing less mood swings as well. She has been on the 40 mg for about 5 days. Noa states that her next follow-up with Neurology is not until the end of May. In the interim she is wondering if there are any additional options for her headaches. PHYSICAL EXAMINATION Visual examination performed as indicated for virtual visit. General: Well appearing, in no acute distress. HEENT: Normocephalic. Respiratory: Non-labored breathing, no cough. Psychiatry: Mood and affect appropriate. Normal cognition, good insight. ASSESSMENT / PLAN 1. Migraine Headache Patient continues to suffer from migraines despite Emgality and Botox injections. She was recently prescribed rizatriptan by her neurologist to use as well. He previously did trial Topamax which she felt extremely fatigued on this medication. She is open to trying this again. She states that the time that we are trying Topamax she tried numerous other medications and is unsure which were causing her side effects. Advised that she can start at 12 and half for 25 mg at bedtime and we will try this for2 weeks before making any additional adjustments. Follow-up with a video visit at that time. Next follow-up with Neurology is June 24. - Video anyplace visit; Future Patient was instructed to follow up in primary care if symptoms are worsening or there is no improvement over the next several days. Plan was discussed with patient and is in agreement with plan. All questions were answered, side effects of any/all new medications were discussed. Ready to learn. No apparent learning barriers were identified. Learning preferences include listening. Explained diagnosis and treatment plan. Patient/Child/Caregiver expressed understanding of the content. I personally spent a total of 18 minutes in video visit time, performing a review of the record, and/or discussion with the patient/caregiver as described above. Therese Lock P.A.-C., P.A. MEDIC documented in this encounter Plan of Treatment Scheduled Referrals Name Type Priority Associated Diagnoses Order S chedule Video anyplace Outpatient Referral Routine Migraine Headache E xpected: visit 05/27/2021 (Approximate), Expires: 08/11/2022 documented as of this encounter Visit Diagnoses Diagnosis Migraine Headache - Primary documented in this encounter Additional Health Concerns Assessment Noted Time PHQ-9 Depression Total Score: 5 04/01/2021 12:27 PM CS T documented as of this encounter Care Teams Activity Director Relationship Specialty Start Date End Date Therese Lock P.A.-C., P.A. PCP - General Family Medicine 1 09/26/21 documented as of this encounter
--- OUTSIDE RECORDS SUMMARY | 2022-01-23 23:53 | XMS_ITS | Encounter Summary ---
:1985 Author Organization [facility] Address [address] [place] [id number] Care Team Providers Name Role Phone Therese Lock P.A.-C., P.A. Primary Care Provider Unavaila ble Reason for Referral Outpatient (Routine) - Authorized Specialty Diagnoses / Procedures Referred By Contact Refer red To Contact Diagnoses Migraine Headache Chronic Rui Hernandez M.D. [facility] Procedures Botox for Chronic Migraine HI INJECTION,ONABOTULINUMTOXINA HI CHEMODENERV FACIAL TRIGEM JADE 200 units every 12 weeks [address] [place] [address] [phone] Referral ID Status Reason Start Date Expiration Date Visits V isits Requested Authorized [id number] Authorized 04/01/2021 04/01/2022 12 3 HICS SOFTWARE ENGINEER Reason for Visit Reason Comments Migraine Outpatient (Routine) - Closed Specialty Diagnoses / Procedures Referred By Contact Refer red To Contact Video Medicine Diagnoses Migraine Headache Chronic Rui Hernandez M.D. [facility] [address] [place] [phone] Referral ID Status Reason Start Date Expiration Date Visits Requ ested Visits Authorized [id number] Closed 04/01/2021 04/01/2022 1 1 Encounter Details Date Type Department Care Team Description 06/24/2021 Telemedicine Department of Rui Hernandez Migraine He adache Neurology raimundo Mor[place], [place] [address] [place] [address] [place] [phone] Social History Tobacco Use Types Packs/Day Years [...] or relatives? How often do you attend caodaism or More than 4 times per year 05/31/2021 scientologist services? Do you belong to any clubs or Yes 05/31/2021 organizations such as caodaism groups, unions, fraternal or athletic groups, or [...] documented as of this encounter Consult Notes Rui Hernandez M.D. - 06/24/2021 4:00 PM CST SUBJECTIVE Consult conducted via real-time audio/video technology by Cali Hernandez M.D. in [facility] to the patient in their home. CHIEF COMPLAINT / REASON FOR VISIT: Ms. Franco returns today for subsequent evaluation and assessment of the effectiveness of treatments suggested at her previous visit on 04/01/21. Since her last visit she has been taking: Cymbalta-60mg ; Botulinum toxin (Botox) at a dose of >200 units every 3 months; HISTORY OF PRESENT ILLNESS: Over the past 4 weeks, Ms. Franco reports having had 28 headache days. Over the past 4 weeks the average severity and disability caused by the patients headaches is 2-moderate. Over the past 3 months, she reports experiencing side effects of: Sleepiness which is mild enough totolerate if my headaches improve. Abdominal Pain which is mild enough to tolerate if my headaches improve. Diarrhea which is mild enough to tolerate if my headaches improve. Dizziness / Vertigo which is mild enough to tolerate if my headaches improve. When last seen in March of 2021, she reported daily headaches. Botulinum toxin injections were suggested. She received Botox injections on 04/08/21. At that visit she reported daily headaches in thefour weeks prior to her first Botox treatment. She continues to have daily headaches. Preventive medications/devices used include Propranolol (Inderal), Amitriptyline (Vanatrip, Elavil, Endep), Gabapentin (Neurontin), Topiramate (Topamax), Sertaline (Zoloft), Rimegepant (Nurtec), Riboflavin, Magnesium and Galcanezumab (Emgality) The following portions of the patient's history were reviewed and updated as appropriate: allergies,current medications, family history, medical history, social history, surgical history and problem list. ASSESSMENT / PLAN DIAGNOSES: Treatment Recommendations over the next few months: For further investigation of Ms. Franco's headaches or comorbid disorders I am suggesting additional testing which includes: No testing ordered at this visit Recommended therapies for acute treatment of mild to moderate headache: Naprosyn and moderate to severe headache: Eletriptan 40 mg and Promethazine 25 mg Preventative therapies recommended: Botulinum toxin injections 200 unit I am suggesting that she increase to 200 units. If she sees no improvement at 5 weeks after treatment with Botox she will begin treatment with verapamil starting at 80 mg once daily and increase by 80 mg each week up to 80 mg three times daily over 3 weeks. Side effects can include postural dizziness and constipation, but is often well tolerated. She feels that the Cymbalta 60 mg is helping her anxiety and will continue it. She will taper off Zonisamide. I attempted to answer any questions that she had regarding her headaches and the recommended treatment. Total time visiting with patient including >50% Counselling time: 30 minutes HICS SOFTWARE ENGINEER documented in this encounter Plan of Treatment Scheduled Orders Name Type Priority Associated Diagnoses Order S chedule Botox for Chronic Procedures Routine Migraine Headache - Samantha ry 12 weeks for 12 Migraine Chronic Occurrences sta rting 06/24/2021 unti l 06/24/2024, 2 c ompleted documented as of this encounter Results HI CHEMODENERV FACIAL TRIGEM JADE (10/10/2021 1:33 PM CDT) Narrative MMODAL - 10/10/2021 1:33 PM CDT Leona Vaca M.D. ? 10/10/2021 ??1:53 PM Botox for Chronic Migraine Date/Time: 10/10/2021 1:33 PM Performed by: Leona Vaca M.D. Authorized by: Rui Hernandez M.D. Care team members present 1. Leona Vaca M.D. 3. Tomy Garcia L.PClarisaN. PROCEDURE DETAILS ?? Pre-procedure pain score: 5/10 Injection of: 100 Units onabotulinumtoxi nA 100 unit; 50 Units onabotulinumtoxinA 100 unit Needle gauge: 30 Needle length: 0.5 in Injection site details Oil Well Service Operator Helper / Procerus muscle(s): 5 units into the left aerial erector muscle, 5 units into the right aerial erector muscle and 5 units into the procerus [...] Code Phon e Number MMODAL MMODAL NA HI CHEMODENERV FACIAL TRIGEM JADE (07/01/2021 12:53 PM GRAPHICS SOFTWARE ENGINEER) Narrative MMODAL - 07/01/2021 12:53 PM GRAPHICS SOFTWARE ENGINEER Angelo Palacios M.D. ? 07/01/2021 ??3:48 PM Botox for Chronic Migraine Date/Time: 07/01/2021 12:53 PM Performed by: Angelo Palacios M.D. Authorized by: Rui Hernandez M.D. Care team members present 1. Kristina He L.PGustabo PROCEDURE DETAILS ?? Pre-procedure pain score: 4/10 Injection of: 100 Units onabotulinumtoxi nA 100 unit; 100 Units onabotulinumtoxinA 100 unit Needle gauge: 30 Needle length: 0.5 in Injection site details Oil Well Service Operator Helper / Procerus muscle(s): 5 units into the left aerial erector muscle, 5 units into the right aerial erector muscle and 5 units into the procerus [...] was done as applicable. The procedural time-out w as conducted prior to performing the procedure and confirmed in a procedu ral pause. PRE-PROCEDURE DETAILS ?? Reason for injections: [...] over the last 3 months: ??Duloxetine (Cymbalta) ( VD3 ) Headache frequency when Botox is most ef fective (middle month in between rounds). Headache days per month: 30 days Severe headache days per month: 20 days Wearing off phenomenon prior to this rou nd of Botox: yes Duration: 10 weeks Patient finds Botox treatment helpful an d wants to repeat the treatment? yes Patient had migraine headache frequency reduction by at least 7 days per month compared to pretreatment level, or migraine headache duration reduction of at least 100 hours per wali h compared to pretreatment level? yes POST-PROCEDURE DETAILS ?? Procedure completed successfully: yes ?? Complications: no apparent complications PLAN: The patient has had good response [...] encounter Visit Diagnoses Diagnosis Migraine Headache Chronic Migraine Headache Chronic Migraine Headache Chronic documented in this encounter Additional Health Concerns Assessment Noted Time PHQ-9 Depression Total Score: 8 06/24/2021 3:34 PM GRAPHICS SOFTWARE ENGINEER documented as of this encounter Care Teams Study Hall Supervisor Relationship Specialty Start Date End Date Therese Lock P.A.-C., P.A. PCP - General Family Medicine 1 09/26/21 documented as of this encounter
--- OUTSIDE RECORDS SUMMARY | 2022-01-23 23:53 | XMS_ITS | Encounter Summary ---
:1985 Author Organization [facility] Address [address] [place] [address] Care Team Providers Name Role Phone Therese Lock P.A.-C., P.A. Primary Care Provider Unavaila ble Reason for Visit Reason Comments WJustin/GLADYS Encounter Details Date Type Department Care Team Description 04/11/2021 Clinical Communication Department of Neurology Rui Hernandez W8B/[id number] in [facility] eli [place] [address] [facility] [place] [address] [place] [phone] Social History Tobacco Use Types Packs/Day Years [...] or relatives? How often do you attend christian or More than 4 times per year 05/31/2021 mormonism services? Do you belong to any clubs or Yes 05/31/2021 organizations such as christian groups, unions, fraternal or athletic groups, or [...] place to sleep or slept in a long-term (including now)? Education Answer Date Recorded What is the highest level of school Bachelor's degree (e.g., BA, AB, 03/21/2021 you have completed or the highest BS) degree you have received? Sex Assigned at Date Recorded Female 01/23/2021 7:15 AM CDT documented as of this encounter Miscellaneous Notes Telephone Encounter - Kira Laboy R.N. - 04/15/2021 3:35 PM ANALOG IC DESIGN ENGINEER Shared Dr. Hernandez's update in a separate phone call. OG IC DESIGN ENGINEER Telephone Encounter - Kira Laboy R.N. - 04/11/2021 2:48 PM ANALOG IC DESIGN ENGINEER 1) Local provider would like to switch pt from Buspar to Cymbalta (beginning dose of 20mg, goal doseunknown). Pt wonders if you feel this is okay? Should she worry about serotonin syndrome? Other medsinclude sumatriptan and promethazine. 2) During the visit pt reported that you mentioned an ER migraine abortive but requires HR monitoring. She is aware that we cannot prescribe for the ER but wonders if you'd share the name of that medication? Last visit 04/01/21 #1 Chronic migraine without aura treatment refractory ?? OG IC DESIGN ENGINEER Telephone Encounter - Kira Laboy R.N. - 04/11/2021 2:19 PM ANALOG IC DESIGN ENGINEER SUBJECTIVE CHIEF COMPLAINT / REASON FOR CALL Chay/GLADYS Information Discussed I returned a phone call to Ms. Franco to further discuss how she was doing after receiving Botox injections on 04/08. Ms. Franco has been having a headache every day since December. She reports thather headache pain was less intense the week prior to Botox but now the pain has worsened. I let her know that it is not uncommon for headaches to worsen for a period of time after a Botox treatment. I suggested she use her as needed medications to for pain relief in the meanwhile. I reminded Ms. Franco we would like her to have three sets of Botox injections prior to determining the full effectiveness of the treatment. She provided a verbal understanding. Ms. Franco also reported increased anxiety after receiving Botox. She is seeing Ms. Lock for management of anxiety. Ms. Lock is recommending that she switch form Buspar to Cymbalta. Ms. Franco would like to check with Dr. Hernandez on this plan as she has concerns of serotonin syndrome. Ms. Franco had some questions about ER treatments. She stated that in the visit Dr. Hernandez mentioned a medication that can be beneficial for breaking the migraine cycle. This medication has to be given in the hospital setting as it requires heart rate monitoring. She was wondering if Dr. Hernandez couldshare the name of that medication. Ms. Franco is aware that we cannot prescribe medications for patients to receive in the ER. PLAN Disposition/Recommendation: self-care . appropriate at this time, patient encouraged to call back with questions Information/Education: patient/caller able to teach back Caller agreeable to plan of care: yes The following references were used: nursing clinical judgement OG IC DESIGN ENGINEER documented in this encounter Plan of Treatment Not on filedocumented as of this encounter Visit Diagnoses Not on filedocumented in this encounter Additional Health Concerns Assessment Noted Time PHQ-9 Depression Total Score: 5 04/01/2021 12:27 PM CS T documented as of this encounter Care Teams Weapons And Tactics Instructor Relationship Specialty Start Date End Date Therese Lock P.A.-C., P.A. PCP - General Family Medicine 1 09/26/21 documented as of this encounter
--- OUTSIDE RECORDS SUMMARY | 2022-01-23 23:53 | XMS_ITS | Encounter Summary ---
:1985 Author Organization [facility] Address [address] [place] [address] Care Team Providers Name Role Phone Therese Lock P.A.-C., P.A. Primary Care Provider Unavaila ble Reason for Visit Reason Comments dhe infusion Encounter Details Date Type Department Care Team Description 04/15/2021 Clinical Communication Department of Rui Hernandez d he infusion Neurology in [place], [place] [address] [facility] [address] [place] [phone] Social History Tobacco Use Types Packs/Day Years [...] or relatives? How often do you attend orthodoxy or More than 4 times per year 05/31/2021 pentecostal services? Do you belong to any clubs or Yes 05/31/2021 organizations such as orthodoxy groups, unions, fraternal or athletic groups, or [...] Telephone Encounter - Kira Laboy R.N. - 04/16/2021 9:17 AM PIGGYBACK CLERK Inbox message to the patient, per discussion yesterday. YBACK CLERK Telephone Encounter - Kira Laboy R.N. - 04/15/2021 3:32 PM PIGGYBACK CLERK Ms. Franco continues to struggle with 10/10 pain after recent ER/hospitalization. She asks the followin) Would trying a nerve block be an option? 2) Could she add another preventative to the mix? She had one Botox treatment thus far and was also on Emgality. She will be stopping Emgality due to lack of coverage while on Botox. She had a steroid treatment at the end of February. She has a follow up with you on 06/24. I stated it would be best to try one preventative at a time. What are you thoughts? 04/01/21 #1 Chronic migraine without aura treatment refractory YBACK CLERK Telephone Encounter - Kira Laboy Sean Canchola - 04/15/2021 1:47 PM PIGGYBACK CLERK SUBJECTIVE CHIEF COMPLAINT / REASON FOR CALL dhe infusion Information Discussed I returned a phone call to Ms. Franco to see how she was doing after her recent ER visit and hospitalization for migraines. She continues to have a migraine; rating it 10/10 on the pain scale. She went to the ER over the weekend, was admitted and discharged yesterday. While in the ER/hospital, she was given Decadron x2 doses, Benadryl, Toradol, Ativan, Reglan, and sumatriptan without benefit. In thelast week, she has taken Excedrin 3 days, Sumatriptan injectable 2 days, Nurtec 1 day, lidocaine nasal spray and Naproxen 1 day. Ms. Franco had her first set of Botox injections on 04/08. Also, a steroid Dosepak at the end of February. At this juncture, she is seeking any option for relief. She wonders about trying a nerve block. Ms. Franco wonders about adding another preventative treatment to themix. She took Emgality on April 09 but will be stopping that medication as her insurance does not cover Emgality while she is on Botox. In the past, she recalls trying amitriptyline, propranolol (caused Bp issues), and gabapentin. I stated we usually prefer to have patients try one new therapy medhat time so we do not run the risk of not knowing which therapy is helping. Additionally, Ms. Franco asked about trying DHE. I shared the following information on behalf of Dr. Hernandez: I cannot order DHE at another institution. ??I am not really much of the fan of DHE as it is usuallynot that effective and is very nauseating. Ms. Chavez was also wondering about switching from Buspar to Cymbalta. I reviewed this with Dr. Hernandez and shared the following: No, she should not worry about serotonin syndrome. ??The Cymbalta is an SNRI which is actually a lower risk than the Buspar. I let Ms. Chavez know that I would share her update with Dr. Hernandez and would be contacting her with his feedback. She provided a verbal understanding and thanked me for the phone call. I stated that she may need to return to the ER if she continues to struggle with pain. I suggested she try to limitthe use of her as needed treatments if possible as it appears she is using them frequently. Ms. Franco is okay with a phone call or portal message response. PLAN Disposition/Recommendation: self-care . appropriate at this time, patient encouraged to call back with questions Information/Education: patient/caller able to teach back Caller agreeable to plan of care: yes The following references were used: nursing clinical judgement and Dr. Hernandez YBACK CLERK Telephone Encounter - Kira Laboy R.N. - 04/15/2021 10:41 AM PIGGYBACK CLERK Hi Dr. Hernandez, Ms. Franco tried to get DHE infusion for migraine relief at [facility] and they directed her to you. I don't believe we can just order this? I guess she could try our ER but no guarantees on getting DHE? Has been trying ibuprofen, Excedrin, sumatriptan. Migraine has been present since Botox on 04/08. #1 Chronic migraine without aura treatment refractory Last visit 04/01/21 Do we have anything else to offer? YBACK CLERK Telephone Encounter - Ani Miller - 04/15/2021 8:33 AM CST The patient has a 10/10 headache. She had Botox last Thursday. She said Dr. Hernandez had recommended DHE infusions. She said she went to the ER in [place] over the weekend requesting a DHE infusion and the provider there was uncomfortable doing so and told her to call Dr. Hernandez. She wonders how to facilitate this. Does she need an order or what is the process. YBACK CLERK documented in this encounter Plan of Treatment Not on filedocumented as of this encounter Visit Diagnoses Not on filedocumented in this encounter Additional Health Concerns Assessment Noted Time PHQ-9 Depression Total Score: 5 04/01/2021 12:27 PM CS T documented as of this encounter Care Teams Electric Solderer Relationship Specialty Start Date End Date Therese Lock P.A.-C., P.A. PCP - General Family Medicine 1 09/26/21 documented as of this encounter
--- OUTSIDE RECORDS SUMMARY | 2022-01-23 23:53 | XMS_ITS | Encounter Summary ---
:1985 Author Organization [facility] Address [address] [place] [address] Care Team Providers Name Role Phone Therese Lock P.A.-C., P.A. Primary Care Provider Unavaila ble Reason for Referral Outpatient (Routine) - Canceled Specialty Diagnoses / Procedures Referred By Contact Refer red To Contact Diagnoses Migraine Headache Chronic Rui Hernandez M.D. [facility] Procedures Botox for Chronic Migraine ND INJECTION,ONABOTULINUMTOXINA ND CHEMODENERV FACIAL TRIGEM JADE [address] [place] [address] Referral ID Status Reason Start Date Expiration Date Visits V isits Requested Authorized [id number] Canceled 04/01/2021 04/01/2022 12 4 CTOR MONEY Reason for Visit Outpatient (Routine) - Canceled Specialty Diagnoses / Procedures Referred By Contact Refer red To Contact Diagnoses Migraine Headache Chronic Rui Hernandez M.D. [facility] Procedures Botox for Chronic Migraine ND INJECTION,ONABOTULINUMTOXINA ND CHEMODENERV FACIAL TRIGEM JADE [address] [place], [place] [phone] Referral ID Status Reason Start Date Expiration Date Visits V isits Requested Authorized [id number] Canceled 04/01/2021 04/01/2022 12 4 Encounter Details Date Type Department Care Team Description 04/08/2021 Hospital Encounter Department of Rui Hernandez Migraine Headache Neurology raimundo Mueller M.D. Chronic [place], [place] 200 [facility] [address] [place] [phone] Social History Tobacco Use Types Packs/Day Years [...] or relatives? How often do you attend lutheran or More than 4 times per year 05/31/2021 gnosticist services? Do you belong to any clubs or Yes 05/31/2021 organizations such as lutheran groups, unions, fraternal or athletic groups, or [...] place to sleep or slept in a [facility] (including now)? Education Answer Date Recorded What [...] Date acetaminophen (TYLENOL) Take 650 mg by 0 04/11/20 19 325 mg tablet mouth as needed. CHOLECALCIFEROL, VITAMIN Take 1 tablet by 0 11/05 D3, (VITAMIN D3 ORAL) mouth daily. ibuprofen (ADVIL,MOTRIN) 600 mg as needed. 0 12/27 600 mg tablet naproxen (NAPROSYN) 500 Take one tablet 20 tablet 5 021 mg tablet (500 mg) by mouth at onset of headache, may repeat in 8 hours, no more than 2 per day or 5 per week. ondansetron ODT as needed. 0 02/09/2021 (ZOFRAN-ODT) 4 mg disintegrating tablet PNV NO.95/FERROUS Take 1 capsule by 0 11/05/2016 FUM/FOLIC AC ( mouth daily. MULTIVITAMINS ORAL) sennosides-docusate 8.6-50 tablets as 0 9 sodium (SENOKOT-S) 8.6-50 needed. mg per tablet busPIRone (BUSPAR) 7.5 mg Take 1.5 tablets 135 tablet 11 12/202005/31/2021 tablet (11.25 mg total) by mouth 3 (three) times a day. clonazePAM (KlonoPIN) 1 Take 1 tablet (1 mg 30 tablet 0 12/25/2021 mg tablet total) by mouth daily. Emgality Pen 120 mg/mL every 30 (thirty) 0 202009/12/2021 injection days. fluconazole (DIFLUCAN) Take 1 tablet (150 2 tablet 0 01/2309/12/2021 150 mg tablet mg total) by mouth See Admin Instructions. Take one tab now. Repeat in 7 days if symptoms persist. hydrOXYzine (ATARAX) 25 Take 25 mg by mouth 0 05/31/2021 mg tablet as needed (for sleep). LORazepam (ATIVAN) 0.5 mg Take 0.5 mg by 0 202009/12/2021 tablet mouth as needed. Nurtec ODT 75 mg 0 02/06/2021 06/24/19 22 disintegrating tablet promethazine (PHENERGAN) Take 1 tablet (25 30 tablet 3 12/09/202006/24/2021 25 mg tablet mg total) by mouth every 6 (six) hours as needed for nausea (or rescue therapy for severe headache). Limit: 9 days/month. SUMAtriptan (IMITREX as needed. 0 03/12/2021 02/05/2021 STATDOSE) 6 mg/0.5 mL injection pen SUMAtriptan (IMITREX Inject 0.5 mL (6 mg 10 mL 3 202009/12/2021 STATDOSE) 6 mg/0.5 mL total) under the injection skin 2 (two) times a day as needed (severe headache). Limit: 14 days/month. UNABLE TO FIND THC oil as needed 0 for pain documented as of this encounter Procedure Notes Rui Hernandez M.D. - 04/08/2021 11:15 AM CSTAssociated Order(s): Botox for Chronic Migraine Pre-Procedure Diagnose(s): Migraine Headache Chronic Post-Procedure Diagnose(s): Migraine Headache Chronic Botox for Chronic Migraine Date/Time: 04/08/2021 9:26 AM Performed by: Rui Hernandez M.D. Authorized by: Rui Hernandez M.D. PROCEDURE DETAILS Pre-procedure pain score: 9/10 Injection of: 100 Units onabotulinumtoxinA 100 unit 50 Units onabotulinumtoxinA 50 unit Needle gauge: 30 Needle length: 0.5 in Injection site details Audio Experience Expert / Procerus muscle(s): 5 units into the left book sewing machine operator muscle, 5 units into the right book sewing machine operator muscle and 5 units into the procerus muscle (15 units total). Superior Frontalis muscle(s): 5 units into the left superior frontalis muscle and 5 units into the right superior frontalis muscle (2 injection sites per muscle) (10 units total). Temporalis muscle(s): 12.5 units into the left temporalis muscle and 12.5 units into the right temporalis muscle (2 injection sites per muscle) (25 units total). Splenius Capitis muscle(s): 12.5 units into the left splenius capitis muscle and 12.5 units into theright splenius capitis muscle (2 injection sites per muscle) (25 units total). Occipitalis muscle(s): 12.5 units into the left occipitalis muscle and 12.5 units into the right occipitalis muscle (2 injection sites per muscle) (25 units total). Trapezius muscle(s): 25 units into the left trapezius muscle and 25 units into the right trapezius muscle (3 injection sites per muscle) (50 units total). Total units wasted: 0 Total units injected: 150 CONSENT Consent obtained: written UNIVERSAL PROTOCOL All relevant documentation and testing were reviewed and available. All required blood products, implants, devices and or special equipment were made available as applicable. Pre-procedure verificationwas conducted and the correct site was marked if required. A fire risk assessment was done as applicable. The procedural time-out was conducted prior to performing the procedure [...] that is not covered by a third green party. Prior preventative medication trials: propranolol, amitriptyline, gabapentin and topiramate Headache frequency Headache days per month: 30 days Severe headache days per month: 30 days POST-PROCEDURE DETAILS: Procedure completed successfully: yes Complications: no apparent complications CTOR MONEY documented in this encounter Plan of Treatment Not on filedocumented as of this encounter Procedures Procedure Name Priority Date/Time Associated Comments Diagnosis ND CHEMODENERV FACIAL Routine 04/08/2021 9:26 AM Migraine Head ache Results for this TRIGEM JADE DIRECTOR MONEY Chronic procedure are i n the results section. documented in this encounter Results ND CHEMODENERV FACIAL TRIGEM JADE (04/08/2021 9:26 AM DIRECTOR MONEY) Narrative MMODAL - 04/08/2021 9:26 AM DIRECTOR MONEY Rui Hernandez M.D. ? 04/08/2021 ??9:49 AM Botox for Chronic Migraine Date/Time: 04/08/2021 9:26 AM Performed by: Rui Hernandez M.D. Authorized by: Rui Hernandez M.D. PROCEDURE DETAILS ?? Pre-procedure pain score: 9/10 Injection of: 100 Units onabotulinumtoxi nA 100 unit 50 Units onabotulinumtoxinA 50 unit Needle gauge: 30 Needle length: 0.5 in Injection site details Audio Experience Expert / Procerus muscle(s): 5 units into the left book sewing machine operator muscle, 5 units into the right book sewing machine operator muscle and 5 units into the procerus muscle ??(15 units total). Superior Frontalis muscle(s): 5 units in to the left superior frontalis muscle and 5 units into the right superi or frontalis muscle ?? (2 injection sites per muscle) (10 units total). Temporalis muscle(s): 12.5 units into th e left temporalis muscle and 12.5 units into the right temporalis muscle ? ? (2 injection sites per muscle) ?? (25 units total). Splenius Capitis muscle(s): 12.5 units i nto the left splenius capitis muscle and 12.5 units into the right spl enius capitis muscle ?? (2 injection sites per muscle) ??(25 units total). Occipitalis muscle(s): 12.5 units into t he left occipitalis muscle and 12.5 units into the right occipitalis mu scle ??(2 injection sites per muscle) ??(25 units total). Trapezius muscle(s): 25 units into the l eft trapezius muscle and 25 units into the right trapezius muscle ??(3 inj ection sites per muscle) ??(50 units total). Total units wasted: 0 Total units injected: 150 CONSENT Consent obtained: written UNIVERSAL PROTOCOL All [...] that is not covered by a third green party. ?? Prior preventative medication trials: pr opranolol, amitriptyline, gabapentin and topiramate Headache frequency Headache days per month: 30 days Severe headache days per month: 30 days POST-PROCEDURE DETAILS: Procedure completed successfully: yes Complications: no apparent complications Rui Hernandez M.D. NEUROLOGY ORDERABLES Performing Organization Address City/State/ZIP Code Phon e Number MMODAL MMODAL NA documented in this encounter Visit Diagnoses Diagnosis Migraine Headache Chronic documented in this encounter Administered Medications Inactive Administered Medications - up to 3 most recent administrations Medication Order MAR Action Action Date Dose Rate Site onabotulinumtoxinA injection 100 Given 04/08/2021 9:26 AM 100 Un its Units (BOTOX) DIRECTOR MONEY 100 Units, injection, One-Time Injection, Starting on Thu04/08/21 at 0926, For 1 dose onabotulinumtoxinA injection 50 Units Given 04/08/2021 9:[address] 50 Units (BOTOX COSMETIC) 50 Units, injection, One-Time Injection, Starting on Thu04/08/21 at 0926, For 1 dose documented in this encounter Additional Health Concerns Assessment Noted Time PHQ-9 Depression Total Score: 5 04/01/2021 12:27 PM CS T documented as of this encounter Care Teams Product Assembler Relationship Specialty Start Date End Date Therese Lock P.A.Maximiliano., P.A. PCP - General Family Medicine 1 09/26/21 documented as of this encounter
--- OUTSIDE RECORDS SUMMARY | 2022-01-23 23:53 | XMS_ITS | Encounter Summary ---
:1985 Author Organization [facility] Address [address] [place] [address] Care Team Providers Name Role Phone Therese Lock P.A.-C. P.A. Primary Care Provider Unavaila ble Reason for Visit Reason Comments Headache Encounter Details Date Type Department Care Team Description 04/06/2021 Nurse Triage Department of [facility] Nayan Jones H eadache [facility], in [address] [address] [place], [place] [address] [phone] Social History Tobacco Use Types Packs/Day Years [...] or relatives? How often do you attend latter day or More than 4 times per year 05/31/2021 mosque services? Do you belong to any clubs or Yes 05/31/2021 organizations such as latter day groups, unions, fraternal or athletic groups, or [...] place to sleep or slept in a retirement (including now)? Education Answer Date Recorded What is the highest level of school Bachelor's degree (e.g., BA, AB, 03/21/2021 you have completed or the highest BS) degree you have received? Sex Assigned at Date Recorded Female 01/23/2021 7:15 AM CDT documented as of this encounter Miscellaneous Notes Telephone Encounter - Nayan Jones R.N. - 04/06/2021 3:47 PM CST Chief Complaint / Reason for Call Patient is a 35 y.o. female calling regarding Headache. Assessment Concern: Noa calls in today with complaints of a migraine of 10/10 that has been present for thepast 3 hours. Patient has tried several of her migraine headache medications and nothing seems to work. Patient reports nausea and vomiting as well. Patient was seen on 04/01/21 with neurology and hasBotox scheduled for Thursday. Patient requesting to speak with operations business partner neurology, however there is no operations business partner for neurology after hours and patient will need to be seen in the ED. Home cares tried: injections, THC oil, The recommended disposition is Go to ED Now (or PCP Triage). Reason for Disposition ??? [1] SEVERE headache (e.g., excruciating) AND [2] worst headache of life Protocols used: [id number] Care Advice Patient/Caregiver understands and will follow care advice?: Yes, able to teach back GO TO ED NOW (OR PCP TRIAGE): CARE ADVICE given per Headache (Adult) guideline. ROTOR CREW CHIEF documented in this encounter Plan of Treatment Not on filedocumented as of this encounter Visit Diagnoses Not on filedocumented in this encounter Additional Health Concerns Assessment Noted Time PHQ-9 Depression Total Score: 5 04/01/2021 12:27 PM CS T documented as of this encounter Care Teams Financial Institution Treasurer Relationship Specialty Start Date End Date Therese Lock P.A.-C., P.A. PCP - General Family Medicine 1 09/26/21 documented as of this encounter
--- OUTSIDE RECORDS SUMMARY | 2022-01-23 23:53 | XMS_ITS | Encounter Summary ---
:1985 Author Organization [facility] Address [address] [place] [address] Care Team Providers Name Role Phone Therese Lock P.A.-C. P.A. Primary Care Provider Unavaila ble Reason for Visit Reason Comments Triage Dizziness Encounter Details Date Type Department Care Team Description 08/15/2021 Nurse Triage Department of [facility] Reyna Bower T riage; Dizziness Medicine, [facility], [facility] [address] [place] [address] Social History Tobacco Use Types Packs/Day Years [...] or relatives? How often do you attend yarsani or More than 4 times per year 05/31/2021 christian services? Do you belong to any clubs or Yes 05/31/2021 organizations such as yarsani groups, unions, fraternal or athletic groups, or [...] this encounter Miscellaneous Notes Telephone Encounter - Reyna Alicea R.N. - 08/15/2021 12:16 PM CDT Chief Complaint / Reason for Call Patient is a 35 y.o. female calling regarding Triage and Dizziness. Assessment Concern: Dizziness is a new symptoms. Has history of headaches daily since December, and working with a neurologist in [place]. Will be dizzy at times. On a calcium channel edgar to try to prevent headaches. Dizzy spells can last a couple hours. Present for: 1-2 weeks Home cares tried: meds Calling to request: appointment The recommended disposition is See a health care provider within 24 hours. Patient was warm transferred to [facility] at the clinic for further assistance. Reason for Disposition ??? [1] MODERATE dizziness (e.g., interferes with normal activities) AND [2] has NOT been evaluated by physician for this (Exception: dizziness caused by heat exposure, sudden standing, or poor fluid intake) Answer Assessment - Initial Assessment Questions 1. DESCRIPTION: Describe your dizziness. lightheaded 2. LIGHTHEADED: Do you feel lightheaded? (e.g., somewhat faint, woozy, weak upon standing) yes 3. VERTIGO: Do you feel like either you or the room is spinning or tilting? (i.e. vertigo) no 4. SEVERITY: How bad is it? Do you feel like you are going to faint? Can you stand and walk? - MILD: Feels slightly dizzy, but walking normally. - MODERATE: Feels very unsteady when walking, but not falling; interferes with normal activities (e.g., school, work) . - SEVERE: Unable to walk without falling, or requires assistance to walk without falling; feels like passing out now. moderate 5. ONSET: When did the dizziness begin? 1-2 weeks 6. AGGRAVATING FACTORS: Does anything make it worse? (e.g., standing, change in head position) unsure 7. HEART RATE: Can you tell me your heart rate? How many beats in 15 seconds? (Note: not all patients can do this) Unsure, does not feel heart is racing 8. CAUSE: What do you think is causing the dizziness? unsure 9. RECURRENT SYMPTOM: Have you had dizziness before? If Yes, ask: When was the last time? What happened that time? For 1-2 weeks 10. OTHER SYMPTOMS: Do you have any other symptoms? (e.g., fever, chest pain, vomiting, diarrhea, bleeding) Nausea, but does also get nauseated with headaches 11. : Is there any chance you are ? When was your last menstrual period? No, LMP 2 weeks aog Protocols used: DIZZINESS - [id number] Care Advice Patient/Caregiver understands and will follow care advice?: Yes, able to teach back DRINK FLUIDS: * Drink several glasses of fruit juice, other clear fluids or water. * This will improve hydration and blood glucose. * If the weather is hot or you have a fever, make sure the fluids are cold. LIE DOWN AND REST: * Lie down with feet elevated for 1 hour. * This will improve circulation and increase blood flow to the brain. CALL BACK IF: * Passes out (faints) * You become worse. CARE ADVICE given per Dizziness (Adult) guideline. SEE PCP WITHIN 24 HOURS: COVID-19 Nurse Line Screening ASSESSMENT Initial Screening Pathway Select appropriate pathway: : Adult In the last 48 hours, have you had a fever* OR symptoms that are unrelated to a preexisting illness?: No symptoms noted (Continue Screening) COVID Asymptomatic Screening Have you had close contact* with a person who has tested positive with COVID-19 in the past 14 days?: No (Continue Screening) Have you tested positive for COVID-19 in the last 90 days?: No (Continue Screening) Have you been advised to undergo testing or are you requesting testing?: No, testing for COVID-19 isnot indicated (End Screening) Testing Recommendation Endpoint Is testing recommended? : Not recommended to test PLAN Endpoint recommendation: Testing not indicated at this time documented in this encounter Plan of Treatment Not on filedocumented as of this encounter Visit Diagnoses Not on filedocumented in this encounter Additional Health Concerns Assessment Noted Time PHQ-9 Depression Total Score: 8 06/24/2021 3:34 PM CHEMICAL MAKER documented as of this encounter Care Teams Associate Account Director Relationship Specialty Start Date End Date Therese Lock P.A.Maximiliano., P.A. PCP - General Family Medicine 1 09/26/21 documented as of this encounter
--- OUTSIDE RECORDS SUMMARY | 2022-01-23 23:53 | XMS_ITS | Encounter Summary ---
:1985 Author Organization [facility] Address [address] [place] [address] Care Team Providers Name Role Phone Therese Lock P.A.-C., P.AClarisa Primary Care Provider Laura ballard Encounter Details Date Type Department Care Team Description 04/22/2021 Clinical Communication Department of Enriqueta Weiss, Medicine, [place] [facility], in [address] [phone] Social History Tobacco Use Types Packs/Day Years [...] More than 4 times per year 05/31/2021 congregational services? Do you belong to any clubs [...] minutes do you engage in exercise at is 30 min 05/31/2021 level? Stress Answer [...] place to sleep or slept in a [place] [facility] [place] (including now)? Education Answer Date Recorded What is the highest level of school Bachelor's degree (e.g., BA, AB, 03/21/2021 you have completed or the highest BS) degree you have received? Sex Assigned at Date Recorded Female 01/23/2021 7:15 AM CDT documented as of this encounter Miscellaneous Notes Telephone Encounter - Kaylyn Prescott - 04/22/2021 8:54 AM CST Patient is calling asking if she can get an infusion medication in [place] for head aches called [facility]? Please Advise. Thank you ET JACK documented in this encounter Plan of Treatment Not on filedocumented as of this encounter Visit Diagnoses Not on filedocumented in this encounter Additional Health Concerns Assessment Noted Time PHQ-9 Depression Total Score: 5 04/01/2021 12:27 PM CS T documented as of this encounter Care Teams Welder Fitter Arc Relationship Specialty Start Date End Date Therese Lock P.A.-C., P.A. PCP - General Family Medicine 1 09/26/21 documented as of this encounter
--- OUTSIDE RECORDS SUMMARY | 2022-01-23 23:53 | XMS_ITS | Encounter Summary ---
:1985 Author Organization [facility] Address [address] [place] [address] Care Team Providers Name Role Phone Therese Lock P.A.-C., P.A. Primary Care Provider Laura ballard Encounter Details Date Type Department Care Team Description 06/27/2021 Orders Only [facility] - Therese Dang, [address] [facility] [address]Maximil[address] [place] [phone] Social History Tobacco Use Types Packs/Day Years [...] or relatives? How often do you attend oriental orthodox or More than 4 times per year 05/31/2021 holiness services? Do you belong to any clubs or Yes 05/31/2021 organizations such as oriental orthodox groups, unions, fraternal or athletic groups, or [...] Depression Total Score: 8 06/24/2021 3:34 PM LOCOMOTIVE OILER documented as of this encounter Care Teams Anesthesiologist And Critical Care Relationship Specialty Start Date End Date Therese Lock P.A.-C., P.A. PCP - General Family Medicine 1 09/26/21 documented as of this encounter
--- OUTSIDE RECORDS SUMMARY | 2022-01-23 23:53 | XMS_ITS | Encounter Summary ---
:1985 Author Organization [facility] Address [address] [place] [address] Care Team Providers Name Role Phone Therese Lcok P.A.-C., P.A. Primary Care Provider Unavaila ble Reason for Referral Outpatient (Routine) - Authorized Specialty Diagnoses / Procedures Referred By Contact Refer red To Contact Diagnoses Migraine Headache Chronic Rui Hernandez M.D. [facility] Procedures Botox for Chronic Migraine CA INJECTION,ONABOTULINUMTOXINA CA CHEMODENERV FACIAL TRIGEM JADE 200 units every 12 weeks [address] [place] [address] Referral ID Status Reason Start Date Expiration Date Visits V isits Requested Authorized [id number] Authorized 04/01/2021 04/01/2022 12 3 AUDITOR Reason for Visit Outpatient (Routine) - Authorized Specialty Diagnoses / Procedures Referred By Contact Refer red To Contact Diagnoses Migraine Headache Chronic Rui Hernandez M.D. [facility] Procedures Botox for Chronic Migraine CA INJECTION,ONABOTULINUMTOXINA CA CHEMODENERV FACIAL TRIGEM JADE 200 units every 12 weeks [address] [place] [phone] Referral ID Status Reason Start Date Expiration Date Visits V isits Requested Authorized [id number] Authorized 04/01/2021 04/01/2022 12 3 Encounter Details Date Type Department Care Team Description 07/01/2021 Hospital Encounter Department of Rui Hernandez M.D. [address] [place] [phone] Migraine Headache Neurology in Angelo Palacios M.D. [address] [place] [phone] Chronic [place], [place] [address] [place] [phone] Social History Tobacco Use Types Packs/Day Years [...] or relatives? How often do you attend mandaeism or More than 4 times per year 05/31/2021 yazdanism services? Do you belong to any clubs or Yes 05/31/2021 organizations such as mandaeism groups, unions, fraternal or athletic groups, or [...] mouth 0 325 mg tablet as needed. nihvnnh-nrcxbolsjbvmy-dh Take 1-2 tablets by 0 ffeine (EXCEDRIN [...] 2 hours if needed. Limit: 9 days/month. ibuprofen (ADVIL,MOTRIN) 600 mg as needed. 0 [...] 1 tab qPM for 1 100 tablet 12 022 tablet week. If symptoms not better, increase every week by 1 tab daily as needed per med sched to max of 1 tab TID. albuterol 90 Inhale 2 puffs. 0 04/26/2021 022 mcg/actuation inhaler clonazePAM (KlonoPIN) 1 Take 1 tablet (1 mg 30 tablet 0 12/25/2021 mg tablet total) by mouth daily. Emgality Pen 120 mg/mL every 30 (thirty) 0 202009/12/2021 injection days. fluconazole (DIFLUCAN) Take 1 tablet (150 2 tablet 0 01/2309/12/2021 150 mg tablet mg total) by mouth See Admin Instructions. Take one tab now. Repeat in 7 days if symptoms persist. LORazepam (ATIVAN) 0.5 Take 0.5 mg by mouth 0 09/12/2021 mg tablet as needed. rizatriptan (MAXALT) 10 Take 1 tablet (10 mg 18 tablet 2 09/12/2021 mg tablet total) by mouth as needed for migraine. May repeat dose once in 2 hours if migraine unresolved. No more than 2 days per week or 9 days per month SUMAtriptan (IMITREX Inject 0.5 mL (6 mg 10 mL 3 202009/12/2021 STATDOSE) 6 mg/0.5 mL total) under the injection skin 2 (two) times a day as needed (severe headache). Limit: 14 days/month. UNABLE TO FIND THC oil as needed 0 for pain zonisamide (ZONEGRAN) 25 25 mg. 0 05/27/2021 09/12/2021 mg capsule documented as of this encounter Procedure Notes Angelo Palacios M.D. - 07/01/2021 1:00 PM CSTAssociated Order(s): Botox for Chronic Migraine Pre-Procedure Diagnose(s): Migraine Headache Chronic Post-Procedure Diagnose(s): Migraine Headache Chronic Botox for Chronic Migraine Date/Time: 07/01/2021 12:53 PM Performed by: Angelo Palacios M.D. Authorized by: Rui Hernandez M.D. Care team members present 1. Kristina He L.PClarisaNClarisa PROCEDURE DETAILS Pre-procedure pain score: 4/10 Injection of: 100 Units onabotulinumtoxinA 100 unit; 100 Units onabotulinumtoxinA 100 unit Needle gauge: 30 Needle length: 0.5 in Injection site details Top Tile Decorator / Procerus muscle(s): 5 units into the left scrap carrier muscle, 5 units into the right scrap carrier muscle and 5 units into the procerus [...] covered by a third green party. Prior to treatment with Botox, the frequency of headaches was greater than 15 days per month and with significant impairment in the quality of life. Please see the initial Botox injection note and Headache consultation note regarding specific details of the headache history prior to the start of treatment. Any other daily migraine prophylactic treatments taken over the last 3 months: Duloxetine (Cymbalta)( VD3 ) Headache frequency when Botox is most effective (middle month in between rounds). Headache days per month: 30 days Severe headache days per month: 20 days Wearing off phenomenon prior to this round of Botox: yes Duration: 10 weeks Patient finds Botox treatment helpful and wants to repeat the treatment? yes Patient had migraine headache frequency reduction by at least 7 days per month compared to pretreatment level, or migraine headache duration reduction of at least 100 hours per month compared to pretreatment level? yes POST-PROCEDURE DETAILS Procedure completed successfully: yes Complications: no apparent complications PLAN: The patient [...] of injections 200 units in 12 weeks. AUDITOR documented in this encounter Plan of Treatment Not on filedocumented as of this encounter Procedures Procedure Name Priority Date/Time Associated Comments Diagnosis CA CHEMODENERV FACIAL Routine 07/01/2021 12:53 Migraine Headac he Results for this TRIGEM JADE PM CITY AUDITOR Chronic procedure are i n the results section. documented in this encounter Results CA CHEMODENERV FACIAL TRIGEM JADE (07/01/2021 12:53 PM CITY AUDITOR) Narrative MMODAL - 07/01/2021 12:53 PM CITY AUDITOR Angelo Palacios M.D. ? 07/01/2021 ??3:48 PM Botox for Chronic Migraine Date/Time: 07/01/2021 12:53 PM Performed by: Angelo Palacios M.D. Authorized by: Rui Hernandez M.D. Care team members present 1. Kristina He L.P.N. PROCEDURE DETAILS ?? Pre-procedure pain score: 4/10 Injection of: 100 Units onabotulinumtoxi nA 100 unit; 100 Units onabotulinumtoxinA 100 unit Needle gauge: 30 Needle length: 0.5 in Injection site details Top Tile Decorator / Procerus muscle(s): 5 units into the left scrap carrier muscle, 5 units into the right scrap carrier muscle and 5 units into the procerus [...] by a third green party. ?? Prior to treatment with Botox, the [...] Dose Rate Site onabotulinumtoxinA injection 100 Given 07/01/2021 12:53 PM 100 U nits Units (BOTOX) CITY AUDITOR 100 Units, injection, One-Time Injection, Starting on Thu07/01/21 at 1253, For 1 dose onabotulinumtoxinA injection 100 Units Given 07/01/2021 12:53 PM CITY AUDITOR 100 Units (BOTOX) 100 Units, injection, One-Time Injection, Starting on 07/01/21 at 1253, For 1 dose documented in this encounter Additional Health Concerns Assessment Noted Time PHQ-9 Depression Total Score: 8 06/24/2021 3:34 PM CITY AUDITOR documented as of this encounter Care Teams 3Rd Mate Relationship Specialty Start Date End Date Therese Lock P.A.-C., P.A. PCP - General Family Medicine 1 09/26/21 documented as of this encounter
--- OUTSIDE RECORDS SUMMARY | 2022-01-23 23:53 | XMS_ITS | Encounter Summary ---
:1985 Author Organization [facility] Address [address] [place] [phone] Care Team Providers Name Role Phone Mer Hoang APRN C.N.PClarisa, D.N.P. Primary Care Provider Reason for Visit Physical Therapy (Routine) - Canceled Specialty Diagnoses / Procedures Referred By Contact Refer red To Contact Diagnoses Migraine Headache Therese Lock P.A.-C., [facility] Procedures PT Ongoing treatment P.A. [address] [place] [address] Referral ID Status Reason Start Date Expiration Date Visits V isits Requested Authorized [id number] Canceled 05/01/2021 04/26/2022 99 99 Encounter Details Date Type Department Care Team Description 07/29/2021 Clinical Support Department of Therese Lock P.A.-C ., P.A. Migraine Headache Rehabilitation Lizet Muniz, P.T. Services in [address] [phone] Social History Tobacco Use Types Packs/Day Years [...] More than 4 times per year 05/31/2021 presybeterian services? Do you belong to any clubs or [place] 05/31/2021 organizations such as christian groups, unions, fraBugBuster or athletic groups, or school groups? How [...] documented as of this encounter Progress Notes Lizet Muniz P.T. - 07/29/2021 4:15 PM CDT Physical Therapy Outpatient Treatment Note SUBJECTIVE Patient's Name: Noa Franco Referring Provider: Therese Lock P.A.-C.* Visit Diagnosis: 1. Migraine Headache Payor: [employer] / Plan: [employer] [facility] III / Product Type: PPO / No data recorded Epic Visit Count: 3 Patient comments: Patient received another round of Botox for her headaches, she reports some improvement in severity in recent weeks. Contact monitoring: PPE used during therapy: Therapist was wearing the following PPE throughout entire session: surgicalmask and eye protection Patient was wearing a mask during therapy session: yes OBJECTIVE Palpation: Patient has bilateral soft tissue impairments and myofascial restrictions in upper trap, scalenes, suboccipitals, sternocleidomastoid. TREATMENT Treatment today consisted of: Manual Therapy: -Gentle cervical distraction -Occipital release -Passive manual upper trap and scalene stretch -Trigger point release and soft tissue release for upper trap, suboccipitals, scalenes, levator scapulae, SCM Therapeutic Exercise: -Review of HEP Home Exercise Program/Education: Upper trap stretch, scalene stretch, SCM stretch, pec stretch, levator stretch, chin tuck, deep neckflexor strength, isometric side bending, band resisted row, prone scap pinches, seated scap retraction Pt reports good compliance with her HEP. Assessment Clinical Impression: Ms. Franco presents to physical therapy for continued rehabilitation to reduceheadache and migraine pain. Overall patient continues to suffer from headache pain. Her pain has improved somewhat since receiving Botox. She reports responding well to STM in previous session and would like additional home exercises. Today we completed manual therapy to reduce muscular restrictions. We also updated HEP. Patient would benefit from continued physical therapy. Functional Goals and Timeframes: PT Goal #1: Patient will report less than 4/10 migraine pain consistently for 1 week PT Goal #1 Date: 05/22/2021 PT Goal #2: Patient will increase upper trap flexibility in order to have 50 degrees of cervical sidebending bilaterally. PT Goal #2 Date: 06/05/2021 No data recorded No data recorded Plan Plan for next session: Manual, neck strength Time Spent with Patient Therapeutic Interventions Manual Therapy (min): 15 min Therapeutic Exercise (min): 15 min Time Tracking Total Timed Units (min): 30 min Total Treatment Time (min): 30 min PHYSICAL THERAPY DISCHARGE NOTE Medical Diagnosis: 1. Migraine Headache Date of Onset: 01/10/21 Start of care date: 05/01/21 Number of visits from start of care: 3 Date of final visit: 07/29/21 DISCHARGE STATUS STATUS OF GOALS: Current status unknown as pt has not been seen in physical therapy since their lastvisit. REASON FOR DISCHARGE: Pt did not return for therapy. DISCHARGE PLAN/RECOMMENDATIONS: The patient is encouraged to continue with therapeutic recommendations provided throughout the course of care. If additional skilled care is indicated in the future, a new physical therapy order and evaluation would be required. documented in this encounter Miscellaneous Notes Addendum Note - Lizet Muniz P.T. - 07/29/2021 4:15 PM CDT Addended by: LIZET MUNIZ on: 01/20/2022 01:54 PM Modules accepted: Orders documented in this encounter Plan of Treatment Not on filedocumented as of this encounter Visit Diagnoses Diagnosis Migraine Headache documented in this encounter Additional Health Concerns Assessment Noted Time PHQ-9 Depression Total Score: 8 06/24/2021 3:34 PM VICE PRESIDENT DIVERSITY documented as of this encounter Care Teams Career Representative Relationship Specialty Start Date End Date Mer Hoang APRN, C.N.P., PCP - General Family Medicine D.N.P. [id number] [phone] documented as of this encounter
--- OUTSIDE RECORDS SUMMARY | 2022-01-23 23:53 | XMS_ITS | Encounter Summary ---
:1985 Author Organization [facility] Address [address] [place] [address] Care Team Providers Name Role Phone Therese Lock P.A.-C., P.A. Primary Care Provider Unavaila ble Reason for Visit Reason Comments Med Refill Encounter Details Date Type Department Care Team Description 06/27/2021 Refill Department of Neurology in Rui Peck M.D. Med Refill [place], [place] [address] [facility] [address] [place] [address] [place] [address] [phone] Social History Tobacco Use Types Packs/Day Years [...] or relatives? How often do you attend amish or More than 4 times per year 05/31/2021 presybeterian services? Do you belong to any clubs or Yes 05/31/2021 organizations such as amish groups, unions, fraternal or athletic groups, or [...] Depression Total Score: 8 06/24/2021 3:34 PM EXTRA HAND documented as of this encounter Care Teams Grinder Relationship Specialty Start Date End Date Therese Lock P.A.Maximiliano., P.A. PCP - General Family Medicine 1 09/26/21 documented as of this encounter
--- OUTSIDE RECORDS SUMMARY | 2022-01-23 23:53 | XMS_ITS | Encounter Summary ---
:1985 Author Organization [facility] Address [address] [place] [address] Care Team Providers Name Role Phone Therese Lock P.A.-C., P.A. Primary Care Provider Unavaila ble Reason for Visit Reason Comments Med Management Talk about med change Outpatient (Routine) - Closed Specialty Diagnoses / Procedures Referred By Contact Refer red To Contact Video Medicine Diagnoses Migraine Headache Therese Lock, [facility] P.Emiliano.LisC., P.A. [address] [place] [address] Referral ID Status Reason Start Date Expiration Date Visits Requ ested Visits Authorized [id number] Closed 05/13/2021 05/13/2022 1 1 Encounter Details Date Type Department Care Team Description 05/31/2021 Telemedicine Department of [facility] Therese Lock, Dep ression (Primary Dx); Medicine, [place] Elizabeth., P.A. Migr laureen Headache; Clinic, in [address] [phone] Social History Tobacco Use Types Packs/Day Years [...] or relatives? How often do you attend zoroastrian or More than 4 times per year 05/31/2021 islam services? Do you belong to any clubs or Yes 05/31/2021 organizations such as zoroastrian groups, unions, fraNaviscan or athletic groups, or school groups? How [...] CDT documented as of this encounter Progress Therese Pace P.A.-C., P.A. - 05/31/2021 9:30 AM CST SUBJECTIVE CHIEF COMPLAINT/REASON FOR VISIT Noa Franco is a 35 y.o. female who presents for evaluation of Med Management (Talk about med change ). Consult conducted via real-time audio/video technology by Therese Lock P.A.-C., P.A. in [facility] [place] to the patient's home. HISTORY OF PRESENT ILLNESS Noa is a very pleasant 35-year-old female who presents today for a video visit. She wants to update me today on her current migraine and mood management. She is following with Psychiatry now at [facility] and associates. They did increase her Cymbalta to 60 mg on Thursday and she is on Klonopin 1.5 mg daily. She notes that she has needed to increase her medication for her mood as Topamax has made her feel more depressed and exhausted. She was recommended by her psychiatrist to discuss zonisamide withNeurology. This is going to be her next step for her migraine management as some patients can have similar effects to migraine management with less side effects on this medication. She is currently on Topamax 25 mg only at bedtime. She states she did have effective migraine management when the dose was at 50 mg however this made her feel dark, depressed and very sleepy. PHYSICAL EXAMINATION Visual examination performed as indicated for virtual visit. General: Well appearing, in no acute distress. HEENT: Normocephalic. Respiratory: Non-labored breathing, no cough. Psychiatry: Mood and affect appropriate. Normal cognition, good insight. ASSESSMENT / PLAN 1. Migraine Headache Discontinue Topamax. Start on zonisamide. Follow-up with Neurology on 06/24 with Botox injections onJuly 01. She will continue to keep us posted via the portal and in clinic. - Video anyplace visit 2. Depression 3. Anxiety Continue with Cymbalta 60 mg daily and Klonopin 1.5 mg daily as prescribed by her psychiatrist at [facility]. Patient was instructed to follow up in [...] content. I personally spent a total of 15 minutes in video visit time, performing a review of the record, and/or discussion with the patient/caregiver as described above. Therese Lock P.A.-C., P.A. R SWEEPER documented in this encounter Plan of Treatment Not on filedocumented as of this encounter Visit Diagnoses Diagnosis Depression - Primary Migraine Headache Anxiety documented in this encounter Additional Health Concerns Assessment Noted Time PHQ-9 Depression Total Score: 5 04/01/2021 12:27 PM CS T documented as of this encounter Care Teams Stone Processing Machine Operator Relationship Specialty Start Date End Date Therese Lock P.A.-C., P.A. PCP - General Family Medicine 1 09/26/21 documented as of this encounter
--- OUTSIDE RECORDS SUMMARY | 2022-01-23 23:53 | XMS_ITS | Encounter Summary ---
:1985 Author Organization [facility] Address [address] [place] [address] Care Team Providers Name Role Phone Therese Lock P.A.-C., P.A. Primary Care Provider Unavaila ble Reason for Visit Physical Therapy (Routine) - Canceled Specialty Diagnoses / Procedures Referred By Contact Refer red To Contact Diagnoses Migraine Headache Therese Lock P.A.-C., [facility] Procedures PT Ongoing treatment P.A. [address] [place] [address] Referral ID Status Reason Start Date Expiration Date Visits V isits Requested Authorized [id number] Canceled 05/01/2021 04/26/2022 99 99 Encounter Details Date Type Department Care Team Description 05/07/2021 Clinical Support Department of Therese Lock P.A.-C ., P.A. Migraine Headache Rehabilitation Lizet Howe P.TClarisa Services in [address] [phone] Social History Tobacco Use Types Packs/Day Years [...] More than 4 times per year 05/31/2021 hinduism services? Do you belong to any clubs [...] place to sleep or slept in a half-way (including now)? Education Answer Date Recorded What is the highest level of school Bachelor's degree (e.g., BA, AB, 03/21/2021 you have completed or the highest BS) degree you have received? Sex Assigned at Date Recorded Female 01/23/2021 7:15 AM CDT documented as of this encounter Progress Notes Lizet Howe P.T., D.P.T. - 05/07/2021 9:00 AM CST Physical Therapy Outpatient Treatment Note SUBJECTIVE Patient's Name: Noa Franco Referring Provider: Therese Lock P.A.-C.* Visit Diagnosis: 1. Migraine Headache Reason for Referral: Patient was referred to physical therapy for treatment of Migraine. Onset Date: 01/10/21 Payor: [employer] / Plan: [employer] III / Product Type: PPO / No data recorded Epic Visit Count: 2 Patient comments: Patient presents to therapy today with continued migraine. She has been completingHEP daily as tolerated, however has found to have increased headaches after stretching. Contact monitoring: PPE used during therapy: Therapist was wearing the following PPE throughout entire session: surgicalmask and eye protection Patient was wearing a mask during therapy session: yes OBJECTIVE Pain: Reports continued headache, unable to rate pain Palpation: Patient has bilateral soft tissue impairments and myofascial restrictions in upper trap, scalenes, suboccipitals, sternocleidomastoid. ?? Range of Motion: Cervical: -Flexion: 55 degrees -Extension: 50 degrees -Sidebending: R: 42; L: 35 -Rotation: 85 bilaterally TREATMENT Treatment today consisted of: Manual Therapy: -Gentle cervical distraction -Passive manual upper trap and scalene stretch -Trigger point release and soft tissue release for upper trap, suboccipitals, scalenes, levator scapulae, SCM ?? Therapeutic Exercise: -Seated Cervical Sidebending Stretch -Gentle Levator Scapulae Stretch -Seated SCM stretch?? Home Exercise Program/Education: Access Code: [email or web address] URL: [email or web address] ?? Exercises Seated Cervical Sidebending Stretch - 1 [...] weekly - 2 sets - 10 reps Sternocleidomastoid Stretch - 1 x daily - 5-7 x weekly - 2-3 sets - 8-10 reps Pt reports good compliance with her HEP. Assessment Clinical Impression: Ms. Franco presents to physical therapy for continued rehabilitation to reduceheadache and migraine pain. Impairments include decreased cervical range of motion, decreased cervical tissue flexibility, decreased deep neck flexion strength, and headache pain. Patient reports comple ting home exercise program often, however often suffers from increased pain after exercises. Patientresponds well to soft tissue mobilization today and stretching exercises in therapy. She would benefit from continued skilled therapy to improve tissue flexibility, decrease occurrence and severity of h eadache pain. Functional Goals and Timeframes: PT Goal #1: Patient will report less than 4/10 migraine pain consistently for 1 week PT Goal #1 Date: 05/22/21 PT Goal #2: Patient will increase upper trap flexibility in order to have 50 degrees of cervical sidebending bilaterally. PT Goal #2 Date: 06/05/21 Plan Plan for next session: Continue with manual, add neck stabilization and range of motion exercises. Time Spent with Patient Manual Therapy (min): 20 min Therapeutic Exercise (min): 12 min Time Calculation Total Timed Units (min): 32 min Total Treatment Time (min): 32 min ON INSTALLER documented in this encounter Plan of Treatment Not on filedocumented as of this encounter Visit Diagnoses Diagnosis Migraine Headache documented in this encounter Additional Health Concerns Assessment Noted Time PHQ-9 Depression Total Score: 5 04/01/2021 12:27 PM CS T documented as of this encounter Care Teams Superintendent Drivers Relationship Specialty Start Date End Date Therese Lock P.A.-C., P.A. PCP - General Family Medicine 1 09/26/21 documented as of this encounter
--- OUTSIDE RECORDS SUMMARY | 2022-01-23 23:53 | XMS_ITS | Encounter Summary ---
:1985 Author Organization [facility] Address [address] [place] [address] Care Team Providers Name Role Phone Therese Lock P.A.-C., P.A. Primary Care Provider Laura ballard Encounter Details Date Type Department Care Team Description 04/10/2021 Orders Only Department of Family Therese Lock, Medicine, [place] [facility] Clinic, in [address] [phone] Social History Tobacco Use [...] or relatives? How often do you attend mu-ism or More than 4 times per year 05/31/2021 rastafarian services? Do you belong to any clubs or Yes 05/31/2021 organizations such as mu-ism groups, unions, fraternal or athletic groups, or [...] place to sleep or slept in a usp (including now)? Education Answer Date Recorded What [...] documented as of this encounter Care Teams Layout Artist Relationship Specialty Start Date End Date Therese Lock P.A.-C., P.A. PCP - General Family Medicine 1 09/26/21 documented as of this encounter
--- OUTSIDE RECORDS SUMMARY | 2022-01-23 23:53 | XMS_ITS | Encounter Summary ---
:1985 Author Organization [facility] Address [address] [place] [address] Care Team Providers Name Role Phone Therese Lock P.A.-C. P.AClarisa Primary Care Provider Laura ballard Encounter Details Date Type Department Care Team Description 06/27/2021 Clinical Communication Department of Neurology Rui Hernandez in [facility] eli Morrow [address] [facility] [address] [place] [phone] Social History Tobacco Use Types Packs/Day Years [...] or relatives? How often do you attend faith or More than 4 times per year 05/31/2021 sikhism services? Do you belong to any clubs or Yes 05/31/2021 organizations such as faith groups, unions, fraternal or athletic groups, or [...] this encounter Miscellaneous Notes Telephone Encounter - Estrella Day R.N. - 06/27/2021 1:53 PM TUBING ASSEMBLER SUBJECTIVE Noa stated she took 50 mg zonisamide for three days and then last night was her first night of 25 mg zonisamide and her headache is 10/10 today, all she can do is lay down and nap, she can't go fora walk. She has not started the eletriptan since the pharmacy has not gotten it in yet. CHIEF COMPLAINT / REASON FOR CALL No chief complaint on file. ASSESSMENT Noa stated the intensity of this headache is 10/10 just like before. PLAN Disposition/Recommendation: notified provider and awaiting recommendations. Information/Education: patient/caller able to teach back. Caller agreeable to plan of care: yes. The following references were used: nursing clinical judgement. NG ASSEMBLER Telephone Encounter - Leroy Conde - 06/27/2021 12:[address] Hernandez pt calling. Had recent apt with pt and Dr. Hernandez was having her starting to wean off Vonisamide, which she juststarted this week. Headaches are now getting much worse. Should she continue the titration? Dash Harper NG ASSEMBLER documented in this encounter Plan of Treatment Not on filedocumented as of this encounter Visit Diagnoses Not on filedocumented in this encounter Additional Health Concerns Assessment Noted Time PHQ-9 Depression Total Score: 8 06/24/2021 3:34 PM TUBING ASSEMBLER documented as of this encounter Care Teams Brake Rider Relationship Specialty Start Date End Date Therese Lock P.A.-C., P.A. PCP - General Family Medicine 1 09/26/21 documented as of this encounter
--- OUTSIDE RECORDS SUMMARY | 2022-01-23 23:54 | XMS_ITS | Encounter Summary ---
:1985 Author Organization [facility] Address [address] [place] [address] Care Team Providers Name Role Phone Therese Lock P.A.-C., P.A. Primary Care Provider Unavaila ble Reason for Referral Outpatient (Routine) - Closed Specialty Diagnoses / Procedures Referred By Contact Refer red To Contact Video Medicine Diagnoses Migraine Headache Chronic Rui Hernandez M.D. [facility] [address] [place] [phone] Referral ID Status Reason Start Date Expiration Date Visits Requ ested Visits Authorized [id number] Closed 04/01/2021 04/01/2022 1 1 MATIC PRINT DEVELOPER Reason for Visit Outpatient (Routine) - Closed Specialty Diagnoses / Procedures Referred By Contact Refer red To Contact Neurology Diagnoses Migraine Headache Therese Lock P.A.-C., [facility] [address] [place] [address] Referral ID Status Reason Start Date Expiration Date Visits Requ ested Visits Authorized [id number] Closed 01/23/2021 01/23/2022 1 1 Encounter Details Date Type Department Care Team Description 04/01/2021 Comprehensive Visit Department of Rui Hernandez Migrain e Headache Chronic (Primary Dx); Neurology raimundo Mueller M.D. Migraine Headache; [place], [place] [address] [place] [address] Headache Unspecified [address] [place] [phone] Social History Tobacco Use Types Packs/Day Years [...] or relatives? How often do you attend sikhism or More than 4 times per year 05/31/2021 taoism services? Do you belong to any clubs or Yes 05/31/2021 organizations such as sikhism groups, unions, fraternal or athletic groups, or [...] Sign Reading Time Taken Comments Blood Pressure 116/75 04/01/2021 12:47 PM AUTOMATIC PRINT DEVELOPER Pulse 71 04/01/2021 12:47 PM AUTOMATIC PRINT DEVELOPER Temperature - - Respiratory Rate - - Oxygen Saturation - - Inhaled Oxygen Concentration - - Weight 81.7 kg (180 lb 1.9 oz) 04/01/2021 12:47 PM AUTOMATIC PRINT DEVELOPER Height 162.2 cm (5' 3.86) 04/01/2021 12:47 PM AUTOMATIC PRINT DEVELOPER Body Mass Index 31.05 04/01/2021 12:47 PM AUTOMATIC PRINT DEVELOPER documented in this encounter Consult Notes Rui Hernandez M.D. - 04/01/2021 1:00 PM CST SUBJECTIVE CHIEF COMPLAINT / REASON FOR VISIT: Ms. Franco is a 35 y.o.right handed female who was evaluated today for headaches. HISTORY OF PRESENT ILLNESS: Her headaches began to occur about 3 month(s) ago. In describing the headaches today, she says they tend to start unilaterally and sometimes bilaterally and tend to start in the occipital region. The quality of the head pain is pressure- like with throbbing and jabbing. She estimates the maximal intensity of her headaches to be 10 out of 10 on a scale in which 0 out of ten signifies no pain and 10 outof 10 signifies the worst pain imaginable. The headaches are sometimes associated with nausea, vomiting, sensitivity to light and sensitivity to sound and none of these. She experiences vertigo. Once established, her headaches are generally worsened by exertion, like going up or down stairs or doing housework. Untreated or ineffectively treated headaches may persist for 2 day(s) and the most severe headaches may last up to 12 week(s). Patient reports that she experiences mixing up words or having difficulty expressing thoughts at thestart of headaches and it lasts for less than 5 minutes.At times during her headaches and on the same side as the head pain she experiences none of these. The patient notes that stress and physical exertion tends to trigger her headaches. She rates the severity and disability of average headaches as 3-severe. Over the past 4 weeks she reports having a headache for 28 days out of 28. Acute medications include Acetaminophen (Tylenol), Excedrin/Aspirin free Excedrin, Ibuprofen (Advil,Motrin), Dhydroergotamine (Migranal, DHE 45), Opiates/opioids, Sumatriptan (Imitrex), Rizatriptan (Maxalt) and Ketorolac (Toradol) Preventive medications/devices used include Propranolol (Inderal), Amitriptyline (Vanatrip, Elavil, Endep), Gabapentin (Neurontin), Topiramate (Topamax), Sertaline (Zoloft), Rimegepant (Nurtec), Riboflavin, Magnesium and Galcanezumab (Emgality) Patient reports family history of headaches including Sister(s). The patient has history of headaches extending back to the age of 18. We was seen the ED in after having used CBD oil to treat a headache. She was noted to be COVID positive. She has a history of intermittent migraine that responded to rizatriptan and occurred about once every week or two. She also reports pressure and pain in her neck as well. Since January 12, 2021 she has had a constant headache. She has had repeated ER visit and thus farshe had tried several prophylactic treatments which were not well tolerated. She has tried Emgality for two months without benefit. CT head from February 06 of this year showed: No acute intracranial findings. No finding to accountfor headaches. The MIDAS score today which reflects the past three months was 232. Over the past three months her average subjective pain severity scale was (0 - 10) 9. The following portions of the patient's history were reviewed and updated as appropriate: allergies,current medications, family history, medical history, social history, surgical history and problem list. REVIEW OF SYSTEMS: Constitutional: Positive for fatigue, loss of appetite and night sweats. Eyes: Positive for visual problems. ENT: Positive for sinus congestion. Cardiovascular: Positive for chest pain, pressure or tightness, rapid or fluttering heart beat and shortness of breath when lying flat. Gastrointestinal: Positive for constipation, diarrhea, heartburn, nausea and vomiting. Musculoskeletal: Positive for back pain and muscle pain/stiffness. Neurological: Positive for light-headedness, excessive daytime sleepiness and headaches. Psychiatric/Behavioral: Positive for excessive daytime sleepiness/tiredness and feeling nervous, anxious, or on edge in past two weeks. All other systems reviewed and are negative. The following systems were negative: Skin, Respiratory, , Hematologic OBJECTIVE PHYSICAL EXAM For details of the neurologic examination, please see the neurologic examination form. ASSESSMENT / PLAN Ms. Franco's clinical history and neurological examination today suggest that she suffers from the following diagnoses for which I am suggesting the listed diagnostics and therapy: DIAGNOSES: #1 Chronic migraine without aura treatment refractory The presence of the above comorbid diagnoses increases the complexity of the management of the patient's headaches. Treatment Recommendations over the next few months: For further investigation of Ms. Franco's headaches or comorbid disorders I am suggesting additional testing which includes: no testing recommended at this visit. Recommended therapies for acute treatment of mild to moderate headache: Naprosyn and moderate to severe headache: Sumatriptan 6 mg sc and promethazine 25 mg Preventative therapies recommended: Botulinum toxin injections I am suggesting that she stop Emgality for now. Total time including >50% counselling time: 60 minutes Ms. Franco was given written instructions for the dosing and titration and the common side effects of these medications. I attempted to answer any questions that she had regarding her headaches and the proposed treatment. Patient education: The patient was ready to learn and had no apparent learning barriers. Their learning preferences include listening. The diagnosis and treatment plans were explained and the patient expressed understanding of the content. Total time including >50% counselling time: 60 minutes MATIC PRINT DEVELOPER documented in this encounter Plan of Treatment Scheduled Referrals Name Type Priority Associated Diagnoses Order S chedule Video anyplace Outpatient Referral Routine Migraine Headache E xpected: visit Chronic 06/30/2021 (Approximate), Expires: 06/30/2022 documented as of this encounter Visit Diagnoses Diagnosis Migraine Headache Chronic - Primary Migraine Headache Headache Unspecified documented in this encounter Additional Health Concerns Assessment Noted Time PHQ-9 Depression Total Score: 5 04/01/2021 12:27 PM CS T documented as of this encounter Care Teams Wholesale Account Executive Relationship Specialty Start Date End Date Therese Lock P.A.Maximiliano., P.A. PCP - General Family Medicine 1 09/26/21 documented as of this encounter
[2022-01-23 23:56] LABS: Basophils Absolute Auto 0.05 K/uL (0.00-0.30); Basophils Percent Auto 0.5 % (0.0-3.0); Eosinophils Absolute Auto 0.21 K/uL (0.00-0.50); Hematocrit 38.8 % (33.0-51.0); Immature Granulocytes Abs Auto 0.03 K/uL (0.00-0.30); Lymphocytes Absolute Auto 3.05 K/uL (0.90-2.90); Mean Corpuscular HGB Conc 34 gm/dL (32-36); Mean Corpuscular Hemoglobin 29 pg (26-34); Mean Corpuscular Volume 87 fL (80-100); Monocytes Percent Auto 9.9 % (0.0-11.0); Neutrophils Absolute Auto 6.12 K/uL (1.7-7.0); Neutrophils Percent Auto 58.3 % (42.0-72.0); Platelet Count* 373 K/uL (140-440); RDW Coefficient of Variation % 13.1 % (11.5-15.5); Red Blood Count 4.46 m/uL (4.00-5.20)
--- OUTSIDE RECORDS SUMMARY | 2022-01-23 23:56 | XMS_ITS | Encounter Summary ---
:1985 Author Organization [facility] Address [address] [place] [id number] Care Team Providers Name Role Phone Mer Hoang APRN C.N.PClarisa, D.N.P. Primary Care Provider Reason for Referral Outpatient (Routine) - Closed Specialty Diagnoses / Procedures Referred By Contact Refer red To Contact Family Medicine Therese Lock P.A.-C.[facility] [address] [place] [address] Referral ID Status Reason Start Date Expiration Date Visits Requ ested Visits Authorized [id number] Closed 02/20/2021 02/20/2022 1 1 Scheduling Instructions 30 min visit Reason for Visit Reason Comments Follow-up On headaches/migraines. Pt w as put on a new medication called Emgality and has been experiencing a coug h for the last week which is a possible side effect. Pt has also been fee ling an increase in anxiety and has been vomiting and nauseous for th e last 2 days. Appointment Request (Routine) - Closed Specialty Diagnoses / Procedures Referred By Contact Refer chelly To Contact Family Medicine Referral ID Status Reason Start Date Expiration Date Visits Requ ested Visits Authorized [id number] Closed 02/19/2021 02/19/2022 1 1 Encounter Details Date Type Department Care Team Description 02/20/2021 Office Visit Department of [facility] Therese Lock Anx iety (Primary Dx); [facility], [facility], in [address] [phone] Social History Tobacco Use Types Packs/Day Years Used Date Smoking Tobacco: Never Smokeless Tobacco: Never Alcohol Habits Answer Date Recorded How often [...] More than 4 times per year 05/31/2021 roman catholic services? Do you belong to any clubs [...] or slept in a fci (including now)? Sex Assigned at Date Recorded Female 01/23/2021 7:15 AM CDT documented as of this encounter Last Filed Vital Signs Vital Sign Reading Time Taken Comments Blood Pressure 126/89 02/20/2021 2:24 PM CDT Pulse 116 02/20/2021 2:24 PM CDT Temperature 36.9 ??C (98.4 ??F) 02/20/2021 2:24 PM CDT Respiratory Rate 16 02/20/2021 2:24 PM CDT Oxygen Saturation 98% 02/20/2021 2:24 PM CDT Inhaled Oxygen Concentration - - Weight 79.8 kg (175 lb 14.8 oz) 02/20/2021 2:24 PM CDT Height - - Body Mass Index 32.37 02/14/2021 9:55 AM CDT documented in this encounter Patient Instructions Patient InstructionsTherese Lock P.A.-C., P.A. - 02/20/2021 2:30 PM CDT Anxiety plan: 1. Celexa 10mg daily with breakfast 2. Hydroxyzine for breakthrough anxiety 25mg (1 tablet) every 6 hours 3. Ativan if all else fails - 1/2 tab initially, repeat 1/2 tab in 15-20 min if no improvement Bedtime plan: Melatonin 5-10mg Hydroxyzine at bedtime 1-2 (25-50mg) Ativan if all else fails Good sleep hygiene includes going to bed only when tired, avoiding activities with light (phone use or watching TV 30 minutes prior to attempting to go to sleep), making the bed a place for only sleep,and utilizing relaxation techniques at bedtime such as a warm shower or meditation. Medications overthe counter including melatonin and methods to help relax the body and mind to stop the racing thoughts that occur were also discussed. documented in this encounter Progress Notes Therese Lock P.A.-C., P.A. - 02/20/2021 2:30 PM CDT SUBJECTIVE CHIEF COMPLAINT/REASON FOR VISIT Noa Franco is a 35 y.o. female who presents for evaluation of Follow- up (On headaches/migraines. Pt was put on a new medication called Emgality and has been experiencing a cough for the last week which is a possible side effect. Pt has also been feeling an increase in anxiety and has been vomiting and nauseous for the last 2 days.). HISTORY OF PRESENT ILLNESS Noa is a 35-year-old female who presents today for ongoing migraine follow- up. She is now presenting today with worsening anxiety symptoms. She currently is following with an outside clinic for her neurology team. She has undergone a brain MRI and venogram which were both negative. She also had ahead CT which was also negative. She is currently on Emgality for her migraines which started in about December. She has not noted any improvement on this medication. She has previously tried and failed gabapentin, Topamax due to fatigue, propranolol due to hypotension and bradycardia. She was also on Nurtec which was helping, but most recently she has not felt this has been beneficial within the last few days. We did trial amitriptyline, but she did not take this medication as she was worried about side effects. She presents today with worsening anxiety over the last 3-4 days. She states she has had difficulty sleeping and been more tearful throughout the day. She has been using her lorazepam as needed to helpher with her symptoms. Initially, she found that this was helpful, but she would like to take something that is safer long-term. She states her mom, brother an and are all doing well on Celexa. She haspreviously tried SSRIs during and found that they made her anxiety worse. She has never tried Celexa. Tomorrow, she is meeting with a new neurologist at the headache clinic at [facility]. PHYSICAL EXAMINATION Vital Signs: BP 126/89 (BP Location: Left arm, Patient Position: Sitting, Cuff Size: Regular) Pulse (!) 116 Temp 36.9 ??C (Temporal) Resp 16 Wt 79.8 kg LMP 02/16/2021 (Exact Date) SpO2 98% BMI 32.37 kg/m?? Body mass index is 32.37 kg/m??. General: This patient is alert and in no acute distress. Psych: Behavior, mood, affect, cognition and insight are all appropriate. Tearful at times. ASSESSMENT / PLAN 1. Anxiety Initiated Celexa 10mg daily. Also provided her with hydroxyzine for break through anxiety and lorazepam to be used sparingly. Discussed good sleep hygiene techniques as well. She can continue to use melatonin 5-10 mg at bedtime as well. 2. Migraine Headache Patient establishing care with [facility] tomorrow. Patient was instructed to follow up in [...] plan. Patient/Child/Caregiver expressed understanding of the content. Total time: 24 minutes Therese Lock P.A.-C., P.A. documented in this encounter Plan of Treatment Scheduled Referrals Name Type Priority Associated Diagnoses Order S [facility] Outpatient Referral Routine Expec sravanthi: office visit 03/06/2021 (clinic) (Approximate), Expires: 02/21/2024 documented as of this encounter Visit Diagnoses Diagnosis Anxiety - Primary Migraine Headache documented in this encounter Additional Health Concerns Assessment Noted Time PHQ-9 Depression Total Score: 3 01/23/2021 9:58 AM CDT documented as of this encounter Care Teams Manager Diesel Relationship Specialty Start Date End Date Mer Hoang APRN, C.N.P., D.N.P. PCP - General 03/27/19 02/26/[address] [place] [phone] documented as of this encounter
--- OUTSIDE RECORDS SUMMARY | 2022-01-23 23:56 | XMS_ITS | Encounter Summary ---
:1985 Author Organization [facility] Address [address] [place] [address] Care Team Providers Name Role Phone Mer Hoang APRN C.N.PClarisa, D.N.P. Primary Care Provider Reason for Referral Outpatient (Routine) - Closed Specialty Diagnoses / Procedures Referred By Contact Refer red To Contact Emergency Medicine Diagnoses Headache Unspecified Koby Moran, [facility] P.[facility]C. [address] [phone] Referral ID Status Reason Start Date Expiration Date Visits Requ ested Visits Authorized [id number] Closed 02/07/2021 02/07/2022 1 1 Reason for Visit Reason Comments Headache Encounter Details Date Type Department Care Team Description 02/07/2021 Emergency [place] [facility] Koby Moran, Headache Unspecified Department P.A.-C. (Primary Dx) [address] [phone] [place], [place] [phone] Social History Tobacco Use Types Packs/Day [...] More than 4 times per year 05/31/2021 restorationism services? Do you belong to any clubs or Yes 05/31/2021 organizations such as zoroastrian groups, unions, fraternal or athletic groups, or [...] or slept in a prison (including now)? Sex Assigned at Date Recorded Female 01/23/2021 7:15 AM CDT documented as of this encounter Last Filed Vital Signs Vital Sign Reading Time Taken Comments Blood Pressure 119/77 02/07/2021 2:00 AM CDT Pulse 82 02/07/2021 2:00 AM CDT Temperature - - Respiratory Rate - - Oxygen Saturation 100% 02/07/2021 2:00 AM CDT Inhaled Oxygen Concentration - - Weight 80 kg (176 lb 5.9 oz) 02/07/2021 1:39 AM CDT Height - - Body Mass Index 33.21 02/06/2021 10:34 PM CDT documented in this encounter Medications at Time of Discharge Medication Sig Dispensed Refills Start Date End Date acetaminophen (TYLENOL) Take 650 mg by 0 04/11/20 19 325 mg tablet mouth as needed. CHOLECALCIFEROL, VITAMIN Take 1 tablet by 0 11/05 D3, (VITAMIN D3 ORAL) mouth daily. ibuprofen (ADVIL,MOTRIN) 600 mg as needed. 0 12/27 600 mg tablet PNV NO.95/FERROUS Take 1 capsule by 0 11/05/2016 FUM/FOLIC AC ( mouth daily. MULTIVITAMINS ORAL) sennosides-docusate sodium 8.6-50 tablets as 0 (SENOKOT-S) 8.6-50 mg per needed. tablet amoxicillin (AMOXIL) 500 500 capsules. 0 01/21/20 21 02/20/2021 mg capsule fluconazole (DIFLUCAN) 150 Take 1 tablet (150 2 tablet 0 0 01/23/2021 09/12/2021 mg tablet mg total) by mouth See Admin Instructions. Take one tab now. Repeat in 7 days if symptoms persist. LORazepam (ATIVAN) 0.5 mg 0.5 mg. 0 01/15/2021 02/11/2021 tablet Nurtec ODT 75 mg 0 02/06/2021 06/24/19 22 disintegrating tablet ondansetron (ZOFRAN) 4 mg 4 mg. 0 01/15/2021 03/26/2021 tablet oxyCODONE (Roxicodone) 5 Take 5-10 mg by 0 201802/20/2021 mg immediate release mouth. tablet oxyCODONE-acetaminophen Take 1-2 tablets by 0 02/20/2021 (PERCOCET) 5-325 mg per mouth every 6 (six) tablet hours as needed. rizatriptan (MAXALT) 10 mg 10 mg. 0 1 02/28/2021 tablet documented as of this encounter ED Notes Koby Moran P.A.-C. - 02/07/2021 2:06 AM CDT SUBJECTIVE CHIEF COMPLAINT/REASON FOR VISIT Headache HISTORY OF PRESENT ILLNESS 35-year-old female presents ER with complaints of continuing headache for a little over 30 days now.Patient states that she has been seen multiple times in multiple emergency departments, multiple times by Neurology with mild to limited relief. She underwent IV infusion ordered by her neurologist today. She also underwent nerve blocks by Neurology today with moderate relief. She states those treatments do not completely alleviate the pain that she experiences behind her eyes. Patient was seen in the ER this evening at [facility] in [place] where she underwent CT scan. CT scan shows no acute intracranial findings according to the report. Patient states that she got tired of waiting in the emergency department [place] and decided to come to our facility. She has not found anything else in particular seems to make the symptoms better or worse. REVIEW OF SYSTEMS Constitutional: Negative for appetite change and fever. HENT: Negative for ear pain, rhinorrhea and sore throat. Eyes: Negative for visual disturbance. Respiratory: Negative for cough, shortness of breath and wheezing. Cardiovascular: Negative for chest pain. Gastrointestinal: Negative for abdominal pain, diarrhea and vomiting. Genitourinary: Negative for dysuria and frequency. Musculoskeletal: Negative for back pain. Skin: Negative for rash. Neurological: Positive for headaches. Negative for dizziness, seizures, syncope, speech difficulty, weakness, numbness and loss of balance. All other systems reviewed and are negative. OBJECTIVE Initial Vitals Temp Pulse Rate Heart Rate Resp Blood Pressure SpO2 -- 02/07/21137 -- -- 02/07/218 02/07/21137 91 134/87 100 % Pain Score 02/07/21 0151 9 PHYSICAL EXAMINATION Constitutional: Nursing note and vitals reviewed. HENT: Head: Normocephalic and atraumatic. Nose: Nose normal. Mouth/Throat: Oropharynx is clear and moist. Mucous membranes are moist. Neck: Neck supple. Cardiovascular: Normal rate, regular rhythm, S1 normal, S2 normal and normal heart sounds. Pulmonary/Chest: Effort normal and breath sounds normal. Abdominal: Soft. Bowel sounds are normal. There is no abdominal tenderness. Musculoskeletal: Cervical back: Neck supple. Neurological: Alert and oriented to person, place, and time. She has normal sensation, normal strength and intact cranial nerves. Normal speech. Displays a normal Romberg Test. Gait normal. Skin: Skin is warm. ASSESSMENT/PLAN IMPRESSION AND PLAN 35-year-old female presents ER with complaints of continuing headache for a little over 30 days now.Patient states that she has been seen multiple times in multiple emergency departments, multiple times by Neurology with mild to limited relief. She underwent IV infusion ordered by her neurologist today. She also underwent nerve blocks by Neurology today with moderate relief. She states those treatments do not completely alleviate the pain that she experiences behind her eyes. Patient was seen in the ER this evening at [facility] in [place] where she underwent CT scan. CT scan shows no acute intracranial findings according to the report. Patient states that she got tired of waiting in the emergency department [place] and decided to come to our facility. No focal neurologic deficits on exam in the ER this evening. Patient states that her outpatient neurologist advised her that she should present to the ER for admission. She presented to the [place] ER where CT scan was obtained, the patient did not want to wait at that facility for results and choseto arrive at our ER. She is agreeable to trial of a different medication regimen in the ER this evening to see if she gets results. Based on her history, physical exam, CT findings, and vital signs here I do not suspect meningitis, intracranial bleed, increased intracranial pressure, infection, or neoplasm. Patient displays no focal neurologic deficits. Patient is adamant that she wants to be admitted at this facility, however no inpatient beds are currently available, and there is no neurology service at this facility. Patient states that she does not wish to return to [facility] either. She does appear to be stable for continued care and investigation as an outpatient with her neurologist. We discussed all treatment options including admission at this facility, transfer to [place], patient returning to [place], continuing care with her neurologist as an outpatient, or referral to neurology clinic in [place]. I have placed outpatient referral to neurologist. I have encouraged the patient to return to this facility or return to the closest ER if new symptoms develop, current symptoms worsen, or patient becomes concerned. She will continue to work closely with her outpatient neurologist while awaiting neurology appointment with [facility]. I reviewed previous medical records including documentation from previous visits, lab results and radiology images/report. I reviewed the radiology report(s), with the following comments: CT scan reveals no acute intracranial abnormalities. Final Diagnoses: as of Feb 08 220 Headache Unspecified Koby Moran, Yoanna.Maximiliano. 02/07/21219 Fidelina Peralta, R.N. - 02/07/2021 1:46 AM CDT Patient states she has been having one solid headache for the last 34 days. She states nothing has made this better nor worse. It stays the same. Patient states she is unable to sleep due the pain in her head. She states she has been seeing neurology and has had infusions, and blocks done however thisis not found to be helpful. Provider at bedside. Fidelina Peralta R.N. 02/07/21 0148 documented in this encounter Plan of Treatment Scheduled Referrals Name Type Priority Associated Diagnoses Order S chedule POST ED VISIT Outpatient Referral Routine Headache Unspecified Expected: Neurology 02/07/2021 (Approximate), Expires: 02/08/2024 documented as of this encounter Visit Diagnoses Diagnosis Headache Unspecified - Primary documented in this encounter Administered Medications Inactive Administered Medications - up to 3 most recent administrations Medication Order MAR Action Action Date Dose Rate Site diphenhydrAMINE injection Given 02/07/2021 2:20 50 mg Left Ventrogluteal 50 mg (BENADRYL) AM CDT 50 mg, intramuscular, Once, On [place] 02/07/21 at 0207, For 1 dose promethazine injection 25 mg Given 02/07/2021 2:17 AM CDT 25 mg Left Ventrogluteal (PHENERGAN) 25 mg, intramuscular, Once, On [place]rella 02/07/21 at 0207, For 1 dose SUMAtriptan injection 6 mg Given 02/07/2021 2:22 AM CDT 6 mg Right Upper Buttock (IMITREX) 6 mg, subcutaneous, Once, On [place]rella 02/07/21 at 0207, For 1 dose, May repeat dose once in 1 hour if migraine unresolved. Do not exceed 12 mg in 24 hours. documented in this encounter Active and Recently Administered Medications Times are shown in CDT. Scheduled Medication Order 02/05/2021 02/06/2021 02/07/2021 diphenhydrAMINE injection 50 mg (BENADRYL) (COMPLETED) 022 (Given - Provider: Fidelina Peralta R.N.) 50 mg, intramuscular, Once, On [place]rella 02/07/21 at 0207, For 1 dose promethazine injection 25 mg (PHENERGAN) (COMPLETED) 0217 (Given - Provider: Fidelina Peralta R.N.) 25 mg, intramuscular, Once, On [place]rella 02/07/21 at 0207, For 1 dose SUMAtriptan injection 6 mg (IMITREX) (COMPLETED) 221 (Given - Provider: Fidelina Peralta R.N.) 6 mg, subcutaneous, Once, On Estrella 1 at 0207, For 1 dose, May repeat dose once in 1 hour if migraine unresolved. Do not exceed 12 mg in 24 hours. documented in this encounter Additional Health Concerns Assessment Noted Time PHQ-9 Depression Total Score: 3 01/23/2021 9:58 AM CDT documented as of this encounter Care Teams Incising Machine Operator Relationship Specialty Start Date End Date Mer Hoang APRN, C.N.P., D.N.P. PCP - General 03/27/19 02/26/[address] [place] [phone] documented as of this encounter
--- OUTSIDE RECORDS SUMMARY | 2022-01-23 23:56 | XMS_ITS | Encounter Summary ---
:1985 Author Organization [facility] Address [address] [place] [address] Care Team Providers Name Role Phone Therese Lock P.A.-C. P.AClarisa Primary Care Provider Unavaila ble Reason for Visit Reason Comments Anxiety MELVIN Nurse Jessica Encounter Details Date Type Department Care Team Description 02/27/2021 Nurse Triage Department of [facility] Nirali Perkins; MELVIN Nurse Medicine, Yvan Reagan R.N. [facility], in [address] [place] [phone] [place] [address] [place] [phone] Social History Tobacco Use Types Packs/Day [...] More than 4 times per year 05/31/2021 lutheran services? Do you belong to any clubs [...] place to sleep or slept in a group home (including now)? Sex Assigned at Date Recorded Female 01/23/2021 7:15 AM CDT documented as of this encounter Miscellaneous Notes Telephone Encounter - Nirali Perkins R.N. - 02/27/2021 11:05 AM CDT Chief Complaint / Reason for Call Patient is a 35 y.o. female calling regarding Anxiety and COVID Nurse Line. Assessment Concern: She feels very anxious. I can't handle this. I can't do this. She denies a plan to kill herself. She has thoughts of killing herself. Reviewed clinical communication from 02.26.2021. Patient explains the same anxiety like symptoms as written in details on 02.26.2021 except she now has thought of killing herself. Denies any thought of hurting someone else or hurting someone else. She states she is able to function if she takes the ativ an. When the ativan starts to fade her symptoms of panic attack return (heart racing, shaking, unsteady feeling (dizzy), Present for: Follow up from provider appointment on 02.20.2021 Home cares tried: Hydroxyzine, Ativan, Celexa, resting/laying down, controlled breathing. Calling to request: Advice The recommended disposition is Go to ED Now (or PCP Triage). Reason for Disposition ??? Patient sounds very sick or weak to the triager Protocols used: ANXIETY AND PANIC [id number] Care Advice Patient/Caregiver understands and will follow care advice?: Yes, able to teach back GO TO ED NOW You need to be seen within the next hour. Go to the ED/UCC at nearest Hospital. Leave as soon as youcan. ANOTHER ADULT SHOULD DRIVE: * It is better and safer if another adult drives instead of you. documented in this encounter Plan of Treatment Not on filedocumented as of this encounter Visit Diagnoses Not on filedocumented in this encounter Additional Health Concerns Assessment Noted Time PHQ-9 Depression Total Score: 3 01/23/2021 9:58 AM CDT documented as of this encounter Care Teams Choke Setter Relationship Specialty Start Date End Date Therese Lock P.A.-C., P.A. PCP - General Family Medicine 1 09/26/21 documented as of this encounter
--- OUTSIDE RECORDS SUMMARY | 2022-01-23 23:56 | XMS_ITS | Encounter Summary ---
:1985 Author Organization [facility] Address [address] [place] [address] Care Team Providers Name Role Phone Mer Hoang APRN C.N.P., D.N.P. Primary Care Provider Reason for Visit Reason Comments Headache Follow up from 01/23 visit. A ll previous treatments for migraines are not working. Waking her up at ght and making her anxious as well. Continuous headache for at least 6 week s. Outpatient (Routine) - Closed Specialty Diagnoses / Procedures Referred By Contact Refer red To Contact Family Medicine Therese Lock P.A.-C., [facility] [address] [place] [address] Referral ID Status Reason Start Date Expiration Date Visits Requ ested Visits Authorized [id number] Closed 01/23/2021 01/23/2022 1 1 Encounter Details Date Type Department Care Team Description 02/14/2021 Office Visit Department of [facility] Therese Lock Mig raine Headache Medicine, [facility], in [address] [phone] Social History Tobacco Use Types Packs/Day Years [...] or relatives? How often do you attend hindu or More than 4 times per year 05/31/2021 druze services? Do you belong to any clubs or Yes 05/31/2021 organizations such as hindu groups, unions, fraMeetyl or athletic groups, or school groups? How [...] or slept in a penitentiary (including now)? Sex Assigned at Date Recorded Female 01/23/2021 7:15 AM CDT documented as of this encounter Last Filed Vital Signs Vital Sign Reading Time Taken Comments Blood Pressure 117/82 02/14/2021 9:55 AM CDT Pulse 93 02/14/2021 9:55 AM CDT Temperature 36.4 ??C (97.5 ??F) 02/14/2021 9:55 AM CDT Respiratory Rate 22 02/14/2021 9:55 AM CDT Oxygen Saturation 99% 02/14/2021 9:55 AM CDT Inhaled Oxygen Concentration - - Weight 79.7 kg (175 lb 11.3 oz) 02/14/2021 9:55 AM CDT Height 157 cm (5' 1.81) 02/14/2021 9:55 AM CDT Body Mass Index 32.33 02/14/2021 9:55 AM CDT documented in this encounter Patient Instructions Patient InstructionsTherese Lock P.A.-C., P.A. - 02/14/2021 10:00 AM CDT Start amitriptyline 10mg at bedtime for one week, increase to 20mg at bedtime thereafter -keep me posted if any side effects Lyme testing today documented in this encounter Progress Notes Therese Lock P.A.-C., Jimmie - 02/14/2021 10:00 AM CDT SUBJECTIVE CHIEF COMPLAINT/REASON FOR VISIT Noa Franco is a 35 y.o. female who presents for evaluation of Headache (Follow up from 01/23 visit. All previous treatments for migraines are not working. Waking her up at night and making heranxious as well. Continuous headache for at least 6 weeks. ). HISTORY OF PRESENT ILLNESS Noa is a pleasant 35-year-old female who presents today for follow-up on her chronic migraine headaches. She has been continuing to follow with the outside neurologist and recently started on and gal he injections 2 days ago. She did trial the Topamax after our last visit but unfortunately had significant fatigue on this medication and had to discontinue. We then trialed a course of propranolol but unfortunately her blood pressure dropped into the 90s over 50s and she developed dizziness. She vijaya the only medication that has helped her thus far is a disintegrating tablet provided by her neurologist called Sandee. She states her headache will go from constant severe pain to periods of just a d ull ache. She was admitted at [facility] since our last in-person visit as well. They told her to havea 2nd opinion with the headache clinic at [facility]. She is meeting with them next week. Of note, when thinking back the patient does state that she felt ill in early December after traveling to [place]. She states she has picked ticks off of her children and dogs this year and her has a history of Lyme. She is inquiring about a tick-borne illness blood test today. She denies any new cardiac symptoms such as palpitations. She is having occasional night sweats, fatigue and neck pain. She denies any history of a bull's-eye rash and has not found a tick on herself recently, albeit she has not been checking. PHYSICAL EXAMINATION Vital Signs: BP 117/82 (BP Location: Left arm, Patient Position: Sitting, Cuff Size: Regular) Pulse 93 Temp 36.4 ??C Resp 22 Ht 157 cm Wt 79.7 kg SpO2 99% BMI 32.33 kg/m?? Body mass indexis 32.33 kg/m??. General: This patient is alert and in no acute distress. HEENT: Pupils are PERRLA, conjunctivae clear without hemorrhages or exudates. Musculoskeletal: Grossly intact, no deformities are noted. Psych: Behavior, mood, affect, cognition and insight are all appropriate. ASSESSMENT / PLAN 1. Migraine Headache Lyme test ordered for the patient today. Recommended trialing a course of amitriptyline 10 mg at bedtime for 1 week and she can titrate this up to 20 mg thereafter as tolerated. She will continue to refill her Nurtec through the neurologist. She will follow-up on the portal if she has any additional qu estions or concerns. - Lyme Ab Modified 2-Tier w/Reflex, S Patient was instructed to follow up in [...] expressed understanding of the content. Total time: 28 minutes Therese Lock P.A.-C., P.A. documented in this encounter Plan of Treatment Not on filedocumented as of this encounter Procedures Procedure Name Priority Date/Time Associated Diagnosis Comme nts LYME AB MODIFIED Routine 02/14/2021 10:27 AM Migraine Headache Results for this 2-TIER W/REFLEX, S CDT procedure are in the results section. documented in this encounter Results Lyme Ab Modified 2-Tier w/Reflex, S (02/14/2021 10:27 AM CDT) P athologist Signature Lyme Ab Negative Negative 02/15/2021 ECLR Modified 11:44 AM CDT 2-Tier w/Reflex, S Comment: Negative for antibodies to the Borrelia (Borreliella) species causing Lyme disease. ??Negative results may occur in recently infected (<=14 days) patient s. If recent infection is suspected, repeat testing on a new sample collected in 7-14 days i s recommended. Specimen Anatomical Collection Method Collection Time Receive d Time (Source) Location / / Volume Laterality Blood (Blood, 02/14/2021 10:27 02/14/2021 3:55 Venous) AM CDT PM CDT Therese Lock P.A.-C., P.A. LAB MICROBIOLOGY - BLOOD ORDERABLES Performing Organization Address City/State/ZIP Code Phon e Number [facility]- [address] [place] [phone] [facility] [place] [address] System [address] documented in this encounter Visit Diagnoses Diagnosis Migraine Headache - Primary documented in this encounter Additional Health Concerns Assessment Noted Time PHQ-9 Depression Total Score: 3 01/23/2021 9:58 AM CDT documented as of this encounter Care Teams User Experience Designer Relationship Specialty Start Date End Date Mer Hoang APRN, C.N.P., D.N.P. PCP - General 03/27/19 02/26/[address] [place] [phone] documented as of this encounter
--- OUTSIDE RECORDS SUMMARY | 2022-01-23 23:56 | XMS_ITS | Encounter Summary ---
:1985 Author Organization [facility] Address [address] [place] [address] Care Team Providers Name Role Phone Therese Lock P.A.-C., P.A. Primary Care Provider Unavaila ble Reason for Referral Outpatient (Routine) - Closed Specialty Diagnoses / Procedures Referred By Contact Refer red To Contact Family Medicine Therese Lock P.A.-C.[facility] [address] [place] [address] Referral ID Status Reason Start Date Expiration Date Visits Requ ested Visits Authorized [id number] Closed 02/28/2021 02/28/2022 1 1 Scheduling Instructions 30 min visit Reason for Visit Reason Comments Post Ed Visit Follow-up Seen 02/27/21 Go over meds Appointment Request (Routine) - Closed Specialty Diagnoses / Procedures Referred By Contact Mery spaulding To Contact Family Medicine Referral ID Status Reason Start Date Expiration Date Visits Requ ested Visits Authorized [id number] Closed 02/28/2021 02/28/2022 1 1 Encounter Details Date Type Department Care Team Description 02/28/2021 Office Visit Department of [facility] Therese Lock Anx iety (Primary Dx); Medicine, Milo Dea, P.A. [facility], in [address] [phone] Social History Tobacco Use Types Packs/Day Years [...] More than 4 times per year 05/31/2021 worship services? Do you belong to any clubs [...] place to sleep or slept in a snf (including now)? Sex Assigned at Date Recorded Female 01/23/2021 7:15 AM CDT documented as of this encounter Last Filed Vital Signs Vital Sign Reading Time Taken Comments Blood Pressure 107/76 02/28/2021 9:55 AM CDT Pulse 85 02/28/2021 9:55 AM CDT Temperature 36.1 ??C (97 ??F) 02/28/2021 9:55 AM CDT Respiratory Rate 22 02/28/2021 9:55 AM CDT Oxygen Saturation 98% 02/28/2021 9:55 AM CDT Inhaled Oxygen Concentration - - Weight 77.7 kg (171 lb 4.8 oz) 02/28/2021 9:55 AM CDT Height - - Body Mass Index 31.52 02/14/2021 9:55 AM CDT documented in this encounter Patient Instructions Patient InstructionsTherese Lock P.A.-C., PClarisaA. - 02/28/2021 10:00 AM CDT Klonipin in the AM, buspar 5mg in the PM Followup in one week documented in this encounter Progress Notes Therese Lock P.A.-C., P.A. - 02/28/2021 10:00 AM CDT SUBJECTIVE CHIEF COMPLAINT/REASON FOR VISIT Noa Franco is a 35 y.o. female who presents for evaluation of Post Ed Visit Follow-up (Seen 02/27/21 Go over meds ). HISTORY OF PRESENT ILLNESS Noa is a pleasant 35-year-old female who presents today for post ER follow- up. She has been suffering from migraines and worsened anxiety from her migraines for the last few months. She is seeing aneurologist at a headache clinic at [facility] in [facility] she is just now finally starting to see some improvement with the migraines within the past few days. Unfortunately, we did start her on Celexa at her last visit in this did make her anxiety significantly worse. She went to the ER for panic attack yesterday and was started on Klonopin 1 mg once daily. She is discontinue her Celexa and hydroxyzine at this time. She felt the hydroxyzine made her extremely tired. She otherwise is sleeping well. She continues to have good support from her family in her [id number] is coming to live with them to help take care of her 3 children while she continues to undergo migraine and anxiety management. PHYSICAL EXAMINATION Vital Signs: BP 107/76 (BP Location: Left arm, Patient Position: Sitting, Cuff Size: Regular) Pulse 85 Temp 36.1 ??C Resp 22 Wt 77.7 kg LMP 02/16/2021 (Exact Date) SpO2 98% BMI 31.52 kg/m?? Body mass index is 31.52 kg/m??. General: This patient is alert and in no acute distress. Musculoskeletal: Grossly intact, no deformities are noted. Skin: Normal color, temperature and moisture, no rashes or lesions are noted. Neuro: CN II-XII grossly intact. Psych: Behavior, mood, affect, cognition and insight are all appropriate. ASSESSMENT / PLAN 1. Anxiety Reviewed a simplistic plan with the patient today for her worsening anxiety. She is now off of her Celexa and hydroxyzine. Encouraged her to continue off of these and we will change to BuSpar 5 mg oncedaily and alternating time from her Klonopin 1 mg. Discussed that if she has having significant anxiety over the weekend that she could repeat her Klonopin dose later in the day if needed. We will follow up in clinic in 1 week. We discussed that the ultimate goal will be to titrate off of her benzodiazepines in the near future. 2. Migraine Headache Patient overall feels her migraines are improving on the M gallop the and tizanidine at bedtime. Shehas not yet tried the DHE spray. She continues on the Nurtec as needed as well. Patient was instructed to follow up in [...] expressed understanding of the content. Total time: 25 minutes Therese Lock P.A.-C., P.A. documented in this encounter Plan of Treatment Scheduled Referrals Name Type Priority Associated Diagnoses Order [facility] Outpatient Referral Routine Expec sravantih: office visit 03/07/2021 (clinic) (Approximate), Expires: 02/29/2024 documented as of this encounter Visit Diagnoses Diagnosis Anxiety - Primary Migraine Headache documented in this encounter Additional Health Concerns Assessment Noted Time PHQ-9 Depression Total Score: 3 01/23/2021 9:58 AM CDT documented as of this encounter Care Teams Power Distribution Engineer Relationship Specialty Start Date End Date Therese Lock P.A.-C., P.A. PCP - General Family Medicine 1 09/26/21 documented as of this encounter
--- OUTSIDE RECORDS SUMMARY | 2022-01-23 23:56 | XMS_ITS | Encounter Summary ---
:1985 Author Organization [facility] Address [address] [place] [address] Care Team Providers Name Role Phone Therese Lock PClarisaARosalino., P.A. Primary Care Provider Unavaila ble Reason for Visit Reason Comments Anxiety Pt presents to ED with anxie ty and headache. Pt reports seeing a neurologist for 7week headache and prima ry care for anxiety. Encounter Details Date Type Department Care Team Description 02/27/2021 Emergency [facility] Merritt Zacarias Anxiety (Primary Dx); Department P.A.-C. Migraine Headache [address] [place] [address] [address] [place] [phone] (Wo rk) Social History Tobacco Use Types [...] or relatives? How often do you attend hoahaoism or More than 4 times per year 05/31/2021 gnosticism services? Do you belong to any clubs or Yes 05/31/2021 organizations such as hoahaoism groups, unions, fraternal or athletic groups, or [...] Sign Reading Time Taken Comments Blood Pressure 118/91 02/27/2021 1:30 PM CDT Pulse 78 02/27/2021 1:45 PM CDT Temperature 36 ??C (96.8 ??F) 02/27/2021 12:53 PM CDT Respiratory Rate 18 02/27/2021 1:15 PM CDT Oxygen Saturation 96% 02/27/2021 1:45 PM CDT Inhaled Oxygen Concentration - - Weight 77.5 kg (170 lb 13.7 oz) 02/27/2021 12:53 PM CDT Height - - Body Mass Index 31.44 02/14/2021 9:55 AM CDT documented in this encounter Discharge Instructions Discharge InstructionsWrMerritt gann P.A.-C. - 02/27/2021 2:22 PM CDT Please return to ED for worsening headache, vomiting, or any suicidal thoughts AttachmentsThe following attachments cannot be sent through Care Everywhere. Understanding Anxiety Disorders (Lithuanian)documented in this encounter Medications at Time of Discharge Medication Sig Dispensed Refills Start Date End Date acetaminophen (TYLENOL) Take 650 mg by 0 04/11/20 19 325 mg tablet mouth as needed. CHOLECALCIFEROL, VITAMIN Take 1 tablet by 0 11/05 D3, (VITAMIN D3 ORAL) mouth daily. ibuprofen (ADVIL,MOTRIN) 600 mg as needed. 0 12/27 600 mg tablet ondansetron ODT as needed. 0 02/09/2021 (ZOFRAN-ODT) 4 mg disintegrating tablet PNV NO.95/FERROUS Take 1 capsule by 0 11/05/2016 FUM/FOLIC AC ( mouth daily. MULTIVITAMINS ORAL) sennosides-docusate sodium 8.6-50 tablets as 0 (SENOKOT-S) 8.6-50 mg per needed. tablet busPIRone (BUSPAR) 7.5 mg Take 1 tablet (7.5 60 tablet 11 04/04/2021 tablet mg total) by mouth 2 (two) times a day. clonazePAM (KlonoPIN) 1 mg Take 1 tablet (1 mg 30 tablet 0 02/27/2021 03/26/2021 tablet total) by mouth daily. clonazePAM (KlonoPIN) 1 mg Take 1 tablet (1 mg 30 tablet 0 03/26/2021 12/25/2021 tablet total) by mouth daily. dihydroergotamine Migranal NS- 1 0 02/21/202109/2020 (MIGRANAL) 0.5 mg/pump spray each nostril act. (4 mg/mL) nasal spray at onset of typical headache. (tip head [...] return to 9 days per month maximum. dihydroergotamine 0 02/21/2021 021 (MIGRANAL) 0.5 mg/pump act. (4 mg/mL) nasal spray Emgality Pen 120 mg/mL every 30 (thirty) 0 202009/12/2021 injection days. fluconazole (DIFLUCAN) 150 Take 1 tablet (150 2 tablet 0 0 01/23/2021 09/12/2021 mg tablet mg total) by mouth See Admin Instructions. Take one tab now. Repeat in 7 days if symptoms persist. hydrOXYzine (ATARAX) 25 mg Take 25 mg by mouth 0 02/20/2021 05/31/2021 tablet as needed (for sleep). LORazepam (ATIVAN) 0.5 mg Take 0.5 mg by 0 202009/12/2021 tablet mouth as needed. LORazepam (ATIVAN) 1 mg Take 1 tablet (1 mg 14 tablet 0 02/28/2021 tablet total) by mouth 2 (two) times a day as needed for anxiety for up to 7 days. [facility] 0 02/06/2021 06/24/19 22 disintegrating tablet ondansetron (ZOFRAN) 4 mg 4 mg. 0 01/15/2021 03/26/2021 tablet rizatriptan (MAXALT) 10 mg 10 mg. 0 1 02/28/2021 tablet tiZANidine (ZANAFLEX) 2 mg Not taking 0 1 03/26/2021 tablet tiZANidine (ZANAFLEX) 2 mg 0 1 03/26/2021 tablet documented as of this encounter ED Notes Merritt Zacarias P.A.-C. - 02/27/2021 12:46 PM CDT Anxiety, SUBJECTIVE CHIEF COMPLAINT/REASON FOR VISIT Anxiety (Pt presents to ED with anxiety and headache. Pt reports seeing a neurologist for 7week headache and primary care for anxiety. ) HISTORY OF PRESENT ILLNESS Pt is a 35 year old female who presents to ED with concerns of anxiety, panic disorder and migraine headaches. Pt has been having seveer migraines for the past few months. She has been on multiple medications and is being seen at [facility] by neurology teams but is still unable to get the headaches under control. This has caused her to develop severe anxiety and panic attacks in a very complex loop. She follows up with a PCP through [facility] Yvan Alas, who has tried putting her on Lorazepam, hydroxyzine, and citalopram. She had previously been on lorazepam for several years which seemed to work well for her anxiety, but since the trouble with the headaches, she has been unable to control her anxiety and this seems to be contributing to the severity of her headaches. 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 The citalopram seems to have spiked her anxiety significantly, and is also impairing her ability to be involved with her kids without having any apparent benefit onher symptoms. She is tearful and very frustrated with this entire situation and feels it is taking all the good out of her life. REVIEW OF SYSTEMS Constitutional: Negative. HENT: Negative. Eyes: Negative. Respiratory: Negative. Negative for shortness of breath. Cardiovascular: Negative. Negative for chest pain and palpitations. Gastrointestinal: Negative. Negative for diarrhea and vomiting. Genitourinary: Negative. Skin: Negative. Neurological: Positive for headaches. Negative for dizziness, tremors, seizures, syncope, speech difficulty, weakness, numbness and loss of balance. Psychiatric/Behavioral: Positive for decreased concentration, depression and sleep disturbance. Negative for agitation, anorexic behavior, behavioral problems, confusion, hallucinations, homicidal ideas, self-injury and suicidal ideas. The patient is nervous/anxious. The patient is not hyperactive. OBJECTIVE Initial Vitals Temperature Pulse Rate Heart Rate Resp Rate Blood Pressure SpO2 02/27/21 1253 02/27/21 1253 -- 02/27/21 1253 02/27/21 1253 02/27/21 1253 36 ??C 91 20 (!) 136/101 98 % Pain Score 02/27/21 1256 7 PHYSICAL EXAMINATION Constitutional: Vitals reviewed. She is cooperative. HENT: Head: Atraumatic. Mouth/Throat: Mucous membranes are moist. Neck: Neck supple. Cardiovascular: Normal rate, regular rhythm, normal heart sounds, intact distal pulses and normal pulses. Capillary refill: takes less than 3 seconds, Pulmonary/Chest: Effort normal and breath sounds normal. Abdominal: Soft. Bowel sounds are normal and non-distended. There is no abdominal tenderness. Musculoskeletal: General: Normal range of motion. Cervical back: Neck supple. Neurological: Alert and oriented to person, place, and time. She has normal strength. She is not disoriented. No cranial nerve deficit. GCS eye subscore is 4. GCS verbal subscore is 5. GCS motor subscore is 6. Skin: Skin is warm and dry. Psychiatric: Behavior is normal. Judgment and thought content normal. Her mood appears anxious. Tearful. Speech is rapid and/or pressured. Cognition and memory are normal. She exhibits a depressed mood. Pt is anxious, depressed and tearful Despite this she makes good eye contact, is well spoken and well groomed and interacts very appropriately. She expresses a great deal of frustration at this situation and not knowing what to do about it ASSESSMENT/PLAN IMPRESSION AND PLAN 1) Anxiety 2) Migraine headaches -spoke at length with pt and mom, and it seems that the citalopram and atarax that she is on are actually worsening her situation and causing her anxiety to spike to a point where she is very very uncomfortable at all times. She remembers that when she was just on lorazepam prn she did not have any ofthese problems, and she seems to have been using it very sparingly and appropriately to control anxiety and panic attacks. Will stop hydroxyzine and citalopram and have her start taking clonidine 0.5-1mg PO prn for anxiety. Because this is longer acting it should provide a more significant benefit toher without the rapid decrease and spike in anxiety that she seems to be feeling with the lorazepam.She will follow up with PCP in the next week or so to recheck and see if this strategy is working, and is welcomed to return to ED for any new or worsening symptoms in the meantime. She has an excellent support network and denies any thoughts of self harm I reviewed previous medical records including documentation from previous visits. Final Diagnoses: as of 03/02/21828 Anxiety Migraine Headache Merritt Zacarias P.A.-C. 03/02/[address]28 documented in this encounter Plan of Treatment Not on filedocumented as of this encounter Visit Diagnoses Diagnosis Anxiety - Primary Migraine Headache documented in this encounter Administered Medications Inactive Administered Medications - up to 3 most recent administrations Medication Order MAR Action Action Date Dose Rate Site clonazePAM tablet 1 mg (KlonoPIN) Given 02/27/2021 1:39 PM CDT 1 mg 1 mg, oral, Once, On Thu02/27/21 at 1335, For 1 dose documented in this encounter Active and Recently Administered Medications Times are shown in CDT. Scheduled Medication Order 02/25/2021 02/26/2021 02/27/2021 clonazePAM tablet 1 mg (KlonoPIN) (COMPLETED) 1339 (Given - Provider: Pedro Preciado R.N.) 1 mg, oral, Once, On Thu02/27/21 at 1335, For 1 dose documented in this encounter Additional Health Concerns Assessment Noted Time PHQ-9 Depression Total Score: 3 01/23/2021 9:58 AM CDT documented as of this encounter Care Teams Ag Service Manager Relationship Specialty Start Date End Date Therese Lock P.A.Maximiliano., P.A. PCP - General Family Medicine 1 09/26/21 documented as of this encounter
--- OUTSIDE RECORDS SUMMARY | 2022-01-23 23:56 | XMS_ITS | Encounter Summary ---
:1985 Author Organization [facility] Address [address] [place] [address] Care Team Providers Name Role Phone Mer Hoang APRN C.N.P., D.N.P. Primary Care Provider Encounter Details Date Type Department Care Team Description 02/11/2021 Orders Only Division of [facility] Therese Lock, Internal Medicine, Arthur Malin, P.A. [facility], in [place], [place] [address] [place] [phone] Social History Tobacco Use Types Packs/Day Years [...] or relatives? How often do you attend latter-day or More than 4 times per year 05/31/2021 anabaptist services? Do you belong to any clubs or Yes 05/31/2021 organizations such as latter-day groups, unions, fraternal or athletic groups, or [...] or slept in a jail (including now)? Sex Assigned at Date Recorded Female 01/23/2021 7:15 AM CDT documented as of this encounter Plan of Treatment Not on filedocumented as of this encounter Visit Diagnoses Not on filedocumented in this encounter Additional Health Concerns Assessment Noted Time PHQ-9 Depression Total Score: 3 01/23/2021 9:58 AM CDT documented as of this encounter Care Teams Cook Vacuum Kettle Relationship Specialty Start Date End Date Mer Hoang APRN, C.N.P., D.N.P. PCP - General 03/27/19 02/26/[address] [place] [phone] documented as of this encounter
--- OUTSIDE RECORDS SUMMARY | 2022-01-23 23:56 | XMS_ITS | Encounter Summary ---
:1985 Author Organization [facility] Address [address] [place] [address] Care Team Providers Name Role Phone Therese Lock P.A.-C., P.A. Primary Care Provider Unavaila ble Reason for Visit Reason Comments Medication Question CeleXa Encounter Details Date Type Department Care Team Description 02/26/2021 Clinical Communication Department of Therese Lock Med ication Question Family MedicineNirmal P.A.-C., (CeleXa) [facility], in [address] [phone] Social History Tobacco Use Types Packs/Day Years [...] or relatives? How often do you attend hinduism or More than 4 times per year 05/31/2021 taoism services? Do you belong to any clubs or Yes 05/31/2021 organizations such as hinduism groups, unions, fraternal or athletic groups, or [...] slept in a care home (including now)? Sex Assigned at Date Recorded Female 01/23/2021 7:15 AM CDT documented as of this encounter Miscellaneous Notes Telephone Encounter - Domonique Pepe L.P.N. - 02/27/2021 2:25 PM CDT Information Discussed Patient was read provider recommendations to stop taking Celexa and try another med. Patient was notin agreement with this plan and felt she needed immediate attention. Patient was advised to go to the ED. PLAN Disposition/Recommendation: recommended to report to the nearest emergency department Information/Education: patient/caller able to teach back Caller agreeable to plan of care: yes The following references were used: nursing clinical judgement Telephone Encounter - Amanda Hall - 02/27/2021 11:57 AM CDT Patient called back in regards to this. She started tearing up on the phone. Denied talking to triage. Wants to talk to PCP team in regards to meds DANIELA so she can figure out what to do. Please call back Telephone Encounter - Therese Lock P.A.-Morris, P.A. - 02/27/2021 7:19 AM CDT Rather than hospitalization as she does not meet criteria (no thoughts of self harm or homicidal ideation) I would recommend discontinuation of Celexa and trying a different medication for her anxiety such as buspar which is not an SSRI or SNRI. Telephone Encounter - Marge Hester L.P.N. - 02/26/2021 3:50 PM CDT SUBJECTIVE CHIEF COMPLAINT / REASON FOR CALL Medication Question (CeleXa) Information Discussed Contacted patient. Patient stated that she started taking Celexa on 02/20/21 and feels that her depression and anxiety is getting worse. She states she is having troubles getting out of bed in the morning and not wanting to eat or drink anything, increased anxiety where she feels panicky and having racing scary thoughts. She states she does not have thoughts with plans of harming herself, but is having scary thoughts. Since starting the hydroxyzine she has been excessively sleepy and is sleeping 14 hours a night, then feels like she needs to nap multiple times a day, whereas when she took ativan it seemed to keep her calm with none of these side effects. Patient and her have been having d iscussions about admitting her into a hospital type setting to be monitored while adjusting her medications. She would like to know what type of settings (hospital/center) are available for something like this and typically how long does a stay like this last. I informed her that the duration of time would greatly depend on her bodies response to the medications and her progress. She stated that she would like a recommendation from Therese on at what point would we consider hospitalizing her to make sure she is safe during medication adjustments. She is open to discussion about it as she is concerned with everything getting worse, the new side effects, and the scary thoughts as she has 3 little children at home. Patient states she feels safe at the moment and has no plans on harming herself and has a good network around her if she needs to reach out for help in the meantime. I offered to send to POD as Therese Lock is out for the day, but she stated she would be fine to wait for [facility] response tomorrow. PLAN Disposition/Recommendation: self-care is appropriate at this time, patient encouraged to call back with questions and recommended continue engagement in self-management activities Information/Education: patient/caller able to teach back Caller agreeable to plan of care: yes The following references were used: nursing clinical judgement Telephone Encounter - Kateryna Benitez - 02/26/2021 3:09 PM CDT MEDICATION QUESTION: What number can I reach you at? [phone] Is it okay to leave a detailed message? yes What is the patient's request? Has questions about Celexa Medication name/dose: 10 mg Recent changes/new symptoms/side effects: Would not disclose What pharmacy are you using today? [facility] Additional comments (if any): Routing: - if no new symptoms or side effects, please route to [facility] pool of prescribing provider - if new symptoms or having side effects, please transfer to off-site triage ([phone]) documented in this encounter Plan of Treatment Not on filedocumented as of this encounter Visit Diagnoses Not on filedocumented in this encounter Additional Health Concerns Assessment Noted Time PHQ-9 Depression Total Score: 3 01/23/2021 9:58 AM CDT documented as of this encounter Care Teams Crossing Flagman Relationship Specialty Start Date End Date Therese Lock P.A.-C., P.A. PCP - General Family Medicine 1 09/26/21 documented as of this encounter
[2022-01-23 23:57] LABS: Slide Review Reflex No
--- OUTSIDE RECORDS SUMMARY | 2022-01-23 23:57 | XMS_ITS | Encounter Summary ---
:1985 Author Organization [facility] Address [address] [place] [address] Care Team Providers Name Role Phone Lissa Deshpande P.A.-C. Primary Care Provider [phone] Reason for Visit Reason Comments Wound Check previous galbladder surgery having issues with incision Appointment Request (Routine) - Closed Specialty Diagnoses / Procedures Referred By Contact Refer red To Contact General Surgery Referral ID Status Reason Start Date Expiration Date Visits Requ ested Visits Authorized [id number] Closed 03/16/2017 09/12/2017 1 1 Encounter Details Date Type Department Care Team Description 03/17/2017 Office Visit Department of Dwight Hernandez Suture Postoperative Initial (Primary Dx); General Surgery in [place] [facility] 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 - 03/17/2017 11:15 AM CST GENERAL SURGERY PROGRESS NOTE HISTORY OF PRESENT ILLNESS Ms. Franco is a 31 y.o. female who underwent a laparoscopic cholecystectomy on 11/24/2016. The patient did well in the postoperative course. She did react to the subcuticular Vicryl sutures at severalincision sites and these were removed postoperatively with her incisions healing by secondary intention. She returns to clinic today because she has noticed swelling in the medial right upper quadrant incision site. The suture had not previously been removed from this area. She has not noticed any increasing tenderness, redness, or tenderness. She has had no fever, chills, nausea, vomiting, or other systemic symptoms. Past Medical History, Past Surgical History, Family History, Social History, Medications and Allergies were reviewed in the electronic medical record under their respective tabs and updated where necessary. PHYSICAL EXAM Vitals: 03/17/17 1137 BP: 126/69 Patient Position: Sitting Pulse: 91 Temp: 36.3 ??C GENERAL: Well-developed, well-nourished. In no acute distress. Sitting comfortably in examination room. ABDOMEN: Abdomen is soft. Non-tender. Non-distended. Right upper quadrant medial incision with mild fluctuance. No erythema, induration, or tenderness. Remaining incisions are well healed. MUSCULOSKELETAL: Moves all extremities. No deformities or lesions. No peripheral edema. SKIN: Warm and dry. No rashes or jaundice. ASSESSMENT / PLAN Diagnosis Plan 1. Granuloma Suture Postoperative Initial 2. Follow Up Surgery Exam The patient's incision is consistent with a suture granuloma. I sharply excised the overlying skin of the scar and encountered purulent fluid. Chronic granulation tissue was sharply debrided and the wound was packed with packing strip. The incision was covered with a gauze dressing. The patient can remove this dressing tomorrow and then apply antibiotic ointment and a sterile dressing to the area on a daily basis until healed. She can call me with any questions or concerns, or otherwise return to clinic with any additional incision issues or failure to heal. Vicryl suture has been added to her allergy list. Dwight Hernandez M.D. MOBILE SERVICE WRITER documented in this encounter Plan of Treatment Not on filedocumented as of this encounter Visit Diagnoses Diagnosis Granuloma Suture Postoperative Initial - Primary Follow Up Surgery Exam documented in this encounter Care Teams Director Of Surgery Relationship Specialty Start Date End Date Lissa Deshpande P.A.-C. PCP - General 10/24/16 03/26/19 documented as of this encounter
--- OUTSIDE RECORDS SUMMARY | 2022-01-23 23:57 | XMS_ITS | Encounter Summary ---
:[address] [facility] Address [address] [place] [address] Care Team Providers Name Role Phone Juana Deshpande P.A.-C. Primary Care Provider Encounter Details Date Type Department Care Team Description 11/24/2016 Hospital Encounter HX [facility] Jorge Da Silva M.D. [address] [place] [phone] (Wo rk) Social History Tobacco Use Types Packs/Day Years Used Date Smoking Tobacco: Never Assessed Alcohol Habits Answer Date Recorded How often [...] or relatives? How often do you attend baptism or More than 4 times per year 05/31/2021 taoist services? Do you belong to any clubs or Yes 05/31/2021 organizations such as baptism groups, unions, fraternal or athletic groups, or [...] or slept in a intermediate (including now)? Sex Assigned at Date Recorded Female 01/23/2021 7:15 AM CDT documented as of this encounter Last Filed Vital Signs Vital Sign Reading Time Taken Comments Blood Pressure 117/77 11/24/2016 11:30 AM CDT Pulse 70 11/24/2016 11:30 AM CDT Temperature - - Respiratory Rate 16 11/24/2016 11:30 AM CDT Oxygen Saturation - - Inhaled Oxygen Concentration - - Weight - - Height 158 cm (5' 2.21) 11/24/2016 11:30 AM CDT Body Mass Index - - documented in this encounter Discharge Summaries Faith Beauchamp R.N. - 11/24/2016 11:40 AM CDT Discharge Summary Discharge Summary Entered On: 11/24/2016 14:48 CDT Performed On: 11/24/2016 11:40 CDT by FAITH BEAUCHAMP RN [place] Information Discharged to : Home with family care Current Home Treatments : None Home Equipment : None Professional Skilled Services : None Special Services and Community Resources : None Mode of Discharge : Wheelchair Discharge Transportation : Private vehicle Accompanied By : Parking Enforcer, Family Date/Time of Discharge : 11/24/2016 11:40 CDT FAITH BEAUCHAMP RN - 11/24/2016 14:47 CDT Source: [facility] POWERCHART Document Id: [id number] Faith Beauchamp R.N. - 11/24/2016 10:55 AM CDT Hospital Discharge Instructions [address] [id number] Patient Discharge Instructions Name: NOA FRANCO Current Date: 11/24/2016 10:55:30 : 1985 12:00 AM [facility]: [id number] [facility] Number: [id number] Patient Address: [address] [place] [id number] Patient Primary Care Provider: Name: JUANA COTA PA-C Discharge Diagnosis: [facility] in [place] would like to thank you for allowing us to assist you withyour healthcare needs. The following includes patient education materials and information regarding your injury/illness. Comment: NOA FRANCO has been given the following list of follow-up instructions, medication list,and patient education materials: Follow-up Instructions With: Address: When: MEHNAZ DA SILVA [address] [place] [id number] Business (1) 12/10/20163:15 PM Discharge Diet Diet Type: Resume previous diet Discharge Incision/Wound Care Wound Location: abdomen Keep Wound Dry: 24 Hours May Shower: In 24 Hours Dressing: Don't remove Discharge Instruction General Activity Limitations: Activity as tolerated Avoid Lifting: Greater than 20 pounds Duration of Lifting Limitations: 2 weeks Driving Limitations: Don't drive while taking pain medicine Special Instructions: Avoid submersion of wound for 2 weeks. Discharge Medication Instruction Medication Instruction: OTC Ibuprofen 600mg PO Q6h prn pain, OTC Senna 2 tabs PO BID prn constipation, OTC Tylenol 1000 mg PO Q8h prn pain Medications Medication/Strength How to Take Indications/Special Instructions/Comments/Notes for Patient Medication Changes/Routing multivitamin with minerals (Vitamin D with Minerals oral tablet) 1 Tablet(s), Oral, once a day multivitamin, ( Multivitamins with Vitamin B Complex, Vitamin C, Minerals and L-Methylfolate oral capsule) 1 cap, Oral, once a day oxyCODONE (oxyCODONE 5 mg oral tablet) See Instructions, as needed for pain 1-2 tab(s) PO q6hr New Routed to Printer Stop Taking the Following Medications: Medication list as of 11-24-16 10:55 Attention: If you have any medications at home that are not on this list, DO NOT take them until youcontact your provider for clarification. Give a copy of your medication list to your primary care provider. Update your medication list any time medications or doses are changed and carry your medication list at all times in case of emergency. Comment: Electronically Signed By: MEHNAZ DA SILVA MD Signed On:24-NOV-2016 07:53:47 Your Upcoming Appointments Date Time Location Provider 12/10/2016 15:15 [facility] Mary SHERMAN, Mehnaz Cummings Consider Using Patient Online Services Patient Online Services is a secure online and Mobile application that lets you: ?? View lab and test results ?? View portions of your medical record including clinical notes, immunizations and discharge summaries ?? Request an appointment or medication refill ?? Review your appointment schedule ?? Send secure messages to your care team Its easy to create an account if you dont have one. Go to [email or web address] and click on Create Your Account. Then, follow the directions to complete the online form. Youll be asked for your [facility] number which you can find at the top of this document. ICLAIR MELANIE LYNN , have received the attached patient education materials/instructions and have verbalized understanding: Patient Signature Date Time Care Provider Signature Date Time Source: [facility] POWERCHART Document Id: [id number] Faith Beauchamp R.N. - 11/24/2016 10:55 AM CDT Hospital Discharge Medication List [address] [id number] Discharge Medication List Name: NOA FRANCO Current Date: 11/24/2016 10:55:29 : 1985 12:00 AM [facility]: [id number] [facility] Number: [id number] Patient Address: [address] [place] [id number] Patient Primary Care Provider: Name: JUANA COTA PA-C Discharge Diagnosis: [facility] in [place] would like to thank you for allowing us to assist you withyour healthcare needs. The following includes patient education materials and information regarding your injury/illness. Medications Medication/Strength How to Take Indications/Special Instructions/Comments/Notes for Patient Medication Changes/Routing multivitamin with minerals (Vitamin D with Minerals oral tablet) 1 Tablet(s), Oral, once a day multivitamin, ( Multivitamins with Vitamin B Complex, Vitamin C, Minerals and L-Methylfolate oral capsule) 1 cap, Oral, once a day oxyCODONE (oxyCODONE 5 mg oral tablet) See Instructions, as needed for pain 1-2 tab(s) PO q6hr New Routed to Printer Stop Taking the Following Medications: Medication list as of 11-24-16 10:55 Attention: If you have any medications at home that are not on this list, DO NOT take them until youcontact your provider for clarification. Give a copy of your medication list to your primary care provider. Update your medication list any time medications or doses are changed and carry your medication list at all times in case of emergency. Comment: Electronically Signed By: MEHNAZ DA SILVA MD Signed On:24-NOV-2016 07:53:47 Source: [facility] POWERCHART Document Id: [id number] documented in this encounter Medications at Time of Discharge Medication Sig Dispensed Refills Start Date End Date CHOLECALCIFEROL, VITAMIN Take 1 tablet by 0 11/05 D3, (VITAMIN D3 ORAL) mouth daily. PNV NO.95/FERROUS FUM/FOLIC Take 1 capsule by 0 0 11/05/2016 AC ( MULTIVITAMINS mouth daily. ORAL) cholecalciferol Take 1,000 Units 0 06/21/2015 (for_VITAMIN D3) 1,000 Unit by mouth. tablet documented as of this encounter Procedure Notes Irina Woods R.N. - 11/24/2016 7:13 AM CDT Preprocedure Checklist Document Has Been Updated Preprocedure Checklist Entered On: 11/24/2016 7:14 CDT Performed On: 11/24/2016 7:13 CDT by IRINA WOODS RN Checklist Status : Confirmed negative IRINA WOODS RN - 11/24/2016 7:59 CDT Last Fluid Intake : 11/23/2016 21:00 CDT Last Food Intake : 11/23/2016 21:00 CDT IRINA WOODS RN - 11/24/2016 7:13 CDT Surgery Prep Grid Contacts/Glasses Removed : NA Dentures Removed : NA Hairpins/Hairpiecies Removed : NA Hearing Aid Removed : NA Home Prep Complete : NA Jewelry/Piercing Removed : NA Makeup/Nail Kenyan Removed : NA Oral Hygiene : NA Preop Scrub AM of Surgery : Yes Preop Scrub Night Prior to Surgery : Yes Prosthesis Removed : NA Tampon Removed : NA Verified - No hair products used : NA Voided public relations officer to procedure : Yes Wearing Patient Gown : Yes IRINA WOODS RN - 11/24/2016 7:13 CDT Patient Rights Grid Blood Consent Signed : LALITHA Surgical/Procedure Consent Signed : Yes IRINA WOODS RN - 11/24/2016 7:13 CDT Family Location : [place] spouse IRINA WOODS RN - 11/24/2016 7:13 CDT Checklist II Patient Safety Grid Allergy Band on and Verified : Yes Anesthesia Consult : Yes Band on for Limb Alert : NA Blood Band on and Verified : NA Current ECG in Medical Record : NA Current H&P in Medical Record : Yes Implants Verified : NA Medication Reconciliation on Chart : Yes Pacemaker/AICD Verified : NA ID Band on and Verified : Yes Preop Medications Sent With Patient : NA Relevant Images in Medical Record : NA Review of Labs : NA Procedure/Site Verified by Patient/Family : Yes Procedure/Site Verified by RN : Yes Procedure/Site Verified by Physician : Yes Type & Screen/Type & Cross Completed : IRINA DUGGAN RN - 11/24/2016 7:21 CDT RN Who Verified Site : IRINA WOODS RN Physician Who Verified Site : MEHNAZ DA SILVA MD, KIMBERLY J RN - 11/24/2016 7:21 CDT STARR Screening Known Obstructive Sleep Apnea : No - NOT diagnosed with STARR STARR Score : Total Sleep Apnea Clinical Score: 0 (11/10/16) STARR Results : High BP or Take Medications for High BP: No (11/10/16) Known Obstructive Sleep Apnea: No - NOT diagnosed with STARR (11/10/16) Neck Circumference - STARR: 32/33 (11/10/16) Frequency of Gasping, Choking, Snorting: Never (11/10/16) Frequency of Snoring: Never (11/10/16) Total Number of Historical Features: 0 (11/10/16) IRINA WOODS RN - 11/24/2016 7:21 CDT STARR Assessment Do you have high blood pressure or have you been told to take medication for high blood pressure? : No Frequency of Snoring : Never Frequency of Gasping, Choking, Snorting : Never Total Number of Historical Features : 0 Neck Circumference (cm) : 32/33 Total Sleep Apnea Clinical Score Calc : 0 IRINA WOODS RN - 11/24/2016 7:21 CDT Valuables/Belongings Valuables/Belongings Grid Valuables at Bedside Clothes, Patient Valuables : Shoes, Undergarments, Other: sundress Electronic Devices : Cell phone Monetary Items : Wallet IRINA WOODS RN - 11/24/2016 7:21 CDT Room Orientation/Facility Policy Reviewed : Yes Home Medication Disposition : None brought in with patient IRINA WOODS RN - 11/24/2016 7:21 CDT Education Preprocedure Education Grid Procedure Type : Laparoscopic Cholecystectomy Education Topics : Anesthesia/Sedation, Patient rights and responsibilities, Plan of care, Tubes/Drains/IV's, Turn/Cough/Deep breathing Individuals Taught : Patient, Spouse Barriers to Learning : None evident Teaching Method : Explanation, Printed materials Teaching Evaluation : Verbalizes understanding IRINA WOODS RN - 11/24/2016 7:21 CDT Preop Holding Mode of Arrival : Ambulatory Preoperative Orders Complete : Yes IRINA WOODS RN - 11/24/2016 7:21 CDT Advance Directive Advanced Directives : No Advance Directive Additional Information : No IRINA WOODS RN - 11/24/2016 7:21 CDT Vital Signs Temperature Core : 36.2 DegC(Converted to: 97.2 DegF) (LOW) Peripheral Pulse Rate : 86 /min Respiratory Rate : 18 /min Systolic Blood Pressure : 119 mmHg Diastolic Blood Pressure : 68 mmHg NIBP Mean : 85 mmHg SpO2 : 97 % Oxygen Therapy : Room air Height : 158 cm(Converted to: 5 ft 2 inch(es)) IRINA WOODS RN - 11/24/2016 7:21 CDT Allergy (As Of: 11/24/2016 07:29:57 CDT) Allergies (Active) Monistat 7 Estimated Onset Date: <not entered> 11/05/2016 ; Created By: CLEMENT ALBERT RN; Reaction Status: Active ; Category: Drug ; Substance: Monistat 7 ; Type: Allergy ; Updated By: CLEMENT ALBERT RN; Source: Patient ; Reviewed Date: 11/24/2016 7:29 CDT Source: [facility] Videoflow Document Id: [id number]!3 documented in this encounter Nursing Notes Irina Woods R.N. - 11/24/2016 7:29 AM CDT Day Surgery Admission History/Asmt Adult Document Has Been Updated Day Surgery Admission History/Asmt Adult Entered On: 11/24/2016 7:37 CDT Performed On: 11/24/2016 7:29 CDT by IRINA WOODS RN General Info Preferred Name : Noa Admitted From : Non-Health Care Facility Point of Origin Mode of Arrival : Ambulatory Present in Room During Exam/Procedure : Spouse Preferred Communication Mode : Verbal Information Given By : Patient Languages : Lebanese Is Patient Female and 13-50 no hysterectomy : Yes Status : Confirmed negative Are you ? : No IRINA WOODS RN - 11/24/2016 7:29 CDT Allergy (As Of: 11/24/2016 07:37:19 CDT) Allergies (Active) Monistat 7 Estimated Onset Date: <not entered> 11/05/2016 ; Created By: CLEMENT ALBERT RN; Reaction Status: Active ; Category: Drug ; Substance: Monistat 7 ; Type: Allergy ; Updated By: CLEMENT ALBERT RN; Source: Patient ; Reviewed Date: 11/24/2016 7:29 CDT Anesth/Transfusion Anesthesia/Transfusions : Prior anesthesia Transfusion Acceptable in Emergency : Yes Church/Other Objections to Blood Transfusions : No IRINA WOODS RN - 11/24/2016 7:29 CDT ID Screen Drug Resistant Organism : No Travel Within Last 21 Days : No Contact with someone with Ebola : No IRINA WOODS RN - 11/24/2016 7:29 CDT Nutrition Have you recently lost weight without trying? : No Decreased Appetite Nutrition : No Tube Feedings or Parenteral Nutrition : No MST Score : 0 Home Diet : Regular Appetite : Excellent Eating Difficulties : None Feeding Ability : Complete independence IRINA WOODS RN - 11/24/2016 7:29 CDT Home Environment Current Daily Living Assistance : None Living Situation : Home with family care History of Falls : More than 6 months Home Equipment : None Sensory Deficits : None Mobility Assistance Prior to Admission : Independent Current Home Treatments : None Professional Skilled Services : None Special Services and Community Resources : None IIRNA WOODS RN - 11/24/2016 7:29 CDT Dependent Habits Exposure to Tobacco Smoke : Other: never Smoking Status : Never smoker Tobacco 2A : No Tobacco Use/Currently Using : No Tobacco Use/Last 30 Days : No Tobacco Use/Last 12 months : No Alcohol Use : Yes IRINA WOODS RN - 11/24/2016 7:29 CDT Caffeine Use Grid Caffeine Use : Current Type : Coffee Frequency : Daily IRINA WOODS RN - 11/24/2016 7:29 CDT Recreational Drug Use Grid Drug Use : None IRINA WOODS RN - 11/24/2016 7:29 CDT AUDIT Tool How Often Do You Have A Drink : 2 to 4 times a month How Many Drinks in a Day When Drinking : 1 or 2 Six or More Drinks On One Occassion : Never Audit Phase 1 Score : 2 IRINA WOODS RN - 11/24/2016 7:29 CDT Psychosocial Adult Domestic Abuse Concerns : None Behavioral Health Screen/Safety Assmt : No Church Preference : No qualifying data available. IRINA WOODS RN - 11/24/2016 7:29 CDT Advance Directive Advanced Directives : No Advance Directive Additional Information : No IRINA WOODS RN - 11/24/2016 7:29 CDT Educ Needs Patient/Family Education Needs : Activity limitations/expectations, Allergies, Plan of care, Preoperative instructions, Safety, fall, Surgery IRINA WOODS RN - 11/24/2016 7:29 CDT Learning Style Preference Adult Grid Patient : Printed materials, Verbal explanation Family : Printed materials, Verbal explanation IRINA WOODS RN - 11/24/2016 7:29 CDT Education Preprocedure Education Grid Procedure Type : laparoscopic cholecystectomy Education Topics : Anesthesia/Sedation, Patient rights and responsibilities, Plan of care, Tubes/Drains/IV's Individuals Taught : Patient, Spouse Barriers to Learning : None evident Teaching Method : Explanation, Printed materials Teaching Evaluation : Verbalizes understanding IRINA WOODS RN - 11/24/2016 7:29 CDT Outpatient Assessment Procedural Respiratory : Respirations unlabored, Respiratory pattern regular, Breath sounds clear all lobes, No cough Procedural Cardiovascular : Heart rhythm regular, Skin color normal for ethnicity, Skin dry and warm Procedural Neurological : Alert, Oriented x 3, Gait steady, No swallowing difficulty/aspiration risk Procedural Integumentary : Skin integrity intact IRINA WOODS RN - 11/24/2016 7:29 CDT Psycho/Emotional Affect/Behavior : Calm, Cooperative, Appropriate Pain Symptoms : No IRINA WOODS RN - 11/24/2016 7:29 CDT Coping Grid Identifies effective strategies : Yes Uses effective strategies : Yes Reports increase in psychological comfort : Yes Indicates sense of control : Yes Stressors perceived within control : Yes Stable mood with appropriate affect : Yes Behaviors indicate use of coping mechanism : Yes Family supportive and involved in care : Yes Values/Beliefs incorporated appropriately : Yes IRINA WOODS RN - 11/24/2016 7:29 CDT Safety Grid Vision, Hearing, Mobility Adequate to Meet Safety Needs : Yes IRINA WOODS RN - 11/24/2016 7:29 CDT Peripheral IV Peripheral IV Assess/Intervention Grid Peripheral IV #1 IV Activity : Start Date of Insertion : 11/24/2016 CDT IV Site : Hand Laterality : Left Catheter Size : 18 Catheter Type : Over the needle IRINA WOODS RN - 11/24/2016 7:29 CDT Silver Sensory Perception Silver : No impairment Moisture Silver : Rarely moist Activity Silver : Walks frequently Mobility Silver : No limitations Nutrition Silver : Excellent Friction and Shear Silver : No apparent problem Silver Score : 23 IRINA WOODS RN - 11/24/2016 7:29 CDT Falls Assessment Fall Injury Risk History of Falls : No Fall Injury Risk Factors : None of the below Risk Factors Patient has increased Fall Injury Risk : Yes IRINA WOODS RN - 11/24/2016 7:29 CDT Hendrich II Fall Risk Confusion/Disorientation Hendrich : No Depression Fall Risk Hendrich : No Altered Elimination Fall Risk Hendrich : No Dizziness/Vertigo Fall Risk Hendrich : No Gender, Male Fall Risk Hendrich : No Prescribed Antiepileptics Hendrich : No Prescribed Benzodiazepines Hendrich : No Rising From Chair Fall Risk Hendrich : Able to rise in a single movement, no loss of balance with steps Fall Risk Score Hendrich II : 0 IRINA WOODS RN - 11/24/2016 7:29 CDT Source: [employer] Document Id: [id number] documented in this encounter OR Notes Op Note - Zackery Robison APRN, PROFESSOR OF BIOCHEMISTRY - 11/24/2016 11:20 AM CDT anes, Post-anesthesia Assessment POSTANESTHESIA ASSESMENT T, P, RR, and SpO2 VITAL SIGNS Temperature Core: 36.1 DegC Low Peripheral Pulse Rate: 71 /min Respiratory Rate: 16 /min SpO2: 98 % BP BLOOD PRESSURE Systolic Blood Pressure: 117 mmHg Diastolic Blood Pressure: 79 mmHg Cardiovascular Status [_x] Hemodynamics (HR and BP) acceptable [_] Hemodynamics (HR and BP) unacceptable requiring ongoing treatment Respiratory Support [_x] Patent airway with unassisted ventilation [_] Patent airway with the need for PAP therapy (CPAP, BPAP) [_] Mechanically ventilated Oxygen Requirements [_x] Room air [_] Nasal cannula [_] Closed face mask [_] Assisted ventilation (noninvasive or mechanical) with supplemental oxygen [_] Other: _ Level of Consciousness [_x] Awake [_] Sedated, but awakens easily [_] Sedated, difficult to awake, patient unable to participate in evaluation [_] Unconscious, patient unable to participate in evaluation Temperature [_x] Normothermic [_] Hypo or hyperthermic requiring ongoing treatment Pain [_x] Adequately controlled and/or at baseline [_] Requiring further management [_] Unable to be assessed Nausea/Vomiting [x_] No [_] Yes, treated as necessary Intravascular Volume Status [_x] Euvolemic [_] Hypo or hypervolemic requiring ongoing treatment Anesthesia Observations [x_] None apparent [_] Refractory nausea and vomiting [_] Dental/Oral injury [_] Eye injury [_] New or changed neurologic deficit [_] Other (Document in comments) Disposition [_] General care unit [_] Monitored care unit (ICU, PCU, ED, etc.), expectation for recovery time deferred to receiving unit [_x] Dismissal [_] Other: _ Comments _ Electronically Signed By: ZACKERY ROBISON APRN, CRNA On: 11/24/2016 01:04 PM Source: [employer] Document Id: [id number] Op Note - Mehnaz Da Silva M.D. - 11/24/2016 12:00 AM CDT [id number] PREOPERATIVE DIAGNOSIS Symptomatic cholelithiasis. POSTOPERATIVE DIAGNOSIS Symptomatic cholelithiasis. PROCEDURE PERFORMED Laparoscopic cholecystectomy. SURGEON Mehnaz Da Silva MD. PARTY PLAN SALES DIRECTOR Jany Curry RN ANESTHESIA General endotracheal anesthesia. INDICATIONS FOR PROCEDURE Noa is a 31-year-old female, who presented to Surgery Clinic with intermittent right upper quadrant abdominal pain. Her history, physical examination, laboratory and imaging findings were all consistent with symptomatic cholelithiasis. It was recommended she undergo a laparoscopic cholecystectomy,possible open, in the operating room. The procedure details, expected recovery and potential complications were discussed with her. She was agreeable to proceed forward with the procedure and signed the informed consent form. She was scheduled on an elective outpatient basis. Please see my clinic notefor details. DESCRIPTION OF PROCEDURE Patient was seen in preinduction and identified using 2 independent identifiers. Procedure details, expected recovery and potential complications were discussed with her. Informed consent was confirmed. Her abdomen was marked with the surgeon's initials. She received preoperative antibiotics. Was brought to the operating room and placed on the operating table in the supine position. She underwent general anesthesia induction and endotracheal intubation. She was then prepped and draped in usual sterile fashion and a surgical time out was performed. PREPROCEDURE PAUSE: The patients identity was verified by confirmation of name and date. The patient confirmed the correct operative site. A preprocedure pause verified the above. A small skin incision was made in the patient's left upper quadrant near the costal margin after injection of local anesthetic. The abdominal wall was dissected under scope visualization using a 5 mm optical port. Once the peritoneal cavity was entered the abdomen was insufflated with carbon dioxide. P ort entry site was inspected for intra-abdominal injury and none was seen. Three additional ports were placed in the abdomen, a 12 mm port at the umbilicus and two 5 mm ports in the right upper quadrant. The patient was placed in reverse Trendelenburg position and airplaned to the left. The gallbladder was identified and was grasped at its dome and retracted superiorly and laterally. There were omental adhesions to the gallbladder which were taken down with hook electrocautery. The duodenum was also adhesed to the infundibulum although these were thin wispy adhesions which were [place] with a combination of blunt and electrocautery dissection. No injury to the duodenum was identified. This exposed the infundibulum of the gallbladder. The cystic duct and cystic artery were then dissected away from surrounding tissues using hook electrocautery. A critical view of safety was obtained showing the cystic duct and cystic artery going directly into the gallbladder with no intervening structures all the way back to the liver. The cystic duct and cystic artery were then ligated with Endoclips 2 proximal and 1 distal on each structure. The cystic duct and cystic artery were then divided in between the clips using the laparoscopic scissors. The gallbladder was dissected off the liver bed using hook electrocautery. Once dissected free, it was placed in an EndoCatch bag and removed from the abdomen through the 12 mm port site. The gallbladder was then passed off the field as a specimen and sent to pathology for analysis. The liver bed was inspected for hemostasis which was present. The cystic duct and cystic artery stumps were inspected and the clips found to be in good position with no bleeding or bile leakage. The 12mm port was removed and the fascia closed using a Fredy-Tavia needle and 0 Vicryl suture. The remaining ports were removed under scope visualization with no port site bleeding being identified. Theabdomen was desufflated. The skin incisions were closed using subcuticular 4-0 Vicryl suture. Dermabond glue was applied to the incisions. Patient was awoken from anesthesia, extubated, and brought to the postanesthesia care unit in good condition. All counts were correct x2. Patient tolerated the procedure well. FINDINGS Gallstones in gallbladder with a few omental adhesions. Critical view of safety obtained prior to ligation and division of cystic duct and cystic artery. ESTIMATED BLOOD LOSS 10 mL. SPECIMENS Gallbladder. DRAINS None. COMPLICATIONS None. Mehnaz Da Silva M.D./nancy Electronically Signed By: MEHNAZ DA SILVA MD On: 11/24/2016 10:53 AM Source: [facility] [id number] Document Id: [id number] documented in this encounter Miscellaneous Notes Miscellaneous - Faith Beauchamp, R.N. - 11/24/2016 11:40 AM CDT Valuables/Belongings Valuables/Belongings Entered On: 11/24/2016 14:48 CDT Performed On: 11/24/2016 11:40 CDT by FAITH BEAUCHAMP RN Valuables/Belongings Valuables/Belongings Grid Valuables at Bedside Clothes, Patient Valuables : Shoes, Undergarments, Other: sundress Electronic Devices : Cell phone Monetary Items : Wallet FAITH BEAUCHAMP RN - 11/24/2016 14:48 CDT Room Orientation/Facility Policy Reviewed : Yes Belongings Sent Home With : all home with patient Home Medication Disposition : None brought in with patient FAITH BEAUCHAMP RN - 11/24/2016 14:48 CDT Source: [facility] POWERCHART Document Id: [id number] CDT!10 Miscellaneous - Raymond, Historical Provider Ser - 11/24/2016 11:40 AM CDT Coding Summary-Paper Based CODING DATE: 12/03/2016 FINAL [place] [facility] STATUS: * Discharged to Home or Self Care PAYOR: Commercial Insurance APC DESCRIPTION 5361 Level 1 Laparoscopy and Related Services ADMIT DX: REASON FOR VISIT DX: FINAL DX: PRINCIPAL: 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 However, the narrative phrase printed from the coding software may appear abbreviated, or result in slightly different terminology. Coded By: BRIANDA LAMB COLLAR SETTER OVERLOCK Date Saved: 12/03/2016 02:45 pm [facility] Document Id: [id number] Miscellaneous - Fiath Beauchamp RClarisaN. - 11/24/2016 11:30 AM CDT Adult Postprocedure Assessment Adult Postprocedure Assessment Entered On: 11/24/2016 11:31 CDT Performed On: 11/24/2016 11:30 CDT by FAITH BEAUCHAMP RN Vital Signs Temperature Core : 36.2 DegC(Converted to: 97.2 DegF) (LOW) Peripheral Pulse Rate : 70 /min Respiratory Rate : 16 /min Systolic Blood Pressure : 117 mmHg Diastolic Blood Pressure : 77 mmHg NIBP Mean : 90 mmHg SpO2 : 97 % Oxygen Therapy : Room air Height : 158 cm(Converted to: 5 ft 2 inch(es)) FAITH BEAUCHAMP RN - 11/24/2016 11:24 CDT General Level of Consciousness : Alert Orientation : Oriented x 3 Skin Color : Normal for ethnicity Skin Description : Dry Skin Temperature : Warm Pain Symptoms : Yes FAITH BEAUCHAMP RN - 11/24/2016 11:24 CDT Pain Scale Pain Scale Verbal 0-10 : Open FAITH BEAUCHAMP 11/24/2016 11:24 CDT Pain Pain Assessment Grid Pain 1 Pain 2 Location : Abdomen Lower back Laterality : Bilateral Right Intensity : 5 6 FAITH BEAUCHAMP 11/24/2016 11:24 CDT FAITH BEAUCHAMP 11/24/2016 11:24 CDT Cardiovascular Heart Rhythm : Regular Nail Bed Color : [place] Capillary Refill : Less than 2 seconds FAITH BEAUCHAMP 11/24/2016 11:24 CDT Respiratory Respirations : Unlabored Distress : None Respiratory Pattern : Regular All Lobes Breath Sounds : Clear Cough and Deep Breathe : Done FAITH BEAUCHAMP 11/24/2016 11:24 CDT GI/ Nausea Symptoms : No FAITH BEAUCHAMP 11/24/2016 11:24 CDT Integumentary Skin Color : Normal for ethnicity Skin Description : Dry Skin Temperature : Warm FAITH BEAUCHAMP 11/24/2016 11:24 CDT Incision/Wound Incision/Wound Care Grid Activity : Assessed Wound Type : Other: laproscopic Location : Abdomen Laterality : Left, Right, Central Description : Dry FAITH BEAUCHAMP 11/24/2016 11:24 CDT Peripheral IV Peripheral IV Assess/Intervention Grid Peripheral IV #1 IV Activity : Discontinue Removal : Catheter intact, Hemostasis within expected timeframe Date of Insertion : 11/24/2016 CDT Discontinued Date : 11/24/2016 CDT IV Site : Hand Laterality : Left Catheter Size : 18 Catheter Type : Over the needle Site Condition : No complications Drainage Description : None Infiltration Score : 0 Phlebitis Score : 0 Flow/ Patency : No complications FAITH BEAUCHAMP 11/24/2016 11:24 CDT I&O Oral Intake : 350 mL FAITH BEAUCHAMP 11/24/2016 11:24 CDT Nutrition Morning Snack : 100 % FAITH BEAUCHAMP 11/24/2016 11:24 CDT Neurologic Swallowing Difficulty/Aspiration Risk : None Extremity Movement : Equal Facial Symmetry : Symmetric Characteristics of Speech : FAITH Gonzales 11/24/2016 11:24 CDT Activity Patient Position : Elevate head of bed 45 degrees Activity Status ADL : Up ad janet Activity Assistance : Independent FAITH BEAUCHAMP 11/24/2016 11:24 CDT PARSAP Activity Status : Moves 4 extremities voluntarily or on command Dressing : Dry and clean Respiratory Component : Able to deep breathe and cough freely Pain : Pain mild, handled by oral medication (Comment: still feels pressure in back and when moving in abdomen [NITO FAITH A RN - 11/24/2016 11:24 CDT] ) Circulation Component : BP 20% of preanesthetic level Ambulation : Able to stand up and walk straight Consciousness : Fully awake Fasting and Feeding : Able to drink fluids Oxygen Saturation - Sedation : Can maintain > 92% on room air Urine Output, PARSAP : Has voided PARSAP Score : 19 FAITH BEAUCHAMP RN - 11/24/2016 11:24 CDT Thomas Thomas Agitation Sedation Scale (RASS) : Alert and calm RASS Score : 0 FAITH BEAUCHAMP RN - 11/24/2016 11:24 CDT Silver Sensory Perception Silver : No impairment Moisture Silver : Rarely moist Activity Silver : Walks frequently Mobility Silver : No limitations Nutrition Silver : Excellent Friction and Shear Silver : No apparent problem Silver Score : 23 FAITH BEAUCHAMP RN - 11/24/2016 11:24 CDT Falls Assessment Fall Injury Risk History of Falls : No Patient at Risk for Falls : No Fall Injury Risk Factors : None of the below Risk Factors Patient has increased Fall Injury Risk : No FAITH BEAUCHAMP RN - 11/24/2016 11:24 CDT Hendrich II Fall Risk Confusion/Disorientation Hendrich : No Depression Fall Risk Hendrich : No Altered Elimination Fall Risk Hendrich : No Dizziness/Vertigo Fall Risk Hendrich : No Gender, Male Fall Risk Hendrich : No Prescribed Antiepileptics Hendrich : No Prescribed Benzodiazepines Hendrich : Yes Rising From Chair Fall Risk Hendrich : Able to rise in a single movement, no loss of balance with steps Fall Risk Score Hendrich II : 1 FAITH BEAUCHAMP RN - 11/24/2016 11:24 CDT Safe Patient Handling Safe Pt Handling Independent : Yes - No equipment needed Safe Pt Handling Equipment Rec : No Equipment Needed FAITH BEAUCHAMP RN - 11/24/2016 11:24 CDT Education General Patient Education [employer] Topics : Activity limitations/expectations, Discharge instructions/Medication list, Medication dosage, route, scheduling, Nutrition/Diet, Patient rights and responsibilities, Physical limitations, Postoperative instructions, Printed materials, Safety, fall, Use of pain scale(s), When to call health care provider, Wound care Individuals Taught : Patient, Spouse Barriers to Learning : None evident Teaching Method : Explanation, Printed materials Teaching Evaluation : Verbalizes understanding FAITH BEAUCHAMP RN - 11/24/2016 11:24 CDT Source: [facility] [employer] Document Id: [id number] CDT!132 Miscellaneous - Faith Beauchamp RGustabo - 11/24/2016 11:15 AM CDT Adult Postprocedure Assessment Adult Postprocedure Assessment Entered On: 11/24/2016 11:34 CDT Performed On: 11/24/2016 11:15 CDT by FAITH BEAUCHAMP RN Vital Signs Temperature Core : 36.2 DegC(Converted to: 97.2 DegF) (LOW) Peripheral Pulse Rate : 70 /min Respiratory Rate : 16 /min Systolic Blood Pressure : 117 mmHg Diastolic Blood Pressure : 81 mmHg NIBP Mean : 93 mmHg SpO2 : 98 % Height : 158 cm(Converted to: 5 ft 2 inch(es)) FAITH BEAUCHAMP RN - 11/24/2016 11:32 CDT General Level of Consciousness : Alert Orientation : Oriented x 3 Skin Color : Normal for ethnicity Skin Description : Dry Skin Temperature : Warm Pain Symptoms : Yes FAITH BEAUCHAMP RN - 11/24/2016 11:35 CDT Pain Scale Pain Scale Verbal 0-10 : Open FAITH BEAUCHAMP RN - 11/24/2016 11:35 CDT Pain Pain Assessment Grid Pain 1 Pain 2 Location : Abdomen Lower back Laterality : Bilateral Bilateral Intensity : 5 6 FAITH BEAUCHAMP RN - 11/24/2016 11:35 CDT FAITH BEAUCHAMP RN - 11/24/2016 11:35 CDT Cardiovascular Heart Rhythm : Regular Nail Bed Color : [place] Capillary Refill : Less than 2 seconds FAITH BEAUCHAMP RN - 11/24/2016 11:35 CDT Respiratory Respirations : Unlabored Respiratory Pattern : Regular FAITH BEAUCHAMP RN - 11/24/2016 11:35 CDT GI/ Nausea Symptoms : No FAITH BEAUCHAMP RN - 11/24/2016 11:35 CDT Incision/Wound Incision/Wound Care Grid Activity : Assessed Wound Type : Other: laproscopic Location : Abdomen Laterality : Left, Right, Central Description : Dry FAITH BEAUCHAMP 11/24/2016 11:35 CDT Peripheral IV Peripheral IV Assess/Intervention Grid Peripheral IV #1 Removal : Catheter intact, Hemostasis within expected timeframe Date of Insertion : 11/24/2016 CDT Discontinued Date : 11/24/2016 CDT IV Site : Hand Laterality : Left Catheter Size : 18 Catheter Type : Over the needle FAITH BEAUCHAMP 11/24/2016 11:35 CDT I&O Other Intake : 400 mL (Comment: I.V. fluids [FAITH BEAUCHAMP 11/24/2016 11:35 CDT] ) FAITH BEAUCHAMP 11/24/2016 11:35 CDT Nutrition Morning Snack : 100 % FAITH BEAUCHAMP 11/24/2016 11:35 CDT PARSAP Activity Status : Moves 4 extremities voluntarily or on command Dressing : Dry and clean Respiratory Component : Able to deep breathe and cough freely Pain : Pain mild, handled by oral medication Circulation Component : BP 20% of preanesthetic level Ambulation : Able to stand up and walk straight Consciousness : Fully awake Fasting and Feeding : Able to drink fluids Oxygen Saturation - Sedation : Can maintain > 92% on room air Urine Output, PARSAP : Has voided PARSAP Score : 19 FAITH BEAUCHAMP 11/24/2016 11:35 CDT Thomas Thomas Agitation Sedation Scale (RASS) : Alert and calm RASS Score : 0 FAITH BEAUCHAMP 11/24/2016 11:35 CDT Silver Sensory Perception Silver : No impairment Moisture Silver : Rarely moist Activity Silver : Walks frequently Mobility Silver : No limitations Nutrition Silver : Excellent Friction and Shear Silver : No apparent problem Silver Score : 23 FAITH BEAUCHAMP 11/24/2016 11:35 CDT Falls Assessment Fall Injury Risk History of Falls : No Patient at Risk for Falls : No Fall Injury Risk Factors : None of the below Risk Factors Patient has increased Fall Injury Risk : No FAITH BEAUCHAMP 11/24/2016 11:35 CDT Hendrich II Fall Risk Confusion/Disorientation Hendrich : No Depression Fall Risk Hendrich : No Altered Elimination Fall Risk Hendrich : No Dizziness/Vertigo Fall Risk Hendrich : No Gender, Male Fall Risk Hendrich : No Prescribed Antiepileptics Hendrich : No Prescribed Benzodiazepines Hendrich : Yes Rising From Chair Fall Risk Hendrich : Able to rise in a single movement, no loss of balance with steps Fall Risk Score Melizarich II : 1 FAITH BEAUCHAMP RN - 11/24/2016 11:35 CDT Safe Patient Handling Safe Pt Handling Independent : Yes - No equipment needed Safe Pt Handling Equipment Rec : No Equipment Needed FAITH BEAUCHAMP RN - 11/24/2016 11:35 CDT Source: [employer] Document Id: [id number] CDT!101 Miscellaneous - Faith Beauchamp R.N. - 11/24/2016 10:45 AM CDT Adult Postprocedure Assessment Adult Postprocedure Assessment Entered On: 11/24/2016 12:04 CDT Performed On: 11/24/2016 10:45 CDT by FAITH BEAUCHAMP RN Vital Signs Temperature Core : 36.1 DegC(Converted to: 97.0 DegF) (LOW) Peripheral Pulse Rate : 71 /min Respiratory Rate : 16 /min Systolic Blood Pressure : 117 mmHg Diastolic Blood Pressure : 79 mmHg NIBP Mean : 92 mmHg BP Location : Left upper extremity SpO2 : 98 % Oxygen Saturation Monitoring Frequency : Continuous Oxygen Therapy : Room air Height : 158 cm(Converted to: 5 ft 2 inch(es)) FAITH BEAUCHAMP RN - 11/24/2016 12:02 CDT General Level of Consciousness : Alert Orientation : Oriented x 3 Skin Color : Normal for ethnicity Skin Description : Dry Skin Temperature : Warm Pain Symptoms : Yes FAITH BEAUCHAMP RN - 11/24/2016 12:02 CDT Pain Scale Pain Scale Verbal 0-10 : Open FAITH BEAUCHAMP RN - 11/24/2016 12:04 CDT Pain Pain Assessment Grid Pain 1 Pain 2 Location : Abdomen Lower back Laterality : Bilateral Bilateral Intensity : 6 6 FAITH BEAUCHAMP RN - 11/24/2016 12:04 CDT FAITH BEAUCHAMP RN - 11/24/2016 12:04 CDT Cardiovascular Heart Rhythm : Regular Nail Bed Color : [place] Capillary Refill : Less than 2 seconds FAITH BEAUCHAMP RN 11/24/2016 12:04 CDT Respiratory Respiratory Patient Stated Symptoms : None Respirations : Unlabored Distress : None Respiratory Pattern : Regular FAITH BEAUCHAMP 11/24/2016 12:04 CDT GI/ Nausea Symptoms : No FAITH BEAUCHAMP 11/24/2016 12:04 CDT Integumentary Skin Color : Normal for ethnicity Skin Description : Dry Skin Temperature : Warm FAITH BEAUCHAMP 11/24/2016 12:04 CDT Incision/Wound Incision/Wound Care Grid Activity : Assessed Wound Type : Other: laproscopic Location : Abdomen Laterality : Left, Right, Central Description : Dry FAITH BEAUCHAMP 11/24/2016 12:04 CDT Peripheral IV Peripheral IV Assess/Intervention Grid Peripheral IV #1 IV Activity : Assessment Date of Insertion : 11/24/2016 CDT Discontinued Date : 11/24/2016 CDT IV Site : Hand Laterality : Left Catheter Size : 18 Catheter Type : Over the needle Infiltration Score : 0 Phlebitis Score : 0 Flow/ Patency : No complications FAITH BEAUCHAMP 11/24/2016 12:04 CDT Neurologic Swallowing Difficulty/Aspiration Risk : None Extremity Movement : Equal Facial Symmetry : Symmetric Characteristics of Speech : Clear FAITH BEAUCHAMP 11/24/2016 12:04 CDT Activity Patient Position : Elevate head of bed 45 degrees Activity Status ADL : Up ad janet Activity Assistance : Independent FAITH BEAUCHAMP 11/24/2016 12:04 CDT PARSAP Activity Status : Moves 4 extremities voluntarily or on command Dressing : Dry and clean Respiratory Component : Able to deep breathe and cough freely Pain : Pain mild, handled by oral medication Circulation Component : BP 20% of preanesthetic level Ambulation : Able to stand up and walk straight Consciousness : Fully awake Fasting and Feeding : Able to drink fluids Oxygen Saturation - Sedation : Can maintain > 92% on room air Urine Output, PARSAP : Has voided (Comment: says voiding had relieved much of abdominal pressure [FAITH BEAUCHAMP 11/24/2016 12:04 CDT] ) PARSAP Score : 19 FAITH BEAUCHAMP 11/24/2016 12:04 CDT Thomas Thomas Agitation Sedation Scale (RASS) : Alert and calm RASS Score : 0 FAITH BEAUCHAMP 11/24/2016 12:04 CDT Silver Sensory Perception Silver : No impairment Moisture Silver : Rarely moist Activity Silver : Walks frequently Mobility Silver : No limitations Nutrition Silver : Excellent Friction and Shear Silver : No apparent problem Silver Score : 23 FAITH BEAUCHAMP RN - 11/24/2016 12:04 CDT Falls Assessment Fall Injury Risk History of Falls : No Patient at Risk for Falls : No Fall Injury Risk Factors : None of the below Risk Factors Patient has increased Fall Injury Risk : No FAITH BEAUCHAMP RN - 11/24/2016 12:04 CDT Hendrich II Fall Risk Confusion/Disorientation Hendrich : No Depression Fall Risk Hendrich : No Altered Elimination Fall Risk Hendrich : No Dizziness/Vertigo Fall Risk Hendrich : No Gender, Male Fall Risk Hendrich : No Prescribed Antiepileptics Hendrich : No Prescribed Benzodiazepines Hendrich : Yes Rising From Chair Fall Risk Hendrich : Pushes up, successful in one attempt Fall Risk Score Hendrich II : 2 FAITH BEAUCHAMP RN - 11/24/2016 12:04 CDT Safe Patient Handling Safe Pt Handling Independent : Yes - No equipment needed Safe Pt Handling Equipment Rec : No Equipment Needed FAITH BEAUCHAMP RN - 11/24/2016 12:04 CDT Source: [employer] Document Id: [id number] CDT!118 Miscellaneous - Faith Beauchamp R.N. - 11/24/2016 10:10 AM CDT Adult Postprocedure Assessment Adult Postprocedure Assessment Entered On: 11/24/2016 11:57 CDT Performed On: 11/24/2016 10:10 CDT by FAITH BEAUCHAMP RN Vital Signs Temperature Core : 36.6 DegC(Converted to: 97.9 DegF) Peripheral Pulse Rate : 74 /min Respiratory Rate : 16 /min Systolic Blood Pressure : 120 mmHg Diastolic Blood Pressure : 79 mmHg NIBP Mean : 93 mmHg SpO2 : 100 % Oxygen Saturation Monitoring Frequency : Continuous Oxygen Therapy : Simple mask Height : 158 cm(Converted to: 5 ft 2 inch(es)) FAITH BEAUCHAMP RN - 11/24/2016 11:53 CDT General Level of Consciousness : Alert Orientation : Oriented x 3 Skin Color : Normal for ethnicity Skin Description : Dry Skin Temperature : Warm Pain Symptoms : Yes FAITH BEAUCHAMP 11/24/2016 11:53 CDT Pain Scale Pain Scale Verbal 0-10 : Open FAITH BEAUCHAMP 11/24/2016 11:53 CDT Pain Pain Assessment Grid Pain 1 Pain 2 Location : Abdomen Lower back Laterality : Bilateral Bilateral Intensity : 7 7 FAITH BEAUCHAMP 11/24/2016 11:53 CDT FAITH BEAUCHAMP 11/24/2016 11:53 CDT Cardiovascular Heart Rhythm : Regular Nail Bed Color : [place] Capillary Refill : Less than 2 seconds Antiembolism Device : Sequential Compression Device Antiembolism Device Laterality : Bilateral FAITH BEAUCHAMP 11/24/2016 11:53 CDT Respiratory Respirations : Unlabored Distress : None Respiratory Pattern : Regular FAITH BEAUCHAMP 11/24/2016 11:53 CDT GI/ Nausea Symptoms : No FAITH BEAUCHAMP 11/24/2016 11:53 CDT Integumentary Skin Color : Normal for ethnicity Skin Description : Dry Skin Temperature : Warm FAITH BEAUCHAMP 11/24/2016 11:53 CDT Incision/Wound Incision/Wound Care Grid Activity : Assessed Wound Type : Other: laproscopic Location : Abdomen Laterality : Left, Right, Central Description : Dry FAITH BEAUCHAMP 11/24/2016 11:53 CDT Peripheral IV Peripheral IV Assess/Intervention Grid Peripheral IV #1 IV Activity : Assessment Date of Insertion : 11/24/2016 CDT Discontinued Date : 11/24/2016 CDT IV Site : Hand Laterality : Left Catheter Size : 18 Catheter Type : Over the needle Infiltration Score : 0 Phlebitis Score : 0 Flow/ Patency : No complications FAITH BEAUCHAMP 11/24/2016 11:53 CDT Neurologic Swallowing Difficulty/Aspiration Risk : None Extremity Movement : Equal Facial Symmetry : Symmetric Characteristics of Speech : Clear FAITH BEAUCHAMP 11/24/2016 11:53 CDT Activity Patient Position : Lying on left side FAITH BEAUCHAMP 11/24/2016 11:53 CDT PARSAP Activity Status : Moves 4 extremities voluntarily or on command Dressing : Dry and clean Respiratory Component : Able to deep breathe and cough freely Pain : Severe pain requires parenteral medication Circulation Component : BP 20% of preanesthetic level Consciousness : Arouses on calling Oxygen Saturation - Sedation : Can maintain > 92% on room air FAITH BEAUCHAMP RN - 11/24/2016 11:53 CDT Thomas Thomas Agitation Sedation Scale (RASS) : Drowsy RASS Score : -1 FAITH BEAUCHAMP RN - 11/24/2016 11:53 CDT Silver Sensory Perception Silver : No impairment Moisture Silver : Rarely moist Activity Silver : Bedfast Mobility Silver : No limitations Nutrition Silver : Adequate Friction and Shear Silver : No apparent problem Silver Score : 19 FAITH BEAUCHAMP RN - 11/24/2016 11:53 CDT Falls Assessment Fall Injury Risk History of Falls : No Patient at Risk for Falls : Yes Fall Injury Risk Factors : None of the below Risk Factors Patient has increased Fall Injury Risk : No FAITH BEAUCHAMP RN - 11/24/2016 11:53 CDT Hendrich II Fall Risk Confusion/Disorientation Hendrich : No Depression Fall Risk Hendrich : No Altered Elimination Fall Risk Hendrich : No Dizziness/Vertigo Fall Risk Hendrich : No Gender, Male Fall Risk Hendrich : No Prescribed Antiepileptics Hendrich : No Prescribed Benzodiazepines Hendrich : Yes Rising From Chair Fall Risk Hendrich : Unable to rise without assistance Fall Risk Score Hendrich II : 5 FAITH BEAUCHAMP RN - 11/24/2016 11:53 CDT Safe Patient Handling Safe Pt Handling Independent : No Safe Pt Handling Supervision/Minimal Assistance : Yes - Unmotorized Equipment Safe Pt Handling Equipment Rec : Unmotorized Equipment FAITH BEAUCHAMP RN - 11/24/2016 11:53 CDT Source: [employer] Document Id: [id number] CDT!113 Miscellaneous - Faith Beauchamp R.N. - 11/24/2016 9:55 AM CDT Adult Postprocedure Assessment Adult Postprocedure Assessment Entered On: 11/24/2016 11:47 CDT Performed On: 11/24/2016 9:55 CDT by FAITH BEAUCHAMP RN Vital Signs Temperature Core : 36.4 DegC(Converted to: 97.5 DegF) (LOW) Peripheral Pulse Rate : 79 /min Respiratory Rate : 16 /min Systolic Blood Pressure : 115 mmHg Diastolic Blood Pressure : 73 mmHg NIBP Mean : 87 mmHg SpO2 : 100 % Oxygen Flow Rate : 8.0 L/min Oxygen Therapy : Simple mask Height : 158 cm(Converted to: 5 ft 2 inch(es)) FAITH BEAUCHAMP 11/24/2016 11:46 CDT General Level of Consciousness : Drowsy Orientation : Oriented x 3 Skin Color : Normal for ethnicity Skin Description : Dry Skin Temperature : Warm Pain Symptoms : Yes FAITH BEAUCHAMP 11/24/2016 11:48 CDT Pain Scale Pain Scale Verbal 0-10 : Open FAITH BEAUCHAMP 11/24/2016 11:48 CDT Pain Pain Assessment Grid Pain 1 Pain 2 Location : Abdomen Lower back Laterality : Bilateral Bilateral Intensity : 7 7 FAITH BEAUCHAMP 11/24/2016 11:48 CDT FAITH BEAUCHAMP 11/24/2016 11:48 CDT Cardiovascular Heart Rhythm : Regular Nail Bed Color : [place] Capillary Refill : Less than 2 seconds Antiembolism Device : Sequential Compression Device Antiembolism Device Laterality : Bilateral FAITH BEAUCHAMP 11/24/2016 11:48 CDT Respiratory Respiratory Patient Stated Symptoms : None Respirations : Unlabored Distress : None Respiratory Pattern : Regular FAITH BEAUCHAMP 11/24/2016 11:48 CDT GI/ Nausea Symptoms : No FAITH BEAUCHAMP 11/24/2016 11:48 CDT Integumentary Skin Color : Normal for ethnicity Skin Description : Dry Skin Temperature : Warm FAITH BEAUCHAMP 11/24/2016 11:48 CDT Incision/Wound Incision/Wound Care Grid Activity : Assessed Dressing, Assessed Wound Type : Other: laproscopic Location : Abdomen Laterality : Left, Right, Central Description : Dry FAITH BEAUCHAMP 11/24/2016 11:48 CDT Peripheral IV Peripheral IV Assess/Intervention Grid Peripheral IV #1 IV Activity : Assessment Removal : Catheter intact, Hemostasis within expected timeframe Date of Insertion : 11/24/2016 CDT Discontinued Date : 11/24/2016 CDT IV Site : Hand Laterality : Left Catheter Size : 18 Catheter Type : Over the needle Infiltration Score : 0 Phlebitis Score : 0 Flow/ Patency : No complications FAITH BEAUCHAMP 11/24/2016 11:48 CDT Neurologic Swallowing Difficulty/Aspiration Risk : None Extremity Movement : Equal Facial Symmetry : Symmetric Characteristics of Speech : Clear FAITH BEAUCHAMP RN - 11/24/2016 11:48 CDT Activity Patient Position : Lying on left side FAITH BEAUCHAMP RN - 11/24/2016 11:48 CDT PARSAP Activity Status : Moves 4 extremities voluntarily or on command Dressing : Dry and clean Respiratory Component : Able to deep breathe and cough freely Pain : Severe pain requires parenteral medication Circulation Component : BP 20% of preanesthetic level Consciousness : Arouses on calling Oxygen Saturation - Sedation : Needs oxygen to maintain greater than 90% FAITH BEAUCHAMP RN - 11/24/2016 11:48 CDT Thomas Thomas Agitation Sedation Scale (RASS) : Drowsy RASS Score : -1 FAITH BEAUCHAMP RN - 11/24/2016 11:48 CDT Silver Sensory Perception Silver : No impairment Moisture Silver : Rarely moist Activity Silver : Bedfast Mobility Silver : No limitations Nutrition Silver : Excellent Friction and Shear Silver : No apparent problem Silver Score : 20 FAITH BEAUCHAMP RN - 11/24/2016 11:48 CDT Falls Assessment Fall Injury Risk History of Falls : No Patient at Risk for Falls : Yes Fall Injury Risk Factors : None of the below Risk Factors Patient has increased Fall Injury Risk : No FAITH BEAUCHAMP RN - 11/24/2016 11:48 CDT Hendrich II Fall Risk Confusion/Disorientation Hendrich : No Depression Fall Risk Hendrich : No Altered Elimination Fall Risk Hendrich : No Dizziness/Vertigo Fall Risk Hendrich : No Gender, Male Fall Risk Hendrich : No Prescribed Antiepileptics Hendrich : No Prescribed Benzodiazepines Hendrich : Yes Rising From Chair Fall Risk Hendrich : Unable to rise without assistance Fall Risk Score Hendrich II : 5 FAITH BEAUCHAMP RN - 11/24/2016 11:48 CDT Safe Patient Handling Safe Pt Handling Independent : No Safe Pt Handling Supervision/Minimal Assistance : Yes - Unmotorized Equipment Safe Pt Handling Equipment Rec : No Equipment Needed FAITH BEAUCHAMP RN - 11/24/2016 11:48 CDT Source: [employer] Document Id: [id number] CDT!115 Miscellaneous - NitoSpringFaith A, R.N. - 11/24/2016 9:40 AM CDT Adult Postprocedure Assessment Adult Postprocedure Assessment Entered On: 11/24/2016 11:16 CDT Performed On: 11/24/2016 9:40 CDT by FAITH BEAUCHAMP RN Vital Signs Temperature Core : 36.2 DegC(Converted to: 97.2 DegF) (LOW) Peripheral Pulse Rate : 82 /min Respiratory Rate : 18 /min Systolic Blood Pressure : 123 mmHg Diastolic Blood Pressure : 82 mmHg NIBP Mean : 96 mmHg SpO2 : 100 % Oxygen Saturation Monitoring Frequency : Continuous Oxygen Flow Rate : 8.0 L/min Oxygen Therapy : Simple mask Height : 158 cm(Converted to: 5 ft 2 inch(es)) NITOSPRINGFAITH A RN - 11/24/2016 11:11 CDT General Level of Consciousness : Drowsy Skin Color : Normal for ethnicity Skin Description : Dry Skin Temperature : Warm NITO FAITH A RN - 11/24/2016 11:11 CDT Cardiovascular Heart Rhythm : Regular Nail Bed Color : [place] Capillary Refill : Less than 2 seconds Antiembolism Device : Sequential Compression Device Antiembolism Device Laterality : Bilateral NITOSPRINGFAITH A RN - 11/24/2016 11:11 CDT Respiratory Respiratory Patient Stated Symptoms : None Respirations : Unlabored Distress : None Respiratory Pattern : Regular Cough and Deep Breathe : Done NITOSPRINGFAITH A RN - 11/24/2016 11:11 CDT GI/ Nausea Symptoms : No FAITH BEAUCHAMP RN - 11/24/2016 11:11 CDT Integumentary Skin Color : Normal for ethnicity Skin Description : Dry Skin Temperature : Warm FAITH BEAUCHAMP Emiliano RN - 11/24/2016 11:11 CDT Incision/Wound Incision/Wound Care Grid Activity : Assessed Wound Type : Other: laproscopic Location : Abdomen Laterality : Left, Right, Central Description : Dry NITO FAITH A RN - 11/24/2016 11:11 CDT Peripheral IV Peripheral IV Assess/Intervention Grid Peripheral IV #1 IV Activity : Assessment Date of Insertion : 11/24/2016 CDT IV Site : Hand Laterality : Left Catheter Size : 18 Catheter Type : Over the needle Infiltration Score : 0 Phlebitis Score : 0 Flow/ Patency : No complications NITOSPRINGFAITH A RN 11/24/2016 11:11 CDT I&O Other Intake : 1,400 mL (Comment: I.V. fluids reported by PROFESSOR OF BIOCHEMISTRY [FAITH BEAUCHAMP 11/24/2016 11:11 CDT] ) Estimated Blood Loss : 10 mL FAITH BEAUCHAMP 11/24/2016 11:11 CDT Neurologic Swallowing Difficulty/Aspiration Risk : None Extremity Movement : Equal Facial Symmetry : Symmetric FAITH BEAUCHAMP 11/24/2016 11:11 CDT Activity Patient Position : Elevate head of bed 30 degrees FAITH BEAUCHAMP 11/24/2016 11:11 CDT Modified Brayden Activity : Moves 4 extremities voluntarily or on command Respiratory : Able to deep breathe and cough freely Circulation : BP +/- 20% of preprocedural level or not unusually high or low Consciousness : Arouses on calling O2 Saturation : Needs oxygen to maintain > 92% (Comment: per surgical protocol [FAITH BEAUCHAMP 11/24/2016 11:11 CDT] ) Brayden l Score : 8 FAITH BEAUCHAMP 11/24/2016 11:11 CDT Thomas Thomas Agitation Sedation Scale (RASS) : Drowsy RASS Score : -1 FAITH BEAUCHAMP 11/24/2016 11:11 CDT Silver Sensory Perception Silver : No impairment Moisture Silver : Rarely moist Activity Silver : Bedfast Mobility Silver : No limitations Nutrition Silver : Adequate Friction and Shear Silver : No apparent problem Silver Score : 19 FAITH BEAUCHAMP 11/24/2016 11:11 CDT Falls Assessment Fall Injury Risk History of Falls : No Patient at Risk for Falls : Yes (Comment: immediately post-op [FAITH BEAUCHAMP 11/24/2016 11:11 CDT] ) Fall Injury Risk Factors : None of the below Risk Factors Patient has increased Fall Injury Risk : No FAITH BEAUCHAMP 11/24/2016 11:11 CDT Hendrich II Fall Risk Confusion/Disorientation Hendrich : No Depression Fall Risk Hendrich : No Altered Elimination Fall Risk Hendrich : No Dizziness/Vertigo Fall Risk Hendrich : No Gender, Male Fall Risk Hendrich : No Prescribed Antiepileptics Hendrich : No Prescribed Benzodiazepines Hendrich : Yes Rising From Chair Fall Risk Hendrich : Unable to rise without assistance Fall Risk Score Hendrich II : 5 FAITH BEAUCHAMP RN - 11/24/2016 11:11 CDT Safe Patient Handling Safe Pt Handling Independent : No Safe Pt Handling Supervision/Minimal Assistance : Yes - Unmotorized Equipment Safe Pt Handling Equipment Rec : Unmotorized Equipment FAITH BEAUCHAMP RN - 11/24/2016 11:11 CDT Source: [employer] Document Id: [id number] CDT!102 Miscellaneous - Irina Woods R.N. - 11/24/2016 7:12 AM CDT Height/Length Height/Length Entered On: 11/24/2016 7:12 CDT Performed On: 11/24/2016 7:12 CDT by IRINA WOODS RN Height/Length Height : 158 cm IRINA WOODS RN - 11/24/2016 7:12 CDT Source: [employer] Document Id: [id number] CDT!3 documented in this encounter Plan of Treatment Not on filedocumented as of this encounter Visit Diagnoses Not on filedocumented in this encounter Care Teams Groundskeeper Supervisor Relationship Specialty Start Date End Date Juana Deshpande P.A.-C. PCP - General 10/24/16 03/26/19 documented as of this encounter
--- OUTSIDE RECORDS SUMMARY | 2022-01-23 23:57 | XMS_ITS | Encounter Summary ---
:1985 Author Organization [facility] Address [address] [place] [address] Care Team Providers Name Role Phone Lissa Deshpande P.A.-C. Primary Care Provider [phone] Reason for Visit Reason Onset Date Comments Leg Pain 01/13/2019 Encounter Details Date Type Department Care Team Description 01/13/2019 Clinical Communication Department of Lissa Deshpande Pain Obstetrics and E, PClarisaAClarisa-CClarisa Gynecology in [facility] [id number] [place] [address] [place] [address] [place], [place] [phone] (Work) [phone] Social History Tobacco Use Types Packs/Day Years [...] or relatives? How often do you attend uatsdin or More than 4 times per year 05/31/2021 lutheran services? Do you belong to any clubs or Yes 05/31/2021 organizations such as uatsdin groups, unions, fraternal or athletic groups, or [...] place to sleep or slept in a residential (including now)? Sex Assigned at Date Recorded Female 01/23/2021 7:15 AM CDT documented as of this encounter Miscellaneous Notes Telephone Encounter - Preeti Pritchett R.N. - 01/13/2019 2:15 PM CDT INFORMATION DISCUSSED Called and spoke with Noa (13 wks ), she said that about 3 days ago she started having groin pain and was very sore on the inside of her thighs. Then last night she said that she could not get comfortable, so she called in today and spoke to the triage nurse. [place] [facility] [place] [facility] [place] [facility] She said that she had spoken to someone that recommended she go to the ER for possible blood clot Telephone Encounter - Claritza Osborne RN - 01/13/2019 1:03 PM CDT Patient notified of provider message. Patient is hesitant to be seen through the ED. Patient lives in [place] and states that every time she has gone into the ED there she ends up with a $200 billand no answers. Is the concern a blood clot? If so, could you order gustavo doppler to be done? Patient asking if there is somewhere else she can go to get answers rather than ED. Claritza Osborne, RN, Women's Health Triage.......... 01/13/2019 1:05 PM ? Back to top of Miscellaneous Notes Telephone Encounter - Domonique Byrd DO - 01/13/2019 12:34 PM CDT OK for ED evaluation (I'm not sure urgent care will see her in ) Domonique Byrd DO .................... 01/13/2019 12:35 PM ? Back to top of Miscellaneous Notes Telephone Encounter - Amberly Gustafson RN - 01/13/2019 11:[address] Byrd- please advise- Patient has tried position change, tylenol, ice, heat, stretching and nothing seems to be helping her groin pain on the left side- rates 10/04. She also has low back pain in the middle. Sometimes the pain will go all the way down to her calf. She has not noted any hardened area, redness or warmth in groin- but it is sensitive to touch. She did go on a trip recently where sheflew and was sitting for prolonged periods. With the left groin pain that is unrelieved by interventions- would you be concerned with a blood clot? Where would you recommend that the patient be evaluated for this pain? Urgent care/ED? Thanks. Amberly Gustafson RN Women???s ??Health Triage ....................?? 01/13/2019? 11:51 AM PLAN Disposition/Recommendation: referral for services She [facility] try going [facility], but they maytell her she needs to go to the ER. Education: patient/caller able to teach back Caller agreeable to plan of care: yes The following references were used: other triage notes Telephone Encounter - Jen Slater Luciano - 01/13/2019 1:30 PM CDT Noa called and stated that she is having leg pain. She was triaged by Shorter RN's She is a [place] patient. She is wondering about a possible blood clot and if it would be appropriate to access [facility] today, or if she should be seeing an OB doctor. She is not interested in ED. She can be reached at [phone]. documented in this encounter Plan of Treatment Not on filedocumented as of this encounter Visit Diagnoses Not on filedocumented in this encounter Care Teams Residential Property Manager Relationship Specialty Start Date End Date Lissa Deshpande P.A.-C. PCP - General 10/24/16 03/26/19 documented as of this encounter
--- OUTSIDE RECORDS SUMMARY | 2022-01-23 23:57 | XMS_ITS | Encounter Summary ---
:1985 Author Organization [facility] Address [address] [place] [address] Care Team Providers Name Role Phone Lissa Deshpande P.A.-C. Primary Care Provider [phone] Encounter Details Date Type Department Care Team Description 02/02/2018 Clinical Communication Department of Nirmal Loza [facility] Elizabeth Robison [facility], [id number] [place] [address] [phone] (Work) [phone] Social History Tobacco Use Types Packs/Day Years [...] or relatives? How often do you attend confucianism or More than 4 times per year 05/31/2021 yazidi services? Do you belong to any clubs or Yes 05/31/2021 organizations such as confucianism groups, unions, fraternal or athletic groups, or [...] or slept in a detention (including now)? Sex Assigned at Date Recorded Female 01/23/2021 7:15 AM CDT documented as of this encounter Miscellaneous Notes Telephone Encounter - Lisa Cueto - 02/02/2018 1:33 PM CDT Letter sent. Patient is due for the following: Health Maintenance Due Topic Date Due ??? Pap/HPV Screening 09/06/2017 documented in this encounter Plan of Treatment Not on filedocumented as of this encounter Visit Diagnoses Not on filedocumented in this encounter Care Teams Working Manager Relationship Specialty Start Date End Date Lissa Deshpande P.A.-C. PCP - General 10/24/16 03/26/19 documented as of this encounter
--- OUTSIDE RECORDS SUMMARY | 2022-01-23 23:57 | XMS_ITS | Encounter Summary ---
:1985 Author Organization [facility] Address [address] [place] [address] Care Team Providers Name Role Phone Lissa Deshpande-CClarisa Primary Care Provider [phone] Encounter Details Date Type Department Care Team Description 07/29/2018 Orders Only [facility] Lissa Deshpande, P.A.-C. [address] [place] [address] (Wo rk) Social History Tobacco Use Types [...] or relatives? How often do you attend tenriism or More than 4 times per year 05/31/2021 jehovah's witness services? Do you belong to any clubs or Yes 05/31/2021 organizations such as tenriism groups, unions, fraternal or athletic groups, or [...] place to sleep or slept in a fpc (including now)? Sex Assigned at Date Recorded Female 01/23/2021 7:15 AM CDT documented as of this encounter Plan of Treatment Not on filedocumented as of this encounter Visit Diagnoses Not on filedocumented in this encounter Care Teams Juvenile Corrections Officer Relationship Specialty Start Date End Date Lissa Deshpande P.A.-C. PCP - General 10/24/16 03/26/19 documented as of this encounter
--- OUTSIDE RECORDS SUMMARY | 2022-01-23 23:57 | XMS_ITS | Encounter Summary ---
:1985 Author Organization [facility] Address [address] [place] [address] Care Team Providers Name Role Phone Mer Hoang APRN, C.N.P., D.N.P. Primary Care Provider Encounter Details Date Type Department Care Team Description 08/30/2019 Orders Only [facility] PCP [facility] Mer Hoang APRN, C.N.P., D.N.P. [id number] [place] [phone] (Wo rk) Social History Tobacco Use Types [...] or relatives? How often do you attend restorationist or More than 4 times per year 05/31/2021 taoist services? Do you belong to any clubs or Yes 05/31/2021 organizations such as restorationist groups, unions, fraternal or athletic groups, or [...] or slept in a custodial (including now)? Sex Assigned at Date Recorded Female 01/23/2021 7:15 AM CDT documented as of this encounter Plan of Treatment Not on filedocumented as of this encounter Visit Diagnoses Not on filedocumented in this encounter Care Teams Customer Acquisition Manager Relationship Specialty Start Date End Date Mer Hoang APRN, C.N.P., D.N.P. PCP - General 03/27/19 02/26/[address] [phone] documented as of this encounter
--- OUTSIDE RECORDS SUMMARY | 2022-01-23 23:57 | XMS_ITS | Encounter Summary ---
:1985 Author Organization [facility] Address [address] [place] [address] Care Team Providers Name Role Phone Juana Deshpande P.A.-C. Primary Care Provider [phone] Encounter Details Date Type Department Care Team Description 12/03/2016 Hospital Encounter HX [facility] Ozzie Deshpande P.AClarisa-CClarisa [address] [place] [address] (Wo rk) Social History Tobacco Use Types Packs/Day Years Used Date Smoking Tobacco: Never Alcohol Habits Answer Date Recorded [...] or relatives? How often do you attend holiness or More than 4 times per year 05/31/2021 restorationist services? Do you belong to any clubs or Yes 05/31/2021 organizations such as holiness groups, unions, fraternal or athletic groups, or [...] mouth. tablet documented as of this encounter Progress Notes Juana Cota - 12/03/2016 1:02 PM CDT Clinic Full Note CHIEF COMPLAINT/REASON FOR VISIT Follow up on lap renate incision HISTORY OF PRESENT ILLNESS Patient is a 31 year old female who presents today for evaluation of incisions. The patient had laparoscopic cholecystectomy on 11/24/16. The patient notes she was doing well following surgery but for the past couple days she has had some stinging/achy pain just below the umbilicus. She denies any drainage, fevers or chills. She follows up with Dr. Hernandez next week. Patient also notes she ate hamburger in a taco salad yesterday. Since that time she has been feeling bloated. She denies any diarrhea or constipation currently. She had some constipation immediately after surgery but this has improved. MEDICATIONS Multivitamins with Vitamin B Complex, Vitamin C, Minerals and L- Methylfolate oral capsule,1 cap(s), PO, Daily Vitamin D with Minerals oral tablet, 1 tab(s), PO, Daily ALLERGIES Monistat 7 PAST MEDICAL HISTORY Chronic Gallstone NOS Migraine Headache (DIMAS) NOS Historical No historical problems PROCEDURES/SURGICAL HISTORY Cholecystectomy (11/24/2016), Pap smear (02/2015), Extraction of wisdom tooth. SOCIAL HISTORY Date Time: 12/03/2016 12:28 Tobacco: Smoking Status: Never smoker Exposure: Other: never Alcohol: Use: No Results Found Recreational Drugs: Use: None Type: No Results Found FAMILY HISTORY Mother: Negative: Father: Negative: Sister: Negative: Brother:Positive: Diabetes mellitus SYSTEMS REVIEW As noted above VITAL SIGNS T: 36.8 ??C (Core) HR: 93 RR: 16 BP: 110 / 80 HT: 158 cm WT: 70.2 kg BMI: 28.12 PHYSICAL EXAMINATION GENERAL: Patient is in no distress. HEENT: Normocephalic. PERRL NECK: Supple SKIN: Incisions healing well. Incision neat the umbilicus with mild pink like erythema underneath the glue that is flaking off. No tenderness inferior to the incision (where the patient indicates the pain is located) NEURO: Alert and nonfocal, moving all 4 extremities PSYCH: Appropriate affect IMPRESSION/REPORT/PLAN Aftercare Postoperative Incision Incisions are healing well. No signs of infection at this time. Patient can follow up with Dr. Hernandez next week. All her questions at this time were answered today. Electronically Signed By: JUANA COTA PA-C On: 12/05/2016 08:37 AM Source: [facility] Document Id: [id number] documented in this encounter Miscellaneous Notes Telephone Encounter - Ivan Telles R.N. - 12/04/2016 4:57 PM CDT Incision concern From: IVAN TELLES RN Sent: 12/04/2016 16:57:00 CDT Subject: Incision concern Caller is: ( x ) Patient ( ) Mother ( ) Father ( ) Spouse ( ) Daughter ( ) Son ( ) Pharmacy ( ) Other: Physician: Dr. Hernandez Patient Reason for Call: Incision concern Message: Patient had a lap renate performed by Dr. Hernandez on 11/24/16. She reports she was seen in clinic by her PCP yesterday because her sutures looked funky. She did have a clinic visit on 12/03/16 with Juana Cota PA-C and it is documented that incisions are healing well with no signs of infection. She reports she took a shower and today the glue came off of incisions and they all look good exceptfor the far right incision looks different...it is not together and closed like the other ones. She denies that it is gaping open, bleeding or has any drainage. She reports it is white in the center. She denies it is red, swollen or warm to the touch. She also denies fever, chills, body aches, nausea, vomiting or feeling ill. Patient is scheduled for her first post op on 12/10/[address] Hernandez. Advice/Action: Advised patient to keep it covered with a non-adherent dressing or band aide and keepin clean and dry and monitor it for changes. Call back or seek medical care if she develops any of the symptoms discussed above. Patient voiced understanding and plan to comply. Source used: ( ) Verbalizes understanding of instructions ( ) Instructed to call back if symptoms worsen or do not resolve ( ) Refused to see provider ( ) Appointment Scheduled ( ) OK to leave message on voice mail ( ) Patient told to expect return call: ( ) today ( ) tomorrow ( ) next work day ( ) Patient's email ( ) Patient told physician out of office, will call upon return call on ( ) ( ) Patient told physician out of office, routed to other physician ( ) Other ( ) Call back telephone number ( ) Call back cell phone number ( ) Source: [facility] POWERCHART Document Id: [id number] Miscellaneous - Samantha Davison, LClarisaP.N. - 12/03/2016 12:28 PM CDT Adult Vertica Architect Intake/History Adult Vertica Architect Intake/History Entered On: 12/03/2016 12:33 CDT Performed On: 12/03/2016 12:28 CDT by SAMANTHA DAVISON MEDICAID BILLER Intake Chief Complaint : Follow up on lap renate incision Temperature Core : 36.8 DegC(Converted to: 98.2 DegF) Peripheral Pulse Rate : 93 /min Respiratory Rate : 16 /min Heart Rhythm : Regular Systolic Blood Pressure : 110 mmHg Diastolic Blood Pressure : 80 mmHg NIBP Mean : 90 mmHg BP Location : Left upper extremity Blood Pressure Cuff Size : Regular Height : 158 cm(Converted to: 5 ft 2 inch(es), 62 inch(es)) Actual Weight : 70.2 kg(Converted to: 154 lb 12 oz) Weight Source : Standing scale Dosing Weight Clinic : 70.2 kg Clinic BSA : 1.76 Body Mass Index : 28.12 kg/m2 SAMANTHA DAVISON LPN - 12/03/2016 12:28 CDT General Info Information Given By : Patient Languages : Syriac Is Patient Female and 13-50 no hysterectomy : Yes Status : Patient denies Are you ? : No SAMANTHA DAVISON [facility] - 12/03/2016 12:28 CDT Subjective Pain Symptoms : Yes SAMANTHA DAVISON [facility] - 12/03/2016 12:28 CDT Pain Scale Pain Scale Verbal 0-10 : Open SAMANTHA DAVISON [facility] - 12/03/2016 12:28 CDT Pain Pain Assessment Grid Pain 1 Location : Abdomen Intensity : 5 SAMANTHA DAVISON LPN - 12/03/2016 12:28 CDT Dependent Habits Exposure to Tobacco Smoke : Other: never Smoking Status : Never smoker Tobacco 2A : No Tobacco Use/Currently Using : No Tobacco Use/Last 30 Days : No Tobacco Use/Last 12 months : No SAMANTHA DAVISON [facility] - 12/03/2016 12:28 CDT Caffeine Use Grid Caffeine Use : Current Type : Coffee Frequency : Daily SAMANTHA DAVISON LPN - 12/03/2016 12:28 CDT Recreational Drug Use Grid Drug Use : None SAMANTHA DAVISON LPN - 12/03/2016 12:28 CDT Source: [facility] POWERCHART Document Id: [id number] CDT!48 documented in this encounter Plan of Treatment Not on filedocumented as of this encounter Visit Diagnoses Not on filedocumented in this encounter Care Teams Account Development Representative Relationship Specialty Start Date End Date Juana Deshpande P.A.-C. PCP - General 10/24/16 03/26/19 documented as of this encounter
--- OUTSIDE RECORDS SUMMARY | 2022-01-23 23:57 | XMS_ITS | Encounter Summary ---
:1985 Author Organization [facility] Address [address] [place] [address] Care Team Providers Name Role Phone Lissa Deshpande P.A.-C. Primary Care Provider Encounter Details Date Type Department Care Team Description 12/10/2016 Hospital Encounter [facility]X [facility] Dwight Hernandez SURGCLINI M.D. [address] [place] [phone] (Wo rk) Social History Tobacco Use [...] or relatives? How often do you attend scientology or More than 4 times per year 05/31/2021 hoahaoism services? Do you belong to any clubs or Yes 05/31/2021 organizations such as scientology groups, unions, fraternal or athletic groups, or [...] Sign Reading Time Taken Comments Blood Pressure 110/68 12/10/2016 3:18 PM CDT Pulse 89 12/10/2016 3:18 PM CDT Temperature - - Respiratory Rate 16 12/10/2016 3:18 PM CDT Oxygen Saturation - - Inhaled Oxygen Concentration - - Weight - - Height 158 cm (5' 2.21) 12/10/2016 3:18 PM CDT Body Mass Index - - documented [...] mouth. tablet documented as of this encounter Plan of Treatment Not on filedocumented as of this encounter Visit Diagnoses Not on filedocumented in this encounter Care Teams Caustic Loader Relationship Specialty Start Date End Date Lissa Deshpande P.A.-C. PCP - General 10/24/16 03/26/19 documented as of this encounter
--- OUTSIDE RECORDS SUMMARY | 2022-01-23 23:57 | XMS_ITS | Encounter Summary ---
:1985 Author Organization [facility] Address [address] [place] [address] Care Team Providers Name Role Phone Mer Hoang APRN C.N.P., D.N.P. Primary Care Provider Encounter Details Date Type Department Care Team Description 02/04/2021 Orders Only Department of Family Therese Lock, Medicine, [place] [facility], P.A[facility], in [address] [phone] Social History Tobacco Use [...] or relatives? How often do you attend christianity or More than 4 times per year 05/31/2021 confucianism services? Do you belong to any clubs or Yes 05/31/2021 organizations such as christianity groups, unions, fraternal or athletic groups, or [...] documented as of this encounter Care Teams Estate Planner Relationship Specialty Start Date End Date Mer Hoang APRN, C.N.P., D.N.P. PCP - General 03/27/19 02/26/[address] [place] [phone] documented as of this encounter
--- OUTSIDE RECORDS SUMMARY | 2022-01-23 23:57 | XMS_ITS | Encounter Summary ---
:1985 Author Organization [facility] Address [address] [place] [address] Care Team Providers Name Role Phone Lissa Deshpande P.A.-C. Primary Care Provider [phone] Reason for Visit Reason Comments Communication Encounter Details Date Type Department Care Team Description 08/10/2017 Clinical Communication Department of Nirmal Loza Communication Medicine, [place] Dea Robison [facility], [address] [address] [place], [place] [phone] (Work) [phone] Social History Tobacco Use Types Packs/Day Years [...] or relatives? How often do you attend confucianist or More than 4 times per year 05/31/2021 mandaeism services? Do you belong to any clubs or Yes 05/31/2021 organizations such as confucianist groups, unions, fraternal or athletic groups, or [...] or slept in a retirement (including now)? Sex Assigned at Date Recorded Female 01/23/2021 7:15 AM CDT documented as of this encounter Plan of Treatment Not on filedocumented as of this encounter Visit Diagnoses Not on filedocumented in this encounter Care Teams Layout Artist Relationship Specialty Start Date End Date Lissa Deshpande P.A.-C. PCP - General 10/24/16 03/26/19 documented as of this encounter
--- OUTSIDE RECORDS SUMMARY | 2022-01-23 23:57 | XMS_ITS | Encounter Summary ---
:[address] [facility] Address [address] [place] [address] Care Team Providers Name Role Phone Juana Deshpande P.A.-C. Primary Care Provider Encounter Details Date Type Department Care Team Description 11/05/2016 Hospital Encounter [facility] Mehnaz Da Silva SURGCLINI M.D. [address] [place] [phone] (Wo rk) Social History Tobacco Use [...] or relatives? How often do you attend islam or More than 4 times per year 05/31/2021 jain services? Do you belong to any clubs or Yes 05/31/2021 organizations such as islam groups, unions, fraternal or athletic groups, or [...] Reading Time Taken Comments Blood Pressure 110/76 11/05/2016 2:19 PM CDT Pulse 80 11/05/2016 2:19 PM CDT Temperature - - Respiratory Rate 16 11/05/2016 2:19 PM CDT Oxygen Saturation - - Inhaled Oxygen Concentration - - Weight 72.6 kg (160 lb 0.9 oz) 11/05/2016 2:19 PM CDT Height 160 cm (5' 2.99) 11/05/2016 2:19 PM CDT Body Mass Index 28.36 11/05/2016 2:19 PM CDT documented in this encounter Medications [...] mouth. tablet documented as of this encounter Consult Notes Mehnaz Da Silva M.D. - 11/05/2016 2:09 PM CDT [id number] CHIEF COMPLAINT/REASON FOR VISIT Gallstones. HISTORY OF PRESENT ILLNESS Noa is a 31-year-old female who recently had an episode of abdominal pain. This started acutely on 10/17/2016 after eating a meal with fatty foods. Pain was perceived to be fairly diffuse but worseon the right side of her abdomen. She was seen at urgent care at [facility] and underwent an evaluation. Pain seemed to radiate to her back but not up to her shoulders. She also had some nausea but no vomiting. No yellowing of her skin or eyes. No fever or chills. No diarrhea or constipation. She has had similar episodes in the past which seemed to be related to meals as well. This was her worst episode. She tried Tylenol but this was not effective in alleviating her pain. She has never had abdominal surgery before. PAST MEDICAL/SURGICAL HISTORY PAST MEDICAL HISTORY: History of migraines. PAST SURGICAL HISTORY: No previous surgeries. ALLERGIES Monistat. MEDICATIONS Multivitamin. FAMILY HISTORY No history of bleeding disorders or anesthesia reactions. SOCIAL HISTORY Patient does not smoke. She occasionally drinks alcohol. She is and lives with her . She has a 1-year-old at home who she is breast feeding. SYSTEMS REVIEW A full 14-point review of systems was reviewed with the patient. Systems reviewed include constitutional, HEENT, cardiovascular, respiratory, gastrointestinal, genitourinary, musculoskeletal, skin, endocrine, hematologic, neurologic and psychiatric. All pertinent items are included in the History of Present Illness, Past Medical/Surgical History. PHYSICAL EXAMINATION VITAL SIGNS: Temperature 36.6, heart rate 80, respiratory rate 16, blood pressure 110/76, oxygen saturation 99% on room air. GENERAL: Well-developed, well-nourished female in no acute distress. Sitting comfortably in examination room. HEENT: Head is atraumatic, normocephalic. Symmetrical features. External ears and nose normal. Moistmucous membranes. No pharyngeal erythema. Eyes: Pupils equal, round, reactive to light. Extraocular movements are intact. No scleral icterus. CARDIOVASCULAR: Heart is regular rate and rhythm. Normal S1, S2. No murmurs. Palpable and symmetric radial pulses bilaterally. No peripheral edema or cyanosis. RESPIRATORY: Normal respiratory effort. Lungs clear to auscultation bilaterally. No wheezes, crackles, rales. No cough. GASTROINTESTINAL: Abdomen is soft and nondistended. Mild tenderness to deep palpation in the right upper quadrant. No rebound or guarding. No masses, scars, organomegaly or hernias detected. MUSCULOSKELETAL: Moves all extremities. No deformities or lesions. SKIN: Warm and dry. No rashes or jaundice. NEUROLOGIC: Alert and oriented x3. Cranial nerves II to XII grossly intact. Normal strength and sensation x4 extremities. Normal gait and balance. PSYCHIATRIC: Normal affect, pleasant, cooperative. DIAGNOSTICS LABORATORY: Lab tests from 10/17/2016 reviewed in paperwork the patient brought with her today. Her white blood cell count is mildly elevated at 13.8, hemoglobin is normal at 13.9, platelets are normalat 379, alkaline phosphatase is normal at 95, bilirubin normal at 0.5, albumin normal at 4.3, AST elevated at 179, ALT elevated at 113 and lipase normal at 42. Urine test is negative. IMAGING: Abdominal ultrasound 10/17/2016. Ultrasound report is available to me. However I am unable to see the images themselves. Abdominal ultrasound shows echogenic shadowing gallstones within the gallbladder. No gallbladder wall thickening or pericholecystic fluid. A few low-level echoes seen within the gallbladder compatible with sludge. Liver has unremarkable echotexture. No biliary dilation. Sonographic Gonzalez sign negative. IMPRESSION/REPORT/PLAN A 31-year-old female with symptomatic cholelithiasis. PLAN: I discussed the pathophysiology of gallbladder disease with Noa. Her treatment options arewatchful waiting versus surgical removal of the gallbladder. I described the procedure details of a laparoscopic cholecystectomy, possible open in the operating room. We also discussed the expected postoperative course and the potential complications. Complications discussed include bleeding, infection, bowel injury, solid organ injury, common bile duct injury, bile leak, retained stone, anesthesia reaction, perioperative myocardial infarction, blood clots, respiratory failure and stroke. She is agre eable to proceed forward with the procedure and will be scheduled on an elective outpatient basis. Lanetteill have her see one of our primary care providers here for preoperative history and physical examination and clearance for general anesthesia. Patient will call me with any questions or concerns. Otherwise, I will see on her planned operative date. I have also recommended she avoid any fatty or fried foods until surgery. Mehnaz Da Silva M.D./nancy Electronically Signed By: MEHNAZ DA SILVA MD On: 11/05/2016 05:03 PM Source: [facility] DIANASDOLBEYNDAYSI Document Id: [id number] documented in this encounter Miscellaneous Notes Miscellaneous - Mehnaz Da Silva M.D. - 11/05/2016 3:01 PM CDT Ambulatory Patient Summary [address] 24 [facility] HIEN Simpson [id number] Visit Information Name: NOA FRANCO [facility] Number: [id number] Current Date: 11/05/2016 15:01:38 Physicians Attending Provider: MEHNAZ DA SILVA MD Primary Care Provider: JUANA COTA PA-C NOA FRANCO has been given the following list of follow-up instructions, medication list,and patient education materials: Follow-up Instructions Your Medications Here is a list of your medications. It is important to take your medications as directed. Use a pillbox or chart to help remind you to take your medications. Please let your doctor or nurse know if you have problems taking your medications. Medication/Strength How to Take Indications/Special Instructions/Comments/Notes for Patient Medication Changes/Routing multivitamin with minerals (Vitamin D with Minerals oral tablet) 1 Tablet(s), Oral, once a day multivitamin, ( Multivitamins with Vitamin B Complex, Vitamin C, Minerals and L-Methylfolate oral capsule) 1 cap, Oral, once a day Stop Taking the Following Medications: Medication list as of 11-05-16 15:01 Attention: If you have any medications at home that are not on this list, DO NOT take them until youcontact your provider for clarification. Give a copy of your medication list to your primary care provider. Update your medication list any time medications or doses are changed and carry your medication list at all times in case of emergency. Electronically Signed By: MEHNAZ DA SILVA MD Signed On:05-NOV-2016 14:53:06 Your Allergies & Intolerances Substance Reaction Symptoms Category Comments Monistat 7 Drug Your Problem List Problem Status Onset Comments No Problems found Your Upcoming Appointments Date Time Location Provider 11/10/2016 09:00 [facility] Family Med Juana Cota PA-C Attention: Contact your local Clinic if further appointment detail needed. Gallstones With Biliary Colic [Confirmed Dx] The abdominal pain that you have today is due to spasm of the gallbladder. The gallbladder is a small sac under the liver which stores and releases bile. Bile is a fluid that aids in the digestion of fat. A gallstone may form inside the gallbladder and block the flow of bile fluid. This causes mild tosevere crampy pain in the mid or right upper abdomen with nausea and vomiting. Home Care: ?? Rest in bed and follow a clear liquid diet until feeling better. If pain or nausea medicine was given to help with your symptoms, take these as directed. ?? Fat in your diet makes the gallbladder contract and may cause increased pain. Therefore, avoid fat in your diet over the next two days and follow a low-fat diet after that. If you are overweight, a low-fat diet will also help you lose weight. Follow Up with your doctor. There is a 50% chance that you will have another episode of pain from your gallstones during the next 2 years. Removal of the gallbladder is the treatment of choice to prevent this. Schedule an appointment with your own doctor during the next week to discuss the treatment options. Get Prompt Medical Attention if any of the following occur: ?? Pain gets worse or moves to the right lower abdomen ?? Repeated vomiting ?? Swelling of the abdomen ?? Pain lasts over 6 hours ?? Fever of 100.4?F (38?C) or higher, or as directed by your healthcare provider ?? Weakness, dizziness or fainting ?? Dark urine or light colored stools ?? Yellow color of the skin or eyes ?? Chest, arm, back, neck or jaw pain ?? [id number] [place] [address]. All rights reserved. This information is not intended as a substitute for professional medical care. Always follow your healthcare professional's instructions. Consider Using Patient Online Services Patient Online [...] if you dont have one. Go to [email or web address] and click on Create Your Account. Then, follow the directions to complete the online form. Youll be asked for your [facility] number which you can find at the top of this document. Your Goals/Additional instructions: This document has images extracted. Please consider using [employer] for all your patient education needs. Source: [facility] [employer]CHART Document Id: [id number] Miscellaneous - Mehnaz Da Silva M.D. - 11/05/2016 3:01 PM CDT Ambulatory Discharge Medication List [address] [id number] Visit Information Name: NOA FRANCO [facility] Number: [id number] Current Date: 11/05/2016 15:01:37 Attending Provider: MEHNAZ DA SILVA MD Primary Care Provider: JUANA COTA PA-C NOA HEALY FRANNY has been given the following list of medications: Your Medications It is important to take your medications as directed. Use a pill box or chart to help remind you to take your medications. Please let your doctor or nurse know if you have problems taking your medications. Medication/Strength How to Take Indications/Special Instructions/Comments/Notes for Patient Medication Changes/Routing multivitamin with minerals (Vitamin D with Minerals oral tablet) 1 Tablet(s), Oral, once a day multivitamin, ( Multivitamins with Vitamin B Complex, Vitamin C, Minerals and L-Methylfolate oral capsule) 1 cap, Oral, once a day Stop Taking the Following Medications: Medication list as of 11-05-16 15:01 Attention: If you have any medications at home that are not on this list, DO NOT take them until youcontact your provider for clarification. Give a copy of your medication list to your primary care provider. Update your medication list any time medications or doses are changed and carry your medication list at all times in case of emergency. Electronically Signed By: MEHNAZ DA SILVA MD Signed On:05-NOV-2016 14:53:06 Additional Information: Source: [facility]unn Document Id: [id number] Miscellaneous - Ivette Albert R.N. - 11/05/2016 2:19 PM CDT Adult Appliance Line Assembler Intake/History Adult Appliance Line Assembler Intake/History Entered On: 11/05/2016 14:23 CDT Performed On: 11/05/2016 14:19 CDT by IVETTE ALBERT remediation consultant Height : 160 cm(Converted to: 5 ft 3 inch(es), 63 inch(es)) Actual Weight : 72.6 kg(Converted to: 160 lb 1 oz) Dosing Weight Clinic : 72.6 kg Clinic BSA : 1.8 Body Mass Index : 28.36 kg/m2 IVETTE ALBERT RN - 11/05/2016 14:53 CDT Chief Complaint : abdominal shooting pains, sometimes painful back Temperature Core : 36.6 DegC(Converted to: 97.9 DegF) Peripheral Pulse Rate : 80 /min Respiratory Rate : 16 /min Heart Rhythm : Regular Systolic Blood Pressure : 110 mmHg Diastolic Blood Pressure : 76 mmHg NIBP Mean : 87 mmHg BP Location : Left upper extremity Blood Pressure Cuff Size : Regular SpO2 : 99 % IVETTE ALBERT RN - 11/05/2016 14:19 CDT General Info Information Given By : Patient Preferred Communication Mode : Verbal Languages : Greek Is Patient Female and 13-50 no hysterectomy : Yes Status : Patient denies Are you ? : Yes IVETTE ALBERT RN - 11/05/2016 14:19 CDT Subjective Pain Symptoms : Yes IVETTE ALBERT RN - 11/05/2016 14:19 CDT Pain Scale Pain Scale Verbal 0-10 : Open IVETTE ALBERT RN - 11/05/2016 14:19 CDT Pain Pain Assessment Grid Pain 1 Location : Abdomen IVETTE ALBERT RN - 11/05/2016 14:19 CDT Dependent Habits Exposure to Tobacco Smoke : Other: never Smoking Status : Never smoker Tobacco 2A : No Tobacco Use/Currently Using : No Tobacco Use/Last 30 Days : No Tobacco Use/Last 12 months : No IVETTE ALBERT RN - 11/05/2016 14:19 CDT [facility] Document Id: [id number]!7 documented in this encounter Plan of Treatment Not on filedocumented as of this encounter Visit Diagnoses Not on filedocumented in this encounter Care Teams Urban Forester Relationship Specialty Start Date End Date Juana Deshpande P.A.-C. PCP - General 10/24/16 03/26/19 documented as of this encounter
--- OUTSIDE RECORDS SUMMARY | 2022-01-23 23:57 | XMS_ITS | Encounter Summary ---
:1985 Author Organization [facility] Address [address] [place] [address] Care Team Providers Name Role Phone Mer Hoang APRN, C.N.P., D.N.P. Primary Care Provider Encounter Details Date Type Department Care Team Description 11/13/2020 Orders Only [facility] Mer Hoang APRN, C.N.P., D.N.P. [address] [place] [phone] (Wo rk) Social History Tobacco Use Types [...] or relatives? How often do you attend mormonism or More than 4 times per year 05/31/2021 yarsani services? Do you belong to any clubs or Yes 05/31/2021 organizations such as mormonism groups, unions, fraternal or athletic groups, or [...] place to sleep or slept in a nursing home (including now)? Sex Assigned at Date Recorded Female 01/23/2021 7:15 AM CDT documented as of this encounter Plan of Treatment Not on filedocumented as of this encounter Visit Diagnoses Not on filedocumented in this encounter Care Teams Vocational Psychologist Relationship Specialty Start Date End Date Mer Hoang APRN, C.N.P., D.N.P. PCP - General 03/27/19 02/26/[address] [place] [phone] documented as of this encounter
--- OUTSIDE RECORDS SUMMARY | 2022-01-23 23:57 | XMS_ITS | Encounter Summary ---
:1985 Author Organization [facility] Address [address] [place] [address] Care Team Providers Name Role Phone Juana Deshpande P.A.-C. Primary Care Provider Encounter Details Date Type Department Care Team Description 11/10/2016 Hospital Encounter HX [facility] ME Ozzie Deshpande P.AClarisa-CClarisa [address] [place] [address] (Wo rk) Social History Tobacco Use Types [...] or relatives? How often do you attend baptist or More than 4 times per year 05/31/2021 sabianism services? Do you belong to any clubs or Yes 05/31/2021 organizations such as baptist groups, unions, fraternal or athletic groups, or [...] Sign Reading Time Taken Comments Blood Pressure 97/67 11/10/2016 9:08 AM CDT Pulse 84 11/10/2016 9:08 AM CDT Temperature - - Respiratory Rate 16 11/10/2016 9:08 AM CDT Oxygen Saturation - - Inhaled Oxygen Concentration - - Weight 72 kg (158 lb 11.7 oz) 11/10/2016 9:08 AM CDT Height 158 cm (5' 2.21) 11/10/2016 9:08 AM CDT Body Mass Index 28.84 11/10/2016 9:08 AM CDT documented in this encounter Medications at [...] mouth. tablet documented as of this encounter H&P Notes Juana Cota - 11/10/2016 9:38 AM CDT Clinic Full Note CHIEF COMPLAINT/REASON FOR VISIT Establish care pre op physical Dr. Hernandez Cholecystectomy 11/24/16. In CF. HISTORY OF PRESENT ILLNESS Patient is a 31 year old female who presents today to establish care and for preoperative evaluation. The patient is having a cholecystectomy with Dr. Hernandez on 11/24/16 in [place]. The patient denies any family history or personal history of bleeding or clotting, cardiac history,diabetes, stroke, trouble with anesthesia. Social History The patient just moved from [place], [place] with her and two children, ages 15 months and 7 years. She is currently the 15 month old. 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 She is a non smoker. MEDICATIONS Multivitamins with Vitamin B Complex, Vitamin C, Minerals and L- Methylfolate oral capsule,1 cap(s), PO, Daily Vitamin D with Minerals oral tablet, 1 tab(s), PO, Daily ALLERGIES Monistat 7 PAST MEDICAL HISTORY Chronic Migraine Headache (DIMAS) NOS Historical No historical problems PROCEDURES/SURGICAL HISTORY Pap smear (02/2015), Extraction of wisdom tooth. SOCIAL HISTORY Date Time: 11/10/2016 09:23 Tobacco: Smoking Status: Never smoker Exposure: Other: never Alcohol: Use: Yes Recreational Drugs: Use: None Type: No Results Found FAMILY HISTORY Mother: Negative: Father: Negative: Sister: Negative: Brother:Positive: Diabetes mellitus SYSTEMS REVIEW GENERAL: No weight gain, no weight loss, no fever in past month, no chills, no sweats, no fatigue EENT: No blurred vision, no double vision, no eye pain, no sinus problems, no hoarseness, no mouth sores, no ringing in ears, no enlarged glands PULMONARY: No shortness of breath, no cough, no wheezing, no sputum, no hemoptysis CARDIAC: No chest pain, no chest pressure, no rapid beating, no irregular beating, no dependent edema, pain in calves or with walking, no difficulty moving arms and legs GI: No heartburn, no nausea, no vomiting, no abdominal pain, no constipation, no diarrhea : No burning/pain with urination, no difficulty starting stream, no difficulty emptying bladder, no excessive urination. Last menstrual period was 1 week ago MUSCULOSKELETAL: No joint pain, no joint swelling, no joint stiffness, no muscle pain, no muscle stiffness, no back pain, no back stiffness SKIN: No skin rashes, no skin sores NEURO: No significant headaches, no slurred speech, no seizures, no dizziness, no loss of consciousness, no memory loss ENDOCRINE: No excessive thirst, no excessive bruising VITAL SIGNS T: 36.1 ??C (Core) HR: 84 RR: 16 BP: 97 / 67 SpO2: 98% HT: 158 cm WT: 72 kg BMI: 28.84 PHYSICAL EXAMINATION GENERAL: Patient is in no distress. Capable of full communication without difficulty. Patient is polite and cooperative. Appropriately dressed and normal hygiene. HEENT: Normocephalic. EOMI, PERRL, Canals patent, TMs normal. Oropharynx without lesion of mucosa. Pharyngeal rises symmetrically without exudate. NECK: No nodes, no thyromegaly HEART: Regular rate and rhythm. No murmurs, gallops or rubs noted. LUNGS: Clear to auscultation bilaterally. No expiratory wheeze. No accessory muscles of respirationnoted. ABDOMEN: Nontender to palpation. No hepato-splenomegaly. No mass. Normal bowel sounds in all 4 quadrants. EXTREMITIES: No neurovascular compromise. No cyanosis, clubbing or edema. No abnormal limb length. SKIN: No atypical moles or skin changes NEURO: Alert and oriented x3, nonfocal, moving all 4 extremities PSYCH: Affect is appropriate IMPRESSION/REPORT/PLAN 1. Preoperative Exam NOS Patient is deemed to be medically optimized for planned surgical procedure and low risk for a perioperative cardiac event. Patient is capable of climbing a flight of stairs without unusual dyspnea or chest pain. No additional cardiac testing is needed. STARR score: 0 2. Gallstone NOS Cholecystectomy scheduled for the end of the month. Electronically Signed By: JUANA COTA PA-C On: 11/11/2016 02:30 PM Source: [facility] POWERCHART Document Id: [id number] documented in this encounter Miscellaneous Notes Miscellaneous - Juana Cota - 11/10/2016 11:46 AM CDT Please call patient Document Contains Addenda Addendum by WILFRID MEDRANO LPN on November 10, 2016 13:40:19 CDT Gretchen Herring Addendum by WILFRID MEDRANO LPN on November 10, 2016 13:06:01 CDT Patient is looking up the information and will return call From: JUANA COTA PA-C To: JOLEEN Family Medicine Nurse Hoang; Sent: 11/10/2016 11:46:32 CDT Subject: Please call patient Please see what clinic patient was previously being seen at so we can complete the KIMMY form. Source: [facility] [employer] Document Id: [id number] Miscellaneous - Wilfrid Medrano L.P.N. - 11/10/2016 9:23 AM CDT Health Assessment Health Assessment Entered On: 11/10/2016 9:23 CDT Performed On: 11/10/2016 9:23 CDT by WILFRID MEDRANO LPN Health Assessment Complete Health Assessment Complete or Modified : Annual Health Assessment Annual Health Assessment Completed : Yes WILFRID MEDRANO LPN - 11/10/2016 9:23 CDT Nutrition Nutrition Risk Factors by History Adult : None WILFRID MEDRANO LPN - 11/10/2016 9:23 CDT Functional Current Daily Living Assistance : None WILFRID MEDRANO LPN - 11/10/2016 9:23 CDT Dependent Habits Exposure to Tobacco Smoke : Other: never Smoking Status : Never smoker Tobacco 2A : No Tobacco Use/Currently Using : No Tobacco Use/Last 30 Days : No Tobacco Use/Last 12 months : No Alcohol Use : Yes WILFRID MEDRANO LPN - 11/10/2016 9:23 CDT Caffeine Use Grid Caffeine Use : Current Type : Coffee Frequency : Daily WILFRID MEDRANO LPN - 11/10/2016 9:23 CDT Recreational Drug Use Grid Drug Use : None WILFRID MEDRANO LPN - 11/10/2016 9:23 CDT Psychosocial Domestic Abuse Concerns : None Behavioral Health Screen/Safety Assmt : No Latter Day Preference : No qualifying data available. WILFRID MEDRANO LPN - 11/10/2016 9:23 CDT Advance Directive Advanced Directives : No Advance Directive Additional Information : No WILFRID MEDRANO LPN - 11/10/2016 9:23 CDT Educ Needs Learning Style Preference Adult Grid Patient : Demonstration, Printed materials, Verbal explanation, Video/Educational TV Family : None WILFRID MEDRANO LPN - 11/10/2016 9:23 CDT Source: [employer] Document Id: [id number] CDT!35 [place] - Wilfrid Medrano L.PClarisaNClarisa - 11/10/2016 9:19 AM CDT Obstructive Sleep Apnea Obstructive Sleep Apnea Entered On: 11/10/2016 9:20 CDT Performed On: 11/10/2016 9:19 CDT by WILFRID MEDRANO LPN STARR Screening Known Obstructive Sleep Apnea : No - NOT diagnosed with STARR STARR Score : No qualifying data available. STARR Results : No qualifying data available. WILFRID MEDRANO LPN - 11/10/2016 9:19 CDT STARR Assessment Do you have high blood pressure or have you been told to take medication for high blood pressure? 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 Hernandez Cholectectomy 11/24/16. In CF. Temperature Core : 36.1 DegC(Converted to: 97.0 DegF) (LOW) Peripheral Pulse Rate : 84 /min Respiratory Rate : 16 /min Heart Rhythm : Regular Systolic Blood Pressure : 97 mmHg Diastolic Blood Pressure : 67 mmHg NIBP Mean : 77 mmHg BP Location : Left upper extremity Blood Pressure Cuff Size : Large SpO2 : 98 % Oxygen Therapy : Room air Height : 158 cm(Converted to: 5 ft 2 inch(es), 62 inch(es)) Actual Weight : 72 kg(Converted to: 158 lb 12 oz) Weight Source : Standing scale Dosing Weight Clinic : 72 kg Clinic BSA : 1.78 Body Mass Index : 28.84 kg/m2 Neck Circumference : 31.5 cm(Converted to: 12 inch(es)) WILFRID MEDRANO LPN - 11/10/2016 9:08 CDT General Info Languages : Greek Is Patient Female and 13-50 no hysterectomy : Yes Status : Patient denies Are you ? : Yes WILFRID MEDRANO LPN - 11/10/2016 9:08 CDT Subjective Pain Symptoms : No WILFRID MEDRANO LPN - 11/10/2016 9:08 CDT Dependent Habits Exposure to Tobacco Smoke : Other: never Smoking Status : Never smoker Tobacco 2A : No Tobacco Use/Currently Using : No Tobacco Use/Last 30 Days : No Tobacco Use/Last 12 months : No Alcohol Use : Yes WILFRID MEDRANO LPN - 11/10/2016 9:08 CDT Caffeine Use Grid Caffeine Use : Current Type : Coffee Frequency : Daily WILFRID MEDRANO LPN - 11/10/2016 9:08 CDT Recreational Drug Use Grid Drug Use : None WILFRID MEDRANO LPN 11/10/2016 9:08 CDT Source: [facility] Document Id: [id number] CDT!44 documented in this encounter Plan of Treatment Not on filedocumented as of this encounter Visit Diagnoses Not on filedocumented in this encounter Care Teams 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 PCP - General 10/24/16 03/26/19 documented as of this encounter
--- OUTSIDE RECORDS SUMMARY | 2022-01-23 23:57 | XMS_ITS | Encounter Summary ---
:1985 Author Organization [facility] Address [address] [place] [id number] Care Team Providers Name Role Phone Mer Hoang APRN C.N.PClarisa, D.N.P. Primary Care Provider Reason for Referral Outpatient (Routine) - Closed Specialty Diagnoses / Procedures Referred By Contact Refer red To Contact Family Medicine Therese Lock P.A.-C., [facility] [address] [place] [phone] Referral ID Status Reason Start Date Expiration Date Visits Requ ested Visits Authorized [id number] Closed 01/23/2021 01/23/2022 1 1 Scheduling Instructions 30 min visit Outpatient (Routine) - Closed Specialty Diagnoses / Procedures Referred By Contact Refer red To Contact Neurology Diagnoses Migraine Headache Therese Lock P.A.-C., [facility] [address] [place] [phone] Referral ID Status Reason Start Date Expiration Date Visits Requ ested Visits Authorized [id number] Closed 01/23/2021 01/23/2022 1 1 Reason for Visit Reason Comments Migraine has had for the past month, heart hurts, headache never goes away worried that could be diabetes, 3 we eks of ER visit with different medications Annual Exam due to migraine worried coul d be other reasons for headaches, possible yeast infection from antibio tcts Appointment Request (Routine) - Closed Specialty Diagnoses / Procedures Referred By Contact Refer red To Contact Family Medicine Referral ID Status Reason Start Date Expiration Date Visits Requ ested Visits Authorized [id number] Closed 01/23/2021 01/23/2022 1 1 Encounter Details Date Type Department Care Team Description 01/23/2021 Comprehensive Visit Department of Therese Lock Headache (Primary Dx); Family Medicine, Juan David KinneyAMike, Screening E xamination Diabetes Mellitus; Rosanky P.AClarisa Vulvovaginitis [facility], in [address] [phone] Social History Tobacco Use Types Packs/Day Years Used Date Smoking Tobacco: Never Smokeless Tobacco: Never Tobacco Cessation: Counseling Given: No Alcohol Habits Answer Date Recorded How often [...] or relatives? How often do you attend synagogue or More than 4 times per year 05/31/2021 pentecostal services? Do you belong to any clubs or Yes 05/31/2021 organizations such as synagogue groups, unions, fraternal or athletic groups, or [...] slept in a senior living (including now)? Sex Assigned at Date Recorded Female 01/23/2021 7:15 AM CDT documented as of this encounter Last Filed Vital Signs Vital Sign Reading Time Taken Comments Blood Pressure 117/81 01/23/2021 9:53 AM CDT Pulse - - Temperature 36.4 ??C (97.5 ??F) 01/23/2021 9:53 AM CDT Respiratory Rate - - Oxygen Saturation 99% 01/23/2021 9:53 AM CDT Inhaled Oxygen Concentration - - Weight 79.2 kg (174 lb 9.7 oz) 01/23/2021 9:53 AM CDT Height 157 cm (5' 1.81) 01/23/2021 9:53 AM CDT Body Mass Index 32.13 01/23/2021 9:53 AM CDT documented in this encounter Patient Instructions Patient InstructionsTherese Lock P.A.-C., P.A. - 01/23/2021 10:00 AM CDT Set up patient portal Start topamax daily at bedtime 25mg daily for 1 week, then increase to 50mg (2 tabs) Schedule with neurology Followup in one month documented in this encounter Progress Notes Therese Lock P.A.-C., P.A. - 01/23/2021 10:00 AM CDT SUBJECTIVE CHIEF COMPLAINT/REASON FOR VISIT Noa Franco is a 35 y.o. female who presents for evaluation of Migraine (has had for the past month, heart hurts, headache never goes away worried that could be diabetes, 3 weeks of ER visit with different medications) and Annual Exam (due to migraine worried could be other reasons for headaches, possible yeast infection from antibiotcts). HISTORY OF PRESENT ILLNESS Noa is a pleasant 35-year-old female who presents today for she states she has had migraines since she was a teenager but over the past 6 weeks, her headaches have become much more frequent and bothersome. She has been following at an outside neurology clinic and was diagnosed with migraines. She has had normal imaging. She previously has tried tripped hands and Excedrin for abortive therapy. This initially worked very well but now is not as effective as it used to be. She also has tried gabapentin for prophylactic therapy but found she had new anginal symptoms with this. Since November, she has had a headache almost every day. She has been taking Excedrin every morning and tripped hands up to twice per day. She states that the headache is consistent since 12 of January without any relief. She describes her pain as being a 2 or 3/10 today, but at times will become assevere as an 8/10. She occasionally has photophobia, nausea and sometimes this will prohibit her from getting her work done. She describes the headache as being primarily behind her eyes. Her headaches use to be in her neck and wrapped around the top of her head. She also mentions that she does have two infected teeth and did just have a root canal on Thursday andjennifer has another 1 tomorrow. She has been on antibiotics for this with amoxicillin. Unfortunately, while on the antibiotic she has also developed a vulvovaginal candidiasis. She is requesting fluconazole today for this. At this point, Noa is overall very frustrated with her headaches. She states that this is becoming bothersome and a day-to-day basis and will sometimes even wake her from her sleep. She is interested in a 2nd opinion if possible and would be open to trying Botox. She has already called her insurance and states that she does qualify for this. She is also open to trying an additional prophylactic medication while she awaits a 2nd opinion. PHYSICAL EXAMINATION Vital Signs: BP 117/81 (BP Location: Left arm, Patient Position: Sitting, Cuff Size: Regular) Temp36.4 ??C (Temporal) Ht 157 cm Wt 79.2 kg SpO2 99% BMI 32.13 kg/m?? Body mass index is 32.13 kg/m??. General: This patient is alert and in no acute distress. Musculoskeletal: Grossly intact, no deformities are noted. Skin: Normal color, temperature and moisture, no rashes or lesions are noted. Neuro: CN II-XII grossly intact. Psych: Behavior, mood, affect, cognition and insight are all appropriate. ASSESSMENT / PLAN 1. Migraine Headache Patient with of migraines from an outside neurology clinic. Second opinion ordered today for referral to [facility]. Basic labs obtained today with no overt abnormalities. Recommended starting a new prophylactic migraine treatment with Topamax. Start with 25 mg at bedtime for 1 week then increase to 50 mg thereafter. We will hopefully have more clarity once she gets her 2nd root canal fixed as well. Follow-up in clinic in 1 month for a check-in. She also has an outside follow-up with her neurologist on 02/06. - Neurology - Headache consult (clinic); Future - CBC with Differential, Blood; Future - Hemoglobin A1c; Future 2. Screening Examination Diabetes Mellitus Hemoglobin A1c returned as normal today. No history of gestational diabetes. 3. Vulvovaginitis [facility] Fluconazole prescribed. Follow-up if symptoms not improving. Patient was instructed to follow up in [...] expressed understanding of the content. Total time: 35 minutes Therese Lock P.A.-C., P.A. documented in this encounter Plan of Treatment Scheduled Referrals Name Type Priority [facility] Referral Routine Migraine Headache Exp ected: Headache consult 01/23/2021 (clinic) (Approximate), Expires: 01/24/2024 Family Medicine Outpatient Referral Routine Expec sravanthi: office visit 02/22/2021 (clinic) (Approximate), Expires: 01/24/2024 documented as of this encounter Procedures Procedure Name Priority Date/Time Associated Comments Diagnosis CBC WITH Routine 01/23/2021 10:50 AM Migraine Headache Res ults for this DIFFERENTIAL, B CDT procedure ar e in the results section. HEMOGLOBIN A1C, B Routine 01/23/2021 10:50 AM Migraine Headach e Results for this CDT procedure are i n the results section. documented in this encounter Results Hemoglobin A1c (01/23/2021 10:50 AM CDT) P athologist Signature Hemoglobin A1c, 5.5 4.2 - 5.6 01/23/2021 CNFL B % 11:14 AM CDT Specimen Anatomical Collection Method Collection Time Receive d Time (Source) Location / / Volume Laterality Blood (Blood, 01/23/2021 10:50 01/23/2021 Venous) AM CDT 10:56 AM CDT Therese Lock P.A.-C., PLigia LAB BLOOD ADD-ON Performing Organization Address City/State/ZIP Code Phon e Number [facility]- [address] [place] [id number] [facility] [address] [address] (ABNORMAL) CBC with Differential, Blood (01/23/2021 10:50 AM CDT) Patholo gist Method Time Signature Hemoglobin 13.8 11.6 - 01/23/2021 CNFL 15.0 g/dL 11:06 AM CDT Hematocrit 40.3 35.5 - 01/23/2021 CN[facility] 44.9 % 11:06 AM CDT Erythrocytes 4.64 3.92 - 01/23/2021 CNFL 5.13 11:06 AM CDT x10(12)/L MCV 86.9 78.2 - 01/23/2021 CNFL 97.9 fL 11:06 AM CDT RBC Distrib Width 12.5 12.2 - 01/23/2021 CNFL 16.1 % 11:06 AM CDT Platelet Count 374 (H) 157 - 371 01/23/2021 CNFL x10(9)/L 11:06 AM CDT Leukocytes 6.7 3.4 - 9.6 01/23/2021 CNFL x10(9)/L 11:06 AM CDT Neutrophils 3.59 1.56 - 01/23/2021 CNFL 6.45 11:06 AM CDT x10(9)/L Lymphocytes 2.24 0.95 - 01/23/2021 CNFL 3.07 11:06 AM CDT x10(9)/L Monocytes 0.81 0.26 - 01/23/2021 CNFL 0.81 11:06 AM CDT x10(9)/L Eosinophils 0.04 0.03 - 01/23/2021 CNFL 0.48 11:06 AM CDT x10(9)/L Basophils 0.03 0.01 - 01/23/2021 CNFL 0.08 11:06 AM CDT x10(9)/L Specimen Anatomical Collection Method Collection Time Receive d Time (Source) Location / / Volume Laterality Blood (Blood, 01/23/2021 10:50 01/23/2021 Venous) AM CDT 10:56 AM CDT Therese Lock P.A.-C., P.A. 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 PCP - General 03/27/19 02/26/[address] [place] [phone] documented as of this encounter
--- OUTSIDE RECORDS SUMMARY | 2022-01-23 23:57 | XMS_ITS | Encounter Summary ---
:1985 Author Organization [facility] Address [address] [place] [address] Care Team Providers Name Role Phone Juana Deshpande P.A.-C. Primary Care Provider [phone] Encounter Details Date Type Department Care Team Description 12/05/2016 Hospital Encounter HX [facility] [place] [facility] Adonis Amor PLigia-Yeimi., P.A. [address] [place] [phone] (Wo rk) Social History Tobacco Use Types [...] or relatives? How often do you attend nondenominational or More than 4 times per year 05/31/2021 rastafarian services? Do you belong to any clubs or Yes 05/31/2021 organizations such as nondenominational groups, unions, fraternal or athletic groups, or [...] place to sleep or slept in a alf (including now)? Sex Assigned at Date Recorded [...] documented as of this encounter Progress Notes Rudy Rousseau M.D. - 12/06/2016 8:00 AM CDT Free Text Note Patient called back from triage line. She had two episodes of back and shoulder pain which she relates to two doses of oral clindamycin. No other associated symptoms. Wounds look the same as clinic visit yesterday. I recommended she discontinue the clindamycin and come to Surgical Clinic Thursday if she things the wounds look worse. Otherwise she can keep scheduled follow-up next Thursday. Electronically Signed By: RUDY ROUSSEAU MD On: 12/06/2016 04:11 PM Source: [facility] POWERCHART Document Id: [id number] Amanda Amor P.A.-C. - 12/05/2016 9:21 AM CDT [id number] HISTORY OF PRESENT ILLNESS Noa is a very pleasant 31-year-old female who presents today status postoperative laparoscopic cholecystectomy performed by Dr. Hernandez on November 24, 2016. She presents today at the request of our triage department regarding wound concerns and is currently postoperative day #11. Of note, Noa mentions she has overall been doing and feeling reasonably well since the time of her surgery. She ultimately denies any pain related symptoms today. She only required the oxycodone pain medications for the first 2 days after surgery. She has been utilizing ibuprofen or Tylenol as needed since that time. She mentions to me today that she was ultimately able to stop that medication on Thursday, November 29, 2016, on postoperative day #6, but with the concerns about the wounds she had to pick this up again Thursday this week December 03, 2016. She mentions that she has been eating a light diet with bland foods and she has been feeling a bit more sick and gassy as well as bloated since the time of surgery but she denies any nausea or vomiting. She mentions her bowel movements are regular and normal for her. She denies constipation or diarrhea. She mentions that 1 of her incisions are particularly sore and painful enough to wake her at this present time and 1 is oozing some drainage. She otherwise denies fevers, chills. No chest pain, shortness of breath. No peripheral edema of lower legs. She is performing her activities of daily living without complication and is mindful of lifting restrictions of no morethan 20 pounds for 2 weeks' time. She denies dysuria, frequency and urgency. She otherwise does not bring forth any other complaints or concerns today. PHYSICAL EXAMINATION VITAL SIGNS: Temperature 36.7, heart rate 89, blood pressure 110/69. GENERAL: Awake, alert, oriented in no acute distress. Sitting comfortably in examination room. Well-developed, well-nourished adult female. HEENT: Head atraumatic, normocephalic. Symmetrical facial features. Sclerae nonicteric. RESPIRATORY: Normal respiratory effort. Regular rate and rhythm of respirations. CARDIOVASCULAR: Heart regular rate and rhythm. Normal S1, S2. No murmurs, rubs, or gallops appreciated. ABDOMEN: Soft, nondistended. Some mild and appropriate incisional tenderness to palpation. No rebound tenderness. No guarding. No masses or organomegaly appreciated. No hernias appreciated. No pain upon palpation in the right upper quadrant. SKIN: Warm and dry. No jaundice. Incisions are noted today and at the umbilicus there is some erythema extending approximately 1.5 cm around the umbilical incision. There is no purulent drainage from this site. Some scant serosanguineous drainage is noted. The erythema appears to be more related to likely contact dermatitis or irritation, but not necessarily obvious for evidence of infection. No fluctuance appreciated. No induration appreciated. Two of the port sites in the upper mid to right quadrants are healing appropriately without erythema, induration, drainage, bleeding, or warmth. No evidence of dehiscence. In the right lateral port site there is some erythema extending 1 cm around area with some scant induration and what appears to be a suture granuloma formed at the site. The suture is visualized and is able to be removed today without complication and the wound is left open to drain. PSYCHIATRIC: Normal affect. Pleasant and cooperative. DIAGNOSTICS I reviewed this patient's laboratory and diagnostic results. Of note, the surgical pathology returned on the cholecystectomy specimen shows chronic cholecystitis with cholelithiasis. These pathology results are reviewed with the patient today. IMPRESSION/REPORT/PLAN A 31-year-old female status postoperative laparoscopic cholecystectomy, stable postoperative day #11, with a suture granuloma at the right lateral port site and some erythema without gross evidence of infection at the umbilicus. No obvious signs of un-drained infection. PLAN: Today I discussed with Noa that overall I am encouraged by her progress at this time. Other than the wounds and incisions, I am happy she is not having any significant postoperative pain, that she has been able to advance her diet as tolerated. She is having some kind of bloating feelings but I suspect that will continue to improve over the course of time. Certainly happy that she is havinga regular bowel movement. I feel her increased soreness in the past couple days is most likely related to the wounds and to difficult and delayed healing at this point. I did remove the suture that wascausing the suture granuloma in the right lateral port site and I discussed with Noa that she should cleanse this wound on a daily basis and apply dry clean gauze dressing to collect any drainage. In regard to the umbilicus, there is some erythema noted. I have concerns about possible infection developing at this area and I did make the decision today to place her on a course of clindamycin. I do not see any signs of un-drained infection. At this time she will follow up with Dr. Hernandez in [place] on December 10, 2016, for an additional postoperative appointment. We did review the results of the surgical pathology, as noted above. We discussed concerning signs and symptoms that should prompt Noa to return to surgery clinic such as advancing erythema around the wounds, purulent drainage, fevers, chills, vomiting, worsening right upper quadrant pain, change in bowel movements or urination. She stated understanding and was acceptable and agreeable to the plan. Amanda Amor P.A.-C./nancy cc: Dwight Hernandez M.D. [address] [place] [address] Electronically Signed By: AMANDA AMOR PA-C On: 12/19/2016 08:43 AM Source: [facility] [id number] Document Id: [id number] documented in this encounter Nursing Notes Amanda Amor P.A.-C. - 12/05/2016 10:02 AM CDT Ambulatory Patient Education The following Patient Education Materials have been given to the patient: Patient Education Materials: ED/Trauma Incision Care General Surgery After Gallbladder Surgery ED/Trauma Incision Care Remember: Follow-up visits allow your doctor to make sure your incision is healing well. Be sure to keep your appointments. Sutures (stitches), surgical anita, adhesive tapes,or surgical glue may be used to close incisions. They also help stop bleeding and speed healing. Instead of sutures, your wound may have been closedwith special strips of tape called Steri-Strips. Treat these the same way you would sutures. To helpyour incision heal, follow the tips on this handout. Care for Steri-Strips the way you would sutures. Keeping Your Incision Clean and Dry ?? Avoid doing things that could cause dirt or sweat to get on your incision. ?? Dont pick at scabs. They help protect the wound. ?? Keep your incision out of water. Bathe or shower only as directed. ?? To keep the wound dry when around water, cover it with a plastic bag or plastic wrap. You could also use rubber gloves to protect sutures on a hand. ?? If sutures get damp, pat them dry. Wash your hands before changing a dressing. Changing Your Dressing Leave the dressing (bandage) in place until you are told to remove it or change it. Change it only as directed, using clean hands. ?? After the first 48 hours the incision wound will have closed.At this point, leave the incision uncovered and open to the air. ?? Cover your incision only if your clothing is rubbing it or causing irritation. ?? Change your dressing if it gets wet or soiled. Call Your Health Care Provider If You Notice Any of These Signs: The wound opens spontaneously Increased soreness, pain, or tenderness after 24 hours A red streak, increased redness, or puffiness near the wound White, yellowish, or bad- smelling discharge from the wound Bleeding that cant be stopped byapplying pressure Steri-Strips fall off or stitches dissolve before the wound heals Fever above 101.0??F (38.3??C) ?? [id number] [facility], [address] [place] [address], [place] [address]. All rights reserved. This information is not intended as a substitute for professional medical care. Always follow your healthcare professional's instructions. General Surgery After Gallbladder Surgery You can usually go home the same day as your surgery. In some cases, you may need to stay overnight.Once youre at home, be sure to follow all your doctors instructions. In the Hospital Bandages will cover your incisions and you may have special boots on your legs to prevent blood clots. To aid recovery, youll be asked to get up and move as soon as possible. You may also be asked to use a device that helps keep your lungs clear. At Home You can get back to your normal routine as soon as you feel able. To speed healing: ?? Take any prescribed pain medications as directed. ?? Follow your doctors instructions about bathing and caring for your incisions. ?? Walk and move around as often as possible. ?? Ask your doctor about driving and going back to work. This is often about 5- 10 days after surgery. Eating Normally Again Removing the gallbladder doesnt mean you have to be on a special diet. But you may want to start with light meals. It can also take a few weeks for your digestion to adjust. You may have indigestion, loose stools, or diarrhea. This is normal and should go away in time. Following Up Keep follow-up appointments during your recovery. These allow your doctor to check your progress andanswer any questions. Be sure to mention if you have any new symptoms. Also mention if you have diarrhea that doesnt go away. Call your doctor if you have any of the following: Fever over 101??F or chills Increasing pain, redness, or drainage at an incision site Vomiting or nausea that lasts more than 12 hours Prolonged diarrhea ?? 2901-1533 [facility], [address] [place] [address], [place] [address]. All rights reserved. This information is not intended as a substitute for professional medical care. Always follow your healthcare professional's instructions. This document has images extracted. Please consider using [employer] for all your patient education needs. Source: [facility] POWERCHART Document Id: [id number] documented in this encounter Miscellaneous Notes Miscellaneous - Amanda Amor P.A.-C. - 12/05/2016 10:02 AM CDT Ambulatory Patient Summary [place] - [address] [place], [place] [id number] Visit Information Name: NOA FRANCO [facility] Number: [id number] Current Date: 12/05/2016 10:02:24 Physicians Attending Provider: AMANDA AMOR PA-C Primary Care Provider: JUANA COTA PA-C NOA [...] Take Indications/Special Instructions/Comments/Notes for Patient Medication Changes/Routing clindamycin (clindamycin 300 mg oral capsule) 1 cap, Oral, every 6 hours x 7 day(s) New Routed to [facility] [address] [id number] multivitamin with minerals (Vitamin D with Minerals oral tablet) 1 Tablet(s), Oral, once a day multivitamin, ( Multivitamins with Vitamin B Complex, Vitamin C, Minerals and L-Methylfolate oral capsule) 1 cap, Oral, once a day Stop Taking the Following Medications: Medication list as of 12-05-16 10:02 Attention: If you have any medications at home that are not on this list, DO NOT take them until youcontact your provider for clarification. Give a copy of your medication list to your primary care provider. Update your medication list any time medications or doses are changed and carry your medication list at all times in case of emergency. Electronically Signed By: AMANDA AMOR PA-C Signed On:05-DEC-2016 10:01:51 Your Allergies & Intolerances Substance Reaction Symptoms Category Comments Monistat 7 Drug Your Problem List Problem Status Onset Comments Migraine Headache (DIMAS) NOS Active 11/10/16 per external records Gallstone NOS Active Your Upcoming Appointments Date Time Location Provider 12/10/2016 15:15 [facility] Mary SHERMAN, Dwight Cummings Attention: Contact your local Clinic if further appointment detail needed. Incision Care Remember: Follow-up visits allow your doctor to make sure your incision is healing well. Be sure to keep your appointments. Sutures (stitches), surgical anita, adhesive tapes,or surgical glue may be used to close incisions. They also help stop bleeding and speed healing. Instead of sutures, your wound may have been closedwith special strips of tape called Steri-Strips. Treat these the same way you would sutures. To helpyour incision heal, follow the tips on this handout. Care for Steri-Strips the way you would sutures. Keeping Your Incision Clean and Dry ?? Avoid doing things that could cause dirt or sweat to get on your incision. ?? Dont pick at scabs. They help protect the wound. ?? Keep your incision out of water. Bathe or shower only as directed. ?? To keep the wound dry when around water, cover it with a plastic bag or plastic wrap. You could also use rubber gloves to protect sutures on a hand. ?? If sutures get damp, pat them dry. Wash your hands before changing a dressing. Changing Your Dressing Leave the dressing (bandage) in place until you are told to remove it or change it. Change it only as directed, using clean hands. ?? After the first 48 hours the incision wound will have closed.At this point, leave the incision uncovered and open to the air. ?? Cover your incision only if your clothing is rubbing it or causing irritation. ?? Change your dressing if it gets wet or soiled. Call Your Health Care Provider If You Notice Any of These Signs: The wound opens spontaneously Increased soreness, pain, or tenderness after 24 hours A red streak, increased redness, or puffiness near the wound White, yellowish, or bad- smelling discharge from the wound Bleeding that cant be stopped byapplying pressure Steri-Strips fall off or stitches dissolve before the wound heals Fever above 101.0?F (38.3?C) ?? 5180-6081 [facility], [address] [place] [address], [place] [address]. All rights reserved. This information is not intended as a substitute for professional medical care. Always follow your healthcare professional's instructions. After Gallbladder Surgery You can usually go home the same day as your surgery. In some cases, you may need to stay overnight.Once youre at home, be sure to follow all your doctors instructions. In the Hospital Bandages will cover your incisions and you may have special boots on your legs to prevent blood clots. To aid recovery, youll be asked to get up and move as soon as possible. You may also be asked to use a device that helps keep your lungs clear. At Home You can get back to your normal routine as soon as you feel able. To speed healing: ?? Take any prescribed pain medications as directed. ?? Follow your doctors instructions about bathing and caring for your incisions. ?? Walk and move around as often as possible. ?? Ask your doctor about driving and going back to work. This is often about 5--10 days after surgery. Eating Normally Again Removing the gallbladder doesnt mean you have to be on a special diet. But you may want to start with light meals. It can also take a few weeks for your digestion to adjust. You may have indigestion, loose stools, or diarrhea. This is normal and should go away in time. Following Up Keep follow-up appointments during your recovery. These allow your doctor to check your progress andanswer any questions. Be sure to mention if you have any new symptoms. Also mention if you have diarrhea that doesnt go away. Call your doctor if you have any of the following: Fever over 101?F or chills Increasing pain, redness, or drainage at an incision site Vomiting or nausea that lasts more than 12 hours Prolonged diarrhea ?? 3064-2448 [facility], [address] [place] [address], [place] [address]. All rights reserved. This information is not [...] if you dont have one. Go to Create Your Account. Then, follow the directions to complete the online form. Youll be asked for your [facility] number which you can find at the top of this document. Your Goals/Additional instructions: This document has images extracted. Please consider using [employer] for all your patient education needs. Source: [facility] POWERCHART Document Id: [id number] Miscellaneous - Amanda Amor P.A.-C. - 12/05/2016 10:02 AM CDT Ambulatory Discharge Medication List [employer] [address] [place], [place] [phone] Visit Information Name: NOA FRANCO [facility] Number: [id number] Current Date: 12/05/2016 10:02:23 Attending Provider: AMANDA AMOR PA-C Primary Care Provider: JUANA COTA PA-C NOA FRANCO FRANNY has been given the following list of medications: Your Medications It is important to take your medications as directed. Use a pill box or chart to help remind you to take your medications. Please let your doctor or nurse know if you have problems taking your medications. Medication/Strength How to Take Indications/Special Instructions/Comments/Notes for Patient Medication Changes/Routing clindamycin (clindamycin 300 mg oral capsule) 1 cap, Oral, every 6 hours x 7 day(s) New Routed to [facility] [address] [place] [id number] multivitamin with minerals (Vitamin D with Minerals oral tablet) 1 Tablet(s), Oral, once a day multivitamin, ( Multivitamins with Vitamin B Complex, Vitamin C, Minerals and L-Methylfolate oral capsule) 1 cap, Oral, once a day Stop Taking the Following Medications: Medication list as of 12-05-16 10:02 Attention: If you have any medications at home that are not on this list, DO NOT take them until youcontact your provider for clarification. Give a copy of your medication list to your primary care provider. Update your medication list any time medications or doses are changed and carry your medication list at all times in case of emergency. Electronically Signed By: AMANDA AMOR PA-C Signed On:05-DEC-2016 10:01:51 Additional Information: Source: [facility] POWERCHART Document Id: [id number] Miscellaneous - Mariah Villalpando L.P.N. - 12/05/2016 9:36 AM CDT Adult High Lighter Intake/History Adult High Lighter Intake/History Entered On: 12/05/2016 9:39 CDT Performed On: 12/05/2016 9:36 CDT by MARIAH VILLALPANDO LPN Intake Chief Complaint : po 11-24-16 [facility] [place] check umbilical incision redness also check incision upper right abdomen Temperature Core : 36.3 DegC(Converted to: 97.3 DegF) (LOW) Peripheral Pulse Rate : 83 /min Systolic Blood Pressure : 102 mmHg Diastolic Blood Pressure : 71 mmHg NIBP Mean : 81 mmHg Height : 158 cm(Converted to: 5 ft 2 inch(es), 62 inch(es)) JESSIC[facility]ARIA[facility] NEUROLOGY STROKE PHYSICIAN 12/05/2016 9:36 CDT General Info Information Given By : Patient Languages : Macedonian Is Patient Female and 13-50 no hysterectomy : Yes Status : Patient denies Are you ? : No MARIAH VILLALPANDO NEUROLOGY STROKE PHYSICIAN 12/05/2016 9:36 CDT Subjective Pain Symptoms : Yes MARIAH VILLALPANDO NEUROLOGY STROKE PHYSICIAN 12/05/2016 9:36 CDT Pain Scale Pain Scale Verbal 0-10 : Open MARIAH VILLALPANDO NEUROLOGY STROKE PHYSICIAN 12/05/2016 9:36 CDT Pain Pain Assessment Grid Pain 1 Location : Abdomen Intensity : 6 MARIAH VILLALPANDO NEUROLOGY STROKE PHYSICIAN 12/05/2016 9:36 CDT Dependent Habits Exposure to Tobacco Smoke : Other: never Smoking Status : Never smoker Tobacco 2A : No Tobacco Use/Currently Using : No Tobacco Use/Last 30 Days : No Tobacco Use/Last 12 months : No MARIAH VILLALPANDO NEUROLOGY STROKE PHYSICIAN 12/05/2016 9:36 CDT Caffeine Use Grid Caffeine Use : Current Type : Coffee Frequency : Daily MARIAH VILLALPANDO LPN 12/05/2016 9:36 CDT Recreational Drug Use Grid Drug Use : None MARIAH VILLALPANDO NEUROLOGY STROKE PHYSICIAN 12/05/2016 9:36 CDT Source: [facility] [employer] Document Id: [id number]!39 documented in this encounter Plan of Treatment Not on filedocumented as of this encounter Visit Diagnoses Not on filedocumented in this encounter Care Teams Streetcar [employer] Relationship Specialty Start Date End Date Juana Deshpande P.A.-C. PCP - General 10/24/16 03/26/19 documented as of this encounter
--- OUTSIDE RECORDS SUMMARY | 2022-01-23 23:57 | XMS_ITS | Encounter Summary ---
:1985 Author Organization [facility] Address [address] [place] [address] Care Team Providers Name Role Phone Lissa Deshpande P.A.-C. Primary Care Provider Encounter Details Date Type Department Care Team Description 03/16/2017 Abstract Department of Family Medicine in [place] [address] [address] [place], [place] [phone] Social History Tobacco Use Types Packs/Day Years [...] or relatives? How often do you attend sikh or More than 4 times per year 05/31/2021 temple services? Do you belong to any clubs or Yes 05/31/2021 organizations such as sikh groups, unions, fraternal or athletic groups, or [...] on filedocumented in this encounter Care Teams Shank Paperer Relationship Specialty Start Date End Date Lissa Deshpande P.A.-C. PCP - General 10/24/16 03/26/19 documented as of this encounter
--- OUTSIDE RECORDS SUMMARY | 2022-01-23 23:57 | XMS_ITS | Encounter Summary ---
:1985 Author Organization [facility] Address [address] [place] [address] Care Team Providers Name Role Phone Lissa Deshpande P.A.-C. Primary Care Provider Reason for Visit Reason Comments Wound Check umbilicus Outpatient (Routine) - Closed Specialty Diagnoses / Procedures Referred By Contact Refer red To Contact General Surgery Luke Rosas DTania [facility] [address] [place] [address] Referral ID Status Reason Start Date Expiration Date Visits Requ ested Visits Authorized [id number] Closed 06/17/2017 12/14/2017 1 1 Encounter Details Date Type Department Care Team Description 06/24/2017 Office Visit Department of General Luke Rosas In [facility] Stitch Surgery in Vinicius Hernandez, DTania [facility] [place] [address] Subsequent (Primary Dx) [address] [place] [address] [place], [place] [phone] (Work) [phone] Social History Tobacco Use Types Packs/Day Years [...] More than 4 times per year 05/31/2021 uatsdin services? Do you belong to any clubs or Yes 05/31/2021 organizations such as hinduism groups, unions, fraNetwork Merchants or athletic groups, or school groups? How [...] slept in a long term (including now)? Sex Assigned at Date Recorded Female 01/23/2021 7:15 AM CDT documented as of this encounter Last Filed Vital Signs Vital Sign Reading Time Taken Comments Blood Pressure 108/67 06/24/2017 10:14 AM DIRECTOR RELIGIOUS EDUCATION Pulse 82 06/24/2017 10:14 AM DIRECTOR RELIGIOUS EDUCATION Temperature 36.5 ??C (97.7 ??F) 06/24/2017 10:14 AM DIRECTOR RELIGIOUS EDUCATION Respiratory Rate - - Oxygen Saturation - - Inhaled Oxygen Concentration - - Weight - - Height - - Body Mass Index - - documented in this encounter Progress Notes Luke Rosas D.O. - 06/24/2017 12:00 AM CST SUBJECTIVE CHIEF COMPLAINT/REASON FOR VISIT Ms. Franco is seen today in followup from her incision and drainage of an infraumbilical wound. Sheis doing well and has no complaints. OBJECTIVE PHYSICAL EXAMINATION The wound is healing nicely. It is about a third the size it was originally. There is good granulation tissue. There is no exudate or bleeding. There is no surrounding erythema or cellulitis. ASSESSMENT / PLAN At this point, I think we can suspend with packings and just treat it with local wound care using bacitracin and a sterile dressing. She is instructed to return to the clinic if there are any concerns about the healing process. Job ID: [id number] CTOR RELIGIOUS EDUCATION documented in this encounter Plan of Treatment Not on filedocumented as of this encounter Visit Diagnoses Diagnosis Infection Stitch Postoperative Subsequen t - Primary documented in this encounter Care Teams Muffler Hand Relationship Specialty Start Date End Date Lissa Deshpande P.A.-C. PCP - General 10/24/16 03/26/19 documented as of this encounter
--- OUTSIDE RECORDS SUMMARY | 2022-01-23 23:57 | XMS_ITS | Encounter Summary ---
:1985 Author Organization [facility] Address [address] [place] [address] Care Team Providers Name Role Phone Lissa Deshpande P.A.-C. Primary Care Provider Encounter Details Date Type Department Care Team Description 06/20/2017 Office Visit Urgent Care in [facility] GennaromaeQuinn [place], [place] Samra, PKevinCClarisa (Primary Dx) [address] [place] [phone] Social History Tobacco Use Types Packs/Day Years [...] or relatives? How often do you attend jehovah's witness or More than 4 times per year 05/31/2021 muslim services? Do you belong to any clubs or Yes 05/31/2021 organizations such as jehovah's witness groups, unions, fraternal or athletic groups, or [...] a [place] [facility] (including now)? Sex Assigned at Date Recorded Female 01/23/2021 7:15 AM CDT documented as of this encounter Last Filed Vital Signs Vital Sign Reading Time Taken Comments Blood Pressure 115/67 06/20/2017 10:53 AM WARP KNIT OPERATOR Pulse 74 06/20/2017 10:53 AM WARP KNIT OPERATOR Temperature 36.5 ??C (97.7 ??F) 06/20/2017 10:53 AM WARP KNIT OPERATOR Respiratory Rate - - Oxygen Saturation 99% 06/20/2017 10:53 AM WARP KNIT OPERATOR Inhaled Oxygen Concentration - - Weight 73.4 kg (161 lb 13.1 oz) 06/20/2017 10:53 AM WARP KNIT OPERATOR Height - - Body Mass Index 29.4 12/10/2016 3:18 PM CDT documented in this encounter Progress Notes Quinn Veronica, Jimmie-Yeimi. - 06/20/2017 11:45 AM CST Re-packing of a 1.5 cm previously saucerized stitch abscess below the umbilicus. She is worried whether she has a cellulitis. Pain 1/10 PHYSICAL EXAMINATION There is no surrounding erythema or tenderness. There is no odor. Packing is removed. She was given sterile plain non-iodoform gauze to repack it with daily until she sees her surgeon next week. I do not think a culture or antibiotics are necessary at this point in time. She may try Bactroban in the future if necessary. I assured her that I think at this point in time, the risk of antibiotics orally just certainly outweighs any benefit and this should scar in on its own slowly over the next couple weeks. She will be seeing her surgeon in follow up. ASSESSMENT / PLAN #1 Management of small stitch abscess crater Supplies given to patient. Recheck.if More Pain Or redness KNIT OPERATOR documented in this encounter Plan of Treatment Not on filedocumented as of this encounter Visit Diagnoses Diagnosis Abscess Abdominal Wall - Primary documented in this encounter Care Teams Motor Assembly Supervisor Relationship Specialty Start Date End Date Lissa Deshpande P.A.-C. PCP - General 10/24/16 03/26/19 documented as of this encounter
--- OUTSIDE RECORDS SUMMARY | 2022-01-23 23:57 | XMS_ITS | Encounter Summary ---
:1985 Author Organization [facility] Address [address] [place] [address] Care Team Providers Name Role Phone Mer Hoang APRN, C.N.P., D.N.P. Primary Care Provider Reason for Visit Reason Comments Advice Only Encounter Details Date Type Department Care Team Description 02/07/2021 Nurse Triage Department of [facility] Jia Matthews A dvice Only Medicine, [facility], in R.N. [place], [place] [address] [place] [address] Social History Tobacco Use Types Packs/Day Years [...] 05/31/2021 organizations such as hindu groups, unions, fraternal or athletic groups, or [...] or slept in a usp (including now)? Sex Assigned at Date Recorded Female 01/23/2021 7:15 AM CDT documented as of this encounter Miscellaneous Notes Telephone Encounter - Jia Matthews R.N. - 02/07/2021 1:31 AM CDT Chief Complaint / Reason for Call Patient is a 35 y.o. female calling regarding Advice Only. Assessment Concern: Unrelieved migraines, exhausted all outpatient treatments Present for: 43 days Home cares tried: All outpatient treatments recommended by neurologist Calling to request: Advice for admit The recommended disposition is Other. documented in this encounter Plan of Treatment Not on filedocumented as of this encounter Visit Diagnoses Not on filedocumented in this encounter Additional Health Concerns Assessment Noted Time PHQ-9 Depression Total Score: 3 01/23/2021 9:58 AM CDT documented as of this encounter Care Teams Podiatric Physician Relationship Specialty Start Date End Date Mer Hoang APRN, C.N.P., D.N.P. PCP - General 03/27/19 02/26/[id number] [phone] documented as of this encounter
--- OUTSIDE RECORDS SUMMARY | 2022-01-23 23:57 | XMS_ITS | Encounter Summary ---
:1985 Author Organization [facility] Address [address] [place] [address] Care Team Providers Name Role Phone Lissa Deshpande P.A.-C. Primary Care Provider Reason for Visit Reason Comments Communication Triage Call - General Surger y Encounter Details Date Type Department Care Team Description 06/18/2017 Clinical Department of [place], Communication Communication General Surgery in Mehreen Mosqueda (Triage Call - [place], [address] General Surg omayra) [address] [phone] Social History Tobacco Use Types Packs/Day Years [...] or relatives? How often do you attend protestant or More than 4 times per year 05/31/2021 presybeterian services? Do you belong to any clubs or Yes 05/31/2021 organizations such as protestant groups, unions, fraternal or athletic groups, or [...] this encounter Miscellaneous Notes Telephone Encounter - Antonella Palomares R.N. - 06/18/2017 1:26 PM CST Patient was informed that her prescription for Tramadol was available. It will be faxed to [facility] per patient's request. ER COMPLIANCE REPRESENTATIVE Telephone Encounter - Antonella Palomares R.N. - 06/18/2017 10:00 AM DEALER COMPLIANCE REPRESENTATIVE Specialty Surgical Services Triage Call Reason for call/visit Pain post procedure Call Note: Assessment Patient called back this morning inquiring about receiving a couple days of pain medication following a procedure with Dr. Rosas yesterday. The patient had an incision and drainage of infraumbilical abscess. She had a laparoscopic cholecystectomy with Dr. Hernandez on 10/27/16. She has been taking Tylenoland Ibuprofen, but reports her pain is still at 8/10. She is following up with General Surgery next week. In the past when she has used Oxycodone she has become very nausea. She prefers not to take that again. Intervention Patient was discussed with Dr. Pringle in the absence of Dr. Rosas and Dr. Hernandez. Message forwarded to Dr. Prignle for review. Thank you! Education provided: patient/caller able to teach back Disposition/Recommendation: provider notified Caller agreeable to plan of care: yes The following individuals participated in today???s interaction: patient Marine Rigger used: no Additional concerns addressed: none ER COMPLIANCE REPRESENTATIVE Telephone Encounter - Hoa Gallegos - 06/18/2017 7:37 AM CST Sergio, Please call patient at [phone]. She is bleeding through her bandage and was wondering if she would change it. She is also in a lot of pain and would like pain meds for a day or two. Please call. Thanks Hoa ER COMPLIANCE REPRESENTATIVE documented in this encounter Plan of Treatment Not on filedocumented as of this encounter Visit Diagnoses Not on filedocumented in this encounter Care Teams Reference Librarian Relationship Specialty Start Date End Date Lissa Deshpande P.A.-C. PCP - General 10/24/16 03/26/19 documented as of this encounter
--- OUTSIDE RECORDS SUMMARY | 2022-01-23 23:57 | XMS_ITS | Encounter Summary ---
:1985 Author Organization [facility] Address [address] [place] [address] Care Team Providers Name Role Phone Lissa Deshpande P.A.-C. Primary Care Provider Encounter Details Date Type Department Care Team Description 07/31/2017 Orders Only Department of Family Lissa Deshpande, Medicine, [facility], in [phone] [place] [address] [place], [place] [address] [phone] Social History Tobacco Use Types Packs/Day Years [...] or slept in a chcf (including now)? Sex Assigned at Date Recorded Female 01/23/2021 7:15 AM CDT documented as of this encounter Plan of Treatment Not on filedocumented as of this encounter Visit Diagnoses Not on filedocumented in this encounter Care Teams Capability Lead Relationship Specialty Start Date End Date Lissa Deshpande P.A.-C. PCP - General 10/24/16 03/26/19 documented as of this encounter
--- OUTSIDE RECORDS SUMMARY | 2022-01-23 23:57 | XMS_ITS | Encounter Summary ---
:1985 Author Organization [facility] Address [address] [place] [address] Care Team Providers Name Role Phone Mer Hoang APRN C.N.P., D.N.P. Primary Care Provider Encounter Details Date Type Department Care Team Description 02/06/2021 Orders Only Department of Infusion Rosita, Migra ine Headache Therapy in Yvan Johnson M.D. (Primary Dx) [address] [phone] Social History Tobacco Use Types Packs/Day Years Used Date Smoking Tobacco: Never Smokeless Tobacco: Never Alcohol Habits Answer Date Recorded How often do you have a drink containing alcohol? Never 05/31/2021 How many drinks containing alcohol do you have on a typical or 4 04/01/2021 day when you are [...] More than 4 times per year 05/31/2021 moravian services? Do you belong to any clubs [...] place to sleep or slept in a halfway (including now)? Sex Assigned at Date Recorded Female 01/23/2021 7:15 AM CDT documented as of this encounter Plan of Treatment Not on filedocumented as of this encounter Visit Diagnoses Diagnosis Migraine Headache - Primary documented in this encounter Additional Health Concerns Assessment Noted Time PHQ-9 Depression Total Score: 3 01/23/2021 9:58 AM CDT documented as of this encounter Care Teams Home Health Care Coordinator Relationship Specialty Start Date End Date Mer Hoang APRN, C.N.P., D.N.P. PCP - General 03/27/19 02/26/[id number] [phone] documented as of this encounter
--- OUTSIDE RECORDS SUMMARY | 2022-01-23 23:57 | XMS_ITS | Encounter Summary ---
:1985 Author Organization [facility] Address [address] [place] [address] Care Team Providers Name Role Phone Lissa Deshpande P.A.-C. Primary Care Provider Encounter Details Date Type Department Care Team Description 01/13/2019 Nurse Triage Department of [facility] Leona Power , Medicine, [facility], R.N in [place], [place] [address] [place] [address] [place] [address] [place] [address] [phone] Social History Tobacco Use Types Packs/Day Years [...] or relatives? How often do you attend worship or More than 4 times per year 05/31/2021 oriental orthodox services? Do you belong to any clubs or Yes 05/31/2021 organizations such as worship groups, unions, fraternal or athletic groups, or [...] or slept in a half-way (including now)? Sex Assigned at Date Recorded Female 01/23/2021 7:15 AM CDT documented as of this encounter Plan of Treatment Not on filedocumented as of this encounter Visit Diagnoses Not on filedocumented in this encounter Care Teams Industrial/Organizational Psychologist Relationship Specialty Start Date End Date Lissa Deshpande P.A.-C. PCP - General 10/24/16 03/26/19 documented as of this encounter
--- OUTSIDE RECORDS SUMMARY | 2022-01-23 23:57 | XMS_ITS | Encounter Summary ---
:1985 Author Organization [facility] Address [address] [place] [address] Care Team Providers Name Role Phone Mer Hoang APRN, C.N.P., D.N.P. Primary Care Provider Reason for Visit Reason Comments Headache Encounter Details Date Type Department Care Team Description 02/06/2021 - 02/07/2021 Emergency [facility] Emergency Department [address] [place], [place] [phone] Social History Tobacco Use Types Packs/Day Years [...] or relatives? How often do you attend orthodox or More than 4 times per year 05/31/2021 adventism services? Do you belong to any clubs or Yes 05/31/2021 organizations such as orthodox groups, unions, fraternal or athletic groups, [...] Sign Reading Time Taken Comments Blood Pressure 119/82 02/06/2021 10:37 PM CDT Pulse 118 02/06/2021 10:37 PM CDT Temperature 36.6 ??C (97.9 ??F) 02/06/2021 10:37 PM CDT Respiratory Rate 18 02/06/2021 10:37 PM CDT Oxygen Saturation 99% 02/06/2021 10:37 PM CDT Inhaled Oxygen Concentration - - Weight 80.2 kg (176 lb 12.9 oz) 02/06/2021 10:34 PM CDT Height 155.2 cm (5' 1.1) 02/06/2021 10:34 PM CDT Body Mass Index 33.3 02/06/2021 10:34 PM CDT documented in this [...] rizatriptan (MAXALT) 10 mg 10 mg. 0 02/28/2021 tablet documented as of this encounter ED Notes Caty Rivsa R.N. - 02/06/2021 10:40 PM CDT Pt has had headaches for the past 30 days, been seen outpatient with her neurologists with no relief. Caty Rivas R.N. 02/06/212240 documented in this encounter Plan of Treatment Not on filedocumented as of this encounter Procedures Procedure Name Priority Date/Time Associated Comments Diagnosis CT HEAD WITHOUT RAD - Emergent 02/06/2021 11:20 Result s for this IV CONTRAST (Fastest; for the PM CDT procedure are in most critically the results ill patients) section. documented in this encounter Results CT Head without IV Contrast (02/06/2021 11:20 PM CDT) Anatomical Region Laterality Modality Head, Neuroradiology RST LOS, N/A Computed T omography, Computed Neuroradiology ARZ LOS, Neuroradiology T omography FLA LOS Specimen (Source) Anatomical Collection Method Collection Time Re ceived Time Location / / Volume Laterality 02/06/2021 11:35 PM CDT Impressions 02/07/2021 7:30 AM CDT No acute intracranial findings. No finding to account for headache. Narrative 02/07/2021 7:30 AM CDT EXAM: CT HEAD WITHOUT IV CONTRAST COMPARISON: None. FINDINGS: No acute intracranial hemorrha ge, mass effect, abnormal extra axial fluid collection, or evidence of infarct ion. No hydrocephalus. Basilar cisterns are patent. ?? Paranasal sinuses and mastoid air cells are well-aerated. The orbits and visualized nasopharynx are negative. Rem erika extracranial soft tissue and osseous structures are negative. ?? Procedure Note Nafisa Dailey M.D. - 02/07/2021Formatt ing of this note might be different from the original. EXAM: CT HEAD WITHOUT IV CONTRAST COMPARISON: None. FINDINGS: No acute intracranial hemorrha ge, mass effect, abnormal extra axial fluid collection, or evidence of infarct ion. No hydrocephalus. Basilar cisterns are patent. Paranasal sinuses and mastoid air cells are well-aerated. The orbits and visualized nasopharynx are negative. Rem erika extracranial soft tissue and osseous structures are negative. IMPRESSION: No acute intracranial findings. No findi ng to account for headache. Michael Burns M.D. IMSantino CT PROCEDURES documented in this encounter Visit Diagnoses Not on filedocumented in this encounter Additional Health Concerns Assessment Noted Time PHQ-9 Depression Total Score: 3 01/23/2021 9:58 AM CDT documented as of this encounter Care Teams Equity Research Associate Relationship Specialty Start Date End Date Mer Hoang APRN, C.N.P., D.N.P. PCP - General 03/27/19 02/26/[address] [place] [phone] documented as of this encounter
--- OUTSIDE RECORDS SUMMARY | 2022-01-23 23:57 | XMS_ITS | Encounter Summary ---
:1985 Author Organization [facility] Address [address] [place] [address] Care Team Providers Name Role Phone Lissa Deshpande P.A.-C. Primary Care Provider Reason for Visit Reason Comments Anxiety presents with c/o anxiety an d nausea after starting prozac yesterday Encounter Details Date Type Department Care Team Description 11/24/2018 Emergency [facility] Emergency Therese Leung Anx iety (Primary Dx) Department P.A.-C., M.S. [address] [place] [address] Dr ORONA [place], [place] [id number] [phone] Social History Tobacco Use Types Packs/Day Years [...] More than 4 times per year 05/31/2021 cheondoism services? Do you belong to any clubs [...] place to sleep or slept in a fdc (including now)? Sex Assigned at Date Recorded Female 01/23/2021 7:15 AM CDT documented as of this encounter Last Filed Vital Signs Vital Sign Reading Time Taken Comments Blood Pressure 111/83 11/24/2018 4:08 AM CDT Pulse 86 11/24/2018 4:08 AM CDT Temperature 36.8 ??C (98.2 ??F) 11/24/2018 4:08 AM CDT Respiratory Rate 16 11/24/2018 4:08 AM CDT Oxygen Saturation 98% 11/24/2018 4:08 AM CDT Inhaled Oxygen Concentration - - Weight 74 kg (163 lb 2.3 oz) 11/24/2018 4:09 AM CDT Height - - Body Mass Index 29.64 12/10/2016 3:18 PM CDT documented in this encounter Discharge Instructions Discharge InstructionsTherese Leung P.A.-C., P.A. - 11/24/2018 5:18 AM CDT Call your obstetrics provider tomorrow and let them know you are in the emergency department tonight. A tell them that I have advised that you stop the 2 medications they had prescribed for anxiety. Try to get into obstetric mental health provider earlier than November 30. AttachmentsThe following attachments cannot be sent through Care Everywhere. Living With Anxiety (Georgian)documented in this encounter Medications at Time of Discharge Medication Sig Dispensed Refills Start Date End Date CHOLECALCIFEROL, VITAMIN Take 1 tablet by 0 11/05 D3, (VITAMIN D3 ORAL) mouth daily. PNV NO.95/FERROUS Take 1 capsule by 0 11/05/2016 FUM/FOLIC AC ( mouth daily. MULTIVITAMINS ORAL) metoclopramide (REGLAN) 10 Take 1 tablet (10 40 tablet 0 12/04/2018 mg tablet mg total) by mouth 4 (four) times a day for 10 days. documented as of this encounter ED Notes Therese Leung P.A.-C., P.A. - 11/24/2018 4:34 AM CDT SUBJECTIVE CHIEF COMPLAINT/REASON FOR VISIT Anxiety (presents with c/o anxiety and nausea after starting prozac yesterday) HISTORY OF PRESENT ILLNESS Ms. Franco is a 33 y.o. female who presents to the emergency department complaining of severe anxiety. She does have underlying mild to moderate anxiety however for the past 2 weeks her emotions have been completely out of control. 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 She is approximately 6 weeks . She has been in contact with her obstetric provider who in turn has been in contact with the obstetric mental health provider. She was initially started on hydroxyzine on 11/18/2018 and started [id number]/19/2018. On November 19, in she had a severe panic attacks which include nausea, heart racing,mind racing, and feeling like she is going crazy. The Zoloft was then stopped. The the she was givena prescription to start on Prozac. She took nothing on Thursday, the 11/20. Thursday she felt a little bit better and then Thursday she had a great day. She has not started back on the Vistaril yesterday shestarted on the Prozac and since she has been on this medication she has felt very anxious again withthe sensation that her heart is racing, and her mind is going crazy. She is wondering if there is anything I can give her for her anxiety instead of the 3 medication she has tried. She is also asking for something for nausea. She would also like us to check her blood sugar. She denies feeling her heart racing at this time. She has not had any shortness of breath, chest pain, or pain anywhere. REVIEW OF SYSTEMS Constitutional: Negative. HENT: Negative. Respiratory: Negative. Negative for chest tightness and shortness of breath. Cardiovascular: Positive for palpitations (Feelings of heart racing and palpitations earlier). Negative for chest pain and leg swelling. Gastrointestinal: Positive for nausea. Skin: Negative. Negative for rash. Psychiatric/Behavioral: Positive for sleep disturbance. The patient is nervous/anxious. OBJECTIVE Initial Vitals [11/24/18 0408] Temperature Pulse Rate Heart Rate Resp Rate Blood Pressure SpO2 36.8 ??C 86 -- 16 111/83 98 % Pain Score -- PHYSICAL EXAMINATION Constitutional: She is cooperative. Patient is alert and oriented, does not appear to be in acute distress HENT: Head: Normocephalic and atraumatic. Nose: Nose normal. Eyes: Conjunctivae and EOM are normal. Neck: Normal range of motion. Cardiovascular: Normal rate, regular rhythm and normal heart sounds. Pulses are strong and palpable. No murmur heard.Capillary refill: takes less than 3 seconds, Heart rate is approximately 78 and regular during exam Pulmonary/Chest: Effort normal. No tachypnea. No respiratory distress. Air movement is not decreased. Musculoskeletal: Normal range of motion. Neurological: She is alert. Skin: Skin is intact. No rash noted. She is not diaphoretic. Psychiatric: Her behavior is normal. Judgment and thought content normal. Her mood appears anxious. Her speech is rapid and/or pressured and tangential. Cognition and memory are normal. Nursing note and vitals reviewed. ASSESSMENT/PLAN Impression and Plan Differential diagnosis includes but is not limited to general anxiety disorder, social phobia, panicattack, depression, substance abuse, hyperthyroidism, graves disease, and adrenal disease. Noa's blood sugar was 95. She was given Reglan 10 mg for her nausea which worked well. She is asking for prescription for this. My recommendation at this time is to hold off on restarting the hydroxyzine and the Prozac. I would like for her to call her white spooler who prescribed the medication in the morning when the office opens. She will let them know that she was seen in the emergency department and I have recommended stopping the medications. She is feeling a bit better and is requesting discharge. Final diagnoses: Anxiety Todays workup and evaluation during this emergency department visit was reviewed with Ms. Salvador warren,every day language. She is comfortable going home based on our discussion and voiced understanding regarding the current situation of the treatment plan moving forward. All questions and concernswere addressed. She is advised to return to the Emergency Department if she worsens, does not improve or develops any new or concerning symptoms. Discharge instructions were given to the patient as well as discussed verbally. ED Course as of Nov 24 529ThuNov 24, 2018 0515 Noa reports the anti nausea medication worked she would like to have a prescription for this. Final Diagnoses: as of Nov 24 529 Anxiety Therese Leung P.A.-C., P.A. 11/24/18 0530 documented in this encounter Plan of Treatment Not on filedocumented as of this encounter Procedures Procedure Name Priority Date/Time Associated Diagnosis Comme nts GLUCOSE POCT, B Routine 11/24/2018 4:39 AM Result s for this CDT procedure are i n the results section. documented in this encounter Results Glucose, POCT (11/24/2018 4:39 AM CDT) P athologist Signature Glucose, POCT, 95 70 - 140 11/24/2018 B mg/dL 4:39 AM CDT Specimen Anatomical Collection Method Collection Time Receive d Time (Source) Location / / Volume Laterality Blood 11/24/2018 4:39 AM 9 2:24 CDT PM CDT Generic [facility] POCT ORDERABLES-MANUAL Performing Organization Address City/State/ZIP Code Phon e Number [facility]- [id number] [place] [id number] [facility] documented in this encounter Visit Diagnoses Diagnosis Anxiety - Primary documented in this encounter Administered Medications Inactive Administered Medications - up to 3 most recent administrations Medication Order MAR Action Action Date Dose Rate Site metoclopramide tablet 10 mg Given 11/24/2018 4:37 AM CDT 10 mg (REGLAN) 10 mg, oral, Once, On Thu11/24/18 at 0433, For 1 dose documented in this encounter Active and Recently Administered Medications Times are shown in CDT. Scheduled Medication Order 11/22/2018 11/23/2018 11/24/2018 metoclopramide tablet 10 mg (REGLAN) (COMPLETED) 0437 (Given - Provider: Lisa Rodriguez R.N.) 10 mg, oral, Once, 11/24/18 at 0433, For 1 dose documented in this encounter Care Teams Game Manager Relationship Specialty Start Date End Date Lissa Deshpande P.A.-C. PCP - General 10/24/16 03/26/19 documented as of this encounter
--- OUTSIDE RECORDS SUMMARY | 2022-01-23 23:57 | XMS_ITS | Encounter Summary ---
:1985 Author Organization [facility] Address [address] [place] [address] Care Team Providers Name Role Phone Lissa Deshpande P.A.-C. Primary Care Provider [phone] Reason for Referral Outpatient (Routine) - Closed Specialty Diagnoses / Procedures Referred By Contact Refer red To Contact General Surgery Luke Rosas D.O. [facility] [address] [phone] Referral ID Status Reason Start Date Expiration Date Visits Requ ested Visits Authorized [id number] Closed 06/17/2017 12/14/2017 1 1 CUTE NURSE Reason for Visit Reason Comments Follow-up previous surgical site incis ion has drainage and discomfort Encounter Details Date Type Department Care Team Description 06/17/2017 Office Visit Department of Robinson Hernandez M.D. [address] [facility] [facility] [address] Granuloma Suture General Surgery in Luke Rosas D.O. [address] [phone] Postoperative Initial [place], [place] (Primary Dx) [address] [place] [address] Social History Tobacco Use Types Packs/Day Years [...] Sign Reading Time Taken Comments Blood Pressure 109/70 06/17/2017 2:16 PM SUBACUTE NURSE Pulse 73 06/17/2017 2:16 PM SUBACUTE NURSE Temperature 36.3 ??C (97.3 ??F) 06/17/2017 2:16 PM SUBACUTE NURSE Respiratory Rate - - Oxygen Saturation - - Inhaled Oxygen Concentration - - Weight - - Height - - Body Mass Index - - documented in this encounter Procedure Notes Luke Rosas D.O. - 06/17/2017 12:00 AM CSTAssociated Order(s): PROCEDURE PRE-OPERATIVE DIAGNOSIS Suture abscess, umbilicus. POST-OPERATIVE DIAGNOSIS Suture abscess, umbilicus. PROCEDURE Incision and drainage of infraumbilical abscess. SURGEON(S) AND ROLE Luke Rosas D.O. ANESTHESIA TYPE Local 1% Xylocaine. COMPLICATIONS None. HISTORY AND GROSS FINDINGS: Ms. Franco is seen today with concerns of an umbilical wound abscess. She had a laparoscopic cholecystectomy performed by Dr. Hernandez on November 24, 2016. She presented on 12/10/2016 with a suture-related abscess in the right upper quadrant. The 2nd right upper quadrant incision also opened and she required incision and drainage and packing. This was identified as a suture granuloma, and she was listed as an allergy to Vicryl suture after the 2nd episode. She states that yesterday she woke up and her umbilical incision was red and angry and started draining some purulent material this morning. Operative findings were that of a small superficial abscess just underneath the skin surface. There was no evidence of extension down to the fascial level. DESCRIPTION OF PROCEDURE Patient taken to the special procedure room and placed in supine position. Her umbilicus area was prepared with chlorhexidine solution and draped in a sterile manner. UNIVERSAL PROTOCOL Procedural pause conducted to verify: correct patient identity, procedure to be performed, correct side and/or site, correct patient position, and availability of implants, special equipment, or special requirements. Area was anesthetized with 1% Xylocaine. A small wedge of skin incision was made with #15 scalpel blade and carried down to the subcuticular tissues. The area was de roofed. It was explored with a hemostat and some granulation tissue excised with an Iris scissors. Bleeding was minimal. The area was then packed with 1/4-inch Nu Gauze and a sterile dressing applied. Patient tolerated procedure well. She is sent home in satisfactory condition. She is advised no antibiotics were indicated in this particular condition. She is going to leave the packing in for 48 hours, then remove it and shower. She is to do a daily shower and packing change and then see a general surgery provider in the office in 1 week. Job ID: [id number] CUTE NURSE documented in this encounter Plan of Treatment Scheduled Referrals Name Type Priority Associated Diagnoses Order [facility] General Surgery Outpatient Referral Routine Expec sravanthi: office visit 06/24/2017 (clinic) (Approximate), Expires: 06/17/2020 documented as of this encounter Procedures Procedure Name Priority Date/Time Associated Diagnosis Comme nts PROCEDURE 06/17/2017 12:00 AM Results for this SUBACUTE NURSE procedure are i n the results section . documented in this encounter Results PROCEDURE (06/17/2017 12:00 AM SUBACUTE NURSE) Procedure Note Luke Rosas D.O. - 06/17/2017 12 :00 AM CST PRE-OPERATIVE DIAGNOSIS Suture abscess, umbilicus. POST-OPERATIVE DIAGNOSIS Suture abscess, umbilicus. PROCEDURE Incision and drainage of infraumbilical abscess. SURGEON(S) AND ROLE Luke Rosas D.O. ANESTHESIA TYPE Local 1% Xylocaine. COMPLICATIONS None. HISTORY AND GROSS FINDINGS: Ms. Franco is seen today with concerns of an umbilical wound abscess. She had a laparoscopic cholecystectomy performed by Dr. Hernandez on November 24, 2016. She presented on 12/10/2016 with a suture-related abscess in the right upper quadrant. The 2nd right uppe r quadrant incision also opened and she required incision and drainage and packing. This was identified as a suture granuloma, and she was listed as an allergy to Vicryl suture after the 2nd episode. She states that y day she woke up and her umbilical incision was red and angry and started draining some purulent material this morning. Operative findings were that of a small superficial abscess just underneath the skin surface. There was no evidence of extension down to the fascial level. DESCRIPTION OF PROCEDURE Patient taken to the special procedure r oom and placed in supine position. Her umbilicus area was prepared with chlorhexidine solution and draped in a sterile manner. UNIVERSAL PROTOCOL Procedural pause conducted to verify: co rrect patient identity, procedure to be performed, correct side and/or site, correct patient position, and availability of implants, special equipment, or special requirements. Area was anesthetized with 1% Xylocaine. A small wedge of skin incision was made with #15 scalpel blade and carried down to the subcuticular tissues. The area was de roofed. It was explored with a hemostat and some granulation tissue excised with an Iris scissors. Bleeding was minimal. The area was then packed with 1/4-inch Nu Gauze and a sterile dressing applied. Patient tolerated procedure well. She is sent home in satisfactory condition. She is advised n o antibiotics were indicated in this particular condition. She is going to leave the packing in for 48 hours, then remove it and shower. She is to do a daily shower and packing change and then see a general surgery pr ovider in the office in 1 week. Job ID: [id number] Luke Rosas D.O. OTHER documented in this encounter Visit Diagnoses Diagnosis Granuloma Suture Postoperative Initial - Primary documented in this encounter Care Teams Tape Rules Printing Machine Operator Relationship Specialty Start Date End Date Lissa Deshpande P.A.-C. PCP - General 10/24/16 03/26/19 documented as of this encounter
--- OUTSIDE RECORDS SUMMARY | 2022-01-23 23:57 | XMS_ITS | Encounter Summary ---
:1985 Author Organization [facility] Address [address] [place] [address] Care Team Providers Name Role Phone Lissa Deshpande P.A.-C. Primary Care Provider Encounter Details Date Type Department Care Team Description 06/18/2017 Orders Only Department of General Rudy Pringle M. D. Surgery in [address] [phone] Social History Tobacco Use Types Packs/Day Years [...] or relatives? How often do you attend mosque or More than 4 times per year 05/31/2021 latter day services? Do you belong to any clubs or Yes 05/31/2021 organizations such as mosque groups, unions, fraternal or athletic groups, or [...] on filedocumented in this encounter Care Teams Mcat Tutor Relationship Specialty Start Date End Date Lissa Deshpande P.A.-C. PCP - General 10/24/16 03/26/19 documented as of this encounter
--- OUTSIDE RECORDS SUMMARY | 2022-01-23 23:57 | XMS_ITS | Encounter Summary ---
:[address] [facility] Address [address] [place] [address] Care Team Providers Name Role Phone Lissa Deshpande P.A.-C. Primary Care Provider Encounter Details Date Type Department Care Team Description 11/24/2016 Telemedicine Department of General Surgery Social History Tobacco Use Types Packs/Day Years [...] place to sleep or slept in a longterm (including now)? Sex Assigned at Date Recorded Female 01/23/2021 7:15 AM CDT documented as of this encounter Plan of Treatment Not on filedocumented as of this encounter Procedures Procedure Name Priority Date/Time Associated Diagnosis Comme nts SURGERY IMAGE EXAM Routine 11/24/2016 9:24 AM Res ults for this CDT procedure are i n the results section. documented in this encounter Results SURGERY IMAGE EXAM (11/24/2016 9:24 AM CDT) Specimen (Source) Anatomical Collection Method Collection Time Re ceived Time Location / / Volume Laterality 11/24/2016 9:30 AM CDT Narrative [facility] - 11/24/2016 9:24 AM CDT This order has been created and auto-finalized to support the import of images acquired without order. The clini dru documentation to support these images can be found on the encounter saad t produced images. Provider Not In System IMG NON RAD IMAGING PROCEDUR ES Performing Organization Address City/State/ZIP Code Phon e Number [facility] NA documented in this encounter Visit Diagnoses Not on filedocumented in this encounter Care Teams Woods Manager Relationship Specialty Start Date End Date Lissa Deshpande P.A.-C. PCP - General 10/24/16 03/26/19 documented as of this encounter
--- OUTSIDE RECORDS SUMMARY | 2022-01-23 23:57 | XMS_ITS | Encounter Summary ---
:1985 Author Organization [facility] Address [address] [place] [address] Care Team Providers Name Role Phone Lissa Deshpande P.A.-C. Primary Care Provider Reason for Visit Reason Comments Communication Questions about packing of u mbilical wound Encounter Details Date Type Department Care Team Description 06/19/2017 Clinical Department of Angela, Communication Communication General Surgery in Tia Christian (Sariah goyal about [facility]. packing of umbi lical [place] wound) [address] [facility] [place] [phone] Social History Tobacco Use Types Packs/Day Years [...] for the very basics like Not h jaaj at all 05/31/2021 food, housing, medical care, [...] this encounter Miscellaneous Notes Telephone Encounter - Tia Miller R.N. - 06/19/2017 12:57 PM ANGLEDOZER OPERATOR Noa called and stated that she had removed the packing from the abdominal wound and the area didhave some bleeding which she was concerned about. She was also asking about instructions for how often to change the dressing. I told her a little bleeding at the time of the packing change can be normal and that notstates to shower and change the packing once a day till she returns. Patient was fine with this information. EDOZER OPERATOR documented in this encounter Plan of Treatment Not on filedocumented as of this encounter Visit Diagnoses Not on filedocumented in this encounter Care Teams Card Reader Relationship Specialty Start Date End Date Lissa Deshpande P.A.-C. PCP - General 10/24/16 03/26/19 documented as of this encounter
--- OUTSIDE RECORDS SUMMARY | 2022-01-23 23:57 | XMS_ITS | Encounter Summary ---
:1985 Author Organization [facility] Address [address] [place] [address] Care Team Providers Name Role Phone Lissa Deshpande P.A.-C. Primary Care Provider Encounter Details Date Type Department Care Team Description 06/16/2017 Orders Only Department of General Amanda Amor, Surgery in [place], Dea, P. A. [address] [address] [place] [address] [phone] Social History Tobacco Use Types Packs/Day Years [...] on filedocumented in this encounter Care Teams Device Test Engineer Relationship Specialty Start Date End Date Lissa Deshpande P.A.-C. PCP - General 10/24/16 03/26/19 documented as of this encounter
--- OUTSIDE RECORDS SUMMARY | 2022-01-23 23:57 | XMS_ITS | Encounter Summary ---
:1985 Author Organization [facility] Address [address] [place] [address] Care Team Providers Name Role Phone Mer Hoang APRN C.N.Juan David, D.N.P. Primary Care Provider Reason for Visit Reason Comments Treatment Episode Based Medications (Routine) - Closed Specialty Diagnoses / Procedures Referred By Contact Refer red To Contact Diagnoses Migraine Headache [facility] Procedures [place] DRUGS UNCLASSIFIED INJECTION M.Mehreen [address] [place] [phone] Fax: Referral ID Status Reason Start Date Expiration Date Visits Requ ested Visits Authorized [id number] Closed 02/06/2021 02/06/2022 1 1 Encounter Details Date Type Department Care Team Description 02/06/2021 Infusion Department of Infusion Rosita, Migra ine Headache Therapy in Yvan Johnson M.D. (Primary Dx) [address] [phone] [phone] Social History Tobacco Use Types Packs/Day Years [...] or more drinks on one occasion? Ne manri 04/01/2021 Comment: Not asked Social Isolation Answer [...] 05/31/2021 organizations such as judaism groups, unions, [employer] [employer] or athletic groups, or school groups? How [...] Sign Reading Time Taken Comments Blood Pressure 113/77 02/06/2021 10:58 AM CDT Pulse 77 02/06/2021 10:58 AM CDT Temperature 36 ??C (96.8 ??F) 02/06/2021 10:58 AM CDT Respiratory Rate 18 02/06/2021 10:58 AM CDT Oxygen Saturation 100% 02/06/2021 10:58 AM CDT Inhaled Oxygen Concentration - - Weight - - Height - - Body Mass Index - - documented in this encounter Plan of Treatment Not on filedocumented as of this encounter Visit Diagnoses Diagnosis Migraine Headache - Primary documented in this encounter Administered Medications Inactive Administered Medications - up to 3 most recent administrations Medication Order MAR Action Action Date Dose Rate Site ketorolac injection 30 mg (TORADOL) Given 02/06/2021 9:48 AM CDT 30 mg 30 mg, intravenous, Once, On Thu02/06/21 at 0945, For 1 dose, Adult IV push rate: Over 15 seconds. Peds IV push rate: Over 1 minute. 60 mg dose only for IM, not recommended for IV. ondansetron (PF) injection 4 mg (ZOFRAN) Given 02/06/2021 9:50 AM CDT 4 mg 4 mg, intravenous, Once, On Thu02/06/21 at 0945, For 1 dose sodium chloride 0.9 % injection 10 mL Given 02/06/2021 10:57 AM CDT 10 mL 10 mL, intravenous, As needed, line care, Starting on Thu02/06/21 at 0931 Given 02/06/2021 9:55 AM CDT 10 mL Given 02/06/2021 9:50 AM CDT 10 mL valproate 1,000 mg in NaCl 0.9% New Bag 02/06/2021 9:55 AM CDT 1,000 mg 60 mL/hr IVPB (DEPACON) 1,000 mg, intravenous, at 60 mL/hr, Administer over 60 Minutes, Once, On Thu02/06/21 at 0945, For 1 dose, IV Push Guidelines - Adults: Administer over 2-5 minutes; Pediatrics: Administer over 7-10 minutes. documented in this encounter Additional Health Concerns Assessment Noted Time PHQ-9 Depression Total Score: 3 01/23/2021 9:58 AM CDT documented as of this encounter Care Teams [employer] Relationship Specialty Start Date End Date Mer Hoang APRN, C.N.P., D.N.P. PCP - General 03/27/19 02/26/[address] [place] [phone] documented as of this encounter
[2022-01-24 00:02] LABS: Troponin, Point-of-Care* 0.01 ng/ml (0.01-0.04)
[2022-01-24 00:08] LABS: Chloride* 106 mmol/L (96-114)
[2022-01-24 00:09] LABS: Albumin* 4.5 g/dL (3.3-5.0); Potassium* 3.5 mmol/L (3.6-5.1); Sodium* 138 mmol/L (135-149)
[2022-01-24] MEDS: KETOROLAC 15 MG/ML inj IVP (00:10)
[2022-01-24 00:11] LABS: Creatinine* 0.7 mg/dL (0.5-1.5); Est. Creatinine Clearance* 89.56; Estimated Glomerular Filt Rate 116 ml/min
[2022-01-24 00:12] LABS: Alanine Aminotransferase* 25 U/L (4-35); Alkaline Phosphatase* 71 U/L (40-150); Aspartate Amino Transferase* 25 U/L (12-35); Bilirubin Total* 0.1 mg/dL (0.1-1.5); Blood Urea Nitrogen* 14 mg/dL (5-24); Calcium* 10.2 mg/dL (8.4-10.6); Carbon Dioxide* 23 mmol/L (20-32); Glucose* 101 mg/dL (60-115); Total Protein* 7.2 g/dL (6.0-8.3)
[2022-01-24 00:14] LABS: D Dimer Quantitative* 0.34 ug/ml (0.00-0.50)
[2022-01-24 00:15] LABS: C Reactive Protein* 1.1 mg/dL (0.5-1.0)
[2022-01-24 00:30] LABS: Appearance Urine Clear (Clear); Bilirubin Urine Negative (Negative); Blood Urine Negative (Negative); Color Urine Yellow (Yellow); Glucose Urine Negative (Negative); Ketones Urine Negative (Negative); Leukocyte Esterase Urine Negative (Negative); Nitrite Urine Negative (Negative); Protein Urine Negative (Negative); Specific Gravity Urine 1.015 (1.000-1.030); Urobilinogen Urine 0.2 (0.2-1.0)
[2022-01-24 00:38] LABS: Bacteria Urine Few; RBC Urine 0-2 (0-2); Squamous Epithelial Cell Urine Few (None-Few); WBC Urine 0-2 (0-5)
[2022-01-24 01:20] VITALS: BP 132/62; PULSE 80; RESP 16; O2SAT 99
== END 2022-01-24 01:44 | disposition home or self-care (01) ==
PROVIDERS: Family Medicine; Emergency Provider Family Medicine; PCP Nurse Practitioner Family
DX: R07.89 Other chest pain (principal)
CPT/HCPCS: 36415; 71045; 80053; 81001; 84484; 85025; 85379; 86140; 87086; 93005; 96374; 99285; J1885

== ENCOUNTER 2022-08-23 08:25 | Emergency (ER) | payer OTHER, SELFPAY ==
[2022-08-23] VITALS (8 sets, daily range): BP systolic 89–99; BP diastolic 58–66; PULSE 72–89; RESP 16; TEMP 35.8; O2SAT 97–99; BMI 33.9
--- NOTE | 2022-08-23 08:57 | ED.GENADULT ---
HPI - General Adult General Chief complaint: Unspecified Complaint, Adult Stated complaint: Dehydrated post gastric bypass surgery Time Seen by Provider: 08/23/22 08:45 Source: patient Mode of arrival: ambulatory Limitations: no limitations History of Present Illness HPI narrative: 36-year-old female postop day 4. Status post gastric sleeve bypass coming in today concerned about dehydration. States that she has had to drink a certain amount of fluid per day in for the last 2 perhaps 3 days she has not hit her going. She called her surgical team who recommended she come in for a L of fluids. She states that whenever she drinks she gets a pain left side of her chest. She describes it as a discomfort that does not take her breath away. This pain is generally not present when she is not drinking aside from every now and then she will feel a ping of discomfort. She denies feeling short of breath. She denies coughing. She denies palpitations or dizziness. No fevers or chills. No pain in her legs. She is otherwise feeling fine. Her surgical team told her this could be the pain from the gas that they put inside her abdominal cavity for the surgery or perhaps gastric cramping. She is not on hormone therapy, no history of blood clots. Related Data Home Medications Medication Instructions Recorded Confirmed clonazepam 1 mg tablet 1 mg PRN 01/23/22 duloxetine 20 mg capsule,delayed 20 mg PO 01/23/22 release eletriptan 40 mg tablet 40 mg 01/23/22 eptinezumab-jjmr 100 mg/mL mg IV 01/23/22 intravenous solution (Vyepti) escitalopram oxalate 5 mg tablet mg 01/23/22 hydroxyzine HCl 25 mg tablet mg 01/23/22 olanzapine 10 mg tablet mg 01/23/22 onabotulinumtoxinA 200 unit unit 01/23/22 solution for injection (Botox) ondansetron 4 mg disintegrating mg 01/23/22 tablet promethazine 25 mg tablet mg 01/23/22 Allergies Allergy/AdvReac Type Severity Reaction Status Date / Time sertraline AdvReac Unknown serotonin Verified 08/23/22 08:39 syndrome Review of Systems Status of ROS: Reports: 10 or more systems reviewed and unremarkable except as noted in History and below [facility] Medical History Postconcussion syndrome ?F07.81 - Postconcussional syndrome (ICD-10) Spontaneous vaginal delivery (07/05/19) ?O80 - Encounter for full-term uncomplicated delivery (ICD-10) Social History Narrative: , 3 kids, 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 Does not appear ill or toxic. Alert and oriented. Answers questions appropriately. Mood and affect are appropriate. Thoughts are goal oriented and rational. No tangential or magical thinking noted. Patient speaks in full sentences without needing to catch her breath. HEENT: Normocephalic atraumatic. Pupils are equally round reactive to light. Extraocular muscles are intact. Conjunctivae are moist without any icterus noted. Moist mucous membranes. Posterior pharynx is normal. Neck is soft without any lymphadenopathy or thyromegaly. No masses are appreciated. Cardiovascular: Heart is regular rate and rhythm S1 and S2 are present without any murmurs. Lungs: Clear to auscultation bilaterally no wheezes rhonchi or rales are appreciated. Patient takes deep breaths without any discomfort. Abdomen: Soft with normal bowel sounds. Incisions are all healing appropriately. Extremities: Bilateral lower extremities are without edema. Normal DP and PT pulses. Skin: Well perfused without any obvious rashes. Const: Vital Signs, click to edit/add: Vital Signs - 24 hr 08/23/22 08:31 08/23/22 09:19 08/23/22 09:20 Temperature 96.5 F L Pulse Rate 76 79 Pulse Rate [Left P ulse Oximeter] 89 Respiratory Rate 16 Blood Pressure 97/61 Blood Pressure [Ri ght Upper Arm] 97/66 Pulse Oximetry 97 97 98 Oxygen Delivery Me thod Room Air 08/23/22 09:30 08/23/22 09:31 08/23/22 09:45 Temperature Pulse Rate 75 75 82 Pulse Rate [Left P ulse Oximeter] Respiratory Rate Blood Pressure 89/58 L Blood Pressure [Ri ght Upper Arm] Pulse Oximetry 97 97 99 Oxygen Delivery Me thod Course Course Hospital Course: IV was established and patient received a L of normal saline. As far as her discomfort when drinking water I agree with her surgical team, however other things to consider would be pneumonia, postoperative infection or complication, PE. Given that the patient is hemodynamically stable and the discomfort only comes when she is swallowing larger amounts of fluid, at this time I do not think that we need to pursue further imaging or testing. Discussed returning if it gets worse certainly or following up with her surgical team. Patient was agreeable with everything we discussed had no other questions. Vital Signs Vital signs: Initial Vital Signs Temperature 96.5 F L 08/23/22 08:31 Temperature Source Temporal Artery Scan 08/23/22 08:31 Pulse Rate 89 08/23/22 08:31 Respiratory Rate 16 08/23/22 08:31 Blood Pressure 97/66 08/23/22 08:31 Blood Pressure Mean 76 08/23/22 08:31 Blood Pressure Position Sitting 08/23/22 08:31 Pulse Oximetry 97 08/23/22 08:31 Oxygen Delivery Method Room Air 08/23/22 08:31 Vital Signs Temperature 96.5 F L 08/23/22 08:31 Pulse Rate 89 08/23/22 08:31 Respiratory Rate 16 08/23/22 08:31 Blood Pressure 97/66 08/23/22 08:31 Pulse Oximetry 97 08/23/22 08:31 Oxygen Delivery Method Room Air 08/23/22 08:31 Temperature 96.5 F L 08/23/22 08:31 Pulse Rate 82 08/23/22 09:45 Respiratory Rate 16 08/23/22 08:31 Blood Pressure 89/58 L 08/23/22 09:31 Pulse Oximetry 99 08/23/22 09:45 Oxygen Delivery Method Room Air 08/23/22 08:31 Medical Decision Making MDM Narrative Medical decision making narrative: Postoperative dehydration. Treated per above. Discharge Plan Discharge Clinical Impression: Dehydration Patient Disposition: Home, Self-Care Condition: Improved Additional Instructions: Return to the ER if you feel like you are getting worse instead of better, follow up with your surgical team as scheduled. Prescriptions: No Action clonazepam 1 mg tablet 1 mg PRN olanzapine 10 mg tablet promethazine 25 mg tablet hydroxyzine HCl 25 mg tablet ondansetron 4 mg tablet,disintegrating eletriptan 40 mg tablet 40 mg Hold Instructions: 6 weeks after surgery escitalopram oxalate 5 mg tablet duloxetine 20 mg capsule,delayed release(DR/EC) 20 mg PO Botox 200 unit recon soln Patient Comments: 200 unit every three months Vyepti 100 mg/mL solution IV Hold Instructions: 6 weeks after surgery Patient Comments: 100 mg intravenously every three months Follow Up/Referrals: Olga Rivas, COUNSELOR DORMITORY, SPEECH THERAPY TEACHER [Primary Care Provider] - Stand Alone Forms: [facility] Info Instructions
[2022-08-23] MEDS: 0.9 % SODIUM CHLORIDE 1000 ml 1,000 ML IV (09:02)
== END 2022-08-23 10:13 | disposition home or self-care (01) ==
PROVIDERS: Emergency Provider Family Medicine; PCP Nurse Practitioner Family
DX: E86.0 Dehydration (principal)
CPT/HCPCS: 96360; 99283; 99284; J7030

== ENCOUNTER 2022-11-07 09:28 | Emergency (ER) | payer OTHER, SELFPAY ==
[2022-11-07 09:37] VITALS: BP 110/77; PULSE 86; RESP 18; TEMP 36.2; O2SAT 99
--- NOTE | 2022-11-07 10:11 | ED_ITS ---
HPI - General Adult General Chief complaint: Nausea/Vomiting Stated complaint: Nausea Time Seen by Provider: 11/07/22 09:43 History of Present Illness HPI narrative: pt here with nausea that is an ongoing issue since her gastric sleeve surgery, she is only able todrink protein shakes and water, has lost approx 37lb since surgery, has had 2 endoscopies done to look at issues, sees care team at mid November, has tried zofran, compazine, and using omeprazole and prilosec, also having constipation issues, chronic medial abdominal pain 37-year-old woman presenting to the emergency department with concern of persistent nausea and epigastric pain. Cramping in nature somewhat. Had a gastric sleeve placed primarily to assist with weight loss to control migrainous headaches. Still has headaches but overall improved. Which is struggling with this is chronic nausea in particular. Has had a couple of upper endoscopies with apparently unremarkable findings. Has only been able to drink shakes. Went on a cruise couple of weeks ago. Returned and over this last week has been particularly tired. Is generally mopey which she means that she is just ready to cry regularly. Blood draw yesterday she says was normal for vitamin-D levels and B12. She did say that parathyroid hormone was a little low but calcium levels were normal. She does have 8 mg tablets of Zofran which do not seem to do whole lot. She is struggling with constipation but does not believe herself to be constipated now. Takes regular senna. Just wants to know what is wrong at this point. Related Data Home Medications Medication Instructions Recorded Confirmed clonazepam 1 mg tablet 1 mg PRN 01/23/22 duloxetine 20 mg capsule,delayed 20 mg PO 01/23/22 release eletriptan 40 mg tablet 40 mg 01/23/22 eptinezumab-jjmr 100 mg/mL mg IV 01/23/22 intravenous solution (Vyepti) escitalopram oxalate 5 mg tablet mg 01/23/22 hydroxyzine HCl 25 mg tablet mg 01/23/22 olanzapine 10 mg tablet mg 01/23/22 onabotulinumtoxinA 200 unit unit 01/23/22 solution for injection (Botox) ondansetron 4 mg disintegrating mg 01/23/22 tablet promethazine 25 mg tablet mg 01/23/22 Previous Rx's Medication Instructions Recorded promethazine 25 mg tablet 25 mg PO Q6H PRN #30 tabs 11/07/22 sucralfate 1 gram tablet 1 g PO BID #60 tabs 11/07/22 Allergies Allergy/AdvReac Type Severity Reaction Status Date / Time sertraline AdvReac Unknown serotonin Verified 11/07/22 11:09 syndrome Review of Systems Status of ROS: Reports: 6 or more systems reviewed and unremarkable except as noted in History and below PFSH [facility] Medical History Spontaneous vaginal delivery (07/05/19) ?O80 - Encounter for full-term uncomplicated delivery (ICD-10) Postconcussion syndrome ?F07.81 - Postconcussional syndrome (ICD-10) Social History Narrative: , 3 kids, 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 NAD. Subtly tears up at 1 point during conversation. Skin is quite tanned. Abdomen is soft normoactive bowel sounds. Nontender. (I comment on the lack of apparent pain she says ?well it always hurts?) She has postoperative scars consistent with her gastric sleeve. Breathing easily. Lungs appear to be clear. Heart in a regular rate and rhythm without murmur rub or gallop. Extremities are well perfused without edema. Const: Vital Signs, click to edit/add: Vital Signs - 24 hr 11/07/22 09:37 Temperature 97.1 F L Pulse Rate [Right Pulse Oximeter] 86 Respiratory Rate 18 Blood Pressure [Ri ght Upper Arm] 110/77 Pulse Oximetry 99 Oxygen Delivery Me thod Room Air Documenting provider has reviewed patient's vital signs: yes Course Vital Signs Vital signs: Initial Vital Signs Temperature 97.1 F L 11/07/22 09:37 Temperature Source Temporal Artery Scan 11/07/22 09:37 Pulse Rate 86 11/07/22 09:37 Respiratory Rate 18 11/07/22 09:37 Blood Pressure 110/77 11/07/22 09:37 Blood Pressure Mean 88 11/07/22 09:37 Blood Pressure Position Sitting 11/07/22 09:37 Pulse Oximetry 99 11/07/22 09:37 Oxygen Delivery Method Room Air 11/07/22 09:37 Vital Signs Temperature 97.1 F L 11/07/22 09:37 Pulse Rate 86 11/07/22 09:37 Respiratory Rate 18 11/07/22 09:37 Blood Pressure 110/77 11/07/22 09:37 Pulse Oximetry 99 11/07/22 09:37 Oxygen Delivery Method Room Air 11/07/22 09:37 Temperature 97.1 F L 11/07/22 09:37 Pulse Rate 67 11/07/22 12:03 Respiratory Rate 18 11/07/22 12:03 Blood Pressure 92/52 L 11/07/22 12:03 Pulse Oximetry 100 11/07/22 12:03 Oxygen Delivery Method Room Air 11/07/22 12:03 Medical Decision Making MDM Narrative Medical decision making narrative: She would like relief of nausea in particular. Limited modalities available here at this time in the ER and does not appear to be in an emergent situation h owever no abdominal imaging has been done. Perhaps we can provide clarity in this regard. IV contrasted CT of abdomen pelvis has been ordered. Otherwise would check CBC and basic chemistries. Give fluids and give Reglan trial. She wants to know how to feel better at home. CT abdomen and pelvis with 75 cc Isovue 370 IV contrast. COMPARISON: None. FINDINGS: The liver is normal in size, shape and attenuation. Status post cholecystectomy. No biliary duct dilation. The spleen, adrenal glands and pancreas are within normal limits. The kidneys are unremarkable. No hydronephrosis. Unremarkable appearing bladder. Postoperative changes from gastric sleeve which appears decompressed. No evidence of surrounding inflammation or fluid. This is however suboptimally evaluated due to lack of oral contrast. No evidence of bowel obstruction. Moderate fecal retention throughout the colon. Dilated fluid-filled appendix measuring up to 1.3 cm without significant surrounding inflammation. Findings suspicious for acute appendicitis in the appropriate clinical setting. No evidence of adjacent free fluid or fluid collection. No significant free fluid and no free air. Right ovarian cyst measuring 1.6 cm. The lower chest is unremarkable. IMPRESSION: Dilated fluid-filled appendix measuring up to 1.3 cm without significant surrounding inflammation. Findings suspicious for acute appendicitis in the appropriate clinical setting. No evidence of adjacent free fluid or fluid collection. Postoperative changes from gastric sleeve which appears decompressed. No evidence of surrounding inflammation or fluid. This is however suboptimally evaluated due to lack of oral contrast. Clinical picture and exam are not consistent with appendicitis. Labs are reassuring. Further given promethazine for nausea relief. Overall improved. See patient discharge plan Lab Data Lab results reviewed: Yes I reviewed the patient's lab results Labs: Lab Results 11/07/22 Range/Units 10:36 WBC 3.76 L (4.50-11.00) K/uL RBC 4.58 (4.00-5.20) m/uL Hgb 13.4 (12.0-16.0) gm/dL Hct 39.9 (33.0-51.0) % MCV 87 (80-100) fL MCH 29 (26-34) pg MCHC 34 (32-36) gm/dL RDW Coeff of Yohan 13.6 (11.5-15.5) % Plt Count 264 (140-440) K/uL Neut % (Auto) 43.9 (42.0-72.0) % Lymph % (Auto) 43.1 (20-44) % Wright % (Auto) 10.6 (0.0-11.0) % Eos % (Auto) 1.6 (0.0-7.0) % Baso % (Auto) 0.8 (0.0-3.0) % Neut # (Auto) 1.70 (1.7-7.0) K/uL Lymph # (Auto) 1.60 (0.90-2.90) K/uL Wright # (Auto) 0.40 (0.00-0.90) K/UL Eos # (Auto) 0.10 (0.00-0.50) K/uL Baso # (Auto) 0.00 (0.00-0.30) K/uL Abs Immat Gran (auto) 0.00 (0.00-0.30) K/uL Imm/Tot Granulo (auto) 0.0 % Sodium 138 (135-149) mmol/L Potassium 3.6 (3.6-5.1) mmol/L Chloride 103 (96-114) mmol/L Carbon Dioxide 25 (20-32) mmol/L BUN 11 (5-24) mg/dL Creatinine 0.6 (0.5-1.5) mg/dL Estimated GFR 120 ml/min Glucose 76 (60-115) mg/dL Calcium 9.2 (8.4-10.6) mg/dL Total Bilirubin 0.6 (0.1-1.5) mg/dL Direct Bilirubin 0.0 (0.0-0.5) mg/dL AST 28 (12-35) U/L ALT 29 (4-35) U/L Alkaline Phosphatase 52 (40-150) U/L Total Protein 6.9 (6.0-8.3) g/dL Albumin 4.4 (3.3-5.0) g/dL Discharge Plan Discharge Clinical Impression: Chronic nausea, Postoperative abdominal pain Patient Disposition: Home, Self-Care Condition: Improved Additional Instructions: Continue to focus on hydration. Maybe this sucralfate will help both pain and nausea. Perhaps a neuroepileptic, maybe even something like gabapentin would be helpful in the future. Will also send in promethazine as an alternative for nausea as may have been helpful here. Prescriptions: New promethazine 25 mg tablet 25 mg PO Q6H PRNQty: 30 0RF sucralfate 1 gram tablet 1 g PO BID Qty: 60 2RF No Action clonazepam 1 mg tablet 1 mg PRN olanzapine 10 mg tablet promethazine 25 mg tablet hydroxyzine HCl 25 mg tablet ondansetron 4 mg tablet,disintegrating eletriptan 40 mg tablet 40 mg Hold Instructions: 6 weeks after surgery escitalopram oxalate 5 mg tablet duloxetine 20 mg capsule,delayed release(DR/EC) 20 mg PO Botox 200 unit recon soln Patient Comments: 200 unit every three months Vyepti 100 mg/mL solution IV Hold Instructions: 6 weeks after surgery Patient Comments: 100 mg intravenously every three months Follow Up/Referrals: Olga Rivas, ROD BUSTER HELPER, RETURN AGENT AIRPORT [Primary Care Provider] - Stand Alone Forms: [facility] Info Instructions
--- NOTE | 2022-11-07 10:22 | CRLHL7_ITS ---
For Patients: As a result of the Century Cures Act, medical imaging exams and procedure reports are released immediately into your electronic medical record. You may view this report before your referring provider. If you have questions, please contact your health care provider. INDICATION: EPIGASTRIC PAIN SINCE GASTRIC SLEEVE SURGERY 08/19. CHRONIC NAUSEA TECHNIQUE: CT abdomen and pelvis with 75 cc Isovue 370 IV contrast. COMPARISON: None. FINDINGS: The liver is normal in size, shape and attenuation. Status post cholecystectomy. No biliary duct dilation. The spleen, adrenal glands and pancreas are within normal limits. The kidneys are unremarkable. No hydronephrosis. Unremarkable appearing bladder. Postoperative changes from gastric sleeve which appears decompressed. No evidence of surrounding inflammation or fluid. This is however suboptimally evaluated due to lack of oral contrast. No evidence of bowel obstruction. Moderate fecal retention throughout the colon. Dilated fluid-filled appendix measuring up to 1.3 cm without significant surrounding inflammation. Findings suspicious for acute appendicitis in the appropriate clinical setting. No evidence of adjacent free fluid or fluid collection. No significant free fluid and no free air. Right ovarian cyst measuring 1.6 cm. The lower chest is unremarkable. IMPRESSION: Dilated fluid-filled appendix measuring up to 1.3 cm without significant surrounding inflammation. Findings suspicious for acute appendicitis in the appropriate clinical setting. No evidence of adjacent free fluid or fluid collection. Postoperative changes from gastric sleeve which appears decompressed. No evidence of surrounding inflammation or fluid. This is however suboptimally evaluated due to lack of oral contrast. Please note that all CT scans at this facility use dose modulation, iterative reconstruction, and/or weight-based dosing when appropriate to reduce radiation dose to as low as reasonably achievable. Dictated by Ozzy Henriquez MD @ 11/07/2022 12:13:24 PM (Electronically Signed)
[2022-11-07] MEDS: 0.9 % SODIUM CHLORIDE 1000 ml 1,000 ML IV (10:39)
[2022-11-07 10:47] LABS: Basophils Percent Auto 0.8 % (0.0-3.0); Eosinophils Percent Auto 1.6 % (0.0-7.0); Hematocrit 39.9 % (33.0-51.0); Hemoglobin* 13.4 gm/dL (12.0-16.0); Lymphocytes Percent Auto 43.1 % (20-44); Mean Corpuscular HGB Conc 34 gm/dL (32-36); Mean Corpuscular Hemoglobin 29 pg (26-34); Mean Corpuscular Volume 87 fL (80-100); Monocytes Percent Auto 10.6 % (0.0-11.0); Neutrophils Percent Auto 43.9 % (42.0-72.0); Platelet Count* 264 K/uL (140-440); RDW Coefficient of Variation % 13.6 % (11.5-15.5); Red Blood Count 4.58 m/uL (4.00-5.20); White Blood Count* 3.76 K/uL (4.50-11.00)
[2022-11-07 11:00] LABS: Albumin* 4.4 g/dL (3.3-5.0)
[2022-11-07 11:01] LABS: Chloride* 103 mmol/L (96-114); Potassium* 3.6 mmol/L (3.6-5.1); Sodium* 138 mmol/L (135-149)
[2022-11-07 11:03] LABS: Alkaline Phosphatase* 52 U/L (40-150); Aspartate Amino Transferase* 28 U/L (12-35); Bilirubin Total* 0.6 mg/dL (0.1-1.5); Slide Review Reflex No; Total Protein* 6.9 g/dL (6.0-8.3)
[2022-11-07 11:04] LABS: Alanine Aminotransferase* 29 U/L (4-35); Blood Urea Nitrogen* 11 mg/dL (5-24); Carbon Dioxide* 25 mmol/L (20-32); Creatinine* 0.6 mg/dL (0.5-1.5); Estimated Glomerular Filt Rate 120 ml/min; Glucose* 76 mg/dL (60-115)
[2022-11-07 11:05] LABS: Calcium* 9.2 mg/dL (8.4-10.6)
[2022-11-07] MEDS: METOCLOPRAMIDE HCL 10 MG in 0.9 % SODIUM CHLORIDE 100 ml 100 ML 306 MG IVPB (11:06)
[2022-11-07 12:03] VITALS: BP 92/52; PULSE 67; RESP 18; O2SAT 100
[2022-11-07] MEDS: PROMETHAZINE 25 MG/ML INJ 12.5 MG IVP (12:10)
== END 2022-11-07 13:20 | disposition home or self-care (01) ==
PROVIDERS: Emergency Provider Family Medicine; PCP Nurse Practitioner Family
DX: R11.0 Nausea (principal); G89.18 Other acute postprocedural pain
CPT/HCPCS: 36415; 74177; 80048; 80076; 85025; 96365; 96375; 99284; 99285; J2550; J2765; J7030; Q9967

== ENCOUNTER 2023-03-18 15:23 | Emergency (ER) | payer OTHER, SELFPAY ==
[2023-03-18 15:31] VITALS: BP 103/67; PULSE 85; RESP 18; O2SAT 100; BMI 24.1
--- NOTE | 2023-03-18 15:36 | ED_ITS ---
HPI - General Adult General Time Seen by Provider: 15:37 Date Seen: 03/18/23 Chief complaint: Vaginal Bleeding Stated complaint: spotting four weeks Time Seen by Provider: 03/18/23 15:27 Source: patient Mode of arrival: ambulatory Limitations: no limitations History of Present Illness HPI narrative: Noa is a 37 year old G 4 P 2 at around for weeks gestation past medical history of migraines, depression anxiety presents emerged department via private car with vaginal bleeding. Patient states that this morning she noticed some brown vaginal discharge when she was urinating and wiping, later this afternoon when she urinated she had some mucousy pain discharge, no real blood or clots, she denies any abdominal cramping or back pain. She denies any intercourse this morning. She has this chronic left shoulder and chest pain she had earlier today which is not new, she called the nurse line and they advised her to come to the emergency department. She denies any nausea vomiting, no fevers or chills, no urinary complaints. Patient did have a miscarriage with her 1st . She think she is A+ blood type. Patient has no pain at this time. She is scheduled for an sld educational aide med rec appointment next Thursday here in [place]. Related Data Home Medications Medication Instructions Recorded Confirmed clonazepam 1 mg tablet 1 mg PRN 01/23/22 duloxetine 20 mg capsule,delayed 20 mg PO 01/23/22 release eletriptan 40 mg tablet 40 mg 01/23/22 eptinezumab-jjmr 100 mg/mL mg IV 01/23/22 intravenous solution (Vyepti) escitalopram oxalate 5 mg tablet mg 01/23/22 hydroxyzine HCl 25 mg tablet mg 01/23/22 olanzapine 10 mg tablet mg 01/23/22 onabotulinumtoxinA 200 unit unit 01/23/22 solution for injection (Botox) ondansetron 4 mg disintegrating mg 01/23/22 tablet promethazine 25 mg tablet mg 01/23/22 Previous Rx's Medication Instructions Recorded promethazine 25 mg tablet 25 mg PO Q6H PRN #30 tabs 11/07/22 sucralfate 1 gram tablet 1 g PO BID #60 tabs 11/07/22 Allergies Allergy/AdvReac Type Severity Reaction Status Date / Time sertraline AdvReac Unknown serotonin Verified 11/07/22 11:09 syndrome Review of Systems Status of ROS: Reports: 10 or more systems reviewed and unremarkable except as noted in History and below [facility] Medical History Spontaneous vaginal delivery (07/05/19) ?O80 - Encounter for full-term uncomplicated delivery (ICD-10) Postconcussion syndrome ?F07.81 - Postconcussional syndrome (ICD-10) Surgical History History of endoscopy ?Z98.890 - Other specified postprocedural states (ICD-10) History of sleeve gastrectomy ?Z90.3 - Acquired absence of stomach [part of] (ICD-10) History of cholecystectomy ?Z90.49 - Acquired absence of other specified parts of digestive tract (ICD- 10) Social History Narrative: , 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, 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, nonsmoker Smoking Status: Never smoker Do you use any of these nicotine containing products: None Second hand tobacco smoke exposure: No How often do you have a drink containing alcohol: never How often do you have six or more drinks on one occasion: Never AUDIT-C Alcohol total score: 0 Non-prescribed substance use: denies use service: No Exam Narrative: Exam Narrative: General: No obvious distress, sitting comfortably HEENT: Pupils equal round reactive to light, extraocular muscles intact Lungs: Clear to auscultation bilaterally Heart: Normal sinus rhythm S1-S2 Abdomen: Soft, nontender, bowel sounds present Extremities: No lower extremity edema Neuro: Alert awake and oriented x3 Const: Vital Signs, click to edit/add: Vital Signs - 24 hr 03/18/23 15:31 Pulse Rate [Pulse Oximeter] 85 Respiratory Rate 18 Blood Pressure [Le ft Upper Arm] 103/67 Pulse Oximetry 100 Oxygen Delivery Me thod Room Air Course Course ED Course: 3:45 PM: AIDET performed, workup will include CBC, serum beta HCG, magnesium, metabolic panel, ABO blood type, likely due bedside ultrasound, will await for lab results. Patient is Rh + from previous pregnancies. Patient has no pain at this time. Differential diagnosis include but is not limited to, uterine fibroids, IUP, ectopic , placenta previa, spontaneous in cancers of the uterus and cervix. Reevaluation(s) Reevaluation #1: Serum beta hCG 162.86, CBC showed stable hemoglobin, no leukocytosis, metabolic panel within normal limits, urinalysis showed no signs infection. Unable to visualize IUP, will obtain formal ultrasound TA and TV, patient was in agreement. Reevaluation #2: Imaging showed:IMPRESSION: 1. No sign of intrauterine . 2. Apparent 2 corpus luteum is in the right ovary. This is unlikely to represent an ectopic . However, there is a moderate amount of free fluid. Close clinical monitoring as well as follow-up beta HCG levels and possibly follow up ultrasound recommended for further evaluation of this finding. Patient is scheduled for a follow-up appointment next Thursday, discussed about obtaining a visit sooner, over the next few days for repeat serum beta hCG, due to findings on imaging, plan would be to discharge, patient is doing well otherwise. Reasons to return were given. Vital Signs Vital signs: Initial Vital Signs Temperature Source Temporal Artery Scan 03/18/23 15:31 Pulse Rate 85 03/18/23 15:31 Pulse Rhythm Regular 03/18/23 15:31 Respiratory Rate 18 03/18/23 15:31 Blood Pressure 103/67 03/18/23 15:31 Blood Pressure Mean 79 03/18/23 15:31 Blood Pressure Position Supine 03/18/23 15:31 Pulse Oximetry 100 03/18/23 15:31 Oxygen Delivery Method Room Air 03/18/23 15:31 Vital Signs Pulse Rate 85 03/18/23 15:31 Respiratory Rate 18 03/18/23 15:31 Blood Pressure 103/67 03/18/23 15:31 Pulse Oximetry 100 03/18/23 15:31 Oxygen Delivery Method Room Air 03/18/23 15:31 Pulse Rate 85 03/18/23 15:31 Respiratory Rate 18 03/18/23 15:31 Blood Pressure 103/67 03/18/23 15:31 Pulse Oximetry 100 03/18/23 15:31 Oxygen Delivery Method Room Air 03/18/23 15:31 Medical Decision Making Lab Data Labs: Lab Results 03/18/23 Range/Units 16:15 WBC 6.72 (4.50-11.00) K/uL RBC 4.28 (4.00-5.20) m/uL Hgb 12.9 (12.0-16.0) gm/dL Hct 37.7 (33.0-51.0) % MCV 88 (80-100) fL MCH 30 (26-34) pg MCHC 34 (32-36) gm/dL RDW Coeff of Yohan 12.6 (11.5-15.5) % Plt Count 351 (140-440) K/uL Neut % (Auto) 46.7 (42.0-72.0) % Lymph % (Auto) 43.9 (20-44) % [place] % (Auto) 7.9 (0.0-11.0) % Eos % (Auto) 1.0 (0.0-7.0) % Baso % (Auto) 0.4 (0.0-3.0) % Neut # (Auto) 3.13 (1.7-7.0) K/uL Lymph # (Auto) 2.95 H (0.90-2.90) K/uL [place] # (Auto) 0.50 (0.00-0.90) K/UL Eos # (Auto) 0.07 (0.00-0.50) K/uL Baso # (Auto) 0.03 (0.00-0.30) K/uL Abs Immat Gran (auto) 0.01 (0.00-0.30) K/uL Imm/Tot Granulo (auto) 0.1 % Sodium 139 (135-149) mmol/L Potassium 3.6 (3.6-5.1) mmol/L Chloride 106 (96-114) mmol/L Carbon Dioxide 21 (20-32) mmol/L Anion Gap 12 (7-15) mEq/L BUN 10 (5-24) mg/dL Creatinine 0.5 (0.5-1.5) mg/dL Estimated Creat Clear 124.21 Estimated GFR 125 ml/min Glucose 91 (60-115) mg/dL Calcium 9.1 (8.4-10.6) mg/dL Magnesium 2.4 (1.5-2.6) mg/dL Total Bilirubin 0.2 (0.1-1.5) mg/dL AST 32 (12-35) U/L ALT 21 (4-35) U/L Alkaline Phosphatase 53 (40-150) U/L Total Protein 7.0 (6.0-8.3) g/dL Albumin 4.5 (3.3-5.0) g/dL HCG, Quant 162.86 mIU/mL Blood Type A Positive Discharge Plan Discharge Clinical Impression: Vaginal bleeding in , Type A blood, Rh positive Patient Disposition: Home, Self-Care Condition: Improved Additional Instructions: To make sure you follow-up in 2 days time for serum beta hCG recheck blood draw, or if unable to to have a recheck next Thursday at your OBGYN appointment. Return if any worsening bleeding or pain. Prescriptions: No Action clonazepam 1 mg tablet 1 mg PRN olanzapine 10 mg tablet promethazine 25 mg tablet hydroxyzine HCl 25 mg tablet ondansetron 4 mg tablet,disintegrating eletriptan 40 mg tablet 40 mg Hold Instructions: 6 weeks after surgery escitalopram oxalate 5 mg tablet duloxetine 20 mg capsule,delayed release(DR/EC) 20 mg PO Botox 200 unit recon soln Patient Comments: 200 unit every three months Vyepti 100 mg/mL solution IV Hold Instructions: 6 weeks after surgery Patient Comments: 100 mg intravenously every three months promethazine 25 mg tablet 25 mg PO Q6H PRNQty: 30 0RF sucralfate 1 gram tablet 1 g PO BID Qty: 60 2RF Follow Up/Referrals: Olga Rivas APRN, WRINKLE [facility]ASER [Primary Care Provider] - Stand Alone Forms: [facility] Info Instructions
[2023-03-18 16:29] LABS: Basophils Absolute Auto 0.03 K/uL (0.00-0.30); Basophils Percent Auto 0.4 % (0.0-3.0); Eosinophils Absolute Auto 0.07 K/uL (0.00-0.50); Hematocrit 37.7 % (33.0-51.0); Hemoglobin* 12.9 gm/dL (12.0-16.0); Immature Granulocytes Abs Auto 0.01 K/uL (0.00-0.30); Immature Granulocytes Pct Auto 0.1 %; Lymphocytes Absolute Auto 2.95 K/uL (0.90-2.90); Lymphocytes Percent Auto 43.9 % (20-44); Mean Corpuscular HGB Conc 34 gm/dL (32-36); Mean Corpuscular Hemoglobin 30 pg (26-34); Mean Corpuscular Volume 88 fL (80-100); Monocytes Percent Auto 7.9 % (0.0-11.0); Neutrophils Absolute Auto 3.13 K/uL (1.7-7.0); Neutrophils Percent Auto 46.7 % (42.0-72.0); Platelet Count* 351 K/uL (140-440); RDW Coefficient of Variation % 12.6 % (11.5-15.5); Red Blood Count 4.28 m/uL (4.00-5.20); White Blood Count* 6.72 K/uL (4.50-11.00)
[2023-03-18 16:43] LABS: Slide Review Reflex No
[2023-03-18 16:47] LABS: Albumin* 4.5 g/dL (3.3-5.0)
[2023-03-18 16:48] LABS: Chloride* 106 mmol/L (96-114); Potassium* 3.6 mmol/L (3.6-5.1); Sodium* 139 mmol/L (135-149)
[2023-03-18 16:50] LABS: Alkaline Phosphatase* 53 U/L (40-150); Anion Gap 12 mEq/L (7-15); Aspartate Amino Transferase* 32 U/L (12-35); Bilirubin Total* 0.2 mg/dL (0.1-1.5); Carbon Dioxide* 21 mmol/L (20-32); Creatinine* 0.5 mg/dL (0.5-1.5); Est. Creatinine Clearance* 124.21; Estimated Glomerular Filt Rate 125 ml/min
[2023-03-18 16:51] LABS: Alanine Aminotransferase* 21 U/L (4-35); Blood Urea Nitrogen* 10 mg/dL (5-24); Calcium* 9.1 mg/dL (8.4-10.6); Glucose* 91 mg/dL (60-115); Magnesium* 2.4 mg/dL (1.5-2.6)
[2023-03-18 17:05] LABS: HCG Quantitative* 162.86 mIU/mL
--- NOTE | 2023-03-18 17:48 | CRLHL7_ITS ---
For Patients: As a result of the Century Cures Act, medical imaging exams and procedure reports are released immediately into your electronic medical record. You may view this report before your referring provider. If you have questions, please contact your health care provider. INDICATION: Vaginal bleeding in early . TECHNIQUE: Ultrasound OB pelvis transvaginal. Real-time escalante-scale imaging of the pelvis was performed. COMPARISON: None. FINDINGS: No sign of intrauterine . Endometrium is empty and measures 11 mm in thickness. No signs of hemorrhage. There are 2 structures in the right ovary, both have the appearance of corpus luteum cysts. No other suspicious masses. Moderate amount of free fluid. IMPRESSION: 1. No sign of intrauterine . 2. Apparent 2 corpus luteum is in the right ovary. This is unlikely to represent an ectopic . However, there is a moderate amount of free fluid. Close clinical monitoring as well as follow-up beta HCG levels and possibly follow up ultrasound recommended for further evaluation of this finding. Dictated by Hemanth Dumas MD @ 03/18/2023 7:37:49 PM (Electronically Signed)
== END 2023-03-18 19:07 | disposition home or self-care (01) ==
PROVIDERS: Emergency Provider Student in an Organized Health Care Education/Training Program; PCP Nurse Practitioner Family
DX: O20.9 Hemorrhage in early pregnancy, unspecified (principal); Z67.10 Type A blood, Rh positive
CPT/HCPCS: 36415; 76817; 80053; 83735; 84702; 85025; 86900; 86901; 99284

== ENCOUNTER 2023-04-13 03:48 | Emergency (ER) | payer OTHER, SELFPAY ==
[2023-04-13 03:52] VITALS: BP 98/62; PULSE 88; RESP 16; TEMP 36.1; O2SAT 99; BMI 24.0
--- NOTE | 2023-04-13 04:42 | CRLHL7_ITS ---
For Patients: As a result of the Century Cures Act, medical imaging exams and procedure reports are released immediately into your electronic medical record. You may view this report before your referring provider. If you have questions, please contact your health care provider. INDICATION: pain in bleeding in 1st trimester, known miscarriage TECHNIQUE: Ultrasound OB pelvis transvaginal. Real-time escalante-scale imaging of the pelvis was performed. COMPARISON: Ultrasound March 18, 2023. FINDINGS: No intrauterine or ectopic is visualized. Endometrial thickness, measures 8 mm. Trace amount of heterogenous intrauterine fluid without blood flow on color Doppler. The ovaries appear normal and arterial/venous blood flow is seen on color Doppler. No ovarian/adnexal lesion. There are no suspicious fluid collections noted in the cul-de-sac. IMPRESSION: 1. No intrauterine or ectopic is visualized. Endometrial thickness, measures 8 mm. Trace amount of heterogenous intrauterine fluid without blood flow on color Doppler. 2. Ovaries appear unremarkable. 3. No suspicious fluid collections within the cul-de-sac. Dictated by Ozzy Henriquez MD @ 04/13/2023 7:23:44 AM (Electronically Signed)
[2023-04-13] MEDS: PHENAZOPYRIDINE HCL 200 MG TABLET PO (04:45)
[2023-04-13] MEDS: KETOROLAC 15 MG/ML inj IVP (05:00)
--- NOTE | 2023-04-13 05:09 | ED_ITS ---
HPI - General Adult General Chief complaint: Urogenital Problems, Female Stated complaint: miscarriage, unable to urinate Time Seen by Provider: 04/13/23 04:34 Source: patient Mode of arrival: ambulatory Limitations: no limitations History of Present Illness HPI narrative: 37-year-old female presents the emergency department with feeling that she has been unable to void since midnight which is about 4 hours prior to arrival. Last voided at 11:00 p.m. prior to that. Reports that she has been having a miscarriage, followed by her OB, confirmed. She has been passing and bloody tissue, uncomplicated thus far. No fevers. States that she is now having generalized suprapubic area pain which is different than the crampy miscarriage pain that she had been having earlier in the day but her descriptions are quite vague. There is no diarrhea, no hematuria that she has noticed. Pain is not worse when she attempts to urinate, no giorgio dysuria. Just the suprapubic achiness that feels like she needs to void but feels like she cannot. I did have the nurse triage and bladder scan her and this only yielded about 33 mL. No prior history of urinary retention, has not taken any antihistamines or other similar medications that would cause urinary retention. She feels like the pain is 8 out of 10. Denies use of anticoagulants, denies trauma or injury. Blood type is known to be A positive. No vomiting, no diarrhea. Past medical history reviewed. Medications reviewed. Allergy to sertraline which only cause serotonin syndrome. Nonsmoker. ROS notable for the urinary, gynecological and abdominal symptoms as above. Related Data Home Medications Medication Instructions Recorded Confirmed clonazepam 1 mg tablet 1 mg PRN 01/23/22 eletriptan 40 mg tablet 40 mg 01/23/22 eptinezumab-jjmr 100 mg/mL mg IV 01/23/22 intravenous solution (Vyepti) hydroxyzine HCl 25 mg tablet mg 01/23/22 olanzapine 10 mg tablet mg 01/23/22 onabotulinumtoxinA 200 unit unit 01/23/22 solution for injection (Botox) ondansetron 4 mg disintegrating mg 01/23/22 tablet promethazine 25 mg tablet mg 01/23/22 Previous Rx's Medication Instructions Recorded promethazine 25 mg tablet 25 mg PO Q6H PRN #30 tabs 11/07/22 sucralfate 1 gram tablet 1 g PO BID #60 tabs 11/07/22 Allergies Allergy/AdvReac Type Severity Reaction Status Date / Time sertraline AdvReac Unknown serotonin Verified 11/07/22 11:09 syndrome PFSH PFSH Medical History Spontaneous vaginal delivery (07/05/19) ?O80 - Encounter for full-term uncomplicated delivery (ICD-10) Postconcussion syndrome ?F07.81 - Postconcussional syndrome (ICD-10) Surgical History History of endoscopy ?Z98.890 - Other specified postprocedural states (ICD-10) History of sleeve gastrectomy ?Z90.3 - Acquired absence of stomach [part of] (ICD-10) History of cholecystectomy ?Z90.49 - Acquired absence of other specified parts of digestive tract (ICD- 10) Social History Narrative: , 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, 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, nonsmoker Smoking Status: Never smoker Do you use any of these nicotine containing products: None Second hand tobacco smoke exposure: No How often do you have a drink containing alcohol: never How often do you have six or more drinks on one occasion: Never AUDIT-C Alcohol total score: 0 Non-prescribed substance use: denies use service: No Exam Const: Vital Signs, click to edit/add: Vital Signs - 24 hr 04/13/23 03:52 04/13/23 06:06 Temperature 97.0 F L Pulse Rate [Pulse Oximeter] 88 80 Respiratory Rate 16 16 Blood Pressure [Ri ght Upper Arm] 98/62 95/66 Pulse Oximetry 99 100 Oxygen Delivery Me thod Room Air Room Air Documenting provider has reviewed patient's vital signs: yes Common normals: no apparent distress General appearance: cooperative HENMT: Common normals: normocephalic Head and scalp: normocephalic Mouth: oral and palatal mucosa normal Throat: posterior oropharynx normal Eye: General eye: normal appearance of both eyes Resp: Common normals: normal respiratory effort, no use of accessory muscles and clear to auscultation bilaterally Effort & inspection: able to speak in complete sentences Auscultation: clear to auscultation bilaterally Cardio: Common normals: regular rate, regular rhythm, S1 normal heart sound, S2 normal heart sound and no murmurs Rate: regular rate Rhythm: regular rhythm Heart sounds: S1 normal and S2 normal GI: Common normals: Normal to inspection, nondistended, normoactive bowel sounds present, soft to palpation, no hepatosplenomegaly and no masses Palpation: soft and no hepatosplenomegaly Other: Tender throughout the suprapubic region, concentrating a little bit on the right ovarian area. : Common normals: no CVA tenderness Bladder/kidney exam: no CVA tenderness Back & Pelvis: Common normals: no CVA tenderness Neuro: Speech: speech normal Motor exam: no movement abnormalities noted Psych: Common normals: speech normal Activity/motor behavior: appropriate eye contact Speech: normal speech Insight: insight good Judgement: judgment good Skin: Common normals: no rashes or lesions noted General skin exam: no rashes or lesions noted Course Course ED Course: I performed bedside ultrasound just over the bladder area and I am only seeing about 100 mL in the bladder, this was about 30-40 minutes after the nursing bladder scan. Certainly no large residual urine. She reports severe pain, I suspect that this is just related to the miscarriage but I cannot exclude an ovarian torsion, ectopic or other intra-abdominal, intestinal or appendicitis pathology. Recommended CBC, hCG, urinalysis and pelvic ultrasound. Will give Toradol for pain, I let patient know that we will need to call in the ultrasound techs it will take a few hours to accomplish these things. Reevaluation(s) Time of Reevaluation #1: 07:36 Reevaluation #1: Inform patient of reassuring ultrasound findings, lab work. HCG levels are stable from February which I was initially concerned about. She tells me that her hCG levels were actually 3000 in the clinic last week. And she has passed a lot of tissue in the last 24 hours and that would make sense with the values we are getting today. Urinalysis is suspicious for infection. I think that her bladder pain is most likely from that and will treat with ciprofloxacin. Alarm symptoms reviewed that would warrant ED presentation. Discussed [id number] Pyridium for pain control. This did help with her pain here in the ED. she was able to void twice with no complication, no signs of urinary retention. Findings consistent with bladder infection. Vital Signs Vital signs: Initial Vital Signs Temperature 97.0 F L 04/13/23 03:52 Temperature Source Temporal Artery Scan 04/13/23 03:52 Pulse Rate 88 04/13/23 03:52 Respiratory Rate 16 04/13/23 03:52 Blood Pressure 98/62 04/13/23 03:52 Blood Pressure Mean 74 04/13/23 03:52 Blood Pressure Position Right Lateral 04/13/23 03:52 Pulse Oximetry 99 04/13/23 03:52 Oxygen Delivery Method Room Air 04/13/23 03:52 Vital Signs Temperature 97.0 F L 04/13/23 03:52 Pulse Rate 88 04/13/23 03:52 Respiratory Rate 16 04/13/23 03:52 Blood Pressure 98/62 04/13/23 03:52 Pulse Oximetry 99 04/13/23 03:52 Oxygen Delivery Method Room Air 04/13/23 03:52 Temperature 97.0 F L 04/13/23 03:52 Pulse Rate 80 04/13/23 06:06 Respiratory Rate 16 04/13/23 06:06 Blood Pressure 95/66 04/13/23 06:06 Pulse Oximetry 100 04/13/23 06:06 Oxygen Delivery Method Room Air 04/13/23 06:06 Medications Administered Medications: Discontinued Medications Generic Name Dose Route Start Last Admin Trade Name Freq PRN Reason Stop Dose Admin Acetaminophen 1,000 mg 04/13/23 06:10 04/13/23 06:15 Acetaminophen 500 Mg Tablet PO 04/13/23 06:11 1,000 mg ONCE ONE Administration Ketorolac Tromethamine 15 mg 04/13/23 04:42 04/13/23 05:00 Ketorolac 15 Mg/Ml Inj IVP 04/13/23 04:43 15 mg ONCE ONE Administration Phenazopyridine HCl 200 mg 04/13/23 04:42 04/13/23 04:45 Phenazopyridine Hcl 200 Mg Tablet PO 04/13/23 04:43 200 mg ONCE ONE Administration Medical Decision Making Lab Data Lab results reviewed: Yes I reviewed the patient's lab results Lab results narrative: Normal hemoglobin, no significant leukocytosis. HCG levels are stable from February which I was initially concerned about. She tells me that her hCG levels were actually 3000 in the clinic last week. And she has passed a lot of tissue in the last 24 hours and that would make sense with the values we are getting today. Urinalysis is suspicious for infection. I think that her bladder pain is most likely from that and will treat with ciprofloxacin. Labs: Lab Results 04/13/23 04/13/23 Range/Units 04:42 06:03 WBC 8.16 (4.50-11.00) K/uL RBC 4.18 (4.00-5.20) m/uL Hgb 12.5 (12.0-16.0) gm/dL Hct 36.8 (33.0-51.0) % MCV 88 (80-100) fL MCH 30 (26-34) pg MCHC 34 (32-36) gm/dL RDW Coeff of Yohan 12.4 (11.5-15.5) % Plt Count 303 (140-440) K/uL Neut % (Auto) 69.1 (42.0-72.0) % Lymph % (Auto) 23.5 (20-44) % [place] % (Auto) 6.1 (0.0-11.0) % Eos % (Auto) 0.7 (0.0-7.0) % Baso % (Auto) 0.5 (0.0-3.0) % Neut # (Auto) 5.63 (1.7-7.0) K/uL Lymph # (Auto) 1.92 (0.90-2.90) K/uL [place] # (Auto) 0.50 (0.00-0.90) K/UL Eos # (Auto) 0.06 (0.00-0.50) K/uL Baso # (Auto) 0.04 (0.00-0.30) K/uL Abs Immat Gran (auto) 0.01 (0.00-0.30) K/uL Imm/Tot Granulo (auto) 0.1 % HCG, Quant 165.19 mIU/mL Urine Color Red A (Yellow) Urine Appearance Cloudy A (Clear) Urine pH 7.0 (5.0-8.5) Ur Specific [place] 1.010 (1.000-1.030) Urine Protein 2+ A (Negative) Urine Glucose (UA) Negative (Negative) Urine Ketones Negative (Negative) Urine Blood 3+ A (Negative) Urine Nitrite Negative (Negative) Urine Bilirubin Negative (Negative) Urine Urobilinogen 0.2 (0.2-1.0) Ur Leukocyte Esterase 3+ A (Negative) Urine RBC 2-5 A (0-2) Urine WBC 25-50 A (0-5) Ur Squamous Epith Cells Few (None-Few) Urine Bacteria Few A (None) Imaging Data Pelvic ultrasound: Attestation: I have reviewed the pertinent imaging results. My impression: Mildly thickened intrauterine cavity but no gestational sac, normal-appearing ovaries, no free fluid Radiologist's impression: IMPRESSION: 1. No intrauterine or ectopic is visualized. Endometrial thickness, measures 8 mm. Trace amount of heterogenous intrauterine fluid without blood flow on color Doppler. 2. Ovaries appear unremarkable. 3. No suspicious fluid collections within the cul-de-sac. Discharge Plan Discharge Clinical Impression: Urinary tract infection, Miscarriage Patient Disposition: Home, Self-Care Condition: Improved Instructions: Urinary Tract Infection in Women (DC) Additional Instructions: As we discussed, the blood test shows that your hormone levels are falling nicely compared to the values you reported in the clinic last week. They are stable from February. There are no signs of major infection. Your ultrasound shows no evidence of an intrauterine , ovarian abnormalities or free fluid. Keep any pending follow-up blood tests and appointments you have with your Ob provider to continue monitoring those hormone levels. Your given an [id number] medication called azo to help with your bladder pain. I am glad this was somewhat helpful. This is old under the name ?urinary pain relief? and is available at the pharmacy if you need more. I am starting you on an antibiotic, ciprofloxacin. Take 1 pill 2 times daily for the next 5 days. You will have a few leftover tablets that you may discard. Your symptoms should be markedly better in 48 hours. It is okay to use Tylenol and or ibuprofen as well. If you are not improving by morning, please call your primary care provider for further assistance and guidance. Activity Level: No Restrictions Discharge Diet: Regular Prescriptions: No Action clonazepam 1 mg tablet 1 mg PRN olanzapine 10 mg tablet promethazine 25 mg tablet hydroxyzine HCl 25 mg tablet ondansetron 4 mg tablet,disintegrating eletriptan 40 mg tablet 40 mg Hold Instructions: 6 weeks after surgery Botox 200 unit recon soln Patient Comments: 200 unit every three months Vyepti 100 mg/mL solution IV Hold Instructions: 6 weeks after surgery Patient Comments: 100 mg intravenously every three months promethazine 25 mg tablet 25 mg PO Q6H PRNQty: 30 0RF sucralfate 1 gram tablet 1 g PO BID Qty: 60 2RF Follow Up/Referrals: Olga Rivas, MATERIAL COORDINATOR, CNC APPLICATIONS ENGINEER [Primary Care Provider] - Stand Alone Forms: [facility] Instructions
[2023-04-13 05:12] LABS: Basophils Absolute Auto 0.04 K/uL (0.00-0.30); Basophils Percent Auto 0.5 % (0.0-3.0); Eosinophils Absolute Auto 0.06 K/uL (0.00-0.50); Eosinophils Percent Auto 0.7 % (0.0-7.0); Hematocrit 36.8 % (33.0-51.0); Hemoglobin* 12.5 gm/dL (12.0-16.0); Immature Granulocytes Abs Auto 0.01 K/uL (0.00-0.30); Immature Granulocytes Pct Auto 0.1 %; Lymphocytes Absolute Auto 1.92 K/uL (0.90-2.90); Lymphocytes Percent Auto 23.5 % (20-44); Mean Corpuscular HGB Conc 34 gm/dL (32-36); Mean Corpuscular Hemoglobin 30 pg (26-34); Mean Corpuscular Volume 88 fL (80-100); Monocytes Percent Auto 6.1 % (0.0-11.0); Neutrophils Absolute Auto 5.63 K/uL (1.7-7.0); Neutrophils Percent Auto 69.1 % (42.0-72.0); Platelet Count* 303 K/uL (140-440); RDW Coefficient of Variation % 12.4 % (11.5-15.5); Red Blood Count 4.18 m/uL (4.00-5.20); White Blood Count* 8.16 K/uL (4.50-11.00)
[2023-04-13 05:14] LABS: Slide Review Reflex No
[2023-04-13 05:44] LABS: HCG Quantitative* 165.19 mIU/mL
[2023-04-13 06:06] VITALS: BP 95/66; PULSE 80; RESP 16; O2SAT 100
[2023-04-13 06:13] LABS: Appearance Urine Cloudy (Clear); Bilirubin Urine Negative (Negative); Blood Urine 3+ (Negative); Color Urine Red (Yellow); Glucose Urine Negative (Negative); Ketones Urine Negative (Negative); Leukocyte Esterase Urine 3+ (Negative); Nitrite Urine Negative (Negative); Protein Urine 2+ (Negative); Urobilinogen Urine 0.2 (0.2-1.0)
[2023-04-13] MEDS: ACETAMINOPHEN 500 MG TABLET 1000 MG PO (06:15)
[2023-04-13 06:29] LABS: Bacteria Urine Few; Squamous Epithelial Cell Urine Few (None-Few); WBC Urine 25-50 (0-5)
[2023-04-13 07:43] VITALS: BP 90/56; PULSE 83; RESP 16; O2SAT 98
== END 2023-04-13 07:45 | disposition home or self-care (01) ==
PROVIDERS: Emergency Provider Family Medicine; PCP Nurse Practitioner Family
DX: N39.0 Urinary tract infection, site not specified (principal); O03.9 Complete or unspecified spontaneous abortion without complication
CPT/HCPCS: 36415; 51798; 76817; 81003; 81015; 84702; 85025; 87086; 87186; 93976; 95992; 96374; 99284; A9270; J1885